=== PATIENT | female | born 1965 | race American Indian/Alaskan Native ===

== ENCOUNTER 2016-09-02 16:14 | Emergency (ER) | payer SELFPAY ==
[2016-09-02 16:46] VITALS: BP 178/108
--- NOTE | 2016-09-02 22:24 | Emergency Department Report ---
ED Back Pain/Injury HPI - General Chief Complaint: Pain General Stated Complaint: BACK PAIN/SOB/LEG PAIN/WRIST PAIN Time Seen by Provider: 09/02/16 21:50 Source: patient Limitations: No Limitations - History of Present Illness Initial Comments: 51 y/o female complain of back pain x 1 month with painful urination .pt state think she has uti .pt denies any vaginal discharge . MD Complaint: back pain Onset/Timin -: month(s) Similar Symptoms Previously: No Radiation: none Severity: moderate Severity scale (0 -10): 3 Quality: aching Consistency: intermittent Improves With: none Worsens With: none Context: other (urination ) Associated Symptoms: denies other symptoms - Related Data Previous Rx's Medication Instructions Recorded Last Taken Type Acetaminophen/Codeine [Tylenol #3] 1 tab PO Q6H PRN #20 tab 02/02/15 Unknown Rx Cyclobenzaprine [Flexeril 10mg] 10 mg PO QHS #15 tablet 02/02/15 Unknown Rx Ibuprofen [Motrin 600 MG tab] 600 mg PO Q8H PRN #50 tablet 12/27/15 Unknown Rx Sulfamethoxazole/Trimethoprim 1 each PO BID #20 tablet 12/27/15 Unknown Rx [Bactrim DS TAB] metFORMIN [Glucophage] 500 mg PO BID #90 tablet 12/27/15 Unknown Rx oxyCODONE /ACETAMINOPHEN [Percocet 1 tab PO Q6H PRN #30 tablet 12/27/15 Unknown Rx 5/325 mg] Ciprofloxacin [Ciprofloxacin ORAL 500 mg PO Q12H #14 ml 09/02/16 Unknown Rx LIQ] Phenazopyridine [Pyridium] 100 mg PO TID #6 tab 09/02/16 Unknown Rx Allergies Allergy/AdvReac Type Severity Reaction Status Date / Time No Known Allergies Allergy Verified 12/29/14 22:38 ED Review of Systems ROS: Stated complaint: BACK PAIN/SOB/LEG PAIN/WRIST PAIN Other details as noted in HPI Constitutional: denies: chills, fever Eyes: denies: eye pain, eye discharge, vision change ENT: denies: ear pain, throat pain Respiratory: denies: cough, shortness of breath, wheezing Cardiovascular: denies: chest pain, palpitations Endocrine: no symptoms reported Gastrointestinal: denies: abdominal pain, nausea, diarrhea Genitourinary: dysuria. denies: urgency, discharge Musculoskeletal: denies: back pain, joint swelling, arthralgia Skin: denies: rash, lesions Neurological: denies: headache, weakness, paresthesias Psychiatric: denies: anxiety, depression Hematological/Lymphatic: denies: easy bleeding, easy bruising ED Past Medical Hx - Past Medical History Previous Medical History?: Yes Hx Hypertension: Yes Hx Diabetes: Yes Hx Asthma: Yes - Surgical History Past Surgical History?: Yes Additional Surgical History: L wrist surgery 11/25, hysterectomy - Social History Smoking Status: Never Smoker Substance Use Type: None - Medications Home Medications: Home Medications Medication Instructions Recorded Confirmed Last Taken Type Acetaminophen/Codeine [Tylenol #3] 1 tab PO Q6H PRN #20 tab 02/02/15 12/26/15 Unknown Rx Cyclobenzaprine [Flexeril 10mg] 10 mg PO QHS #15 tablet 02/02/15 12/26/15 Unknown Rx Ibuprofen [Motrin 600 MG tab] 600 mg PO Q8H PRN #50 tablet 12/27/15 Unknown Rx Sulfamethoxazole/Trimethoprim 1 each PO BID #20 tablet 12/27/15 Unknown Rx [Bactrim DS TAB] metFORMIN [Glucophage] 500 mg PO BID #90 tablet 12/27/15 Unknown Rx oxyCODONE /ACETAMINOPHEN [Percocet 1 tab PO Q6H PRN #30 tablet 12/27/15 Unknown Rx 5/325 mg] Ciprofloxacin [Ciprofloxacin ORAL 500 mg PO Q12H #14 ml 09/02/16 Unknown Rx LIQ] Phenazopyridine [Pyridium] 100 mg PO TID #6 tab 09/02/16 Unknown Rx ED Physical Exam - General Limitations: No Limitations General appearance: alert, in no apparent distress - Head Head exam: Present: atraumatic, normocephalic - Eye Eye exam: Present: normal appearance - ENT ENT exam: Present: mucous membranes moist - Neck Neck exam: Present: normal inspection - Respiratory Respiratory exam: Present: normal lung sounds bilaterally. Absent: respiratory distress - Cardiovascular Cardiovascular Exam: Present: regular rate, normal rhythm. Absent: systolic murmur, diastolic murmur, rubs, gallop - GI/Abdominal GI/Abdominal exam: Present: soft, normal bowel sounds - Extremities Exam Extremities exam: Present: normal inspection - Back Exam Back exam: Present: normal inspection - Neurological Exam Neurological exam: Present: alert, oriented X3 - Psychiatric Psychiatric exam: Present: normal affect, normal mood - Skin Skin exam: Present: warm, dry, intact, normal color. Absent: rash ED Course Vital Signs 09/02/16 09/02/16 16:43 21:35 Temperature 98.3 F 97.8 F Pulse Rate 97 H 86 Respiratory 20 18 Rate Blood Pressure 178/108 Blood Pressure 178/108 [Right] O2 Sat by Pulse 98 96 Oximetry ED Medical Decision Making - Lab Data Laboratory Results - last 24 hr 09/02/16 Unknown Urine Color Yellow Urine Turbidity Clear Urine pH 6.0 Ur Specific Griffin 1.023 Urine Protein 100 mg/dl Urine Glucose (UA) Neg Urine Ketones Neg Urine Blood Neg Urine Nitrite Neg Urine Bilirubin Neg Urine Urobilinogen 2.0 Ur Leukocyte Esterase Mod Urine WBC (Auto) 6.0 Urine RBC (Auto) 3.0 U Epithel Cells (Auto) 15.0 H Urine Bacteria (Auto) 1+ Urine Mucus Few - Medical Decision Making urinary tract infection ,pt had been treat for uti in last 3 month with bactrim ds will use ciproflaxacin pt current hypertension at 178/108 pt state she was evaluate at [facility] this week and start on new hypertension medication .pt state she has not taken pm dosage .pt is asymptomatic. He has a follow-up appointment at [facility] in 3 days. She states what take medication when she arrived at home [facility] Critical care attestation.: If time is entered above; I have spent that time in minutes in the direct care of this critically ill patient, excluding procedure time. ED Disposition Clinical Impression: Urinary tract infection Qualifiers: Urinary tract infection type: site unspecified Hematuria presence: without hematuria Qualified Code(s): N39.0 - Urinary tract infection, site not specified Disposition: DISCHARGED TO HOME OR SELFCARE Is pt being admited?: No Does the pt Need Aspirin: No Condition: Stable Instructions: Urinary Tract Infection in Women (ED) Prescriptions: Ciprofloxacin [Ciprofloxacin ORAL LIQ] 500 mg PO Q12H #14 ml Phenazopyridine [Pyridium] 100 mg PO TID #6 tab Referrals: PRIMARY CARE, [Primary Care Provider] - 3-5 Days [facility] [Outside] - 3-5 Days Forms: Work/School Release Form(ED) Time of Disposition: 23:19
[2016-09-02 22:53] LABS: Bacteria,Urine 1+ /HPF (Negative); Bilirubin,Urine NEG (Negative); Blood,Urine NEG (Negative); Ketones,Urine NEG (Negative); Leukocyte Esterase,Urine MOD (Negative); Mucus,Urine FEW /HPF; Nitrite,Urine NEG (Negative)
== END 2016-09-02 23:28 | disposition home or self-care (01) ==
LOC: ED 16:14
DX: N39.0 Urinary tract infection, site not specified (principal); I10 Essential (primary) hypertension; E11.9 Type 2 diabetes mellitus without complications; J45.909 Unspecified asthma, uncomplicated
CPT/HCPCS: 81001; 99283

== ENCOUNTER 2017-01-16 11:21 | Emergency (ER) | payer OTHER ==
[2017-01-16 12:49] LABS: Basophils % (Auto) 0.7 % (0.0-1.8); Eosinophils % (Auto) 2.4 % (0.0-4.3); Hematocrit 38.6 % (30.3-42.9); Hemoglobin 12.8 gm/dl (10.1-14.3); Mean Corpuscular HGB Conc 33 % (30-34); Mean Corpuscular Hemoglobin 30 pg (28-32); Mean Corpuscular Volume 91 fl (79-97); Platelet Count 118 K/mm3 (140-440); Red Blood Count 4.24 M/mm3 (3.65-5.03); Red Cell Distribution Width 13.5 % (13.2-15.2); White Blood Count 4.9 K/mm3 (4.5-11.0)
[2017-01-16 13:02] LABS: Anion Gap 17 mmol/L; Blood Urea Nitrogen 14 mg/dL (7-17); Calcium 9.3 mg/dL (8.4-10.2); Carbon Dioxide 26 mmol/L (22-30); Chloride 95.7 mmol/L (98-107); Glucose 397 mg/dL (65-100); Sodium 135 mmol/L (137-145)
--- NOTE | 2017-01-16 14:06 | XRay Report ---
CHEST 2 VIEWS INDICATION: Shortness of breath. COMPARISON: 08/22/2015 FINDINGS: PA and lateral chest radiographs demonstrate stable cardiomediastinal silhouette and right more than left lung scarring. No significant pleural effusions or CHF. Stable bones. CONCLUSION: No acute chest process with stable fibrotic changes, as described. Thank you for the opportunity to participate in this patient's care.
[2017-01-16] MEDS ORDERED: NACL 0.9% 1000 ML 1,000 ML ONE (16:12)
[2017-01-16 16:31] VITALS: BP 144/82
[2017-01-16] MEDS ORDERED: NACL 0.9% 1000 ML 1,000 ML IV ONE (16:34)
[2017-01-16 16:49] LABS: Bilirubin,Urine NEG (Negative); Blood,Urine NEG (Negative); Ketones,Urine NEG (Negative); Leukocyte Esterase,Urine LG (Negative); Mucus,Urine FEW /HPF; Nitrite,Urine NEG (Negative); Urobilinogen,Urine < 2.0 mg/dL (<2.0)
--- NOTE | 2017-01-16 17:41 | Emergency Department Report ---
ED Shortness of Breath HPI - General Chief Complaint: Dyspnea/Respdistress Stated Complaint: SOB Time Seen by Provider: 01/16/17 12:07 Source: patient Mode of arrival: Wheelchair Limitations: No Limitations - History of Present Illness Initial Comments: Pt is a 51 yr old female who presents to the ED c/o generalized weakness, body aches, and dyspnea. She reports this has been going on for the past few months and has not been able to follow up with primary care due to lack of insurance and lack of money. Pt denies any fevers, chills, VARGAS, cough, congestion, sore throat, CP, abd pain, NVD, extremity swelling/pain, travel, or sick contacts - Related Data Previous Rx's Medication Instructions Recorded Last Taken Type Acetaminophen/Codeine [Tylenol #3] 1 tab PO Q6H PRN #20 tab 02/02/15 Unknown Rx Cyclobenzaprine [Flexeril 10mg] 10 mg PO QHS #15 tablet 02/02/15 Unknown Rx Ibuprofen [Motrin 600 MG tab] 600 mg PO Q8H PRN #50 tablet 12/27/15 Unknown Rx Sulfamethoxazole/Trimethoprim 1 each PO BID #20 tablet 12/27/15 Unknown Rx [Bactrim DS TAB] metFORMIN [Glucophage] 500 mg PO BID #90 tablet 12/27/15 Unknown Rx oxyCODONE /ACETAMINOPHEN [Percocet 1 tab PO Q6H PRN #30 tablet 12/27/15 Unknown Rx 5/325 mg] Ciprofloxacin [Ciprofloxacin ORAL 500 mg PO Q12H #14 ml 09/02/16 Unknown Rx LIQ] Phenazopyridine [Pyridium] 100 mg PO TID #6 tab 09/02/16 Unknown Rx Allergies Allergy/AdvReac Type Severity Reaction Status Date / Time No Known Allergies Allergy Verified 12/29/14 22:38 ED Review of Systems ROS: Stated complaint: SOB Other details as noted in HPI Comment: All other systems reviewed and negative ED Past Medical Hx - Past Medical History Previous Medical History?: Yes Hx Hypertension: Yes Hx Diabetes: Yes Hx Asthma: Yes - Surgical History Past Surgical History?: Yes Additional Surgical History: L wrist surgery 11/25, hysterectomy - Social History Smoking Status: Never Smoker Substance Use Type: Alcohol, Prescribed - Medications Home Medications: Home Medications Medication Instructions Recorded Confirmed Last Taken Type Acetaminophen/Codeine [Tylenol #3] 1 tab PO Q6H PRN #20 tab 02/02/15 12/26/15 Unknown Rx Cyclobenzaprine [Flexeril 10mg] 10 mg PO QHS #15 tablet 02/02/15 12/26/15 Unknown Rx Ibuprofen [Motrin 600 MG tab] 600 mg PO Q8H PRN #50 tablet 12/27/15 Unknown Rx Sulfamethoxazole/Trimethoprim 1 each PO BID #20 tablet 12/27/15 Unknown Rx [Bactrim DS TAB] metFORMIN [Glucophage] 500 mg PO BID #90 tablet 12/27/15 Unknown Rx oxyCODONE /ACETAMINOPHEN [Percocet 1 tab PO Q6H PRN #30 tablet 12/27/15 Unknown Rx 5/325 mg] Ciprofloxacin [Ciprofloxacin ORAL 500 mg PO Q12H #14 ml 09/02/16 Unknown Rx LIQ] Phenazopyridine [Pyridium] 100 mg PO TID #6 tab 09/02/16 Unknown Rx ED Physical Exam - General Limitations: No Limitations General appearance: alert, in no apparent distress, other (Morbidly obese) - Head Head exam: Present: atraumatic, normocephalic - Eye Eye exam: Present: normal appearance, PERRL, EOMI. Absent: scleral icterus, conjunctival injection Pupils: Present: normal accommodation - ENT ENT exam: Present: normal exam, mucous membranes moist - Neck Neck exam: Present: normal inspection, full ROM. Absent: tenderness, meningismus - Respiratory Respiratory exam: Present: normal lung sounds bilaterally, decreased breath sounds (at the bases). Absent: respiratory distress, wheezes, rales, rhonchi, stridor, chest wall tenderness - Cardiovascular Cardiovascular Exam: Present: regular rate, normal rhythm. Absent: systolic murmur, diastolic murmur, rubs, gallop - GI/Abdominal GI/Abdominal exam: Present: soft, normal bowel sounds. Absent: distended, tenderness, guarding, rebound, rigid - Extremities Exam Extremities exam: Present: normal inspection - Back Exam Back exam: Present: normal inspection - Neurological Exam Neurological exam: Present: alert, oriented X3 - Psychiatric Psychiatric exam: Present: normal affect, normal mood - Skin Skin exam: Present: warm, dry, intact, normal color. Absent: rash ED Course Vital Signs 01/16/17 01/16/17 11:31 16:15 Temperature 97.9 F 97.7 F Pulse Rate 97 H 84 Respiratory 20 16 Rate Blood Pressure 156/131 Blood Pressure 144/82 [Left] O2 Sat by Pulse 100 100 Oximetry ED Medical Decision Making - Lab Data Result diagrams: 01/16/17 12:22 01/16/17 12:22 - EKG Data -: EKG Interpreted by Me - EKG Data 01/16/17 17:37 Normal sinus rhythm at 74 bpm, QTC 437 ms, normal axis, no LVH, no ST changes, no STEMI - Radiology Data Radiology results: report reviewed, image reviewed CXR: Fibrotic changes, right greater than the left - Medical Decision Making PERC score: 0 Given these are chronic issues for the patient and she has fibrotic changes in the lungs, patient instructed to follow up with primary care I also discussed patient's elevated glucose numbers, patient suffers from Type II DM, and takes metformin 500mg BID. She has been compliant and does report she used to be on 1000mg BID. The "pains" she has been c/o are likely neuropathic pains in her hands and feet. Pt likely has uncontrolled diabetes. She has not had her A1C checked in a long time. It was recommended to the patient to follow up with [place] or a PMD of her choice to get her DM on track. Diet and lifestyle changes was also discussed with the patient. Critical care attestation.: If time is entered above; I have spent that time in minutes in the direct care of this critically ill patient, excluding procedure time. ED Disposition Clinical Impression: Weakness, Body aches, Dyspnea, Hyperglycemia Disposition: DC-01 TO HOME OR SELFCARE Is pt being admited?: No Condition: Stable Instructions: Weakness (ED), Arthralgia (ED), Dyspnea (ED), Diabetic Hyperglycemia (ED) Referrals: PRIMARY CARE, [Primary Care Provider] - 3-5 Days
--- NOTE | 2017-01-16 19:08 | Emergency Department Report ---
Entered by YASIR ABARCA, acting as scribe for SUKHDEV OTERO PA. Chief Complaint: Dyspnea/Respdistress Stated Complaint: SOB Time Seen by Provider: 01/16/17 12:03 - HPI History of Present Illness: 51 y/o female with PMHx of diabetes, HTN, and asthma, presents to the ED c/o SOB beginning several days ago. Associated symptoms of occasional nausea and dizziness described as lightheadedness, but she denies vomiting and diarrhea. Secondary c/o generalized pain beginning several months ago. Patient states she is compliant with metformin, amlodipine, glipizide, and gabapentin, and has an asthma pump at home. No other complaints. - ROS Review of Systems: RESP: positive for SOB NEURO: positive for dizziness CONSTITUTIONAL : positive for body aches All other systems reviewed and negative. - Exam Vital Signs: Vital Signs 01/16/17 11:31 Temperature 97.9 F Pulse Rate 97 H Respiratory 20 Rate Blood Pressure 156/131 O2 Sat by Pulse 100 Oximetry Physical Exam: Constitutional: Non toxic appearing, NAD. Cardiovascular: Normal rate and rhythm with normal S1/S2 sounds. Respiratory: No respiratory distress. Lung sounds clear to auscultation bilaterally. No wheezing. Abdomen: Abdomen is non-distended, soft with no tenderness to palpation in all quadrants. MSE screening note: Focused history and physical exam performed. Due to findings the following was ordered: ED Medical Decision Making - Medical Decision Making Alert and oriented x3. EKG, chest X-ray, and labs ordered. No acute distress, Patient is stable. ED Disposition for MSE Condition: Stable Referrals: PRIMARY CARE,MD [Primary Care Provider] - 3-5 Days This documentation as recorded by the scribe,YASIR ABARCA,accurately reflects the service I personally performed and the decisions made by ,SUKHDEV OTERO PA.
== END 2017-01-16 19:06 | disposition home or self-care (01) ==
LOC: ED 11:21
DX: E11.65 Type 2 diabetes mellitus with hyperglycemia (principal); R53.1 Weakness; M79.1 Myalgia; R06.00 Dyspnea, unspecified; I10 Essential (primary) hypertension; J45.909 Unspecified asthma, uncomplicated
CPT/HCPCS: 36415; 71020; 80048; 81001; 82962; 84484; 84703; 85025; 93005; 93010; 96360; 99284; J7030

== ENCOUNTER 2017-04-01 03:58 | Emergency (ER) | payer SELFPAY ==
[2017-04-01] MEDS ORDERED: ZOFRAN ODT PO ONE (06:14)
[2017-04-01] MEDS ORDERED: NORCO 10/325 PO ONE (06:14)
--- NOTE | 2017-04-01 07:53 | XRay Report ---
FINAL REPORT EXAM: XR FOOT 2V RT HISTORY: fall/rt foot swelling TECHNIQUE: Two views of the right foot. PRIORS: None. FINDINGS: There is no evidence of acute fracture involving the foot. Lateral view demonstrates a distal fibular fracture.. There is no evidence of joint dislocation. IMPRESSION: No acute fracture seen involving the foot. Lateral view suggest fracture involving distal fibula. See separate report for right ankle.
--- NOTE | 2017-04-01 07:54 | XRay Report ---
FINAL REPORT EXAM: XR ANKLE 2V RT HISTORY: fall/rt ankle swelling TECHNIQUE: Right ankle two views PRIORS: None. FINDINGS: There is an oblique fracture through the distal fibula. This probably extends to the level of the joint, compatible with a Mariee B fracture. There is a small avulsion fragment adjacent to the medial malleolus. Slight displacement posterolaterally of the talus, medial malleolar fragment and distal fibula noted. There is soft tissue swelling especially laterally. IMPRESSION: Oblique fracture of distal fibula. Avulsion fracture of medial malleolus. There is mild posterolateral displacement.
--- NOTE | 2017-04-01 08:10 | Emergency Department Report ---
HPI - General Chief Complaint: Extremity Injury, Lower Time Seen by Provider: 04/01/17 07:48 - HPI HPI: Pt is a 51 yo with PMH of DM and HTN controlled qwith medication who presents staus post fall from kitchen steps at midnight today. Pt states she twisted her ankle and heard a pop as she was going down the steps, she states she did not hit her head or had any LOC. She reports right ankle pain and swelling since fall. she describes pain as throbbing and aching in nature localized to ankle. she denies loss of sensation ED Past Medical Hx - Past Medical History Previous Medical History?: Yes Hx Hypertension: Yes Hx Diabetes: Yes (po meds) Hx Asthma: Yes Additional medical history: diabetic neuropathy - Surgical History Past Surgical History?: Yes Additional Surgical History: L wrist surgery 11/25, hysterectomy - Social History Smoking Status: Never Smoker Substance Use Type: None - Medications Home Medications: Home Medications Medication Instructions Recorded Confirmed Last Taken Type Sulfamethoxazole/Trimethoprim 1 each PO BID #20 tablet 12/27/15 Unknown Rx [Bactrim DS TAB] metFORMIN [Glucophage] 500 mg PO BID #90 tablet 12/27/15 Unknown Rx oxyCODONE /ACETAMINOPHEN [Percocet 1 tab PO Q6H PRN #30 tablet 12/27/15 Unknown Rx 5/325 mg] Ciprofloxacin [Ciprofloxacin ORAL 500 mg PO Q12H #14 ml 09/02/16 Unknown Rx LIQ] Phenazopyridine [Pyridium] 100 mg PO TID #6 tab 09/02/16 Unknown Rx Acetaminophen/Codeine [Tylenol 1 tab PO Q6H PRN #20 tab 04/01/17 Unknown Rx /Codeine # 3 tab] Cyclobenzaprine [Flexeril 10 MG 10 mg PO QHS #24 tablet 04/01/17 Unknown Rx TAB] Ibuprofen [Motrin 600 MG tab] 600 mg PO Q8H PRN #50 tablet 04/01/17 Unknown Rx ED Review of Systems ROS: Stated complaint: RT ANKLE PAIN Other details as noted in HPI Constitutional: denies: chills, fever Eyes: denies: eye pain, eye discharge, vision change ENT: denies: ear pain, throat pain Respiratory: denies: cough, shortness of breath, wheezing Cardiovascular: denies: chest pain, palpitations Endocrine: no symptoms reported Gastrointestinal: denies: abdominal pain, nausea, vomiting, diarrhea Genitourinary: denies: urgency, dysuria, discharge Musculoskeletal: denies: back pain, joint swelling, arthralgia Skin: denies: rash, lesions Neurological: denies: headache, weakness, numbness, paresthesias, confusion Psychiatric: denies: anxiety, depression Hematological/Lymphatic: denies: easy bleeding, easy bruising Physical Exam - Physical Exam Vital Signs: Vital Signs 04/01/17 04/01/17 04:58 06:28 Temperature 98.2 F Pulse Rate 82 Respiratory 18 15 Rate Blood Pressure 150/87 O2 Sat by Pulse 98 Oximetry Physical Exam: GENERAL: Alert and oriented x3, no apparent distress, Normal Gait, atraumatic. HEAD: Head is normocephalic and a-traumatic. NECK: Supple. Non edematous, No lymphadenopathy or thyromegaly. LUNGS: Symetrical with respiration, No wheezing, no rales or crackles, CTAB. HEART: S1, S2 present, regular rate and rhythm without murmur, no rubs, no gallops. EXTREMITIES/MUSCULOSKELETAL: No cyanosis, clubbing, rash, lesions or edema. Full ROM bilaterally. UE/LE Pulses 2+ bilaterally. right ankle swelling lateral aspect, no active bleed, tender to palpation, no deformity seen, NEUROLOGIC: No focal Deficit, Cranial nerves II through XII are grossly intact. No loss of sensation, PSYCHIATRIC: Mood is congruent with affect, denies suicidal or homicidal ideations. SKIN: Warm and dry, No lesions, No ulceration or induration present. ED Course Vital Signs 04/01/17 04/01/17 04:58 06:28 Temperature 98.2 F Pulse Rate 82 Respiratory 18 15 Rate Blood Pressure 150/87 O2 Sat by Pulse 98 Oximetry ED Medical Decision Making - Radiology Data Radiology results: report reviewed, image reviewed FINAL REPORT EXAM: XR ANKLE 2V RT HISTORY: fall/rt ankle swelling TECHNIQUE: Right ankle two views PRIORS: None. FINDINGS: There is an oblique fracture through the distal fibula. This probably extends to the level of the joint, compatible with a Mariee B fracture. There is a small avulsion fragment adjacent to the medial malleolus. Slight displacement posterolaterally of the talus, medial malleolar fragment and distal fibula noted. There is soft tissue swelling especially laterally. IMPRESSION: Oblique fracture of distal fibula. Avulsion fracture of medial malleolus. There is mild posterolateral displacement. Transcribed By: ANTONY Dictated By: LORENZO JIMÉNEZ MD Electronically Authenticated By: LORENZO JIMÉNEZ MD Signed Date/Time: 04/01/17 0748 - Medical Decision Making 51 yo f presents with fracture of lower leg ED course Xrays taken. See results above. Pt recieved Pain control. OCL posterior leg Splint applied to leg and crutches given at d/c. Discussed respiratory: The patient. Discussed the patient to keep leg elevated and stay off of the foot. Discussed to call orthopedic office tomorrow to make an appointment to be seen as soon as possible Post splint exam: neurovascular intact. pt is aaox3 vss, no acute distress discussed follow up with Orthopedic tomorrow as reffered. Critical care attestation.: If time is entered above; I have spent that time in minutes in the direct care of this critically ill patient, excluding procedure time. ED Disposition Clinical Impression: Ankle fracture, lateral malleolus, closed Qualifiers: Encounter type: initial encounter Fracture alignment: displaced Laterality: right Qualified Code(s): S82.61XA - Displaced fracture of lateral malleolus of right fibula, initial encounter for closed fracture Closed fibular fracture Qualifiers: Encounter type: initial encounter Fibula location: shaft Fracture morphology: oblique Fracture alignment: nondisplaced Laterality: right Qualified Code(s): S82.434A - Nondisplaced oblique fracture of shaft of right fibula, initial encounter for closed fracture Disposition: DC- TO HOME OR SELFCARE Is pt being admited?: No Does the pt Need Aspirin: No Condition: Stable Instructions: Ankle Fracture (ED), Leg Fracture (ED), RICE Therapy (ED) Prescriptions: Cyclobenzaprine [Flexeril 10 MG TAB] 10 mg PO QHS #24 tablet Acetaminophen/Codeine [Tylenol /Codeine # 3 tab] 1 tab PO Q6H PRN #20 tab PRN Reason: Pain Ibuprofen [Motrin 600 MG tab] 600 mg PO Q8H PRN #50 tablet PRN Reason: Pain Referrals: PRADIP REYES MD [Primary Care Provider] - 3-5 Days WILD CORRALES MD [Staff Physician] - 3-5 Days Forms: Work/School Release Form(ED) Time of Disposition: 08:27
[2017-04-01 08:26] VITALS: BP 106/48
== END 2017-04-01 09:34 | disposition home or self-care (01) ==
LOC: ED 03:58
DX: S82.61XA Displaced fracture of lateral malleolus of right fibula, initial encounter for closed fracture (principal); I10 Essential (primary) hypertension; E11.40 Type 2 diabetes mellitus with diabetic neuropathy, unspecified; W10.9XXA Fall (on) (from) unspecified stairs and steps, initial encounter; Y93.89 Activity, other specified; Y92.000 Kitchen of unspecified non-institutional (private) residence as the place of occurrence of the external cause; Y99.8 Other external cause status
CPT/HCPCS: 99284; Q0162

== ENCOUNTER 2017-07-26 10:21 | Emergency (ER) | payer SELFPAY ==
[2017-07-26 10:30] VITALS: BP 157/99
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
== END 2017-07-26 12:21 | disposition left against medical advice (07) ==
LOC: ED 10:21
DX: M54.2 Cervicalgia (principal); M54.5 Low back pain; G89.29 Other chronic pain; V49.3XXA Car occupant (driver) (passenger) injured in unspecified nontraffic accident, initial encounter; Y93.89 Activity, other specified; Y99.8 Other external cause status; Y92.410 Unspecified street and highway as the place of occurrence of the external cause
CPT/HCPCS: 99282

== ENCOUNTER 2020-12-20 17:06 | Inpatient (IN) | payer OTHER, SELFPAY ==
[2020-12-20] MEDS ORDERED: cefTRIAXone/NS 1 GM/50 ML 1 GM/50 ML BAG IV ONE (19:31)
[2020-12-20] MEDS ORDERED: AZITHROMYCIN/NS 500 MG/250 ML 500 MG/250 ML BAG IV ONE (19:31)
[2020-12-20] MEDS ORDERED: dexAMETHasone 20 MG/5 ML VIAL IV ONE (19:32)
[2020-12-20] MEDS ORDERED: IPRATROPIUM 0.02% NEBU 2.5 ML IH ONE (19:32)
[2020-12-20] MEDS ORDERED: ALBUTEROL 2.5 MG/3 ML NEBU IH ONE (19:32)
[2020-12-20 19:51] LABS: Basophils % (Auto) 0.4 % (0.0-1.8); Eosinophils % (Auto) 0.1 % (0.0-4.3); Hematocrit 39.5 % (30.3-42.9); Hemoglobin 13.1 gm/dl (10.1-14.3); Lymphocytes # (Auto) 1.2 K/mm3 (1.2-5.4); Lymphocytes % (Auto) 41.2 % (13.4-35.0); Mean Corpuscular HGB Conc 33 % (30-34); Mean Corpuscular Volume 97 fl (79-97); Monocytes # (Auto) 0.4 K/mm3 (0.0-0.8); Monocytes % (Auto) 13.2 % (0.0-7.3); Red Blood Count 4.08 M/mm3 (3.65-5.03); Red Cell Distribution Width 14.4 % (13.2-15.2)
[2020-12-20 20:08] LABS: Alanine Aminotransferase 96 units/L (7-56); Albumin 3.7 g/dL (3.9-5); BUN/Creatinine Ratio 16; Blood Urea Nitrogen 23 mg/dL (7-17); Calcium 8.3 mg/dL (8.4-10.2); Hemolysis Index 21; Platelet Count 116 K/mm3 (140-440)
--- NOTE | 2020-12-20 20:12 | XRay Report ---
CHEST 1 VIEW 12/20/2020 7:30 PM INDICATION / CLINICAL INFORMATION: SOB, hypoxia. COMPARISON: 01/16/17. FINDINGS: SUPPORT DEVICES: None. HEART / MEDIASTINUM: The heart size and pulmonary vasculature are normal. LUNGS / PLEURA: There is mild patchy parenchymal disease in the right mid to lower lung and in the le ft lower lung, more prominent than on the prior exam. No pleural effusion. No pneumothorax. ADDITIONAL FINDINGS: No significant additional findings. IMPRESSION: Mild patchy parenchymal opacities bilaterally are nonspecific. The findings may be relate d to pulmonary edema or pneumonia. Signer Name: Lizandro Mckeon MD Signed: 12/20/2020 8:07 PM Workstation Name: [id number]
--- NOTE | 2020-12-20 20:25 | Emergency Department Report ---
ED Shortness of Breath HPI - General Chief Complaint: Weakness Stated Complaint: WEAKNESS Time Seen by Provider: 12/20/20 19:22 Source: EMS Mode of arrival: Ambulatory Limitations: No Limitations - History of Present Illness Initial Comments: Chief complaint: Fever, shortness of breath, cough, fatigue HPI: This is a 55-year-old female history of asthma, diabetes mellitus, BMI 49 who presents with shortness of breath fever cough chills for 1 week. No known sick contacts. She does not work. She lives with son who does work. Son also smokes in the home. Patient has had shortness of breath, cough, body aches, fever or chills for 1 week. She denies loss of sense of taste or smell. However she has had poor appetite. She did not receive a Covid vaccine. No known previous Covid infection. She denies chest pain, abdominal pain, diarrhea. Oxygen saturation 58% on room air in triage. Temperature 100.6 F, MD Complaint: shortness of breath, cough -: Gradual, week(s) (1 week) Severity: severe Consistency: constant Improves With: rest Worsens With: exertion Known History Of: asthma Context: recent illness Associated Symptoms: fever, cough Treatments Prior to Arrival: none - Related Data Previous Rx's Medication Instructions Recorded Last Taken Type Sulfamethoxazole/Trimethoprim 1 each PO BID #20 tablet 12/27/15 Unknown Rx [Bactrim DS TAB] metFORMIN [Glucophage] 500 mg PO BID #90 tablet 12/27/15 Unknown Rx oxyCODONE /ACETAMINOPHEN [Percocet 1 tab PO Q6H PRN #30 tablet 12/27/15 Unknown Rx 5/325 mg] Ciprofloxacin [Ciprofloxacin ORAL 500 mg PO Q12H #14 ml 09/02/16 Unknown Rx LIQ] Phenazopyridine [Pyridium] 100 mg PO TID #6 tab 09/02/16 Unknown Rx Acetaminophen/Codeine [Tylenol 1 tab PO Q6H PRN #20 tab 04/01/17 Unknown Rx /Codeine # 3 tab] Cyclobenzaprine [Flexeril 10 MG 10 mg PO QHS #24 tablet 04/01/17 Unknown Rx TAB] Ibuprofen [Motrin 600 MG tab] 600 mg PO Q8H PRN #50 tablet 04/01/17 Unknown Rx Allergies Allergy/AdvReac Type Severity Reaction Status Date / Time No Known Allergies Allergy Verified 12/29/14 22:38 ED Review of Systems ROS: Stated complaint: WEAKNESS Other details as noted in HPI Comment: All other systems reviewed and negative Constitutional: chills, fever, malaise ENT: denies: throat pain, congestion Respiratory: cough, shortness of breath. denies: wheezing Cardiovascular: denies: chest pain Gastrointestinal: denies: abdominal pain, nausea, vomiting Neurological: headache ED Past Medical Hx - Past Medical History Previous Medical History?: Yes Hx Hypertension: Yes Hx Diabetes: Yes (po meds) Hx Asthma: Yes Additional medical history: diabetic neuropathy - Surgical History Additional Surgical History: L wrist surgery 11/25, hysterectomy - Social History Smoking Status: Never Smoker - Medications Home Medications: Home Medications Medication Instructions Recorded Confirmed Last Taken Type Sulfamethoxazole/Trimethoprim 1 each PO BID #20 tablet 12/27/15 Unknown Rx [Bactrim DS TAB] metFORMIN [Glucophage] 500 mg PO BID #90 tablet 12/27/15 Unknown Rx oxyCODONE /ACETAMINOPHEN [Percocet 1 tab PO Q6H PRN #30 tablet 12/27/15 Unknown Rx 5/325 mg] Ciprofloxacin [Ciprofloxacin ORAL 500 mg PO Q12H #14 ml 09/02/16 Unknown Rx LIQ] Phenazopyridine [Pyridium] 100 mg PO TID #6 tab 09/02/16 Unknown Rx Acetaminophen/Codeine [Tylenol 1 tab PO Q6H PRN #20 tab 04/01/17 Unknown Rx /Codeine # 3 tab] Cyclobenzaprine [Flexeril 10 MG 10 mg PO QHS #24 tablet 04/01/17 Unknown Rx TAB] Ibuprofen [Motrin 600 MG tab] 600 mg PO Q8H PRN #50 tablet 04/01/17 Unknown Rx ED Physical Exam - General Limitations: No Limitations General appearance: alert, other (Speaking full word sentences, mild work of breathing.) - Head Head exam: Present: atraumatic, normocephalic - Eye Eye exam: Present: normal appearance - ENT ENT exam: Present: mucous membranes moist - Neck Neck exam: Present: normal inspection, full ROM - Respiratory Respiratory exam: Present: decreased breath sounds. Absent: wheezes, rales, rhonchi, accessory muscle use, prolonged expiratory - Cardiovascular Cardiovascular Exam: Present: normal rhythm, tachycardia, normal heart sounds. Absent: systolic murmur, diastolic murmur, rubs, gallop - GI/Abdominal GI/Abdominal exam: Present: soft, normal bowel sounds. Absent: distended, tenderness, guarding - Extremities Exam Extremities exam: Present: normal inspection - Neurological Exam Neurological exam: Present: alert, oriented X3 - Psychiatric Psychiatric exam: Present: normal affect, normal mood - Skin Skin exam: Present: warm, dry, intact, normal color. Absent: rash ED Course Vital Signs 12/20/20 12/20/20 19:16 19:50 Temperature 100.6 F H Pulse Rate 107 H Pulse Rate [ 108 H Bilateral] Respiratory 20 Rate Respiratory 20 Rate [Bilateral ] Blood Pressure 105/53 [Right] ED Medical Decision Making - Lab Data Result diagrams: 12/20/20 19:27 12/20/20 19:43 Laboratory Results - last 24 hr 12/20/20 12/20/20 12/20/20 19:27 19:27 19:27 WBC 2.9 L RBC 4.08 Hgb 13.1 Hct 39.5 MCV 97 MCH 32 MCHC 33 RDW 14.4 Plt Count 116 L Lymph % (Auto) 41.2 H Mason % (Auto) 13.2 H Eos % (Auto) 0.1 Baso % (Auto) 0.4 Lymph # (Auto) 1.2 Mason # (Auto) 0.4 Eos # (Auto) 0.0 Baso # (Auto) 0.0 Seg Neutrophils % 45.1 Seg Neutrophils # 1.3 L D-Dimer Sodium 135 L Potassium 4.7 Chloride 96.1 L Carbon Dioxide 26 Anion Gap 18 BUN 23 H Creatinine 1.4 H Estimated GFR 47 BUN/Creatinine Ratio 16 Glucose 295 H Lactic Acid 1.70 Calcium 8.3 L Ferritin Total Bilirubin 0.90 AST 125 H ALT 96 H Alkaline Phosphatase 323 H Lactate Dehydrogenase Troponin T < 0.010 C-Reactive Protein Total Protein 8.7 H Albumin 3.7 L Albumin/Globulin Ratio 0.7 12/20/20 12/20/20 12/20/20 19:27 19:43 19:43 WBC RBC Hgb Hct MCV MCH MCHC RDW Plt Count Lymph % (Auto) Mason % (Auto) Eos % (Auto) Baso % (Auto) Lymph # (Auto) Mason # (Auto) Eos # (Auto) Baso # (Auto) Seg Neutrophils % Seg Neutrophils # D-Dimer 260.58 H Sodium Potassium Chloride Carbon Dioxide Anion Gap BUN Creatinine Estimated GFR BUN/Creatinine Ratio Glucose 297 H Lactic Acid Calcium Ferritin 1420.0 H Total Bilirubin AST ALT Alkaline Phosphatase Lactate Dehydrogenase 491 H Troponin T C-Reactive Protein 5.50 H Total Protein Albumin Albumin/Globulin Ratio - Radiology Data Radiology results: report reviewed Patient Name: BROOKE HAYNES Gender: Female Date of : 1965 Referring Provider: SUSU ROSALES Organization: [facility] Accession Number: [id number] Requested Date: December 20, 2020 19:23 Report Status: Final Requested Procedure: 1 Procedure Description: XR chest 1V ap Modality: XR Findings Reporting MD: Lizandro Mckeon Dictation Time: December 20, 2020 19:07 Equestrian Trainer: Not available Check Inspector Date: CHEST 1 VIEW 12/20/2020 7:30 PM INDICATION / CLINICAL INFORMATION: SOB, hypoxia. COMPARISON: 01/16/17. FINDINGS: SUPPORT DEVICES: None. HEART / MEDIASTINUM: The heart size and pulmonary vasculature are normal. LUNGS / PLEURA: There is mild patchy parenchymal disease in the right mid to lower lung and in the left lower lung, more prominent than on the prior exam. No pleural effusion. No pneumothorax. ADDITIONAL FINDINGS: No significant additional findings. IMPRESSION: Mild patchy parenchymal opacities bilaterally are nonspecific. The findings may be related to pulmonary edema or pneumonia. Signer Name: Lizandro Mckeon MD Signed: 12/20/2020 7:07 PM Workstation Name: [facility] - Medical Decision Making 1. Acute respiratory failure hypoxia due to suspected COVID-19 pneumonia with SIRS Patient treated IV dexamethasone, albuterol Atrovent bronchodilator therapy. IV antibiotics. Covid markers elevated. Patient maintaining oxygen saturation with 5 L nasal cannula. 2. hyperglycemia hx of DM no evidence of acidosis/ketosis 3. SIRS due to COVID infection Critical Care Time: Yes Critical care attestation.: If time is entered above; I have spent that time in minutes in the direct care of this critically ill patient, excluding procedure time. 40 minutes of critical care time excluding procedures were used in the care of the patient. I came immediately to the bedside upon patient's arrival to treatment room. I discussed treatment plan with the nursing team members. I rev iewed electronic record. I kept the family members informed. Patient required multiple interventions and reassessments. ED Disposition Clinical Impression: Acute respiratory failure with hypoxia, Pneumonia due to COVID-19 virus, Hyperglycemia due to type 2 diabetes mellitus, SIRS (systemic inflammatory response syndrome) Disposition: [id number] OP ADMIT IP TO THIS HOSP Is pt being admited?: Yes Does the pt Need Aspirin: No Condition: Fair Instructions: Bacterial Pneumonia (ED), Diabetes Mellitus Type 2 in Adults (ED)
[2020-12-20 20:29] LABS: C-Reactive Protein 5.5 mg/dL (0.00-1.30)
[2020-12-20] MEDS ORDERED: MORPHINE 2 MG/1 ML INJ ONE (23:03)
[2020-12-20] MEDS ORDERED: DEXTROSE 50% IN WATER (25GM) 50 ML SYRINGE IV PRN (23:15)
[2020-12-20] MEDS ORDERED: MAGNESIUM HYDROXIDE (MOM) ORAL LIQD UDC PO PRN (23:15)
[2020-12-20] MEDS ORDERED: ONDANSETRON 4 MG/2 ML INJ IV PRN (23:15)
--- NOTE | 2020-12-20 23:27 | History and Physical Report ---
History of Present Illness Date of examination: 12/20/20 Date of admission: 12/20/20 22:29 Chief complaint: Shortness of Breath History of present illness: 55-year-old female with known history of asthma, diabetes mellitus, obesity with a BMI of 49 presenting in the emergency room today complaining of shortness of breath, cough, fever and chills which has been ongoing for about 1 week. Patient has also had generalized body aches and pain over the past 1 week. She denies any recent travel and no sick contacts. Denies any contact with anyone with COVID-19. Patient lives at home with son and has not received any COVID-19 vaccine. She denies any nausea vomiting, no chest pain, no diarrhea, no loss of taste or smell. Upon arrival in the emergency room triage O2 saturation was about 58% on room air. Patient was placed on 4 L of oxygen with significant improvement in oxygen saturation. She had a fever of about 100.6 F. Work-up in the emergency room today chest x-ray reveals mild patchy parenchyma opacities bilaterally. Findings are related to pulmonary edema or pneumonia. Labs reveals elevated liver enzymes, leukopenia of 2.9. Patient has been admitted with pneumonia possibly secondary to COVID-19. Past History Past Medical History: diabetes, hypertension, other (Asthma,Diabetic Neuropathy,) Past Surgical History: hysterectomy, Other (Left Wrist surgery 11/2014) Social history: no significant social history Family history: no significant family history Medications and Allergies Allergies Allergy/AdvReac Type Severity Reaction Status Date / Time No Known Allergies Allergy Verified 12/29/14 22:38 Home Medications Medication Instructions Recorded Confirmed Last Taken Type Cyclobenzaprine [Flexeril 10 MG 10 mg PO QHS PRN 12/21/20 12/21/20 Unknown History TAB] Gabapentin [Neurontin] 800 mg PO TID 12/21/20 12/21/20 12/20/20 History metFORMIN [Glucophage] 1,000 mg PO BID 12/21/20 12/21/20 12/20/20 History traMADoL [Ultram 50 MG tab] 50 mg PO BID PRN MDD 100 12/21/20 12/21/20 Unknown History Review of Systems Constitutional: fever, chills Ears, nose, mouth and throat: no nasal congestion, no sore throat Cardiovascular: no chest pain, no palpitations Respiratory: cough, shortness of breath Gastrointestinal: no abdominal pain, no nausea, no vomiting, no diarrhea Genitourinary Female: no pelvic pain, no flank pain, no dysuria, no hematuria Musculoskeletal: no neck pain, no low back pain Integumentary: no rash, no pruritis Neurological: no headaches, no confusion Psychiatric: no anxiety, no depression Endocrine: no polyphagia, no polydipsia, no polyuria, no nocturia Exam - Constitutional Vitals: Temp Pulse Resp BP Pulse Ox 100.6 F H 100 H 17 165/78 96 12/20/20 19:16 12/20/20 22:45 12/20/20 22:45 12/20/20 22:45 12/20/20 22:59 General appearance: Present: no acute distress, well-nourished, obese - EENT Eyes: Present: PERRL, EOM intact. Absent: scleral icterus ENT: hearing intact, clear oral mucosa, dentition normal - Neck Neck: Present: supple, normal ROM - Respiratory Respiratory effort: normal Respiratory: bilateral: diminished - Cardiovascular Rhythm: regular Heart Sounds: Present: S1 & S2. Absent: gallop, systolic murmur, diastolic murmur, rub, click - Extremities Extremities: no ischemia, pulses intact, pulses symmetrical, No edema, normal temperature, normal color, Full ROM Peripheral Pulses: within normal limits - Abdominal General gastrointestinal: Present: soft, non-tender, non-distended, normal bowel sounds. Absent: mass - Integumentary Integumentary: Present: clear, warm, dry. Absent: rash - Musculoskeletal Musculoskeletal: strength equal bilaterally - Psychiatric Psychiatric: appropriate mood/affect, intact judgment & insight, memory intact, cooperative - Neurologic Neurologic: CNII-XII intact, no focal deficits, moves all extremities HEART Score - HEART Score Troponin: Troponin T < 0.010 ng/mL (0.00-0.029) 12/20/20 19:27 Results - Labs CBC & Chem 7: 12/20/20 19:27 12/20/20 19:43 Labs: Abnormal lab results 12/20/20 12/20/20 12/20/20 Range/Units 19:27 19:27 19:27 WBC 2.9 L (4.5-11.0) K/mm3 Plt Count 116 L (140-440) K/mm3 Lymph % (Auto) 41.2 H (13.4-35.0) % Warrick % (Auto) 13.2 H (0.0-7.3) % Seg Neutrophils # 1.3 L (1.8-7.7) K/mm3 D-Dimer 260.58 H (0-234) ng/mlDDU Sodium 135 L (137-145) mmol/L Chloride 96.1 L (98-107) mmol/L BUN 23 H (7-17) mg/dL Creatinine 1.4 H (0.6-1.2) mg/dL Glucose 295 H (65-100) mg/dL Calcium 8.3 L (8.4-10.2) mg/dL Ferritin (10.0-200.0) ng/mL AST 125 H (5-40) units/L ALT 96 H (7-56) units/L Alkaline Phosphatase 323 H (35-129) units/L Lactate Dehydrogenase (91-180) units/L C-Reactive Protein (0.00-1.30) mg/dL Total Protein 8.7 H (6.3-8.2) g/dL Albumin 3.7 L (3.9-5) g/dL 12/20/20 12/20/20 Range/Units 19:43 19:43 WBC (4.5-11.0) K/mm3 Plt Count (140-440) K/mm3 Lymph % (Auto) (13.4-35.0) % Warrick % (Auto) (0.0-7.3) % Seg Neutrophils # (1.8-7.7) K/mm3 D-Dimer (0-234) ng/mlDDU Sodium (137-145) mmol/L Chloride (98-107) mmol/L BUN (7-17) mg/dL Creatinine (0.6-1.2) mg/dL Glucose 297 H (65-100) mg/dL Calcium (8.4-10.2) mg/dL Ferritin 1420.0 H (10.0-200.0) ng/mL AST (5-40) units/L ALT (7-56) units/L Alkaline Phosphatase (35-129) units/L Lactate Dehydrogenase 491 H (91-180) units/L C-Reactive Protein 5.50 H (0.00-1.30) mg/dL Total Protein (6.3-8.2) g/dL Albumin (3.9-5) g/dL Assessment and Plan - Patient Problems (1) Pneumonia due to COVID-19 virus Current Visit: Yes Status: Acute Plan to address problem: Patient started on empiric IV antibiotics. We will place on isolation precautions. We will test for COVID-19. Consult placed to infectious disease for further evaluation and recommendation. (2) Acute respiratory failure with hypoxia Current Visit: Yes Status: Acute Plan to address problem: Patient was hypoxic with O2 saturation of 59% upon arrival in the emergency room possibly secondary to the underlying pneumonia. We will place on oxygen by nasal cannula and keep O2 saturation greater or equal to 94%. (3) Diabetes mellitus Current Visit: Yes Status: Acute Plan to address problem: We will monitor Accu-Cheks. Patient will be placed on sliding scale insulin. (4) Morbid obesity Current Visit: No Status: Acute Plan to address problem: Lifestyle modification encouraged. Dietary consult also requested. (5) Elevated liver enzymes Current Visit: Yes Status: Acute Plan to address problem: Possibly related to the Covid 19. We will monitor liver enzymes. Consult placed to gastroenterology for evaluation and recommendation. (6) DVT prophylaxis Current Visit: Yes Status: Acute Plan to address problem: Patient placed on subcutaneous Lovenox (7) Full code status Current Visit: Yes Status: Acute Plan to address problem: Patient is a full code.
[2020-12-20] MEDS: ACETAMINOPHEN 325 MG TAB PO PRN (23:41)
[2020-12-21] MEDS: MORPHINE 2 MG/1 ML INJ IV PRN (01:06)
[2020-12-21 06:34] LABS: Hematocrit 32.7 % (30.3-42.9); Hemoglobin 10.8 gm/dl (10.1-14.3); Mean Corpuscular HGB Conc 33 % (30-34); Mean Corpuscular Volume 96 fl (79-97); Platelet Count 104 K/mm3 (140-440); Red Cell Distribution Width 14.3 % (13.2-15.2)
[2020-12-21 06:42] LABS: INR 1.01 (0.87-1.13)
[2020-12-21 06:49] LABS: Calcium 7.7 mg/dL (8.4-10.2)
[2020-12-21] MEDS: INSULIN LISPRO 100 UNIT/ML SUB-Q SCH ×4 (07:30→22:26)
[2020-12-21 08:45] LABS: Total Cells Counted 50
[2020-12-21 08:47] LABS: Platelet Estimate Consistent w Auto; RBC Morphology Normal
--- NOTE | 2020-12-21 09:03 | Consultation ---
History of Present Illness History of present illness: This is a patient with history of obesity, asthma HTN and DM who comes in with shortness and cough.Also with myalgia for 1 week. She has not recd covid vaccination and lives at home w son who smokes. She reports that she has a small productive cough today. No wheezing but is still sob No recent antibx or steroid use She reports compliance w meds Past History Past Medical History: diabetes, hypertension, other (Asthma,Diabetic Neuropathy,) Past Surgical History: hysterectomy, Other (Left Wrist surgery 11/2014) Social history: no significant social history Family history: no significant family history Medications and Allergies Allergies Allergy/AdvReac Type Severity Reaction Status Date / Time No Known Allergies Allergy Verified 12/29/14 22:38 Home Medications Medication Instructions Recorded Confirmed Last Taken Type Cyclobenzaprine [Flexeril 10 MG 10 mg PO QHS PRN 12/21/20 12/21/20 Unknown History TAB] Gabapentin [Neurontin] 800 mg PO TID 12/21/20 12/21/20 12/20/20 History metFORMIN [Glucophage] 1,000 mg PO BID 12/21/20 12/21/20 12/20/20 History traMADoL [Ultram 50 MG tab] 50 mg PO BID PRN MDD 100 12/21/20 12/21/20 Unknown History Active Meds: Active Medications Acetaminophen (Acetaminophen 325 Mg Tab) 650 mg PO Q4H PRN PRN Reason: Pain MILD(1-3)/Fever >100.5/VARGAS Last Admin: 12/20/20 23:41 Dose: 650 mg Documented by: Dexamethasone (Dexamethasone 4 Mg/Ml Vial) 6 mg IV Q24HR TAMEKA Dextrose (Dextrose 50% In Water (25gm) 50 Ml Syringe) 50 ml IV Q30MIN PRN; Protocol PRN Reason: Hypoglycemia Enoxaparin Sodium (Enoxaparin 40 Mg/0.4 Ml Inj) 40 mg SUB-Q QDAY@2200 TAMEKA; Protocol Glipizide (Glipizide 10 Mg Tab) 10 mg PO BIDDIAB TAMEKA Ceftriaxone Sodium (Rocephin/Ns 2 Gm/100 Ml) 2 gm in 100 mls @ 200 mls/hr IV Q24H TAMEKA; Protocol Azithromycin (Zithromax/Ns) 500 mg in 250 mls @ 250 mls/hr IV Q24H TAEMKA; Protocol Insulin Human Lispro (Insulin Lispro 100 Unit/Ml) 0 unit SUB-Q ACHS [facility]; Protocol Last Admin: 12/21/20 07:30 Dose: 8 unit Documented by: Magnesium Hydroxide (Magnesium Hydroxide (Mom) Oral Liqd Udc) 30 ml PO Q4H PRN PRN Reason: Constipation Metformin HCl (Metformin 500 Mg Tab) 1,000 mg PO BIDDIAB TAMEKA Morphine Sulfate (Morphine 2 Mg/1 Ml Inj) 2 mg IV Q4H PRN PRN Reason: Pain, Moderate (4-6) Last Admin: 12/21/20 01:06 Dose: 2 mg Documented by: Ondansetron HCl (Ondansetron 4 Mg/2 Ml Inj) 4 mg IV Q8H PRN PRN Reason: Nausea And Vomiting Sodium Chloride (Sodium Chloride 0.9% 10 Ml Flush Syringe) 10 ml IV BID TAMEKA Sodium Chloride (Sodium Chloride 0.9% 10 Ml Flush Syringe) 10 ml IV PRN PRN PRN Reason: LINE FLUSH Physical Examination Vital signs: Vital Signs Temp Pulse Resp BP 100.6 F H 107 H 20 105/53 12/20/20 19:16 12/20/20 19:16 12/20/20 19:16 12/20/20 19:16 General appearance: no acute distress, alert (obese) Eyes: non-icteric ENT: oropharynx moist Neck: supple Effort: normal Ascultation: Bilateral: clear, diminished breath sounds Cardiovascular: regular rate and rhythm Gastrointestinal: normoactive bowel sounds, soft, non-tender Integumentary: normal Extremities: no cyanosis Musculoskeletal: no deformities normal mental status, non-focal exam mood appropriate, affect normal Results - Laboratory Findings CBC and BMP: 12/21/20 05:50 12/21/20 05:50 PT/INR, D-dimer PT 13.1 Sec. (12.2-14.9) 12/21/20 05:50 INR 1.01 (0.87-1.13) 12/21/20 05:50 D-Dimer 260.58 ng/mlDDU (0-234) H 12/20/20 19:27 Abnormal lab findings: Abnormal Labs 12/20/20 12/20/20 12/20/20 19:27 19:27 19:27 WBC 2.9 L RBC Plt Count 116 L Lymph % (Auto) 41.2 H Jones % (Auto) 13.2 H Seg Neuts % (Manual) Seg Neutrophils # 1.3 L Seg Neutrophils # Man Lymphocytes # (Manual) D-Dimer 260.58 H Sodium 135 L Potassium Chloride 96.1 L BUN 23 H Creatinine 1.4 H Glucose 295 H POC Glucose Hemoglobin A1c Calcium 8.3 L Ferritin AST 125 H ALT 96 H Alkaline Phosphatase 323 H Lactate Dehydrogenase C-Reactive Protein Total Protein 8.7 H Albumin 3.7 L 12/20/20 12/20/20 12/21/20 19:43 19:43 05:50 WBC RBC Plt Count Lymph % (Auto) Jones % (Auto) Seg Neuts % (Manual) Seg Neutrophils # Seg Neutrophils # Man Lymphocytes # (Manual) D-Dimer Sodium Potassium Chloride BUN Creatinine Glucose 297 H POC Glucose Hemoglobin A1c 10.3 H Calcium Ferritin 1420.0 H AST ALT Alkaline Phosphatase Lactate Dehydrogenase 491 H C-Reactive Protein 5.50 H Total Protein Albumin 12/21/20 12/21/20 12/21/20 05:50 05:50 08:04 WBC 1.6 L* RBC 3.40 L Plt Count 104 L Lymph % (Auto) Jones % (Auto) Seg Neuts % (Manual) 82.0 H Seg Neutrophils # Seg Neutrophils # Man 1.3 L Lymphocytes # (Manual) 0.3 L D-Dimer Sodium 132 L Potassium 5.7 H D Chloride 95.7 L BUN 33 H Creatinine 1.7 H Glucose 500 H POC Glucose 483 H Hemoglobin A1c Calcium 7.7 L Ferritin AST ALT Alkaline Phosphatase Lactate Dehydrogenase C-Reactive Protein Total Protein Albumin - Diagnostic Findings Chest x-ray: report reviewed, image reviewed Assessment and Plan - Patient Problems (1) Asthma Current Visit: Yes Status: Acute (2) Diabetes Current Visit: Yes Status: Acute (3) HTN (hypertension) Current Visit: Yes Status: Acute (4) Diabetic neuropathy Current Visit: Yes Status: Acute (5) HOMA (acute kidney injury) Current Visit: Yes Status: Acute (6) Acute respiratory failure with hypoxia Current Visit: Yes Status: Acute (7) Elevated liver enzymes Current Visit: Yes Status: Acute (8) Full code status Current Visit: Yes Status: Acute (9) Pneumonia due to COVID-19 virus Current Visit: Yes Status: Acute (10) SIRS (systemic inflammatory response syndrome) Current Visit: Yes Status: Acute (11) Morbid obesity Current Visit: No Status: Acute
--- NOTE | 2020-12-21 09:07 | Progress Note ---
Assessment and Plan Assessment and plan: Suspected COVID-19 infection. Acute hypoxic respiratory failure. Diabetes mellitus type 2. Morbid obesity. Elevated LFTs. DVT prophylaxis. 12/21/2020. Follow-up COVID-19 testing. Continue to trend inflammatory markers. Continue dexamethasone. ID and pulmonary consultation pending. Patient curr ently with 6 L/min O2 FiO2 44%. History Interval history: No new issues overnight. Hospitalist Physical - Constitutional Vitals: Temp Pulse Resp BP Pulse Ox 98.0 F 85 18 135/87 92 12/21/20 04:49 12/21/20 04:49 12/21/20 04:49 12/21/20 04:49 12/21/20 08:29 General appearance: Present: no acute distress, well-nourished, obese - EENT Eyes: Present: PERRL, EOM intact ENT: hearing intact, clear oral mucosa, dentition normal - Neck Neck: Present: supple, normal ROM - Respiratory Respiratory effort: normal Respiratory: bilateral: CTA - Cardiovascular Rhythm: regular Heart Sounds: Present: S1 & S2. Absent: gallop, rub - Extremities Extremities: no ischemia, No edema, Full ROM - Abdominal General gastrointestinal: soft, non-tender, non-distended, normal bowel sounds - Integumentary Integumentary: Present: clear, warm, dry - Neurologic Neurologic: CNII-XII intact, moves all extremities HEART Score - HEART Score Troponin: Troponin T < 0.010 ng/mL (0.00-0.029) 12/20/20 19:27 Results - Labs CBC & Chem 7: 12/21/20 05:50 12/21/20 05:50 Labs: Laboratory Last Values WBC 1.6 K/mm3 (4.5-11.0) L* 12/21/20 05:50 RBC 3.40 M/mm3 (3.65-5.03) L 12/21/20 05:50 Hgb 10.8 gm/dl (10.1-14.3) 12/21/20 05:50 Hct 32.7 % (30.3-42.9) D 12/21/20 05:50 MCV 96 fl (79-97) 12/21/20 05:50 MCH 32 pg (28-32) 12/21/20 05:50 MCHC 33 % (30-34) 12/21/20 05:50 RDW 14.3 % (13.2-15.2) 12/21/20 05:50 Plt Count 104 K/mm3 (140-440) L 12/21/20 05:50 Lymph % (Auto) 41.2 % (13.4-35.0) H 12/20/20 19:27 [place] % (Auto) 13.2 % (0.0-7.3) H 12/20/20 19:27 Eos % (Auto) 0.1 % (0.0-4.3) 12/20/20 19: Baso % (Auto) 0.4 % (0.0-1.8) 12/20/20 19:27 Lymph # (Auto) 1.2 K/mm3 (1.2-5.4) 12/20/20 19:27 [place] # (Auto) 0.4 K/mm3 (0.0-0.8) 12/20/20 19: Eos # (Auto) 0.0 K/mm3 (0.0-0.4) 12/20/20 19: Baso # (Auto) 0.0 K/mm3 (0.0-0.1) 12/20/20 19:27 Add Manual Diff Complete 12/21/20 05:50 Total Counted 50 12/21/20 05:50 Seg Neutrophils % 45.1 % (40.0-70.0) 12/20/20 19:27 Seg Neuts % (Manual) 82.0 % (40.0-70.0) H 12/21/20 05:50 Band Neutrophils % 2.0 % 12/21/20 05:50 Lymphocytes % (Manual) 16.0 % (13.4-35.0) 12/21/20 05:50 Nucleated RBC % Not Reportable 12/21/20 05:50 Seg Neutrophils # 1.3 K/mm3 (1.8-7.7) L 12/20/20 19:27 Seg Neutrophils # Man 1.3 K/mm3 (1.8-7.7) L 12/21/20 05:50 Band Neutrophils # 0.0 K/mm3 12/21/20 05:50 Lymphocytes # (Manual) 0.3 K/mm3 (1.2-5.4) L 12/21/20 05:50 Abs React Lymphs (Man) 0.0 K/mm3 12/21/20 05:50 Monocytes # (Manual) 0.0 K/mm3 (0.0-0.8) 12/21/20 05:50 Eosinophils # (Manual) 0.0 K/mm3 (0.0-0.4) 12/21/20 05:50 Basophils # (Manual) 0.0 K/mm3 (0.0-0.1) 12/21/20 05:50 Metamyelocytes # 0.0 K/mm3 12/21/20 05:50 Myelocytes # 0.0 K/mm3 12/21/20 05:50 Promyelocytes # 0.0 K/mm3 12/21/20 05:50 Blast Cells # 0.0 K/mm3 12/21/20 05:50 WBC Morphology Not Reportable 12/21/20 05:50 Hypersegmented Neuts Not Reportable 12/21/20 05:50 Hyposegmented Neuts Not Reportable 12/21/20 05:50 Hypogranular Neuts Not Reportable 12/21/20 05:50 Smudge Cells Not Reportable 12/21/20 05:50 Toxic Granulation Not Reportable 12/21/20 05:50 Toxic Vacuolation Not Reportable 12/21/20 05:50 Dohle Bodies Not Reportable 12/21/20 05:50 Pelger-Huet Anomaly Not Reportable 12/21/20 05:50 Jair Rods Not Reportable 12/21/20 05:50 Platelet Estimate Consistent w auto 12/21/20 05:50 Clumped Platelets Not Reportable 12/21/20 05:50 Plt Clumps, EDTA Not Reportable 12/21/20 05:50 Large Platelets Not Reportable 12/21/20 05:50 Giant Platelets Not Reportable 12/21/20 05:50 Platelet Satelliting Not Reportable 12/21/20 05:50 Plt Morphology Comment Not Reportable 12/21/20 05:50 RBC Morphology Normal 12/21/20 05:50 Dimorphic RBCs Not Reportable 12/21/20 05:50 Polychromasia Not Reportable 12/21/20 05:50 Hypochromasia Not Reportable 12/21/20 05:50 Poikilocytosis Not Reportable 12/21/20 05:50 Anisocytosis Not Reportable 12/21/20 05:50 Microcytosis Not Reportable 12/21/20 05:50 Macrocytosis Not Reportable 12/21/20 05:50 Spherocytes Not Reportable 12/21/20 05:50 Pappenheimer Bodies Not Reportable 12/21/20 05:50 Sickle Cells Not Reportable 12/21/20 05:50 Target Cells Not Reportable 12/21/20 05:50 Tear Drop Cells Not Reportable 12/21/20 05:50 Ovalocytes Not Reportable 12/21/20 05:50 Helmet Cells Not Reportable 12/21/20 05:50 [place] Bodies Not Reportable 12/21/20 05:50 Superior Rings Not Reportable 12/21/20 05:50 Peconic Cells Not Reportable 12/21/20 05:50 Bite Cells Not Reportable 12/21/20 05:50 Crenated Cell Not Reportable 12/21/20 05:50 Elliptocytes Not Reportable 12/21/20 05:50 Acanthocytes (Spur) Not Reportable 12/21/20 05:50 Rouleaux Not Reportable 12/21/20 05:50 Hemoglobin C Crystals Not Reportable 12/21/20 05:50 Schistocytes Not Reportable 12/21/20 05:50 Malaria parasites Not Reportable 12/21/20 05:50 Giorgi Bodies Not Reportable 12/21/20 05:50 Hem Pathologist Commnt No 12/21/20 05:50 PT 13.1 Sec. (12.2-14.9) 12/21/20 05:50 INR 1.01 (0.87-1.13) 12/21/20 05:50 D-Dimer 260.58 ng/mlDDU (0-234) H 12/20/20 19:27 Sodium 132 mmol/L (137-145) L 12/21/20 05:50 Potassium 5.7 mmol/L (3.6-5.0) H D 12/21/20 05:50 Chloride 95.7 mmol/L (98-107) L 12/21/20 05:50 Carbon Dioxide 27 mmol/L (22-30) 12/21/20 05:50 Anion Gap 15 mmol/L 12/21/20 05:50 BUN 33 mg/dL (7-17) H 12/21/20 05:50 Creatinine 1.7 mg/dL (0.6-1.2) H 12/21/20 05:50 Estimated GFR 38 ml/min 12/21/20 05:50 BUN/Creatinine Ratio 19 % 12/21/20 05:50 Glucose 500 mg/dL (65-100) H 12/21/20 05:50 POC Glucose 483 mg/dL (70-105) H 12/21/20 08:04 Hemoglobin A1c 10.3 % (4-6) H 12/21/20 05:50 Lactic Acid 1.40 mmol/L (0.7-2.0) 12/21/20 05:50 Calcium 7.7 mg/dL (8.4-10.2) L 12/21/20 05:50 Ferritin 1420.0 ng/mL (10.0-200.0) H 12/20/20 19:43 Total Bilirubin 0.90 mg/dL (0.1-1.2) 12/20/20 19:27 AST 125 units/L (5-40) H 12/20/20 19:27 ALT 96 units/L (7-56) H 12/20/20 19:27 Alkaline Phosphatase 323 units/L (35-129) H 12/20/20 19:27 Lactate Dehydrogenase 491 units/L (91-180) H 12/20/20 19:43 Troponin T < 0.010 ng/mL (0.00-0.029) 12/20/20 19:27 C-Reactive Protein 5.50 mg/dL (0.00-1.30) H 12/20/20 19:43 Total Protein 8.7 g/dL (6.3-8.2) H 12/20/20 19:27 Albumin 3.7 g/dL (3.9-5) L 12/20/20 19:27 Albumin/Globulin Ratio 0.7 % 12/20/20 19:27 Microbiology: Microbiology 12/20/20 19:27 Peripheral/Venous Blood Culture - Preliminary Culture in Progress 12/20/20 19:43 Peripheral/Venous Blood Culture - Preliminary Culture in Progress Curtis/IV: Voiding Method Toilet Active Medications - Current Medications Current Medications: Generic Name Dose Route Start Last Admin Trade Name Freq PRN Reason Stop Dose Admin Acetaminophen 650 mg 12/20/20 23:15 12/20/20 23:41 Acetaminophen 325 Mg Tab PO 650 mg Q4H PRN Administration Pain MILD(1-3)/Fever >100.5/VARGAS Dexamethasone 6 mg 12/21/20 10:00 Dexamethasone 4 Mg/Ml Vial IV Q24HR [facility] Dextrose 50 ml 12/20/20 23:15 Dextrose 50% In Water (25gm) 50 Ml Syringe IV Q30MIN PRN Hypoglycemia Protocol Enoxaparin Sodium 40 mg 12/21/20 22:00 Enoxaparin 40 Mg/0.4 Ml Inj SUB-Q QDAY@2200 [facility] Protocol Glipizide 10 mg 12/21/20 10:00 Glipizide 10 Mg Tab PO BIDDIAB [facility] Ceftriaxone Sodium 2 gm in 100 mls @ 200 mls/hr 12/21/20 21:00 Rocephin/Ns 2 Gm/100 Ml IV Q24H [facility] Protocol Azithromycin 500 mg in 250 mls @ 250 mls/hr 12/21/20 22:00 Zithromax/Ns IV Q24H [facility] Protocol Insulin Human Lispro 0 unit 12/21/20 07:30 12/21/20 07:30 Insulin Lispro 100 Unit/Ml SUB-Q 8 unit ACHS [facility] Administration Protocol Magnesium Hydroxide 30 ml 12/20/20 23:15 Magnesium Hydroxide (Mom) Oral Liqd Udc PO Q4H PRN Constipation Metformin HCl 1,000 mg 12/21/20 10:00 Metformin 500 Mg Tab PO BIDDIAB [facility] Morphine Sulfate 2 mg 12/20/20 23:15 12/21/20 01:06 Morphine 2 Mg/1 Ml Inj IV 2 mg Q4H PRN Administration Pain, Moderate (4-6) Ondansetron HCl 4 mg 12/20/20 23:15 Ondansetron 4 Mg/2 Ml Inj IV Q8H PRN Nausea And Vomiting Sodium Chloride 10 ml 12/21/20 10:00 Sodium Chloride 0.9% 10 Ml Flush Syringe IV BID [facility] Sodium Chloride 10 ml 12/20/20 23:15 Sodium Chloride 0.9% 10 Ml Flush Syringe IV PRN PRN LINE FLUSH
[2020-12-21] MEDS ORDERED: metFORMIN 500 MG TAB PO SCH (10:00)
[2020-12-21] MEDS: glipiZIDE 10 MG TAB PO SCH ×2 (10:17→16:42)
[2020-12-21] MEDS: dexAMETHasone 4 MG/ML VIAL IV SCH (10:17)
[2020-12-21] MEDS: ACETAMINOPHEN 325 MG TAB PO PRN (10:33)
[2020-12-21 11:00] LABS: Bilirubin,Urine NEG (Negative); Blood,Urine NEG (Negative); Color,Urine Amber (Yellow); Mucus,Urine FEW /HPF
[2020-12-21 11:03] LABS: Protein,Urine >500 mg/dL (Negative)
[2020-12-21] MEDS ORDERED: INSULIN REGULAR, HUMAN 100 UNITS/1 ML IV SCH (11:30)
[2020-12-21] MEDS ORDERED: SODIUM POLYSTYRENE 15 GM/60 ML ORAL LIQD PO SCH (11:30)
[2020-12-21] MEDS ORDERED: FLU VACC QUAD 2020-2021 (6 months +)/PF 60 0.5 ML SYRINGE IM ONE (12:00)
[2020-12-21] MEDS ORDERED: ALBUTEROL 2.5 MG/3 ML NEBU IH PRN (12:00)
[2020-12-21] MEDS: SODIUM CHLORIDE 0.9% 1000 ML 1,000 ML IV SCH (12:00)
--- NOTE | 2020-12-21 12:24 | Consultation ---
History of Present Illness - Reason for Consult Consult date: 12/21/20 acute renal failure, hyperkalemia - History of Present Illness The patient is a 55 YO female with known history of Morbid Obesity, Asthma, Diabetes mellitus type 2 and ?HTN who presented to [facility] ED 12/20 with complain of worsening shortness of breath, cough, fever and chills which has been ongoing for about 1 week. Patient also reports associated generalized body aches and pain. She denies any recent travel, sick contact ot contact with anyone with COVID-19. Tasneem has not received any COVID-19 vaccine. She denies any nausea, vomiting, diarrhea, abd pain, dsyuria, hematuria, chest pain, diarrhea, loss of taste / smell, leg swelling, dizziness ot syncope. Upon arrival to the emergency room her O2 saturation was about 58% on room air. Patient was placed on 4 L of oxygen with significant improvement in oxygen saturation. She had a fever of about 100.6 F. CXR revealed mild patchy parenchyma opacities bilate rally, pulmonary edema vs pneumonia. Labs significant for wbc 1.6, Creat 1.7, BUN 33, K 5.7 and Glu 500. Nephrology was consulted for further evaluation. Past History Past Medical History: diabetes, hypertension, other (Asthma,Diabetic Neuropathy,) Past Surgical History: hysterectomy, Other (Left Wrist surgery 11/2014) Social history: no significant social history Family history: no significant family history Medications and Allergies Allergies Allergy/AdvReac Type Severity Reaction Status Date / Time No Known Allergies Allergy Verified 12/29/14 22:38 Home Medications Medication Instructions Recorded Confirmed Last Taken Type Cyclobenzaprine [Flexeril 10 MG 10 mg PO QHS PRN 12/21/20 12/21/20 Unknown History TAB] Gabapentin [Neurontin] 800 mg PO TID 12/21/20 12/21/20 12/20/20 History metFORMIN [Glucophage] 1,000 mg PO BID 12/21/20 12/21/20 12/20/20 History traMADoL [Ultram 50 MG tab] 50 mg PO BID PRN MDD 100 12/21/20 12/21/20 Unknown History Active Meds: Active Medications Acetaminophen (Acetaminophen 325 Mg Tab) 650 mg PO Q4H PRN PRN Reason: Pain MILD(1-3)/Fever >100.5/VARGAS Last Admin: 12/21/20 10:33 Dose: 650 mg Documented by: Albuterol (Albuterol 2.5 Mg/3 Ml Nebu) 2.5 mg IH Q4HRT PRN PRN Reason: Shortness Of Breath Dexamethasone (Dexamethasone 4 Mg/Ml Vial) 6 mg IV Q24HR [facility] Last Admin: 12/21/20 10:17 Dose: 6 mg Documented by: Dextrose (Dextrose 50% In Water (25gm) 50 Ml Syringe) 50 ml IV Q30MIN PRN; Protocol PRN Reason: Hypoglycemia Enoxaparin Sodium (Enoxaparin 40 Mg/0.4 Ml Inj) 40 mg SUB-Q QDAY@2200 [facility]; Prot ocol Glipizide (Glipizide 10 Mg Tab) 10 mg PO BIDDIAB [facility] Last Admin: 12/21/20 10:17 Dose: 10 mg Documented by: Ceftriaxone Sodium (Rocephin/Ns 2 Gm/100 Ml) 2 gm in 100 mls @ 200 mls/hr IV Q24H [facility]; Protocol Azithromycin (Zithromax/Ns) 500 mg in 250 mls @ 250 mls/hr IV Q24H [facility]; Protocol Sodium Chloride (Nacl 0.9% 1000 Ml) 1,000 mls @ 75 mls/hr IV DIRECT [facility] Insulin Human Lispro (Insulin Lispro 100 Unit/Ml) 0 unit SUB-Q ACHS [facility]; Protocol Last Admin: 12/21/20 07:30 Dose: 8 unit Documented by: Insulin Human Regular (Insulin Regular, Human 100 Units/1 Ml) 10 units IV ONCE [facility] Stop: 12/21/20 13:30 Magnesium Hydroxide (Magnesium Hydroxide (Mom) Oral Liqd Udc) 30 ml PO Q4H PRN PRN Reason: Constipation Morphine Sulfate (Morphine 2 Mg/1 Ml Inj) 2 mg IV Q4H PRN PRN Reason: Pain, Moderate (4-6) Last Admin: 12/21/20 01:06 Dose: 2 mg Documented by: Ondansetron HCl (Ondansetron 4 Mg/2 Ml Inj) 4 mg IV Q8H PRN PRN Reason: Nausea And Vomiting Sodium Chloride (Sodium Chloride 0.9% 10 Ml Flush Syringe) 10 ml IV BID [facility] Last Admin: 12/21/20 10:33 Dose: 10 ml Documented by: Sodium Chloride (Sodium Chloride 0.9% 10 Ml Flush Syringe) 10 ml IV PRN PRN PRN Reason: LINE FLUSH Sodium Polystyrene Sulfonate (Sodium Polystyrene 15 Gm/60 Ml Oral Liqd) 30 gm PO ONCE [facility] Stop: 12/21/20 16:30 Review of Systems Constitutional: fever, chills, no weight loss, no weight gain, no anorexia, no fatigue, no weakness, no poor appetite Breasts: deferred Cardiovascular: shortness of breath, dyspnea on exertion, no chest pain, no palpitations, no edema, no syncope, no lightheadedness Respiratory: cough, cough with sputum, shortness of breath, dyspnea on exertion, no hemoptysis, no home oxygen Gastrointestinal: no abdominal pain, no nausea, no vomiting, no diarrhea, no melena Genitourinary Female: no dysuria, no hematuria Musculoskeletal: no muscle cramps Integumentary: no jaundice Neurological: no convulsions, no aphasia, no change in speech, no change in mentation, no confusion Exam - Vital Signs Vital signs: Vital Signs Temp Pulse Resp BP 100.6 F H 107 H 20 105/53 12/20/20 19:16 12/20/20 19:16 12/20/20 19:16 12/20/20 19:16 Results - Lab Results 12/21/20 05:50 12/21/20 18:24 Most recent lab results Calcium 7.7 mg/dL (8.4-10.2) L 12/21/20 05:50 Assessment and Plan 1. Acute kidney injury: HOMA in the setting of vasomotor insult vs Covid infection. Urine studies and Renal US ordered. Monitor renal function. On IV fluids. Avoid nephrotoxic agents. Meds dosage based on GFR. 2. FEN: Hyperkalemia, meds ordered, monitor. Monitor volume status and lytes. 3. Covid infection: Isolation, follow inflammatory markers. Followed by ID. 4. Acute on chronic hypoxemic respiratory failure, POA: 2/2 COVID infection. CXR showed mild patchy parenchymal opacities bilaterally. Patient is on NC oxygen. 5. DM type 2: SSI. Monitor bl sugar. 6. HTN: Monitor BP. Adjust meds as needed. 7. Leukopenia: Monitor. 8. Elevated Transaminases: Trend. Subjective: Patient was seen and examined at the bedside. Doing ok. Objective: General appearance: well-developed, appears stated age, morbidly obese, not in distress, NC O2 HEENT: ATNC, JENNIFER Neck: trachea midline Respiratory: diminished breath sounds at bases Heart: regular, S1S2, no murmur Gastrointestinal: soft, normoactive bowel sounds, not tender Integumentary: no obvious rash Ext: no edema Neurologic: AO, able to move extremities
--- NOTE | 2020-12-21 12:54 | Gastroenterology Consultation ---
History of Present Illness - Reason for Consult Consult date: 12/21/20 elevated liver enzymes Requesting physician: SAMI SANCHEZ - History of Present Illness This is a 55 yo female with pmh of asthma, DM and obesity admitted for shortness of breathing, cough, fever, myalgia x 1 week. Being evaluated for possible COVID-19. CXR showed pneumonia. Labs showed elevated liver enzymes and leukopenia. Patient states she was told she had elevated liver enzymes for a while but did not get a full work up done due to lack of insurance. No alcohol use. Denies nausea/vomiting, diarrhea. States bodyache with pain all over. Medication list reviewed. Past History Past Medical History: diabetes, hypertension, other (Asthma,Diabetic Neuropathy,) Past Surgical History: hysterectomy, Other (Left Wrist surgery 11/2014) Social history: no significant social history Family history: no significant family history Medications and Allergies Allergies Allergy/AdvReac Type Severity Reaction Status Date / Time No Known Allergies Allergy Verified 12/29/14 22:38 Home Medications Medication Instructions Recorded Confirmed Last Taken Type Cyclobenzaprine [Flexeril 10 MG 10 mg PO QHS PRN 12/21/20 12/21/20 Unknown History TAB] Gabapentin [Neurontin] 800 mg PO TID 12/21/20 12/21/20 12/20/20 History metFORMIN [Glucophage] 1,000 mg PO BID 12/21/20 12/21/20 12/20/20 History traMADoL [Ultram 50 MG tab] 50 mg PO BID PRN MDD 100 12/21/20 12/21/20 Unknown History Active Meds: Active Medications Acetaminophen (Acetaminophen 325 Mg Tab) 650 mg PO Q4H PRN PRN Reason: Pain MILD(1-3)/Fever >100.5/VARGAS Last Admin: 12/21/20 10:33 Dose: 650 mg Documented by: Albuterol (Albuterol 2.5 Mg/3 Ml Nebu) 2.5 mg IH Q4HRT PRN PRN Reason: Shortness Of Breath Dexamethasone (Dexamethasone 4 Mg/Ml Vial) 6 mg IV Q24HR [facility] Last Admin: 12/21/20 10:17 Dose: 6 mg Documented by: Dextrose (Dextrose 50% In Water (25gm) 50 Ml Syringe) 50 ml IV Q30MIN PRN; Protocol PRN Reason: Hypoglycemia Enoxaparin Sodium (Enoxaparin 40 Mg/0.4 Ml Inj) 40 mg SUB-Q QDAY@2200 [facility]; Protocol Glipizide (Glipizide 10 Mg Tab) 10 mg PO BIDDIAB [facility] Last Admin: 12/21/20 10:17 Dose: 10 mg Documented by: Ceftriaxone Sodium (Rocephin/Ns 2 Gm/100 Ml) 2 gm in 100 mls @ 200 mls/hr IV Q24H [facility]; Protocol Azithromycin (Zithromax/Ns) 500 mg in 250 mls @ 250 mls/hr IV Q24H [facility]; Protocol Sodium Chloride (Nacl 0.9% 1000 Ml) 1,000 mls @ 75 mls/hr IV DIRECT [facility] Insulin Human Lispro (Insulin Lispro 100 Unit/Ml) 0 unit SUB-Q ACHS [facility]; Protocol Last Admin: 12/21/20 07:30 Dose: 8 unit Documented by: Insulin Human Regular (Insulin Regular, Human 100 Units/1 Ml) 10 units IV ONCE [facility] Stop: 12/21/20 13:30 Magnesium Hydroxide (Magnesium Hydroxide (Mom) Oral Liqd Ud) 30 ml PO Q4H PRN PRN Reason: Constipation Morphine Sulfate (Morphine 2 Mg/1 Ml Inj) 2 mg IV Q4H PRN PRN Reason: Pain, Moderate (4-6) Last Admin: 12/21/20 01:06 Dose: 2 mg Documented by: Ondansetron HCl (Ondansetron 4 Mg/2 Ml Inj) 4 mg IV Q8H PRN PRN Reason: Nausea And Vomiting Sodium Chloride (Sodium Chloride 0.9% 10 Ml Flush Syringe) 10 ml IV BID [facility] Last Admin: 12/21/20 10:33 Dose: 10 ml Documented by: Sodium Chloride (Sodium Chloride 0.9% 10 Ml Flush Syringe) 10 ml IV PRN PRN PRN Reason: LINE FLUSH Sodium Polystyrene Sulfonate (Sodium Polystyrene 15 Gm/60 Ml Oral Liqd) 30 gm PO ONCE [facility] Stop: 12/21/20 16:30 Review of Systems - Review of Systems All systems: negative Constitutional: fever, chills, fatigue, weakness, no weight loss, no weight gain Ears, Nose, Throat: no deferred, no decreased hearing Cardiovascular: no chest pain Respiratory: cough, shortness of breath Gastrointestinal: no abdominal pain, no nausea, no vomiting, no diarrhea, no constipation Musculoskeletal: no gait dysfunction Neurological: weakness Psychiatric: no anxiety, no memory loss Hematologic/Lymphatic: no easy bruising Allergic/Immunologic: wheezing Exam - Constitutional Vital Signs: Temp Pulse Resp BP Pulse Ox 98.0 F 85 18 135/87 93 12/21/20 04:49 12/21/20 04:49 12/21/20 04:49 12/21/20 04:49 12/21/20 10:37 General appearance: no acute distress - EENT Eyes: EOM intact ENT: hearing intact - Respiratory Respiratory effort: normal - Cardiovascular Rhythm: regular Heart Sounds: Present: S1 & S2 - Gastrointestinal General gastrointestinal: Present: soft, non-tender, non-distended - Neurologic Neurological: alert and oriented x3 - Psychiatric Psychiatric: appropriate mood/affect - Labs CBC & Chem 7: 12/21/20 05:50 12/21/20 05:50 Lab Results: Laboratory Results - last 24 hr 12/20/20 12/20/20 12/20/20 19:27 19:27 19:27 WBC 2.9 L RBC 4.08 Hgb 13.1 Hct 39.5 MCV 97 MCH 32 MCHC 33 RDW 14.4 Plt Count 116 L Lymph % (Auto) 41.2 H [place] % (Auto) 13.2 H Eos % (Auto) 0.1 Baso % (Auto) 0.4 Lymph # (Auto) 1.2 [place]ole # (Auto) 0.4 Eos # (Auto) 0.0 Baso # (Auto) 0.0 Add Manual Diff Total Counted Seg Neutrophils % 45.1 Seg Neuts % (Manual) Band Neutrophils % Lymphocytes % (Manual) Nucleated RBC % Seg Neutrophils # 1.3 L Seg Neutrophils # Man Band Neutrophils # Lymphocytes # (Manual) Abs React Lymphs (Man) Monocytes # (Manual) Eosinophils # (Manual) Basophils # (Manual) Metamyelocytes # Myelocytes # Promyelocytes # Blast Cells # WBC Morphology Hypersegmented Neuts Hyposegmented Neuts Hypogranular Neuts Smudge Cells Toxic Granulation Toxic Vacuolation Dohle Bodies Pelger-Huet Anomaly Jair Rods Platelet Estimate Clumped Platelets Plt Clumps, EDTA Large Platelets Giant Platelets Platelet Satelliting Plt Morphology Comment RBC Morphology Dimorphic RBCs Polychromasia Hypochromasia Poikilocytosis Anisocytosis Microcytosis Macrocytosis Spherocytes Pappenheimer Bodies Sickle Cells Target Cells Tear Drop Cells Ovalocytes Helmet Cells [place] Bodies Eads Rings Ale Cells Bite Cells Crenated Cell Elliptocytes Acanthocytes (Spur) Rouleaux Hemoglobin C Crystals Schistocytes Malaria parasites Giorgi Bodies Hem Pathologist Commnt PT INR D-Dimer Sodium 135 L Potassium 4.7 Chloride 96.1 L Carbon Dioxide 26 Anion Gap 18 BUN 23 H Creatinine 1.4 H Estimated GFR 47 BUN/Creatinine Ratio 16 Glucose 295 H POC Glucose Hemoglobin A1c Lactic Acid 1.70 Calcium 8.3 L Ferritin Total Bilirubin 0.90 AST 125 H ALT 96 H Alkaline Phosphatase 323 H Lactate Dehydrogenase Troponin T < 0.010 C-Reactive Protein Total Protein 8.7 H Albumin 3.7 L Albumin/Globulin Ratio 0.7 Procalcitonin Urine Color Urine Turbidity Urine pH Ur Specific [place] Urine Protein Urine Glucose (UA) Urine Ketones Urine Blood Urine Nitrite Urine Bilirubin Urine Urobilinogen Ur Leukocyte Esterase Urine WBC (Auto) Urine RBC (Auto) U Epithel Cells (Auto) Urine Mucus 12/20/20 12/20/20 12/20/20 19:27 19:43 19:43 WBC RBC Hgb Hct MCV MCH MCHC RDW Plt Count Lymph % (Auto) [place] % (Auto) Eos % (Auto) Baso % (Auto) Lymph # (Auto) [place] # (Auto) Eos # (Auto) Baso # (Auto) Add Manual Diff Total Counted Seg Neutrophils % Seg Neuts % (Manual) Band Neutrophils % Lymphocytes % (Manual) Nucleated RBC % Seg Neutrophils # Seg Neutrophils # Man Band Neutrophils # Lymphocytes # (Manual) Abs React Lymphs (Man) Monocytes # (Manual) Eosinophils # (Manual) Basophils # (Manual) Metamyelocytes # Myelocytes # Promyelocytes # Blast Cells # WBC Morphology Hypersegmented Neuts Hyposegmented Neuts Hypogranular Neuts Smudge Cells Toxic Granulation Toxic Vacuolation Dohle Bodies Pelger-Huet Anomaly Jair Rods Platelet Estimate Clumped Platelets Plt Clumps, EDTA Large Platelets Giant Platelets Platelet Satelliting Plt Morphology Comment RBC Morphology Dimorphic RBCs Polychromasia Hypochromasia Poikilocytosis Anisocytosis Microcytosis Macrocytosis Spherocytes Pappenheimer Bodies Sickle Cells Target Cells Tear Drop Cells Ovalocytes Helmet Cells [place] Bodies Eads Rings Ale Cells Bite Cells Crenated Cell Elliptocytes Acanthocytes (Spur) Rouleaux Hemoglobin C Crystals Schistocytes Malaria parasites Giorgi Bodies Hem Pathologist Commnt PT INR D-Dimer 260.58 H Sodium Potassium Chloride Carbon Dioxide Anion Gap BUN Creatinine Estimated GFR BUN/Creatinine Ratio Glucose 297 H POC Glucose Hemoglobin A1c Lactic Acid Calcium Ferritin 1420.0 H Total Bilirubin AST ALT Alkaline Phosphatase Lactate Dehydrogenase 491 H Troponin T C-Reactive Protein 5.50 H Total Protein Albumin Albumin/Globulin Ratio Procalcitonin Urine Color Urine Turbidity Urine pH Ur Specific [place] Urine Protein Urine Glucose (UA) Urine Ketones Urine Blood Urine Nitrite Urine Bilirubin Urine Urobilinogen Ur Leukocyte Esterase Urine WBC (Auto) Urine RBC (Auto) U Epithel Cells (Auto) Urine Mucus 12/20/20 12/21/20 12/21/20 19:43 05:50 05:50 WBC RBC Hgb Hct MCV MCH MCHC RDW Plt Count Lymph % (Auto) [place] % (Auto) Eos % (Auto) Baso % (Auto) Lymph # (Auto) [place] # (Auto) Eos # (Auto) Baso # (Auto) Add Manual Diff Total Counted Seg Neutrophils % Seg Neuts % (Manual) Band Neutrophils % Lymphocytes % (Manual) Nucleated RBC % Seg Neutrophils # Seg Neutrophils # Man Band Neutrophils # Lymphocytes # (Manual) Abs React Lymphs (Man) Monocytes # (Manual) Eosinophils # (Manual) Basophils # (Manual) Metamyelocytes # Myelocytes # Promyelocytes # Blast Cells # WBC Morphology Hypersegmented Neuts Hyposegmented Neuts Hypogranular Neuts Smudge Cells Toxic Granulation Toxic Vacuolation Dohle Bodies Pelger-Huet Anomaly Jair Rods Platelet Estimate Clumped Platelets Plt Clumps, EDTA Large Platelets Giant Platelets Platelet Satelliting Plt Morphology Comment RBC Morphology Dimorphic RBCs Polychromasia Hypochromasia Poikilocytosis Anisocytosis Microcytosis Macrocytosis Spherocytes Pappenheimer Bodies Sickle Cells Target Cells Tear Drop Cells Ovalocytes Helmet Cells [place] Bodies Eads Rings [place] Cells Bite Cells Crenated Cell Elliptocytes Acanthocytes (Spur) Rouleaux Hemoglobin C Crystals Schistocytes Malaria parasites Giorgi Bodies Hem Pathologist Commnt PT INR D-Dimer Sodium Potassium Chloride Carbon Dioxide Anion Gap BUN Creatinine Estimated GFR BUN/Creatinine Ratio Glucose POC Glucose Hemoglobin A1c 10.3 H Lactic Acid 1.40 Calcium Ferritin Total Bilirubin AST ALT Alkaline Phosphatase Lactate Dehydrogenase Troponin T C-Reactive Protein Total Protein Albumin Albumin/Globulin Ratio Procalcitonin 0.32 Urine Color Urine Turbidity Urine pH Ur Specific [place] Urine Protein Urine Glucose (UA) Urine Ketones Urine Blood Urine Nitrite Urine Bilirubin Urine Urobilinogen Ur Leukocyte Esterase Urine WBC (Auto) Urine RBC (Auto) U Epithel Cells (Auto) Urine Mucus 12/21/20 12/21/20 12/21/20 05:50 05:50 05:50 WBC 1.6 L* RBC 3.40 L Hgb 10.8 Hct 32.7 D MCV 96 MCH 32 MCHC 33 RDW 14.3 Plt Count 104 L Lymph % (Auto) [place] % (Auto) Eos % (Auto) Baso % (Auto) Lymph # (Auto) [place] # (Auto) Eos # (Auto) Baso # (Auto) Add Manual Diff Complete Total Counted 50 Seg Neutrophils % Seg Neuts % (Manual) 82.0 H Band Neutrophils % 2.0 Lymphocytes % (Manual) 16.0 Nucleated RBC % Not Reportable Seg Neutrophils # Seg Neutrophils # Man 1.3 L Band Neutrophils # 0.0 Lymphocytes # (Manual) 0.3 L Abs React Lymphs (Man) 0.0 Monocytes # (Manual) 0.0 Eosinophils # (Manual) 0.0 Basophils # (Manual) 0.0 Metamyelocytes # 0.0 Myelocytes # 0.0 Promyelocytes # 0.0 Blast Cells # 0.0 WBC Morphology Not Reportable Hypersegmented Neuts Not Reportable Hyposegmented Neuts Not Reportable Hypogranular Neuts Not Reportable Smudge Cells Not Reportable Toxic Granulation Not Reportable Toxic Vacuolation Not Reportable Dohle Bodies Not Reportable Pelger-Huet Anomaly Not Reportable Jair Rods Not Reportable Platelet Estimate Consistent w auto Clumped Platelets Not Reportable Plt Clumps, EDTA Not Reportable Large Platelets Not Reportable Giant Platelets Not Reportable Platelet Satelliting Not Reportable Plt Morphology Comment Not Reportable RBC Morphology Normal Dimorphic RBCs Not Reportable Polychromasia Not Reportable Hypochromasia Not Reportable Poikilocytosis Not Reportable Anisocytosis Not Reportable Microcytosis Not Reportable Macrocytosis Not Reportable Spherocytes Not Reportable Pappenheimer Bodies Not Reportable Sickle Cells Not Reportable Target Cells Not Reportable Tear Drop Cells Not Reportable Ovalocytes Not Reportable Helmet Cells Not Reportable [place] Bodies Not Reportable Eads Rings Not Reportable [place] Cells Not Reportable Bite Cells Not Reportable Crenated Cell Not Reportable Elliptocytes Not Reportable Acanthocytes (Spur) Not Reportable Rouleaux Not Reportable Hemoglobin C Crystals Not Reportable Schistocytes Not Reportable Malaria parasites Not Reportable Giorgi Bodies Not Reportable Hem Pathologist Commnt No PT 13.1 INR 1.01 D-Dimer Sodium 132 L Potassium 5.7 H D Chloride 95.7 L Carbon Dioxide 27 Anion Gap 15 BUN 33 H Creatinine 1.7 H Estimated GFR 38 BUN/Creatinine Ratio 19 Glucose 500 H POC Glucose Hemoglobin A1c Lactic Acid Calcium 7.7 L Ferritin Total Bilirubin AST ALT Alkaline Phosphatase Lactate Dehydrogenase Troponin T C-Reactive Protein Total Protein Albumin Albumin/Globulin Ratio Procalcitonin Urine Color Urine Turbidity Urine pH Ur Specific [place] Urine Protein Urine Glucose (UA) Urine Ketones Urine Blood Urine Nitrite Urine Bilirubin Urine Urobilinogen Ur Leukocyte Esterase Urine WBC (Auto) Urine RBC (Auto) U Epithel Cells (Auto) Urine Mucus 12/21/20 12/21/20 12/21/20 08:04 10:28 12:05 WBC RBC Hgb Hct MCV MCH MCHC RDW Plt Count Lymph % (Auto) [place] % (Auto) Eos % (Auto) Baso % (Auto) Lymph # (Auto) [place] # (Auto) Eos # (Auto) Baso # (Auto) Add Manual Diff Total Counted Seg Neutrophils % Seg Neuts % (Manual) Band Neutrophils % Lymphocytes % (Manual) Nucleated RBC % Seg Neutrophils # Seg Neutrophils # Man Band Neutrophils # Lymphocytes # (Manual) Abs React Lymphs (Man) Monocytes # (Manual) Eosinophils # (Manual) Basophils # (Manual) Metamyelocytes # Myelocytes # Promyelocytes # Blast Cells # WBC Morphology Hypersegmented Neuts Hyposegmented Neuts Hypogranular Neuts Smudge Cells Toxic Granulation Toxic Vacuolation Dohle Bodies Pelger-Huet Anomaly Jair Rods Platelet Estimate Clumped Platelets Plt Clumps, EDTA Large Platelets Giant Platelets Platelet Satelliting Plt Morphology Comment RBC Morphology Dimorphic RBCs Polychromasia Hypochromasia Poikilocytosis Anisocytosis Microcytosis Macrocytosis Spherocytes Pappenheimer Bodies Sickle Cells Target Cells Tear Drop Cells Ovalocytes Helmet Cells [place] Bodies Eads Rings Ale Cells Bite Cells Crenated Cell Elliptocytes Acanthocytes (Spur) Rouleaux Hemoglobin C Crystals Schistocytes Malaria parasites Giorgi Bodies Hem Pathologist Commnt PT INR D-Dimer Sodium Potassium Chloride Carbon Dioxide Anion Gap BUN Creatinine Estimated GFR BUN/Creatinine Ratio Glucose POC Glucose 483 H 482 H Hemoglobin A1c Lactic Acid Calcium Ferritin Total Bilirubin AST ALT Alkaline Phosphatase Lactate Dehydrogenase Troponin T C-Reactive Protein Total Protein Albumin Albumin/Globulin Ratio Procalcitonin Urine Color Debra Urine Turbidity Hazy Urine pH 5.0 Ur Specific [place] 1.018 Urine Protein >500 Urine Glucose (UA) >=500 Urine Ketones Neg Urine Blood Neg Urine Nitrite Neg Urine Bilirubin Neg Urine Urobilinogen 2.0 Ur Leukocyte Esterase Neg Urine WBC (Auto) 2.0 Urine RBC (Auto) 2.0 U Epithel Cells (Auto) 2.0 Urine Mucus Few Assessment and Plan - Patient Problems (1) Elevated liver enzymes Current Visit: Yes Status: Acute Plan to address problem: # Elevated liver enzymes - AST 125, ALT 96, Alk phos 323 - no known baseline values. - INR at 1 - suspect 2/2 viral illness, sepsis, possible COVID-19 and possible underlying fatty liver given risk factors with DM and obesity Rec - recommend checking acute viral hepatitis panel - trend CMP - recommend RUQ US - supportive care and treatment for pneumonia and sepsis per primary team
--- NOTE | 2020-12-21 16:21 | Consultation ---
History of Present Illness - Reason for Consult Consult date: 12/21/20 - History of Present Illness 55-year-old female with history, diabetes mellitus, morbid obesity, admitted on 12/20/2020 secondary to a week history of cough, generalized malaise, fever, chills, progressive shortness of breath. Patient with COVID-19. Patient leg at home with her son. Patient did not receive COVID-19 vaccine. On arrival, temperature 100.6, HR 107, RR 20, O2 sat 97%, BP 105/53. O2 sat dropped to 58% on room air. Patient placed on 4 L nasal cannula. Patient currently on high flow nasal cannula 75%, 15 L. Initial WBC 2.9. Platelets 116. D-dimer 260. Ferritin 1420. LDH 491. CRP 5.5. Procalcitonin 0.03. Creatinine 1.4. AST 125. ALT 96. Chest x-ray with bilateral patchy parenchymal opacities. Review of Systems: positive in bold print General: fever, chills, malaise Cutaneous: rash, pruritus Head: headaches or injury Eyes: changes in vision, eye pain, double vision Ears: ear pain, ear discharge, ringing or hearing loss Nose: nose bleeding, stuffiness Mouth & throat: bleeding gums, horseness, no dental problems, or swollen glands Neck: no pain, node enlargement/lumps, tyroid enlargement or tenderness Respiratory: SOB, cough, GOETZ, wheezing, sputum, hemoptysis, pleuritic chest pain Cardiovascular: chest pain, leg edema, cyanosis, GOETZ, orthopnea Musculoskeletal: edema, deformities, pain Gastrointestinal: nausea, vomiting, hematemesis, diarrhea, constipation, melena, bright red blood in stools, fecal incontinence, jaundice Genitourinary/Reproductive: frequent urination, dysuria, hematuria, incontinence Neurogical: seizures, headaches, weakness, paresthesias, loss of speech or vision; memory loss, vertigo, tremors, numbness Psychiatric: stable mood; excessive anxiety, sadness or moodiness Past History Past Medical History: diabetes, hypertension, other (Asthma,Diabetic Neuropathy,) Past Surgical History: hysterectomy, Other (Left Wrist surgery 11/2014) Social history: no significant social history Family history: no significant family history Medications and Allergies Allergies Allergy/AdvReac Type Severity Reaction Status Date / Time No Known Allergies Allergy Verified 12/29/14 22:38 Home Medications Medication Instructions Recorded Confirmed Last Taken Type Cyclobenzaprine [Flexeril 10 MG 10 mg PO QHS PRN 12/21/20 12/21/20 Unknown History TAB] Gabapentin [Neurontin] 800 mg PO TID 12/21/20 12/21/20 12/20/20 History metFORMIN [Glucophage] 1,000 mg PO BID 12/21/20 12/21/20 12/20/20 History traMADoL [Ultram 50 MG tab] 50 mg PO BID PRN MDD 100 12/21/20 12/21/20 Unknown History Active Meds: Active Medications Acetaminophen (Acetaminophen 325 Mg Tab) 650 mg PO Q4H PRN PRN Reason: Pain MILD(1-3)/Fever >100.5/VARGAS Last Admin: 12/21/20 10:33 Dose: 650 mg Documented by: Albuterol (Albuterol 2.5 Mg/3 Ml Nebu) 2.5 mg IH Q4HRT PRN PRN Reason: Shortness Of Breath Dexamethasone (Dexamethasone 4 Mg/Ml Vial) 6 mg IV Q24HR TAMEKA Last Admin: 12/21/20 10:17 Dose: 6 mg Documented by: Dextrose (Dextrose 50% In Water (25gm) 50 Ml Syringe) 50 ml IV Q30MIN PRN; Protocol PRN Reason: Hypoglycemia Enoxaparin Sodium (Enoxaparin 40 Mg/0.4 Ml Inj) 40 mg SUB-Q QDAY@2200 TAMEKA; Protocol Gabapentin (Gabapentin 400 Mg Cap) 800 mg PO BID TAMEKA Glipizide (Glipizide 10 Mg Tab) 10 mg PO BIDDIAB [facility] Last Admin: 12/21/20 10:17 Dose: 10 mg Documented by: Guaifenesin (Guaifenesin 100 Mg/5 Ml Oral Liqd) 200 mg PO Q4H PRN PRN Reason: Cough Ceftriaxone Sodium (Rocephin/Ns 2 Gm/100 Ml) 2 gm in 100 mls @ 200 mls/hr IV Q24H TAMEKA; Protocol Azithromycin (Zithromax/Ns) 500 mg in 250 mls @ 250 mls/hr IV Q24H TAMEKA; Protocol Sodium Chloride (Nacl 0.9% 1000 Ml) 1,000 mls @ 75 mls/hr IV DIRECT TAMEKA Insulin Human Lispro (Insulin Lispro 100 Unit/Ml) 0 unit SUB-Q ACHS TAMEKA; Protocol Last Admin: 12/21/20 11:30 Dose: 8 unit Documented by: Magnesium Hydroxide (Magnesium Hydroxide (Mom) Oral Liqd Udc) 30 ml PO Q4H PRN PRN Reason: Constipation Morphine Sulfate (Morphine 2 Mg/1 Ml Inj) 2 mg IV Q4H PRN PRN Reason: Pain, Moderate (4-6) Last Admin: 12/21/20 01:06 Dose: 2 mg Documented by: Ondansetron HCl (Ondansetron 4 Mg/2 Ml Inj) 4 mg IV Q8H PRN PRN Reason: Nausea And Vomiting Oxycodone/Acetaminophen (Oxycodone /Acetaminophen 5-325mg Tab) 1 tab PO Q6H PRN PRN Reason: Pain, Moderate (4-6) Sodium Chloride (Sodium Chloride 0.9% 10 Ml Flush Syringe) 10 ml IV BID TAMEKA Last Admin: 12/21/20 10:33 Dose: 10 ml Documented by: Sodium Chloride (Sodium Chloride 0.9% 10 Ml Flush Syringe) 10 ml IV PRN PRN PRN Reason: LINE FLUSH Sodium Polystyrene Sulfonate (Sodium Polystyrene 15 Gm/60 Ml Oral Liqd) 30 gm PO ONCE TAMEKA Stop: 12/21/20 16:30 Last Admin: 12/21/20 12:51 Dose: 30 gm Documented by: Physical Examination - Physical Exam Narrative exam: General appearance: Alert in NAD anxious Eyes: anicteric sclerae, moist conjunctivae; no lid-lag; PERRLA HENT: Normocephalic, Atraumatic; normal external ears, nares open, oropharynx clear. Neck: supple, tracheal midline, no JVD Lungs: Bilateral crackles CV: RRR no murmur Abdomen: Soft, non-tender Extremities: no edema, no cyanosis Skin: No rash. Psych: Anxious Neuro: alert and oriented x 3. Moving all extermities - Constitutional Vitals: Vital Signs Temp Pulse Resp BP Pulse Ox 98.1 F 81 18 139/82 93 12/21/20 12:07 12/21/20 12:07 12/21/20 12:07 12/21/20 12:07 12/21/20 12:07 Temperature -Last 24 Hours Temperature 98.1 F Temperature 98.0 F Temperature 99.7 F Temperature 100.6 F Results - Labs CBC & Chem 7: 12/21/20 05:50 12/21/20 05:50 Labs: Abnormal lab results 12/20/20 12/20/20 12/20/20 Range/Units 19:27 19:27 19:27 WBC 2.9 L (4.5-11.0) K/mm3 RBC (3.65-5.03) M/mm3 Plt Count 116 L (140-440) K/mm3 Lymph % (Auto) 41.2 H (13.4-35.0) % Early % (Auto) 13.2 H (0.0-7.3) % Seg Neuts % (Manual) (40.0-70.0) % Seg Neutrophils # 1.3 L (1.8-7.7) K/mm3 Seg Neutrophils # Man (1.8-7.7) K/mm3 Lymphocytes # (Manual) (1.2-5.4) K/mm3 D-Dimer 260.58 H (0-234) ng/mlDDU Sodium 135 L (137-145) mmol/L Potassium (3.6-5.0) mmol/L Chloride 96.1 L (98-107) mmol/L BUN 23 H (7-17) mg/dL Creatinine 1.4 H (0.6-1.2) mg/dL Glucose 295 H (65-100) mg/dL POC Glucose (70-105) mg/dL Hemoglobin A1c (4-6) % Calcium 8.3 L (8.4-10.2) mg/dL Ferritin (10.0-200.0) ng/mL AST 125 H (5-40) units/L ALT 96 H (7-56) units/L Alkaline Phosphatase 323 H (35-129) units/L Lactate Dehydrogenase (91-180) units/L C-Reactive Protein (0.00-1.30) mg/dL Total Protein 8.7 H (6.3-8.2) g/dL Albumin 3.7 L (3.9-5) g/dL Coronavirus (PCR) (Negative) 12/20/20 12/20/20 12/21/20 Range/Units 19:43 19:43 05:50 WBC (4.5-11.0) K/mm3 RBC (3.65-5.03) M/mm3 Plt Count (140-440) K/mm3 Lymph % (Auto) (13.4-35.0) % Early % (Auto) (0.0-7.3) % Seg Neuts % (Manual) (40.0-70.0) % Seg Neutrophils # (1.8-7.7) K/mm3 Seg Neutrophils # Man (1.8-7.7) K/mm3 Lymphocytes # (Manual) (1.2-5.4) K/mm3 D-Dimer (0-234) ng/mlDDU Sodium (137-145) mmol/L Potassium (3.6-5.0) mmol/L Chloride (98-107) mmol/L BUN (7-17) mg/dL Creatinine (0.6-1.2) mg/dL Glucose 297 H (65-100) mg/dL POC Glucose (70-105) mg/dL Hemoglobin A1c 10.3 H (4-6) % Calcium (8.4-10.2) mg/dL Ferritin 1420.0 H (10.0-200.0) ng/mL AST (5-40) units/L ALT (7-56) units/L Alkaline Phosphatase (35-129) units/L Lactate Dehydrogenase 491 H (91-180) units/L C-Reactive Protein 5.50 H (0.00-1.30) mg/dL Total Protein (6.3-8.2) g/dL Albumin (3.9-5) g/dL Coronavirus (PCR) (Negative) 12/21/20 12/21/20 12/21/20 Range/Units 05:50 05:50 08:04 WBC 1.6 L* (4.5-11.0) K/mm3 RBC 3.40 L (3.65-5.03) M/mm3 Plt Count 104 L (140-440) K/mm3 Lymph % (Auto) (13.4-35.0) % Early % (Auto) (0.0-7.3) % Seg Neuts % (Manual) 82.0 H (40.0-70.0) % Seg Neutrophils # (1.8-7.7) K/mm3 Seg Neutrophils # Man 1.3 L (1.8-7.7) K/mm3 Lymphocytes # (Manual) 0.3 L (1.2-5.4) K/mm3 D-Dimer (0-234) ng/mlDDU Sodium 132 L (137-145) mmol/L Potassium 5.7 H D (3.6-5.0) mmol/L Chloride 95.7 L (98-107) mmol/L BUN 33 H (7-17) mg/dL Creatinine 1.7 H (0.6-1.2) mg/dL Glucose 500 H (65-100) mg/dL POC Glucose 483 H (70-105) mg/dL Hemoglobin A1c (4-6) % Calcium 7.7 L (8.4-10.2) mg/dL Ferritin (10.0-200.0) ng/mL AST (5-40) units/L ALT (7-56) units/L Alkaline Phosphatase (35-129) units/L Lactate Dehydrogenase (91-180) units/L C-Reactive Protein (0.00-1.30) mg/dL Total Protein (6.3-8.2) g/dL Albumin (3.9-5) g/dL Coronavirus (PCR) (Negative) 12/21/20 12/21/20 Range/Units 10:28 12:05 WBC (4.5-11.0) K/mm3 RBC (3.65-5.03) M/mm3 Plt Count (140-440) K/mm3 Lymph % (Auto) (13.4-35.0) % Early % (Auto) (0.0-7.3) % Seg Neuts % (Manual) (40.0-70.0) % Seg Neutrophils # (1.8-7.7) K/mm3 Seg Neutrophils # Man (1.8-7.7) K/mm3 Lymphocytes # (Manual) (1.2-5.4) K/mm3 D-Dimer (0-234) ng/mlDDU Sodium (137-145) mmol/L Potassium (3.6-5.0) mmol/L Chloride (98-107) mmol/L BUN (7-17) mg/dL Creatinine (0.6-1.2) mg/dL Glucose (65-100) mg/dL POC Glucose 482 H (70-105) mg/dL Hemoglobin A1c (4-6) % Calcium (8.4-10.2) mg/dL Ferritin (10.0-200.0) ng/mL AST (5-40) units/L ALT (7-56) units/L Alkaline Phosphatase (35-129) units/L Lactate Dehydrogenase (91-180) units/L C-Reactive Protein (0.00-1.30) mg/dL Total Protein (6.3-8.2) g/dL Albumin (3.9-5) g/dL Coronavirus (PCR) Positive A (Negative) Assessment and Plan Cultures: Blood culture pending SARS-CoV-2 PCR positive Assessment: 55-year-old female with history, diabetes mellitus, morbid obesity, admitted on 12/20/2020 secondary to a week history of cough, generalized malaise, fever, chills, progressive shortness of breath: #Acute sepsis: Present on admission with fever, hypoxia, tachycardia, hypot ension: Likely secondary to severe COVID-19 pneumonia. #Severe COVID-19 pneumonia: Inflammatory markers elevated. D-dimer 260. Ferritin 1420. LDH 491. CRP 5.5. Chest x-ray with bilateral patchy i nfiltrates. Procalcitonin is slightly up in the setting of HOMA. #Acute hypoxemic respiratory failure: Currently on high flow nasal cannula 75%, 15 L #Elevated creatinine: Likely secondary to COVID-19. #Elevated LFTs: Likely secondary to COVID-19. #Neutropenia/thrombocytopenia: Likely secondary to COVID-19. Recommendations: -Pulmonary consult -Start Dexamethasone 6 mg IV/PO daily for 10 days -Start Remdesivir for 5 days -Monitor inflammatory markers - ferritin, Ddimer, CRP, LDH -Monitor liver function test on Remdesivir -Continue anticoagulation per System Protocol -Prone positioning as possible -Continue ceftriaxone and azithromycin Close monitoring patient with recent decompensation requiring intubation Will follow Asai Alvarez MD Infectious Diseases Bilingual Hr Generalist [facility] M [phone] O [phone] ]
[2020-12-21] MEDS: guaiFENesin 100 MG/5 ML ORAL LIQD PO PRN (16:42)
[2020-12-21] MEDS: oxyCODONE /ACETAMINOPHEN 5-325MG TAB PO PRN (16:42)
[2020-12-21] MEDS ORDERED: glipiZIDE 10 MG TAB PO SCH (17:00)
[2020-12-21] MEDS ORDERED: REMDESIVIR 100 MG VIAL IV ONE (17:00)
[2020-12-21] MEDS ORDERED: REMDESIVIR 200 MG in SODIUM CHLORIDE 0.9% 250ML 250 ML IV ONE (17:00)
[2020-12-21] MEDS: SODIUM CHLORIDE 0.9% 50 ML IVPB IV SCH (18:46)
[2020-12-21 19:12] LABS: Calcium 7.5 mg/dL (8.4-10.2)
[2020-12-21] MEDS ORDERED: GABAPENTIN 400 MG CAP PO SCH (20:00)
[2020-12-21] MEDS: AZITHROMYCIN/NS 500 MG/250 ML 500 MG/250 ML BAG IV SCH (22:22)
[2020-12-21] MEDS: ENOXAPARIN 40 MG/0.4 ML INJ SUB-Q SCH (22:25)
[2020-12-21] MEDS: GABAPENTIN 400 MG CAP PO SCH (22:26)
[2020-12-21] MEDS: cefTRIAXone/NS 2 GM/100 ML 2 GM/100 ML BAG IV SCH (22:36)
[2020-12-22] MEDS: ACETAMINOPHEN 325 MG TAB PO PRN (02:26)
[2020-12-22 03:23] LABS: Creatinine,Urine 117.9 mg/dL (0.1-20.0)
[2020-12-22 03:29] LABS: Bacteria,Urine 1+ /HPF (Negative); Bilirubin,Urine NEG (Negative); Blood,Urine SM (Negative); Color,Urine Yellow (Yellow); Mucus,Urine FEW /HPF
[2020-12-22] MEDS ORDERED: LORazepam 2 MG/ML VIAL IV ONE (03:30)
[2020-12-22] MEDS: SODIUM CHLORIDE 0.9% 1000 ML 1,000 ML IV SCH (04:38)
[2020-12-22 06:21] LABS: Albumin 3.1 g/dL (3.9-5); Calcium 7.5 mg/dL (8.4-10.2)
[2020-12-22] MEDS: INSULIN LISPRO 100 UNIT/ML SUB-Q SCH ×4 (08:53→21:26)
[2020-12-22] MEDS: GABAPENTIN 400 MG CAP PO SCH ×2 (09:42→21:02)
[2020-12-22] MEDS: dexAMETHasone 4 MG/ML VIAL IV SCH (09:43)
[2020-12-22] MEDS: glipiZIDE 10 MG TAB PO SCH ×2 (09:43→16:54)
--- NOTE | 2020-12-22 10:55 | Progress Note ---
Assessment and Plan - Patient Problems (1) Asthma Current Visit: Yes Status: Acute (2) Diabetes Current Visit: Yes Status: Acute (3) HTN (hypertension) Current Visit: Yes Status: Acute (4) Diabetic neuropathy Current Visit: Yes Status: Acute (5) HOMA (acute kidney injury) Current Visit: Yes Status: Acute (6) Acute respiratory failure with hypoxia Current Visit: Yes Status: Acute (7) Elevated liver enzymes Current Visit: Yes Status: Acute (8) Full code status Current Visit: Yes Status: Acute (9) Pneumonia due to COVID-19 virus Current Visit: Yes Status: Acute (10) SIRS (systemic inflammatory response syndrome) Current Visit: Yes Status: Acute (11) Morbid obesity Current Visit: No Status: Acute (12) Headache Current Visit: Yes Status: Acute Subjective Interval history: sob, c/o VARGAS Objective Vital Signs - 12hr 12/22/20 12/22/20 12/22/20 02:38 06:38 08:31 Temperature 97.8 F Pulse Rate 79 Respiratory 24 Rate Blood Pressure 120/55 O2 Sat by Pulse 90 99 91 Oximetry Constitutional: no acute distress, alert (obese), other (obese on Hiflo 100%) Eyes: non-icteric ENT: oropharynx moist Neck: supple Effort: normal Ascultation: Bilateral: clear, diminished breath sounds Cardiovascular: regular rate and rhythm Gastrointestinal: normoactive bowel sounds, soft, non-tender Integumentary: normal Extremities: no cyanosis Neurologic: normal mental status, non-focal exam Psychiatric: mood appropriate, affect normal CBC and BMP: 12/21/20 05:50 12/22/20 05:29 ABG, PT/INR, D-dimer: PT/INR, D-dimer PT 13.1 Sec. (12.2-14.9) 12/21/20 05:50 INR 1.01 (0.87-1.13) 12/21/20 05:50 D-Dimer 260.58 ng/mlDDU (0-234) H 12/20/20 19:27 Abnormal lab findings: Abnormal Labs 12/20/20 12/20/20 12/20/20 19:27 19:27 19:27 WBC 2.9 L RBC Plt Count 116 L Lymph % (Auto) 41.2 H Rhea % (Auto) 13.2 H Seg Neuts % (Manual) Seg Neutrophils # 1.3 L Seg Neutrophils # Man Lymphocytes # (Manual) D-Dimer 260.58 H Sodium 135 L Potassium Chloride 96.1 L BUN 23 H Creatinine 1.4 H Glucose 295 H POC Glucose Hemoglobin A1c Calcium 8.3 L Ferritin AST 125 H ALT 96 H Alkaline Phosphatase 323 H Lactate Dehydrogenase C-Reactive Protein Total Protein 8.7 H Albumin 3.7 L Urine Creatinine Coronavirus (PCR) 12/20/20 12/20/20 12/21/20 19:43 19:43 05:50 WBC RBC Plt Count Lymph % (Auto) Rhea % (Auto) Seg Neuts % (Manual) Seg Neutrophils # Seg Neutrophils # Man Lymphocytes # (Manual) D-Dimer Sodium Potassium Chloride BUN Creatinine Glucose 297 H POC Glucose Hemoglobin A1c 10.3 H Calcium Ferritin 1420.0 H AST ALT Alkaline Phosphatase Lactate Dehydrogenase 491 H C-Reactive Protein 5.50 H Total Protein Albumin Urine Creatinine Coronavirus (PCR) 12/21/20 12/21/20 12/21/20 05:50 05:50 08:04 WBC 1.6 L* RBC 3.40 L Plt Count 104 L Lymph % (Auto) Rhea % (Auto) Seg Neuts % (Manual) 82.0 H Seg Neutrophils # Seg Neutrophils # Man 1.3 L Lymphocytes # (Manual) 0.3 L D-Dimer Sodium 132 L Potassium 5.7 H D Chloride 95.7 L BUN 33 H Creatinine 1.7 H Glucose 500 H POC Glucose 483 H Hemoglobin A1c Calcium 7.7 L Ferritin AST ALT Alkaline Phosphatase Lactate Dehydrogenase C-Reactive Protein Total Protein Albumin Urine Creatinine Coronavirus (PCR) 12/21/20 12/21/20 12/21/20 10:28 12:05 16:54 WBC RBC Plt Count Lymph % (Auto) Rhea % (Auto) Seg Neuts % (Manual) Seg Neutrophils # Seg Neutrophils # Man Lymphocytes # (Manual) D-Dimer Sodium Potassium Chloride BUN Creatinine Glucose POC Glucose 482 H 374 H Hemoglobin A1c Calcium Ferritin AST ALT Alkaline Phosphatase Lactate Dehydrogenase C-Reactive Protein Total Protein Albumin Urine Creatinine Coronavirus (PCR) Positive A 12/21/20 12/21/20 12/22/20 18:24 22:12 03:00 WBC RBC Plt Count Lymph % (Auto) Rhea % (Auto) Seg Neuts % (Manual) Seg Neutrophils # Seg Neutrophils # Man Lymphocytes # (Manual) D-Dimer Sodium 131 L Potassium Chloride 95.2 L BUN 37 H Creatinine 1.4 H Glucose 417 H POC Glucose 358 H Hemoglobin A1c Calcium 7.5 L Ferritin AST 82 H ALT 69 H Alkaline Phosphatase 262 H Lactate Dehydrogenase C-Reactive Protein Total Protein Albumin 3.0 L Urine Creatinine 117.9 H Coronavirus (PCR) 12/22/20 12/22/20 05:29 08:19 WBC RBC Plt Count Lymph % (Auto) Rhea % (Auto) Seg Neuts % (Manual) Seg Neutrophils # Seg Neutrophils # Man Lymphocytes # (Manual) D-Dimer Sodium Potassium Chloride BUN 34 H Creatinine 1.3 H Glucose 169 H POC Glucose 136 H Hemoglobin A1c Calcium 7.5 L Ferritin AST 74 H ALT 60 H Alkaline Phosphatase 249 H Lactate Dehydrogenase C-Reactive Protein Total Protein Albumin 3.1 L Urine Creatinine Coronavirus (PCR)
--- NOTE | 2020-12-22 11:20 | Progress Note ---
Assessment and Plan Assessment and plan: COVID-19 infection. Acute hypoxic respiratory failure. Diabetes mellitus type 2. Morbid obesity. Elevated LFTs. DVT prophylaxis. 12/21/2020. Follow-up COVID-19 testing. Continue to trend inflammatory markers. Continue dexamethasone. ID and pulmonary consultation pending. Patient currently with 6 L/min O2 FiO2 44%. 12/22/2020. COVID-19 testing found to be positive. Continue to trend inflamma tory markers. Continue dexamethasone. Patient requiring more oxygen with high flow nasal cannula 30 L/min and FiO2 100%. ID and pulmonary following. History Interval history: No new issues overnight. Hospitalist Physical - Constitutional Vitals: Temp Pulse Resp BP Pulse Ox 97.8 F 79 24 120/55 91 12/22/20 06:38 12/22/20 06:38 12/22/20 06:38 12/22/20 06:38 12/22/20 08:31 General appearance: Present: no acute distress, well-nourished, obese - EENT Eyes: Present: PERRL, EOM intact ENT: hearing intact, clear oral mucosa, dentition normal - Neck Neck: Present: supple, normal ROM - Respiratory Respiratory effort: normal Respiratory: bilateral: CTA - Cardiovascular Rhythm: regular Heart Sounds: Present: S1 & S2. Absent: gallop, rub - Extremities Extremities: no ischemia, No edema, Full ROM - Abdominal General gastrointestinal: soft, non-tender, non-distended, normal bowel sounds - Integumentary Integumentary: Present: clear, warm, dry - Neurologic Neurologic: CNII-XII intact, moves all extremities HEART Score - HEART Score Troponin: Troponin T < 0.010 ng/mL (0.00-0.029) 12/20/20 19:27 Results - Labs CBC & Chem 7: 12/21/20 05:50 12/22/20 05:29 Labs: Laboratory Last Values WBC 1.6 K/mm3 (4.5-11.0) L* 12/21/20 05:50 RBC 3.40 M/mm3 (3.65-5.03) L 12/21/20 05:50 Hgb 10.8 gm/dl (10.1-14.3) 12/21/20 05:50 Hct 32.7 % (30.3-42.9) D 12/21/20 05:50 MCV 96 fl (79-97) 12/21/20 05:50 MCH 32 pg (28-32) 12/21/20 05:50 MCHC 33 % (30-34) 12/21/20 05:50 RDW 14.3 % (13.2-15.2) 12/21/20 05:50 Plt Count 104 K/mm3 (140-440) L 12/21/20 05:50 Lymph % (Auto) 41.2 % (13.4-35.0) H 12/20/20 19:27 [place] % (Auto) 13.2 % (0.0-7.3) H 12/20/20 19:27 Eos % (Auto) 0.1 % (0.0-4.3) 12/20/20 19: Baso % (Auto) 0.4 % (0.0-1.8) 12/20/20 19:27 Lymph # (Auto) 1.2 K/mm3 (1.2-5.4) 12/20/20 19:27 [place] # (Auto) 0.4 K/mm3 (0.0-0.8) 12/20/20 19:27 Eos # (Auto) 0.0 K/mm3 (0.0-0.4) 12/20/20 19:27 Baso # (Auto) 0.0 K/mm3 (0.0-0.1) 12/20/20 19:27 Add Manual Diff Complete 12/21/20 05:50 Total Counted 50 12/21/20 05:50 Seg Neutrophils % 45.1 % (40.0-70.0) 12/20/20 19:27 Seg Neuts % (Manual) 82.0 % (40.0-70.0) H 12/21/20 05:50 Band Neutrophils % 2.0 % 12/21/20 05:50 Lymphocytes % (Manual) 16.0 % (13.4-35.0) 12/21/20 05:50 Nucleated RBC % Not Reportable 12/21/20 05:50 Seg Neutrophils # 1.3 K/mm3 (1.8-7.7) L 12/20/20 19:27 Seg Neutrophils # Man 1.3 K/mm3 (1.8-7.7) L 12/21/20 05:50 Band Neutrophils # 0.0 K/mm3 12/21/20 05:50 Lymphocytes # (Manual) 0.3 K/mm3 (1.2-5.4) L 12/21/20 05:50 Abs React Lymphs (Man) 0.0 K/mm3 12/21/20 05:50 Monocytes # (Manual) 0.0 K/mm3 (0.0-0.8) 12/21/20 05:50 Eosinophils # (Manual) 0.0 K/mm3 (0.0-0.4) 12/21/20 05:50 Basophils # (Manual) 0.0 K/mm3 (0.0-0.1) 12/21/20 05:50 Metamyelocytes # 0.0 K/mm3 12/21/20 05:50 Myelocytes # 0.0 K/mm3 12/21/20 05:50 Promyelocytes # 0.0 K/mm3 12/21/20 05:50 Blast Cells # 0.0 K/mm3 12/21/20 05:50 WBC Morphology Not Reportable 12/21/20 05:50 Hypersegmented Neuts Not Reportable 12/21/20 05:50 Hyposegmented Neuts Not Reportable 12/21/20 05:50 Hypogranular Neuts Not Reportable 12/21/20 05:50 Smudge Cells Not Reportable 12/21/20 05:50 Toxic Granulation Not Reportable 12/21/20 05:50 Toxic Vacuolation Not Reportable 12/21/20 05:50 Dohle Bodies Not Reportable 12/21/20 05:50 Pelger-Huet Anomaly Not Reportable 12/21/20 05:50 Jair Rods Not Reportable 12/21/20 05:50 Platelet Estimate Consistent w auto 12/21/20 05:50 Clumped Platelets Not Reportable 12/21/20 05:50 Plt Clumps, EDTA Not Reportable 12/21/20 05:50 Large Platelets Not Reportable 12/21/20 05:50 Giant Platelets Not Reportable 12/21/20 05:50 Platelet Satelliting Not Reportable 12/21/20 05:50 Plt Morphology Comment Not Reportable 12/21/20 05:50 RBC Morphology Normal 12/21/20 05:50 Dimorphic RBCs Not Reportable 12/21/20 05:50 Polychromasia Not Reportable 05/11/21 05:50 Hypochromasia Not Reportable 12/21/20 05:50 Poikilocytosis Not Reportable 12/21/20 05:50 Anisocytosis Not Reportable 12/21/20 05:50 Microcytosis Not Reportable 12/21/20 05:50 Macrocytosis Not Reportable 12/21/20 05:50 Spherocytes Not Reportable 12/21/20 05:50 Pappenheimer Bodies Not Reportable 12/21/20 05:50 Sickle Cells Not Reportable 12/21/20 05:50 Target Cells Not Reportable 12/21/20 05:50 Tear Drop Cells Not Reportable 12/21/20 05:50 Ovalocytes Not Reportable 12/21/20 05:50 Helmet Cells Not Reportable 12/21/20 05:50 [place] Bodies Not Reportable 12/21/20 05:50 Silex Rings Not Reportable 12/21/20 05:50 Ale Cells Not Reportable 12/21/20 05:50 Bite Cells Not Reportable 12/21/20 05:50 Crenated Cell Not Reportable 12/21/20 05:50 Elliptocytes Not Reportable 12/21/20 05:50 Acanthocytes (Spur) Not Reportable 12/21/20 05:50 Rouleaux Not Reportable 12/21/20 05:50 Hemoglobin C Crystals Not Reportable 12/21/20 05:50 Schistocytes Not Reportable 12/21/20 05:50 Malaria parasites Not Reportable 12/21/20 05:50 Giorgi Bodies Not Reportable 12/21/20 05:50 Hem Pathologist Commnt No 12/21/20 05:50 PT 13.1 Sec. (12.2-14.9) 12/21/20 05:50 INR 1.01 (0.87-1.13) 12/21/20 05:50 D-Dimer 260.58 ng/mlDDU (0-234) H 12/20/20 19:27 Sodium 137 mmol/L (137-145) 12/22/20 05:29 Potassium 4.0 mmol/L (3.6-5.0) 12/22/20 05:29 Chloride 100.9 mmol/L (98-107) 12/22/20 05:29 Carbon Dioxide 26 mmol/L (22-30) 12/22/20 05:29 Anion Gap 14 mmol/L 12/22/20 05:29 BUN 34 mg/dL (7-17) H 12/22/20 05:29 Creatinine 1.3 mg/dL (0.6-1.2) H 12/22/20 05:29 Estimated GFR 51 ml/min 12/22/20 05:29 BUN/Creatinine Ratio 26 % 12/22/20 05:29 Glucose 169 mg/dL (65-100) H 12/22/20 05:29 POC Glucose 136 mg/dL (70-105) H 12/22/20 08:19 Hemoglobin A1c 10.3 % (4-6) H 12/21/20 05:50 Lactic Acid 1.40 mmol/L (0.7-2.0) 12/21/20 05:50 Calcium 7.5 mg/dL (8.4-10.2) L 12/22/20 05:29 Ferritin 1420.0 ng/mL (10.0-200.0) H 12/20/20 19:43 Total Bilirubin 0.40 mg/dL (0.1-1.2) 12/22/20 05:29 AST 74 units/L (5-40) H 12/22/20 05:29 ALT 60 units/L (7-56) H 12/22/20 05:29 Alkaline Phosphatase 249 units/L (35-129) H 12/22/20 05:29 Lactate Dehydrogenase 491 units/L (91-180) H 12/20/20 19:43 Troponin T < 0.010 ng/mL (0.00-0.029) 12/20/20 19:27 C-Reactive Protein 5.50 mg/dL (0.00-1.30) H 12/20/20 19:43 Total Protein 7.5 g/dL (6.3-8.2) 12/22/20 05:29 Albumin 3.1 g/dL (3.9-5) L 12/22/20 05:29 Albumin/Globulin Ratio 0.7 % 12/22/20 05:29 Procalcitonin 0.32 ng/mL (<0.15) 12/20/20 19:43 Urine Color Yellow (Yellow) 12/22/20 03:00 Urine Turbidity Clear (Clear) 12/22/20 03:00 Urine pH 5.0 (5.0-7.0) 12/22/20 03:00 Ur Specific [place] 1.019 (1.003-1.030) 12/22/20 03:00 Urine Protein 100 mg/dl mg/dL (Negative) 12/22/20 03:00 Urine Glucose (UA) 50 mg/dL (Negative) 12/22/20 03:00 Urine Ketones Neg mg/dL (Negative) 12/22/20 03:00 Urine Blood Sm (Negative) 12/22/20 03:00 Urine Nitrite Neg (Negative) 12/22/20 03:00 Urine Bilirubin Neg (Negative) 12/22/20 03:00 Urine Urobilinogen 2.0 mg/dL (<2.0) 12/22/20 03:00 Ur Leukocyte Esterase Neg (Negative) 12/22/20 03:00 Urine WBC (Auto) 1.0 /HPF (0.0-6.0) 12/22/20 03:00 Urine RBC (Auto) 1.0 /HPF (0.0-6.0) 12/22/20 03:00 U Epithel Cells (Auto) 3.0 /HPF (0-13.0) 12/22/20 03:00 Urine Bacteria (Auto) 1+ /HPF (Negative) 12/22/20 03:00 Urine Mucus Few /HPF 12/22/20 03:00 Urine Eosinophils None seen (None Seen) 12/22/20 03:00 Urine Creatinine 117.9 mg/dL (0.1-20.0) H 12/22/20 03:00 Urine Sodium 67 mmol/L 12/22/20 03:00 Coronavirus (PCR) Positive (Negative) A 12/21/20 10:28 Microbiology: Microbiology 12/20/20 19:27 Peripheral/Venous Blood Culture - Preliminary NO GROWTH AFTER 24 HOURS 12/20/20 19:43 Peripheral/Venous Blood Culture - Preliminary NO GROWTH AFTER 24 HOURS Curtis/IV: Voiding Method Bedside Commode Active Medications - Current Medications Current Medications: Generic Name Dose Route Start Last Admin Trade Name Freq PRN Reason Stop Dose Admin Acetaminophen 650 mg 12/20/20 23:15 12/22/20 02:26 Acetaminophen 325 Mg Tab PO 650 mg Q4H PRN Administration Pain MILD(1-3)/Fever >100.5/VARGAS Albuterol 2.5 mg 12/21/20 12:00 Albuterol 2.5 Mg/3 Ml Nebu IH Q4HRT PRN Shortness Of Breath Dexamethasone 6 mg 12/21/20 10:00 12/22/20 09:43 Dexamethasone 4 Mg/Ml Vial IV 6 mg Q24HR TAMEKA Administration Dextrose 50 ml 12/20/20 23:15 Dextrose 50% In Water (25gm) 50 Ml Syringe IV Q30MIN PRN Hypoglycemia Protocol Enoxaparin Sodium 40 mg 12/21/20 22:00 12/21/20 22:25 Enoxaparin 40 Mg/0.4 Ml Inj SUB-Q 40 mg QDAY@2200 TAMEKA Administration Protocol Gabapentin 800 mg 12/21/20 22:00 12/22/20 09:42 Gabapentin 400 Mg Cap PO 800 mg BID TAMEKA Administration Glipizide 10 mg 12/21/20 10:00 12/22/20 09:43 Glipizide 10 Mg Tab PO 10 mg BIDDIAB TAMEKA Administration Guaifenesin 200 mg 12/21/20 16:00 12/21/20 16:42 Guaifenesin 100 Mg/5 Ml Oral Liqd PO 200 mg Q4H PRN Administration Cough Ceftriaxone Sodium 2 gm in 100 mls @ 200 mls/hr 12/21/20 21:00 12/21/20 22:36 Rocephin/Ns 2 Gm/100 Ml IV 200 mls/hr Q24H TAMEKA Administration Protocol Azithromycin 500 mg in 250 mls @ 250 mls/hr 12/21/20 22:00 12/21/20 22:22 Zithromax/Ns IV 250 mls/hr Q24H TAMEKA Administration Protocol Sodium Chloride 1,000 mls @ 75 mls/hr 12/21/20 12:00 12/22/20 04:38 Nacl 0.9% 1000 Ml IV 75 mls/hr DIRECT TAMEKA Administration REMDESIVIR 100 mg/ Sodium 250 mls @ 500 mls/hr 12/22/20 21:00 Chloride IV 12/25/20 21:29 Q24HR@2100 TAMEKA Insulin Human Lispro 0 unit 12/21/20 07:30 12/22/20 08:53 Insulin Lispro 100 Unit/Ml SUB-Q Not Given ACHS TAMEKA Protocol Magnesium Hydroxide 30 ml 12/20/20 23:15 Magnesium Hydroxide (Mom) Oral Liqd Udc PO Q4H PRN Constipation Morphine Sulfate 2 mg 12/20/20 23:15 12/21/20 01:06 Morphine 2 Mg/1 Ml Inj IV 2 mg Q4H PRN Administration Pain, Moderate (4-6) Ondansetron HCl 4 mg 12/20/20 23:15 Ondansetron 4 Mg/2 Ml Inj IV Q8H PRN Nausea And Vomiting Oxycodone/Acetaminophen 1 tab 12/21/20 16:00 12/21/20 16:42 Oxycodone /Acetaminophen 5-325mg Tab PO 1 tab Q6H PRN Administration Pain, Moderate (4-6) Sodium Chloride 10 ml 12/21/20 10:00 12/22/20 09:43 Sodium Chloride 0.9% 10 Ml Flush Syringe IV 10 ml BID TAMEKA Administration Sodium Chloride 10 ml 12/20/20 23:15 12/21/20 18:48 Sodium Chloride 0.9% 10 Ml Flush Syringe IV 10 ml PRN PRN Administration LINE FLUSH Sodium Chloride 50 ml 12/21/20 17:30 12/21/20 18:46 Sodium Chloride 0.9% 50 Ml Ivpb IV 12/25/20 21:01 50 ml Q24HR@2100 TAMEKA Administration Nutrition/Malnutrition Assess - Dietary Evaluation Nutrition/Malnutrition Findings: Nutrition Notes Start: 12/21/20 09:35 Freq: Status: Active Protocol: Document 12/21/20 09:35 AT (Rec: 12/21/20 09:37 AT [id number]) Co-Sign 12/21/20 09:35 LP Nutrition Notes 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 Pt has a Wayne Score of 21 with no integumentary symptoms. Couldn 't reach pt by phone x2. RN confirmed pt had no wounds. Per RN, pt has poor appetite and consumed between 20-30% of breakfast this morning. Percent of energy/protein needs met: 25%/26% Burn Absent Trauma Absent GI Symptoms None Minimum of two criteria No physical signs of malnutrition #1 Nutrition Diagnosis Inadequate oral intake Etiology chronic illness As Evidenced by Signs and Symptoms pt consuming 20-30% of breakfast Is patient on ventilator? No Is Patient Ambulatory and/or Out of Bed Yes REE-([facility]-ambulatory/OOB) [ 2673.372 NUTR.MSJOOB] Kcal/Kg value to use for calculation 14 Approximate Energy Requirements Using 2000 kcal/Kg Calculation Used for Recommendations Kcal/kg Additional Notes PRO needs: 82-102g (0.8-1g/kg AdBW 102 kg) Fluid needs: 1 mL/kcal or per MD Nutrition Intervention Change Diet Order: Continue current diet as ordered Add Supplement/Snack (indicate name/kcal Ensure High Protein BID /protein ) Provides kCal: 320 Provides Protein (gm) 32 Goal #1 Meet at least 75% of energy and protein needs via diet and ONS Anticipated Discharge Needs: Cardiac/Consistent CHO Follow-Up By: 12/23/20 Additional Comments F/U for intakes, ONS tolerance , diet education needs
--- NOTE | 2020-12-22 11:42 | Progress Note ---
Assessment and Plan 1. Acute kidney injury: HOMA in the setting of vasomotor insult vs Covid infection. Urine studies and Renal US ordered. Monitor renal function. Creatinine level is improving. Avoid nephrotoxic agents. Meds dosage based on GFR. 2. FEN: Hyperkalemia, improved, monitor. Monitor volume status and lytes. 3. Covid infection: Isolation, follow inflammatory markers. Followed by ID. 4. Acute on chronic hypoxemic respiratory failure, POA: 2/2 COVID infection. CXR showed mild patchy parenchymal opacities bilaterally. Supplemental oxygen as needed. 5. DM type 2: SSI. Monitor bl sugar. 6. HTN: Monitor BP. Adjust meds as needed. 7. Leukopenia: Monitor. 8. Elevated Transaminases: Trend. Subjective: Patient was seen and examined at the bedside. Doing ok. Objective: General appearance: well-developed, appears stated age, morbidly obese, not in distress HEENT: ATNC, JENNIFER Neck: trachea midline Respiratory: diminished breath sounds Heart: regular, S1S2, no murmur Gastrointestinal: soft, normoactive bowel sounds, not tender Integumentary: no obvious rash Ext: no edema Neurologic: AO, able to move extremities Subjective Date of service: 12/22/20 Objective - Vital Signs Vital signs: Vital Signs - 12hr 12/22/20 12/22/20 12/22/20 02:38 06:38 08:31 Temperature 97.8 F Pulse Rate 79 Respiratory 24 Rate Blood Pressure 120/55 O2 Sat by Pulse 90 99 91 Oximetry - Lab 12/21/20 05:50 12/22/20 05:29 Most recent lab results Calcium 7.5 mg/dL (8.4-10.2) L 12/22/20 05:29 Urine Creatinine 117.9 mg/dL (0.1-20.0) H 12/22/20 03:00 Urine Sodium 67 mmol/L 12/22/20 03:00 Medications & Allergies - Medications Allergies/Adverse Reactions: Allergies No Known Allergies Allergy (Verified 12/29/14 22:38) Home Medications: Home Medications Medication Instructions Recorded Confirmed Last Taken Type Cyclobenzaprine [Flexeril 10 MG 10 mg PO QHS PRN 12/21/20 12/21/20 Unknown H istory TAB] Gabapentin [Neurontin] 800 mg PO TID 12/21/20 12/21/20 12/20/20 History metFORMIN [Glucophage] 1,000 mg PO BID 12/21/20 12/21/20 12/20/20 History traMADoL [Ultram 50 MG tab] 50 mg PO BID PRN MDD 100 12/21/20 12/21/20 Unknown History Active Medications: Generic Name Dose Route Start Last Admin Trade Name Freq PRN Reason Stop Dose Admin Acetaminophen 650 mg 12/20/20 23:15 12/22/20 02:26 Acetaminophen 325 Mg Tab PO 650 mg Q4H PRN Administration Pain MILD(1-3)/Fever >100.5/VARGAS Albuterol 2.5 mg 12/21/20 12:00 Albuterol 2.5 Mg/3 Ml Nebu IH Q4HRT PRN Shortness Of Breath Dexamethasone 6 mg 12/21/20 10:00 12/22/20 09:43 Dexamethasone 4 Mg/Ml Vial IV 6 mg Q24HR TAMEKA Administration Dextrose 50 ml 12/20/20 23:15 Dextrose 50% In Water (25gm) 50 Ml Syringe IV Q30MIN PRN Hypoglycemia Protocol Enoxaparin Sodium 40 mg 12/21/20 22:00 12/21/20 22:25 Enoxaparin 40 Mg/0.4 Ml Inj SUB-Q 40 mg QDAY@2200 TAMEKA Administration Protocol Gabapentin 800 mg 12/21/20 22:00 12/22/20 09:42 Gabapentin 400 Mg Cap PO 800 mg BID TAMEKA Administration Glipizide 10 mg 12/21/20 10:00 12/22/20 09:43 Glipizide 10 Mg Tab PO 10 mg BIDDIAB TAMEKA Administration Guaifenesin 200 mg 12/21/20 16:00 12/21/20 16:42 Guaifenesin 100 Mg/5 Ml Oral Liqd PO 200 mg Q4H PRN Administration Cough Ceftriaxone Sodium 2 gm in 100 mls @ 200 mls/hr 12/21/20 21:00 12/21/20 22:36 Rocephin/Ns 2 Gm/100 Ml IV 200 mls/hr Q24H TAMEKA Administration Protocol Azithromycin 500 mg in 250 mls @ 250 mls/hr 12/21/20 22:00 12/21/20 22:22 Zithromax/Ns IV 250 mls/hr Q24H TAMEKA Administration Protocol Sodium Chloride 1,000 mls @ 75 mls/hr 12/21/20 12:00 12/22/20 04:38 Nacl 0.9% 1000 Ml IV 75 mls/hr DIRECT TAMEKA Administration REMDESIVIR 100 mg/ Sodium 250 mls @ 500 mls/hr 12/22/20 21:00 Chloride IV 12/25/20 21:29 Q24HR@2100 TAMEKA Insulin Human Lispro 0 unit 12/21/20 07:30 12/22/20 08:53 Insulin Lispro 100 Unit/Ml SUB-Q Not Given ACHS TAMEKA Protocol Magnesium Hydroxide 30 ml 12/20/20 23:15 Magnesium Hydroxide (Mom) Oral Liqd Udc PO Q4H PRN Constipation Morphine Sulfate 2 mg 12/20/20 23:15 12/21/20 01:06 Morphine 2 Mg/1 Ml Inj IV 2 mg Q4H PRN Administration Pain, Moderate (4-6) Ondansetron HCl 4 mg 12/20/20 23:15 Ondansetron 4 Mg/2 Ml Inj IV Q8H PRN Nausea And Vomiting Oxycodone/Acetaminophen 1 tab 12/21/20 16:00 12/21/20 16:42 Oxycodone /Acetaminophen 5-325mg Tab PO 1 tab Q6H PRN Administration Pain, Moderate (4-6) Sodium Chloride 10 ml 12/21/20 10:00 12/22/20 09:43 Sodium Chloride 0.9% 10 Ml Flush Syringe IV 10 ml BID TAMEKA Administration Sodium Chloride 10 ml 12/20/20 23:15 12/21/20 18:48 Sodium Chloride 0.9% 10 Ml Flush Syringe IV 10 ml PRN PRN Administration LINE FLUSH Sodium Chloride 50 ml 12/21/20 17:30 12/21/20 18:46 Sodium Chloride 0.9% 50 Ml Ivpb IV 12/25/20 21:01 50 ml Q24HR@2100 TAMEKA Administration
[2020-12-22] MEDS: AYR SALINE NASAL GEL 14.1 GM NS SCH ×2 (13:06→21:01)
[2020-12-22] MEDS: MORPHINE 2 MG/1 ML INJ IV PRN (13:19)
--- NOTE | 2020-12-22 14:09 | Progress Note ---
Assessment and Plan Cultures: Blood culture no growth today SARS-CoV-2 PCR positive Assessment: 55-year-old female with history, diabetes mellitus, morbid obesity, admitted on 12/20/2020 secondary to a week history of cough, generalized malaise, fever, chills, progressive shortness of breath: #Acute sepsis: Likely secondary to severe COVID-19 pneumonia. #Severe COVID-19 pneumonia: Inflammatory markers elevated. D-dimer 260. Ferritin 1420. LDH 491. CRP 5.5. Chest x-ray with bilateral patchy infiltrates. Procalcitonin is slightly up in the setting of HOMA. #Acute hypoxemic respiratory failure: Currently on high flow nasal cannula 75%, 15 L #Elevated creatinine: Likely secondary to COVID-19. Slightly better. #Elevated LFTs: Likely secondary to COVID-19. Slightly better. #Neutropenia/thrombocytopenia: Likely secondary to COVID-19. Recommendations: -Pulmonary on board -Continue dexamethasone 6 mg IV/PO daily for 10 days -Continue remdesivir D2 of 5 -Monitor inflammatory markers - ferritin, Ddimer, CRP, LDH, ordered today -Monitor liver function test on Remdesivir -Continue anticoagulation per System Protocol -Prone positioning as possible -Continue ceftriaxone and azithromycin D Close monitoring patient consider transferring to IM, if CRP continues to worsen> 7.5 and patient is transferred to IM, patient will be a candidate for Tocilizumab IV x 1 Will follow Asia Alvarez MD Infectious Diseases Time Lock Expert [facility] M [phone] O [phone] ] Subjective Date of service: 12/22/20 Principal diagnosis: COVID-19 Interval history: Patient remains complaining of shortness of breath, dyspnea on exertion, currently on high flow nasal cannula 100%. Objective - Exam Narrative Exam: General appearance: Alert, anxious, on high flow nasal cannula Eyes: anicteric sclerae, moist conjunctivae; no lid-lag; PERRLA HENT: Normocephalic, Atraumatic; normal external ears, nares open, oropharynx clear. Neck: supple, tracheal midline, no JVD Lungs: Diminished breath sound bilaterally CV: RRR no murmur Abdomen: Soft, non-tender Extremities: no edema, no cyanosis Skin: No rash. Psych: Anxious Neuro: alert and oriented x 3. Moving all extermities - Constitutional Vitals: Vital Signs Temp Pulse Resp BP Pulse Ox 99.1 F 93 H 22 152/83 92 12/22/20 12:56 12/22/20 12:56 12/22/20 12:56 12/22/20 12:56 12/22/20 12:56 Temperature -Last 24 Hours Temperature 99.1 F Temperature 97.8 F Temperature 97.6 F Temperature 97.9 F - Labs CBC & Chem 7: 12/21/20 05:50 12/22/20 05:29 Labs: Abnormal lab results 12/21/20 12/21/20 12/21/20 Range/Units 10:28 16:54 18:24 Sodium 131 L (137-145) mmol/L Chloride 95.2 L (98-107) mmol/L BUN 37 H (7-17) mg/dL Creatinine 1.4 H (0.6-1.2) mg/dL Glucose 417 H (65-100) mg/dL POC Glucose 374 H (70-105) mg/dL Calcium 7.5 L (8.4-10.2) mg/dL AST 82 H (5-40) units/L ALT 69 H (7-56) units/L Alkaline Phosphatase 262 H (35-129) units/L Albumin 3.0 L (3.9-5) g/dL Urine Creatinine (0.1-20.0) mg/dL Coronavirus (PCR) Positive A (Negative) 12/21/20 12/22/20 12/22/20 Range/Units 22:12 03:00 05:29 Sodium (137-145) mmol/L Chloride (98-107) mmol/L BUN 34 H (7-17) mg/dL Creatinine 1.3 H (0.6-1.2) mg/dL Glucose 169 H (65-100) mg/dL POC Glucose 358 H (70-105) mg/dL Calcium 7.5 L (8.4-10.2) mg/dL AST 74 H (5-40) units/L ALT 60 H (7-56) units/L Alkaline Phosphatase 249 H (35-129) units/L Albumin 3.1 L (3.9-5) g/dL Urine Creatinine 117.9 H (0.1-20.0) mg/dL Coronavirus (PCR) (Negative) 12/22/20 Range/Units 08:19 Sodium (137-145) mmol/L Chloride (98-107) mmol/L BUN (7-17) mg/dL Creatinine (0.6-1.2) mg/dL Glucose (65-100) mg/dL POC Glucose 136 H (70-105) mg/dL Calcium (8.4-10.2) mg/dL AST (5-40) units/L ALT (7-56) units/L Alkaline Phosphatase (35-129) units/L Albumin (3.9-5) g/dL Urine Creatinine (0.1-20.0) mg/dL Coronavirus (PCR) (Negative)
[2020-12-22 14:59] LABS: C-Reactive Protein 2.7 mg/dL (0.00-1.30)
[2020-12-22 15:09] LABS: Hepatitis B Surface Antigen Non-Reactive (Negative); Hepatitis C Virus Antibody Non-Reactive (NonReactive)
--- NOTE | 2020-12-22 17:09 | Gastroenterology Progress Note ---
Assessment and Plan - Patient Problems (1) Elevated liver enzymes Current Visit: Yes Status: Acute Plan to address problem: # Elevated liver enzymes - AST 125, ALT 96, Alk phos 323 on admission - Liver enzymes trending down. - no known baseline values. - INR at 1 - likely due to COVID-19 - RUQ US pending. - acute viral hepatitis panel negative. Rec -trend CMP - supportive care and treatment for pneumonia and sepsis per primary team - will sign off. please call with any questions. Subjective Date of service: 12/22/20 Principal diagnosis: COVID-19 Interval history: Patient reports feeling weak. No abdominal pain. Objective - Constitutional Vitals: Temp Pulse Resp BP Pulse Ox 99.1 F 93 H 22 152/83 92 12/22/20 12:56 12/22/20 12:56 12/22/20 12:56 12/22/20 12:56 12/22/20 12:56 General appearance: no acute distress - EENT ENT: hearing intact - Respiratory Respiratory effort: labored - Cardiovascular Rhythm: regular Heart Sounds: Present: S1 & S2 - Gastrointestinal General gastrointestinal: Present: soft, non-tender, non-distended - Neurologic Neurological: alert and oriented x3 - Labs CBC & Chem 7: 12/21/20 05:50 12/22/20 05:29 Labs: Laboratory Results - last 24 hr 12/21/20 12/21/20 12/21/20 16:54 18:24 18:24 D-Dimer Sodium 131 L Potassium 4.8 5.0 Chloride 95.2 L Carbon Dioxide 23 Anion Gap 18 BUN 37 H Creatinine 1.4 H Estimated GFR 47 BUN/Creatinine Ratio 26 Glucose 417 H POC Glucose 374 H Calcium 7.5 L Ferritin Total Bilirubin 0.60 AST 82 H ALT 69 H Alkaline Phosphatase 262 H Lactate Dehydrogenase C-Reactive Protein Total Protein 8.2 Albumin 3.0 L Albumin/Globulin Ratio 0.6 Urine Color Urine Turbidity Urine pH Ur Specific [place] Urine Protein Urine Glucose (UA) Urine Ketones Urine Blood Urine Nitrite Urine Bilirubin Urine Urobilinogen Ur Leukocyte Esterase Urine WBC (Auto) Urine RBC (Auto) U Epithel Cells (Auto) Urine Bacteria (Auto) Urine Mucus Urine Eosinophils Urine Creatinine Urine Sodium Hepatitis A IgM Ab Hep Bs Antigen Hep B Core IgM Ab Hepatitis C Antibody 12/21/20 12/22/20 12/22/20 22:12 03:00 03:00 D-Dimer Sodium Potassium Chloride Carbon Dioxide Anion Gap BUN Creatinine Estimated GFR BUN/Creatinine Ratio Glucose POC Glucose 358 H Calcium Ferritin Total Bilirubin AST ALT Alkaline Phosphatase Lactate Dehydrogenase C-Reactive Protein Total Protein Albumin Albumin/Globulin Ratio Urine Color Yellow Urine Turbidity Clear Urine pH 5.0 Ur Specific [place] 1.019 Urine Protein 100 mg/dl Urine Glucose (UA) 50 Urine Ketones Neg Urine Blood Sm Urine Nitrite Neg Urine Bilirubin Neg Urine Urobilinogen 2.0 Ur Leukocyte Esterase Neg Urine WBC (Auto) 1.0 Urine RBC (Auto) 1.0 U Epithel Cells (Auto) 3.0 Urine Bacteria (Auto) 1+ Urine Mucus Few Urine Eosinophils Urine Creatinine 117.9 H Urine Sodium 67 Hepatitis A IgM Ab Hep Bs Antigen Hep B Core IgM Ab Hepatitis C Antibody 12/22/20 12/22/20 12/22/20 03:00 05:29 06:00 D-Dimer Sodium 137 Potassium 4.0 Chloride 100.9 Carbon Dioxide 26 Anion Gap 14 BUN 34 H Creatinine 1.3 H Estimated GFR 51 BUN/Creatinine Ratio 26 Glucose 169 H POC Glucose Calcium 7.5 L Ferritin Total Bilirubin 0.40 AST 74 H ALT 60 H Alkaline Phosphatase 249 H Lactate Dehydrogenase C-Reactive Protein Total Protein 7.5 Albumin 3.1 L Albumin/Globulin Ratio 0.7 Urine Color Urine Turbidity Urine pH Ur Specific [place] Urine Protein Urine Glucose (UA) Urine Ketones Urine Blood Urine Nitrite Urine Bilirubin Urine Urobilinogen Ur Leukocyte Esterase Urine WBC (Auto) Urine RBC (Auto) U Epithel Cells (Auto) Urine Bacteria (Auto) Urine Mucus Urine Eosinophils None seen Urine Creatinine Urine Sodium Hepatitis A IgM Ab Non-reactive Hep Bs Antigen Non-reactive Hep B Core IgM Ab Non-reactive Hepatitis C Antibody Non-reactive 12/22/20 12/22/20 12/22/20 08:19 14:18 14:18 D-Dimer 159.26 Sodium Potassium Chloride Carbon Dioxide Anion Gap BUN Creatinine Estimated GFR BUN/Creatinine Ratio Glucose POC Glucose 136 H Calcium Ferritin 1295.0 H Total Bilirubin AST ALT Alkaline Phosphatase Lactate Dehydrogenase C-Reactive Protein Total Protein Albumin Albumin/Globulin Ratio Urine Color Urine Turbidity Urine pH Ur Specific [place] Urine Protein Urine Glucose (UA) Urine Ketones Urine Blood Urine Nitrite Urine Bilirubin Urine Urobilinogen Ur Leukocyte Esterase Urine WBC (Auto) Urine RBC (Auto) U Epithel Cells (Auto) Urine Bacteria (Auto) Urine Mucus Urine Eosinophils Urine Creatinine Urine Sodium Hepatitis A IgM Ab Hep Bs Antigen Hep B Core IgM Ab Hepatitis C Antibody 12/22/20 14:18 D-Dimer Sodium Potassium Chloride Carbon Dioxide Anion Gap BUN Creatinine Estimated GFR BUN/Creatinine Ratio Glucose POC Glucose Calcium Ferritin Total Bilirubin AST ALT Alkaline Phosphatase Lactate Dehydrogenase 620 H C-Reactive Protein 2.70 H Total Protein Albumin Albumin/Globulin Ratio Urine Color Urine Turbidity Urine pH Ur Specific [place] Urine Protein Urine Glucose (UA) Urine Ketones Urine Blood Urine Nitrite Urine Bilirubin Urine Urobilinogen Ur Leukocyte Esterase Urine WBC (Auto) Urine RBC (Auto) U Epithel Cells (Auto) Urine Bacteria (Auto) Urine Mucus Urine Eosinophils Urine Creatinine Urine Sodium Hepatitis A IgM Ab Hep Bs Antigen Hep B Core IgM Ab Hepatitis C Antibody
[2020-12-22] MEDS: oxyCODONE /ACETAMINOPHEN 5-325MG TAB PO PRN (20:41)
[2020-12-22] MEDS: guaiFENesin 100 MG/5 ML ORAL LIQD PO PRN (20:41)
[2020-12-22] MEDS: ENOXAPARIN 40 MG/0.4 ML INJ SUB-Q SCH (21:00)
[2020-12-22] MEDS: cefTRIAXone/NS 2 GM/100 ML 2 GM/100 ML BAG IV SCH (21:01)
[2020-12-22] MEDS: AZITHROMYCIN/NS 500 MG/250 ML 500 MG/250 ML BAG IV SCH (21:02)
[2020-12-22] MEDS: REMDESIVIR 100 MG in SODIUM CHLORIDE 0.9% 250ML 250 ML IV SCH (21:26)
[2020-12-22] MEDS: SODIUM CHLORIDE 0.9% 50 ML IVPB IV SCH (21:27)
[2020-12-23] MEDS: SODIUM CHLORIDE 0.9% 1000 ML 1,000 ML IV SCH (02:48)
[2020-12-23] MEDS: INSULIN LISPRO 100 UNIT/ML SUB-Q SCH ×4 (07:30→21:48)
[2020-12-23] MEDS: glipiZIDE 10 MG TAB PO SCH ×2 (08:00→17:09)
--- NOTE | 2020-12-23 08:17 | Progress Note ---
Assessment and Plan Assessment and plan: COVID-19 infection. Acute hypoxic respiratory failure. Diabetes mellitus type 2. Morbid obesity. Elevated LFTs. DVT prophylaxis. 12/21/2020. Follow-up COVID-19 testing. Continue to trend inflammatory markers. Continue dexamethasone. ID and pulmonary consultation pending. Patient currently with 6 L/min O2 FiO2 44%. 12/22/2020. COVID-19 testing found to be positive. Continue to trend inflamma tory markers. Continue dexamethasone. Patient requiring more oxygen with high flow nasal cannula 30 L/min and FiO2 100%. ID and pulmonary following. 12/23/2020. Patient with increasing oxygen requirements with high flow nasal cannula 40 L/min with FiO2 100%. Continue dexamethasone per ID recommendations. We will transfer to [facility] for closer monitoring. History Interval history: No new issues overnight. Hospitalist Physical - Constitutional Vitals: Temp Pulse Resp BP Pulse Ox 98.7 F 94 H 26 H 141/86 91 12/23/20 04:49 12/23/20 04:49 12/23/20 04:49 12/23/20 04:49 12/23/20 07:52 General appearance: Present: no acute distress, well-nourished, obese - EENT Eyes: Present: PERRL, EOM intact ENT: hearing intact, clear oral mucosa, dentition normal - Neck Neck: Present: supple, normal ROM - Respiratory Respiratory effort: normal Respiratory: bilateral: CTA - Cardiovascular Rhythm: regular Heart Sounds: Present: S1 & S2. Absent: gallop, rub - Extremities Extremities: no ischemia, No edema, Full ROM - Abdominal General gastrointestinal: soft, non-tender, non-distended, normal bowel sounds - Integumentary Integumentary: Present: clear, warm, dry - Neurologic Neurologic: CNII-XII intact, moves all extremities HEART Score - HEART Score Troponin: Troponin T < 0.010 ng/mL (0.00-0.029) 12/20/20 19:27 Results - Labs CBC & Chem 7: 12/21/20 05:50 12/22/20 05:29 Labs: Laboratory Last Values WBC 1.6 K/mm3 (4.5-11.0) L* 12/21/20 05:50 RBC 3.40 M/mm3 (3.65-5.03) L 12/21/20 05:50 Hgb 10.8 gm/dl (10.1-14.3) 12/21/20 05:50 Hct 32.7 % (30.3-42.9) D 12/21/20 05:50 MCV 96 fl (79-97) 12/21/20 05:50 MCH 32 pg (28-32) 12/21/20 05:50 MCHC 33 % (30-34) 12/21/20 05:50 RDW 14.3 % (13.2-15.2) 12/21/20 05:50 Plt Count 104 K/mm3 (140-440) L 12/21/20 05:50 Lymph % (Auto) 41.2 % (13.4-35.0) H 12/20/20 19:27 Gillespie % (Auto) 13.2 % (0.0-7.3) H 12/20/20 19:27 Eos % (Auto) 0.1 % (0.0-4.3) 12/20/20 19:27 Baso % (Auto) 0.4 % (0.0-1.8) 12/20/20 19:27 Lymph # (Auto) 1.2 K/mm3 (1.2-5.4) 12/20/20 19:27 Gillespie # (Auto) 0.4 K/mm3 (0.0-0.8) 12/20/20 19:27 Eos # (Auto) 0.0 K/mm3 (0.0-0.4) 12/20/20 19:27 Baso # (Auto) 0.0 K/mm3 (0.0-0.1) 12/20/20 19:27 Add Manual Diff Complete 12/21/20 05:50 Total Counted 50 12/21/20 05:50 Seg Neutrophils % 45.1 % (40.0-70.0) 12/20/20 19:27 Seg Neuts % (Manual) 82.0 % (40.0-70.0) H 12/21/20 05:50 Band Neutrophils % 2.0 % 12/21/20 05:50 Lymphocytes % (Manual) 16.0 % (13.4-35.0) 12/21/20 05:50 Nucleated RBC % Not Reportable 12/21/20 05:50 Seg Neutrophils # 1.3 K/mm3 (1.8-7.7) L 12/20/20 19:27 Seg Neutrophils # Man 1.3 K/mm3 (1.8-7.7) L 12/21/20 05:50 Band Neutrophils # 0.0 K/mm3 12/21/20 05:50 Lymphocytes # (Manual) 0.3 K/mm3 (1.2-5.4) L 12/21/20 05:50 Abs React Lymphs (Man) 0.0 K/mm3 12/21/20 05:50 Monocytes # (Manual) 0.0 K/mm3 (0.0-0.8) 12/21/20 05:50 Eosinophils # (Manual) 0.0 K/mm3 (0.0-0.4) 12/21/20 05:50 Basophils # (Manual) 0.0 K/mm3 (0.0-0.1) 12/21/20 05:50 Metamyelocytes # 0.0 K/mm3 12/21/20 05:50 Myelocytes # 0.0 K/mm3 12/21/20 05:50 Promyelocytes # 0.0 K/mm3 12/21/20 05:50 Blast Cells # 0.0 K/mm3 12/21/20 05:50 WBC Morphology Not Reportable 12/21/20 05:50 Hypersegmented Neuts Not Reportable 12/21/20 05:50 Hyposegmented Neuts Not Reportable 12/21/20 05:50 Hypogranular Neuts Not Reportable 12/21/20 05:50 Smudge Cells Not Reportable 12/21/20 05:50 Toxic Granulation Not Reportable 12/21/20 05:50 Toxic Vacuolation Not Reportable 12/21/20 05:50 Dohle Bodies Not Reportable 12/21/20 05:50 Pelger-Huet Anomaly Not Reportable 12/21/20 05:50 Jair Rods Not Reportable 12/21/20 05:50 Platelet Estimate Consistent w auto 12/21/20 05:50 Clumped Platelets Not Reportable 12/21/20 05:50 Plt Clumps, EDTA Not Reportable 12/21/20 05:50 Large Platelets Not Reportable 12/21/20 05:50 Giant Platelets Not Reportable 12/21/20 05:50 Platelet Satelliting Not Reportable 12/21/20 05:50 Plt Morphology Comment Not Reportable 12/21/20 05:50 RBC Morphology Normal 12/21/20 05:50 Dimorphic RBCs Not Reportable 12/21/20 05:50 Polychromasia Not Reportable 12/21/20 05:50 Hypochromasia Not Reportable 12/21/20 05:50 Poikilocytosis Not Reportable 12/21/20 05:50 Anisocytosis Not Reportable 12/21/20 05:50 Microcytosis Not Reportable 12/21/20 05:50 Macrocytosis Not Reportable 12/21/20 05:50 Spherocytes Not Reportable 12/21/20 05:50 Pappenheimer Bodies Not Reportable 12/21/20 05:50 Sickle Cells Not Reportable 12/21/20 05:50 Target Cells Not Reportable 12/21/20 05:50 Tear Drop Cells Not Reportable 12/21/20 05:50 Ovalocytes Not Reportable 12/21/20 05:50 Helmet Cells Not Reportable 12/21/20 05:50 [place] Bodies Not Reportable 12/21/20 05:50 [place] Rings Not Reportable 12/21/20 05:50 [place] Cells Not Reportable 12/21/20 05:50 Bite Cells Not Reportable 12/21/20 05:50 Crenated Cell Not Reportable 12/21/20 05:50 Elliptocytes Not Reportable 12/21/20 05:50 Acanthocytes (Spur) Not Reportable 12/21/20 05:50 Rouleaux Not Reportable 12/21/20 05:50 Hemoglobin C Crystals Not Reportable 12/21/20 05:50 Schistocytes Not Reportable 12/21/20 05:50 Malaria parasites Not Reportable 12/21/20 05:50 Giorgi Bodies Not Reportable 12/21/20 05:50 Hem Pathologist Commnt No 12/21/20 05:50 PT 13.1 Sec. (12.2-14.9) 12/21/20 05:50 INR 1.01 (0.87-1.13) 12/21/20 05:50 D-Dimer 159.26 ng/mlDDU (0-234) 12/22/20 14:18 Sodium 137 mmol/L (137-145) 12/22/20 05:29 Potassium 4.0 mmol/L (3.6-5.0) 12/22/20 05:29 Chloride 100.9 mmol/L (98-107) 12/22/20 05:29 Carbon Dioxide 26 mmol/L (22-30) 12/22/20 05:29 Anion Gap 14 mmol/L 12/22/20 05:29 BUN 34 mg/dL (7-17) H 12/22/20 05:29 Creatinine 1.3 mg/dL (0.6-1.2) H 12/22/20 05:29 Estimated GFR 51 ml/min 12/22/20 05:29 BUN/Creatinine Ratio 26 % 12/22/20 05:29 Glucose 169 mg/dL (65-100) H 12/22/20 05:29 POC Glucose 493 mg/dL (70-105) H 12/22/20 21:07 Hemoglobin A1c 10.3 % (4-6) H 12/21/20 05:50 Lactic Acid 1.40 mmol/L (0.7-2.0) 12/21/20 05:50 Calcium 7.5 mg/dL (8.4-10.2) L 12/22/20 05:29 Ferritin 1295.0 ng/mL (10.0-200.0) H 12/22/20 14:18 Total Bilirubin 0.40 mg/dL (0.1-1.2) 12/22/20 05:29 AST 74 units/L (5-40) H 12/22/20 05:29 ALT 60 units/L (7-56) H 12/22/20 05:29 Alkaline Phosphatase 249 units/L (35-129) H 12/22/20 05:29 Lactate Dehydrogenase 620 units/L (91-180) H 12/22/20 14:18 Troponin T < 0.010 ng/mL (0.00-0.029) 12/20/20 19:27 C-Reactive Protein 2.70 mg/dL (0.00-1.30) H 12/22/20 14:18 Total Protein 7.5 g/dL (6.3-8.2) 12/22/20 05:29 Albumin 3.1 g/dL (3.9-5) L 12/22/20 05:29 Albumin/Globulin Ratio 0.7 % 12/22/20 05:29 Procalcitonin 0.32 ng/mL (<0.15) 12/20/20 19:43 Urine Color Yellow (Yellow) 12/22/20 03:00 Urine Turbidity Clear (Clear) 12/22/20 03:00 Urine pH 5.0 (5.0-7.0) 12/22/20 03:00 Ur Specific [place] 1.019 (1.003-1.030) 12/22/20 03:00 Urine Protein 100 mg/dl mg/dL (Negative) 12/22/20 03:00 Urine Glucose (UA) 50 mg/dL (Negative) 12/22/20 03:00 Urine Ketones Neg mg/dL (Negative) 12/22/20 03:00 Urine Blood Sm (Negative) 12/22/20 03:00 Urine Nitrite Neg (Negative) 12/22/20 03:00 Urine Bilirubin Neg (Negative) 12/22/20 03:00 Urine Urobilinogen 2.0 mg/dL (<2.0) 12/22/20 03:00 Ur Leukocyte Esterase Neg (Negative) 12/22/20 03:00 Urine WBC (Auto) 1.0 /HPF (0.0-6.0) 12/22/20 03:00 Urine RBC (Auto) 1.0 /HPF (0.0-6.0) 12/22/20 03:00 U Epithel Cells (Auto) 3.0 /HPF (0-13.0) 12/22/20 03:00 Urine Bacteria (Auto) 1+ /HPF (Negative) 12/22/20 03:00 Urine Mucus Few /HPF 12/22/20 03:00 Urine Eosinophils None seen (None Seen) 12/22/20 03:00 Urine Creatinine 117.9 mg/dL (0.1-20.0) H 12/22/20 03:00 Urine Sodium 67 mmol/L 12/22/20 03:00 Coronavirus (PCR) Positive (Negative) A 12/21/20 10:28 Hepatitis A IgM Ab Non-reactive (NonReactive) 12/22/20 06:00 Hep Bs Antigen Non-reactive (Negative) 12/22/20 06:00 Hep B Core IgM Ab Non-reactive (NonReactive) 12/22/20 06:00 Hepatitis C Antibody Non-reactive (NonReactive) 12/22/20 06:00 Microbiology: Microbiology 12/20/20 19:27 Peripheral/Venous Blood Culture - Preliminary NO GROWTH AFTER 48 HOURS 12/20/20 19:43 Peripheral/Venous Blood Culture - Preliminary NO GROWTH AFTER 48 HOURS Curtis/IV: Voiding Method Bedside Commode Active Medications - Current Medications Current Medications: Generic Name Dose Route Start Last Admin Trade Name Freq PRN Reason Stop Dose Admin Acetaminophen 650 mg 12/20/20 23:15 12/22/20 02:26 Acetaminophen 325 Mg Tab PO 650 mg Q4H PRN Administration Pain MILD(1-3)/Fever >100.5/VARGAS Albuterol 2.5 mg 12/21/20 12:00 Albuterol 2.5 Mg/3 Ml Nebu IH Q4HRT PRN Shortness Of Breath Dexamethasone 6 mg 12/21/20 10:00 12/22/20 09:43 Dexamethasone 4 Mg/Ml Vial IV 12/30/20 10:01 6 mg Q24HR TAMEKA Administration Dextrose 50 ml 12/20/20 23:15 Dextrose 50% In Water (25gm) 50 Ml Syringe IV Q30MIN PRN Hypoglycemia Protocol Enoxaparin Sodium 40 mg 12/21/20 22:00 12/22/20 21:00 Enoxaparin 40 Mg/0.4 Ml Inj SUB-Q 40 mg QDAY@2200 TAMEKA Administration Protocol Gabapentin 800 mg 12/21/20 22:00 12/22/20 21:02 Gabapentin 400 Mg Cap PO 800 mg BID TAMEKA Administration Glipizide 10 mg 12/21/20 10:00 12/22/20 16:54 Glipizide 10 Mg Tab PO 10 mg BIDDIAB TAMEKA Administration Guaifenesin 200 mg 12/21/20 16:00 12/22/20 20:41 Guaifenesin 100 Mg/5 Ml Oral Liqd PO 200 mg Q4H PRN Administration Cough Ceftriaxone Sodium 2 gm in 100 mls @ 200 mls/hr 12/21/20 21:00 12/22/20 21:01 Rocephin/Ns 2 Gm/100 Ml IV 200 mls/hr Q24H TAMEKA Administration Protocol Azithromycin 500 mg in 250 mls @ 250 mls/hr 12/21/20 22:00 12/22/20 21:02 Zithromax/Ns IV 250 mls/hr Q24H TAMEKA Administration Protocol Sodium Chloride 1,000 mls @ 75 mls/hr 12/21/20 12:00 12/23/20 02:48 Nacl 0.9% 1000 Ml IV 75 mls/hr DIRECT TAMEKA Administration REMDESIVIR 100 mg/ Sodium 250 mls @ 500 mls/hr 12/22/20 21:00 12/22/20 21:26 Chloride IV 12/25/20 21:29 500 mls/hr Q24HR@2100 TAMEKA Administration Insulin Human Lispro 0 unit 12/21/20 07:30 12/22/20 21:26 Insulin Lispro 100 Unit/Ml SUB-Q 8 unit ACHS TAMEKA Administration Protocol Magnesium Hydroxide 30 ml 12/20/20 23:15 Magnesium Hydroxide (Mom) Oral Liqd Udc PO Q4H PRN Constipation Morphine Sulfate 2 mg 12/20/20 23:15 12/22/20 13:19 Morphine 2 Mg/1 Ml Inj IV 2 mg Q4H PRN Administration Pain, Moderate (4-6) Ondansetron HCl 4 mg 12/20/20 23:15 Ondansetron 4 Mg/2 Ml Inj IV Q8H PRN Nausea And Vomiting Oxycodone/Acetaminophen 1 tab 12/21/20 16:00 12/22/20 20:41 Oxycodone /Acetaminophen 5-325mg Tab PO 1 tab Q6H PRN Administration Pain, Moderate (4-6) Sodium Chloride 10 ml 12/21/20 10:00 12/22/20 21:02 Sodium Chloride 0.9% 10 Ml Flush Syringe IV 10 ml BID TAMEKA Administration Sodium Chloride 10 ml 12/20/20 23:15 12/21/20 18:48 Sodium Chloride 0.9% 10 Ml Flush Syringe IV 10 ml PRN PRN Administration LINE FLUSH Sodium Chloride 50 ml 12/21/20 17:30 12/22/20 21:27 Sodium Chloride 0.9% 50 Ml Ivpb IV 12/25/20 21:01 50 ml Q24HR@2100 TAMEKA Administration Sodium Chloride 1 applic 12/22/20 12:00 12/22/20 21:01 Garrett Saline Nasal Gel 14.1 Gm NS 1 applic BID TAMEKA Administration Nutrition/Malnutrition Assess - Dietary Evaluation Nutrition/Malnutrition Findings: Nutrition Notes Start: 12/21/20 09:35 Freq: Status: Active Protocol: Document 12/21/20 09:35 AT (Rec: 12/21/20 09:37 AT [id number]) Co-Sign 12/21/20 09:35 LP Nutrition Notes Need for Assessment generated from: a p supervisor Initial or Follow up Brief Note Current Diagnosis Diabetes,Hypertension, Respiratory Failure Other Pertinent Diagnosis pneu, COVID PUI, SOB, Diabetic Neuropathy Current Diet Cardiac/Consistent CHO Labs/Tests Na 132 K 5.7 BUN 33 Cr 1.7 BG 500 A1c 10.3% Ca 7.7 Pertinent Medications Decadron Glucotrol Glucophage Humalog Height 5 ft 7 in Weight 142.882 kg [place] Body Weight (kg) 61.36 BMI 49.3 Subjective/Other Information Consult for skin risk, but found no wounds. Pt has a Wayne Score of 21 with no integumentary symptoms. Couldn 't reach pt by phone x2. RN confirmed pt had no wounds. Per RN, pt has poor appetite and consumed between 20-30% of breakfast this morning. Percent of energy/protein needs met: 25%/26% Burn Absent Trauma Absent GI Symptoms None Minimum of two criteria No physical signs of malnutrition #1 Nutrition Diagnosis Inadequate oral intake Etiology chronic illness As Evidenced by Signs and Symptoms pt consuming 20-30% of breakfast Is patient on ventilator? No Is Patient Ambulatory and/or Out of Bed Yes REE-([facility]-ambulatory/OOB) [ 2673.372 [id number]] Kcal/Kg value to use for calculation 14 Approximate Energy Requirements Using 2000 kcal/Kg Calculation Used for Recommendations Kcal/kg Additional Notes PRO needs: 82-102g (0.8-1g/kg AdBW 102 kg) Fluid needs: 1 mL/kcal or per MD Nutrition Intervention Change Diet Order: Continue current diet as ordered Add Supplement/Snack (indicate name/kcal Ensure High Protein BID /protein ) Provides kCal: 320 Provides Protein (gm) 32 Goal #1 Meet at least 75% of energy and protein needs via diet and ONS Anticipated Discharge Needs: Cardiac/Consistent CHO Follow-Up By: 12/23/20 Additional Comments F/U for intakes, ONS tolerance , diet education needs
--- NOTE | 2020-12-23 09:17 | Progress Note ---
Assessment and Plan 1. Acute kidney injury: HOMA in the setting of vasomotor insult vs Covid infection. Renal US ordered. Monitor renal function. Creatinine level is better. Avoid nephrotoxic agents. Meds dosage based on GFR. 2. FEN: Hyperkalemia, improved, monitor. Monitor volume status and lytes. 3. Covid infection: Isolation, follow inflammatory markers. Followed by ID. 4. Acute on chronic hypoxemic respiratory failure, POA: 2/2 COVID infection. CXR showed mild patchy parenchymal opacities bilaterally. On HFNC O2. 5. DM type 2: SSI. Monitor bl sugar. 6. HTN: Monitor BP. Adjust meds as needed. 7. Leukopenia: Monitor. 8. Elevated Transaminases: Trend. Subjective: Patient was seen and examined at the bedside. Doing ok. Objective: General appearance: well-developed, appears stated age, morbidly obese, not in distress HEENT: ATNC, JENNIFER Neck: trachea midline Respiratory: diminished breath sounds Heart: regular, S1S2, no murmur Gastrointestinal: soft, normoactive bowel sounds, not tender Integumentary: no obvious rash Ext: no edema Neurologic: AO, able to move extremities Subjective Date of service: 12/23/20 Principal diagnosis: COVID-19 Objective - Vital Signs Vital signs: Vital Signs - 12hr 12/22/20 12/23/20 12/23/20 22:00 02:00 04:49 Temperature 98.2 F 98.7 F Pulse Rate 87 94 H Respiratory 22 26 H Rate Blood Pressure 154/84 141/86 O2 Sat by Pulse 95 91 89 Oximetry 12/23/20 07:52 Temperature Pulse Rate Respiratory Rate Blood Pressure O2 Sat by Pulse 91 Oximetry - Lab 12/23/20 14:09 12/23/20 14:09 Most recent lab results Calcium 7.5 mg/dL (8.4-10.2) L 12/22/20 05:29 Urine Creatinine 117.9 mg/dL (0.1-20.0) H 12/22/20 03:00 Urine Sodium 67 mmol/L 12/22/20 03:00 Medications & Allergies - Medications Allergies/Adverse Reactions: Allergies No Known Allergies Allergy (Verified 12/29/14 22:38) Home Medications: Home Medications Medication Instructions Recorded Confirmed Last Taken Type Cyclobenzaprine [Flexeril 10 MG 10 mg PO QHS PRN 12/21/20 12/21/20 Unknown History TAB] Gabapentin [Neurontin] 800 mg PO TID 12/21/20 12/21/20 12/20/20 History metFORMIN [Glucophage] 1,000 mg PO BID 12/21/20 12/21/20 12/20/20 History traMADoL [Ultram 50 MG tab] 50 mg PO BID PRN MDD 100 12/21/20 12/21/20 Unknown History Active Medications: Generic Name Dose Route Start Last Admin Trade Name Freq PRN Reason Stop Dose Admin Acetaminophen 650 mg 12/20/20 23:15 12/22/20 02:26 Acetaminophen 325 Mg Tab PO 650 mg Q4H PRN Administration Pain MILD(1-3)/Fever >100.5/VARGAS Albuterol 2.5 mg 12/21/20 12:00 Albuterol 2.5 Mg/3 Ml Nebu IH Q4HRT PRN Shortness Of Breath Dexamethasone 6 mg 12/21/20 10:00 12/22/20 09:43 Dexamethasone 4 Mg/Ml Vial IV 12/30/20 10:01 6 mg Q24HR TAMEKA Administration Dextrose 50 ml 12/20/20 23:15 Dextrose 50% In Water (25gm) 50 Ml Syringe IV Q30MIN PRN Hypoglycemia Protocol Enoxaparin Sodium 40 mg 12/21/20 22:00 12/22/20 21:00 Enoxaparin 40 Mg/0.4 Ml Inj SUB-Q 40 mg QDAY@2200 TAMEKA Administration Protocol Gabapentin 800 mg 12/21/20 22:00 12/22/20 21:02 Gabapentin 400 Mg Cap PO 800 mg BID TAMEKA Administration Glipizide 10 mg 12/21/20 10:00 12/22/20 16:54 Glipizide 10 Mg Tab PO 10 mg BIDDIAB TAMEKA Administration Guaifenesin 200 mg 12/21/20 16:00 12/22/20 20:41 Guaifenesin 100 Mg/5 Ml Oral Liqd PO 200 mg Q4H PRN Administration Cough Ceftriaxone Sodium 2 gm in 100 mls @ 200 mls/hr 12/21/20 21:00 12/22/20 21:01 Rocephin/Ns 2 Gm/100 Ml IV 200 mls/hr Q24H TAMEKA Administration Protocol Azithromycin 500 mg in 250 mls @ 250 mls/hr 12/21/20 22:00 12/22/20 21:02 Zithromax/Ns IV 250 mls/hr Q24H TAMEKA Administration Protocol Sodium Chloride 1,000 mls @ 75 mls/hr 12/21/20 12:00 12/23/20 02:48 Nacl 0.9% 1000 Ml IV 75 mls/hr DIRECT TAMEKA Administration REMDESIVIR 100 mg/ Sodium 250 mls @ 500 mls/hr 12/22/20 21:00 12/22/20 21:26 Chloride IV 12/25/20 21:29 500 mls/hr Q24HR@2100 TAMEKA Administration Insulin Human Lispro 0 unit 12/21/20 07:30 12/22/20 21:26 Insulin Lispro 100 Unit/Ml SUB-Q 8 unit ACHS TAMEKA Administration Protocol Magnesium Hydroxide 30 ml 12/20/20 23:15 Magnesium Hydroxide (Mom) Oral Liqd Udc PO Q4H PRN Constipation Morphine Sulfate 2 mg 12/20/20 23:15 12/22/20 13:19 Morphine 2 Mg/1 Ml Inj IV 2 mg Q4H PRN Administration Pain, Moderate (4-6) Ondansetron HCl 4 mg 12/20/20 23:15 Ondansetron 4 Mg/2 Ml Inj IV Q8H PRN Nausea And Vomiting Oxycodone/Acetaminophen 1 tab 12/21/20 16:00 12/22/20 20:41 Oxycodone /Acetaminophen 5-325mg Tab PO 1 tab Q6H PRN Administration Pain, Moderate (4-6) Sodium Chloride 10 ml 12/21/20 10:00 12/22/20 21:02 Sodium Chloride 0.9% 10 Ml Flush Syringe IV 10 ml BID [place] Administration Sodium Chloride 10 ml 12/20/20 23:15 12/21/20 18:48 Sodium Chloride 0.9% 10 Ml Flush Syringe IV 10 ml PRN PRN Administration LINE FLUSH Sodium Chloride 50 ml 12/21/20 17:30 12/22/20 21:27 Sodium Chloride 0.9% 50 Ml Ivpb IV 12/25/20 21:01 50 ml [id number] TAME[place] Administration Sodium Chloride 1 applic 12/22/20 12:00 12/22/20 21:01 [place] Saline Nasal Gel 14.1 Gm NS 1 applic BID [place]AME[place] Administration
[2020-12-23] MEDS: dexAMETHasone 4 MG/ML VIAL IV SCH (09:44)
[2020-12-23] MEDS: GABAPENTIN 400 MG CAP PO SCH ×2 (10:00→21:00)
[2020-12-23] MEDS: AYR SALINE NASAL GEL 14.1 GM NS SCH (10:00)
[2020-12-23] MEDS: MORPHINE 2 MG/1 ML INJ IV PRN ×2 (10:23→20:58)
--- NOTE | 2020-12-23 13:54 | Progress Note ---
Assessment and Plan Cultures: Blood culture no growth today SARS-CoV-2 PCR positive Assessment: 55-year-old female with history, diabetes mellitus, morbid obesity, admitted on 12/20/2020 secondary to a week history of cough, generalized malaise, fever, chills, progressive shortness of breath: #Acute sepsis: Likely secondary to severe COVID-19 pneumonia. #Severe COVID-19 pneumonia: Inflammatory markers elevated. D-dimer 260. Ferritin 1420. LDH 491. CRP 5.5. Chest x-ray with bilateral patchy infiltrates. Procalcitonin is slightly up in the setting of HOMA. #Acute hypoxemic respiratory failure: Worsening 100% FiO2 high flow nasal cannula. #Elevated creatinine: Likely secondary to COVID-19. Improving. #Elevated LFTs: Likely secondary to COVID-19. Improving. #Neutropenia/thrombocytopenia: Likely secondary to COVID-19. Recommendations: -Pulmonary on board -Continue dexamethasone 6 mg IV/PO daily for 10 days -Continue remdesivir D3 of 5 -Monitor inflammatory markers - ferritin, Ddimer, CRP, LDH, ordered today -Monitor liver function test on Remdesivir -Continue anticoagulation per System Protocol -Prone positioning as possible -Continue ceftriaxone and azithromycin D Close monitoring patient consider transferring to [facility] Will follow Asia Alvarez MD Infectious Diseases Commissions Specialist [facility] ([facility] M [phone] O [phone] ] Subjective Date of service: 12/23/20 Principal diagnosis: COVID-19 Interval history: Remains debilitated, feels tired, complaining of shortness of breath and dyspnea on exertion, on high flow nasal cannula 100%. Objective - Exam Narrative Exam: Physical exam deferred to minimize COVID-19 transmission during pandemic. - Constitutional Vitals: Vital Signs Temp Pulse Resp BP Pulse Ox 98.7 F 94 H 26 H 141/86 91 12/23/20 04:49 12/23/20 04:49 12/23/20 04:49 12/23/20 04:49 12/23/20 07:52 Temperature -Last 24 Hours Temperature 98.7 F Temperature 98.2 F Temperature 98.5 F - Labs CBC & Chem 7: 12/21/20 05:50 12/22/20 05:29 Labs: Abnormal lab results 12/22/20 12/22/20 12/22/20 Range/Units 11:18 14:18 14:18 POC Glucose 132 H (70-105) mg/dL Ferritin 1295.0 H (10.0-200.0) ng/mL Lactate Dehydrogenase 620 H (91-180) units/L C-Reactive Protein 2.70 H (0.00-1.30) mg/dL 12/22/20 12/22/20 12/23/20 Range/Units 16:36 21:07 08:09 POC Glucose 440 H 493 H 156 H (70-105) mg/dL Ferritin (10.0-200.0) ng/mL Lactate Dehydrogenase (91-180) units/L C-Reactive Protein (0.00-1.30) mg/dL 12/23/20 Range/Units 11:30 POC Glucose 185 H (70-105) mg/dL Ferritin (10.0-200.0) ng/mL Lactate Dehydrogenase (91-180) units/L C-Reactive Protein (0.00-1.30) mg/dL
[2020-12-23 14:47] LABS: Hematocrit 32.6 % (30.3-42.9); Mean Corpuscular HGB Conc 34 % (30-34); Mean Corpuscular Volume 95 fl (79-97); Platelet Count 114 K/mm3 (140-440); Red Blood Count 3.45 M/mm3 (3.65-5.03); Red Cell Distribution Width 13.7 % (13.2-15.2)
--- NOTE | 2020-12-23 14:54 | Ultrasound Report ---
LIMITED RUQ ABDOMINAL ULTRASOUND INDICATION / CLINICAL INFORMATION: elevated liver enzymes. COMPARISON: No relevant prior imaging study available. FINDINGS: PANCREAS: Visualized portions of the pancreas are within normal limits. ABDOMINAL AORTA: No significant abnormality. IVC: No significant abnormality. LIVER: The liver measures 20.5 cm in length. The liver demonstrates increased echogenicity, compatib le with fatty infiltration. No focal hepatic lesion. PORTAL VEIN: Normal hepatopedal blood flow in the main portal vein. GALLBLADDER: Wall echo shadow sign, likely reflecting multiple stones in a contracted gallbladder. Fu rther evaluation is limited due to shadowing and incomplete distention. BILE DUCTS: No significant abnormality. Common bile duct measures 4-5 mm. RIGHT KIDNEY: No significant abnormality visualized. FREE FLUID: None. ADDITIONAL FINDINGS: None. IMPRESSION: 1. Fatty infiltration of the liver with hepatomegaly. 2. Multiple stones in a contracted gallbladder. Gallbladder is not further evaluated due to incomplet e distention and shadowing. If there is concern for cholecystitis, consider further evaluation with H NEL scan. Signer Name: Evgeny Sun MD Signed: 12/23/2020 2:50 PM Workstation Name: [id number]
[2020-12-23 15:05] LABS: Alanine Aminotransferase 51 units/L (7-56); BUN/Creatinine Ratio 21; Blood Urea Nitrogen 19 mg/dL (7-17); Calcium 7.4 mg/dL (8.4-10.2); Hemolysis Index 0
[2020-12-23 17:34] LABS: Total Cells Counted 100
[2020-12-23 17:36] LABS: Band Neutrophils # (Manual) 0.1 K/mm3
[2020-12-23 17:37] LABS: Platelet Estimate Consistent w Auto; RBC Morphology Normal
--- NOTE | 2020-12-23 18:07 | Progress Note ---
Assessment and Plan Imp: 1. Covid-19 2. Viral pneumonia 3. Acute respiratory failure, hypoxia 4. Morbid obesity 5. HOMA 6. Leukopenia/Thrombocytopenia, presumably due to Covid-19 7. ILD on 07/2020 CT chest Rec: 1. Patient with underlying chronic ILD of ? etiology seen on CT chest 07/2020 from [facility]; given that she is teetering on bring of intubation will change her to Solumedrol 60mg IV [id number] 2. Cont. Remsdesivir 3. Cont. Lovenox; D-dimer not suggestive of VTE 4. BIPAP prn, alternating with HFNC; d/w RN and RT that she needs to prone when on HFNC 5. ABX per ID 6. Monitor CBC, LFTs, inflammatory markers, etc. 7. Complex decision-making with prognosis guarded Plan of care reviewed w/ patient, she understands/agrees Subjective Date of service: 12/23/20 Principal diagnosis: COVID-19 Interval history: Developed increased hypoxia with exertion despite HFNC, placed on BIPAP with improvement and transferred to IMCU. Patient awake, alert, with stable SOB and no other current complaints. Active Medications Acetaminophen (Acetaminophen 325 Mg Tab) 650 mg PO Q4H PRN PRN Reason: Pain MILD(1-3)/Fever >100.5/VARGAS Last Admin: 12/22/20 02:26 Dose: 650 mg Documented by: Albuterol (Albuterol 2.5 Mg/3 Ml Nebu) 2.5 mg IH Q4HRT PRN PRN Reason: Shortness Of Breath Dexamethasone (Dexamethasone 4 Mg/Ml Vial) 6 mg IV Q24HR [facility] Stop: 12/30/20 10:01 Last Admin: 12/23/20 09:44 Dose: 6 mg Documented by: Dextrose (Dextrose 50% In Water (25gm) 50 Ml Syringe) 50 ml IV Q30MIN PRN; Protocol PRN Reason: Hypoglycemia Enoxaparin Sodium (Enoxaparin 40 Mg/0.4 Ml Inj) 40 mg SUB-Q QDAY@2200 [facility]; Protocol Last Admin: 12/23/20 21:00 Dose: 40 mg Documented by: Gabapentin (Gabapentin 400 Mg Cap) 800 mg PO BID [facility] Last Admin: 12/23/20 21:00 Dose: 800 mg Documented by: Glipizide (Glipizide 10 Mg Tab) 10 mg PO BIDDIAB [facility] Last Admin: 12/23/20 17:09 Dose: 10 mg Documented by: Guaifenesin (Guaifenesin 100 Mg/5 Ml Oral Liqd) 200 mg PO Q4H PRN PRN Reason: Cough Last Admin: 12/22/20 20:41 Dose: 200 mg Documented by: Ceftriaxone Sodium (Rocephin/Ns 2 Gm/100 Ml) 2 gm in 100 mls @ 200 mls/hr IV Q24H [facility]; Protocol Last Admin: 12/23/20 20:59 Dose: 200 mls/hr Documented by: Azithromycin (Zithromax/Ns) 500 mg in 250 mls @ 250 mls/hr IV Q24H [facility]; Protocol Last Admin: 12/22/20 21:02 Dose: 250 mls/hr Documented by: REMDESIVIR 100 mg/ Sodium (Chloride) 250 mls @ 500 mls/hr IV Q24HR@2100 [facility] Stop: 12/25/20 21:29 Last Admin: 12/23/20 20:59 Dose: 500 mls/hr Documented by: Insulin Human Lispro (Insulin Lispro 100 Unit/Ml) 0 unit SUB-Q ACHS [facility]; Protocol Last Admin: 12/23/20 16:30 Dose: 4 unit Documented by: Lorazepam (Lorazepam 2 Mg/Ml Vial) 0.5 mg IV Q6H PRN PRN Reason: Anxiety Magnesium Hydroxide (Magnesium Hydroxide (Mom) Oral Liqd Udc) 30 ml PO Q4H PRN PRN Reason: Constipation Morphine Sulfate (Morphine 2 Mg/1 Ml Inj) 2 mg IV Q4H PRN PRN Reason: Pain, Moderate (4-6) Last Admin: 12/23/20 20:58 Dose: 2 mg Documented by: Ondansetron HCl (Ondansetron 4 Mg/2 Ml Inj) 4 mg IV Q8H PRN PRN Reason: Nausea And Vomiting Oxycodone/Acetaminophen (Oxycodone /Acetaminophen 5-325mg Tab) 1 tab PO Q6H PRN PRN Reason: Pain, Moderate (4-6) Last Admin: 12/22/20 20:41 Dose: 1 tab Documented by: Sodium Chloride (Sodium Chloride 0.9% 10 Ml Flush Syringe) 10 ml IV BID [facility] Last Admin: 12/23/20 21:00 Dose: 10 ml Documented by: Sodium Chloride (Sodium Chloride 0.9% 10 Ml Flush Syringe) 10 ml IV PRN PRN PRN Reason: LINE FLUSH Last Admin: 12/21/20 18:48 Dose: 10 ml Documented by: Sodium Chloride (Sodium Chloride 0.9% 50 Ml Ivpb) 50 ml IV Q24HR@2100 [facility] Stop: 12/25/20 21:01 Last Admin: 12/23/20 20:59 Dose: 50 ml Documented by: Sodium Chloride ([place] Saline Nasal Gel 14.1 Gm) 1 applic NS BID [facility] Last Admin: 12/23/20 10:00 Dose: 1 applic Documented by: Objective Vital Signs - 12hr 12/23/20 12/23/20 12/23/20 07:52 13:42 15:08 Pulse Rate 88 Respiratory 43 H 32 H Rate O2 Sat by Pulse 91 93 93 Oximetry Vital Signs - 24 hr 12/22/20 12/23/20 12/23/20 22:00 02:00 04:49 Temperature 98.2 F 98.7 F Pulse Rate 87 94 H Respiratory 22 26 H Rate Blood Pressure 154/84 141/86 O2 Sat by Pulse 95 91 89 Oximetry 12/23/20 12/23/20 12/23/20 07:52 13:42 15:08 Temperature Pulse Rate 88 Respiratory 43 H 32 H Rate Blood Pressure O2 Sat by Pulse 91 93 93 Oximetry 12/23/20 20:00 Temperature 97.6 F Pulse Rate Respiratory Rate Blood Pressure O2 Sat by Pulse Oximetry Constitutional: no acute distress, alert (obese), other (on BIPAP) Eyes: non-icteric ENT: oropharynx moist Neck: supple Effort: normal Ascultation: Bilateral: diminished breath sounds (anteriorly) Cardiovascular: regular rate and rhythm (no mrg) Gastrointestinal: normoactive bowel sounds, soft, non-tender, non-distended Integumentary: normal Extremities: no cyanosis, no edema, pink and warm Neurologic: normal mental status, non-focal exam Psychiatric: mood appropriate, affect normal CBC and BMP: 12/23/20 14:09 12/23/20 14:09 ABG, PT/INR, D-dimer: PT/INR, D-dimer PT 13.1 Sec. (12.2-14.9) 12/21/20 05:50 INR 1.01 (0.87-1.13) 12/21/20 05:50 D-Dimer 159.26 ng/mlDDU (0-234) 12/22/20 14:18 Abnormal lab findings: Abnormal Labs 12/20/20 12/20/20 12/20/20 19:27 19:27 19:27 WBC 2.9 L RBC Plt Count 116 L Lymph % (Auto) 41.2 H [place] % (Auto) 13.2 H Seg Neuts % (Manual) Lymphocytes % (Manual) Nucleated RBC % Seg Neutrophils # 1.3 L Seg Neutrophils # Man Lymphocytes # (Manual) D-Dimer 260.58 H Sodium 135 L Potassium Chloride 96.1 L BUN 23 H Creatinine 1.4 H Glucose 295 H POC Glucose Hemoglobin A1c Calcium 8.3 L Ferritin AST 125 H ALT 96 H Alkaline Phosphatase 323 H Lactate Dehydrogenase C-Reactive Protein Total Protein 8.7 H Albumin 3.7 L Urine Creatinine Coronavirus (PCR) 12/20/20 12/20/20 12/21/20 19:43 19:43 05:50 WBC RBC Plt Count Lymph % (Auto) [place] % (Auto) Seg Neuts % (Manual) Lymphocytes % (Manual) Nucleated RBC % Seg Neutrophils # Seg Neutrophils # Man Lymphocytes # (Manual) D-Dimer Sodium Potassium Chloride BUN Creatinine Glucose 297 H POC Glucose Hemoglobin A1c 10.3 H Calcium Ferritin 1420.0 H AST ALT Alkaline Phosphatase Lactate Dehydrogenase 491 H C-Reactive Protein 5.50 H Total Protein Albumin Urine Creatinine Coronavirus (PCR) 12/21/20 12/21/20 12/21/20 05:50 05:50 08:04 WBC 1.6 L* RBC 3.40 L Plt Count 104 L Lymph % (Auto) [place] % (Auto) Seg Neuts % (Manual) 82.0 H Lymphocytes % (Manual) Nucleated RBC % Seg Neutrophils # Seg Neutrophils # Man 1.3 L Lymphocytes # (Manual) 0.3 L D-Dimer Sodium 132 L Potassium 5.7 H D Chloride 95.7 L BUN 33 H Creatinine 1.7 H Glucose 500 H POC Glucose 483 H Hemoglobin A1c Calcium 7.7 L Ferritin AST ALT Alkaline Phosphatase Lactate Dehydrogenase C-Reactive Protein Total Protein Albumin Urine Creatinine Coronavirus (PCR) 12/21/20 12/21/20 12/21/20 10:28 12:05 16:54 WBC RBC Plt Count Lymph % (Auto) [place] % (Auto) Seg Neuts % (Manual) Lymphocytes % (Manual) Nucleated RBC % Seg Neutrophils # Seg Neutrophils # Man Lymphocytes # (Manual) D-Dimer Sodium Potassium Chloride BUN Creatinine Glucose POC Glucose 482 H 374 H Hemoglobin A1c Calcium Ferritin AST ALT Alkaline Phosphatase Lactate Dehydrogenase C-Reactive Protein Total Protein Albumin Urine Creatinine Coronavirus (PCR) Positive A 12/21/20 12/21/20 12/22/20 18:24 22:12 03:00 WBC RBC Plt Count Lymph % (Auto) [place] % (Auto) Seg Neuts % (Manual) Lymphocytes % (Manual) Nucleated RBC % Seg Neutrophils # Seg Neutrophils # Man Lymphocytes # (Manual) D-Dimer Sodium 131 L Potassium Chloride 95.2 L BUN 37 H Creatinine 1.4 H Glucose 417 H POC Glucose 358 H Hemoglobin A1c Calcium 7.5 L Ferritin AST 82 H ALT 69 H Alkaline Phosphatase 262 H Lactate Dehydrogenase C-Reactive Protein Total Protein Albumin 3.0 L Urine Creatinine 117.9 H Coronavirus (PCR) 12/22/20 12/22/20 12/22/20 05:29 08:19 11:18 WBC RBC Plt Count Lymph % (Auto) [place] % (Auto) Seg Neuts % (Manual) Lymphocytes % (Manual) Nucleated RBC % Seg Neutrophils # Seg Neutrophils # Man Lymphocytes # (Manual) D-Dimer Sodium Potassium Chloride BUN 34 H Creatinine 1.3 H Glucose 169 H POC Glucose 136 H 132 H Hemoglobin A1c Calcium 7.5 L Ferritin AST 74 H ALT 60 H Alkaline Phosphatase 249 H Lactate Dehydrogenase C-Reactive Protein Total Protein Albumin 3.1 L Urine Creatinine Coronavirus (PCR) 12/22/20 12/22/20 12/22/20 14:18 14:18 16:36 WBC RBC Plt Count Lymph % (Auto) [place] % (Auto) Seg Neuts % (Manual) Lymphocytes % (Manual) Nucleated RBC % Seg Neutrophils # Seg Neutrophils # Man Lymphocytes # (Manual) D-Dimer Sodium Potassium Chloride BUN Creatinine Glucose POC Glucose 440 H Hemoglobin A1c Calcium Ferritin 1295.0 H AST ALT Alkaline Phosphatase Lactate Dehydrogenase 620 H C-Reactive Protein 2.70 H Total Protein Albumin Urine Creatinine Coronavirus (PCR) 12/22/20 12/23/20 12/23/20 21:07 08:09 11:30 WBC RBC Plt Count Lymph % (Auto) [place] % (Auto) Seg Neuts % (Manual) Lymphocytes % (Manual) Nucleated RBC % Seg Neutrophils # Seg Neutrophils # Man Lymphocytes # (Manual) D-Dimer Sodium Potassium Chloride BUN Creatinine Glucose POC Glucose 493 H 156 H 185 H Hemoglobin A1c Calcium Ferritin AST ALT Alkaline Phosphatase Lactate Dehydrogenase C-Reactive Protein Total Protein Albumin Urine Creatinine Coronavirus (PCR) 12/23/20 12/23/20 14:09 14:09 WBC 1.8 L* RBC 3.45 L Plt Count 114 L Lymph % (Auto) [place] % (Auto) Seg Neuts % (Manual) 87.0 H Lymphocytes % (Manual) 3.0 L Nucleated RBC % 1.0 H Seg Neutrophils # Seg Neutrophils # Man 1.6 L Lymphocytes # (Manual) 0.1 L D-Dimer Sodium Potassium Chloride BUN 19 H Creatinine Glucose 292 H POC Glucose Hemoglobin A1c Calcium 7.4 L Ferritin AST 71 H ALT Alkaline Phosphatase 264 H Lactate Dehydrogenase C-Reactive Protein Total Protein Albumin 3.0 L Urine Creatinine Coronavirus (PCR) Chest x-ray: report reviewed, image reviewed
[2020-12-23] MEDS: REMDESIVIR 100 MG in SODIUM CHLORIDE 0.9% 250ML 250 ML IV SCH (20:59)
[2020-12-23] MEDS: cefTRIAXone/NS 2 GM/100 ML 2 GM/100 ML BAG IV SCH (20:59)
[2020-12-23] MEDS: SODIUM CHLORIDE 0.9% 50 ML IVPB IV SCH (20:59)
[2020-12-23] MEDS: ENOXAPARIN 40 MG/0.4 ML INJ SUB-Q SCH (21:00)
[2020-12-23] MEDS: methylPREDNISolone Sod Succinate 125 MG/2 ML INJ IV SCH (21:48)
--- NOTE | 2020-12-24 07:22 | Ultrasound Report ---
ULTRASOUND RENAL INDICATION / CLINICAL INFORMATION: Acute renal failure.. COMPARISON: None available. FINDINGS: RIGHT KIDNEY: Size: 12.1 cm - Echogenicity: Normal. - Cortical Thickness: Normal. - Hydronephrosis: None. - Cyst or mass: No significant abnormality. - Stones: None seen. LEFT KIDNEY: Size: 12.1 cm - Echogenicity: Normal. - Cortical Thickness: Normal. - Hydronephrosis: None. - Cyst or mass: No significant abnormality. - Stones: None seen. URINARY BLADDER: No significant abnormality. FREE FLUID: None. ADDITIONAL FINDINGS: None. IMPRESSION: No significant sonographic abnormality of the kidneys. Signer Name: Evgeny Sun MD Signed: 12/24/2020 7:17 AM Workstation Name: [id number]
[2020-12-24] MEDS: GABAPENTIN 400 MG CAP PO SCH ×2 (09:40→22:58)
[2020-12-24] MEDS: glipiZIDE 10 MG TAB PO SCH ×2 (09:40→16:13)
[2020-12-24] MEDS: ACETAMINOPHEN 325 MG TAB PO PRN (09:40)
[2020-12-24] MEDS: INSULIN LISPRO 100 UNIT/ML SUB-Q SCH ×4 (09:41→23:06)
[2020-12-24] MEDS: methylPREDNISolone Sod Succinate 125 MG/2 ML INJ IV SCH ×3 (09:54→22:56)
--- NOTE | 2020-12-24 10:39 | Progress Note ---
Assessment and Plan Assessment and plan: Severe COVID-19 pneumonia Acute hypoxic respiratory failure. Diabetes mellitus type 2. Morbid obesity. Elevated LFTs. DVT prophylaxis. 12/21/2020. Follow-up COVID-19 testing. Continue to trend inflammatory markers. Continue dexamethasone. ID and pulmonary consultation pending. Patient currently with 6 L/min O2 FiO2 44%. 12/22/2020. COVID-19 testing found to be positive. Continue to trend in flammatory markers. Continue dexamethasone. Patient requiring more oxygen with high flow nasal cannula 30 L/min and FiO2 100%. ID and pulmonary following. 12/23/2020. Patient with increasing oxygen requirements with high flow nasal cannula 40 L/min with FiO2 100%. Continue dexamethasone per ID recommendations. We will transfer to [facility] for closer monitoring. 12/24/2020. Patient was transferred to [facility] for closer monitoring yesterday. Patient currently requiring BiPAP with IPAP 16 and EPAP of 8 with FiO2 100%. Continue dexamethasone and remdesivir. Continue to trend inflammatory markers. Continue anticoagulation. Prone position as possible. Continue ceftriaxone and azithromycin per ID recommendations. History Interval history: No new issues overnight. Hospitalist Physical - Constitutional Vitals: Temp Pulse Resp BP Pulse Ox 98.6 F 78 37 H 158/85 92 12/24/20 08:00 12/24/20 09:39 12/24/20 09:39 12/24/20 08:31 12/24/20 09:39 General appearance: Present: no acute distress, well-nourished, obese - EENT Eyes: Present: PERRL, EOM intact ENT: hearing intact, clear oral mucosa, dentition normal - Neck Neck: Present: supple, normal ROM - Respiratory Respiratory effort: normal Respiratory: bilateral: CTA - Cardiovascular Rhythm: regular Heart Sounds: Present: S1 & S2. Absent: gallop, rub - Extremities Extremities: no ischemia, No edema, Full ROM - Abdominal General gastrointestinal: soft, non-tender, non-distended, normal bowel sounds - Integumentary Integumentary: Present: clear, warm, dry - Neurologic Neurologic: CNII-XII intact, moves all extremities HEART Score - HEART Score Troponin: Troponin T < 0.010 ng/mL (0.00-0.029) 12/20/20 19:27 Results - Labs CBC & Chem 7: 12/23/20 14:09 12/23/20 14:09 Labs: Laboratory Last Values WBC 1.8 K/mm3 (4.5-11.0) L* 12/23/20 14:09 RBC 3.45 M/mm3 (3.65-5.03) L 12/23/20 14:09 Hgb 11.0 gm/dl (10.1-14.3) 12/23/20 14:09 Hct 32.6 % (30.3-42.9) 12/23/20 14:09 MCV 95 fl (79-97) 12/23/20 14:09 MCH 32 pg (28-32) 12/23/20 14:09 MCHC 34 % (30-34) 12/23/20 14:09 RDW 13.7 % (13.2-15.2) 12/23/20 14:09 Plt Count 114 K/mm3 (140-440) L 12/23/20 14:09 Lymph % (Auto) 41.2 % (13.4-35.0) H 12/20/20 19:27 [place] % (Auto) 13.2 % (0.0-7.3) H 12/20/20 19:27 Eos % (Auto) 0.1 % (0.0-4.3) 12/20/20 19: Baso % (Auto) 0.4 % (0.0-1.8) 12/20/20 19:27 Lymph # (Auto) 1.2 K/mm3 (1.2-5.4) 12/20/20 19: [place] # (Auto) 0.4 K/mm3 (0.0-0.8) 12/20/20 19: Eos # (Auto) 0.0 K/mm3 (0.0-0.4) 12/20/20 19: Baso # (Auto) 0.0 K/mm3 (0.0-0.1) 12/20/20 19: Add Manual Diff Complete 12/23/20 14:09 Total Counted 100 12/23/20 14:09 Seg Neutrophils % 45.1 % (40.0-70.0) 12/20/20 19:27 Seg Neuts % (Manual) 87.0 % (40.0-70.0) H 12/23/20 14:09 Band Neutrophils % 4.0 % 12/23/20 14:09 Lymphocytes % (Manual) 3.0 % (13.4-35.0) L 12/23/20 14:09 Reactive Lymphs % (Man) 1.0 % 12/23/20 14:09 Monocytes % (Manual) 5.0 % (0.0-7.3) 12/23/20 14:09 Nucleated RBC % 1.0 % (0.0-0.9) H 12/23/20 14:09 Seg Neutrophils # 1.3 K/mm3 (1.8-7.7) L 12/20/20 19:27 Seg Neutrophils # Man 1.6 K/mm3 (1.8-7.7) L 12/23/20 14:09 Band Neutrophils # 0.1 K/mm3 12/23/20 14:09 Lymphocytes # (Manual) 0.1 K/mm3 (1.2-5.4) L 12/23/20 14:09 Abs React Lymphs (Man) 0.0 K/mm3 12/23/20 14:09 Monocytes # (Manual) 0.1 K/mm3 (0.0-0.8) 12/23/20 14:09 Eosinophils # (Manual) 0.0 K/mm3 (0.0-0.4) 12/23/20 14:09 Basophils # (Manual) 0.0 K/mm3 (0.0-0.1) 12/23/20 14:09 Metamyelocytes # 0.0 K/mm3 12/23/20 14:09 Myelocytes # 0.0 K/mm3 12/23/20 14:09 Promyelocytes # 0.0 K/mm3 12/23/20 14:09 Blast Cells # 0.0 K/mm3 12/23/20 14:09 WBC Morphology Not Reportable 12/23/20 14:09 Hypersegmented Neuts Not Reportable 12/23/20 14:09 Hyposegmented Neuts Not Reportable 12/23/20 14:09 Hypogranular Neuts Not Reportable 12/23/20 14:09 Smudge Cells Not Reportable 12/23/20 14:09 Toxic Granulation Not Reportable 12/23/20 14:09 Toxic Vacuolation Not Reportable 12/23/20 14:09 Dohle Bodies Not Reportable 12/23/20 14:09 Pelger-Huet Anomaly Not Reportable 12/23/20 14:09 Jair Rods Not Reportable 12/23/20 14:09 Platelet Estimate Consistent w auto 12/23/20 14:09 Clumped Platelets Not Reportable 12/23/20 14:09 Plt Clumps, EDTA Not Reportable 12/23/20 14:09 Large Platelets Not Reportable 12/23/20 14:09 Giant Platelets Not Reportable 12/23/20 14:09 Platelet Satelliting Not Reportable 12/23/20 14:09 Plt Morphology Comment Not Reportable 12/23/20 14:09 RBC Morphology Normal 12/23/20 14:09 Dimorphic RBCs Not Reportable 12/23/20 14:09 Polychromasia Not Reportable 12/23/20 14:09 Hypochromasia Not Reportable 12/23/20 14:09 Poikilocytosis Not Reportable 12/23/20 14:09 Anisocytosis Not Reportable 12/23/20 14:09 Microcytosis Not Reportable 12/23/20 14:09 Macrocytosis Not Reportable 12/23/20 14:09 Spherocytes Not Reportable 12/23/20 14:09 Pappenheimer Bodies Not Reportable 12/23/20 14:09 Sickle Cells Not Reportable 12/23/20 14:09 Target Cells Not Reportable 12/23/20 14:09 Tear Drop Cells Not Reportable 12/23/20 14:09 Ovalocytes Not Reportable 12/23/20 14:09 Helmet Cells Not Reportable 12/23/20 14:09 Foote-Ketchum Bodies Not Reportable 12/23/20 14:09 [place] Rings Not Reportable 12/23/20 14:09 Schaller Cells Not Reportable 12/23/20 14:09 Bite Cells Not Reportable 12/23/20 14:09 Crenated Cell Not Reportable 12/23/20 14:09 Elliptocytes Not Reportable 12/23/20 14:09 Acanthocytes (Spur) Not Reportable 12/23/20 14:09 Rouleaux Not Reportable 12/23/20 14:09 Hemoglobin C Crystals Not Reportable 12/23/20 14:09 Schistocytes Not Reportable 12/23/20 14:09 Malaria parasites Not Reportable 12/23/20 14:09 Giorgi Bodies Not Reportable 12/23/20 14:09 Hem Pathologist Commnt No 12/23/20 14:09 PT 13.1 Sec. (12.2-14.9) 12/21/20 05:50 INR 1.01 (0.87-1.13) 12/21/20 05:50 D-Dimer 159.26 ng/mlDDU (0-234) 12/22/20 14:18 Sodium 137 mmol/L (137-145) 12/23/20 14:09 Potassium 4.3 mmol/L (3.6-5.0) 12/23/20 14:09 Chloride 101.6 mmol/L (98-107) 12/23/20 14:09 Carbon Dioxide 26 mmol/L (22-30) 12/23/20 14:09 Anion Gap 14 mmol/L 12/23/20 14:09 BUN 19 mg/dL (7-17) H 12/23/20 14:09 Creatinine 0.9 mg/dL (0.6-1.2) 12/23/20 14:09 Estimated GFR > 60 ml/min 12/23/20 14:09 BUN/Creatinine Ratio 21 % 12/23/20 14:09 Glucose 292 mg/dL (65-100) H 12/23/20 14:09 POC Glucose 288 mg/dL (70-105) H 12/23/20 21:11 Hemoglobin A1c 10.3 % (4-6) H 12/21/20 05:50 Lactic Acid 1.40 mmol/L (0.7-2.0) 12/21/20 05:50 Calcium 7.4 mg/dL (8.4-10.2) L 12/23/20 14:09 Ferritin 1295.0 ng/mL (10.0-200.0) H 12/22/20 14:18 Total Bilirubin 0.40 mg/dL (0.1-1.2) 12/23/20 14:09 AST 71 units/L (5-40) H 12/23/20 14:09 ALT 51 units/L (7-56) 12/23/20 14:09 Alkaline Phosphatase 264 units/L (35-129) H 12/23/20 14:09 Lactate Dehydrogenase 620 units/L (91-180) H 12/22/20 14:18 Troponin T < 0.010 ng/mL (0.00-0.029) 12/20/20 19:27 C-Reactive Protein 2.70 mg/dL (0.00-1.30) H 12/22/20 14:18 Total Protein 7.3 g/dL (6.3-8.2) 12/23/20 14:09 Albumin 3.0 g/dL (3.9-5) L 12/23/20 14:09 Albumin/Globulin Ratio 0.7 % 12/23/20 14:09 Procalcitonin 0.32 ng/mL (<0.15) 12/20/20 19:43 Urine Color Yellow (Yellow) 12/22/20 03:00 Urine Turbidity Clear (Clear) 12/22/20 03:00 Urine pH 5.0 (5.0-7.0) 12/22/20 03:00 Ur Specific [place] 1.019 (1.003-1.030) 12/22/20 03:00 Urine Protein 100 mg/dl mg/dL (Negative) 12/22/20 03:00 Urine Glucose (UA) 50 mg/dL (Negative) 12/22/20 03:00 Urine Ketones Neg mg/dL (Negative) 12/22/20 03:00 Urine Blood Sm (Negative) 12/22/20 03:00 Urine Nitrite Neg (Negative) 12/22/20 03:00 Urine Bilirubin Neg (Negative) 12/22/20 03:00 Urine Urobilinogen 2.0 mg/dL (<2.0) 12/22/20 03:00 Ur Leukocyte Esterase Neg (Negative) 12/22/20 03:00 Urine WBC (Auto) 1.0 /HPF (0.0-6.0) 12/22/20 03:00 Urine RBC (Auto) 1.0 /HPF (0.0-6.0) 12/22/20 03:00 U Epithel Cells (Auto) 3.0 /HPF (0-13.0) 12/22/20 03:00 Urine Bacteria (Auto) 1+ /HPF (Negative) 12/22/20 03:00 Urine Mucus Few /HPF 12/22/20 03:00 Urine Eosinophils None seen (None Seen) 12/22/20 03:00 Urine Creatinine 117.9 mg/dL (0.1-20.0) H 12/22/20 03:00 Urine Sodium 67 mmol/L 12/22/20 03:00 Coronavirus (PCR) Positive (Negative) A 12/21/20 10:28 Hepatitis A IgM Ab Non-reactive (NonReactive) 12/22/20 06:00 Hep Bs Antigen Non-reactive (Negative) 12/22/20 06:00 Hep B Core IgM Ab Non-reactive (NonReactive) 12/22/20 06:00 Hepatitis C Antibody Non-reactive (NonReactive) 12/22/20 06:00 Microbiology: Microbiology 12/20/20 19:27 Peripheral/Venous Blood Culture - Preliminary NO GROWTH AFTER 72 HOURS 12/20/20 19:43 Peripheral/Venous Blood Culture - Preliminary NO GROWTH AFTER 72 HOURS Curtis/IV: Voiding Method Indwelling Catheter Active Medications - Current Medications Current Medications: Generic Name Dose Route Start Last Admin Trade Name Freq PRN Reason Stop Dose Admin Acetaminophen 650 mg 12/20/20 23:15 12/24/20 09:40 Acetaminophen 325 Mg Tab PO 650 mg Q4H PRN Administration Pain MILD(1-3)/Fever >100.5/VARGAS Albuterol 2.5 mg 12/21/20 12:00 Albuterol 2.5 Mg/3 Ml Nebu IH Q4HRT PRN Shortness Of Breath Dextrose 50 ml 12/20/20 23:15 Dextrose 50% In Water (25gm) 50 Ml Syringe IV Q30MIN PRN Hypoglycemia Protocol Enoxaparin Sodium 40 mg 12/21/20 22:00 12/23/20 21:00 Enoxaparin 40 Mg/0.4 Ml Inj SUB-Q 40 mg QDAY@2200 TAMEKA Administration Protocol Gabapentin 800 mg 12/21/20 22:00 12/24/20 09:40 Gabapentin 400 Mg Cap PO 800 mg BID TAMEKA Administration Glipizide 10 mg 12/21/20 10:00 12/24/20 09:40 Glipizide 10 Mg Tab PO 10 mg BIDDIAB TAMEKA Administration Guaifenesin 200 mg 12/21/20 16:00 12/22/20 20:41 Guaifenesin 100 Mg/5 Ml Oral Liqd PO 200 mg Q4H PRN Administration Cough Ceftriaxone Sodium 2 gm in 100 mls @ 200 mls/hr 12/21/20 21:00 12/23/20 20:59 Rocephin/Ns 2 Gm/100 Ml IV 200 mls/hr Q24H TAMEKA Administration Protocol Azithromycin 500 mg in 250 mls @ 250 mls/hr 12/21/20 22:00 12/22/20 21:02 Zithromax/Ns IV 250 mls/hr Q24H TAMEKA Administration Protocol REMDESIVIR 100 mg/ Sodium 250 mls @ 500 mls/hr 12/22/20 21:00 12/23/20 20:59 Chloride IV 12/25/20 21:29 500 mls/hr Q24HR@2100 TAMEKA Administration Insulin Human Lispro 0 unit 12/21/20 07:30 12/24/20 09:41 Insulin Lispro 100 Unit/Ml SUB-Q 4 unit ACHS TAMEKA Administration Protocol Lorazepam 0.5 mg 12/23/20 20:12 Lorazepam 2 Mg/Ml Vial IV Q6H PRN Anxiety Magnesium Hydroxide 30 ml 12/20/20 23:15 Magnesium Hydroxide (Mom) Oral Liqd Udc PO Q4H PRN Constipation Methylprednisolone Sodium Succinate 60 mg 12/23/20 22:00 12/24/20 09:54 Methylprednisolone Sod Succinate 125 Mg/2 Ml Inj IV 60 mg Q8HR TAMEKA Administration Morphine Sulfate 2 mg 12/20/20 23:15 12/23/20 20:58 Morphine 2 Mg/1 Ml Inj IV 2 mg Q4H PRN Administration Pain, Moderate (4-6) Ondansetron HCl 4 mg 12/20/20 23:15 Ondansetron 4 Mg/2 Ml Inj IV Q8H PRN Nausea And Vomiting Oxycodone/Acetaminophen 1 tab 12/21/20 16:00 12/22/20 20:41 Oxycodone /Acetaminophen 5-325mg Tab PO 1 tab Q6H PRN Administration Pain, Moderate (4-6) Sodium Chloride 10 ml 12/21/20 10:00 12/24/20 09:41 Sodium Chloride 0.9% 10 Ml Flush Syringe IV 10 ml BID TAMEKA Administration Sodium Chloride 10 ml 12/20/20 23:15 12/21/20 18:48 Sodium Chloride 0.9% 10 Ml Flush Syringe IV 10 ml PRN PRN Administration LINE FLUSH Sodium Chloride 50 ml 12/21/20 17:30 12/23/20 20:59 Sodium Chloride 0.9% 50 Ml Ivpb IV 05/15/21 21:01 50 ml Q24HR@2100 TAMEKA Administration Sodium Chloride 1 applic 12/22/20 12:00 12/23/20 10:00 [place] Saline Nasal Gel 14.1 Gm NS 1 applic BID TAMEKA Administration Nutrition/Malnutrition Assess - Dietary Evaluation Nutrition/Malnutrition Findings: Nutrition Notes Start: 12/21/20 09:35 Freq: Status: Active Protocol: Document 12/23/20 08:33 AT (Rec: 12/23/20 08:41 AT [email or web address]) Co-Sign 12/23/20 08:33 MK Nutrition Notes Initial or Follow up Reassessment Current Diagnosis Diabetes,Hypertension, Respiratory Failure Other Pertinent Diagnosis pneu, COVID-19(+), SOB, Diabetic Neuropathy Current Diet NPO Labs/Tests POC BG 493 4 BUN 34 Cr 1.3 Ca 7.5 Pertinent Medications NS at 75 mL/hr Height 5 ft 7 in Weight 142.882 kg [place] Body Weight (kg) 61.36 BMI 49.3 Weight Status Morbidly Obese Subjective/Other Information Follow up for intakes, ONS tolerance, and diet education needs. Pt is NPO at this time and consumed between 25-50% of meals yesterday. Could not reach pt by phone x2. Will continue to follow. Percent of energy/protein needs met: 0%/0% Burn Absent Trauma Absent Current % PO Negligible Minimum of two criteria No physical signs of malnutrition #1 Nutrition Diagnosis Inadequate oral intake Diagnosis Progress(for reassessment Continues documentation) Is patient on ventilator? No Is Patient Ambulatory and/or Out of Bed Yes REE-([facility]-ambulatory/OOB) [ 2673.372 [id number]] Kcal/Kg value to use for calculation 14 Approximate Energy Requirements Using 2000 kcal/Kg Calculation Used for Recommendations Kcal/kg Additional Notes PRO needs: 82-102g (0.8-1g/kg AdBW 102 kg) Fluid needs: 1 mL/kcal or per MD Nutrition Intervention Change Diet Order: Continue current Add Supplement/Snack (indicate name/kcal Ensure High Protein BID /protein ) Provides kCal: 320 Provides Protein (gm) 32 Goal #1 Meet at least 75% of energy and protein needs via diet and ONS Anticipated Discharge Needs: Cardiac/Consistent CHO Follow-Up By: 12/27/20 Additional Comments F/U for stable intakes, ONS tolerance
--- NOTE | 2020-12-24 11:54 | Progress Note ---
Assessment and Plan Cultures: Blood culture no growth today SARS-CoV-2 PCR positive Assessment: 55-year-old female with history, diabetes mellitus, morbid obesity, admitted on 12/20/2020 secondary to a week history of cough, generalized malaise, fever, chills, progressive shortness of breath: #Acute sepsis: Likely secondary to severe COVID-19 pneumonia. #Severe COVID-19 pneumonia: Patient with underlying interstitial lung disease per CT report secondary hospital. Inflammatory markers elevated. D-dimer 260. Ferritin 1420. LDH 491. CRP 5.5. Chest x-ray with bilateral patchy infiltrates. Procalcitonin is slightly up in the setting of HOMA. #Acute hypoxemic respiratory failure: Worsening 100% FiO2 high flow nasal can nula and NR mask. #Elevated creatinine: Likely secondary to COVID-19. Improving. #Elevated LFTs: Likely secondary to COVID-19. Improving. #Neutropenia/thrombocytopenia: Likely secondary to COVID-19. Worsening both thrombocytopenia and neutropenia Recommendations: -Hematology consult worsening neutropenia and thrombocytopenia ? Covid induced autoimmune thrombocytopenia -Check fibrinogen -Pulmonary on board -Continue IV steroids per pulmonary -Continue remdesivir D4 of 5 -Monitor inflammatory markers - ferritin, Ddimer, CRP, LDH -Monitor liver function test on Remdesivir -Continue anticoagulation per System Protocol -Prone positioning as possible -Continue ceftriaxone and azithromycin D4 of 5 Close monitoring patient risk for deterioration including intubation Will follow Asia Alvarez MD Infectious Diseases [employer] [facility] ([facility] M [phone] O [phone] ] Subjective Date of service: 12/24/20 Principal diagnosis: COVID-19 Interval history: Patient feels anxious, on nonrebreather and high flow nasal cannula, complaining of pressure in her head from the straps, currently on 100% FiO2 Objective - Exam Narrative Exam: General appearance: Alert, anxious, on nonrebreather and high flow nasal cannula Eyes: anicteric sclerae, moist conjunctivae; no lid-lag; PERRLA HENT: Normocephalic, Atraumatic; normal external ears, nares open, oropharynx limited Neck: supple, tracheal midline, no JVD Lungs: Bilateral scattered crackles CV: Tachycardic Abdomen: Soft, non-tender Extremities: no edema, no cyanosis Skin: No rash. Psych: no agitated Neuro: alert and oriented x 3. Moving all extermities - Constitutional Vitals: Vital Signs Temp Pulse Resp BP Pulse Ox 98.6 F 70 23 143/98 98 12/24/20 08:00 12/24/20 11:00 12/24/20 11:00 12/24/20 11:00 12/24/20 11:00 Temperature -Last 24 Hours Temperature 98.6 F Temperature 97.7 F Temperature 98.9 F Temperature 97.6 F - Labs CBC & Chem 7: 12/23/20 14:09 12/23/20 14:09 Labs: Abnormal lab results 12/23/20 12/23/20 12/23/20 Range/Units 14:09 14:09 16:26 WBC 1.8 L* (4.5-11.0) K/mm3 RBC 3.45 L (3.65-5.03) M/mm3 Plt Count 114 L (140-440) K/mm3 Seg Neuts % (Manual) 87.0 H (40.0-70.0) % Lymphocytes % (Manual) 3.0 L (13.4-35.0) % Nucleated RBC % 1.0 H (0.0-0.9) % Seg Neutrophils # Man 1.6 L (1.8-7.7) K/mm3 Lymphocytes # (Manual) 0.1 L (1.2-5.4) K/mm3 BUN 19 H (7-17) mg/dL Glucose 292 H (65-100) mg/dL POC Glucose 351 H (70-105) mg/dL Calcium 7.4 L (8.4-10.2) mg/dL AST 71 H (5-40) units/L Alkaline Phosphatase 264 H (35-129) units/L Albumin 3.0 L (3.9-5) g/dL 12/23/20 Range/Units 21:11 WBC (4.5-11.0) K/mm3 RBC (3.65-5.03) M/mm3 Plt Count (140-440) K/mm3 Seg Neuts % (Manual) (40.0-70.0) % Lymphocytes % (Manual) (13.4-35.0) % Nucleated RBC % (0.0-0.9) % Seg Neutrophils # Man (1.8-7.7) K/mm3 Lymphocytes # (Manual) (1.2-5.4) K/mm3 BUN (7-17) mg/dL Glucose (65-100) mg/dL POC Glucose 288 H (70-105) mg/dL Calcium (8.4-10.2) mg/dL AST (5-40) units/L Alkaline Phosphatase (35-129) units/L Albumin (3.9-5) g/dL
--- NOTE | 2020-12-24 13:12 | Progress Note ---
Assessment and Plan 1. Acute kidney injury: HOMA in the setting of vasomotor insult vs Covid infection. Renal US ordered. Monitor renal function. Creatinine level is better. Avoid nephrotoxic agents. Meds dosage based on GFR. 2. FEN: Hyperkalemia, improved, monitor. Monitor volume status and lytes. 3. Covid infection: Isolation, follow inflammatory markers. Followed by ID. 4. Acute on chronic hypoxemic respiratory failure, POA: 2/2 COVID infection. CXR showed mild patchy parenchymal opacities bilaterally. On BIPAP. 5. DM type 2: SSI. Monitor bl sugar. 6. HTN: Monitor BP. Adjust meds as needed. 7. Leukopenia: Monitor. 8. Elevated Transaminases: Trend. Subjective: Patient was seen and examined at the bedside. Patient was transferred to [facility]. Objective: General appearance: well-developed, appears stated age, morbidly obese, on BIPAP HEENT: ATNC, JENNIFER Neck: trachea midline Respiratory: diminished breath sounds Heart: regular, S1S2, no murmur Gastrointestinal: soft, normoactive bowel sounds, not tender Integumentary: no obvious rash Ext: no edema Neurologic: able to move extremities Subjective Date of service: 12/24/20 Principal diagnosis: COVID-19 Objective - Vital Signs Vital signs: Vital Signs - 12hr 12/24/20 12/24/20 12/24/20 01:30 02:00 02:31 Temperature Pulse Rate 74 73 87 Pulse Rate [ From Monitor] Respiratory 25 H 23 20 Rate Blood Pressure 129/74 134/77 137/83 O2 Sat by Pulse 91 95 95 Oximetry 12/24/20 12/24/20 12/24/20 03:00 03:30 03:53 Temperature 97.7 F Pulse Rate 88 70 Pulse Rate [ From Monitor] Respiratory 22 25 H Rate Blood Pressure 121/80 130/74 O2 Sat by Pulse 96 95 Oximetry 12/24/20 12/24/20 12/24/20 04:00 04:27 04:31 Temperature Pulse Rate 74 69 75 Pulse Rate [ From Monitor] Respiratory 22 33 H 26 H Rate Blood Pressure 125/74 121/80 123/78 O2 Sat by Pulse 91 95 93 Oximetry 12/24/20 12/24/20 12/24/20 05:00 05:30 06:00 Temperature Pulse Rate 68 75 72 Pulse Rate [ From Monitor] Respiratory 21 25 H 31 H Rate Blood Pressure 142/74 141/75 150/85 O2 Sat by Pulse 94 89 93 Oximetry 12/24/20 12/24/20 12/24/20 06:30 07:01 07:31 Temperature Pulse Rate 78 83 72 Pulse Rate [ From Monitor] Respiratory 29 H 15 23 Rate Blood Pressure 137/81 155/89 138/76 O2 Sat by Pulse 92 89 95 Oximetry 12/24/20 12/24/20 12/24/20 08:00 08:31 08:59 Temperature 98.6 F Pulse Rate 76 82 Pulse Rate [ 80 From Monitor] Respiratory 26 H 34 H Rate Blood Pressure 133/82 158/85 O2 Sat by Pulse 96 91 90 Oximetry 12/24/20 12/24/20 12/24/20 09:01 09:31 09:39 Temperature Pulse Rate 75 89 78 Pulse Rate [ From Monitor] Respiratory 32 H 20 37 H Rate Blood Pressure 161/83 161/83 O2 Sat by Pulse 87 84 92 Oximetry 12/24/20 12/24/20 12/24/20 10:00 10:31 11:00 Temperature Pulse Rate 82 72 70 Pulse Rate [ From Monitor] Respiratory 19 26 H 23 Rate Blood Pressure 185/109 143/97 143/98 O2 Sat by Pulse 96 98 98 Oximetry 12/24/20 12/24/20 12:00 12:06 Temperature 99 F Pulse Rate 73 Pulse Rate [ From Monitor] Respiratory 22 Rate Blood Pressure 172/82 O2 Sat by Pulse 97 Oximetry - Lab 12/24/20 12:29 12/24/20 12:29 Most recent lab results Calcium 7.4 mg/dL (8.4-10.2) L 12/23/20 14:09 Urine Creatinine 117.9 mg/dL (0.1-20.0) H 12/22/20 03:00 Urine Sodium 67 mmol/L 12/22/20 03:00 Medications & Allergies - Medications Allergies/Adverse Reactions: Allergies No Known Allergies Allergy (Verified 12/29/14 22:38) Home Medications: Home Medications Medication Instructions Recorded Confirmed Last Taken Type Cyclobenzaprine [Flexeril 10 MG 10 mg PO QHS PRN 12/21/20 12/21/20 Unknown History TAB] Gabapentin [Neurontin] 800 mg PO TID 12/21/20 12/21/20 12/20/20 History metFORMIN [Glucophage] 1,000 mg PO BID 12/21/20 12/21/20 12/20/20 History traMADoL [Ultram 50 MG tab] 50 mg PO BID PRN MDD 100 12/21/20 12/21/20 Unknown History Active Medications: Generic Name Dose Route Start Last Admin Trade Name Freq PRN Reason Stop Dose Admin Acetaminophen 650 mg 12/20/20 23:15 12/24/20 09:40 Acetaminophen 325 Mg Tab PO 650 mg Q4H PRN Administration Pain MILD(1-3)/Fever >100.5/VARGAS Albuterol 2.5 mg 12/21/20 12:00 Albuterol 2.5 Mg/3 Ml Nebu IH Q4HRT PRN Shortness Of Breath Dextrose 50 ml 12/20/20 23:15 Dextrose 50% In Water (25gm) 50 Ml Syringe IV Q30MIN PRN Hypoglycemia Protocol Enoxaparin Sodium 40 mg 12/21/20 22:00 12/23/20 21:00 Enoxaparin 40 Mg/0.4 Ml Inj SUB-Q 40 mg QDAY@2200 TAMEKA Administration Protocol Gabapentin 800 mg 12/21/20 22:00 12/24/20 09:40 Gabapentin 400 Mg Cap PO 800 mg BID TAMEKA Administration Glipizide 10 mg 12/21/20 10:00 12/24/20 09:40 Glipizide 10 Mg Tab PO 10 mg BIDDIAB TAMEKA Administration Guaifenesin 200 mg 12/21/20 16:00 12/22/20 20:41 Guaifenesin 100 Mg/5 Ml Oral Liqd PO 200 mg Q4H PRN Administration Cough Ceftriaxone Sodium 2 gm in 100 mls @ 200 mls/hr 12/21/20 21:00 12/23/20 20:59 Rocephin/Ns 2 Gm/100 Ml IV 200 mls/hr Q24H TAMEKA Administration Protocol Azithromycin 500 mg in 250 mls @ 250 mls/hr 12/21/20 22:00 12/22/20 21:02 Zithromax/Ns IV 250 mls/hr Q24H TAMEKA Administration Protocol REMDESIVIR 100 mg/ Sodium 250 mls @ 500 mls/hr 12/22/20 21:00 12/23/20 20:59 Chloride IV 12/25/20 21:29 500 mls/hr Q24HR@2100 TAMEKA Administration Insulin Human Lispro 0 unit 12/21/20 07:30 12/24/20 12:58 Insulin Lispro 100 Unit/Ml SUB-Q 4 unit ACHS TAMEKA Administration Protocol Lorazepam 0.5 mg 12/23/20 20:12 Lorazepam 2 Mg/Ml Vial IV Q6H PRN Anxiety Magnesium Hydroxide 30 ml 12/20/20 23:15 Magnesium Hydroxide (Mom) Oral Liqd Udc PO Q4H PRN Constipation Methylprednisolone Sodium Succinate 60 mg 12/23/20 22:00 12/24/20 09:54 Methylprednisolone Sod Succinate 125 Mg/2 Ml Inj IV 60 mg Q8HR [facility] Administration Morphine Sulfate 2 mg 12/20/20 23:15 12/23/20 20:58 Morphine 2 Mg/1 Ml Inj IV 2 mg Q4H PRN Administration Pain, Moderate (4-6) Ondansetron HCl 4 mg 12/20/20 23:15 Ondansetron 4 Mg/2 Ml Inj IV Q8H PRN Nausea And Vomiting Oxycodone/Acetaminophen 1 tab 12/21/20 16:00 12/22/20 20:41 Oxycodone /Acetaminophen 5-325mg Tab PO 1 tab Q6H PRN Administration Pain, Moderate (4-6) Sodium Chloride 10 ml 12/21/20 10:00 12/24/20 09:41 Sodium Chloride 0.9% 10 Ml Flush Syringe IV 10 ml BID [facility] Administration Sodium Chloride 10 ml 12/20/20 23:15 12/21/20 18:48 Sodium Chloride 0.9% 10 Ml Flush Syringe IV 10 ml PRN PRN Administration LINE FLUSH Sodium Chloride 50 ml 12/21/20 17:30 12/23/20 20:59 Sodium Chloride 0.9% 50 Ml Ivpb IV 12/25/20 21:01 50 ml Q24HR@2100 [facility] Administration Sodium Chloride 1 applic 12/22/20 12:00 12/23/20 10:00 [place] Saline Nasal Gel 14.1 Gm NS 1 applic BID [facility] Administration
[2020-12-24 13:48] LABS: Basophils % (Auto) 0.5 % (0.0-1.8); Hematocrit 32.7 % (30.3-42.9); Hemoglobin 11.3 gm/dl (10.1-14.3); Lymphocytes # (Auto) 0.4 K/mm3 (1.2-5.4); Lymphocytes % (Auto) 17.2 % (13.4-35.0); Mean Corpuscular HGB Conc 35 % (30-34); Mean Corpuscular Volume 94 fl (79-97); Monocytes # (Auto) 0.2 K/mm3 (0.0-0.8); Monocytes % (Auto) 7.6 % (0.0-7.3); Platelet Count 132 K/mm3 (140-440); Red Blood Count 3.49 M/mm3 (3.65-5.03); Red Cell Distribution Width 14.2 % (13.2-15.2)
[2020-12-24 14:02] LABS: Alanine Aminotransferase 41 units/L (7-56); Albumin 2.8 g/dL (3.9-5); BUN/Creatinine Ratio 21; Blood Urea Nitrogen 17 mg/dL (7-17); Calcium 7.8 mg/dL (8.4-10.2); Hemolysis Index 12
[2020-12-24] MEDS: AYR SALINE NASAL GEL 14.1 GM NS SCH ×2 (15:23→23:01)
--- NOTE | 2020-12-24 15:25 | Progress Note ---
Assessment and Plan Imp: 1. Covid-19 2. Viral pneumonia 3. Acute respiratory failure, hypoxia 4. Morbid obesity 5. HOMA 6. Leukopenia/Thrombocytopenia, presumably due to Covid-19 7. ILD on 07/2020 CT chest Rec: 1. Patient with underlying chronic ILD of ? etiology seen on CT chest 07/2020 from [facility]; changed her to Solumedrol 60mg IV [id number] 2. Cont. Remsdesivir to complete 5 days 3. Cont. Lovenox; D-dimer not suggestive of VTE 4. BIPAP prn, alternating with HFNC; d/w RN and RT that she needs to prone when on HFNC 5. ABX per ID 6. Monitor CBC, LFTs, inflammatory markers, etc. 7. Complex decision-making with prognosis guarded Plan of care reviewed w/ patient, she understands/agrees Subjective Date of service: 12/24/20 Principal diagnosis: COVID-19 Interval history: Currently on BIPAP. States SOB is better today. No new complaints. Active Medications Acetaminophen (Acetaminophen 325 Mg Tab) 650 mg PO Q4H PRN PRN Reason: Pain MILD(1-3)/Fever >100.5/VARGAS Last Admin: 12/24/20 09:40 Dose: 650 mg Documented by: Albuterol (Albuterol 2.5 Mg/3 Ml Nebu) 2.5 mg IH Q4HRT PRN PRN Reason: Shortness Of Breath Dextrose (Dextrose 50% In Water (25gm) 50 Ml Syringe) 50 ml IV Q30MIN PRN; Protocol PRN Reason: Hypoglycemia Enoxaparin Sodium (Enoxaparin 40 Mg/0.4 Ml Inj) 40 mg SUB-Q QDAY@2200 [facility]; Protocol Last Admin: 12/23/20 21:00 Dose: 40 mg Documented by: Gabapentin (Gabapentin 400 Mg Cap) 800 mg PO BID [facility] Last Admin: 12/24/20 09:40 Dose: 800 mg Documented by: Glipizide (Glipizide 10 Mg Tab) 10 mg PO BIDDIAB [facility] Last Admin: 12/24/20 09:40 Dose: 10 mg Documented by: Guaifenesin (Guaifenesin 100 Mg/5 Ml Oral Liqd) 200 mg PO Q4H PRN PRN Reason: Cough Last Admin: 12/22/20 20:41 Dose: 200 mg Documented by: Ceftriaxone Sodium (Rocephin/Ns 2 Gm/100 Ml) 2 gm in 100 mls @ 200 mls/hr IV Q24H [facility]; Protocol Last Admin: 12/23/20 20:59 Dose: 200 mls/hr Documented by: Azithromycin (Zithromax/Ns) 500 mg in 250 mls @ 250 mls/hr IV Q24H [facility]; Protocol Last Admin: 12/22/20 21:02 Dose: 250 mls/hr Documented by: REMDESIVIR 100 mg/ Sodium (Chloride) 250 mls @ 500 mls/hr IV Q24HR@2100 [facility] Stop: 12/25/20 21:29 Last Admin: 12/23/20 20:59 Dose: 500 mls/hr Documented by: Insulin Human Lispro (Insulin Lispro 100 Unit/Ml) 0 unit SUB-Q ACHS [facility]; Protocol Last Admin: 12/24/20 12:58 Dose: 4 unit Documented by: Lorazepam (Lorazepam 2 Mg/Ml Vial) 0.5 mg IV Q6H PRN PRN Reason: Anxiety Magnesium Hydroxide (Magnesium Hydroxide (Mom) Oral Liqd Udc) 30 ml PO Q4H PRN PRN Reason: Constipation Methylprednisolone Sodium Succinate (Methylprednisolone Sod Succinate 125 Mg/2 Ml Inj) 60 mg IV Q8HR [facility] Last Admin: 12/24/20 15:22 Dose: 60 mg Documented by: Morphine Sulfate (Morphine 2 Mg/1 Ml Inj) 2 mg IV Q4H PRN PRN Reason: Pain, Moderate (4-6) Last Admin: 12/23/20 20:58 Dose: 2 mg Documented by: Ondansetron HCl (Ondansetron 4 Mg/2 Ml Inj) 4 mg IV Q8H PRN PRN Reason: Nausea And Vomiting Oxycodone/Acetaminophen (Oxycodone /Acetaminophen 5-325mg Tab) 1 tab PO Q6H PRN PRN Reason: Pain, Moderate (4-6) Last Admin: 12/22/20 20:41 Dose: 1 tab Documented by: Sodium Chloride (Sodium Chloride 0.9% 10 Ml Flush Syringe) 10 ml IV BID [facility] Last Admin: 12/24/20 09:41 Dose: 10 ml Documented by: Sodium Chloride (Sodium Chloride 0.9% 10 Ml Flush Syringe) 10 ml IV PRN PRN PRN Reason: LINE FLUSH Last Admin: 12/21/20 18:48 Dose: 10 ml Documented by: Sodium Chloride (Sodium Chloride 0.9% 50 Ml Ivpb) 50 ml IV Q24HR@2100 [facility] Stop: 12/25/20 21:01 Last Admin: 12/23/20 20:59 Dose: 50 ml Documented by: Sodium Chloride (Abbot Saline Nasal Gel 14.1 Gm) 1 applic NS BID [facility] Last Admin: 12/24/20 15:23 Dose: 1 applic Documented by: Objective Vital Signs - 12hr 12/24/20 12/24/20 12/24/20 03:30 03:53 04:00 Temperature 97.7 F Pulse Rate 70 74 Pulse Rate [ From Monitor] Respiratory 25 H 22 Rate Blood Pressure 130/74 125/74 O2 Sat by Pulse 95 91 Oximetry 12/24/20 12/24/20 12/24/20 04:27 04:31 05:00 Temperature Pulse Rate 69 75 68 Pulse Rate [ From Monitor] Respiratory 33 H 26 H 21 Rate Blood Pressure 121/80 123/78 142/74 O2 Sat by Pulse 95 93 94 Oximetry 12/24/20 12/24/20 12/24/20 05:30 06:00 06:30 Temperature Pulse Rate 75 72 78 Pulse Rate [ From Monitor] Respiratory 25 H 31 H 29 H Rate Blood Pressure 141/75 150/85 137/81 O2 Sat by Pulse 89 93 92 Oximetry 12/24/20 12/24/20 12/24/20 07:01 07:31 08:00 Temperature 98.6 F Pulse Rate 83 72 76 Pulse Rate [ 80 From Monitor] Respiratory 15 23 26 H Rate Blood Pressure 155/89 138/76 133/82 O2 Sat by Pulse 89 95 96 Oximetry 12/24/20 12/24/20 12/24/20 08:31 08:59 09:01 Temperature Pulse Rate 82 75 Pulse Rate [ From Monitor] Respiratory 34 H 32 H Rate Blood Pressure 158/85 161/83 O2 Sat by Pulse 91 90 87 Oximetry 12/24/20 12/24/20 12/24/20 09:31 09:39 10:00 Temperature Pulse Rate 89 78 82 Pulse Rate [ From Monitor] Respiratory 20 37 H 19 Rate Blood Pressure 161/83 185/109 O2 Sat by Pulse 84 92 96 Oximetry 12/24/20 12/24/20 12/24/20 10:31 11:00 11:30 Temperature Pulse Rate 72 70 71 Pulse Rate [ From Monitor] Respiratory 26 H 23 23 Rate Blood Pressure 143/97 143/98 166/91 O2 Sat by Pulse 98 98 98 Oximetry 12/24/20 12/24/20 12/24/20 12:00 12:01 12:06 Temperature 99 F Pulse Rate 74 73 Pulse Rate [ 78 From Monitor] Respiratory 26 H 27 H 22 Rate Blood Pressure 172/82 172/82 O2 Sat by Pulse 96 97 97 Oximetry 12/24/20 12/24/20 12/24/20 12:31 13:01 13:31 Temperature Pulse Rate 69 77 74 Pulse Rate [ From Monitor] Respiratory 21 25 H 32 H Rate Blood Pressure 139/58 190/91 164/71 O2 Sat by Pulse 98 98 98 Oximetry 12/24/20 14:00 Temperature Pulse Rate 72 Pulse Rate [ From Monitor] Respiratory 35 H Rate Blood Pressure 165/87 O2 Sat by Pulse 96 Oximetry Constitutional: no acute distress, alert (obese), other (on BIPAP) Eyes: non-icteric ENT: oropharynx moist Neck: supple Effort: normal Ascultation: Bilateral: diminished breath sounds (anteriorly) Cardiovascular: regular rate and rhythm (no mrg) Gastrointestinal: normoactive bowel sounds, soft, non-tender, non-distended Integumentary: normal Extremities: no cyanosis, no edema, pink and warm Neurologic: normal mental status, non-focal exam Psychiatric: mood appropriate, affect normal CBC and BMP: 12/24/20 12:29 12/24/20 12:29 ABG, PT/INR, D-dimer: PT/INR, D-dimer PT 13.1 Sec. (12.2-14.9) 12/21/20 05:50 INR 1.01 (0.87-1.13) 12/21/20 05:50 D-Dimer 159.26 ng/mlDDU (0-234) 12/22/20 14:18 Abnormal lab findings: Abnormal Labs 12/20/20 12/20/20 12/20/20 19:27 19:27 19:27 WBC 2.9 L RBC MCHC Plt Count 116 L Lymph % (Auto) 41.2 H [place] % (Auto) 13.2 H Lymph # (Auto) Seg Neutrophils % Seg Neuts % (Manual) Lymphocytes % (Manual) Nucleated RBC % Seg Neutrophils # 1.3 L Seg Neutrophils # Man Lymphocytes # (Manual) D-Dimer 260.58 H Sodium 135 L Potassium Chloride 96.1 L BUN 23 H Creatinine 1.4 H Glucose 295 H POC Glucose Hemoglobin A1c Calcium 8.3 L Ferritin AST 125 H ALT 96 H Alkaline Phosphatase 323 H Lactate Dehydrogenase C-Reactive Protein Total Protein 8.7 H Albumin 3.7 L Urine Creatinine Coronavirus (PCR) 12/20/20 12/20/20 12/21/20 19:43 19:43 05:50 WBC RBC MCHC Plt Count Lymph % (Auto) [place] % (Auto) Lymph # (Auto) Seg Neutrophils % Seg Neuts % (Manual) Lymphocytes % (Manual) Nucleated RBC % Seg Neutrophils # Seg Neutrophils # Man Lymphocytes # (Manual) D-Dimer Sodium Potassium Chloride BUN Creatinine Glucose 297 H POC Glucose Hemoglobin A1c 10.3 H Calcium Ferritin 1420.0 H AST ALT Alkaline Phosphatase Lactate Dehydrogenase 491 H C-Reactive Protein 5.50 H Total Protein Albumin Urine Creatinine Coronavirus (PCR) 12/21/20 12/21/20 12/21/20 05:50 05:50 08:04 WBC 1.6 L* RBC 3.40 L MCHC Plt Count 104 L Lymph % (Auto) [place] % (Auto) Lymph # (Auto) Seg Neutrophils % Seg Neuts % (Manual) 82.0 H Lymphocytes % (Manual) Nucleated RBC % Seg Neutrophils # Seg Neutrophils # Man 1.3 L Lymphocytes # (Manual) 0.3 L D-Dimer Sodium 132 L Potassium 5.7 H D Chloride 95.7 L BUN 33 H Creatinine 1.7 H Glucose 500 H POC Glucose 483 H Hemoglobin A1c Calcium 7.7 L Ferritin AST ALT Alkaline Phosphatase Lactate Dehydrogenase C-Reactive Protein Total Protein Albumin Urine Creatinine Coronavirus (PCR) 12/21/20 12/21/20 12/21/20 10:28 12:05 16:54 WBC RBC MCHC Plt Count Lymph % (Auto) [place] % (Auto) Lymph # (Auto) Seg Neutrophils % Seg Neuts % (Manual) Lymphocytes % (Manual) Nucleated RBC % Seg Neutrophils # Seg Neutrophils # Man Lymphocytes # (Manual) D-Dimer Sodium Potassium Chloride BUN Creatinine Glucose POC Glucose 482 H 374 H Hemoglobin A1c Calcium Ferritin AST ALT Alkaline Phosphatase Lactate Dehydrogenase C-Reactive Protein Total Protein Albumin Urine Creatinine Coronavirus (PCR) Positive A 12/21/20 12/21/20 12/22/20 18:24 22:12 03:00 WBC RBC MCHC Plt Count Lymph % (Auto) [place] % (Auto) Lymph # (Auto) Seg Neutrophils % Seg Neuts % (Manual) Lymphocytes % (Manual) Nucleated RBC % Seg Neutrophils # Seg Neutrophils # Man Lymphocytes # (Manual) D-Dimer Sodium 131 L Potassium Chloride 95.2 L BUN 37 H Creatinine 1.4 H Glucose 417 H POC Glucose 358 H Hemoglobin A1c Calcium 7.5 L Ferritin AST 82 H ALT 69 H Alkaline Phosphatase 262 H Lactate Dehydrogenase C-Reactive Protein Total Protein Albumin 3.0 L Urine Creatinine 117.9 H Coronavirus (PCR) 12/22/20 12/22/20 12/22/20 05:29 08:19 11:18 WBC RBC MCHC Plt Count Lymph % (Auto) [place] % (Auto) Lymph # (Auto) Seg Neutrophils % Seg Neuts % (Manual) Lymphocytes % (Manual) Nucleated RBC % Seg Neutrophils # Seg Neutrophils # Man Lymphocytes # (Manual) D-Dimer Sodium Potassium Chloride BUN 34 H Creatinine 1.3 H Glucose 169 H POC Glucose 136 H 132 H Hemoglobin A1c Calcium 7.5 L Ferritin AST 74 H ALT 60 H Alkaline Phosphatase 249 H Lactate Dehydrogenase C-Reactive Protein Total Protein Albumin 3.1 L Urine Creatinine Coronavirus (PCR) 12/22/20 12/22/20 12/22/20 14:18 14:18 16:36 WBC RBC MCHC Plt Count Lymph % (Auto) [place] % (Auto) Lymph # (Auto) Seg Neutrophils % Seg Neuts % (Manual) Lymphocytes % (Manual) Nucleated RBC % Seg Neutrophils # Seg Neutrophils # Man Lymphocytes # (Manual) D-Dimer Sodium Potassium Chloride BUN Creatinine Glucose POC Glucose 440 H Hemoglobin A1c Calcium Ferritin 1295.0 H AST ALT Alkaline Phosphatase Lactate Dehydrogenase 620 H C-Reactive Protein 2.70 H Total Protein Albumin Urine Creatinine Coronavirus (PCR) 12/22/20 12/23/20 12/23/20 21:07 08:09 11:30 WBC RBC MCHC Plt Count Lymph % (Auto) [place] % (Auto) Lymph # (Auto) Seg Neutrophils % Seg Neuts % (Manual) Lymphocytes % (Manual) Nucleated RBC % Seg Neutrophils # Seg Neutrophils # Man Lymphocytes # (Manual) D-Dimer Sodium Potassium Chloride BUN Creatinine Glucose POC Glucose 493 H 156 H 185 H Hemoglobin A1c Calcium Ferritin AST ALT Alkaline Phosphatase Lactate Dehydrogenase C-Reactive Protein Total Protein Albumin Urine Creatinine Coronavirus (PCR) 12/23/20 12/23/20 12/23/20 14:09 14:09 16:26 WBC 1.8 L* RBC 3.45 L MCHC Plt Count 114 L Lymph % (Auto) [place] % (Auto) Lymph # (Auto) Seg Neutrophils % Seg Neuts % (Manual) 87.0 H Lymphocytes % (Manual) 3.0 L Nucleated RBC % 1.0 H Seg Neutrophils # Seg Neutrophils # Man 1.6 L Lymphocytes # (Manual) 0.1 L D-Dimer Sodium Potassium Chloride BUN 19 H Creatinine Glucose 292 H POC Glucose 351 H Hemoglobin A1c Calcium 7.4 L Ferritin AST 71 H ALT Alkaline Phosphatase 264 H Lactate Dehydrogenase C-Reactive Protein Total Protein Albumin 3.0 L Urine Creatinine Coronavirus (PCR) 12/23/20 12/24/20 12/24/20 21:11 08:21 11:58 WBC RBC MCHC Plt Count Lymph % (Auto) [place] % (Auto) Lymph # (Auto) Seg Neutrophils % Seg Neuts % (Manual) Lymphocytes % (Manual) Nucleated RBC % Seg Neutrophils # Seg Neutrophils # Man Lymphocytes # (Manual) D-Dimer Sodium Potassium Chloride BUN Creatinine Glucose POC Glucose 288 H 286 H 277 H Hemoglobin A1c Calcium Ferritin AST ALT Alkaline Phosphatase Lactate Dehydrogenase C-Reactive Protein Total Protein Albumin Urine Creatinine Coronavirus (PCR) 12/24/20 12/24/20 12:29 12:29 WBC 2.5 L RBC 3.49 L MCHC 35 H Plt Count 132 L Lymph % (Auto) [place] % (Auto) 7.6 H Lymph # (Auto) 0.4 L Seg Neutrophils % 74.7 H Seg Neuts % (Manual) Lymphocytes % (Manual) Nucleated RBC % Seg Neutrophils # Seg Neutrophils # Man Lymphocytes # (Manual) D-Dimer Sodium Potassium Chloride BUN Creatinine Glucose 256 H POC Glucose Hemoglobin A1c Calcium 7.8 L Ferritin AST 50 H ALT Alkaline Phosphatase 262 H Lactate Dehydrogenase C-Reactive Protein Total Protein Albumin 2.8 L Urine Creatinine Coronavirus (PCR) Chest x-ray: report reviewed, image reviewed CT scan - chest: report reviewed, image reviewed
[2020-12-24] MEDS: LORazepam 2 MG/ML VIAL IV PRN (16:12)
[2020-12-24] MEDS: REMDESIVIR 100 MG in SODIUM CHLORIDE 0.9% 250ML 250 ML IV SCH (22:40)
[2020-12-24] MEDS: cefTRIAXone/NS 2 GM/100 ML 2 GM/100 ML BAG IV SCH (22:41)
[2020-12-24] MEDS: SODIUM CHLORIDE 0.9% 50 ML IVPB IV SCH (22:41)
[2020-12-24] MEDS: AZITHROMYCIN/NS 500 MG/250 ML 500 MG/250 ML BAG IV SCH ×3 (22:53→23:22)
[2020-12-24] MEDS: ENOXAPARIN 40 MG/0.4 ML INJ SUB-Q SCH (22:58)
[2020-12-24] MEDS: MORPHINE 2 MG/1 ML INJ IV PRN (23:40)
[2020-12-25] MEDS: methylPREDNISolone Sod Succinate 125 MG/2 ML INJ IV SCH ×3 (05:20→22:01)
[2020-12-25] MEDS: INSULIN LISPRO 100 UNIT/ML SUB-Q SCH ×4 (08:27→22:01)
[2020-12-25] MEDS: glipiZIDE 10 MG TAB PO SCH ×2 (08:27→16:20)
[2020-12-25] MEDS: GABAPENTIN 400 MG CAP PO SCH ×2 (09:02→22:00)
[2020-12-25] MEDS: AYR SALINE NASAL GEL 14.1 GM NS SCH ×3 (09:03→22:02)
--- NOTE | 2020-12-25 09:03 | Progress Note ---
Assessment and Plan Assessment and plan: Severe COVID-19 pneumonia Acute hypoxic respiratory failure. Diabetes mellitus type 2. Morbid obesity. Elevated LFTs. DVT prophylaxis. 12/21/2020. Follow-up COVID-19 testing. Continue to trend inflammatory markers. Continue dexamethasone. ID and pulmonary consultation pending. Patient currently with 6 L/min O2 FiO2 44%. 12/22/2020. COVID-19 testing found to be positive. Continue to trend in flammatory markers. Continue dexamethasone. Patient requiring more oxygen with high flow nasal cannula 30 L/min and FiO2 100%. ID and pulmonary following. 12/23/2020. Patient with increasing oxygen requirements with high flow nasal cannula 40 L/min with FiO2 100%. Continue dexamethasone per ID recommendations. We will transfer to [facility] for closer monitoring. 12/24/2020. Patient was transferred to [facility] for closer monitoring yesterday. Patient currently requiring BiPAP with IPAP 16 and EPAP of 8 with FiO2 100%. Continue dexamethasone and remdesivir. Continue to trend inflammatory markers. Continue anticoagulation. Prone position as possible. Continue ceftriaxone and azithromycin per ID recommendations. 12/25/2020. Patient currently requiring BiPAP with IPAP 16 and EPAP of 8 with FiO2 100%. Continue IV steroids of Solu-Medrol 60 mg every 8 hour and remdesivir. Continue to trend inflammatory markers. Continue anticoagulation with Lovenox. Prone position as possible. Continue ceftriaxone and azithromycin per ID recommendations. Prognosis is guarded. History Interval history: Patient remains hypoxic in the IMCU. Patient is somewhat lethargic Hospitalist Physical - Constitutional Vitals: Temp Pulse Resp BP Pulse Ox 97.7 F 78 22 157/84 98 12/25/20 04:00 12/25/20 08:00 12/25/20 08:00 12/25/20 07:30 12/25/20 08:00 General appearance: Present: no acute distress, well-nourished, obese - EENT Eyes: Present: PERRL, EOM intact ENT: hearing intact, clear oral mucosa, dentition normal - Neck Neck: Present: supple, normal ROM - Respiratory Respiratory effort: normal Respiratory: bilateral: CTA - Cardiovascular Rhythm: regular Heart Sounds: Present: S1 & S2. Absent: gallop, rub - Extremities Extremities: no ischemia, No edema, Full ROM - Abdominal General gastrointestinal: soft, non-tender, non-distended, normal bowel sounds - Integumentary Integumentary: Present: clear, warm, dry - Neurologic Neurologic: CNII-XII intact, moves all extremities HEART Score - HEART Score Troponin: Troponin T < 0.010 ng/mL (0.00-0.029) 12/20/20 19:27 Results - Labs CBC & Chem 7: 12/24/20 12:29 12/24/20 12:29 Labs: Laboratory Last Values WBC 2.5 K/mm3 (4.5-11.0) L 12/24/20 12:29 RBC 3.49 M/mm3 (3.65-5.03) L 12/24/20 12: Hgb 11.3 gm/dl (10.1-14.3) 12/24/20 12: Hct 32.7 % (30.3-42.9) 12/24/20 12: MCV 94 fl (79-97) 12/24/20 12: MCH 32 pg (28-32) 12/24/20 12: MCHC 35 % (30-34) H 12/24/20 12:29 RDW 14.2 % (13.2-15.2) 12/24/20 12:29 Plt Count 132 K/mm3 (140-440) L 12/24/20 12: Lymph % (Auto) 17.2 % (13.4-35.0) 12/24/20 12: Mora % (Auto) 7.6 % (0.0-7.3) H 12/24/20 12: Eos % (Auto) 0.0 % (0.0-4.3) 12/24/20 12:29 Baso % (Auto) 0.5 % (0.0-1.8) 12/24/20 12: Lymph # (Auto) 0.4 K/mm3 (1.2-5.4) L 12/24/20 12: Mora # (Auto) 0.2 K/mm3 (0.0-0.8) 12/24/20 12: Eos # (Auto) 0.0 K/mm3 (0.0-0.4) 12/24/20 12:29 Baso # (Auto) 0.0 K/mm3 (0.0-0.1) 12/24/20 12:29 Add Manual Diff Complete 12/23/20 14:09 Total Counted 100 12/23/20 14:09 Seg Neutrophils % 74.7 % (40.0-70.0) H 12/24/20 12:29 Seg Neuts % (Manual) 87.0 % (40.0-70.0) H 12/23/20 14:09 Band Neutrophils % 4.0 % 12/23/20 14:09 Lymphocytes % (Manual) 3.0 % (13.4-35.0) L 12/23/20 14:09 Reactive Lymphs % (Man) 1.0 % 12/23/20 14:09 Monocytes % (Manual) 5.0 % (0.0-7.3) 12/23/20 14:09 Nucleated RBC % 1.0 % (0.0-0.9) H 12/23/20 14:09 Seg Neutrophils # 1.8 K/mm3 (1.8-7.7) 12/24/20 12:29 Seg Neutrophils # Man 1.6 K/mm3 (1.8-7.7) L 12/23/20 14:09 Band Neutrophils # 0.1 K/mm3 12/23/20 14:09 Lymphocytes # (Manual) 0.1 K/mm3 (1.2-5.4) L 12/23/20 14:09 Abs React Lymphs (Man) 0.0 K/mm3 12/23/20 14:09 Monocytes # (Manual) 0.1 K/mm3 (0.0-0.8) 12/23/20 14:09 Eosinophils # (Manual) 0.0 K/mm3 (0.0-0.4) 12/23/20 14:09 Basophils # (Manual) 0.0 K/mm3 (0.0-0.1) 12/23/20 14:09 Metamyelocytes # 0.0 K/mm3 12/23/20 14:09 Myelocytes # 0.0 K/mm3 12/23/20 14:09 Promyelocytes # 0.0 K/mm3 12/23/20 14:09 Blast Cells # 0.0 K/mm3 12/23/20 14:09 WBC Morphology Not Reportable 12/23/20 14:09 Hypersegmented Neuts Not Reportable 12/23/20 14:09 Hyposegmented Neuts Not Reportable 12/23/20 14:09 Hypogranular Neuts Not Reportable 12/23/20 14:09 Smudge Cells Not Reportable 12/23/20 14:09 Toxic Granulation Not Reportable 12/23/20 14:09 Toxic Vacuolation Not Reportable 12/23/20 14:09 Dohle Bodies Not Reportable 12/23/20 14:09 Pelger-Huet Anomaly Not Reportable 12/23/20 14:09 Jair Rods Not Reportable 12/23/20 14:09 Platelet Estimate Consistent w auto 12/23/20 14:09 Clumped Platelets Not Reportable 12/23/20 14:09 Plt Clumps, EDTA Not Reportable 12/23/20 14:09 Large Platelets Not Reportable 12/23/20 14:09 Giant Platelets Not Reportable 12/23/20 14:09 Platelet Satelliting Not Reportable 12/23/20 14:09 Plt Morphology Comment Not Reportable 12/23/20 14:09 RBC Morphology Normal 12/23/20 14:09 Dimorphic RBCs Not Reportable 12/23/20 14:09 Polychromasia Not Reportable 12/23/20 14:09 Hypochromasia Not Reportable 12/23/20 14:09 Poikilocytosis Not Reportable 12/23/20 14:09 Anisocytosis Not Reportable 12/23/20 14:09 Microcytosis Not Reportable 12/23/20 14:09 Macrocytosis Not Reportable 12/23/20 14:09 Spherocytes Not Reportable 12/23/20 14:09 Pappenheimer Bodies Not Reportable 12/23/20 14:09 Sickle Cells Not Reportable 12/23/20 14:09 Target Cells Not Reportable 12/23/20 14:09 Tear Drop Cells Not Reportable 12/23/20 14:09 Ovalocytes Not Reportable 12/23/20 14:09 Helmet Cells Not Reportable 12/23/20 14:09 Foote-Edmund Bodies Not Reportable 12/23/20 14:09 [place] Rings Not Reportable 12/23/20 14:09 Ale Cells Not Reportable 12/23/20 14:09 Bite Cells Not Reportable 12/23/20 14:09 Crenated Cell Not Reportable 12/23/20 14:09 Elliptocytes Not Reportable 12/23/20 14:09 Acanthocytes (Spur) Not Reportable 12/23/20 14:09 Rouleaux Not Reportable 12/23/20 14:09 Hemoglobin C Crystals Not Reportable 12/23/20 14:09 Schistocytes Not Reportable 12/23/20 14:09 Malaria parasites Not Reportable 12/23/20 14:09 Giorgi Bodies Not Reportable 12/23/20 14:09 Hem Pathologist Commnt No 12/23/20 14:09 PT 13.1 Sec. (12.2-14.9) 12/21/20 05:50 INR 1.01 (0.87-1.13) 12/21/20 05:50 D-Dimer 159.26 ng/mlDDU (0-234) 12/22/20 14:18 Sodium 139 mmol/L (137-145) 12/24/20 12:29 Potassium 4.6 mmol/L (3.6-5.0) 12/24/20 12:29 Chloride 102.8 mmol/L (98-107) 12/24/20 12:29 Carbon Dioxide 29 mmol/L (22-30) 12/24/20 12:29 Anion Gap 12 mmol/L 12/24/20 12:29 BUN 17 mg/dL (7-17) 12/24/20 12:29 Creatinine 0.8 mg/dL (0.6-1.2) 12/24/20 12:29 Estimated GFR > 60 ml/min 12/24/20 12:29 BUN/Creatinine Ratio 21 % 12/24/20 12:29 Glucose 256 mg/dL (65-100) H 12/24/20 12:29 POC Glucose 366 mg/dL (70-105) H 12/24/20 22:01 Hemoglobin A1c 10.3 % (4-6) H 12/21/20 05:50 Lactic Acid 1.40 mmol/L (0.7-2.0) 12/21/20 05:50 Calcium 7.8 mg/dL (8.4-10.2) L 12/24/20 12:29 Ferritin 1295.0 ng/mL (10.0-200.0) H 12/22/20 14:18 Total Bilirubin 0.40 mg/dL (0.1-1.2) 12/24/20 12:29 AST 50 units/L (5-40) H 12/24/20 12:29 ALT 41 units/L (7-56) 12/24/20 12:29 Alkaline Phosphatase 262 units/L (35-129) H 12/24/20 12:29 Lactate Dehydrogenase 620 units/L (91-180) H 12/22/20 14:18 Troponin T < 0.010 ng/mL (0.00-0.029) 12/20/20 19:27 C-Reactive Protein 2.70 mg/dL (0.00-1.30) H 12/22/20 14:18 Total Protein 7.4 g/dL (6.3-8.2) 12/24/20 12: Albumin 2.8 g/dL (3.9-5) L 12/24/20 12: Albumin/Globulin Ratio 0.6 % 12/24/20 12:29 Procalcitonin 0.32 ng/mL (<0.15) 12/20/20 19:43 Urine Color Yellow (Yellow) 12/22/20 03:00 Urine Turbidity Clear (Clear) 12/22/20 03:00 Urine pH 5.0 (5.0-7.0) 12/22/20 03:00 Ur Specific [place] 1.019 (1.003-1.030) 12/22/20 03:00 Urine Protein 100 mg/dl mg/dL (Negative) 12/22/20 03:00 Urine Glucose (UA) 50 mg/dL (Negative) 12/22/20 03:00 Urine Ketones Neg mg/dL (Negative) 12/22/20 03:00 Urine Blood Sm (Negative) 12/22/20 03:00 Urine Nitrite Neg (Negative) 12/22/20 03:00 Urine Bilirubin Neg (Negative) 12/22/20 03:00 Urine Urobilinogen 2.0 mg/dL (<2.0) 12/22/20 03:00 Ur Leukocyte Esterase Neg (Negative) 12/22/20 03:00 Urine WBC (Auto) 1.0 /HPF (0.0-6.0) 12/22/20 03:00 Urine RBC (Auto) 1.0 /HPF (0.0-6.0) 12/22/20 03:00 U Epithel Cells (Auto) 3.0 /HPF (0-13.0) 12/22/20 03:00 Urine Bacteria (Auto) 1+ /HPF (Negative) 12/22/20 03:00 Urine Mucus Few /HPF 12/22/20 03:00 Urine Eosinophils None seen (None Seen) 12/22/20 03:00 Urine Creatinine 117.9 mg/dL (0.1-20.0) H 12/22/20 03:00 Urine Sodium 67 mmol/L 12/22/20 03:00 Coronavirus (PCR) Positive (Negative) A 12/21/20 10:28 Hepatitis A IgM Ab Non-reactive (NonReactive) 12/22/20 06:00 Hep Bs Antigen Non-reactive (Negative) 12/22/20 06:00 Hep B Core IgM Ab Non-reactive (NonReactive) 12/22/20 06:00 Hepatitis C Antibody Non-reactive (NonReactive) 12/22/20 06:00 Microbiology: Microbiology 12/20/20 19:27 Peripheral/Venous Blood Culture - Preliminary NO GROWTH AFTER 4 DAYS 12/20/20 19:43 Peripheral/Venous Blood Culture - Preliminary NO GROWTH AFTER 4 DAYS Curtis/IV: Voiding Method Indwelling Catheter Active Medications - Current Medications Current Medications: Generic Name Dose Route Start Last Admin Trade Name Freq PRN Reason Stop Dose Admin Acetaminophen 650 mg 12/20/20 23:15 12/24/20 09:40 Acetaminophen 325 Mg Tab PO 650 mg Q4H PRN Administration Pain MILD(1-3)/Fever >100.5/VARGAS Albuterol 2.5 mg 12/21/20 12:00 Albuterol 2.5 Mg/3 Ml Nebu IH Q4HRT PRN Shortness Of Breath Dextrose 50 ml 12/20/20 23:15 Dextrose 50% In Water (25gm) 50 Ml Syringe IV Q30MIN PRN Hypoglycemia Protocol Enoxaparin Sodium 40 mg 12/21/20 22:00 12/24/20 22:58 Enoxaparin 40 Mg/0.4 Ml Inj SUB-Q 40 mg QDAY@2200 TAMEKA Administration Protocol Gabapentin 800 mg 12/21/20 22:00 12/24/20 22:58 Gabapentin 400 Mg Cap PO 800 mg BID TAMEKA Administration Glipizide 10 mg 12/21/20 10:00 12/25/20 08:27 Glipizide 10 Mg Tab PO 10 mg BIDDIAB TAMEKA Administration Guaifenesin 200 mg 12/21/20 16:00 12/22/20 20:41 Guaifenesin 100 Mg/5 Ml Oral Liqd PO 200 mg Q4H PRN Administration Cough Ceftriaxone Sodium 2 gm in 100 mls @ 200 mls/hr 12/21/20 21:00 12/24/20 22:41 Rocephin/Ns 2 Gm/100 Ml IV 200 mls/hr Q24H TAMEKA Administration Protocol Azithromycin 500 mg in 250 mls @ 250 mls/hr 12/21/20 22:00 12/24/20 23:22 Zithromax/Ns IV 250 mls/hr Q24H TAMEKA Administration Protocol REMDESIVIR 100 mg/ Sodium 250 mls @ 500 mls/hr 12/22/20 21:00 12/24/20 22:40 Chloride IV 12/25/20 21:29 500 mls/hr Q24HR@2100 TAMEKA Administration Insulin Human Lispro 0 unit 12/21/20 07:30 12/25/20 08:27 Insulin Lispro 100 Unit/Ml SUB-Q 4 unit ACHS TAMEKA Administration Protocol Lorazepam 0.5 mg 12/23/20 20:12 12/24/20 16:12 Lorazepam 2 Mg/Ml Vial IV 0.5 mg Q6H PRN Administration Anxiety Magnesium Hydroxide 30 ml 12/20/20 23:15 Magnesium Hydroxide (Mom) Oral Liqd Udc PO Q4H PRN Constipation Methylprednisolone Sodium Succinate 60 mg 12/23/20 22:00 12/25/20 05:20 Methylprednisolone Sod Succinate 125 Mg/2 Ml Inj IV 60 mg Q8HR ATMEKA Administration Morphine Sulfate 2 mg 12/20/20 23:15 12/24/20 23:40 Morphine 2 Mg/1 Ml Inj IV 2 mg Q4H PRN Administration Pain, Moderate (4-6) Ondansetron HCl 4 mg 12/20/20 23:15 Ondansetron 4 Mg/2 Ml Inj IV Q8H PRN Nausea And Vomiting Oxycodone/Acetaminophen 1 tab 12/21/20 16:00 12/22/20 20:41 Oxycodone /Acetaminophen 5-325mg Tab PO 1 tab Q6H PRN Administration Pain, Moderate (4-6) Sodium Chloride 10 ml 12/21/20 10:00 12/24/20 22:44 Sodium Chloride 0.9% 10 Ml Flush Syringe IV 10 ml BID TAMEKA Administration Sodium Chloride 10 ml 12/20/20 23:15 12/21/20 18:48 Sodium Chloride 0.9% 10 Ml Flush Syringe IV 10 ml PRN PRN Administration LINE FLUSH Sodium Chloride 50 ml 12/21/20 17:30 12/24/20 22:41 Sodium Chloride 0.9% 50 Ml Ivpb IV 12/25/20 21:01 50 ml Q24HR@2100 TAMEKA Administration Sodium Chloride 1 applic 12/22/20 12:00 12/24/20 23:01 [place] Saline Nasal Gel 14.1 Gm NS 1 applic BID TAMEKA Administration Nutrition/Malnutrition Assess - Dietary Evaluation Nutrition/Malnutrition Findings: Nutrition Notes Start: 12/21/20 09:35 Freq: Status: Active Protocol: Document 12/23/20 08:33 AT (Rec: 12/23/20 08:41 AT [id number]) Co-Sign 12/23/20 08:33 MK Nutrition Notes Initial or Follow up Reassessment Current Diagnosis Diabetes,Hypertension, Respiratory Failure Other Pertinent Diagnosis pneu, COVID-19(+), SOB, Diabetic Neuropathy Current Diet NPO Labs/Tests POC BG 493 4/ BUN 34 Cr 1.3 Ca 7.5 Pertinent Medications NS at 75 mL/hr Height 5 ft 7 in Weight 142.882 kg [place] Body Weight (kg) 61.36 BMI 49.3 Weight Status Morbidly Obese Subjective/Other Information Follow up for intakes, ONS tolerance, and diet education needs. Pt is NPO at this time and consumed between 25-50% of meals yesterday. Could not reach pt by phone x2. Will continue to follow. Percent of energy/protein needs met: 0%/0% Burn Absent Trauma Absent Current % PO Negligible Minimum of two criteria No physical signs of malnutrition #1 Nutrition Diagnosis Inadequate oral intake Diagnosis Progress(for reassessment Continues documentation) Is patient on ventilator? No Is Patient Ambulatory and/or Out of Bed Yes REE-([place]. or-ambulatory/OOB) [ 2673.372 [id number]] Kcal/Kg value to use for calculation 14 Approximate Energy Requirements Using 2000 kcal/Kg Calculation Used for Recommendations Kcal/kg Additional Notes PRO needs: 82-102g (0.8-1g/kg AdBW 102 kg) Fluid needs: 1 mL/kcal or per MD Nutrition Intervention Change Diet Order: Continue current Add Supplement/Snack (indicate name/kcal Ensure High Protein BID /protein ) Provides kCal: 320 Provides Protein (gm) 32 Goal #1 Meet at least 75% of energy and protein needs via diet and ONS Anticipated Discharge Needs: Cardiac/Consistent CHO Follow-Up By: 12/27/20 Additional Comments F/U for stable intakes, ONS tolerance
--- NOTE | 2020-12-25 11:22 | Progress Note ---
Assessment and Plan - Patient Problems (1) Asthma Current Visit: Yes Status: Acute (2) Diabetes Current Visit: Yes Status: Acute (3) HTN (hypertension) Current Visit: Yes Status: Acute (4) Diabetic neuropathy Current Visit: Yes Status: Acute (5) HOMA (acute kidney injury) Current Visit: Yes Status: Acute (6) Acute respiratory failure with hypoxia Current Visit: Yes Status: Acute (7) Elevated liver enzymes Current Visit: Yes Status: Acute (8) Full code status Current Visit: Yes Status: Acute (9) Pneumonia due to COVID-19 virus Current Visit: Yes Status: Acute (10) SIRS (systemic inflammatory response syndrome) Current Visit: Yes Status: Acute (11) Morbid obesity Current Visit: No Status: Acute (12) Headache Current Visit: Yes Status: Acute (13) ILD (interstitial lung disease) Current Visit: Yes Status: Acute Subjective Principal diagnosis: COVID-19 Interval history: in prone position. Feels less sob on bipap 100% sat 96% Objective Vital Signs - 12hr 12/24/20 12/24/20 12/24/20 23:00 23:30 23:40 Temperature Pulse Rate 82 86 Pulse Rate [ From Monitor] Respiratory 33 H 35 H 35 H Rate Blood Pressure 178/82 173/89 O2 Sat by Pulse 89 86 Oximetry 12/25/20 12/25/20 12/25/20 00:00 00:16 00:30 Temperature 98.8 F Pulse Rate 82 85 76 Pulse Rate [ 84 From Monitor] Respiratory 21 41 H 30 H Rate Blood Pressure 162/90 162/90 166/83 O2 Sat by Pulse 83 L 91 94 Oximetry 12/25/20 12/25/20 12/25/20 01:01 01:31 02:00 Temperature Pulse Rate 87 69 70 Pulse Rate [ From Monitor] Respiratory 23 25 H 23 Rate Blood Pressure 172/109 142/77 132/75 O2 Sat by Pulse 88 95 96 Oximetry 12/25/20 12/25/20 12/25/20 02:30 03:00 03:30 Temperature Pulse Rate 70 65 69 Pulse Rate [ From Monitor] Respiratory 24 22 20 Rate Blood Pressure 142/79 131/70 138/75 O2 Sat by Pulse Oximetry 12/25/20 12/25/20 12/25/20 04:00 04:01 04:10 Temperature 97.7 F Pulse Rate 78 69 Pulse Rate [ 75 From Monitor] Respiratory 29 H 31 H 33 H Rate Blood Pressure 170/94 O2 Sat by Pulse 97 98 97 Oximetry 12/25/20 12/25/20 12/25/20 04:31 05:00 05:31 Temperature Pulse Rate 70 67 75 Pulse Rate [ From Monitor] Respiratory 25 H 23 33 H Rate Blood Pressure 152/85 158/85 157/76 O2 Sat by Pulse 94 96 98 Oximetry 12/25/20 12/25/20 12/25/20 06:01 06:30 07:00 Temperature Pulse Rate 69 69 100 H Pulse Rate [ From Monitor] Respiratory 26 H 25 H 28 H Rate Blood Pressure 153/66 149/82 156/80 O2 Sat by Pulse 97 98 94 Oximetry 12/25/20 12/25/20 12/25/20 07:30 08:00 08:30 Temperature 97.9 F Pulse Rate 73 78 Pulse Rate [ 78 From Monitor] Respiratory 31 H 22 37 H Rate Blood Pressure 157/84 177/99 O2 Sat by Pulse 98 98 96 Oximetry 12/25/20 09:00 Temperature 97.9 F Pulse Rate Pulse Rate [ From Monitor] Respiratory Rate Blood Pressure O2 Sat by Pulse Oximetry Constitutional: no acute distress, alert (obese), other (on BIPAP) Eyes: non-icteric ENT: oropharynx moist Neck: supple Effort: normal Ascultation: Bilateral: clear, diminished breath sounds (anteriorly) Cardiovascular: regular rate and rhythm (no mrg) Gastrointestinal: normoactive bowel sounds, soft, non-tender, non-distended Integumentary: normal Extremities: no cyanosis, no edema, pink and warm Neurologic: normal mental status, non-focal exam Psychiatric: mood appropriate, affect normal CBC and BMP: 12/24/20 12:29 12/24/20 12:29 ABG, PT/INR, D-dimer: PT/INR, D-dimer PT 13.1 Sec. (12.2-14.9) 12/21/20 05:50 INR 1.01 (0.87-1.13) 12/21/20 05:50 D-Dimer 159.26 ng/mlDDU (0-234) 12/22/20 14:18 Abnormal lab findings: Abnormal Labs 12/20/20 12/20/20 12/20/20 19:27 19:27 19:27 WBC 2.9 L RBC MCHC Plt Count 116 L Lymph % (Auto) 41.2 H [place] % (Auto) 13.2 H Lymph # (Auto) Seg Neutrophils % Seg Neuts % (Manual) Lymphocytes % (Manual) Nucleated RBC % Seg Neutrophils # 1.3 L Seg Neutrophils # Man Lymphocytes # (Manual) D-Dimer 260.58 H Sodium 135 L Potassium Chloride 96.1 L BUN 23 H Creatinine 1.4 H Glucose 295 H POC Glucose Hemoglobin A1c Calcium 8.3 L Ferritin AST 125 H ALT 96 H Alkaline Phosphatase 323 H Lactate Dehydrogenase C-Reactive Protein Total Protein 8.7 H Albumin 3.7 L Urine Creatinine Coronavirus (PCR) 12/20/20 12/20/20 12/21/20 19:43 19:43 05:50 WBC RBC MCHC Plt Count Lymph % (Auto) [place] % (Auto) Lymph # (Auto) Seg Neutrophils % Seg Neuts % (Manual) Lymphocytes % (Manual) Nucleated RBC % Seg Neutrophils # Seg Neutrophils # Man Lymphocytes # (Manual) D-Dimer Sodium Potassium Chloride BUN Creatinine Glucose 297 H POC Glucose Hemoglobin A1c 10.3 H Calcium Ferritin 1420.0 H AST ALT Alkaline Phosphatase Lactate Dehydrogenase 491 H C-Reactive Protein 5.50 H Total Protein Albumin Urine Creatinine Coronavirus (PCR) 12/21/20 12/21/20 12/21/20 05:50 05:50 08:04 WBC 1.6 L* RBC 3.40 L MCHC Plt Count 104 L Lymph % (Auto) [place] % (Auto) Lymph # (Auto) Seg Neutrophils % Seg Neuts % (Manual) 82.0 H Lymphocytes % (Manual) Nucleated RBC % Seg Neutrophils # Seg Neutrophils # Man 1.3 L Lymphocytes # (Manual) 0.3 L D-Dimer Sodium 132 L Potassium 5.7 H D Chloride 95.7 L BUN 33 H Creatinine 1.7 H Glucose 500 H POC Glucose 483 H Hemoglobin A1c Calcium 7.7 L Ferritin AST ALT Alkaline Phosphatase Lactate Dehydrogenase C-Reactive Protein Total Protein Albumin Urine Creatinine Coronavirus (PCR) 12/21/20 12/21/20 12/21/20 10:28 12:05 16:54 WBC RBC MCHC Plt Count Lymph % (Auto) [place] % (Auto) Lymph # (Auto) Seg Neutrophils % Seg Neuts % (Manual) Lymphocytes % (Manual) Nucleated RBC % Seg Neutrophils # Seg Neutrophils # Man Lymphocytes # (Manual) D-Dimer Sodium Potassium Chloride BUN Creatinine Glucose POC Glucose 482 H 374 H Hemoglobin A1c Calcium Ferritin AST ALT Alkaline Phosphatase Lactate Dehydrogenase C-Reactive Protein Total Protein Albumin Urine Creatinine Coronavirus (PCR) Positive A 12/21/20 12/21/20 12/22/20 18:24 22:12 03:00 WBC RBC MCHC Plt Count Lymph % (Auto) [place] % (Auto) Lymph # (Auto) Seg Neutrophils % Seg Neuts % (Manual) Lymphocytes % (Manual) Nucleated RBC % Seg Neutrophils # Seg Neutrophils # Man Lymphocytes # (Manual) D-Dimer Sodium 131 L Potassium Chloride 95.2 L BUN 37 H Creatinine 1.4 H Glucose 417 H POC Glucose 358 H Hemoglobin A1c Calcium 7.5 L Ferritin AST 82 H ALT 69 H Alkaline Phosphatase 262 H Lactate Dehydrogenase C-Reactive Protein Total Protein Albumin 3.0 L Urine Creatinine 117.9 H Coronavirus (PCR) 12/22/20 12/22/20 12/22/20 05:29 08:19 11:18 WBC RBC MCHC Plt Count Lymph % (Auto) [place] % (Auto) Lymph # (Auto) Seg Neutrophils % Seg Neuts % (Manual) Lymphocytes % (Manual) Nucleated RBC % Seg Neutrophils # Seg Neutrophils # Man Lymphocytes # (Manual) D-Dimer Sodium Potassium Chloride BUN 34 H Creatinine 1.3 H Glucose 169 H POC Glucose 136 H 132 H Hemoglobin A1c Calcium 7.5 L Ferritin AST 74 H ALT 60 H Alkaline Phosphatase 249 H Lactate Dehydrogenase C-Reactive Protein Total Protein Albumin 3.1 L Urine Creatinine Coronavirus (PCR) 12/22/20 12/22/20 12/22/20 14:18 14:18 16:36 WBC RBC MCHC Plt Count Lymph % (Auto) [place] % (Auto) Lymph # (Auto) Seg Neutrophils % Seg Neuts % (Manual) Lymphocytes % (Manual) Nucleated RBC % Seg Neutrophils # Seg Neutrophils # Man Lymphocytes # (Manual) D-Dimer Sodium Potassium Chloride BUN Creatinine Glucose POC Glucose 440 H Hemoglobin A1c Calcium Ferritin 1295.0 H AST ALT Alkaline Phosphatase Lactate Dehydrogenase 620 H C-Reactive Protein 2.70 H Total Protein Albumin Urine Creatinine Coronavirus (PCR) 12/22/20 12/23/20 12/23/20 21:07 08:09 11:30 WBC RBC MCHC Plt Count Lymph % (Auto) [place] % (Auto) Lymph # (Auto) Seg Neutrophils % Seg Neuts % (Manual) Lymphocytes % (Manual) Nucleated RBC % Seg Neutrophils # Seg Neutrophils # Man Lymphocytes # (Manual) D-Dimer Sodium Potassium Chloride BUN Creatinine Glucose POC Glucose 493 H 156 H 185 H Hemoglobin A1c Calcium Ferritin AST ALT Alkaline Phosphatase Lactate Dehydrogenase C-Reactive Protein Total Protein Albumin Urine Creatinine Coronavirus (PCR) 12/23/20 12/23/20 12/23/20 14:09 14:09 16:26 WBC 1.8 L* RBC 3.45 L MCHC Plt Count 114 L Lymph % (Auto) [place] % (Auto) Lymph # (Auto) Seg Neutrophils % Seg Neuts % (Manual) 87.0 H Lymphocytes % (Manual) 3.0 L Nucleated RBC % 1.0 H Seg Neutrophils # Seg Neutrophils # Man 1.6 L Lymphocytes # (Manual) 0.1 L D-Dimer Sodium Potassium Chloride BUN 19 H Creatinine Glucose 292 H POC Glucose 351 H Hemoglobin A1c Calcium 7.4 L Ferritin AST 71 H ALT Alkaline Phosphatase 264 H Lactate Dehydrogenase C-Reactive Protein Total Protein Albumin 3.0 L Urine Creatinine Coronavirus (PCR) 12/23/20 12/24/20 12/24/20 21:11 08:21 11:58 WBC RBC MCHC Plt Count Lymph % (Auto) [place] % (Auto) Lymph # (Auto) Seg Neutrophils % Seg Neuts % (Manual) Lymphocytes % (Manual) Nucleated RBC % Seg Neutrophils # Seg Neutrophils # Man Lymphocytes # (Manual) D-Dimer Sodium Potassium Chloride BUN Creatinine Glucose POC Glucose 288 H 286 H 277 H Hemoglobin A1c Calcium Ferritin AST ALT Alkaline Phosphatase Lactate Dehydrogenase C-Reactive Protein Total Protein Albumin Urine Creatinine Coronavirus (PCR) 12/24/20 12/24/20 12/24/20 12:29 12:29 16:05 WBC 2.5 L RBC 3.49 L MCHC 35 H Plt Count 132 L Lymph % (Auto) [place] % (Auto) 7.6 H Lymph # (Auto) 0.4 L Seg Neutrophils % 74.7 H Seg Neuts % (Manual) Lymphocytes % (Manual) Nucleated RBC % Seg Neutrophils # Seg Neutrophils # Man Lymphocytes # (Manual) D-Dimer Sodium Potassium Chloride BUN Creatinine Glucose 256 H POC Glucose 282 H Hemoglobin A1c Calcium 7.8 L Ferritin AST 50 H ALT Alkaline Phosphatase 262 H Lactate Dehydrogenase C-Reactive Protein Total Protein Albumin 2.8 L Urine Creatinine Coronavirus (PCR) 12/24/20 12/25/20 22:01 07:58 WBC RBC MCHC Plt Count Lymph % (Auto) [place] % (Auto) Lymph # (Auto) Seg Neutrophils % Seg Neuts % (Manual) Lymphocytes % (Manual) Nucleated RBC % Seg Neutrophils # Seg Neutrophils # Man Lymphocytes # (Manual) D-Dimer Sodium Potassium Chloride BUN Creatinine Glucose POC Glucose 366 H 278 H Hemoglobin A1c Calcium Ferritin AST ALT Alkaline Phosphatase Lactate Dehydrogenase C-Reactive Protein Total Protein Albumin Urine Creatinine Coronavirus (PCR)
--- NOTE | 2020-12-25 14:34 | Progress Note ---
Assessment and Plan 1. Acute kidney injury: HOMA in the setting of vasomotor insult vs Covid infection. Renal US negative. Monitor renal function. Creatinine level is better. Avoid nephrotoxic agents. Meds dosage based on GFR. 2. FEN: Hyperkalemia, improved, monitor. Monitor volume status and lytes. 3. Covid infection: Isolation, follow inflammatory markers. Followed by ID. 4. Acute on chronic hypoxemic respiratory failure, POA: 2/2 COVID infection. CXR showed mild patchy parenchymal opacities bilaterally. On BIPAP. 5. DM type 2: SSI. Monitor bl sugar. 6. HTN: Monitor BP. Adjust meds as needed. 7. Leukopenia: Monitor. 8. Elevated Transaminases: Trend. Subjective: Patient was seen and examined at the bedside. Patient is in IMCU. Objective: General appearance: well-developed, appears stated age, morbidly obese, on BIPAP HEENT: ATNC Neck: trachea midline Respiratory: coarse breath sounds Heart: regular, S1S2, no murmur Gastrointestinal: soft, normoactive bowel sounds, not tender Integumentary: no obvious rash Ext: no edema Neurologic: able to move extremities : Curtis catheter Subjective Date of service: 12/25/20 Principal diagnosis: COVID-19 Objective - Vital Signs Vital signs: Vital Signs - 12hr 12/25/20 12/25/20 12/25/20 03:00 03:30 04:00 Temperature 97.7 F Pulse Rate 65 69 Pulse Rate [ 75 From Monitor] Respiratory 22 20 29 H Rate Blood Pressure 131/70 138/75 O2 Sat by Pulse 97 Oximetry 12/25/20 12/25/20 12/25/20 04:01 04:10 04:31 Temperature Pulse Rate 78 69 70 Pulse Rate [ From Monitor] Respiratory 31 H 33 H 25 H Rate Blood Pressure 170/94 152/85 O2 Sat by Pulse 98 97 94 Oximetry 12/25/20 12/25/20 12/25/20 05:00 05:31 06:01 Temperature Pulse Rate 67 75 69 Pulse Rate [ From Monitor] Respiratory 23 33 H 26 H Rate Blood Pressure 158/85 157/76 153/66 O2 Sat by Pulse 96 98 97 Oximetry 12/25/20 12/25/20 12/25/20 06:30 07:00 07:30 Temperature Pulse Rate 69 100 H 73 Pulse Rate [ From Monitor] Respiratory 25 H 28 H 31 H Rate Blood Pressure 149/82 156/80 157/84 O2 Sat by Pulse 98 94 98 Oximetry 12/25/20 12/25/20 12/25/20 08:00 08:30 09:00 Temperature 97.9 F 97.9 F Pulse Rate 71 78 Pulse Rate [ 78 From Monitor] Respiratory 30 H 40 H Rate Blood Pressure 162/82 177/99 O2 Sat by Pulse 96 95 Oximetry 12/25/20 12/25/20 12/25/20 09:01 09:31 10:00 Temperature Pulse Rate 77 73 64 Pulse Rate [ From Monitor] Respiratory 35 H 33 H 22 Rate Blood Pressure 170/89 161/81 151/73 O2 Sat by Pulse 97 97 99 Oximetry 12/25/20 12/25/20 12/25/20 10:30 11:01 12:20 Temperature Pulse Rate 86 72 79 Pulse Rate [ From Monitor] Respiratory 36 H 16 30 H Rate Blood Pressure 158/86 152/80 166/79 O2 Sat by Pulse 99 100 98 Oximetry - Lab 12/24/20 12:29 12/24/20 12:29 Most recent lab results Calcium 7.8 mg/dL (8.4-10.2) L 12/24/20 12:29 Urine Creatinine 117.9 mg/dL (0.1-20.0) H 12/22/20 03:00 Urine Sodium 67 mmol/L 12/22/20 03:00 Medications & Allergies - Medications Allergies/Adverse Reactions: Allergies No Known Allergies Allergy (Verified 12/29/14 22:38) Home Medications: Home Medications Medication Instructions Recorded Confirmed Last Taken Type Cyclobenzaprine [Flexeril 10 MG 10 mg PO QHS PRN 12/21/20 12/21/20 Unknown History TAB] Gabapentin [Neurontin] 800 mg PO TID 12/21/20 12/21/20 12/20/20 History metFORMIN [Glucophage] 1,000 mg PO BID 12/21/20 12/21/20 12/20/20 History traMADoL [Ultram 50 MG tab] 50 mg PO BID PRN MDD 100 12/21/20 12/21/20 Unknown History Active Medications: Generic Name Dose Route Start Last Admin Trade Name Freq PRN Reason Stop Dose Admin Acetaminophen 650 mg 12/20/20 23:15 12/24/20 09:40 Acetaminophen 325 Mg Tab PO 650 mg Q4H PRN Administration Pain MILD(1-3)/Fever >100.5/VARGAS Albuterol 2.5 mg 12/21/20 12:00 Albuterol 2.5 Mg/3 Ml Nebu IH Q4HRT PRN Shortness Of Breath Dextrose 50 ml 12/20/20 23:15 Dextrose 50% In Water (25gm) 50 Ml Syringe IV Q30MIN PRN Hypoglycemia Protocol Enoxaparin Sodium 40 mg 12/21/20 22:00 12/24/20 22:58 Enoxaparin 40 Mg/0.4 Ml Inj SUB-Q 40 mg QDAY@2200 TAMEKA Administration Protocol Gabapentin 800 mg 12/21/20 22:00 12/25/20 09:02 Gabapentin 400 Mg Cap PO 800 mg BID TAMEKA Administration Glipizide 10 mg 12/21/20 10:00 12/25/20 08:27 Glipizide 10 Mg Tab PO 10 mg BIDDIAB TAMEKA Administration Guaifenesin 200 mg 12/21/20 16:00 12/22/20 20:41 Guaifenesin 100 Mg/5 Ml Oral Liqd PO 200 mg Q4H PRN Administration Cough Ceftriaxone Sodium 2 gm in 100 mls @ 200 mls/hr 12/21/20 21:00 12/24/20 22:41 Rocephin/Ns 2 Gm/100 Ml IV 12/25/20 23:59 200 mls/hr Q24H TAMEKA Administration Protocol Azithromycin 500 mg in 250 mls @ 250 mls/hr 12/21/20 22:00 12/24/20 23:22 Zithromax/Ns IV 12/25/20 23:59 250 mls/hr Q24H TAMEKA Administration Protocol REMDESIVIR 100 mg/ Sodium 250 mls @ 500 mls/hr 12/22/20 21:00 12/24/20 22:40 Chloride IV 12/25/20 21:29 500 mls/hr Q24HR@2100 TAMEKA Administration Insulin Human Lispro 0 unit 12/21/20 07:30 12/25/20 13:25 Insulin Lispro 100 Unit/Ml SUB-Q 6 unit ACHS TAMEKA Administration Protocol Lorazepam 0.5 mg 12/23/20 20:12 12/24/20 16:12 Lorazepam 2 Mg/Ml Vial IV 0.5 mg Q6H PRN Administration Anxiety Magnesium Hydroxide 30 ml 12/20/20 23:15 Magnesium Hydroxide (Mom) Oral Liqd Udc PO Q4H PRN Constipation Methylprednisolone Sodium Succinate 60 mg 12/23/20 22:00 12/25/20 13:24 Methylprednisolone Sod Succinate 125 Mg/2 Ml Inj IV 60 mg Q8HR TAMEKA Administration Morphine Sulfate 2 mg 12/20/20 23:15 12/24/20 23:40 Morphine 2 Mg/1 Ml Inj IV 2 mg Q4H PRN Administration Pain, Moderate (4-6) Ondansetron HCl 4 mg 12/20/20 23:15 Ondansetron 4 Mg/2 Ml Inj IV Q8H PRN Nausea And Vomiting Oxycodone/Acetaminophen 1 tab 12/21/20 16:00 12/22/20 20:41 Oxycodone /Acetaminophen 5-325mg Tab PO 1 tab Q6H PRN Administration Pain, Moderate (4-6) Sodium Chloride 10 ml 12/21/20 10:00 12/25/20 09:02 Sodium Chloride 0.9% 10 Ml Flush Syringe IV 10 ml BID TAMEKA Administration Sodium Chloride 10 ml 12/20/20 23:15 12/21/20 18:48 Sodium Chloride 0.9% 10 Ml Flush Syringe IV 10 ml PRN PRN Administration LINE FLUSH Sodium Chloride 50 ml 12/21/20 17:30 12/24/20 22:41 Sodium Chloride 0.9% 50 Ml Ivpb IV 12/25/20 21:01 50 ml Q24HR@2100 TAMEKA Administration Sodium Chloride 1 applic 12/22/20 12:00 12/25/20 09:03 Valera Saline Nasal Gel 14.1 Gm NS 1 applic BID TAMEKA Administration
[2020-12-25] MEDS ORDERED: FUROSEMIDE 40 MG/4 ML INJ IV ONE (15:00)
[2020-12-25] MEDS: REMDESIVIR 100 MG in SODIUM CHLORIDE 0.9% 250ML 250 ML IV SCH (20:30)
[2020-12-25] MEDS: cefTRIAXone/NS 2 GM/100 ML 2 GM/100 ML BAG IV SCH (20:30)
[2020-12-25] MEDS: SODIUM CHLORIDE 0.9% 50 ML IVPB IV SCH (22:00)
[2020-12-25] MEDS: ENOXAPARIN 40 MG/0.4 ML INJ SUB-Q SCH (22:00)
[2020-12-25] MEDS: AZITHROMYCIN/NS 500 MG/250 ML 500 MG/250 ML BAG IV SCH (22:02)
[2020-12-25] MEDS: MORPHINE 2 MG/1 ML INJ IV PRN (22:10)
[2020-12-26 05:08] LABS: BUN/Creatinine Ratio 24; Blood Urea Nitrogen 22 mg/dL (7-17); Calcium 7.9 mg/dL (8.4-10.2); Hemolysis Index 16
[2020-12-26] MEDS: methylPREDNISolone Sod Succinate 125 MG/2 ML INJ IV SCH ×3 (05:50→22:00)
--- NOTE | 2020-12-26 08:26 | Progress Note ---
Assessment and Plan Assessment and plan: Severe COVID-19 pneumonia Acute hypoxic respiratory failure. Diabetes mellitus type 2. Morbid obesity. Elevated LFTs. DVT prophylaxis. 12/21/2020. Follow-up COVID-19 testing. Continue to trend inflammatory markers. Continue dexamethasone. ID and pulmonary consultation pending. Patient currently with 6 L/min O2 FiO2 44%. 12/22/2020. COVID-19 testing found to be positive. Continue to trend in flammatory markers. Continue dexamethasone. Patient requiring more oxygen with high flow nasal cannula 30 L/min and FiO2 100%. ID and pulmonary following. 12/23/2020. Patient with increasing oxygen requirements with high flow nasal cannula 40 L/min with FiO2 100%. Continue dexamethasone per ID recommendations. We will transfer to [facility] for closer monitoring. 12/24/2020. Patient was transferred to [facility] for closer monitoring yesterday. Patient currently requiring BiPAP with IPAP 16 and EPAP of 8 with FiO2 100%. Continue dexamethasone and remdesivir. Continue to trend inflammatory markers. Continue anticoagulation. Prone position as possible. Continue ceftriaxone and azithromycin per ID recommendations. 12/25/2020. Patient currently requiring BiPAP with IPAP 16 and EPAP of 8 with FiO2 100%. Continue IV steroids of Solu-Medrol 60 mg every 8 hour and remdesivir. Continue to trend inflammatory markers. Continue anticoagulation with Lovenox. Prone position as possible. Continue ceftriaxone and azithromycin per ID recommendations. Prognosis is guarded. 12/26/2020 BG not controlled with glipizide. Start Lantus at bedtime for BG control. Elevated BG likely secondary to IV steroid. Patient currently requiring BiPAP with IPAP 18 and EPAP of 10 with FiO2 100%. Continue IV steroids of Solu-Medrol 60 mg every 8 hour and remdesivir. Continue to trend inflammatory markers. Continue anticoagulation with Lovenox. Prone position as possible. Continue ceftriaxone and azithromycin per ID recommendations. Prognosis is guarded. History Interval history: Patient remains hypoxic in the IMCU. Patient is somewhat lethargic Hospitalist Physical - Constitutional Vitals: Temp Pulse Resp BP Pulse Ox 97.9 F 69 28 H 151/82 98 12/26/20 08:00 12/26/20 07:30 12/26/20 07:30 12/26/20 07:30 12/26/20 07:30 General appearance: Present: no acute distress, well-nourished, obese - EENT Eyes: Present: PERRL, EOM intact ENT: hearing intact, clear oral mucosa, dentition normal - Neck Neck: Present: supple, normal ROM - Respiratory Respiratory effort: normal Respiratory: bilateral: CTA - Cardiovascular Rhythm: regular Heart Sounds: Present: S1 & S2. Absent: gallop, rub - Extremities Extremities: no ischemia, No edema, Full ROM - Abdominal General gastrointestinal: soft, non-tender, non-distended, normal bowel sounds - Integumentary Integumentary: Present: clear, warm, dry - Neurologic Neurologic: CNII-XII intact, moves all extremities HEART Score - HEART Score Troponin: Troponin T < 0.010 ng/mL (0.00-0.029) 12/20/20 19:27 Results - Labs CBC & Chem 7: 12/24/20 12:29 12/26/20 04:29 Labs: Laboratory Last Values WBC 2.5 K/mm3 (4.5-11.0) L 12/24/20 12:29 RBC 3.49 M/mm3 (3.65-5.03) L 12/24/20 12:29 Hgb 11.3 gm/dl (10.1-14.3) 12/24/20 12:29 Hct 32.7 % (30.3-42.9) 12/24/20 12:29 MCV 94 fl (79-97) 12/24/20 12:29 MCH 32 pg (28-32) 12/24/20 12:29 MCHC 35 % (30-34) H 12/24/20 12:29 RDW 14.2 % (13.2-15.2) 12/24/20 12:29 Plt Count 132 K/mm3 (140-440) L 12/24/20 12:29 Lymph % (Auto) 17.2 % (13.4-35.0) 12/24/20 12: [place] % (Auto) 7.6 % (0.0-7.3) H 12/24/20 12:29 Eos % (Auto) 0.0 % (0.0-4.3) 12/24/20 12: Baso % (Auto) 0.5 % (0.0-1.8) 12/24/20 12:29 Lymph # (Auto) 0.4 K/mm3 (1.2-5.4) L 12/24/20 12:29 [place] # (Auto) 0.2 K/mm3 (0.0-0.8) 12/24/20 12:29 Eos # (Auto) 0.0 K/mm3 (0.0-0.4) 12/24/20 12: Baso # (Auto) 0.0 K/mm3 (0.0-0.1) 12/24/20 12:29 Add Manual Diff Complete 12/23/20 14:09 Total Counted 100 12/23/20 14:09 Seg Neutrophils % 74.7 % (40.0-70.0) H 12/24/20 12:29 Seg Neuts % (Manual) 87.0 % (40.0-70.0) H 12/23/20 14:09 Band Neutrophils % 4.0 % 12/23/20 14:09 Lymphocytes % (Manual) 3.0 % (13.4-35.0) L 12/23/20 14:09 Reactive Lymphs % (Man) 1.0 % 12/23/20 14:09 Monocytes % (Manual) 5.0 % (0.0-7.3) 12/23/20 14:09 Nucleated RBC % 1.0 % (0.0-0.9) H 12/23/20 14:09 Seg Neutrophils # 1.8 K/mm3 (1.8-7.7) 12/24/20 12:29 Seg Neutrophils # Man 1.6 K/mm3 (1.8-7.7) L 12/23/20 14:09 Band Neutrophils # 0.1 K/mm3 12/23/20 14:09 Lymphocytes # (Manual) 0.1 K/mm3 (1.2-5.4) L 12/23/20 14:09 Abs React Lymphs (Man) 0.0 K/mm3 12/23/20 14:09 Monocytes # (Manual) 0.1 K/mm3 (0.0-0.8) 12/23/20 14:09 Eosinophils # (Manual) 0.0 K/mm3 (0.0-0.4) 12/23/20 14:09 Basophils # (Manual) 0.0 K/mm3 (0.0-0.1) 12/23/20 14:09 Metamyelocytes # 0.0 K/mm3 12/23/20 14:09 Myelocytes # 0.0 K/mm3 12/23/20 14:09 Promyelocytes # 0.0 K/mm3 12/23/20 14:09 Blast Cells # 0.0 K/mm3 12/23/20 14:09 WBC Morphology Not Reportable 12/23/20 14:09 Hypersegmented Neuts Not Reportable 12/23/20 14:09 Hyposegmented Neuts Not Reportable 12/23/20 14:09 Hypogranular Neuts Not Reportable 12/23/20 14:09 Smudge Cells Not Reportable 12/23/20 14:09 Toxic Granulation Not Reportable 12/23/20 14:09 Toxic Vacuolation Not Reportable 12/23/20 14:09 Dohle Bodies Not Reportable 12/23/20 14:09 Pelger-Huet Anomaly Not Reportable 12/23/20 14:09 Jair Rods Not Reportable 12/23/20 14:09 Platelet Estimate Consistent w auto 12/23/20 14:09 Clumped Platelets Not Reportable 12/23/20 14:09 Plt Clumps, EDTA Not Reportable 12/23/20 14:09 Large Platelets Not Reportable 12/23/20 14:09 Giant Platelets Not Reportable 12/23/20 14:09 Platelet Satelliting Not Reportable 12/23/20 14:09 Plt Morphology Comment Not Reportable 12/23/20 14:09 RBC Morphology Normal 12/23/20 14:09 Dimorphic RBCs Not Reportable 12/23/20 14:09 Polychromasia Not Reportable 12/23/20 14:09 Hypochromasia Not Reportable 12/23/20 14:09 Poikilocytosis Not Reportable 12/23/20 14:09 Anisocytosis Not Reportable 12/23/20 14:09 Microcytosis Not Reportable 12/23/20 14:09 Macrocytosis Not Reportable 12/23/20 14:09 Spherocytes Not Reportable 12/23/20 14:09 Pappenheimer Bodies Not Reportable 12/23/20 14:09 Sickle Cells Not Reportable 12/23/20 14:09 Target Cells Not Reportable 12/23/20 14:09 Tear Drop Cells Not Reportable 12/23/20 14:09 Ovalocytes Not Reportable 12/23/20 14:09 Helmet Cells Not Reportable 12/23/20 14:09 [place] Bodies Not Reportable 12/23/20 14:09 [place] Rings Not Reportable 12/23/20 14:09 [place] Cells Not Reportable 12/23/20 14:09 Bite Cells Not Reportable 12/23/20 14:09 Crenated Cell Not Reportable 12/23/20 14:09 Elliptocytes Not Reportable 12/23/20 14:09 Acanthocytes (Spur) Not Reportable 12/23/20 14:09 Rouleaux Not Reportable 12/23/20 14:09 Hemoglobin C Crystals Not Reportable 12/23/20 14:09 Schistocytes Not Reportable 12/23/20 14:09 Malaria parasites Not Reportable 12/23/20 14:09 Giorgi Bodies Not Reportable 12/23/20 14:09 Hem Pathologist Commnt No 12/23/20 14:09 PT 13.1 Sec. (12.2-14.9) 12/21/20 05:50 INR 1.01 (0.87-1.13) 12/21/20 05:50 D-Dimer 159.26 ng/mlDDU (0-234) 12/22/20 14:18 Sodium 139 mmol/L (137-145) 12/26/20 04:29 Potassium 4.4 mmol/L (3.6-5.0) 12/26/20 04:29 Chloride 101.0 mmol/L (98-107) 12/26/20 04:29 Carbon Dioxide 30 mmol/L (22-30) 12/26/20 04:29 Anion Gap 12 mmol/L 12/26/20 04:29 BUN 22 mg/dL (7-17) H 12/26/20 04:29 Creatinine 0.9 mg/dL (0.6-1.2) 12/26/20 04:29 Estimated GFR > 60 ml/min 12/26/20 04:29 BUN/Creatinine Ratio 24 % 12/26/20 04:29 Glucose 327 mg/dL (65-100) H 12/26/20 04:29 POC Glucose 353 mg/dL (70-105) H 12/26/20 07:42 Hemoglobin A1c 10.3 % (4-6) H 12/21/20 05:50 Lactic Acid 1.40 mmol/L (0.7-2.0) 12/21/20 05:50 Calcium 7.9 mg/dL (8.4-10.2) L 12/26/20 04:29 Magnesium 1.90 mg/dL (1.7-2.3) 12/26/20 04:29 Ferritin 1295.0 ng/mL (10.0-200.0) H 12/22/20 14:18 Total Bilirubin 0.40 mg/dL (0.1-1.2) 12/24/20 12:29 AST 50 units/L (5-40) H 12/24/20 12:29 ALT 41 units/L (7-56) 12/24/20 12:29 Alkaline Phosphatase 262 units/L (35-129) H 12/24/20 12:29 Lactate Dehydrogenase 620 units/L (91-180) H 12/22/20 14:18 Troponin T < 0.010 ng/mL (0.00-0.029) 12/20/20 19:27 C-Reactive Protein 2.70 mg/dL (0.00-1.30) H 12/22/20 14:18 Total Protein 7.4 g/dL (6.3-8.2) 12/24/20 12:29 Albumin 2.8 g/dL (3.9-5) L 12/24/20 12:29 Albumin/Globulin Ratio 0.6 % 12/24/20 12:29 Procalcitonin 0.32 ng/mL (<0.15) 12/20/20 19:43 Urine Color Yellow (Yellow) 12/22/20 03:00 Urine Turbidity Clear (Clear) 12/22/20 03:00 Urine pH 5.0 (5.0-7.0) 12/22/20 03:00 Ur Specific [place] 1.019 (1.003-1.030) 12/22/20 03:00 Urine Protein 100 mg/dl mg/dL (Negative) 12/22/20 03:00 Urine Glucose (UA) 50 mg/dL (Negative) 12/22/20 03:00 Urine Ketones Neg mg/dL (Negative) 12/22/20 03:00 Urine Blood Sm (Negative) 12/22/20 03:00 Urine Nitrite Neg (Negative) 12/22/20 03:00 Urine Bilirubin Neg (Negative) 12/22/20 03:00 Urine Urobilinogen 2.0 mg/dL (<2.0) 12/22/20 03:00 Ur Leukocyte Esterase Neg (Negative) 12/22/20 03:00 Urine WBC (Auto) 1.0 /HPF (0.0-6.0) 12/22/20 03:00 Urine RBC (Auto) 1.0 /HPF (0.0-6.0) 12/22/20 03:00 U Epithel Cells (Auto) 3.0 /HPF (0-13.0) 12/22/20 03:00 Urine Bacteria (Auto) 1+ /HPF (Negative) 12/22/20 03:00 Urine Mucus Few /HPF 12/22/20 03:00 Urine Eosinophils None seen (None Seen) 12/22/20 03:00 Urine Creatinine 117.9 mg/dL (0.1-20.0) H 12/22/20 03:00 Urine Sodium 67 mmol/L 12/22/20 03:00 Coronavirus (PCR) Positive (Negative) A 12/21/20 10:28 Hepatitis A IgM Ab Non-reactive (NonReactive) 12/22/20 06:00 Hep Bs Antigen Non-reactive (Negative) 12/22/20 06:00 Hep B Core IgM Ab Non-reactive (NonReactive) 12/22/20 06:00 Hepatitis C Antibody Non-reactive (NonReactive) 12/22/20 06:00 Microbiology: Microbiology 12/20/20 19:27 Peripheral/Venous Blood Culture - Final NO GROWTH AFTER 5 DAYS 12/20/20 19:43 Peripheral/Venous Blood Culture - Final NO GROWTH AFTER 5 DAYS Curtis/IV: Voiding Method Indwelling Catheter Active Medications - Current Medications Current Medications: Generic Name Dose Route Start Last Admin Trade Name Freq PRN Reason Stop Dose Admin Acetaminophen 650 mg 12/20/20 23:15 12/24/20 09:40 Acetaminophen 325 Mg Tab PO 650 mg Q4H PRN Administration Pain MILD(1-3)/Fever >100.5/VARGAS Albuterol 2.5 mg 12/21/20 12:00 Albuterol 2.5 Mg/3 Ml Nebu IH Q4HRT PRN Shortness Of Breath Dextrose 50 ml 12/20/20 23:15 Dextrose 50% In Water (25gm) 50 Ml Syringe IV Q30MIN PRN Hypoglycemia Protocol Enoxaparin Sodium 40 mg 12/21/20 22:00 12/25/20 22:00 Enoxaparin 40 Mg/0.4 Ml Inj SUB-Q 40 mg QDAY@2200 TAMEKA Administration Protocol Gabapentin 800 mg 12/21/20 22:00 12/25/20 22:00 Gabapentin 400 Mg Cap PO 800 mg BID TAMEKA Administration Glipizide 10 mg 12/21/20 10:00 12/25/20 16:20 Glipizide 10 Mg Tab PO 10 mg BIDDIAB TAMEKA Administration Guaifenesin 200 mg 12/21/20 16:00 12/22/20 20:41 Guaifenesin 100 Mg/5 Ml Oral Liqd PO 200 mg Q4H PRN Administration Cough Insulin Human Lispro 0 unit 12/21/20 07:30 12/25/20 22:01 Insulin Lispro 100 Unit/Ml SUB-Q 6 unit ACHS TAMEKA Administration Protocol Lorazepam 0.5 mg 12/23/20 20:12 12/24/20 16:12 Lorazepam 2 Mg/Ml Vial IV 0.5 mg Q6H PRN Administration Anxiety Magnesium Hydroxide 30 ml 12/20/20 23:15 Magnesium Hydroxide (Mom) Oral Liqd Udc PO Q4H PRN Constipation Methylprednisolone Sodium Succinate 60 mg 12/23/20 22:00 12/26/20 05:50 Methylprednisolone Sod Succinate 125 Mg/2 Ml Inj IV 60 mg Q8HR TAMEKA Administration Morphine Sulfate 2 mg 12/20/20 23:15 12/25/20 22:10 Morphine 2 Mg/1 Ml Inj IV 2 mg Q4H PRN Administration Pain, Moderate (4-6) Ondansetron HCl 4 mg 12/20/20 23:15 Ondansetron 4 Mg/2 Ml Inj IV Q8H PRN Nausea And Vomiting Oxycodone/Acetaminophen 1 tab 12/21/20 16:00 12/22/20 20:41 Oxycodone /Acetaminophen 5-325mg Tab PO 1 tab Q6H PRN Administration Pain, Moderate (4-6) Sodium Chloride 10 ml 12/21/20 10:00 12/25/20 22:01 Sodium Chloride 0.9% 10 Ml Flush Syringe IV 10 ml BID TAMEKA Administration Sodium Chloride 10 ml 12/20/20 23:15 12/21/20 18:48 Sodium Chloride 0.9% 10 Ml Flush Syringe IV 10 ml PRN PRN Administration LINE FLUSH Sodium Chloride 1 applic 12/22/20 12:00 12/25/20 22:02 [place] Saline Nasal Gel 14.1 Gm NS 1 applic BID TAMEKA Administration Nutrition/Malnutrition Assess - Dietary Evaluation Nutrition/Malnutrition Findings: Nutrition Notes Start: 12/21/20 09:35 Freq: Status: Active Protocol: Document 12/23/20 08:33 AT (Rec: 12/23/20 08:41 AT [id number]) Co-Sign 12/23/20 08:33 MK Nutrition Notes Initial or Follow up Reassessment Current Diagnosis Diabetes,Hypertension, Respiratory Failure Other Pertinent Diagnosis pneu, COVID-19(+), SOB, Diabetic Neuropathy Current Diet NPO Labs/Tests POC BG 493 4/ BUN 34 Cr 1.3 Ca 7.5 Pertinent Medications NS at 75 mL/hr Height 5 ft 7 in Weight 142.882 kg [place] Body Weight (kg) 61.36 BMI 49.3 Weight Status Morbidly Obese Subjective/Other Information Follow up for intakes, ONS tolerance, and diet education needs. Pt is NPO at this time and consumed between 25-50% of meals yesterday. Could not reach pt by phone x2. Will continue to follow. Percent of energy/protein needs met: 0%/0% Burn Absent Trauma Absent Current % PO Negligible Minimum of two criteria No physical signs of malnutrition #1 Nutrition Diagnosis Inadequate oral intake Diagnosis Progress(for reassessment Continues documentation) Is patient on ventilator? No Is Patient Ambulatory and/or Out of Bed Yes REE-([place] [place]-ambulatory/OOB) [ 2673.372 [id number]] Kcal/Kg value to use for calculation 14 Approximate Energy Requirements Using 2000 kcal/Kg Calculation Used for Recommendations Kcal/kg Additional Notes PRO needs: 82-102g (0.8-1g/kg AdBW 102 kg) Fluid needs: 1 mL/kcal or per MD Nutrition Intervention Change Diet Order: Continue current Add Supplement/Snack (indicate name/kcal Ensure High Protein BID /protein ) Provides kCal: 320 Provides Protein (gm) 32 Goal #1 Meet at least 75% of energy and protein needs via diet and ONS Anticipated Discharge Needs: Cardiac/Consistent CHO Follow-Up By: 12/27/20 Additional Comments F/U for stable intakes, ONS tolerance
--- NOTE | 2020-12-26 08:53 | Progress Note ---
Assessment and Plan 1. Acute kidney injury: HOMA in the setting of vasomotor insult vs Covid infection. Renal US negative. Monitor renal function. Creatinine level is better. Avoid nephrotoxic agents. Meds dosage based on GFR. 2. FEN: Hyperkalemia, improved, monitor. Monitor volume status and lytes. 3. Covid infection: Isolation, follow inflammatory markers. Followed by ID. 4. Acute on chronic hypoxemic respiratory failure, POA: 2/2 COVID infection. CXR showed mild patchy parenchymal opacities bilaterally. On BIPAP. 5. DM type 2: SSI. Monitor bl sugar. 6. HTN: Monitor BP. Adjust meds as needed. 7. Leukopenia: Monitor. 8. Elevated Transaminases: Trend. Subjective: Patient was seen and examined at the bedside. Patient is in IMCU. Objective: General appearance: well-developed, appears stated age, morbidly obese, on BIPAP HEENT: ATNC Neck: trachea midline Respiratory: coarse breath sounds Heart: regular, S1S2, no murmur Gastrointestinal: soft, normoactive bowel sounds, not tender Integumentary: no obvious rash Ext: no edema Neurologic: able to move extremities : Curtis catheter Subjective Date of service: 12/26/20 Principal diagnosis: COVID-19 Objective - Vital Signs Vital signs: Vital Signs - 12hr 12/25/20 12/25/20 12/25/20 21:01 21:31 22:00 Temperature Pulse Rate 64 69 69 Pulse Rate [ From Monitor] Respiratory 29 H 32 H Rate Blood Pressure 164/83 172/92 O2 Sat by Pulse 97 96 Oximetry 12/25/20 12/25/20 12/25/20 22:01 22:31 22:37 Temperature Pulse Rate 73 72 76 Pulse Rate [ From Monitor] Respiratory 38 H 33 H 34 H Rate Blood Pressure 177/86 177/87 177/87 O2 Sat by Pulse 94 97 96 Oximetry 12/25/20 12/25/20 12/26/20 23:00 23:30 00:00 Temperature 98.8 F Pulse Rate 70 67 62 Pulse Rate [ 72 From Monitor] Respiratory 28 H 27 H 20 Rate Blood Pressure 177/87 158/87 O2 Sat by Pulse 95 93 98 Oximetry 12/26/20 12/26/20 12/26/20 00:01 00:08 00:31 Temperature Pulse Rate 67 79 74 Pulse Rate [ From Monitor] Respiratory 31 H 40 H 27 H Rate Blood Pressure 157/83 157/83 148/86 O2 Sat by Pulse 94 90 97 Oximetry 12/26/20 12/26/20 12/26/20 01:01 01:30 02:00 Temperature Pulse Rate 60 68 67 Pulse Rate [ From Monitor] Respiratory 15 20 29 H Rate Blood Pressure 154/79 154/79 162/94 O2 Sat by Pulse 98 97 98 Oximetry 12/26/20 12/26/20 12/26/20 02:31 03:00 03:30 Temperature Pulse Rate 68 71 70 Pulse Rate [ From Monitor] Respiratory 22 28 H 26 H Rate Blood Pressure 147/79 149/92 155/92 O2 Sat by Pulse 97 95 98 Oximetry 12/26/20 12/26/20 12/26/20 03:31 04:00 04:01 Temperature 98.0 F Pulse Rate 73 61 Pulse Rate [ 72 From Monitor] Respiratory 29 H 20 20 Rate Blood Pressure 149/92 159/77 O2 Sat by Pulse 96 98 97 Oximetry 12/26/20 12/26/20 12/26/20 04:07 04:31 05:00 Temperature 98.0 F Pulse Rate 63 64 Pulse Rate [ From Monitor] Respiratory 23 29 H Rate Blood Pressure 134/80 156/85 O2 Sat by Pulse 95 97 Oximetry 12/26/20 12/26/20 12/26/20 05:31 06:01 06:30 Temperature Pulse Rate 60 74 67 Pulse Rate [ From Monitor] Respiratory 25 H 27 H 26 H Rate Blood Pressure 158/80 144/87 153/90 O2 Sat by Pulse 98 98 96 Oximetry 12/26/20 12/26/20 12/26/20 07:01 07:30 08:00 Temperature 97.9 F Pulse Rate 59 L 69 Pulse Rate [ From Monitor] Respiratory 22 28 H Rate Blood Pressure 146/83 151/82 O2 Sat by Pulse 97 98 Oximetry - Lab 12/27/20 04:25 12/27/20 04:25 Most recent lab results Calcium 7.9 mg/dL (8.4-10.2) L 12/26/20 04:29 Magnesium 1.90 mg/dL (1.7-2.3) 12/26/20 04:29 Urine Creatinine 117.9 mg/dL (0.1-20.0) H 12/22/20 03:00 Urine Sodium 67 mmol/L 12/22/20 03:00 Medications & Allergies - Medications Allergies/Adverse Reactions: Allergies No Known Allergies Allergy (Verified 12/29/14 22:38) Home Medications: Home Medications Medication Instructions Recorded Confirmed Last Taken Type Cyclobenzaprine [Flexeril 10 MG 10 mg PO QHS PRN 12/21/20 12/21/20 Unknown History TAB] Gabapentin [Neurontin] 800 mg PO TID 12/21/20 12/21/20 12/20/20 History metFORMIN [Glucophage] 1,000 mg PO BID 12/21/20 12/21/20 12/20/20 History traMADoL [Ultram 50 MG tab] 50 mg PO BID PRN MDD 100 12/21/20 12/21/20 Unknown History Levothyroxine 137 mcg PO QDAY 12/26/20 12/26/20 12/20/20 08:00 History Active Medications: Generic Name Dose Route Start Last Admin Trade Name Freq PRN Reason Stop Dose Admin Acetaminophen 650 mg 12/20/20 23:15 12/24/20 09:40 Acetaminophen 325 Mg Tab PO 650 mg Q4H PRN Administration Pain MILD(1-3)/Fever >100.5/VARGAS Albuterol 2.5 mg 12/21/20 12:00 Albuterol 2.5 Mg/3 Ml Nebu IH Q4HRT PRN Shortness Of Breath Dextrose 50 ml 12/20/20 23:15 Dextrose 50% In Water (25gm) 50 Ml Syringe IV Q30MIN PRN Hypoglycemia Protocol Enoxaparin Sodium 40 mg 12/21/20 22:00 12/25/20 22:00 Enoxaparin 40 Mg/0.4 Ml Inj SUB-Q 40 mg QDAY@2200 TAMEKA Administration Protocol Gabapentin 800 mg 12/21/20 22:00 12/25/20 22:00 Gabapentin 400 Mg Cap PO 800 mg BID TAMEKA Administration Glipizide 10 mg 12/21/20 10:00 12/25/20 16:20 Glipizide 10 Mg Tab PO 10 mg BIDDIAB TAMEKA Administration Guaifenesin 200 mg 12/21/20 16:00 12/22/20 20:41 Guaifenesin 100 Mg/5 Ml Oral Liqd PO 200 mg Q4H PRN Administration Cough Insulin Glargine 8 units 12/26/20 22:00 Insulin Glargine 100 Units/Ml SUB-Q QHS TAMEKA Insulin Human Lispro 0 unit 12/21/20 07:30 12/25/20 22:01 Insulin Lispro 100 Unit/Ml SUB-Q 6 unit ACHS TAMEKA Administration Protocol Lorazepam 0.5 mg 12/23/20 20:12 12/24/20 16:12 Lorazepam 2 Mg/Ml Vial IV 0.5 mg Q6H PRN Administration Anxiety Magnesium Hydroxide 30 ml 12/20/20 23:15 Magnesium Hydroxide (Mom) Oral Liqd Udc PO Q4H PRN Constipation Methylprednisolone Sodium Succinate 60 mg 12/23/20 22:00 12/26/20 05:50 Methylprednisolone Sod Succinate 125 Mg/2 Ml Inj IV 60 mg Q8HR TAMEKA Administration Morphine Sulfate 2 mg 12/20/20 23:15 12/25/20 22:10 Morphine 2 Mg/1 Ml Inj IV 2 mg Q4H PRN Administration Pain, Moderate (4-6) Ondansetron HCl 4 mg 12/20/20 23:15 Ondansetron 4 Mg/2 Ml Inj IV Q8H PRN Nausea And Vomiting Oxycodone/Acetaminophen 1 tab 12/21/20 16:00 12/22/20 20:41 Oxycodone /Acetaminophen 5-325mg Tab PO 1 tab Q6H PRN Administration Pain, Moderate (4-6) Sodium Chloride 10 ml 12/21/20 10:00 12/25/20 22:01 Sodium Chloride 0.9% 10 Ml Flush Syringe IV 10 ml BID TAMEKA Administration Sodium Chloride 10 ml 12/20/20 23:15 12/21/20 18:48 Sodium Chloride 0.9% 10 Ml Flush Syringe IV 10 ml PRN PRN Administration LINE FLUSH Sodium Chloride 1 applic 12/22/20 12:00 12/25/20 22:02 [place] Saline Nasal Gel 14.1 Gm NS 1 applic BID TAMEKA Administration
[2020-12-26] MEDS: AYR SALINE NASAL GEL 14.1 GM NS SCH ×2 (09:16→22:00)
[2020-12-26] MEDS: GABAPENTIN 400 MG CAP PO SCH ×2 (09:16→21:59)
[2020-12-26] MEDS: glipiZIDE 10 MG TAB PO SCH ×2 (09:16→17:39)
[2020-12-26] MEDS: INSULIN LISPRO 100 UNIT/ML SUB-Q SCH ×4 (09:16→21:59)
[2020-12-26] MEDS ORDERED: TOCILIZUMAB 800 MG in SODIUM CHLORIDE 0.9% 100 ML IV ONE (11:00)
[2020-12-26 12:05] LABS: C-Reactive Protein 3.7 mg/dL (0.00-1.30)
--- NOTE | 2020-12-26 12:28 | Progress Note ---
Assessment and Plan - Patient Problems (1) Asthma Current Visit: Yes Status: Acute (2) Diabetes Current Visit: Yes Status: Acute (3) HTN (hypertension) Current Visit: Yes Status: Acute (4) Diabetic neuropathy Current Visit: Yes Status: Acute (5) HOMA (acute kidney injury) Current Visit: Yes Status: Acute (6) Acute respiratory failure with hypoxia Current Visit: Yes Status: Acute (7) Elevated liver enzymes Current Visit: Yes Status: Acute (8) Full code status Current Visit: Yes Status: Acute (9) Pneumonia due to COVID-19 virus Current Visit: Yes Status: Acute (10) SIRS (systemic inflammatory response syndrome) Current Visit: Yes Status: Acute (11) Morbid obesity Current Visit: No Status: Acute (12) Headache Current Visit: Yes Status: Acute (13) ILD (interstitial lung disease) Current Visit: Yes Status: Acute Subjective Principal diagnosis: COVID-19 Interval history: pt awake. reports that she feel better in prone position Objective Vital Signs - 12hr 12/26/20 12/26/20 12/26/20 00:31 01:01 01:30 Temperature Pulse Rate 74 60 68 Pulse Rate [ From Monitor] Respiratory 27 H 15 20 Rate Blood Pressure 148/86 154/79 154/79 O2 Sat by Pulse 97 98 97 Oximetry 12/26/20 12/26/20 12/26/20 02:00 02:31 03:00 Temperature Pulse Rate 67 68 71 Pulse Rate [ From Monitor] Respiratory 29 H 22 28 H Rate Blood Pressure 162/94 147/79 149/92 O2 Sat by Pulse 98 97 95 Oximetry 12/26/20 12/26/20 12/26/20 03:30 03:31 04:00 Temperature 98.0 F Pulse Rate 70 73 Pulse Rate [ 72 From Monitor] Respiratory 26 H 29 H 20 Rate Blood Pressure 155/92 149/92 O2 Sat by Pulse 98 96 98 Oximetry 12/26/20 12/26/20 12/26/20 04:01 04:07 04:31 Temperature 98.0 F Pulse Rate 61 63 Pulse Rate [ From Monitor] Respiratory 20 23 Rate Blood Pressure 159/77 134/80 O2 Sat by Pulse 97 95 Oximetry 12/26/20 12/26/20 12/26/20 05:00 05:31 06:01 Temperature Pulse Rate 64 60 74 Pulse Rate [ From Monitor] Respiratory 29 H 25 H 27 H Rate Blood Pressure 156/85 158/80 144/87 O2 Sat by Pulse 97 98 98 Oximetry 12/26/20 12/26/20 12/26/20 06:30 07:01 07:30 Temperature Pulse Rate 67 59 L 69 Pulse Rate [ From Monitor] Respiratory 26 H 22 28 H Rate Blood Pressure 153/90 146/83 151/82 O2 Sat by Pulse 96 97 98 Oximetry 12/26/20 12/26/20 12/26/20 08:00 08:31 09:00 Temperature 97.9 F Pulse Rate 65 61 72 Pulse Rate [ 80 From Monitor] Respiratory 22 19 33 H Rate Blood Pressure 157/83 163/77 166/92 O2 Sat by Pulse 96 98 95 Oximetry 12/26/20 12/26/20 12/26/20 09:30 09:31 10:01 Temperature Pulse Rate 74 74 80 Pulse Rate [ From Monitor] Respiratory 35 H 36 H 34 H Rate Blood Pressure 184/105 184/105 181/99 O2 Sat by Pulse 93 96 95 Oximetry 12/26/20 11:15 Temperature Pulse Rate 78 Pulse Rate [ From Monitor] Respiratory 343 H Rate Blood Pressure 170/110 O2 Sat by Pulse 97 Oximetry Constitutional: no acute distress, alert (obese), other (on BIPAP) Eyes: non-icteric ENT: oropharynx moist Neck: supple Effort: normal Ascultation: Bilateral: clear, diminished breath sounds (anteriorly) Cardiovascular: regular rate and rhythm (no mrg) Gastrointestinal: normoactive bowel sounds, soft, non-tender, non-distended Integumentary: normal Extremities: no cyanosis, no edema, pink and warm Neurologic: normal mental status, non-focal exam Psychiatric: mood appropriate, affect normal CBC and BMP: 12/24/20 12:29 12/26/20 04:29 ABG, PT/INR, D-dimer: PT/INR, D-dimer PT 13.1 Sec. (12.2-14.9) 12/21/20 05:50 INR 1.01 (0.87-1.13) 12/21/20 05:50 D-Dimer 1954.54 ng/mlDDU (0-234) H 12/26/20 11:08 Abnormal lab findings: Abnormal Labs 12/20/20 12/20/20 12/20/20 19:27 19:27 19:27 WBC 2.9 L RBC MCHC Plt Count 116 L Lymph % (Auto) 41.2 H Waller % (Auto) 13.2 H Lymph # (Auto) Seg Neutrophils % Seg Neuts % (Manual) Lymphocytes % (Manual) Nucleated RBC % Seg Neutrophils # 1.3 L Seg Neutrophils # Man Lymphocytes # (Manual) D-Dimer 260.58 H Sodium 135 L Potassium Chloride 96.1 L BUN 23 H Creatinine 1.4 H Glucose 295 H POC Glucose Hemoglobin A1c Calcium 8.3 L Ferritin AST 125 H ALT 96 H Alkaline Phosphatase 323 H Lactate Dehydrogenase C-Reactive Protein Total Protein 8.7 H Albumin 3.7 L Urine Creatinine Coronavirus (PCR) 12/20/20 12/20/20 12/21/20 19:43 19:43 05:50 WBC RBC MCHC Plt Count Lymph % (Auto) Waller % (Auto) Lymph # (Auto) Seg Neutrophils % Seg Neuts % (Manual) Lymphocytes % (Manual) Nucleated RBC % Seg Neutrophils # Seg Neutrophils # Man Lymphocytes # (Manual) D-Dimer Sodium Potassium Chloride BUN Creatinine Glucose 297 H POC Glucose Hemoglobin A1c 10.3 H Calcium Ferritin 1420.0 H AST ALT Alkaline Phosphatase Lactate Dehydrogenase 491 H C-Reactive Protein 5.50 H Total Protein Albumin Urine Creatinine Coronavirus (PCR) 12/21/20 12/21/20 12/21/20 05:50 05:50 08:04 WBC 1.6 L* RBC 3.40 L MCHC Plt Count 104 L Lymph % (Auto) Waller % (Auto) Lymph # (Auto) Seg Neutrophils % Seg Neuts % (Manual) 82.0 H Lymphocytes % (Manual) Nucleated RBC % Seg Neutrophils # Seg Neutrophils # Man 1.3 L Lymphocytes # (Manual) 0.3 L D-Dimer Sodium 132 L Potassium 5.7 H D Chloride 95.7 L BUN 33 H Creatinine 1.7 H Glucose 500 H POC Glucose 483 H Hemoglobin A1c Calcium 7.7 L Ferritin AST ALT Alkaline Phosphatase Lactate Dehydrogenase C-Reactive Protein Total Protein Albumin Urine Creatinine Coronavirus (PCR) 12/21/20 12/21/20 12/21/20 10:28 12:05 16:54 WBC RBC MCHC Plt Count Lymph % (Auto) Waller % (Auto) Lymph # (Auto) Seg Neutrophils % Seg Neuts % (Manual) Lymphocytes % (Manual) Nucleated RBC % Seg Neutrophils # Seg Neutrophils # Man Lymphocytes # (Manual) D-Dimer Sodium Potassium Chloride BUN Creatinine Glucose POC Glucose 482 H 374 H Hemoglobin A1c Calcium Ferritin AST ALT Alkaline Phosphatase Lactate Dehydrogenase C-Reactive Protein Total Protein Albumin Urine Creatinine Coronavirus (PCR) Positive A 12/21/20 12/21/20 12/22/20 18:24 22:12 03:00 WBC RBC MCHC Plt Count Lymph % (Auto) Waller % (Auto) Lymph # (Auto) Seg Neutrophils % Seg Neuts % (Manual) Lymphocytes % (Manual) Nucleated RBC % Seg Neutrophils # Seg Neutrophils # Man Lymphocytes # (Manual) D-Dimer Sodium 131 L Potassium Chloride 95.2 L BUN 37 H Creatinine 1.4 H Glucose 417 H POC Glucose 358 H Hemoglobin A1c Calcium 7.5 L Ferritin AST 82 H ALT 69 H Alkaline Phosphatase 262 H Lactate Dehydrogenase C-Reactive Protein Total Protein Albumin 3.0 L Urine Creatinine 117.9 H Coronavirus (PCR) 12/22/20 12/22/20 12/22/20 05:29 08:19 11:18 WBC RBC MCHC Plt Count Lymph % (Auto) Waller % (Auto) Lymph # (Auto) Seg Neutrophils % Seg Neuts % (Manual) Lymphocytes % (Manual) Nucleated RBC % Seg Neutrophils # Seg Neutrophils # Man Lymphocytes # (Manual) D-Dimer Sodium Potassium Chloride BUN 34 H Creatinine 1.3 H Glucose 169 H POC Glucose 136 H 132 H Hemoglobin A1c Calcium 7.5 L Ferritin AST 74 H ALT 60 H Alkaline Phosphatase 249 H Lactate Dehydrogenase C-Reactive Protein Total Protein Albumin 3.1 L Urine Creatinine Coronavirus (PCR) 12/22/20 12/22/20 12/22/20 14:18 14:18 16:36 WBC RBC MCHC Plt Count Lymph % (Auto) Waller % (Auto) Lymph # (Auto) Seg Neutrophils % Seg Neuts % (Manual) Lymphocytes % (Manual) Nucleated RBC % Seg Neutrophils # Seg Neutrophils # Man Lymphocytes # (Manual) D-Dimer Sodium Potassium Chloride BUN Creatinine Glucose POC Glucose 440 H Hemoglobin A1c Calcium Ferritin 1295.0 H AST ALT Alkaline Phosphatase Lactate Dehydrogenase 620 H C-Reactive Protein 2.70 H Total Protein Albumin Urine Creatinine Coronavirus (PCR) 12/22/20 12/23/20 12/23/20 21:07 08:09 11:30 WBC RBC MCHC Plt Count Lymph % (Auto) Waller % (Auto) Lymph # (Auto) Seg Neutrophils % Seg Neuts % (Manual) Lymphocytes % (Manual) Nucleated RBC % Seg Neutrophils # Seg Neutrophils # Man Lymphocytes # (Manual) D-Dimer Sodium Potassium Chloride BUN Creatinine Glucose POC Glucose 493 H 156 H 185 H Hemoglobin A1c Calcium Ferritin AST ALT Alkaline Phosphatase Lactate Dehydrogenase C-Reactive Protein Total Protein Albumin Urine Creatinine Coronavirus (PCR) 12/23/20 12/23/20 12/23/20 14:09 14:09 16:26 WBC 1.8 L* RBC 3.45 L MCHC Plt Count 114 L Lymph % (Auto) Waller % (Auto) Lymph # (Auto) Seg Neutrophils % Seg Neuts % (Manual) 87.0 H Lymphocytes % (Manual) 3.0 L Nucleated RBC % 1.0 H Seg Neutrophils # Seg Neutrophils # Man 1.6 L Lymphocytes # (Manual) 0.1 L D-Dimer Sodium Potassium Chloride BUN 19 H Creatinine Glucose 292 H POC Glucose 351 H Hemoglobin A1c Calcium 7.4 L Ferritin AST 71 H ALT Alkaline Phosphatase 264 H Lactate Dehydrogenase C-Reactive Protein Total Protein Albumin 3.0 L Urine Creatinine Coronavirus (PCR) 12/23/20 12/24/20 12/24/20 21:11 08:21 11:58 WBC RBC MCHC Plt Count Lymph % (Auto) Waller % (Auto) Lymph # (Auto) Seg Neutrophils % Seg Neuts % (Manual) Lymphocytes % (Manual) Nucleated RBC % Seg Neutrophils # Seg Neutrophils # Man Lymphocytes # (Manual) D-Dimer Sodium Potassium Chloride BUN Creatinine Glucose POC Glucose 288 H 286 H 277 H Hemoglobin A1c Calcium Ferritin AST ALT Alkaline Phosphatase Lactate Dehydrogenase C-Reactive Protein Total Protein Albumin Urine Creatinine Coronavirus (PCR) 12/24/20 12/24/20 12/24/20 12:29 12:29 16:05 WBC 2.5 L RBC 3.49 L MCHC 35 H Plt Count 132 L Lymph % (Auto) Waller % (Auto) 7.6 H Lymph # (Auto) 0.4 L Seg Neutrophils % 74.7 H Seg Neuts % (Manual) Lymphocytes % (Manual) Nucleated RBC % Seg Neutrophils # Seg Neutrophils # Man Lymphocytes # (Manual) D-Dimer Sodium Potassium Chloride BUN Creatinine Glucose 256 H POC Glucose 282 H Hemoglobin A1c Calcium 7.8 L Ferritin AST 50 H ALT Alkaline Phosphatase 262 H Lactate Dehydrogenase C-Reactive Protein Total Protein Albumin 2.8 L Urine Creatinine Coronavirus (PCR) 12/24/20 12/25/20 12/25/20 22:01 07:58 11:38 WBC RBC MCHC Plt Count Lymph % (Auto) Waller % (Auto) Lymph # (Auto) Seg Neutrophils % Seg Neuts % (Manual) Lymphocytes % (Manual) Nucleated RBC % Seg Neutrophils # Seg Neutrophils # Man Lymphocytes # (Manual) D-Dimer Sodium Potassium Chloride BUN Creatinine Glucose POC Glucose 366 H 278 H 325 H Hemoglobin A1c Calcium Ferritin AST ALT Alkaline Phosphatase Lactate Dehydrogenase C-Reactive Protein Total Protein Albumin Urine Creatinine Coronavirus (PCR) 12/25/20 12/25/20 12/26/20 15:47 21:31 04:29 WBC RBC MCHC Plt Count Lymph % (Auto) [place]er % (Auto) Lymph # (Auto) Seg Neutrophils % Seg Neuts % (Manual) Lymphocytes % (Manual) Nucleated RBC % Seg Neutrophils # Seg Neutrophils # Man Lymphocytes # (Manual) D-Dimer Sodium Potassium Chloride BUN 22 H Creatinine Glucose 327 H POC Glucose 316 H 339 H Hemoglobin A1c Calcium 7.9 L Ferritin AST ALT Alkaline Phosphatase Lactate Dehydrogenase C-Reactive Protein Total Protein Albumin Urine Creatinine Coronavirus (PCR) 12/26/20 12/26/20 12/26/20 07:42 11:08 11:08 WBC RBC MCHC Plt Count Lymph % (Auto) [place] % (Auto) Lymph # (Auto) Seg Neutrophils % Seg Neuts % (Manual) Lymphocytes % (Manual) Nucleated RBC % Seg Neutrophils # Seg Neutrophils # Man Lymphocytes # (Manual) D-Dimer 1954.54 H Sodium Potassium Chloride BUN Creatinine Glucose POC Glucose 353 H Hemoglobin A1c Calcium Ferritin 932.1 H AST ALT Alkaline Phosphatase Lactate Dehydrogenase C-Reactive Protein Total Protein Albumin Urine Creatinine Coronavirus (PCR) 12/26/20 11:08 WBC RBC MCHC Plt Count Lymph % (Auto) [place] % (Auto) Lymph # (Auto) Seg Neutrophils % Seg Neuts % (Manual) Lymphocytes % (Manual) Nucleated RBC % Seg Neutrophils # Seg Neutrophils # Man Lymphocytes # (Manual) D-Dimer Sodium Potassium Chloride BUN Creatinine Glucose POC Glucose Hemoglobin A1c Calcium Ferritin AST ALT Alkaline Phosphatase Lactate Dehydrogenase 698 H C-Reactive Protein 3.70 H Total Protein Albumin Urine Creatinine Coronavirus (PCR)
--- NOTE | 2020-12-26 12:50 | Progress Note ---
Assessment and Plan Cultures: Blood culture no growth today SARS-CoV-2 PCR positive Assessment: 55-year-old female with history, diabetes mellitus, morbid obesity, admitted on 12/20/2020 secondary to a week history of cough, generalized malaise, fever, chills, progressive shortness of breath: #Acute sepsis: Likely secondary to severe COVID-19 pneumonia. #Severe COVID-19 pneumonia: Patient with underlying interstitial lung disease per CT report secondary hospital. Inflammatory markers elevated. D-dimer 260. Ferritin 1420. LDH 491. CRP 5.5. Chest x-ray with bilateral patchy infiltrates. Procalcitonin is slightly up in the setting of HOMA. #Acute hypoxemic respiratory failure: Worsening 100% FiO2 high flow nasal can nula and NR mask. #Elevated creatinine: Likely secondary to COVID-19. Improving. #Elevated LFTs: Likely secondary to COVID-19. Improving. #Neutropenia/thrombocytopenia: Likely secondary to COVID-19. Worsening both thrombocytopenia and neutropenia Recommendations: -Start tociluzimab 800 mg IV x 1 discussed with pharmacy -Completed Remdesivir -Completed ceftriaxone and azithromycin -Continue IV steroids per pulmonary -Monitor inflammatory markers - ferritin, Ddimer, CRP, LDH ordered stat today -Hematology consult worsening neutropenia and thrombocytopenia ? Covid induced autoimmune thrombocytopenia -Pulmonary on board -Continue anticoagulation per System Protocol -Prone positioning as possible Close monitoring patient risk for deterioration including intubation Will follow Asia Alvarez MD Infectious Diseases Rn Angiography [facility] [phone] O [phone] ] Subjective Date of service: 12/26/20 Principal diagnosis: COVID-19 Interval history: Remains anxious, now on BiPAP, no fever Objective - Exam Narrative Exam: General appearance: Alert, anxious, on BiPAP Eyes: anicteric sclerae, moist conjunctivae; no lid-lag; PERRLA HENT: Normocephalic, Atraumatic; normal external ears, nares open, oropharynx limited due to BiPAP Neck: supple, tracheal midline, no JVD Lungs: Bilateral scattered crackles CV: Tachycardic Abdomen: Soft, non-tender obese Extremities: no edema, no cyanosis Skin: No rash. Psych: Anxious Neuro: alert and oriented x 3. Moving all extermities - Constitutional Vitals: Vital Signs Temp Pulse Resp BP Pulse Ox 97.9 F 80 34 H 181/99 95 12/26/20 08:00 12/26/20 10:01 12/26/20 10:01 12/26/20 10:01 12/26/20 10:01 Temperature -Last 24 Hours Temperature 97.9 F Temperature 98.0 F Temperature 98.0 F Temperature 98.8 F Temperature 97.8 F Temperature 98.2 F Temperature 98.1 F - Labs CBC & Chem 7: 12/24/20 12:29 12/26/20 04:29 Labs: Abnormal lab results 12/25/20 12/25/20 12/25/20 Range/Units 11:38 15:47 21:31 BUN (7-17) mg/dL Glucose (65-100) mg/dL POC Glucose 325 H 316 H 339 H (70-105) mg/dL Calcium (8.4-10.2) mg/dL 12/26/20 12/26/20 Range/Units 04:29 07:42 BUN 22 H (7-17) mg/dL Glucose 327 H (65-100) mg/dL POC Glucose 353 H (70-105) mg/dL Calcium 7.9 L (8.4-10.2) mg/dL
[2020-12-26] MEDS: amLODIPine 10 MG TAB PO SCH (13:27)
[2020-12-26] MEDS: FUROSEMIDE 40 MG/4 ML INJ IV SCH (13:27)
[2020-12-26] MEDS: LORazepam 2 MG/ML VIAL IV PRN (19:41)
[2020-12-26] MEDS: ENOXAPARIN 40 MG/0.4 ML INJ SUB-Q SCH (21:59)
[2020-12-26] MEDS ORDERED: INSULIN GLARGINE 100 UNITS/ML SUB-Q SCH (22:00)
[2020-12-27] MEDS: methylPREDNISolone Sod Succinate 125 MG/2 ML INJ IV SCH ×3 (05:25→22:08)
[2020-12-27 05:37] LABS: Basophils % (Auto) 0.2 % (0.0-1.8); Hematocrit 38.8 % (30.3-42.9); Hemoglobin 13.1 gm/dl (10.1-14.3); Lymphocytes # (Auto) 0.5 K/mm3 (1.2-5.4); Lymphocytes % (Auto) 6.4 % (13.4-35.0); Mean Corpuscular HGB Conc 34 % (30-34); Mean Corpuscular Volume 96 fl (79-97); Monocytes # (Auto) 0.6 K/mm3 (0.0-0.8); Monocytes % (Auto) 7.5 % (0.0-7.3); Platelet Count 230 K/mm3 (140-440); Red Blood Count 4.05 M/mm3 (3.65-5.03); Red Cell Distribution Width 13.7 % (13.2-15.2)
[2020-12-27 05:55] LABS: Alanine Aminotransferase 28 units/L (7-56); Albumin 2.7 g/dL (3.9-5); BUN/Creatinine Ratio 30; Blood Urea Nitrogen 30 mg/dL (7-17); Calcium 8.1 mg/dL (8.4-10.2); Hemolysis Index 60
--- NOTE | 2020-12-27 08:39 | Progress Note ---
Assessment and Plan Assessment and plan: Severe COVID-19 pneumonia Acute hypoxic respiratory failure. Diabetes mellitus type 2. Morbid obesity. Elevated LFTs. DVT prophylaxis. 12/21/2020. Follow-up COVID-19 testing. Continue to trend inflammatory markers. Continue dexamethasone. ID and pulmonary consultation pending. Patient currently with 6 L/min O2 FiO2 44%. 12/22/2020. COVID-19 testing found to be positive. Continue to trend in flammatory markers. Continue dexamethasone. Patient requiring more oxygen with high flow nasal cannula 30 L/min and FiO2 100%. ID and pulmonary following. 12/23/2020. Patient with increasing oxygen requirements with high flow nasal cannula 40 L/min with FiO2 100%. Continue dexamethasone per ID recommendations. We will transfer to [facility] for closer monitoring. 12/24/2020. Patient was transferred to [facility] for closer monitoring yesterday. Patient currently requiring BiPAP with IPAP 16 and EPAP of 8 with FiO2 100%. Continue dexamethasone and remdesivir. Continue to trend inflammatory markers. Continue anticoagulation. Prone position as possible. Continue ceftriaxone and azithromycin per ID recommendations. 12/25/2020. Patient currently requiring BiPAP with IPAP 16 and EPAP of 8 with FiO2 100%. Continue IV steroids of Solu-Medrol 60 mg every 8 hour and remdesivir. Continue to trend inflammatory markers. Continue anticoagulation with Lovenox. Prone position as possible. Continue ceftriaxone and azithromycin per ID recommendations. Prognosis is guarded. 12/26/2020 BG not controlled with glipizide. Start Lantus at bedtime for BG control. Elevated BG likely secondary to IV steroid. Patient currently requiring BiPAP with IPAP 18 and EPAP of 10 with FiO2 100%. Continue IV steroids of Solu-Medrol 60 mg every 8 hour and remdesivir. Continue to trend inflammatory markers. Continue anticoagulation with Lovenox. Prone position as possible. Continue ceftriaxone and azithromycin per ID recommendations. Prognosis is guarded. 12/27/2020. Blood glucose is improved but not optimal. Therefore, increase Lantus to 14 units at bedtime. Elevated BG likely secondary to IV steroid. Patient currently requiring BiPAP with IPAP 18 and EPAP of 10 with FiO2 100%. Continue IV steroids of Solu-Medrol 60 mg every 8 hour and remdesivir. Continue to trend inflammatory markers. Continue anticoagulation with Lovenox. Prone position as possible. Continue ceftriaxone and azithromycin per ID recommendations. Prognosis is guarded. History Interval history: Patient remains hypoxic in the IMCU. Patient is somewhat lethargic Hospitalist Physical - Constitutional Vitals: Temp Pulse Resp BP Pulse Ox 97.8 F 71 23 147/76 98 12/27/20 04:00 12/27/20 07:00 12/27/20 07:00 12/27/20 07:00 12/27/20 07:00 General appearance: Present: mild distress, well-nourished, obese - EENT Eyes: Present: PERRL, EOM intact ENT: hearing intact, clear oral mucosa, dentition normal - Neck Neck: Present: supple, normal ROM - Respiratory Respiratory effort: normal Respiratory: bilateral: CTA - Cardiovascular Rhythm: regular Heart Sounds: Present: S1 & S2. Absent: gallop, rub - Extremities Extremities: no ischemia, No edema, Full ROM - Abdominal General gastrointestinal: soft, non-tender, non-distended, normal bowel sounds - Integumentary Integumentary: Present: clear, warm, dry - Neurologic Neurologic: CNII-XII intact, moves all extremities HEART Score - HEART Score Troponin: Troponin T < 0.010 ng/mL (0.00-0.029) 12/20/20 19:27 Results - Labs CBC & Chem 7: 12/27/20 04:25 12/27/20 04:25 Labs: Laboratory Last Values WBC 7.5 K/mm3 (4.5-11.0) 12/27/20 04:25 RBC 4.05 M/mm3 (3.65-5.03) 12/27/20 04:25 Hgb 13.1 gm/dl (10.1-14.3) 12/27/20 04:25 Hct 38.8 % (30.3-42.9) D 12/27/20 04:25 MCV 96 fl (79-97) 12/27/20 04:25 MCH 32 pg (28-32) 12/27/20 04:25 MCHC 34 % (30-34) 12/27/20 04:25 RDW 13.7 % (13.2-15.2) 12/27/20 04:25 Plt Count 230 K/mm3 (140-440) 12/27/20 04:25 Lymph % (Auto) 6.4 % (13.4-35.0) L 12/27/20 04:25 [place] % (Auto) 7.5 % (0.0-7.3) H 12/27/20 04:25 Eos % (Auto) 0.0 % (0.0-4.3) 12/27/20 04:25 Baso % (Auto) 0.2 % (0.0-1.8) 12/27/20 04:25 Lymph # (Auto) 0.5 K/mm3 (1.2-5.4) L 12/27/20 04:25 [place] # (Auto) 0.6 K/mm3 (0.0-0.8) 12/27/20 04:25 Eos # (Auto) 0.0 K/mm3 (0.0-0.4) 12/27/20 04:25 Baso # (Auto) 0.0 K/mm3 (0.0-0.1) 12/27/20 04:25 Add Manual Diff Complete 12/23/20 14:09 Total Counted 100 12/23/20 14:09 Seg Neutrophils % 85.9 % (40.0-70.0) H 12/27/20 04:25 Seg Neuts % (Manual) 87.0 % (40.0-70.0) H 12/23/20 14:09 Band Neutrophils % 4.0 % 12/23/20 14:09 Lymphocytes % (Manual) 3.0 % (13.4-35.0) L 12/23/20 14:09 Reactive Lymphs % (Man) 1.0 % 12/23/20 14:09 Monocytes % (Manual) 5.0 % (0.0-7.3) 12/23/20 14:09 Nucleated RBC % 1.0 % (0.0-0.9) H 12/23/20 14:09 Seg Neutrophils # 6.4 K/mm3 (1.8-7.7) 12/27/20 04:25 Seg Neutrophils # Man 1.6 K/mm3 (1.8-7.7) L 12/23/20 14:09 Band Neutrophils # 0.1 K/mm3 12/23/20 14:09 Lymphocytes # (Manual) 0.1 K/mm3 (1.2-5.4) L 12/23/20 14:09 Abs React Lymphs (Man) 0.0 K/mm3 12/23/20 14:09 Monocytes # (Manual) 0.1 K/mm3 (0.0-0.8) 12/23/20 14:09 Eosinophils # (Manual) 0.0 K/mm3 (0.0-0.4) 12/23/20 14:09 Basophils # (Manual) 0.0 K/mm3 (0.0-0.1) 12/23/20 14:09 Metamyelocytes # 0.0 K/mm3 12/23/20 14:09 Myelocytes # 0.0 K/mm3 12/23/20 14:09 Promyelocytes # 0.0 K/mm3 12/23/20 14:09 Blast Cells # 0.0 K/mm3 12/23/20 14:09 WBC Morphology Not Reportable 12/23/20 14:09 Hypersegmented Neuts Not Reportable 12/23/20 14:09 Hyposegmented Neuts Not Reportable 12/23/20 14:09 Hypogranular Neuts Not Reportable 12/23/20 14:09 Smudge Cells Not Reportable 12/23/20 14:09 Toxic Granulation Not Reportable 12/23/20 14:09 Toxic Vacuolation Not Reportable 12/23/20 14:09 Dohle Bodies Not Reportable 12/23/20 14:09 Pelger-Huet Anomaly Not Reportable 12/23/20 14:09 Jair Rods Not Reportable 12/23/20 14:09 Platelet Estimate Consistent w auto 12/23/20 14:09 Clumped Platelets Not Reportable 12/23/20 14:09 Plt Clumps, EDTA Not Reportable 12/23/20 14:09 Large Platelets Not Reportable 12/23/20 14:09 Giant Platelets Not Reportable 12/23/20 14:09 Platelet Satelliting Not Reportable 12/23/20 14:09 Plt Morphology Comment Not Reportable 12/23/20 14:09 RBC Morphology Normal 12/23/20 14:09 Dimorphic RBCs Not Reportable 12/23/20 14:09 Polychromasia Not Reportable 12/23/20 14:09 Hypochromasia Not Reportable 12/23/20 14:09 Poikilocytosis Not Reportable 12/23/20 14:09 Anisocytosis Not Reportable 12/23/20 14:09 Microcytosis Not Reportable 12/23/20 14:09 Macrocytosis Not Reportable 12/23/20 14:09 Spherocytes Not Reportable 12/23/20 14:09 Pappenheimer Bodies Not Reportable 12/23/20 14:09 Sickle Cells Not Reportable 12/23/20 14:09 Target Cells Not Reportable 12/23/20 14:09 Tear Drop Cells Not Reportable 12/23/20 14:09 Ovalocytes Not Reportable 12/23/20 14:09 Helmet Cells Not Reportable 12/23/20 14:09 [place] Bodies Not Reportable 12/23/20 14:09 [place]man Rings Not Reportable 12/23/20 14:09 [place] Cells Not Reportable 12/23/20 14:09 Bite Cells Not Reportable 12/23/20 14:09 Crenated Cell Not Reportable 12/23/20 14:09 Elliptocytes Not Reportable 12/23/20 14:09 Acanthocytes (Spur) Not Reportable 12/23/20 14:09 Rouleaux Not Reportable 12/23/20 14:09 Hemoglobin C Crystals Not Reportable 12/23/20 14:09 Schistocytes Not Reportable 12/23/20 14:09 Malaria parasites Not Reportable 12/23/20 14:09 Giorgi Bodies Not Reportable 12/23/20 14:09 Hem Pathologist Commnt No 12/23/20 14:09 PT 13.1 Sec. (12.2-14.9) 12/21/20 05:50 INR 1.01 (0.87-1.13) 12/21/20 05:50 D-Dimer 1954.54 ng/mlDDU (0-234) H 12/26/20 11:08 Sodium 142 mmol/L (137-145) 12/27/20 04:25 Potassium 5.4 mmol/L (3.6-5.0) H D 12/27/20 04:25 Chloride 102.3 mmol/L (98-107) 12/27/20 04:25 Carbon Dioxide 29 mmol/L (22-30) 12/27/20 04:25 Anion Gap 16 mmol/L 12/27/20 04:25 BUN 30 mg/dL (7-17) H 12/27/20 04:25 Creatinine 1.0 mg/dL (0.6-1.2) 12/27/20 04:25 Estimated GFR > 60 ml/min 12/27/20 04:25 BUN/Creatinine Ratio 30 % 12/27/20 04:25 Glucose 273 mg/dL (65-100) H 12/27/20 04:25 POC Glucose 376 mg/dL (70-105) H 12/26/20 21:29 Hemoglobin A1c 10.3 % (4-6) H 12/21/20 05:50 Lactic Acid 1.40 mmol/L (0.7-2.0) 12/21/20 05:50 Calcium 8.1 mg/dL (8.4-10.2) L 12/27/20 04:25 Magnesium 1.90 mg/dL (1.7-2.3) 12/26/20 04:29 Ferritin 932.1 ng/mL (10.0-200.0) H 12/26/20 11:08 Total Bilirubin 0.30 mg/dL (0.1-1.2) 12/27/20 04:25 AST 31 units/L (5-40) 12/27/20 04:25 ALT 28 units/L (7-56) 12/27/20 04:25 Alkaline Phosphatase 242 units/L (35-129) H 12/27/20 04:25 Lactate Dehydrogenase 698 units/L (91-180) H 12/26/20 11:08 Troponin T < 0.010 ng/mL (0.00-0.029) 12/20/20 19:27 C-Reactive Protein 3.70 mg/dL (0.00-1.30) H 12/26/20 11:08 Total Protein 7.3 g/dL (6.3-8.2) 12/27/20 04:25 Albumin 2.7 g/dL (3.9-5) L 12/27/20 04:25 Albumin/Globulin Ratio 0.6 % 12/27/20 04:25 Procalcitonin 0.07 ng/mL (<0.15) 12/26/20 11:08 Urine Color Yellow (Yellow) 12/22/20 03:00 Urine Turbidity Clear (Clear) 12/22/20 03:00 Urine pH 5.0 (5.0-7.0) 12/22/20 03:00 Ur Specific [place] 1.019 (1.003-1.030) 12/22/20 03:00 Urine Protein 100 mg/dl mg/dL (Negative) 12/22/20 03:00 Urine Glucose (UA) 50 mg/dL (Negative) 12/22/20 03:00 Urine Ketones Neg mg/dL (Negative) 12/22/20 03:00 Urine Blood Sm (Negative) 12/22/20 03:00 Urine Nitrite Neg (Negative) 12/22/20 03:00 Urine Bilirubin Neg (Negative) 12/22/20 03:00 Urine Urobilinogen 2.0 mg/dL (<2.0) 12/22/20 03:00 Ur Leukocyte Esterase Neg (Negative) 12/22/20 03:00 Urine WBC (Auto) 1.0 /HPF (0.0-6.0) 12/22/20 03:00 Urine RBC (Auto) 1.0 /HPF (0.0-6.0) 12/22/20 03:00 U Epithel Cells (Auto) 3.0 /HPF (0-13.0) 12/22/20 03:00 Urine Bacteria (Auto) 1+ /HPF (Negative) 12/22/20 03:00 Urine Mucus Few /HPF 12/22/20 03:00 Urine Eosinophils None seen (None Seen) 12/22/20 03:00 Urine Creatinine 117.9 mg/dL (0.1-20.0) H 12/22/20 03:00 Urine Sodium 67 mmol/L 12/22/20 03:00 Coronavirus (PCR) Positive (Negative) A 12/21/20 10:28 Hepatitis A IgM Ab Non-reactive (NonReactive) 12/22/20 06:00 Hep Bs Antigen Non-reactive (Negative) 12/22/20 06:00 Hep B Core IgM Ab Non-reactive (NonReactive) 12/22/20 06:00 Hepatitis C Antibody Non-reactive (NonReactive) 12/22/20 06:00 Curtis/IV: Voiding Method Indwelling Catheter Active Medications - Current Medications Current Medications: Generic Name Dose Route Start Last Admin Trade Name Freq PRN Reason Stop Dose Admin Acetaminophen 650 mg 12/20/20 23:15 12/24/20 09:40 Acetaminophen 325 Mg Tab PO 650 mg Q4H PRN Administration Pain MILD(1-3)/Fever >100.5/VARGAS Albuterol 2.5 mg 12/21/20 12:00 Albuterol 2.5 Mg/3 Ml Nebu IH Q4HRT PRN Shortness Of Breath Amlodipine Besylate 10 mg 12/26/20 14:00 12/26/20 13:27 Amlodipine 10 Mg Tab PO 10 mg QDAY ATMEKA Administration Dextrose 50 ml 12/20/20 23:15 Dextrose 50% In Water (25gm) 50 Ml Syringe IV Q30MIN PRN Hypoglycemia Protocol Enoxaparin Sodium 40 mg 12/21/20 22:00 12/26/20 21:59 Enoxaparin 40 Mg/0.4 Ml Inj SUB-Q 40 mg QDAY@2200 TAMEKA Administration Protocol Furosemide 40 mg 12/26/20 14:00 12/26/20 13:27 Furosemide 40 Mg/4 Ml Inj IV 40 mg QDAY TAMEKA Administration Gabapentin 800 mg 12/21/20 22:00 12/26/20 21:59 Gabapentin 400 Mg Cap PO 800 mg BID TAMEKA Administration Glipizide 10 mg 12/21/20 10:00 12/26/20 17:39 Glipizide 10 Mg Tab PO 10 mg BIDDIAB TAMEKA Administration Guaifenesin 200 mg 12/21/20 16:00 12/22/20 20:41 Guaifenesin 100 Mg/5 Ml Oral Liqd PO 200 mg Q4H PRN Administration Cough Insulin Glargine 8 units 12/26/20 22:00 12/26/20 22:00 Insulin Glargine 100 Units/Ml SUB-Q 8 units QHS TAMEKA Administration Insulin Human Lispro 0 unit 12/21/20 07:30 12/26/20 21:59 Insulin Lispro 100 Unit/Ml SUB-Q 8 unit ACHS TAMEKA Administration Protocol Lorazepam 0.5 mg 12/23/20 20:12 12/26/20 19:41 Lorazepam 2 Mg/Ml Vial IV 0.5 mg Q6H PRN Administration Anxiety Magnesium Hydroxide 30 ml 12/20/20 23:15 Magnesium Hydroxide (Mom) Oral Liqd Udc PO Q4H PRN Constipation Methylprednisolone Sodium Succinate 60 mg 12/23/20 22:00 12/27/20 05:25 Methylprednisolone Sod Succinate 125 Mg/2 Ml Inj IV 60 mg Q8HR TAMEKA Administration Morphine Sulfate 2 mg 12/20/20 23:15 12/25/20 22:10 Morphine 2 Mg/1 Ml Inj IV 2 mg Q4H PRN Administration Pain, Moderate (4-6) Ondansetron HCl 4 mg 12/20/20 23:15 Ondansetron 4 Mg/2 Ml Inj IV Q8H PRN Nausea And Vomiting Oxycodone/Acetaminophen 1 tab 12/21/20 16:00 12/22/20 20:41 Oxycodone /Acetaminophen 5-325mg Tab PO 1 tab Q6H PRN Administration Pain, Moderate (4-6) Sodium Chloride 10 ml 12/21/20 10:00 12/26/20 22:00 Sodium Chloride 0.9% 10 Ml Flush Syringe IV 10 ml BID TAMEKA Administration Sodium Chloride 10 ml 12/20/20 23:15 12/21/20 18:48 Sodium Chloride 0.9% 10 Ml Flush Syringe IV 10 ml PRN PRN Administration LINE FLUSH Sodium Chloride 1 applic 12/22/20 12:00 12/26/20 22:00 [place] Saline Nasal Gel 14.1 Gm NS Not Given BID TAMEKA Nutrition/Malnutrition Assess - Dietary Evaluation Nutrition/Malnutrition Findings: Nutrition Notes Start: 12/21/20 09:35 Freq: Status: Active Protocol: Document 12/23/20 08:33 AT (Rec: 12/23/20 08:41 AT [email or web address]) Co-Sign 12/23/20 08:33 MK Nutrition Notes Initial or Follow up Reassessment Current Diagnosis Diabetes,Hypertension, Respiratory Failure Other Pertinent Diagnosis pneu, COVID-19(+), SOB, Diabetic Neuropathy Current Diet NPO Labs/Tests POC BG 493 4/ BUN 34 Cr 1.3 Ca 7.5 Pertinent Medications NS at 75 mL/hr Height 5 ft 7 in Weight 142.882 kg [place] Body Weight (kg) 61.36 BMI 49.3 Weight Status Morbidly Obese Subjective/Other Information Follow up for intakes, ONS tolerance, and diet education needs. Pt is NPO at this time and consumed between 25-50% of meals yesterday. Could not reach pt by phone x2. Will continue to follow. Percent of energy/protein needs met: 0%/0% Burn Absent Trauma Absent Current % PO Negligible Minimum of two criteria No physical signs of malnutrition #1 Nutrition Diagnosis Inadequate oral intake Diagnosis Progress(for reassessment Continues documentation) Is patient on ventilator? No Is Patient Ambulatory and/or Out of Bed Yes REE-([place]-St. Jeor-ambulatory/OOB) [ 2673.372 [id number]] Kcal/Kg value to use for calculation 14 Approximate Energy Requirements Using 2000 kcal/Kg Calculation Used for Recommendations Kcal/kg Additional Notes PRO needs: 82-102g (0.8-1g/kg AdBW 102 kg) Fluid needs: 1 mL/kcal or per MD Nutrition Intervention Change Diet Order: Continue current Add Supplement/Snack (indicate name/kcal Ensure High Protein BID /protein ) Provides kCal: 320 Provides Protein (gm) 32 Goal #1 Meet at least 75% of energy and protein needs via diet and ONS Anticipated Discharge Needs: Cardiac/Consistent CHO Follow-Up By: 12/27/20 Additional Comments F/U for stable intakes, ONS tolerance
[2020-12-27] MEDS: GABAPENTIN 400 MG CAP PO SCH ×2 (09:21→22:07)
[2020-12-27] MEDS: amLODIPine 10 MG TAB PO SCH (09:22)
[2020-12-27] MEDS: glipiZIDE 10 MG TAB PO SCH ×2 (09:22→17:49)
[2020-12-27] MEDS: FUROSEMIDE 40 MG/4 ML INJ IV SCH (09:22)
[2020-12-27] MEDS: AYR SALINE NASAL GEL 14.1 GM NS SCH ×2 (09:22→22:06)
[2020-12-27] MEDS: INSULIN LISPRO 100 UNIT/ML SUB-Q SCH ×4 (09:23→22:20)
--- NOTE | 2020-12-27 10:01 | Progress Note ---
Assessment and Plan 1. Acute kidney injury: HOMA in the setting of vasomotor insult vs Covid infection. Renal US negative. Monitor renal function. Creatinine level is better. Avoid nephrotoxic agents. Meds dosage based on GFR. 2. FEN: Hyperkalemia, meds ordered, monitor. Monitor volume status and lytes. 3. Covid infection: Isolation, follow inflammatory markers. Followed by ID. 4. Acute on chronic hypoxemic respiratory failure, POA: 2/2 COVID infection. CXR showed mild patchy parenchymal opacities bilaterally. On HFNC O2. 5. DM type 2: SSI. Monitor bl sugar. 6. HTN: Monitor BP. Adjust meds as needed. 7. Leukopenia: Monitor. 8. Elevated Transaminases: Trend. Subjective: Patient was seen and examined at the bedside. Patient is in IMCU. Objective: General appearance: well-developed, appears stated age, morbidly obese, on HFNC O2 HEENT: ATNC Neck: trachea midline Respiratory: coarse breath sounds Heart: regular, S1S2, no murmur Gastrointestinal: soft, normoactive bowel sounds, not tender Integumentary: no obvious rash Ext: no edema Neurologic: able to move extremities : Curtis catheter Subjective Date of service: 12/27/20 Principal diagnosis: COVID-19 Objective - Vital Signs Vital signs: Vital Signs - 12hr 12/26/20 12/26/20 12/27/20 22:01 23:01 00:00 Temperature 98.8 F Pulse Rate 79 67 70 Respiratory 28 H 19 34 H Rate Blood Pressure 154/105 133/67 137/74 O2 Sat by Pulse 94 98 97 Oximetry 12/27/20 12/27/20 12/27/20 01:00 02:00 03:00 Temperature Pulse Rate 65 64 75 Respiratory 19 20 29 H Rate Blood Pressure 123/71 132/75 147/83 O2 Sat by Pulse 97 97 96 Oximetry 12/27/20 12/27/20 12/27/20 03:23 04:00 05:00 Temperature 97.8 F Pulse Rate 78 77 71 Respiratory 34 H 25 H 27 H Rate Blood Pressure 147/83 158/86 142/77 O2 Sat by Pulse 96 96 96 Oximetry 12/27/20 12/27/20 12/27/20 06:00 07:00 08:00 Temperature 97.4 F L Pulse Rate 74 71 Respiratory 33 H 23 Rate Blood Pressure 172/71 147/76 O2 Sat by Pulse 98 98 Oximetry 12/27/20 09:22 Temperature Pulse Rate 84 Respiratory Rate Blood Pressure 144/79 O2 Sat by Pulse Oximetry - Lab 12/27/20 04:25 12/27/20 04:25 Most recent lab results Calcium 8.1 mg/dL (8.4-10.2) L 12/27/20 04:25 Magnesium 1.90 mg/dL (1.7-2.3) 12/26/20 04:29 Urine Creatinine 117.9 mg/dL (0.1-20.0) H 12/22/20 03:00 Urine Sodium 67 mmol/L 12/22/20 03:00 Medications & Allergies - Medications Allergies/Adverse Reactions: Allergies No Known Allergies Allergy (Verified 12/29/14 22:38) Home Medications: Home Medications Medication Instructions Recorded Confirmed Last Taken Type Cyclobenzaprine [Flexeril 10 MG 10 mg PO QHS PRN 12/21/20 12/21/20 Unknown History TAB] Gabapentin [Neurontin] 800 mg PO TID 12/21/20 12/21/20 12/20/20 History metFORMIN [Glucophage] 1,000 mg PO BID 12/21/20 12/21/20 12/20/20 History traMADoL [Ultram 50 MG tab] 50 mg PO BID PRN MDD 100 12/21/20 12/21/20 Unknown History Levothyroxine 137 mcg PO QDAY 12/26/20 12/26/20 12/20/20 08:00 History Active Medications: Generic Name Dose Route Start Last Admin Trade Name [place] PRN Reason Stop Dose Admin Acetaminophen 650 mg 12/20/20 23:15 12/24/20 09:40 Acetaminophen 325 Mg Tab PO 650 mg Q4H PRN Administration Pain MILD(1-3)/Fever >100.5/VARGAS Albuterol 2.5 mg 12/21/20 12:00 Albuterol 2.5 Mg/3 Ml Nebu IH Q4HRT PRN Shortness Of Breath Amlodipine Besylate 10 mg 12/26/20 14:00 12/27/20 09:22 Amlodipine 10 Mg Tab PO 10 mg QDAY TAMEKA Administration Dextrose 50 ml 12/20/20 23:15 Dextrose 50% In Water (25gm) 50 Ml Syringe IV Q30MIN PRN Hypoglycemia Protocol Enoxaparin Sodium 40 mg 12/21/20 22:00 12/26/20 21:59 Enoxaparin 40 Mg/0.4 Ml Inj SUB-Q 40 mg QDAY@2200 TAMEKA Administration Protocol Furosemide 40 mg 12/26/20 14:00 12/27/20 09:22 Furosemide 40 Mg/4 Ml Inj IV 40 mg QDAY TAMEKA Administration Gabapentin 800 mg 12/21/20 22:00 12/27/20 09:21 Gabapentin 400 Mg Cap PO 800 mg BID TAMEKA Administration Glipizide 10 mg 12/21/20 10:00 12/27/20 09:22 Glipizide 10 Mg Tab PO 10 mg BIDDIAB TAMEKA Administration Guaifenesin 200 mg 12/21/20 16:00 12/22/20 20:41 Guaifenesin 100 Mg/5 Ml Oral Liqd PO 200 mg Q4H PRN Administration Cough Insulin Glargine 14 units 12/27/20 22:00 Insulin Glargine 100 Units/Ml SUB-Q QHS TAMEKA Insulin Human Lispro 0 unit 12/21/20 07:30 12/27/20 09:23 Insulin Lispro 100 Unit/Ml SUB-Q 4 unit ACHS TAMEKA Administration Protocol Lorazepam 0.5 mg 12/23/20 20:12 12/26/20 19:41 Lorazepam 2 Mg/Ml Vial IV 0.5 mg Q6H PRN Administration Anxiety Magnesium Hydroxide 30 ml 12/20/20 23:15 Magnesium Hydroxide (Mom) Oral Liqd Udc PO Q4H PRN Constipation Methylprednisolone Sodium Succinate 60 mg 12/23/20 22:00 12/27/20 05:25 Methylprednisolone Sod Succinate 125 Mg/2 Ml Inj IV 60 mg Q8HR TAMEKA Administration Morphine Sulfate 2 mg 12/20/20 23:15 12/25/20 22:10 Morphine 2 Mg/1 Ml Inj IV 2 mg Q4H PRN Administration Pain, Moderate (4-6) Ondansetron HCl 4 mg 12/20/20 23:15 Ondansetron 4 Mg/2 Ml Inj IV Q8H PRN Nausea And Vomiting Oxycodone/Acetaminophen 1 tab 12/21/20 16:00 12/22/20 20:41 Oxycodone /Acetaminophen 5-325mg Tab PO 1 tab Q6H PRN Administration Pain, Moderate (4-6) Sodium Chloride 10 ml 12/21/20 10:00 12/27/20 09:22 Sodium Chloride 0.9% 10 Ml Flush Syringe IV 10 ml BID TAMEKA Administration Sodium Chloride 10 ml 12/20/20 23:15 12/21/20 18:48 Sodium Chloride 0.9% 10 Ml Flush Syringe IV 10 ml PRN PRN Administration LINE FLUSH Sodium Chloride 1 applic 12/22/20 12:00 12/27/20 09:22 [place] Saline Nasal Gel 14.1 Gm NS 1 applic BID TAMEKA Administration
[2020-12-27] MEDS ORDERED: SODIUM POLYSTYRENE 15 GM/60 ML ORAL LIQD PO ONE (10:30)
[2020-12-27] MEDS ORDERED: INSULIN REGULAR, HUMAN 100 UNITS/1 ML IV ONE (10:30)
[2020-12-27] MEDS ORDERED: SODIUM POLYSTYRENE 15 GM/60 ML ORAL LIQD PO SCH (11:30)
--- NOTE | 2020-12-27 11:43 | Progress Note ---
Assessment and Plan 55 y/o female with acute respiratory failure secondary to cOVID 19 with prior history of ILD on a CT in [facility] 1. Agree with change in steroids to solumedrol 60q8, will continue for now 2. Agree with daily lasix but goal should be daily net negative state. 3. Prone as tolerated during the day and sleep prone at night 4. Guarded prognosis Subjective Date of service: 12/27/20 Principal diagnosis: COVID-19 Interval history: Remains on HFNC at 35 and 100, sats in the low 90's. Already on lasix daily. Objective Vital Signs - 12hr 12/27/20 12/27/20 12/27/20 00:00 01:00 02:00 Temperature 98.8 F Pulse Rate 70 65 64 Pulse Rate [ From Monitor] Respiratory 34 H 19 20 Rate Blood Pressure 137/74 123/71 132/75 O2 Sat by Pulse 97 97 97 Oximetry 12/27/20 12/27/20 12/27/20 03:00 03:23 04:00 Temperature 97.8 F Pulse Rate 75 78 77 Pulse Rate [ From Monitor] Respiratory 29 H 34 H 25 H Rate Blood Pressure 147/83 147/83 158/86 O2 Sat by Pulse 96 96 96 Oximetry 12/27/20 12/27/20 12/27/20 05:00 06:00 07:00 Temperature Pulse Rate 71 74 71 Pulse Rate [ From Monitor] Respiratory 27 H 33 H 23 Rate Blood Pressure 142/77 172/71 147/76 O2 Sat by Pulse 96 98 98 Oximetry 12/27/20 12/27/20 12/27/20 08:00 09:00 09:22 Temperature 97.4 F L Pulse Rate 65 79 84 Pulse Rate [ 82 From Monitor] Respiratory 22 32 H Rate Blood Pressure 144/73 144/79 144/79 O2 Sat by Pulse 99 98 Oximetry 12/27/20 12/27/20 10:00 10:42 Temperature Pulse Rate 87 Pulse Rate [ From Monitor] Respiratory 34 H Rate Blood Pressure 148/75 O2 Sat by Pulse 96 93 Oximetry Constitutional: no acute distress, alert (obese), other (on BIPAP) Eyes: non-icteric ENT: oropharynx moist Neck: supple Effort: normal Ascultation: Bilateral: clear, diminished breath sounds (anteriorly) Cardiovascular: regular rate and rhythm (no mrg) Gastrointestinal: normoactive bowel sounds, soft, non-tender, non-distended Integumentary: normal Extremities: no cyanosis, no edema, pink and warm Neurologic: normal mental status, non-focal exam Psychiatric: mood appropriate, affect normal CBC and BMP: 12/27/20 04:25 12/27/20 04:25 ABG, PT/INR, D-dimer: PT/INR, D-dimer PT 13.1 Sec. (12.2-14.9) 12/21/20 05:50 INR 1.01 (0.87-1.13) 12/21/20 05:50 D-Dimer 1954.54 ng/mlDDU (0-234) H 12/26/20 11:08 Abnormal lab findings: Abnormal Labs 12/20/20 12/20/20 12/20/20 19:27 19:27 19:27 WBC 2.9 L RBC MCHC Plt Count 116 L Lymph % (Auto) 41.2 H [place] % (Auto) 13.2 H Lymph # (Auto) Seg Neutrophils % Seg Neuts % (Manual) Lymphocytes % (Manual) Nucleated RBC % Seg Neutrophils # 1.3 L Seg Neutrophils # Man Lymphocytes # (Manual) D-Dimer 260.58 H Sodium 135 L Potassium Chloride 96.1 L BUN 23 H Creatinine 1.4 H Glucose 295 H POC Glucose Hemoglobin A1c Calcium 8.3 L Ferritin AST 125 H ALT 96 H Alkaline Phosphatase 323 H Lactate Dehydrogenase C-Reactive Protein Total Protein 8.7 H Albumin 3.7 L Urine Creatinine Coronavirus (PCR) 12/20/20 12/20/20 12/21/20 19:43 19:43 05:50 WBC RBC MCHC Plt Count Lymph % (Auto) [place] % (Auto) Lymph # (Auto) Seg Neutrophils % Seg Neuts % (Manual) Lymphocytes % (Manual) Nucleated RBC % Seg Neutrophils # Seg Neutrophils # Man Lymphocytes # (Manual) D-Dimer Sodium Potassium Chloride BUN Creatinine Glucose 297 H POC Glucose Hemoglobin A1c 10.3 H Calcium Ferritin 1420.0 H AST ALT Alkaline Phosphatase Lactate Dehydrogenase 491 H C-Reactive Protein 5.50 H Total Protein Albumin Urine Creatinine Coronavirus (PCR) 12/21/20 12/21/20 12/21/20 05:50 05:50 08:04 WBC 1.6 L* RBC 3.40 L MCHC Plt Count 104 L Lymph % (Auto) [place] % (Auto) Lymph # (Auto) Seg Neutrophils % Seg Neuts % (Manual) 82.0 H Lymphocytes % (Manual) Nucleated RBC % Seg Neutrophils # Seg Neutrophils # Man 1.3 L Lymphocytes # (Manual) 0.3 L D-Dimer Sodium 132 L Potassium 5.7 H D Chloride 95.7 L BUN 33 H Creatinine 1.7 H Glucose 500 H POC Glucose 483 H Hemoglobin A1c Calcium 7.7 L Ferritin AST ALT Alkaline Phosphatase Lactate Dehydrogenase C-Reactive Protein Total Protein Albumin Urine Creatinine Coronavirus (PCR) 12/21/20 12/21/20 12/21/20 10:28 12:05 16:54 WBC RBC MCHC Plt Count Lymph % (Auto) [place] % (Auto) Lymph # (Auto) Seg Neutrophils % Seg Neuts % (Manual) Lymphocytes % (Manual) Nucleated RBC % Seg Neutrophils # Seg Neutrophils # Man Lymphocytes # (Manual) D-Dimer Sodium Potassium Chloride BUN Creatinine Glucose POC Glucose 482 H 374 H Hemoglobin A1c Calcium Ferritin AST ALT Alkaline Phosphatase Lactate Dehydrogenase C-Reactive Protein Total Protein Albumin Urine Creatinine Coronavirus (PCR) Positive A 12/21/20 12/21/20 12/22/20 18:24 22:12 03:00 WBC RBC MCHC Plt Count Lymph % (Auto) [place] % (Auto) Lymph # (Auto) Seg Neutrophils % Seg Neuts % (Manual) Lymphocytes % (Manual) Nucleated RBC % Seg Neutrophils # Seg Neutrophils # Man Lymphocytes # (Manual) D-Dimer Sodium 131 L Potassium Chloride 95.2 L BUN 37 H Creatinine 1.4 H Glucose 417 H POC Glucose 358 H Hemoglobin A1c Calcium 7.5 L Ferritin AST 82 H ALT 69 H Alkaline Phosphatase 262 H Lactate Dehydrogenase C-Reactive Protein Total Protein Albumin 3.0 L Urine Creatinine 117.9 H Coronavirus (PCR) 12/22/20 12/22/20 12/22/20 05:29 08:19 11:18 WBC RBC MCHC Plt Count Lymph % (Auto) [place] % (Auto) Lymph # (Auto) Seg Neutrophils % Seg Neuts % (Manual) Lymphocytes % (Manual) Nucleated RBC % Seg Neutrophils # Seg Neutrophils # Man Lymphocytes # (Manual) D-Dimer Sodium Potassium Chloride BUN 34 H Creatinine 1.3 H Glucose 169 H POC Glucose 136 H 132 H Hemoglobin A1c Calcium 7.5 L Ferritin AST 74 H ALT 60 H Alkaline Phosphatase 249 H Lactate Dehydrogenase C-Reactive Protein Total Protein Albumin 3.1 L Urine Creatinine Coronavirus (PCR) 12/22/20 12/22/20 12/22/20 14:18 14:18 16:36 WBC RBC MCHC Plt Count Lymph % (Auto) [place] % (Auto) Lymph # (Auto) Seg Neutrophils % Seg Neuts % (Manual) Lymphocytes % (Manual) Nucleated RBC % Seg Neutrophils # Seg Neutrophils # Man Lymphocytes # (Manual) D-Dimer Sodium Potassium Chloride BUN Creatinine Glucose POC Glucose 440 H Hemoglobin A1c Calcium Ferritin 1295.0 H AST ALT Alkaline Phosphatase Lactate Dehydrogenase 620 H C-Reactive Protein 2.70 H Total Protein Albumin Urine Creatinine Coronavirus (PCR) 12/22/20 12/23/20 12/23/20 21:07 08:09 11:30 WBC RBC MCHC Plt Count Lymph % (Auto) [place] % (Auto) Lymph # (Auto) Seg Neutrophils % Seg Neuts % (Manual) Lymphocytes % (Manual) Nucleated RBC % Seg Neutrophils # Seg Neutrophils # Man Lymphocytes # (Manual) D-Dimer Sodium Potassium Chloride BUN Creatinine Glucose POC Glucose 493 H 156 H 185 H Hemoglobin A1c Calcium Ferritin AST ALT Alkaline Phosphatase Lactate Dehydrogenase C-Reactive Protein Total Protein Albumin Urine Creatinine Coronavirus (PCR) 12/23/20 12/23/20 12/23/20 14:09 14:09 16:26 WBC 1.8 L* RBC 3.45 L MCHC Plt Count 114 L Lymph % (Auto) [place] % (Auto) Lymph # (Auto) Seg Neutrophils % Seg Neuts % (Manual) 87.0 H Lymphocytes % (Manual) 3.0 L Nucleated RBC % 1.0 H Seg Neutrophils # Seg Neutrophils # Man 1.6 L Lymphocytes # (Manual) 0.1 L D-Dimer Sodium Potassium Chloride BUN 19 H Creatinine Glucose 292 H POC Glucose 351 H Hemoglobin A1c Calcium 7.4 L Ferritin AST 71 H ALT Alkaline Phosphatase 264 H Lactate Dehydrogenase C-Reactive Protein Total Protein Albumin 3.0 L Urine Creatinine Coronavirus (PCR) 12/23/20 12/24/20 12/24/20 21:11 08:21 11:58 WBC RBC MCHC Plt Count Lymph % (Auto) [place] % (Auto) Lymph # (Auto) Seg Neutrophils % Seg Neuts % (Manual) Lymphocytes % (Manual) Nucleated RBC % Seg Neutrophils # Seg Neutrophils # Man Lymphocytes # (Manual) D-Dimer Sodium Potassium Chloride BUN Creatinine Glucose POC Glucose 288 H 286 H 277 H Hemoglobin A1c Calcium Ferritin AST ALT Alkaline Phosphatase Lactate Dehydrogenase C-Reactive Protein Total Protein Albumin Urine Creatinine Coronavirus (PCR) 12/24/20 12/24/20 12/24/20 12:29 12:29 16:05 WBC 2.5 L RBC 3.49 L MCHC 35 H Plt Count 132 L Lymph % (Auto) [place] % (Auto) 7.6 H Lymph # (Auto) 0.4 L Seg Neutrophils % 74.7 H Seg Neuts % (Manual) Lymphocytes % (Manual) Nucleated RBC % Seg Neutrophils # Seg Neutrophils # Man Lymphocytes # (Manual) D-Dimer Sodium Potassium Chloride BUN Creatinine Glucose 256 H POC Glucose 282 H Hemoglobin A1c Calcium 7.8 L Ferritin AST 50 H ALT Alkaline Phosphatase 262 H Lactate Dehydrogenase C-Reactive Protein Total Protein Albumin 2.8 L Urine Creatinine Coronavirus (PCR) 12/24/20 12/25/20 12/25/20 22:01 07:58 11:38 WBC RBC MCHC Plt Count Lymph % (Auto) [place] % (Auto) Lymph # (Auto) Seg Neutrophils % Seg Neuts % (Manual) Lymphocytes % (Manual) Nucleated RBC % Seg Neutrophils # Seg Neutrophils # Man Lymphocytes # (Manual) D-Dimer Sodium Potassium Chloride BUN Creatinine Glucose POC Glucose 366 H 278 H 325 H Hemoglobin A1c Calcium Ferritin AST ALT Alkaline Phosphatase Lactate Dehydrogenase C-Reactive Protein Total Protein Albumin Urine Creatinine Coronavirus (PCR) 12/25/20 12/25/20 12/26/20 15:47 21:31 04:29 WBC RBC MCHC Plt Count Lymph % (Auto) [place] % (Auto) Lymph # (Auto) Seg Neutrophils % Seg Neuts % (Manual) Lymphocytes % (Manual) Nucleated RBC % Seg Neutrophils # Seg Neutrophils # Man Lymphocytes # (Manual) D-Dimer Sodium Potassium Chloride BUN 22 H Creatinine Glucose 327 H POC Glucose 316 H 339 H Hemoglobin A1c Calcium 7.9 L Ferritin AST ALT Alkaline Phosphatase Lactate Dehydrogenase C-Reactive Protein Total Protein Albumin Urine Creatinine Coronavirus (PCR) 12/26/20 12/26/20 12/26/20 07:42 11:08 11:08 WBC RBC MCHC Plt Count Lymph % (Auto) [place] % (Auto) Lymph # (Auto) Seg Neutrophils % Seg Neuts % (Manual) Lymphocytes % (Manual) Nucleated RBC % Seg Neutrophils # Seg Neutrophils # Man Lymphocytes # (Manual) D-Dimer 4.54 H Sodium Potassium Chloride BUN Creatinine Glucose POC Glucose 353 H Hemoglobin A1c Calcium Ferritin 932.1 H AST ALT Alkaline Phosphatase Lactate Dehydrogenase C-Reactive Protein Total Protein Albumin Urine Creatinine Coronavirus (PCR) 12/26/20 12/26/20 12/26/20 11:08 11:57 16:40 WBC RBC MCHC Plt Count Lymph % (Auto) [place] % (Auto) Lymph # (Auto) Seg Neutrophils % Seg Neuts % (Manual) Lymphocytes % (Manual) Nucleated RBC % Seg Neutrophils # Seg Neutrophils # Man Lymphocytes # (Manual) D-Dimer Sodium Potassium Chloride BUN Creatinine Glucose POC Glucose 318 H 352 H Hemoglobin A1c Calcium Ferritin AST ALT Alkaline Phosphatase Lactate Dehydrogenase 698 H C-Reactive Protein 3.70 H Total Protein Albumin Urine Creatinine Coronavirus (PCR) 12/26/20 12/27/20 12/27/20 21:29 04:25 04:25 WBC RBC MCHC Plt Count Lymph % (Auto) 6.4 L [place] % (Auto) 7.5 H Lymph # (Auto) 0.5 L Seg Neutrophils % 85.9 H Seg Neuts % (Manual) Lymphocytes % (Manual) Nucleated RBC % Seg Neutrophils # Seg Neutrophils # Man Lymphocytes # (Manual) D-Dimer Sodium Potassium 5.4 H D Chloride BUN 30 H Creatinine Glucose 273 H POC Glucose 376 H Hemoglobin A1c Calcium 8.1 L Ferritin AST ALT Alkaline Phosphatase 242 H Lactate Dehydrogenase C-Reactive Protein Total Protein Albumin 2.7 L Urine Creatinine Coronavirus (PCR) 12/27/20 08:05 WBC RBC MCHC Plt Count Lymph % (Auto) [place] % (Auto) Lymph # (Auto) Seg Neutrophils % Seg Neuts % (Manual) Lymphocytes % (Manual) Nucleated RBC % Seg Neutrophils # Seg Neutrophils # Man Lymphocytes # (Manual) D-Dimer Sodium Potassium Chloride BUN Creatinine Glucose POC Glucose 287 H Hemoglobin A1c Calcium Ferritin AST ALT Alkaline Phosphatase Lactate Dehydrogenase C-Reactive Protein Total Protein Albumin Urine Creatinine Coronavirus (PCR)
[2020-12-27] MEDS: LORazepam 2 MG/ML VIAL IV PRN (15:31)
--- NOTE | 2020-12-27 17:22 | Progress Note ---
Assessment and Plan Cultures: Blood culture no growth today SARS-CoV-2 PCR positive Assessment: 55-year-old female with history, diabetes mellitus, morbid obesity, admitted on 12/20/2020 secondary to a week history of cough, generalized malaise, fever, chills, progressive shortness of breath: #Acute sepsis: Likely secondary to severe COVID-19 pneumonia. #Severe COVID-19 pneumonia: Patient with underlying interstitial lung disease per CT report secondary hospital. Inflammatory markers elevated. D-dimer 260. Ferritin 1420. LDH 491. CRP 5.5. Chest x-ray with bilateral patchy infiltrates. Procalcitonin is slightly up in the setting of HOMA. #Acute hypoxemic respiratory failure: Worsening 100% FiO2 high flow nasal cannula and NR mask. #Elevated creatinine: Likely secondary to COVID-19. Improving. #Elevated LFTs: Likely secondary to COVID-19. Improving. #Neutropenia/thrombocytopenia: Likely secondary to COVID-19. Worsening both thrombocytopenia and neutropenia Recommendations: -s/p tocilizumab -Completed Remdesivir -Completed ceftriaxone and azithromycin -Continue IV steroids per pulmonary -Monitor inflammatory markers - ferritin, Ddimer, CRP, LDH ordered stat today -Hematology consult worsening neutropenia and thrombocytopenia ? Covid induced autoimmune thrombocytopenia -Pulmonary on board -Continue anticoagulation per System Protocol -Prone positioning as possible Close monitoring patient risk for deterioration including intubation Will follow Ambreen Mathew MD [facility] O: [phone] F: [phone] Subjective Date of service: 12/27/20 Principal diagnosis: COVID-19 Interval history: Afebrile, normal white count. No growth so far on cultures. Objective - Exam Narrative Exam: General appearance: Alert, on HFNC Eyes: anicteric sclerae, moist conjunctivae; no lid-lag; PERRLA HENT: Normocephalic, Atraumatic; normal external ears, nares open, oropharynx limited Neck: supple, tracheal midline, no JVD Lungs: Bilateral scattered crackles CV: Tachycardic Abdomen: Soft, non-tender obese Extremities: no edema, no cyanosis Skin: No rash. Psych: Anxious Neuro: alert and oriented x 3. Moving all extermities - Constitutional Vitals: Vital Signs Temp Pulse Resp BP Pulse Ox 97.8 F 101 H 22 151/91 90 12/27/20 12:00 12/27/20 16:00 12/27/20 16:00 12/27/20 16:00 12/27/20 16:00 Temperature -Last 24 Hours Temperature 97.8 F Temperature 97.4 F Temperature 97.8 F Temperature 98.8 F Temperature 98.9 F - Labs CBC & Chem 7: 12/27/20 04:25 12/27/20 04:25 Labs: Abnormal lab results 12/26/20 12/27/20 12/27/20 Range/Units 21:29 04:25 04:25 Lymph % (Auto) 6.4 L (13.4-35.0) % [place] % (Auto) 7.5 H (0.0-7.3) % Lymph # (Auto) 0.5 L (1.2-5.4) K/mm3 Seg Neutrophils % 85.9 H (40.0-70.0) % Potassium 5.4 H D (3.6-5.0) mmol/L BUN 30 H (7-17) mg/dL Glucose 273 H (65-100) mg/dL POC Glucose 376 H (70-105) mg/dL Calcium 8.1 L (8.4-10.2) mg/dL Alkaline Phosphatase 242 H (35-129) units/L Albumin 2.7 L (3.9-5) g/dL 12/27/20 12/27/20 Range/Units 08:05 11:39 Lymph % (Auto) (13.4-35.0) % [place] % (Auto) (0.0-7.3) % Lymph # (Auto) (1.2-5.4) K/mm3 Seg Neutrophils % (40.0-70.0) % Potassium (3.6-5.0) mmol/L BUN (7-17) mg/dL Glucose (65-100) mg/dL POC Glucose 287 H 359 H (70-105) mg/dL Calcium (8.4-10.2) mg/dL Alkaline Phosphatase (35-129) units/L Albumin (3.9-5) g/dL
[2020-12-27] MEDS ORDERED: INSULIN GLARGINE 100 UNITS/ML SUB-Q SCH (22:00)
[2020-12-27] MEDS: ENOXAPARIN 40 MG/0.4 ML INJ SUB-Q SCH (22:07)
[2020-12-27] MEDS: oxyCODONE /ACETAMINOPHEN 5-325MG TAB PO PRN (22:49)
[2020-12-27] MEDS ORDERED: INSULIN LISPRO 100 UNIT/ML SUB-Q ONE (22:56)
[2020-12-28] MEDS: methylPREDNISolone Sod Succinate 125 MG/2 ML INJ IV SCH ×3 (05:25→23:07)
[2020-12-28 06:02] LABS: BUN/Creatinine Ratio 35; Blood Urea Nitrogen 35 mg/dL (7-17); Calcium 8.6 mg/dL (8.4-10.2); Hemolysis Index 38
--- NOTE | 2020-12-28 08:49 | Progress Note ---
Assessment and Plan Assessment and plan: --Sepsis due to COVID-19 pneumonia Procalcitonin low, no need for antibiotics --Severe, COVID-19 infection; Completed remdesivir Received Tocilizumab Continue IV steroids Monitor inflammatory markers Prone positioning as tolerated Home oxygen evaluation prior to discharge Follow ID and pulmonary recommendations Guarded prognosis --Acute hypoxic respiratory failure; Requiring BiPAP, full mask Wean as tolerated, Prone positioning Pulmonary and ID following --Diabetes mellitus type 2; uncontrolled,A1c 10.3 partly due to high-dose steroids Change the dose of insulin 70/30 20 units twice a day increase as needed Diabetic education, diabetic diet education --Morbid obesity; BMI 46.2 Patient needs weight reduction when medically stable Patient needs outpatient pulmonary evaluation for sleep study to evaluate for JERMAINE Continue BiPAP --Elevated LFTs probably Covid related; Present on admission, resolved today --DVT prophylaxis; Lovenox Closely monitor the patient and adjust the management as needed Cut Off Machine Helper recommendations noted and appreciated Current care time 35 minutes 12/21/2020. Follow-up COVID-19 testing. Continue to trend inflammatory markers. Continue dexamethasone. ID and pulmonary consultation pending. Patient currently with 6 L/min O2 FiO2 44%. 12/22/2020. COVID-19 testing found to be positive. Continue to trend inflammatory markers. Continue dexamethasone. Patient requiring more oxygen with high flow nasal cannula 30 L/min and FiO2 100%. ID and pulmonary following. 12/23/2020. Patient with increasing oxygen requirements with high flow nasal cannula 40 L/min with FiO2 100%. Continue dexamethasone per ID recommendations. We will transfer to IM for closer monitoring. 12/24/2020. Patient was transferred to IMCU for closer monitoring yesterday. Erik antoine currently requiring BiPAP with IPAP 16 and EPAP of 8 with FiO2 100%. Continue dexamethasone and remdesivir. Continue to trend inflammatory markers. Continue anticoagulation. Prone position as possible. Continue ceftriaxone and azithromycin per ID recommendations. 12/25/2020. Patient currently requiring BiPAP with IPAP 16 and EPAP of 8 with FiO2 100%. Continue IV steroids of Solu-Medrol 60 mg every 8 hour and remdesivir. Continue to trend inflammatory markers. Continue anticoagulation with Lovenox. Prone position as possible. Continue ceftriaxone and azithromycin per ID recommendations. Prognosis is guarded. 12/26/2020 BG not controlled with glipizide. Start Lantus at bedtime for BG control. Elevated BG likely secondary to IV steroid. Patient currently requiring BiPAP with IPAP 18 and EPAP of 10 with FiO2 100%. Continue IV steroids of Solu-Medrol 60 mg every 8 hour and remdesivir. Continue to trend inflammatory markers. Continue anticoagulation with Lovenox. Prone position as possible. Continue ceftriaxone and azithromycin per ID recommendations. Prognosis is guarded. 12/27/2020. Blood glucose is improved but not optimal. Therefore, increase Lantus to 14 units at bedtime. Elevated BG likely secondary to IV steroid. Patient currently requiring BiPAP with IPAP 18 and EPAP of 10 with FiO2 100%. Continue IV steroids of Solu-Medrol 60 mg every 8 hour and remdesivir. Continue to trend inflammatory markers. Continue anticoagulation with Lovenox. Prone position as possible. Continue ceftriaxone and azithromycin per ID recommendations. Prognosis is guarded. 12/28/2020; patient's blood sugars are uncontrolled, secondary to noncompliance, partly due to high-dose steroids Darshana hypoxic on continuous BiPAP Will DC Lantus[patient does not have resources] had 70/30 Novolin 20 units twice a day adjust as needed Patient's A1c 10.3, diabetic education nutrition education History Interval history: I have seen and examined the patient in IMCU this morning Strict isolation precautions and PPE protocols followed per COVID-19 guidelines throughout my evaluation at the bedside Patient will BiPAP with facemask saturating 96 to 97% In mild distress Vital signs reviewed Hospitalist Physical - Constitutional Vitals: Temp Pulse Resp BP Pulse Ox 98.6 F 83 24 141/77 97 12/28/20 04:00 12/28/20 07:01 12/28/20 07:01 12/28/20 07:01 12/28/20 07:01 General appearance: Present: mild distress, well-nourished, obese, other (On BiPAP) - EENT Eyes: Present: PERRL, EOM intact - Neck Neck: Present: supple, normal ROM - Respiratory Respiratory effort: normal Respiratory: bilateral: diminished, rhonchi, negative: rales, wheezing - Cardiovascular Rhythm: regular Heart Sounds: Present: S1 & S2 - Extremities Extremities: no ischemia, pulses intact - Abdominal General gastrointestinal: soft, non-tender, non-distended, normal bowel sounds - Integumentary Integumentary: Present: clear, warm - Psychiatric Psychiatric: appropriate mood/affect, cooperative - Neurologic Neurologic: CNII-XII intact, moves all extremities HEART Score - HEART Score Troponin: Troponin T < 0.010 ng/mL (0.00-0.029) 12/20/20 19:27 Results - Labs CBC & Chem 7: 12/27/20 04:25 12/28/20 04:41 Labs: Laboratory Last Values WBC 7.5 K/mm3 (4.5-11.0) 12/27/20 04:25 RBC 4.05 M/mm3 (3.65-5.03) 12/27/20 04:25 Hgb 13.1 gm/dl (10.1-14.3) 12/27/20 04:25 Hct 38.8 % (30.3-42.9) D 12/27/20 04:25 MCV 96 fl (79-97) 12/27/20 04:25 MCH 32 pg (28-32) 12/27/20 04:25 MCHC 34 % (30-34) 12/27/20 04:25 RDW 13.7 % (13.2-15.2) 12/27/20 04:25 Plt Count 230 K/mm3 (140-440) 12/27/20 04:25 Lymph % (Auto) 6.4 % (13.4-35.0) L 12/27/20 04:25 [place] % (Auto) 7.5 % (0.0-7.3) H 12/27/20 04:25 Eos % (Auto) 0.0 % (0.0-4.3) 12/27/20 04:25 Baso % (Auto) 0.2 % (0.0-1.8) 12/27/20 04:25 Lymph # (Auto) 0.5 K/mm3 (1.2-5.4) L 12/27/20 04:25 [place] # (Auto) 0.6 K/mm3 (0.0-0.8) 12/27/20 04:25 Eos # (Auto) 0.0 K/mm3 (0.0-0.4) 12/27/20 04:25 Baso # (Auto) 0.0 K/mm3 (0.0-0.1) 12/27/20 04:25 Add Manual Diff Complete 12/23/20 14:09 Total Counted 100 12/23/20 14:09 Seg Neutrophils % 85.9 % (40.0-70.0) H 12/27/20 04:25 Seg Neuts % (Manual) 87.0 % (40.0-70.0) H 12/23/20 14:09 Band Neutrophils % 4.0 % 12/23/20 14:09 Lymphocytes % (Manual) 3.0 % (13.4-35.0) L 12/23/20 14:09 Reactive Lymphs % (Man) 1.0 % 12/23/20 14:09 Monocytes % (Manual) 5.0 % (0.0-7.3) 12/23/20 14:09 Nucleated RBC % 1.0 % (0.0-0.9) H 12/23/20 14:09 Seg Neutrophils # 6.4 K/mm3 (1.8-7.7) 12/27/20 04:25 Seg Neutrophils # Man 1.6 K/mm3 (1.8-7.7) L 12/23/20 14:09 Band Neutrophils # 0.1 K/mm3 12/23/20 14:09 Lymphocytes # (Manual) 0.1 K/mm3 (1.2-5.4) L 12/23/20 14:09 Abs React Lymphs (Man) 0.0 K/mm3 12/23/20 14:09 Monocytes # (Manual) 0.1 K/mm3 (0.0-0.8) 12/23/20 14:09 Eosinophils # (Manual) 0.0 K/mm3 (0.0-0.4) 12/23/20 14:09 Basophils # (Manual) 0.0 K/mm3 (0.0-0.1) 12/23/20 14:09 Metamyelocytes # 0.0 K/mm3 12/23/20 14:09 Myelocytes # 0.0 K/mm3 12/23/20 14:09 Promyelocytes # 0.0 K/mm3 12/23/20 14:09 Blast Cells # 0.0 K/mm3 12/23/20 14:09 WBC Morphology Not Reportable 12/23/20 14:09 Hypersegmented Neuts Not Reportable 12/23/20 14:09 Hyposegmented Neuts Not Reportable 12/23/20 14:09 Hypogranular Neuts Not Reportable 12/23/20 14:09 Smudge Cells Not Reportable 12/23/20 14:09 Toxic Granulation Not Reportable 12/23/20 14:09 Toxic Vacuolation Not Reportable 12/23/20 14:09 Dohle Bodies Not Reportable 12/23/20 14:09 Pelger-Huet Anomaly Not Reportable 12/23/20 14:09 Jair Rods Not Reportable 12/23/20 14:09 Platelet Estimate Consistent w auto 12/23/20 14:09 Clumped Platelets Not Reportable 12/23/20 14:09 Plt Clumps, EDTA Not Reportable 12/23/20 14:09 Large Platelets Not Reportable 12/23/20 14:09 Giant Platelets Not Reportable 12/23/20 14:09 Platelet Satelliting Not Reportable 12/23/20 14:09 Plt Morphology Comment Not Reportable 12/23/20 14:09 RBC Morphology Normal 12/23/20 14:09 Dimorphic RBCs Not Reportable 12/23/20 14:09 Polychromasia Not Reportable 12/23/20 14:09 Hypochromasia Not Reportable 12/23/20 14:09 Poikilocytosis Not Reportable 12/23/20 14:09 Anisocytosis Not Reportable 12/23/20 14:09 Microcytosis Not Reportable 12/23/20 14:09 Macrocytosis Not Reportable 12/23/20 14:09 Spherocytes Not Reportable 12/23/20 14:09 Pappenheimer Bodies Not Reportable 12/23/20 14:09 Sickle Cells Not Reportable 12/23/20 14:09 Target Cells Not Reportable 12/23/20 14:09 Tear Drop Cells Not Reportable 12/23/20 14:09 Ovalocytes Not Reportable 12/23/20 14:09 Helmet Cells Not Reportable 12/23/20 14:09 [place] Bodies Not Reportable 12/23/20 14:09 [place] Rings Not Reportable 12/23/20 14:09 [place] Cells Not Reportable 12/23/20 14:09 Bite Cells Not Reportable 12/23/20 14:09 Crenated Cell Not Reportable 12/23/20 14:09 Elliptocytes Not Reportable 12/23/20 14:09 Acanthocytes (Spur) Not Reportable 12/23/20 14:09 Rouleaux Not Reportable 12/23/20 14:09 Hemoglobin C Crystals Not Reportable 12/23/20 14:09 Schistocytes Not Reportable 12/23/20 14:09 Malaria parasites Not Reportable 12/23/20 14:09 Giorgi Bodies Not Reportable 12/23/20 14:09 Hem Pathologist Commnt No 12/23/20 14:09 PT 13.1 Sec. (12.2-14.9) 12/21/20 05:50 INR 1.01 (0.87-1.13) 12/21/20 05:50 D-Dimer 1954.54 ng/mlDDU (0-234) H 12/26/20 11:08 Sodium 141 mmol/L (137-145) 12/28/20 04:41 Potassium 4.2 mmol/L (3.6-5.0) D 12/28/20 04:41 Chloride 99.5 mmol/L (98-107) 12/28/20 04:41 Carbon Dioxide 31 mmol/L (22-30) H 12/28/20 04:41 Anion Gap 15 mmol/L 12/28/20 04:41 BUN 35 mg/dL (7-17) H 12/28/20 04:41 Creatinine 1.0 mg/dL (0.6-1.2) 12/28/20 04:41 Estimated GFR > 60 ml/min 12/28/20 04:41 BUN/Creatinine Ratio 35 % 12/28/20 04:41 Glucose 328 mg/dL (65-100) H 12/28/20 04:41 POC Glucose 321 mg/dL (70-105) H 12/28/20 07:58 Hemoglobin A1c 10.3 % (4-6) H 12/21/20 05:50 Lactic Acid 1.40 mmol/L (0.7-2.0) 12/21/20 05:50 Calcium 8.6 mg/dL (8.4-10.2) 12/28/20 04:41 Magnesium 1.90 mg/dL (1.7-2.3) 12/26/20 04:29 Ferritin 932.1 ng/mL (10.0-200.0) H 12/26/20 11:08 Total Bilirubin 0.30 mg/dL (0.1-1.2) 12/27/20 04:25 AST 31 units/L (5-40) 12/27/20 04:25 ALT 28 units/L (7-56) 12/27/20 04:25 Alkaline Phosphatase 242 units/L (35-129) H 12/27/20 04:25 Lactate Dehydrogenase 698 units/L (91-180) H 12/26/20 11:08 Troponin T < 0.010 ng/mL (0.00-0.029) 12/20/20 19:27 C-Reactive Protein 3.70 mg/dL (0.00-1.30) H 12/26/20 11:08 Total Protein 7.3 g/dL (6.3-8.2) 12/27/20 04:25 Albumin 2.7 g/dL (3.9-5) L 12/27/20 04:25 Albumin/Globulin Ratio 0.6 % 12/27/20 04:25 Procalcitonin 0.07 ng/mL (<0.15) 12/26/20 11:08 Urine Color Yellow (Yellow) 12/22/20 03:00 Urine Turbidity Clear (Clear) 12/22/20 03:00 Urine pH 5.0 (5.0-7.0) 12/22/20 03:00 Ur Specific [place] 1.019 (1.003-1.030) 12/22/20 03:00 Urine Protein 100 mg/dl mg/dL (Negative) 12/22/20 03:00 Urine Glucose (UA) 50 mg/dL (Negative) 12/22/20 03:00 Urine Ketones Neg mg/dL (Negative) 12/22/20 03:00 Urine Blood Sm (Negative) 12/22/20 03:00 Urine Nitrite Neg (Negative) 12/22/20 03:00 Urine Bilirubin Neg (Negative) 12/22/20 03:00 Urine Urobilinogen 2.0 mg/dL (<2.0) 12/22/20 03:00 Ur Leukocyte Esterase Neg (Negative) 12/22/20 03:00 Urine WBC (Auto) 1.0 /HPF (0.0-6.0) 12/22/20 03:00 Urine RBC (Auto) 1.0 /HPF (0.0-6.0) 12/22/20 03:00 U Epithel Cells (Auto) 3.0 /HPF (0-13.0) 12/22/20 03:00 Urine Bacteria (Auto) 1+ /HPF (Negative) 12/22/20 03:00 Urine Mucus Few /HPF 12/22/20 03:00 Urine Eosinophils None seen (None Seen) 12/22/20 03:00 Urine Creatinine 117.9 mg/dL (0.1-20.0) H 12/22/20 03:00 Urine Sodium 67 mmol/L 12/22/20 03:00 Coronavirus (PCR) Positive (Negative) A 12/21/20 10:28 Hepatitis A IgM Ab Non-reactive (NonReactive) 12/22/20 06:00 Hep Bs Antigen Non-reactive (Negative) 12/22/20 06:00 Hep B Core IgM Ab Non-reactive (NonReactive) 12/22/20 06:00 Hepatitis C Antibody Non-reactive (NonReactive) 12/22/20 06:00 Curtis/IV: Voiding Method Indwelling Catheter Active Medications - Current Medications Current Medications: Generic Name Dose Route Start Last Admin Trade Name Freq PRN Reason Stop Dose Admin Acetaminophen 650 mg 12/20/20 23:15 12/24/20 09:40 Acetaminophen 325 Mg Tab PO 650 mg Q4H PRN Administration Pain MILD(1-3)/Fever >100.5/VARGAS Albuterol 2.5 mg 12/21/20 12:00 Albuterol 2.5 Mg/3 Ml Nebu IH Q4HRT PRN Shortness Of Breath Amlodipine Besylate 10 mg 12/26/20 14:00 12/27/20 09:22 Amlodipine 10 Mg Tab PO 10 mg QDAY TAMEKA Administration Dextrose 50 ml 12/20/20 23:15 Dextrose 50% In Water (25gm) 50 Ml Syringe IV Q30MIN PRN Hypoglycemia Protocol Enoxaparin Sodium 40 mg 12/21/20 22:00 12/27/20 22:07 Enoxaparin 40 Mg/0.4 Ml Inj SUB-Q 40 mg QDAY@2200 TAMEKA Administration Protocol Furosemide 40 mg 12/26/20 14:00 12/27/20 09:22 Furosemide 40 Mg/4 Ml Inj IV 40 mg QDAY TAMEKA Administration Gabapentin 800 mg 12/21/20 22:00 12/27/20 22:07 Gabapentin 400 Mg Cap PO 800 mg BID TAMEKA Administration Glipizide 10 mg 12/21/20 10:00 12/27/20 17:49 Glipizide 10 Mg Tab PO Not Given BIDDIAB TAMEKA Guaifenesin 200 mg 12/21/20 16:00 12/22/20 20:41 Guaifenesin 100 Mg/5 Ml Oral Liqd PO 200 mg Q4H PRN Administration Cough Insulin Human Isoph/Insulin Regular 25 unit 12/28/20 17:00 Insulin Nph/Regular 70/30 Inj SUB-Q BIDDIAB TAMEKA Insulin Human Lispro 0 unit 12/21/20 07:30 12/27/20 22:20 Insulin Lispro 100 Unit/Ml SUB-Q 8 unit ACHS TAMEKA Administration Protocol Lorazepam 0.5 mg 12/23/20 20:12 12/27/20 15:31 Lorazepam 2 Mg/Ml Vial IV 0.5 mg Q6H PRN Administration Anxiety Magnesium Hydroxide 30 ml 12/20/20 23:15 Magnesium Hydroxide (Mom) Oral Liqd Udc PO Q4H PRN Constipation Methylprednisolone Sodium Succinate 60 mg 12/23/20 22:00 12/28/20 05:25 Methylprednisolone Sod Succinate 125 Mg/2 Ml Inj IV 60 mg Q8HR TAMEKA Administration Morphine Sulfate 2 mg 12/20/20 23:15 12/25/20 22:10 Morphine 2 Mg/1 Ml Inj IV 2 mg Q4H PRN Administration Pain, Moderate (4-6) Ondansetron HCl 4 mg 12/20/20 23:15 Ondansetron 4 Mg/2 Ml Inj IV Q8H PRN Nausea And Vomiting Oxycodone/Acetaminophen 1 tab 12/21/20 16:00 12/27/20 22:49 Oxycodone /Acetaminophen 5-325mg Tab PO 1 tab Q6H PRN Administration Pain, Moderate (4-6) Sodium Chloride 10 ml 12/21/20 10:00 12/27/20 22:09 Sodium Chloride 0.9% 10 Ml Flush Syringe IV 10 ml BID TAMEKA Administration Sodium Chloride 10 ml 12/20/20 23:15 12/21/20 18:48 Sodium Chloride 0.9% 10 Ml Flush Syringe IV 10 ml PRN PRN Administration LINE FLUSH Sodium Chloride 1 applic 12/22/20 12:00 12/27/20 22:06 [place] Saline Nasal Gel 14.1 Gm NS 1 applic BID TAMEKA Administration Nutrition/Malnutrition Assess - Dietary Evaluation Nutrition/Malnutrition Findings: Nutrition Notes Start: 12/21/20 09:35 Freq: Status: Active Protocol: Document 12/27/20 14:05 CW (Rec: 12/27/20 14:14 CW [id number]) Nutrition Notes Initial or Follow up Reassessment Current Diagnosis Diabetes,Hypertension, Respiratory Failure Other Pertinent Diagnosis pneu, COVID 19(+), SOB, Diabetic Neuropathy Current Diet Cardiac Consistent Carbohydrate Labs/Tests K 5.4 BUN 30 BG 273 Pertinent Medications Humalog Lasix Glipizide Solumedrol Kionex Humulin Height 5 ft 7 in Weight 138.9 kg [place] Body Weight (kg) 61.36 BMI 47.9 Weight Status Morbidly Obese Subjective/Other Information F/U for stable intakes and ONS tolerance. Per RN pt's intake is low, 25%, d/t continous BiPAP. No ONS ordered likely r /t diet order changes. Will order Nepro d/t elevated K. Percent of energy/protein needs met: 25%/26% Burn Absent Trauma Absent GI Symptoms None Current % PO Poor (25-49%) Minimum of two criteria No physical signs of malnutrition #1 Nutrition Diagnosis Inadequate oral intake As Evidenced by Signs and Symptoms consumption of solid foods is diificult d/t need for continuous BiPAP Diagnosis Progress(for reassessment Continues documentation) Is patient on ventilator? No Is Patient Ambulatory and/or Out of Bed Yes REE-([facility]-ambulatory/OOB) [ 2621.619 [id number]] Kcal/Kg value to use for calculation 14 Approximate Energy Requirements Using 1945 kcal/Kg Calculation Used for Recommendations Kcal/kg Additional Notes PRO needs: 82-102g (0.8-1g/kg AdBW 102 kg) Fluid needs: 1 mL/kcal or per MD Nutrition Intervention Change Diet Order: Continue current diet as ordered Add Supplement/Snack (indicate name/kcal Nepro BID /protein ) Provides kCal: 850 Provides Protein (gm) 38 Goal #1 Meet at least 75% of energy and protein needs via diet and ONS Anticipated Discharge Needs: Cardiac/Consistent CHO Follow-Up By: 12/29/20 Additional Comments F/U for intakes and ONS tolerance
[2020-12-28] MEDS: INSULIN LISPRO 100 UNIT/ML SUB-Q SCH ×4 (08:52→23:29)
[2020-12-28] MEDS: glipiZIDE 10 MG TAB PO SCH ×2 (08:53→17:46)
--- NOTE | 2020-12-28 08:54 | Progress Note ---
Assessment and Plan 1. Acute kidney injury: HOMA in the setting of vasomotor insult vs Covid infection. Renal US negative. Monitor renal function. Creatinine level is better. Avoid nephrotoxic agents. Meds dosage based on GFR. 2. FEN: Hyperkalemia, improved, monitor. Monitor volume status and lytes. 3. Covid infection: Isolation, follow inflammatory markers. Followed by ID. 4. Acute on chronic hypoxemic respiratory failure, POA: 2/2 COVID infection. CXR showed mild patchy parenchymal opacities bilaterally. On BIPAP / HFNC O2. 5. DM type 2: SSI. Monitor bl sugar. 6. HTN: Monitor BP. Adjust meds as needed. 7. Leukopenia: Monitor. 8. Elevated Transaminases: Trend. Will see patient intermittently if needed. Subjective: Patient was seen and examined at the bedside. Patient is in IMCU. Objective: General appearance: well-developed, appears stated age, morbidly obese, on BIPAP HEENT: ATNC Neck: trachea midline Respiratory: coarse breath sounds Heart: regular, S1S2, no murmur Gastrointestinal: soft, normoactive bowel sounds, not tender Integumentary: no obvious rash Ext: no edema Neurologic: able to move extremities : Curtis catheter Subjective Date of service: 12/28/20 Principal diagnosis: COVID-19 Objective - Vital Signs Vital signs: Vital Signs - 12hr 12/27/20 12/27/20 12/27/20 21:00 22:00 22:49 Temperature Pulse Rate 113 H 104 H Pulse Rate [ From Monitor] Respiratory 38 H 35 H 25 H Rate Blood Pressure 154/92 148/98 O2 Sat by Pulse 92 96 Oximetry 12/27/20 12/27/20 12/28/20 23:00 23:15 00:00 Temperature 97.6 F Pulse Rate 90 87 80 Pulse Rate [ 81 From Monitor] Respiratory 32 H 28 H 20 Rate Blood Pressure 122/63 122/63 116/62 O2 Sat by Pulse 95 96 98 Oximetry 12/28/20 12/28/20 12/28/20 01:00 02:01 03:00 Temperature Pulse Rate 77 84 78 Pulse Rate [ From Monitor] Respiratory 18 19 20 Rate Blood Pressure 112/61 110/59 146/80 O2 Sat by Pulse 98 94 97 Oximetry 12/28/20 12/28/20 12/28/20 03:36 04:00 04:01 Temperature 98.6 F Pulse Rate 83 87 90 Pulse Rate [ 87 From Monitor] Respiratory 20 26 H 19 Rate Blood Pressure 150/81 O2 Sat by Pulse 97 99 99 Oximetry 12/28/20 12/28/20 12/28/20 05:01 06:01 07:01 Temperature Pulse Rate 71 78 83 Pulse Rate [ From Monitor] Respiratory 19 20 24 Rate Blood Pressure 132/66 149/47 141/77 O2 Sat by Pulse 97 97 97 Oximetry - Lab 12/27/20 04:25 12/28/20 04:41 Most recent lab results Calcium 8.6 mg/dL (8.4-10.2) 12/28/20 04:41 Magnesium 1.90 mg/dL (1.7-2.3) 12/26/20 04:29 Urine Creatinine 117.9 mg/dL (0.1-20.0) H 12/22/20 03:00 Urine Sodium 67 mmol/L 12/22/20 03:00 Medications & Allergies - Medications Allergies/Adverse Reactions: Allergies No Known Allergies Allergy (Verified 12/29/14 22:38) Home Medications: Home Medications Medication Instructions Recorded Confirmed Last Taken Type Cyclobenzaprine [Flexeril 10 MG 10 mg PO QHS PRN 12/21/20 12/21/20 Unknown Hist ory TAB] Gabapentin [Neurontin] 800 mg PO TID 12/21/20 12/21/20 12/20/20 History metFORMIN [Glucophage] 1,000 mg PO BID 12/21/20 12/21/20 12/20/20 History traMADoL [Ultram 50 MG tab] 50 mg PO BID PRN MDD 100 12/21/20 12/21/20 Unknown History Levothyroxine 137 mcg PO QDAY 12/26/20 12/26/20 12/20/20 08:00 History Active Medications: Generic Name Dose Route Start Last Admin Trade Name Freq PRN Reason Stop Dose Admin Acetaminophen 650 mg 12/20/20 23:15 12/24/20 09:40 Acetaminophen 325 Mg Tab PO 650 mg Q4H PRN Administration Pain MILD(1-3)/Fever >100.5/VARGAS Albuterol 2.5 mg 12/21/20 12:00 Albuterol 2.5 Mg/3 Ml Nebu IH Q4HRT PRN Shortness Of Breath Amlodipine Besylate 10 mg 12/26/20 14:00 12/27/20 09:22 Amlodipine 10 Mg Tab PO 10 mg QDAY TAMEKA Administration Dextrose 50 ml 12/20/20 23:15 Dextrose 50% In Water (25gm) 50 Ml Syringe IV Q30MIN PRN Hypoglycemia Protocol Enoxaparin Sodium 40 mg 12/21/20 22:00 12/27/20 22:07 Enoxaparin 40 Mg/0.4 Ml Inj SUB-Q 40 mg QDAY@2200 TAMEKA Administration Protocol Furosemide 40 mg 12/26/20 14:00 12/27/20 09:22 Furosemide 40 Mg/4 Ml Inj IV 40 mg QDAY TAMEKA Administration Gabapentin 800 mg 12/21/20 22:00 12/27/20 22:07 Gabapentin 400 Mg Cap PO 800 mg BID TAMEKA Administration Glipizide 10 mg 12/21/20 10:00 12/27/20 17:49 Glipizide 10 Mg Tab PO Not Given BIDDIAB [facility] Guaifenesin 200 mg 12/21/20 16:00 12/22/20 20:41 Guaifenesin 100 Mg/5 Ml Oral Liqd PO 200 mg Q4H PRN Administration Cough Insulin Human Isoph/Insulin Regular 25 unit 12/28/20 09:00 Insulin Nph/Regular 70/30 Inj SUB-Q BIDDIAB TAMEKA Insulin Human Lispro 0 unit 12/21/20 07:30 12/27/20 22:20 Insulin Lispro 100 Unit/Ml SUB-Q 8 unit ACHS TAMEKA Administration Protocol Lorazepam 0.5 mg 12/23/20 20:12 12/27/20 15:31 Lorazepam 2 Mg/Ml Vial IV 0.5 mg Q6H PRN Administration Anxiety Magnesium Hydroxide 30 ml 12/20/20 23:15 Magnesium Hydroxide (Mom) Oral Liqd Udc PO Q4H PRN Constipation Methylprednisolone Sodium Succinate 60 mg 12/23/20 22:00 12/28/20 05:25 Methylprednisolone Sod Succinate 125 Mg/2 Ml Inj IV 60 mg Q8HR TAMEKA Administration Morphine Sulfate 2 mg 12/20/20 23:15 12/25/20 22:10 Morphine 2 Mg/1 Ml Inj IV 2 mg Q4H PRN Administration Pain, Moderate (4-6) Ondansetron HCl 4 mg 12/20/20 23:15 Ondansetron 4 Mg/2 Ml Inj IV Q8H PRN Nausea And Vomiting Oxycodone/Acetaminophen 1 tab 12/21/20 16:00 12/27/20 22:49 Oxycodone /Acetaminophen 5-325mg Tab PO 1 tab Q6H PRN Administration Pain, Moderate (4-6) Sodium Chloride 10 ml 12/21/20 10:00 12/27/20 22:09 Sodium Chloride 0.9% 10 Ml Flush Syringe IV 10 ml BID TAMEKA Administration Sodium Chloride 10 ml 12/20/20 23:15 12/21/20 18:48 Sodium Chloride 0.9% 10 Ml Flush Syringe IV 10 ml PRN PRN Administration LINE FLUSH Sodium Chloride 1 applic 12/22/20 12:00 12/27/20 22:06 [place] Saline Nasal Gel 14.1 Gm NS 1 applic BID TAMEKA Administration
--- NOTE | 2020-12-28 09:04 | Progress Note ---
Assessment and Plan 55 y/o female with acute respiratory failure secondary to cOVID 19 with prior history of ILD on a CT in [facility] 12/28/20: Continue steroids and lasix, may need to ask renal about BID dosing for a few days to see if this will help. Prone as tolerated during the day and sleep prone at night. 1. Agree with change in steroids to solumedrol 60q8, will continue for now 2. Agree with daily lasix but goal should be daily net negative state. 3. Prone as tolerated during the day and sleep prone at night 4. Guarded prognosis Subjective Date of service: 12/28/20 Principal diagnosis: COVID-19 Interval history: No acute events. Oxygen not documented yet today. Wore bipap therapy last night. Objective Vital Signs - 12hr 12/27/20 12/27/20 12/27/20 22:00 22:49 23:00 Temperature Pulse Rate 104 H 90 Pulse Rate [ From Monitor] Respiratory 35 H 25 H 32 H Rate Blood Pressure 148/98 122/63 O2 Sat by Pulse 96 95 Oximetry 12/27/20 12/28/20 12/28/20 23:15 00:00 01:00 Temperature 97.6 F Pulse Rate 87 80 77 Pulse Rate [ 81 From Monitor] Respiratory 28 H 20 18 Rate Blood Pressure 122/63 116/62 112/61 O2 Sat by Pulse 96 98 98 Oximetry 12/28/20 12/28/20 12/28/20 02:01 03:00 03:36 Temperature Pulse Rate 84 78 83 Pulse Rate [ From Monitor] Respiratory 19 20 20 Rate Blood Pressure 110/59 146/80 O2 Sat by Pulse 94 97 97 Oximetry 12/28/20 12/28/20 12/28/20 04:00 04:01 05:01 Temperature 98.6 F Pulse Rate 87 90 71 Pulse Rate [ 87 From Monitor] Respiratory 26 H 19 19 Rate Blood Pressure 150/81 132/66 O2 Sat by Pulse 99 99 97 Oximetry 12/28/20 12/28/20 06:01 07:01 Temperature Pulse Rate 78 83 Pulse Rate [ From Monitor] Respiratory 20 24 Rate Blood Pressure 149/47 141/77 O2 Sat by Pulse 97 97 Oximetry Constitutional: no acute distress, alert (obese), other (on BIPAP) Eyes: non-icteric ENT: oropharynx moist Neck: supple Effort: normal Ascultation: Bilateral: clear, diminished breath sounds (anteriorly) Cardiovascular: regular rate and rhythm (no mrg) Gastrointestinal: normoactive bowel sounds, soft, non-tender, non-distended Integumentary: normal Extremities: no cyanosis, no edema, pink and warm Neurologic: normal mental status, non-focal exam Psychiatric: mood appropriate, affect normal CBC and BMP: 12/27/20 04:25 12/28/20 04:41 ABG, PT/INR, D-dimer: PT/INR, D-dimer PT 13.1 Sec. (12.2-14.9) 12/21/20 05:50 INR 1.01 (0.87-1.13) 12/21/20 05:50 D-Dimer 1954.54 ng/mlDDU (0-234) H 12/26/20 11:08 Abnormal lab findings: Abnormal Labs 12/20/20 12/20/20 12/20/20 19:27 19:27 19:27 WBC 2.9 L RBC MCHC Plt Count 116 L Lymph % (Auto) 41.2 H [place] % (Auto) 13.2 H Lymph # (Auto) Seg Neutrophils % Seg Neuts % (Manual) Lymphocytes % (Manual) Nucleated RBC % Seg Neutrophils # 1.3 L Seg Neutrophils # Man Lymphocytes # (Manual) D-Dimer 260.58 H Sodium 135 L Potassium Chloride 96.1 L Carbon Dioxide BUN 23 H Creatinine 1.4 H Glucose 295 H POC Glucose Hemoglobin A1c Calcium 8.3 L Ferritin AST 125 H ALT 96 H Alkaline Phosphatase 323 H Lactate Dehydrogenase C-Reactive Protein Total Protein 8.7 H Albumin 3.7 L Urine Creatinine Coronavirus (PCR) 12/20/20 12/20/20 12/21/20 19:43 19:43 05:50 WBC RBC MCHC Plt Count Lymph % (Auto) [place] % (Auto) Lymph # (Auto) Seg Neutrophils % Seg Neuts % (Manual) Lymphocytes % (Manual) Nucleated RBC % Seg Neutrophils # Seg Neutrophils # Man Lymphocytes # (Manual) D-Dimer Sodium Potassium Chloride Carbon Dioxide BUN Creatinine Glucose 297 H POC Glucose Hemoglobin A1c 10.3 H Calcium Ferritin 1420.0 H AST ALT Alkaline Phosphatase Lactate Dehydrogenase 491 H C-Reactive Protein 5.50 H Total Protein Albumin Urine Creatinine Coronavirus (PCR) 12/21/20 12/21/20 12/21/20 05:50 05:50 08:04 WBC 1.6 L* RBC 3.40 L MCHC Plt Count 104 L Lymph % (Auto) [place] % (Auto) Lymph # (Auto) Seg Neutrophils % Seg Neuts % (Manual) 82.0 H Lymphocytes % (Manual) Nucleated RBC % Seg Neutrophils # Seg Neutrophils # Man 1.3 L Lymphocytes # (Manual) 0.3 L D-Dimer Sodium 132 L Potassium 5.7 H D Chloride 95.7 L Carbon Dioxide BUN 33 H Creatinine 1.7 H Glucose 500 H POC Glucose 483 H Hemoglobin A1c Calcium 7.7 L Ferritin AST ALT Alkaline Phosphatase Lactate Dehydrogenase C-Reactive Protein Total Protein Albumin Urine Creatinine Coronavirus (PCR) 12/21/20 12/21/20 12/21/20 10:28 12:05 16:54 WBC RBC MCHC Plt Count Lymph % (Auto) [place] % (Auto) Lymph # (Auto) Seg Neutrophils % Seg Neuts % (Manual) Lymphocytes % (Manual) Nucleated RBC % Seg Neutrophils # Seg Neutrophils # Man Lymphocytes # (Manual) D-Dimer Sodium Potassium Chloride Carbon Dioxide BUN Creatinine Glucose POC Glucose 482 H 374 H Hemoglobin A1c Calcium Ferritin AST ALT Alkaline Phosphatase Lactate Dehydrogenase C-Reactive Protein Total Protein Albumin Urine Creatinine Coronavirus (PCR) Positive A 12/21/20 12/21/20 12/22/20 18:24 22:12 03:00 WBC RBC MCHC Plt Count Lymph % (Auto) [place] % (Auto) Lymph # (Auto) Seg Neutrophils % Seg Neuts % (Manual) Lymphocytes % (Manual) Nucleated RBC % Seg Neutrophils # Seg Neutrophils # Man Lymphocytes # (Manual) D-Dimer Sodium 131 L Potassium Chloride 95.2 L Carbon Dioxide BUN 37 H Creatinine 1.4 H Glucose 417 H POC Glucose 358 H Hemoglobin A1c Calcium 7.5 L Ferritin AST 82 H ALT 69 H Alkaline Phosphatase 262 H Lactate Dehydrogenase C-Reactive Protein Total Protein Albumin 3.0 L Urine Creatinine 117.9 H Coronavirus (PCR) 12/22/20 12/22/20 12/22/20 05:29 08:19 11:18 WBC RBC MCHC Plt Count Lymph % (Auto) [place] % (Auto) Lymph # (Auto) Seg Neutrophils % Seg Neuts % (Manual) Lymphocytes % (Manual) Nucleated RBC % Seg Neutrophils # Seg Neutrophils # Man Lymphocytes # (Manual) D-Dimer Sodium Potassium Chloride Carbon Dioxide BUN 34 H Creatinine 1.3 H Glucose 169 H POC Glucose 136 H 132 H Hemoglobin A1c Calcium 7.5 L Ferritin AST 74 H ALT 60 H Alkaline Phosphatase 249 H Lactate Dehydrogenase C-Reactive Protein Total Protein Albumin 3.1 L Urine Creatinine Coronavirus (PCR) 12/22/20 12/22/20 12/22/20 14:18 14:18 16:36 WBC RBC MCHC Plt Count Lymph % (Auto) [place] % (Auto) Lymph # (Auto) Seg Neutrophils % Seg Neuts % (Manual) Lymphocytes % (Manual) Nucleated RBC % Seg Neutrophils # Seg Neutrophils # Man Lymphocytes # (Manual) D-Dimer Sodium Potassium Chloride Carbon Dioxide BUN Creatinine Glucose POC Glucose 440 H Hemoglobin A1c Calcium Ferritin 1295.0 H AST ALT Alkaline Phosphatase Lactate Dehydrogenase 620 H C-Reactive Protein 2.70 H Total Protein Albumin Urine Creatinine Coronavirus (PCR) 12/22/20 12/23/20 12/23/20 21:07 08:09 11:30 WBC RBC MCHC Plt Count Lymph % (Auto) [place] % (Auto) Lymph # (Auto) Seg Neutrophils % Seg Neuts % (Manual) Lymphocytes % (Manual) Nucleated RBC % Seg Neutrophils # Seg Neutrophils # Man Lymphocytes # (Manual) D-Dimer Sodium Potassium Chloride Carbon Dioxide BUN Creatinine Glucose POC Glucose 493 H 156 H 185 H Hemoglobin A1c Calcium Ferritin AST ALT Alkaline Phosphatase Lactate Dehydrogenase C-Reactive Protein Total Protein Albumin Urine Creatinine Coronavirus (PCR) 12/23/20 12/23/20 12/23/20 14:09 14:09 16:26 WBC 1.8 L* RBC 3.45 L MCHC Plt Count 114 L Lymph % (Auto) [place] % (Auto) Lymph # (Auto) Seg Neutrophils % Seg Neuts % (Manual) 87.0 H Lymphocytes % (Manual) 3.0 L Nucleated RBC % 1.0 H Seg Neutrophils # Seg Neutrophils # Man 1.6 L Lymphocytes # (Manual) 0.1 L D-Dimer Sodium Potassium Chloride Carbon Dioxide BUN 19 H Creatinine Glucose 292 H POC Glucose 351 H Hemoglobin A1c Calcium 7.4 L Ferritin AST 71 H ALT Alkaline Phosphatase 264 H Lactate Dehydrogenase C-Reactive Protein Total Protein Albumin 3.0 L Urine Creatinine Coronavirus (PCR) 12/23/20 12/24/20 12/24/20 21:11 08:21 11:58 WBC RBC MCHC Plt Count Lymph % (Auto) [place] % (Auto) Lymph # (Auto) Seg Neutrophils % Seg Neuts % (Manual) Lymphocytes % (Manual) Nucleated RBC % Seg Neutrophils # Seg Neutrophils # Man Lymphocytes # (Manual) D-Dimer Sodium Potassium Chloride Carbon Dioxide BUN Creatinine Glucose POC Glucose 288 H 286 H 277 H Hemoglobin A1c Calcium Ferritin AST ALT Alkaline Phosphatase Lactate Dehydrogenase C-Reactive Protein Total Protein Albumin Urine Creatinine Coronavirus (PCR) 12/24/20 12/24/20 12/24/20 12:29 12:29 16:05 WBC 2.5 L RBC 3.49 L MCHC 35 H Plt Count 132 L Lymph % (Auto) [place] % (Auto) 7.6 H Lymph # (Auto) 0.4 L Seg Neutrophils % 74.7 H Seg Neuts % (Manual) Lymphocytes % (Manual) Nucleated RBC % Seg Neutrophils # Seg Neutrophils # Man Lymphocytes # (Manual) D-Dimer Sodium Potassium Chloride Carbon Dioxide BUN Creatinine Glucose 256 H POC Glucose 282 H Hemoglobin A1c Calcium 7.8 L Ferritin AST 50 H ALT Alkaline Phosphatase 262 H Lactate Dehydrogenase C-Reactive Protein Total Protein Albumin 2.8 L Urine Creatinine Coronavirus (PCR) 12/24/20 12/25/20 12/25/20 22:01 07:58 11:38 WBC RBC MCHC Plt Count Lymph % (Auto) [place] % (Auto) Lymph # (Auto) Seg Neutrophils % Seg Neuts % (Manual) Lymphocytes % (Manual) Nucleated RBC % Seg Neutrophils # Seg Neutrophils # Man Lymphocytes # (Manual) D-Dimer Sodium Potassium Chloride Carbon Dioxide BUN Creatinine Glucose POC Glucose 366 H 278 H 325 H Hemoglobin A1c Calcium Ferritin AST ALT Alkaline Phosphatase Lactate Dehydrogenase C-Reactive Protein Total Protein Albumin Urine Creatinine Coronavirus (PCR) 12/25/20 12/25/20 12/26/20 15:47 21:31 04:29 WBC RBC MCHC Plt Count Lymph % (Auto) [place] % (Auto) Lymph # (Auto) Seg Neutrophils % Seg Neuts % (Manual) Lymphocytes % (Manual) Nucleated RBC % Seg Neutrophils # Seg Neutrophils # Man Lymphocytes # (Manual) D-Dimer Sodium Potassium Chloride Carbon Dioxide BUN 22 H Creatinine Glucose 327 H POC Glucose 316 H 339 H Hemoglobin A1c Calcium 7.9 L Ferritin AST ALT Alkaline Phosphatase Lactate Dehydrogenase C-Reactive Protein Total Protein Albumin Urine Creatinine Coronavirus (PCR) 12/26/20 12/26/20 12/26/20 07:42 11:08 11:08 WBC RBC MCHC Plt Count Lymph % (Auto) [place] % (Auto) Lymph # (Auto) Seg Neutrophils % Seg Neuts % (Manual) Lymphocytes % (Manual) Nucleated RBC % Seg Neutrophils # Seg Neutrophils # Man Lymphocytes # (Manual) D-Dimer 1954.54 H Sodium Potassium Chloride Carbon Dioxide BUN Creatinine Glucose POC Glucose 353 H Hemoglobin A1c Calcium Ferritin 932.1 H AST ALT Alkaline Phosphatase Lactate Dehydrogenase C-Reactive Protein Total Protein Albumin Urine Creatinine Coronavirus (PCR) 12/26/20 12/26/20 12/26/20 11:08 11:57 16:40 WBC RBC MCHC Plt Count Lymph % (Auto) [place] % (Auto) Lymph # (Auto) Seg Neutrophils % Seg Neuts % (Manual) Lymphocytes % (Manual) Nucleated RBC % Seg Neutrophils # Seg Neutrophils # Man Lymphocytes # (Manual) D-Dimer Sodium Potassium Chloride Carbon Dioxide BUN Creatinine Glucose POC Glucose 318 H 352 H Hemoglobin A1c Calcium Ferritin AST ALT Alkaline Phosphatase Lactate Dehydrogenase 698 H C-Reactive Protein 3.70 H Total Protein Albumin Urine Creatinine Coronavirus (PCR) 12/26/20 12/27/20 12/27/20 21:29 04:25 04:25 WBC RBC MCHC Plt Count Lymph % (Auto) 6.4 L [place] % (Auto) 7.5 H Lymph # (Auto) 0.5 L Seg Neutrophils % 85.9 H Seg Neuts % (Manual) Lymphocytes % (Manual) Nucleated RBC % Seg Neutrophils # Seg Neutrophils # Man Lymphocytes # (Manual) D-Dimer Sodium Potassium 5.4 H D Chloride Carbon Dioxide BUN 30 H Creatinine Glucose 273 H POC Glucose 376 H Hemoglobin A1c Calcium 8.1 L Ferritin AST ALT Alkaline Phosphatase 242 H Lactate Dehydrogenase C-Reactive Protein Total Protein Albumin 2.7 L Urine Creatinine Coronavirus (PCR) 12/27/20 12/27/20 12/27/20 08:05 11:39 17:28 WBC RBC MCHC Plt Count Lymph % (Auto) [place] % (Auto) Lymph # (Auto) Seg Neutrophils % Seg Neuts % (Manual) Lymphocytes % (Manual) Nucleated RBC % Seg Neutrophils # Seg Neutrophils # Man Lymphocytes # (Manual) D-Dimer Sodium Potassium Chloride Carbon Dioxide BUN Creatinine Glucose POC Glucose 287 H 359 H 490 H Hemoglobin A1c Calcium Ferritin AST ALT Alkaline Phosphatase Lactate Dehydrogenase C-Reactive Protein Total Protein Albumin Urine Creatinine Coronavirus (PCR) 12/27/20 12/27/20 12/28/20 21:43 21:53 04:41 WBC RBC MCHC Plt Count Lymph % (Auto) [place] % (Auto) Lymph # (Auto) Seg Neutrophils % Seg Neuts % (Manual) Lymphocytes % (Manual) Nucleated RBC % Seg Neutrophils # Seg Neutrophils # Man Lymphocytes # (Manual) D-Dimer Sodium Potassium Chloride Carbon Dioxide 31 H BUN 35 H Creatinine Glucose 328 H POC Glucose 503 H 438 H Hemoglobin A1c Calcium Ferritin AST ALT Alkaline Phosphatase Lactate Dehydrogenase C-Reactive Protein Total Protein Albumin Urine Creatinine Coronavirus (PCR) 12/28/20 07:58 WBC RBC MCHC Plt Count Lymph % (Auto) [place] % (Auto) Lymph # (Auto) Seg Neutrophils % Seg Neuts % (Manual) Lymphocytes % (Manual) Nucleated RBC % Seg Neutrophils # Seg Neutrophils # Man Lymphocytes # (Manual) D-Dimer Sodium Potassium Chloride Carbon Dioxide BUN Creatinine Glucose POC Glucose 321 H Hemoglobin A1c Calcium Ferritin AST ALT Alkaline Phosphatase Lactate Dehydrogenase C-Reactive Protein Total Protein Albumin Urine Creatinine Coronavirus (PCR)
[2020-12-28] MEDS: amLODIPine 10 MG TAB PO SCH (09:33)
[2020-12-28] MEDS: GABAPENTIN 400 MG CAP PO SCH ×2 (09:34→23:06)
[2020-12-28] MEDS: FUROSEMIDE 40 MG/4 ML INJ IV SCH (09:34)
[2020-12-28] MEDS: INSULIN NPH/REGULAR 70/30 INJ SUB-Q SCH ×2 (09:36→18:58)
[2020-12-28] MEDS: AYR SALINE NASAL GEL 14.1 GM NS SCH ×2 (09:54→23:10)
--- NOTE | 2020-12-28 16:01 | Progress Note ---
Assessment and Plan Cultures: Blood culture no growth today SARS-CoV-2 PCR positive Assessment: 55-year-old female with history, diabetes mellitus, morbid obesity, admitted on 12/20/2020 secondary to a week history of cough, generalized malaise, fever, chills, progressive shortness of breath: #Acute sepsis: Likely secondary to severe COVID-19 pneumonia. #Severe COVID-19 pneumonia: Patient with underlying interstitial lung disease per CT report secondary hospital. Inflammatory markers elevated. D-dimer 260. Ferritin 1420. LDH 491. CRP 5.5. Chest x-ray with bilateral patchy infiltrates. Procalcitonin is slightly up in the setting of HOMA. #Acute hypoxemic respiratory failure: Worsening 100% FiO2 high flow nasal cannula and NR mask. #Elevated creatinine: Likely secondary to COVID-19. Improving. #Elevated LFTs: Likely secondary to COVID-19. Improving. #Neutropenia/thrombocytopenia: Likely secondary to COVID-19. Worsening both thrombocytopenia and neutropenia Recommendations: -s/p tocilizumab -Completed Remdesivir -Completed ceftriaxone and azithromycin -Continue IV steroids per pulmonary -Monitor inflammatory markers - ferritin, Ddimer, CRP, LDH ordered stat today -Hematology consult worsening neutropenia and thrombocytopenia ? Covid induced autoimmune thrombocytopenia -Pulmonary on board -Continue anticoagulation per System Protocol -Prone positioning as possible Close monitoring patient risk for deterioration including intubation Will follow Ambreen Mathew MD [facility] O: [phone] F: [phone] Subjective Date of service: 12/28/20 Principal diagnosis: COVID-19 Interval history: Afebrile, white count improved. Cultures remain negative. On BiPAP Objective - Exam Narrative Exam: General appearance: Alert, on HFNC Eyes: anicteric sclerae, moist conjunctivae; no lid-lag; PERRLA HENT: Normocephalic, Atraumatic; normal external ears, nares open, oropharynx limited Neck: supple, tracheal midline, no JVD Lungs: Bilateral scattered crackles CV: Tachycardic Abdomen: Soft, non-tender obese Extremities: no edema, no cyanosis Skin: No rash. Psych: Anxious Neuro: alert and oriented x 3. Moving all extermities - Constitutional Vitals: Vital Signs Temp Pulse Resp BP Pulse Ox 98.2 F 101 H 26 H 172/43 98 12/28/20 12:00 12/28/20 15:01 12/28/20 15:01 12/28/20 15:01 12/28/20 15:01 Temperature -Last 24 Hours Temperature 98.2 F Temperature 98.6 F Temperature 97.6 F Temperature 97.8 F - Labs CBC & Chem 7: 12/27/20 04:25 12/28/20 04:41 Labs: Abnormal lab results 12/27/20 12/27/20 12/27/20 Range/Units 17:28 21:43 21:53 Carbon Dioxide (22-30) mmol/L BUN (7-17) mg/dL Glucose (65-100) mg/dL POC Glucose 490 H 503 H 438 H (70-105) mg/dL 12/28/20 12/28/20 12/28/20 Range/Units 04:41 07:58 11:40 Carbon Dioxide 31 H (22-30) mmol/L BUN 35 H (7-17) mg/dL Glucose 328 H (65-100) mg/dL POC Glucose 321 H 455 H (70-105) mg/dL
[2020-12-28 16:39] LABS: C-Reactive Protein 1.1 mg/dL (0.00-1.30)
[2020-12-28] MEDS: guaiFENesin 100 MG/5 ML ORAL LIQD PO PRN (23:06)
[2020-12-28] MEDS: ENOXAPARIN 40 MG/0.4 ML INJ SUB-Q SCH (23:07)
--- NOTE | 2020-12-29 01:59 | Cat Scan Report ---
CTA CHEST WITH IV CONTRAST INDICATION: Elevated D-dimer / COVID-19 / resp failure. TECHNIQUE: Axial CT images were obtained through the chest after injection of 100 cc Omnipaque 350 IV contrast. 3 plane MIP reconstructions were produced. All CT scans at this location are performed using CT dose reduction for ALARA by means of automated exposure control. COMPARISON: One view of the chest from 12/20/2020. FINDINGS: PULMONARY ARTERIES: No pulmonary emboli. AORTA AND ARTERIES: No acute abnormality. The aorta is normal in caliber. No significant atherosclero sis. HEART: No significant abnormality. MEDIASTINUM: No mass or lymphadenopathy. The trachea and main bronchi are patent and normal in calibe r. LUNGS: Extensive bilateral airspace opacities are present without a suspicious nodule or mass. Modera te emphysema is seen predominantly along the upper lobes. No pneumothorax or pleural effusion. ADDITIONAL FINDINGS: None. UPPER ABDOMEN: No acute abnormality. There is cholelithiasis without evidence of acute cholecystitis. BONES: No acute abnormality. Mild degenerative changes of the spine are noted. IMPRESSION: 1. No CT evidence for pulmonary embolism. 2. Bilateral airspace disease, consistent with pneumonia or ARDS. Signer Name: Jerome Ceballos MD Signed: 12/29/2020 1:55 AM Workstation Name: [id number]
[2020-12-29] MEDS: methylPREDNISolone Sod Succinate 125 MG/2 ML INJ IV SCH ×3 (05:26→23:14)
[2020-12-29 05:52] LABS: BUN/Creatinine Ratio 38; Blood Urea Nitrogen 34 mg/dL (7-17); Calcium 8.8 mg/dL (8.4-10.2); Hemolysis Index 49
--- NOTE | 2020-12-29 08:29 | Progress Note ---
Assessment and Plan Assessment and plan: --Elevated D-dimers; due to COVID-19 Worsening D-dimers in 4000s CTA chest negative for PE lower extremity venous Doppler negative for DVT --Sepsis due to COVID-19 pneumonia Procalcitonin low, no need for antibiotics --Severe, COVID-19 infection; Completed remdesivir Received Tocilizumab Continue IV steroids Monitor inflammatory markers Prone positioning as tolerated Home oxygen evaluation prior to discharge Follow ID and pulmonary recommendations Guarded prognosis --Acute hypoxic respiratory failure; Requiring BiPAP, full mask Wean as tolerated, Prone positioning Pulmonary and ID following --Diabetes mellitus type 2; uncontrolled,A1c 10.3 Moderate control, Accu-Chek sliding scale coverage ADA diet and long-acting insulin Diabetic education, diabetic diet education when patient is more stable --Morbid obesity; BMI 46.2 Patient needs weight reduction when medically stable Patient needs outpatient pulmonary evaluation for sleep study to evaluate for JERMAINE Continue BiPAP --Elevated LFTs probably Covid related; Present on admission, resolved today --DVT prophylaxis; Lovenox Closely monitor the patient and adjust the management as needed Building Services Technician recommendations noted and appreciated Current care time 33 minutes 12/21/2020. Follow-up COVID-19 testing. Continue to trend inflammatory markers. Continue dexamethasone. ID and pulmonary consultation pending. Patient currently with 6 L/min O2 FiO2 44%. 12/22/2020. COVID-19 testing found to be positive. Continue to trend infla mmatory markers. Continue dexamethasone. Patient requiring more oxygen with high flow nasal cannula 30 L/min and FiO2 100%. ID and pulmonary following. 12/23/2020. Patient with increasing oxygen requirements with high flow nasal cannula 40 L/min with FiO2 100%. Continue dexamethasone per ID recommendations. We will transfer to IMCU for closer monitoring. 12/24/2020. Patient was transferred to IMCU for closer monitoring yesterday. Patient currently requiring BiPAP with IPAP 16 and EPAP of 8 with FiO2 100%. Continue dexamethasone and remdesivir. Continue to trend inflammatory markers. Continue anticoagulation. Prone position as possible. Continue ceftriaxone and azithromycin per ID recommendations. 12/25/2020. Patient currently requiring BiPAP with IPAP 16 and EPAP of 8 with Fi O2 100%. Continue IV steroids of Solu-Medrol 60 mg every 8 hour and remdesivir. Continue to trend inflammatory markers. Continue anticoagulation with Lovenox. Prone position as possible. Continue ceftriaxone and azithromycin per ID recommendations. Prognosis is guarded. 12/26/2020 BG not controlled with glipizide. Start Lantus at bedtime for BG control. Elevated BG likely secondary to IV steroid. Patient currently requiring BiPAP with IPAP 18 and EPAP of 10 with FiO2 100%. Continue IV steroids of Solu-Medrol 60 mg every 8 hour and remdesivir. Continue to trend inflammatory markers. Continue anticoagulation with Lovenox. Prone position as possible. Continue ceftriaxone and azithromycin per ID recommendations. Prognosis is guarded. 12/27/2020. Blood glucose is improved but not optimal. Therefore, increase Lantus to 14 units at bedtime. Elevated BG likely secondary to IV steroid. Patient currently requiring BiPAP with IPAP 18 and EPAP of 10 with FiO2 100%. Continue IV steroids of Solu-Medrol 60 mg every 8 hour and remdesivir. Continue to trend inflammatory markers. Continue anticoagulation with Lovenox. Prone position as possible. Continue ceftriaxone and azithromycin per ID recommendations. Prognosis is guarded. 12/28/2020; patient's blood sugars are uncontrolled, secondary to noncompliance, partly due to high-dose steroids Darshana hypoxic on continuous BiPAP Will DC Lantus[patient does not have resources] had 70/30 Novolin 20 units twice a day adjust as needed Patient's A1c 10.3, diabetic education nutrition education 12/29/2020; patient continues to be hypoxemic requiring continuous BiPAP Worsening D-dimers, CTA negative for PE, venous Doppler negative DVT History Interval history: Seen and examined the patient at the bedside and IMCU Strict isolation precautions and PT protocols observed per COVID-19 guidelines Throughout my evaluation of the patient at the bedside in her room Patient is on continuous BiPAP mild distress Restraint for safety and to prevent agitation Vital signs noted Hospitalist Physical - Constitutional Vitals: Temp Pulse Resp BP Pulse Ox 98.3 F 78 28 H 126/75 90 12/29/20 07:27 12/29/20 06:00 12/29/20 06:00 12/29/20 06:00 12/29/20 06:00 General appearance: Present: mild distress, well-nourished, obese, other (On BiPAP) - EENT Eyes: Present: PERRL, EOM intact - Neck Neck: Present: supple, normal ROM - Respiratory Respiratory effort: normal Respiratory: bilateral: diminished, negative: rales, rhonchi, wheezing - Cardiovascular Rhythm: regular Heart Sounds: Present: S1 & S2 - Extremities Extremities: no ischemia, No edema - Abdominal General gastrointestinal: soft, non-tender, non-distended, normal bowel sounds - Integumentary Integumentary: Present: clear, warm - Psychiatric Psychiatric: appropriate mood/affect, cooperative - Neurologic Neurologic: CNII-XII intact, moves all extremities HEART Score - HEART Score Troponin: Troponin T < 0.010 ng/mL (0.00-0.029) 12/20/20 19:27 Results - Labs CBC & Chem 7: 12/27/20 04:25 12/29/20 05:12 Labs: Laboratory Last Values WBC 7.5 K/mm3 (4.5-11.0) 12/27/20 04:25 RBC 4.05 M/mm3 (3.65-5.03) 12/27/20 04:25 Hgb 13.1 gm/dl (10.1-14.3) 12/27/20 04:25 Hct 38.8 % (30.3-42.9) D 12/27/20 04:25 MCV 96 fl (79-97) 12/27/20 04:25 MCH 32 pg (28-32) 12/27/20 04:25 MCHC 34 % (30-34) 12/27/20 04:25 RDW 13.7 % (13.2-15.2) 12/27/20 04:25 Plt Count 230 K/mm3 (140-440) 12/27/20 04:25 Lymph % (Auto) 6.4 % (13.4-35.0) L 12/27/20 04:25 [place] % (Auto) 7.5 % (0.0-7.3) H 12/27/20 04:25 Eos % (Auto) 0.0 % (0.0-4.3) 12/27/20 04:25 Baso % (Auto) 0.2 % (0.0-1.8) 12/27/20 04:25 Lymph # (Auto) 0.5 K/mm3 (1.2-5.4) L 12/27/20 04:25 [place] # (Auto) 0.6 K/mm3 (0.0-0.8) 12/27/20 04:25 Eos # (Auto) 0.0 K/mm3 (0.0-0.4) 12/27/20 04:25 Baso # (Auto) 0.0 K/mm3 (0.0-0.1) 12/27/20 04:25 Add Manual Diff Complete 12/23/20 14:09 Total Counted 100 12/23/20 14:09 Seg Neutrophils % 85.9 % (40.0-70.0) H 12/27/20 04:25 Seg Neuts % (Manual) 87.0 % (40.0-70.0) H 12/23/20 14:09 Band Neutrophils % 4.0 % 12/23/20 14:09 Lymphocytes % (Manual) 3.0 % (13.4-35.0) L 12/23/20 14:09 Reactive Lymphs % (Man) 1.0 % 12/23/20 14:09 Monocytes % (Manual) 5.0 % (0.0-7.3) 12/23/20 14:09 Nucleated RBC % 1.0 % (0.0-0.9) H 12/23/20 14:09 Seg Neutrophils # 6.4 K/mm3 (1.8-7.7) 12/27/20 04:25 Seg Neutrophils # Man 1.6 K/mm3 (1.8-7.7) L 12/23/20 14:09 Band Neutrophils # 0.1 K/mm3 12/23/20 14:09 Lymphocytes # (Manual) 0.1 K/mm3 (1.2-5.4) L 12/23/20 14:09 Abs React Lymphs (Man) 0.0 K/mm3 12/23/20 14:09 Monocytes # (Manual) 0.1 K/mm3 (0.0-0.8) 12/23/20 14:09 Eosinophils # (Manual) 0.0 K/mm3 (0.0-0.4) 12/23/20 14:09 Basophils # (Manual) 0.0 K/mm3 (0.0-0.1) 12/23/20 14:09 Metamyelocytes # 0.0 K/mm3 12/23/20 14:09 Myelocytes # 0.0 K/mm3 12/23/20 14:09 Promyelocytes # 0.0 K/mm3 12/23/20 14:09 Blast Cells # 0.0 K/mm3 12/23/20 14:09 WBC Morphology Not Reportable 12/23/20 14:09 Hypersegmented Neuts Not Reportable 12/23/20 14:09 Hyposegmented Neuts Not Reportable 12/23/20 14:09 Hypogranular Neuts Not Reportable 12/23/20 14:09 Smudge Cells Not Reportable 12/23/20 14:09 Toxic Granulation Not Reportable 12/23/20 14:09 Toxic Vacuolation Not Reportable 12/23/20 14:09 Dohle Bodies Not Reportable 12/23/20 14:09 Pelger-Huet Anomaly Not Reportable 12/23/20 14:09 Jair Rods Not Reportable 12/23/20 14:09 Platelet Estimate Consistent w auto 12/23/20 14:09 Clumped Platelets Not Reportable 12/23/20 14:09 Plt Clumps, EDTA Not Reportable 12/23/20 14:09 Large Platelets Not Reportable 12/23/20 14:09 Giant Platelets Not Reportable 12/23/20 14:09 Platelet Satelliting Not Reportable 12/23/20 14:09 Plt Morphology Comment Not Reportable 12/23/20 14:09 RBC Morphology Normal 12/23/20 14:09 Dimorphic RBCs Not Reportable 12/23/20 14:09 Polychromasia Not Reportable 12/23/20 14:09 Hypochromasia Not Reportable 12/23/20 14:09 Poikilocytosis Not Reportable 12/23/20 14:09 Anisocytosis Not Reportable 12/23/20 14:09 Microcytosis Not Reportable 12/23/20 14:09 Macrocytosis Not Reportable 12/23/20 14:09 Spherocytes Not Reportable 12/23/20 14:09 Pappenheimer Bodies Not Reportable 12/23/20 14:09 Sickle Cells Not Reportable 12/23/20 14:09 Target Cells Not Reportable 12/23/20 14:09 Tear Drop Cells Not Reportable 12/23/20 14:09 Ovalocytes Not Reportable 12/23/20 14:09 Helmet Cells Not Reportable 12/23/20 14:09 Foote-Juliette Bodies Not Reportable 12/23/20 14:09 Argenta Rings Not Reportable 12/23/20 14:09 Leslie Cells Not Reportable 12/23/20 14:09 Bite Cells Not Reportable 12/23/20 14:09 Crenated Cell Not Reportable 12/23/20 14:09 Elliptocytes Not Reportable 12/23/20 14:09 Acanthocytes (Spur) Not Reportable 12/23/20 14:09 Rouleaux Not Reportable 12/23/20 14:09 Hemoglobin C Crystals Not Reportable 12/23/20 14:09 Schistocytes Not Reportable 12/23/20 14:09 Malaria parasites Not Reportable 12/23/20 14:09 Giorgi Bodies Not Reportable 12/23/20 14:09 Hem Pathologist Commnt No 12/23/20 14:09 PT 13.1 Sec. (12.2-14.9) 12/21/20 05:50 INR 1.01 (0.87-1.13) 12/21/20 05:50 D-Dimer 4626.15 ng/mlDDU (0-234) H 12/28/20 15:43 Sodium 146 mmol/L (137-145) H 12/29/20 05:12 Potassium 4.8 mmol/L (3.6-5.0) 12/29/20 05:12 Chloride 104.8 mmol/L (98-107) 12/29/20 05:12 Carbon Dioxide 32 mmol/L (22-30) H 12/29/20 05:12 Anion Gap 14 mmol/L 12/29/20 05:12 BUN 34 mg/dL (7-17) H 12/29/20 05:12 Creatinine 0.9 mg/dL (0.6-1.2) 12/29/20 05:12 Estimated GFR > 60 ml/min 12/29/20 05:12 BUN/Creatinine Ratio 38 % 12/29/20 05:12 Glucose 126 mg/dL (65-100) H 12/29/20 05:12 POC Glucose 240 mg/dL (70-105) H 12/28/20 21:42 Hemoglobin A1c 10.3 % (4-6) H 12/21/20 05:50 Lactic Acid 1.40 mmol/L (0.7-2.0) 12/21/20 05:50 Calcium 8.8 mg/dL (8.4-10.2) 12/29/20 05:12 Magnesium 1.90 mg/dL (1.7-2.3) 12/26/20 04:29 Ferritin 1030.0 ng/mL (10.0-200.0) H 12/28/20 15:43 Total Bilirubin 0.30 mg/dL (0.1-1.2) 12/27/20 04:25 AST 31 units/L (5-40) 12/27/20 04:25 ALT 28 units/L (7-56) 12/27/20 04:25 Alkaline Phosphatase 242 units/L (35-129) H 12/27/20 04:25 Lactate Dehydrogenase 838 units/L (91-180) H 12/28/20 15:43 Troponin T < 0.010 ng/mL (0.00-0.029) 12/20/20 19:27 C-Reactive Protein 1.10 mg/dL (0.00-1.30) 12/28/20 15:43 Total Protein 7.3 g/dL (6.3-8.2) 12/27/20 04:25 Albumin 2.7 g/dL (3.9-5) L 12/27/20 04:25 Albumin/Globulin Ratio 0.6 % 12/27/20 04:25 Procalcitonin 0.07 ng/mL (<0.15) 12/26/20 11:08 Urine Color Yellow (Yellow) 12/22/20 03:00 Urine Turbidity Clear (Clear) 12/22/20 03:00 Urine pH 5.0 (5.0-7.0) 12/22/20 03:00 Ur Specific [place] 1.019 (1.003-1.030) 12/22/20 03:00 Urine Protein 100 mg/dl mg/dL (Negative) 12/22/20 03:00 Urine Glucose (UA) 50 mg/dL (Negative) 12/22/20 03:00 Urine Ketones Neg mg/dL (Negative) 12/22/20 03:00 Urine Blood Sm (Negative) 12/22/20 03:00 Urine Nitrite Neg (Negative) 12/22/20 03:00 Urine Bilirubin Neg (Negative) 12/22/20 03:00 Urine Urobilinogen 2.0 mg/dL (<2.0) 12/22/20 03:00 Ur Leukocyte Esterase Neg (Negative) 12/22/20 03:00 Urine WBC (Auto) 1.0 /HPF (0.0-6.0) 12/22/20 03:00 Urine RBC (Auto) 1.0 /HPF (0.0-6.0) 12/22/20 03:00 U Epithel Cells (Auto) 3.0 /HPF (0-13.0) 12/22/20 03:00 Urine Bacteria (Auto) 1+ /HPF (Negative) 12/22/20 03:00 Urine Mucus Few /HPF 12/22/20 03:00 Urine Eosinophils None seen (None Seen) 12/22/20 03:00 Urine Creatinine 117.9 mg/dL (0.1-20.0) H 12/22/20 03:00 Urine Sodium 67 mmol/L 12/22/20 03:00 Coronavirus (PCR) Positive (Negative) A 12/21/20 10:28 Hepatitis A IgM Ab Non-reactive (NonReactive) 12/22/20 06:00 Hep Bs Antigen Non-reactive (Negative) 12/22/20 06:00 Hep B Core IgM Ab Non-reactive (NonReactive) 12/22/20 06:00 Hepatitis C Antibody Non-reactive (NonReactive) 12/22/20 06:00 Curtis/IV: Voiding Method Indwelling Catheter Active Medications - Current Medications Current Medications: Generic Name Dose Route Start Last Admin Trade Name Freq PRN Reason Stop Dose Admin Acetaminophen 650 mg 12/20/20 23:15 12/24/20 09:40 Acetaminophen 325 Mg Tab PO 650 mg Q4H PRN Administration Pain MILD(1-3)/Fever >100.5/VARGAS Albuterol 2.5 mg 12/21/20 12:00 Albuterol 2.5 Mg/3 Ml Nebu IH Q4HRT PRN Shortness Of Breath Amlodipine Besylate 10 mg 12/26/20 14:00 12/28/20 09:33 Amlodipine 10 Mg Tab PO 10 mg QDAY TAMEKA Administration Dextrose 50 ml 12/20/20 23:15 Dextrose 50% In Water (25gm) 50 Ml Syringe IV Q30MIN PRN Hypoglycemia Protocol Enoxaparin Sodium 40 mg 12/21/20 22:00 12/28/20 23:07 Enoxaparin 40 Mg/0.4 Ml Inj SUB-Q 40 mg QDAY@2200 TAMEKA Administration Protocol Furosemide 40 mg 12/26/20 14:00 12/28/20 09:34 Furosemide 40 Mg/4 Ml Inj IV 40 mg QDAY TAMEKA Administration Gabapentin 800 mg 12/21/20 22:00 12/28/20 23:06 Gabapentin 400 Mg Cap PO 800 mg BID TAMEKA Administration Glipizide 10 mg 12/21/20 10:00 12/28/20 17:46 Glipizide 10 Mg Tab PO 10 mg BIDDIAB TAMEKA Administration Guaifenesin 200 mg 12/21/20 16:00 12/28/20 23:06 Guaifenesin 100 Mg/5 Ml Oral Liqd PO 200 mg Q4H PRN Administration Cough Dexmedetomidine HCl 400 mcg/ 104 mls @ 6.952 mls/hr 12/28/20 15:00 12/29/20 05:24 Sodium Chloride IV 0.2 mcg/kg/hr TITRATE TAMEKA 6.952 mls/hr Administration Protocol 0.2 MCG/KG/HR Insulin Human Isoph/Insulin Regular 25 unit 12/28/20 09:00 12/28/20 18:58 Insulin Nph/Regular 70/30 Inj SUB-Q 25 unit BIDDIAB TAMEKA Administration Insulin Human Lispro 0 unit 12/21/20 07:30 12/28/20 23:29 Insulin Lispro 100 Unit/Ml SUB-Q 4 unit ACHS TAMEKA Administration Protocol Lorazepam 0.5 mg 12/23/20 20:12 12/27/20 15:31 Lorazepam 2 Mg/Ml Vial IV 0.5 mg Q6H PRN Administration Anxiety Magnesium Hydroxide 30 ml 12/20/20 23:15 Magnesium Hydroxide (Mom) Oral Liqd Udc PO Q4H PRN Constipation Methylprednisolone Sodium Succinate 60 mg 12/23/20 22:00 12/29/20 05:26 Methylprednisolone Sod Succinate 125 Mg/2 Ml Inj IV 60 mg Q8HR TAMEKA Administration Morphine Sulfate 2 mg 12/20/20 23:15 12/25/20 22:10 Morphine 2 Mg/1 Ml Inj IV 2 mg Q4H PRN Administration Pain, Moderate (4-6) Ondansetron HCl 4 mg 12/20/20 23:15 Ondansetron 4 Mg/2 Ml Inj IV Q8H PRN Nausea And Vomiting Oxycodone/Acetaminophen 1 tab 12/21/20 16:00 12/27/20 22:49 Oxycodone /Acetaminophen 5-325mg Tab PO 1 tab Q6H PRN Administration Pain, Moderate (4-6) Sodium Chloride 10 ml 12/21/20 10:00 12/28/20 23:08 Sodium Chloride 0.9% 10 Ml Flush Syringe IV 10 ml BID TAMEKA Administration Sodium Chloride 10 ml 12/20/20 23:15 12/21/20 18:48 Sodium Chloride 0.9% 10 Ml Flush Syringe IV 10 ml PRN PRN Administration LINE FLUSH Sodium Chloride 1 applic 12/22/20 12:00 12/28/20 23:10 [place] Saline Nasal Gel 14.1 Gm NS 1 applic BID TAMEKA Administration Nutrition/Malnutrition Assess - Dietary Evaluation Nutrition/Malnutrition Findings: Nutrition Notes Start: 12/21/20 09:35 Freq: Status: Active Protocol: Document 12/27/20 14:05 CW (Rec: 12/27/20 14:14 CW [id number]) Nutrition Notes Initial or Follow up Reassessment Current Diagnosis Diabetes,Hypertension, Respiratory Failure Other Pertinent Diagnosis pneu, COVID 19(+), SOB, Diabetic Neuropathy Current Diet Cardiac Consistent Carbohydrate Labs/Tests K 5.4 BUN 30 BG 273 Pertinent Medications Humalog Lasix Glipizide Solumedrol Kionex Humulin Height 5 ft 7 in Weight 138.9 kg [place] Body Weight (kg) 61.36 BMI 47.9 Weight Status Morbidly Obese Subjective/Other Information F/U for stable intakes and ONS tolerance. Per RN pt's intake is low, 25%, d/t continous BiPAP. No ONS ordered likely r /t diet order changes. Will order Nepro d/t elevated K. Percent of energy/protein needs met: 25%/26% Burn Absent Trauma Absent GI Symptoms None Current % PO Poor (25-49%) Minimum of two criteria No physical signs of malnutrition #1 Nutrition Diagnosis Inadequate oral intake As Evidenced by Signs and Symptoms consumption of solid foods is diificult d/t need for continuous BiPAP Diagnosis Progress(for reassessment Continues documentation) Is patient on ventilator? No Is Patient Ambulatory and/or Out of Bed Yes REE-([place]-ambulatory/OOB) [ 1757.328 [id number]] Kcal/Kg value to use for calculation 14 Approximate Energy Requirements Using 1945 kcal/Kg Calculation Used for Recommendations Kcal/kg Additional Notes PRO needs: 82-102g (0.8-1g/kg AdBW 102 kg) Fluid needs: 1 mL/kcal or per MD Nutrition Intervention Change Diet Order: Continue current diet as ordered Add Supplement/Snack (indicate name/kcal Nepro BID /protein ) Provides kCal: 850 Provides Protein (gm) 38 Goal #1 Meet at least 75% of energy and protein needs via diet and ONS Anticipated Discharge Needs: Cardiac/Consistent CHO Follow-Up By: 12/29/20 Additional Comments F/U for intakes and ONS tolerance
[2020-12-29] MEDS: INSULIN LISPRO 100 UNIT/ML SUB-Q SCH ×5 (09:28→22:57)
[2020-12-29] MEDS: amLODIPine 10 MG TAB PO SCH (11:00)
[2020-12-29] MEDS: GABAPENTIN 400 MG CAP PO SCH ×2 (11:01→22:36)
[2020-12-29] MEDS: INSULIN NPH/REGULAR 70/30 INJ SUB-Q SCH ×2 (11:03→17:04)
[2020-12-29] MEDS: glipiZIDE 10 MG TAB PO SCH ×2 (11:03→17:04)
[2020-12-29] MEDS: AYR SALINE NASAL GEL 14.1 GM NS SCH ×2 (11:04→22:40)
[2020-12-29] MEDS: FUROSEMIDE 40 MG/4 ML INJ IV SCH (11:04)
--- NOTE | 2020-12-29 13:09 | Progress Note ---
Assessment and Plan 55 y/o female with acute respiratory failure secondary to cOVID 19 with prior history of ILD on a CT in [facility] 12/29/20: Will increase lasix to q6 hour dosing to see if this helps. Prognosis is very very guarded. 12/28/20: Continue steroids and lasix, may need to ask renal about BID dosing for a few days to see if this will help. Prone as tolerated during the day and sleep prone at night. 1. Agree with change in steroids to solumedrol 60q8, will continue for now 2. Agree with daily lasix but goal should be daily net negative state. 3. Prone as tolerated during the day and sleep prone at night 4. Guarded prognosis Subjective Date of service: 12/29/20 Principal diagnosis: COVID-19 Interval history: Now continuously on bipap. Objective Vital Signs - 12hr 12/29/20 12/29/20 12/29/20 01:24 01:36 02:00 Temperature Pulse Rate 74 98 H 75 Pulse Rate [ From Monitor] Respiratory 30 H 22 Rate Blood Pressure 139/82 119/59 O2 Sat by Pulse 99 91 Oximetry 12/29/20 12/29/20 12/29/20 03:00 03:37 04:00 Temperature 97.5 F L Pulse Rate 73 Pulse Rate [ 77 From Monitor] Respiratory 20 22 Rate Blood Pressure 113/68 O2 Sat by Pulse 93 94 Oximetry 12/29/20 12/29/20 12/29/20 04:01 04:29 05:00 Temperature Pulse Rate 77 72 76 Pulse Rate [ From Monitor] Respiratory 22 22 Rate Blood Pressure 128/79 133/73 O2 Sat by Pulse 94 95 Oximetry 12/29/20 12/29/20 12/29/20 06:00 07:00 07:27 Temperature 98.3 F Pulse Rate 78 69 Pulse Rate [ From Monitor] Respiratory 28 H 22 Rate Blood Pressure 126/75 103/59 O2 Sat by Pulse 90 93 Oximetry 12/29/20 12/29/20 12/29/20 08:00 09:01 09:07 Temperature 98.3 F Pulse Rate 68 69 68 Pulse Rate [ 77 From Monitor] Respiratory 21 21 30 H Rate Blood Pressure 118/74 110/71 110/71 O2 Sat by Pulse 95 92 92 Oximetry 12/29/20 12/29/20 12/29/20 10:00 11:01 12:00 Temperature Pulse Rate 67 72 67 Pulse Rate [ 77 From Monitor] Respiratory 22 25 H 16 Rate Blood Pressure 112/66 131/77 121/65 O2 Sat by Pulse 91 96 90 Oximetry Constitutional: no acute distress, alert (obese), other (on BIPAP) Eyes: non-icteric ENT: oropharynx moist Neck: supple Effort: normal Ascultation: Bilateral: clear, diminished breath sounds (anteriorly) Cardiovascular: regular rate and rhythm (no mrg) Gastrointestinal: normoactive bowel sounds, soft, non-tender, non-distended Integumentary: normal Extremities: no cyanosis, no edema, pink and warm Neurologic: normal mental status, non-focal exam Psychiatric: mood appropriate, affect normal CBC and BMP: 12/27/20 04:25 12/29/20 05:12 ABG, PT/INR, D-dimer: PT/INR, D-dimer PT 13.1 Sec. (12.2-14.9) 12/21/20 05:50 INR 1.01 (0.87-1.13) 12/21/20 05:50 D-Dimer 4626.15 ng/mlDDU (0-234) H 12/28/20 15:43 Abnormal lab findings: Abnormal Labs 12/20/20 12/20/20 12/20/20 19:27 19:27 19:27 WBC 2.9 L RBC MCHC Plt Count 116 L Lymph % (Auto) 41.2 H [place] % (Auto) 13.2 H Lymph # (Auto) Seg Neutrophils % Seg Neuts % (Manual) Lymphocytes % (Manual) Nucleated RBC % Seg Neutrophils # 1.3 L Seg Neutrophils # Man Lymphocytes # (Manual) D-Dimer 260.58 H Sodium 135 L Potassium Chloride 96.1 L Carbon Dioxide BUN 23 H Creatinine 1.4 H Glucose 295 H POC Glucose Hemoglobin A1c Calcium 8.3 L Ferritin AST 125 H ALT 96 H Alkaline Phosphatase 323 H Lactate Dehydrogenase C-Reactive Protein Total Protein 8.7 H Albumin 3.7 L Urine Creatinine Coronavirus (PCR) 12/20/20 12/20/20 12/21/20 19:43 19:43 05:50 WBC RBC MCHC Plt Count Lymph % (Auto) [place] % (Auto) Lymph # (Auto) Seg Neutrophils % Seg Neuts % (Manual) Lymphocytes % (Manual) Nucleated RBC % Seg Neutrophils # Seg Neutrophils # Man Lymphocytes # (Manual) D-Dimer Sodium Potassium Chloride Carbon Dioxide BUN Creatinine Glucose 297 H POC Glucose Hemoglobin A1c 10.3 H Calcium Ferritin 1420.0 H AST ALT Alkaline Phosphatase Lactate Dehydrogenase 491 H C-Reactive Protein 5.50 H Total Protein Albumin Urine Creatinine Coronavirus (PCR) 12/21/20 12/21/20 12/21/20 05:50 05:50 08:04 WBC 1.6 L* RBC 3.40 L MCHC Plt Count 104 L Lymph % (Auto) [place] % (Auto) Lymph # (Auto) Seg Neutrophils % Seg Neuts % (Manual) 82.0 H Lymphocytes % (Manual) Nucleated RBC % Seg Neutrophils # Seg Neutrophils # Man 1.3 L Lymphocytes # (Manual) 0.3 L D-Dimer Sodium 132 L Potassium 5.7 H D Chloride 95.7 L Carbon Dioxide BUN 33 H Creatinine 1.7 H Glucose 500 H POC Glucose 483 H Hemoglobin A1c Calcium 7.7 L Ferritin AST ALT Alkaline Phosphatase Lactate Dehydrogenase C-Reactive Protein Total Protein Albumin Urine Creatinine Coronavirus (PCR) 12/21/20 12/21/20 12/21/20 10:28 12:05 16:54 WBC RBC MCHC Plt Count Lymph % (Auto) [place] % (Auto) Lymph # (Auto) Seg Neutrophils % Seg Neuts % (Manual) Lymphocytes % (Manual) Nucleated RBC % Seg Neutrophils # Seg Neutrophils # Man Lymphocytes # (Manual) D-Dimer Sodium Potassium Chloride Carbon Dioxide BUN Creatinine Glucose POC Glucose 482 H 374 H Hemoglobin A1c Calcium Ferritin AST ALT Alkaline Phosphatase Lactate Dehydrogenase C-Reactive Protein Total Protein Albumin Urine Creatinine Coronavirus (PCR) Positive A 12/21/20 12/21/20 12/22/20 18:24 22:12 03:00 WBC RBC MCHC Plt Count Lymph % (Auto) [place] % (Auto) Lymph # (Auto) Seg Neutrophils % Seg Neuts % (Manual) Lymphocytes % (Manual) Nucleated RBC % Seg Neutrophils # Seg Neutrophils # Man Lymphocytes # (Manual) D-Dimer Sodium 131 L Potassium Chloride 95.2 L Carbon Dioxide BUN 37 H Creatinine 1.4 H Glucose 417 H POC Glucose 358 H Hemoglobin A1c Calcium 7.5 L Ferritin AST 82 H ALT 69 H Alkaline Phosphatase 262 H Lactate Dehydrogenase C-Reactive Protein Total Protein Albumin 3.0 L Urine Creatinine 117.9 H Coronavirus (PCR) 12/22/20 12/22/2021 05:29 08:19 11:18 WBC RBC MCHC Plt Count Lymph % (Auto) [place] % (Auto) Lymph # (Auto) Seg Neutrophils % Seg Neuts % (Manual) Lymphocytes % (Manual) Nucleated RBC % Seg Neutrophils # Seg Neutrophils # Man Lymphocytes # (Manual) D-Dimer Sodium Potassium Chloride Carbon Dioxide BUN 34 H Creatinine 1.3 H Glucose 169 H POC Glucose 136 H 132 H Hemoglobin A1c Calcium 7.5 L Ferritin AST 74 H ALT 60 H Alkaline Phosphatase 249 H Lactate Dehydrogenase C-Reactive Protein Total Protein Albumin 3.1 L Urine Creatinine Coronavirus (PCR) 12/22/20 12/22/20 12/22/20 14:18 14:18 16:36 WBC RBC MCHC Plt Count Lymph % (Auto) [place] % (Auto) Lymph # (Auto) Seg Neutrophils % Seg Neuts % (Manual) Lymphocytes % (Manual) Nucleated RBC % Seg Neutrophils # Seg Neutrophils # Man Lymphocytes # (Manual) D-Dimer Sodium Potassium Chloride Carbon Dioxide BUN Creatinine Glucose POC Glucose 440 H Hemoglobin A1c Calcium Ferritin 1295.0 H AST ALT Alkaline Phosphatase Lactate Dehydrogenase 620 H C-Reactive Protein 2.70 H Total Protein Albumin Urine Creatinine Coronavirus (PCR) 12/22/20 12/23/20 12/23/20 21:07 08:09 11:30 WBC RBC MCHC Plt Count Lymph % (Auto) [place] % (Auto) Lymph # (Auto) Seg Neutrophils % Seg Neuts % (Manual) Lymphocytes % (Manual) Nucleated RBC % Seg Neutrophils # Seg Neutrophils # Man Lymphocytes # (Manual) D-Dimer Sodium Potassium Chloride Carbon Dioxide BUN Creatinine Glucose POC Glucose 493 H 156 H 185 H Hemoglobin A1c Calcium Ferritin AST ALT Alkaline Phosphatase Lactate Dehydrogenase C-Reactive Protein Total Protein Albumin Urine Creatinine Coronavirus (PCR) 12/23/20 12/23/20 12/23/20 14:09 14:09 16:26 WBC 1.8 L* RBC 3.45 L MCHC Plt Count 114 L Lymph % (Auto) [place] % (Auto) Lymph # (Auto) Seg Neutrophils % Seg Neuts % (Manual) 87.0 H Lymphocytes % (Manual) 3.0 L Nucleated RBC % 1.0 H Seg Neutrophils # Seg Neutrophils # Man 1.6 L Lymphocytes # (Manual) 0.1 L D-Dimer Sodium Potassium Chloride Carbon Dioxide BUN 19 H Creatinine Glucose 292 H POC Glucose 351 H Hemoglobin A1c Calcium 7.4 L Ferritin AST 71 H ALT Alkaline Phosphatase 264 H Lactate Dehydrogenase C-Reactive Protein Total Protein Albumin 3.0 L Urine Creatinine Coronavirus (PCR) 12/23/20 12/24/20 12/24/20 21:11 08:21 11:58 WBC RBC MCHC Plt Count Lymph % (Auto) [place] % (Auto) Lymph # (Auto) Seg Neutrophils % Seg Neuts % (Manual) Lymphocytes % (Manual) Nucleated RBC % Seg Neutrophils # Seg Neutrophils # Man Lymphocytes # (Manual) D-Dimer Sodium Potassium Chloride Carbon Dioxide BUN Creatinine Glucose POC Glucose 288 H 286 H 277 H Hemoglobin A1c Calcium Ferritin AST ALT Alkaline Phosphatase Lactate Dehydrogenase C-Reactive Protein Total Protein Albumin Urine Creatinine Coronavirus (PCR) 12/24/20 12/24/20 12/24/20 12:29 12:29 16:05 WBC 2.5 L RBC 3.49 L MCHC 35 H Plt Count 132 L Lymph % (Auto) [place] % (Auto) 7.6 H Lymph # (Auto) 0.4 L Seg Neutrophils % 74.7 H Seg Neuts % (Manual) Lymphocytes % (Manual) Nucleated RBC % Seg Neutrophils # Seg Neutrophils # Man Lymphocytes # (Manual) D-Dimer Sodium Potassium Chloride Carbon Dioxide BUN Creatinine Glucose 256 H POC Glucose 282 H Hemoglobin A1c Calcium 7.8 L Ferritin AST 50 H ALT Alkaline Phosphatase 262 H Lactate Dehydrogenase C-Reactive Protein Total Protein Albumin 2.8 L Urine Creatinine Coronavirus (PCR) 12/24/20 12/25/20 12/25/20 22:01 07:58 11:38 WBC RBC MCHC Plt Count Lymph % (Auto) [place] % (Auto) Lymph # (Auto) Seg Neutrophils % Seg Neuts % (Manual) Lymphocytes % (Manual) Nucleated RBC % Seg Neutrophils # Seg Neutrophils # Man Lymphocytes # (Manual) D-Dimer Sodium Potassium Chloride Carbon Dioxide BUN Creatinine Glucose POC Glucose 366 H 278 H 325 H Hemoglobin A1c Calcium Ferritin AST ALT Alkaline Phosphatase Lactate Dehydrogenase C-Reactive Protein Total Protein Albumin Urine Creatinine Coronavirus (PCR) 12/25/20 12/25/20 12/26/20 15:47 21:31 04:29 WBC RBC MCHC Plt Count Lymph % (Auto) [place] % (Auto) Lymph # (Auto) Seg Neutrophils % Seg Neuts % (Manual) Lymphocytes % (Manual) Nucleated RBC % Seg Neutrophils # Seg Neutrophils # Man Lymphocytes # (Manual) D-Dimer Sodium Potassium Chloride Carbon Dioxide BUN 22 H Creatinine Glucose 327 H POC Glucose 316 H 339 H Hemoglobin A1c Calcium 7.9 L Ferritin AST ALT Alkaline Phosphatase Lactate Dehydrogenase C-Reactive Protein Total Protein Albumin Urine Creatinine Coronavirus (PCR) 12/26/20 12/26/20 12/26/20 07:42 11:08 11:08 WBC RBC MCHC Plt Count Lymph % (Auto) [place] % (Auto) Lymph # (Auto) Seg Neutrophils % Seg Neuts % (Manual) Lymphocytes % (Manual) Nucleated RBC % Seg Neutrophils # Seg Neutrophils # Man Lymphocytes # (Manual) D-Dimer 1954.54 H Sodium Potassium Chloride Carbon Dioxide BUN Creatinine Glucose POC Glucose 353 H Hemoglobin A1c Calcium Ferritin 932.1 H AST ALT Alkaline Phosphatase Lactate Dehydrogenase C-Reactive Protein Total Protein Albumin Urine Creatinine Coronavirus (PCR) 12/26/20 12/26/20 12/26/20 11:08 11:57 16:40 WBC RBC MCHC Plt Count Lymph % (Auto) [place] % (Auto) Lymph # (Auto) Seg Neutrophils % Seg Neuts % (Manual) Lymphocytes % (Manual) Nucleated RBC % Seg Neutrophils # Seg Neutrophils # Man Lymphocytes # (Manual) D-Dimer Sodium Potassium Chloride Carbon Dioxide BUN Creatinine Glucose POC Glucose 318 H 352 H Hemoglobin A1c Calcium Ferritin AST ALT Alkaline Phosphatase Lactate Dehydrogenase 698 H C-Reactive Protein 3.70 H Total Protein Albumin Urine Creatinine Coronavirus (PCR) 12/26/20 12/27/20 12/27/20 21:29 04:25 04:25 WBC RBC MCHC Plt Count Lymph % (Auto) 6.4 L [place] % (Auto) 7.5 H Lymph # (Auto) 0.5 L Seg Neutrophils % 85.9 H Seg Neuts % (Manual) Lymphocytes % (Manual) Nucleated RBC % Seg Neutrophils # Seg Neutrophils # Man Lymphocytes # (Manual) D-Dimer Sodium Potassium 5.4 H D Chloride Carbon Dioxide BUN 30 H Creatinine Glucose 273 H POC Glucose 376 H Hemoglobin A1c Calcium 8.1 L Ferritin AST ALT Alkaline Phosphatase 242 H Lactate Dehydrogenase C-Reactive Protein Total Protein Albumin 2.7 L Urine Creatinine Coronavirus (PCR) 12/27/20 12/27/20 12/27/20 08:05 11:39 17:28 WBC RBC MCHC Plt Count Lymph % (Auto) [place] % (Auto) Lymph # (Auto) Seg Neutrophils % Seg Neuts % (Manual) Lymphocytes % (Manual) Nucleated RBC % Seg Neutrophils # Seg Neutrophils # Man Lymphocytes # (Manual) D-Dimer Sodium Potassium Chloride Carbon Dioxide BUN Creatinine Glucose POC Glucose 287 H 359 H 490 H Hemoglobin A1c Calcium Ferritin AST ALT Alkaline Phosphatase Lactate Dehydrogenase C-Reactive Protein Total Protein Albumin Urine Creatinine Coronavirus (PCR) 12/27/20 12/27/20 12/28/20 21:43 21:53 04:41 WBC RBC MCHC Plt Count Lymph % (Auto) [place] % (Auto) Lymph # (Auto) Seg Neutrophils % Seg Neuts % (Manual) Lymphocytes % (Manual) Nucleated RBC % Seg Neutrophils # Seg Neutrophils # Man Lymphocytes # (Manual) D-Dimer Sodium Potassium Chloride Carbon Dioxide 31 H BUN 35 H Creatinine Glucose 328 H POC Glucose 503 H 438 H Hemoglobin A1c Calcium Ferritin AST ALT Alkaline Phosphatase Lactate Dehydrogenase C-Reactive Protein Total Protein Albumin Urine Creatinine Coronavirus (PCR) 12/28/20 12/28/20 12/28/20 07:58 11:40 15:43 WBC RBC MCHC Plt Count Lymph % (Auto) [place] % (Auto) Lymph # (Auto) Seg Neutrophils % Seg Neuts % (Manual) Lymphocytes % (Manual) Nucleated RBC % Seg Neutrophils # Seg Neutrophils # Man Lymphocytes # (Manual) D-Dimer 4626.15 H Sodium Potassium Chloride Carbon Dioxide BUN Creatinine Glucose POC Glucose 321 H 455 H Hemoglobin A1c Calcium Ferritin AST ALT Alkaline Phosphatase Lactate Dehydrogenase C-Reactive Protein Total Protein Albumin Urine Creatinine Coronavirus (PCR) 12/28/20 12/28/20 12/28/20 15:43 15:43 17:10 WBC RBC MCHC Plt Count Lymph % (Auto) [place] % (Auto) Lymph # (Auto) Seg Neutrophils % Seg Neuts % (Manual) Lymphocytes % (Manual) Nucleated RBC % Seg Neutrophils # Seg Neutrophils # Man Lymphocytes # (Manual) D-Dimer Sodium Potassium Chloride Carbon Dioxide BUN Creatinine Glucose POC Glucose 291 H Hemoglobin A1c Calcium Ferritin 1030.0 H AST ALT Alkaline Phosphatase Lactate Dehydrogenase 838 H C-Reactive Protein Total Protein Albumin Urine Creatinine Coronavirus (PCR) 12/28/20 12/29/20 21:42 05:12 WBC RBC MCHC Plt Count Lymph % (Auto) [place] % (Auto) Lymph # (Auto) Seg Neutrophils % Seg Neuts % (Manual) Lymphocytes % (Manual) Nucleated RBC % Seg Neutrophils # Seg Neutrophils # Man Lymphocytes # (Manual) D-Dimer Sodium 146 H Potassium Chloride Carbon Dioxide 32 H BUN 34 H Creatinine Glucose 126 H POC Glucose 240 H Hemoglobin A1c Calcium Ferritin AST ALT Alkaline Phosphatase Lactate Dehydrogenase C-Reactive Protein Total Protein Albumin Urine Creatinine Coronavirus (PCR)
--- NOTE | 2020-12-29 13:27 | Vascular Lab Report ---
DUPLEX DOPPLER LOWER EXTREMITY VEINS, BILATERAL INDICATION / CLINICAL INFORMATION: Hi D-dimer/Covid /resp failure/evaluate DVT. TECHNIQUE: Duplex doppler imaging was performed through the veins of both lower extremities using venous pj waldo and other maneuvers. COMPARISON: None available. FINDINGS: RIGHT COMMON FEMORAL VEIN: Negative. RIGHT FEMORAL VEIN: Negative. RIGHT POPLITEAL VEIN: Negative. RIGHT CALF VEINS: Negative. LEFT COMMON FEMORAL VEIN: Negative. LEFT FEMORAL VEIN: Negative. LEFT POPLITEAL VEIN: Negative. LEFT CALF VEINS: Negative. ADDITIONAL FINDINGS: None. IMPRESSION: 1. No sonographic evidence for DVT in either lower extremity. Signer Name: Houston Garg MD Signed: 12/29/2020 1:23 PM Workstation Name: [id number]
--- NOTE | 2020-12-29 16:02 | Progress Note ---
Assessment and Plan Cultures: Blood culture no growth today SARS-CoV-2 PCR positive Assessment: 55-year-old female with history, diabetes mellitus, morbid obesity, admitted on 12/20/2020 secondary to a week history of cough, generalized malaise, fever, chills, progressive shortness of breath: #Acute sepsis: Likely secondary to severe COVID-19 pneumonia. #Severe COVID-19 pneumonia: Patient with underlying interstitial lung disease per CT report secondary hospital. Inflammatory markers elevated. D-dimer 260. Ferritin 1420. LDH 491. CRP 5.5. Chest x-ray with bilateral patchy infiltrates. Procalcitonin is slightly up in the setting of HOMA. #Acute hypoxemic respiratory failure: Worsening 100% FiO2 high flow nasal cannula and NR mask. #Elevated creatinine: Likely secondary to COVID-19. Improving. #Elevated LFTs: Likely secondary to COVID-19. Improving. #Neutropenia/thrombocytopenia: Likely secondary to COVID-19. Improving Recommendations: -s/p tocilizumab -Completed Remdesivir -Completed ceftriaxone and azithromycin -Continue IV steroids per pulmonary -Monitor inflammatory markers - ferritin, Ddimer, CRP, LDH ordered stat today -Pulmonary on board -Continue anticoagulation per System Protocol -Prone positioning as possible Will follow Ambreen Mathew MD [facility] O: [phone] F: [phone] Subjective Date of service: 12/29/20 Principal diagnosis: COVID-19 Interval history: Afebrile, normal white count. Currently on BiPAP Imaging personally reviewed: Dopplers no evidence of DVT. Objective - Exam Narrative Exam: General appearance: Alert, on HFNC Eyes: anicteric sclerae, moist conjunctivae; no lid-lag; PERRLA HENT: Normocephalic, Atraumatic; normal external ears, nares open, oropharynx limited Neck: supple, tracheal midline, no JVD Lungs: Bilateral scattered crackles CV: Tachycardic Abdomen: Soft, non-tender obese Extremities: no edema, no cyanosis Skin: No rash. Psych: Anxious Neuro: alert and oriented x 3. Moving all extermities - Constitutional Vitals: Vital Signs Temp Pulse Resp BP Pulse Ox 97.8 F 68 20 131/41 93 12/29/20 12:00 12/29/20 14:01 12/29/20 14:01 12/29/20 14:01 12/29/20 14:01 Temperature -Last 24 Hours Temperature 97.8 F Temperature 98.3 F Temperature 98.3 F Temperature 97.5 F Temperature 97.0 F Temperature 97.4 F - Labs CBC & Chem 7: 12/27/20 04:25 12/29/20 05:12 Labs: Abnormal lab results 12/28/20 12/28/20 12/28/20 Range/Units 15:43 15:43 15:43 D-Dimer 4626.15 H (0-234) ng/mlDDU Sodium (137-145) mmol/L Carbon Dioxide (22-30) mmol/L BUN (7-17) mg/dL Glucose (65-100) mg/dL POC Glucose (70-105) mg/dL Ferritin 1030.0 H (10.0-200.0) ng/mL Lactate Dehydrogenase 838 H (91-180) units/L 12/28/20 12/28/20 12/29/20 Range/Units 17:10 21:42 05:12 D-Dimer (0-234) ng/mlDDU Sodium 146 H (137-145) mmol/L Carbon Dioxide 32 H (22-30) mmol/L BUN 34 H (7-17) mg/dL Glucose 126 H (65-100) mg/dL POC Glucose 291 H 240 H (70-105) mg/dL Ferritin (10.0-200.0) ng/mL Lactate Dehydrogenase (91-180) units/L
[2020-12-29] MEDS: ENOXAPARIN 40 MG/0.4 ML INJ SUB-Q SCH (22:37)
[2020-12-29] MEDS: guaiFENesin 100 MG/5 ML ORAL LIQD PO PRN (22:37)
[2020-12-30] MEDS: methylPREDNISolone Sod Succinate 125 MG/2 ML INJ IV SCH ×3 (06:55→17:41)
[2020-12-30] MEDS: INSULIN NPH/REGULAR 70/30 INJ SUB-Q SCH ×2 (08:40→17:41)
[2020-12-30] MEDS: glipiZIDE 10 MG TAB PO SCH ×2 (08:40→17:41)
[2020-12-30] MEDS: INSULIN LISPRO 100 UNIT/ML SUB-Q SCH ×3 (08:40→17:20)
[2020-12-30] MEDS: amLODIPine 10 MG TAB PO SCH (09:04)
[2020-12-30] MEDS: FUROSEMIDE 40 MG/4 ML INJ IV SCH (09:05)
[2020-12-30] MEDS: AYR SALINE NASAL GEL 14.1 GM NS SCH ×2 (09:05→21:53)
[2020-12-30] MEDS: GABAPENTIN 400 MG CAP PO SCH ×2 (09:05→21:53)
--- NOTE | 2020-12-30 13:53 | Progress Note ---
Assessment and Plan 55 y/o female with acute respiratory failure secondary to cOVID 19 with prior history of ILD on a CT in [facility] 12/30/20: Continue steroids at 60q6. Continue daily lasix. may need to consider BID dosing to help with more volume removal if renal function will permit. Overall prognosis is very very guarded to poor, especially if the patient ends up on the mechanical ventilator. 12/29/20: Will increase steroids to q6 hour dosing to see if this helps. Prognosis is very very guarded. 12/28/20: Continue steroids and lasix, may need to ask renal about BID dosing for a few days to see if this will help. Prone as tolerated during the day and sleep prone at night. 1. Agree with change in steroids to solumedrol 60q8, will continue for now 2. Agree with daily lasix but goal should be daily net negative state. 3. Prone as tolerated during the day and sleep prone at night 4. Guarded prognosis Subjective Date of service: 12/30/20 Principal diagnosis: COVID-19 Interval history: Remains on HFNC with sats in the low 90's. Was negative almost 1 liter yesterday. Objective Vital Signs - 12hr 12/29/20 12/29/20 12/30/20 23:00 23:29 00:00 Temperature 97.4 F L Pulse Rate 72 67 Pulse Rate [ From Monitor] Respiratory 27 H Rate Blood Pressure 127/80 O2 Sat by Pulse 98 Oximetry 12/30/20 12/30/20 12/30/20 00:01 01:00 02:00 Temperature Pulse Rate 68 73 72 Pulse Rate [ From Monitor] Respiratory 20 23 23 Rate Blood Pressure 127/80 140/97 131/95 O2 Sat by Pulse 97 95 99 Oximetry 12/30/20 12/30/20 12/30/20 02:13 03:00 04:00 Temperature 97.5 F L Pulse Rate 76 74 63 Pulse Rate [ 63 From Monitor] Respiratory 24 24 18 Rate Blood Pressure 127/93 119/90 118/84 O2 Sat by Pulse 96 97 98 Oximetry 12/30/20 12/30/20 12/30/20 04:05 05:00 06:00 Temperature Pulse Rate 64 64 65 Pulse Rate [ From Monitor] Respiratory 18 19 Rate Blood Pressure 113/85 135/78 O2 Sat by Pulse 95 96 Oximetry 12/30/20 12/30/20 12/30/20 07:00 08:00 08:01 Temperature 97.9 F Pulse Rate 70 72 62 Pulse Rate [ From Monitor] Respiratory 19 20 Rate Blood Pressure 129/91 118/82 O2 Sat by Pulse 98 98 97 Oximetry 12/30/20 12/30/20 12/30/20 08:52 08:55 09:01 Temperature Pulse Rate 65 75 Pulse Rate [ From Monitor] Respiratory 28 H 29 H Rate Blood Pressure 114/82 145/100 O2 Sat by Pulse 96 96 91 Oximetry 12/30/20 12/30/20 09:04 10:00 Temperature Pulse Rate 75 82 Pulse Rate [ From Monitor] Respiratory 37 H Rate Blood Pressure 145/100 135/104 O2 Sat by Pulse 98 Oximetry Constitutional: no acute distress, alert (obese), other (on BIPAP) Eyes: non-icteric ENT: oropharynx moist Neck: supple Effort: normal Ascultation: Bilateral: clear, diminished breath sounds (anteriorly) Cardiovascular: regular rate and rhythm (no mrg) Gastrointestinal: normoactive bowel sounds, soft, non-tender, non-distended Integumentary: normal Extremities: no cyanosis, no edema, pink and warm Neurologic: normal mental status, non-focal exam Psychiatric: mood appropriate, affect normal CBC and BMP: 12/27/20 04:25 12/29/20 05:12 ABG, PT/INR, D-dimer: PT/INR, D-dimer PT 13.1 Sec. (12.2-14.9) 12/21/20 05:50 INR 1.01 (0.87-1.13) 12/21/20 05:50 D-Dimer 4626.15 ng/mlDDU (0-234) H 12/28/20 15:43 Abnormal lab findings: Abnormal Labs 12/20/20 12/20/20 12/20/20 19:27 19:27 19:27 WBC 2.9 L RBC MCHC Plt Count 116 L Lymph % (Auto) 41.2 H [place] % (Auto) 13.2 H Lymph # (Auto) Seg Neutrophils % Seg Neuts % (Manual) Lymphocytes % (Manual) Nucleated RBC % Seg Neutrophils # 1.3 L Seg Neutrophils # Man Lymphocytes # (Manual) D-Dimer 260.58 H Sodium 135 L Potassium Chloride 96.1 L Carbon Dioxide BUN 23 H Creatinine 1.4 H Glucose 295 H POC Glucose Hemoglobin A1c Calcium 8.3 L Ferritin AST 125 H ALT 96 H Alkaline Phosphatase 323 H Lactate Dehydrogenase C-Reactive Protein Total Protein 8.7 H Albumin 3.7 L Urine Creatinine Coronavirus (PCR) 12/20/20 12/20/20 12/21/20 19:43 19:43 05:50 WBC RBC MCHC Plt Count Lymph % (Auto) [place] % (Auto) Lymph # (Auto) Seg Neutrophils % Seg Neuts % (Manual) Lymphocytes % (Manual) Nucleated RBC % Seg Neutrophils # Seg Neutrophils # Man Lymphocytes # (Manual) D-Dimer Sodium Potassium Chloride Carbon Dioxide BUN Creatinine Glucose 297 H POC Glucose Hemoglobin A1c 10.3 H Calcium Ferritin 1420.0 H AST ALT Alkaline Phosphatase Lactate Dehydrogenase 491 H C-Reactive Protein 5.50 H Total Protein Albumin Urine Creatinine Coronavirus (PCR) 12/21/20 12/21/20 12/21/20 05:50 05:50 08:04 WBC 1.6 L* RBC 3.40 L MCHC Plt Count 104 L Lymph % (Auto) [place] % (Auto) Lymph # (Auto) Seg Neutrophils % Seg Neuts % (Manual) 82.0 H Lymphocytes % (Manual) Nucleated RBC % Seg Neutrophils # Seg Neutrophils # Man 1.3 L Lymphocytes # (Manual) 0.3 L D-Dimer Sodium 132 L Potassium 5.7 H D Chloride 95.7 L Carbon Dioxide BUN 33 H Creatinine 1.7 H Glucose 500 H POC Glucose 483 H Hemoglobin A1c Calcium 7.7 L Ferritin AST ALT Alkaline Phosphatase Lactate Dehydrogenase C-Reactive Protein Total Protein Albumin Urine Creatinine Coronavirus (PCR) 12/21/20 12/21/20 12/21/20 10:28 12:05 16:54 WBC RBC MCHC Plt Count Lymph % (Auto) [place] % (Auto) Lymph # (Auto) Seg Neutrophils % Seg Neuts % (Manual) Lymphocytes % (Manual) Nucleated RBC % Seg Neutrophils # Seg Neutrophils # Man Lymphocytes # (Manual) D-Dimer Sodium Potassium Chloride Carbon Dioxide BUN Creatinine Glucose POC Glucose 482 H 374 H Hemoglobin A1c Calcium Ferritin AST ALT Alkaline Phosphatase Lactate Dehydrogenase C-Reactive Protein Total Protein Albumin Urine Creatinine Coronavirus (PCR) Positive A 12/21/20 12/21/20 12/22/20 18:24 22:12 03:00 WBC RBC MCHC Plt Count Lymph % (Auto) [place] % (Auto) Lymph # (Auto) Seg Neutrophils % Seg Neuts % (Manual) Lymphocytes % (Manual) Nucleated RBC % Seg Neutrophils # Seg Neutrophils # Man Lymphocytes # (Manual) D-Dimer Sodium 131 L Potassium Chloride 95.2 L Carbon Dioxide BUN 37 H Creatinine 1.4 H Glucose 417 H POC Glucose 358 H Hemoglobin A1c Calcium 7.5 L Ferritin AST 82 H ALT 69 H Alkaline Phosphatase 262 H Lactate Dehydrogenase C-Reactive Protein Total Protein Albumin 3.0 L Urine Creatinine 117.9 H Coronavirus (PCR) 12/22/20 12/22/20 12/22/20 05:29 08:19 11:18 WBC RBC MCHC Plt Count Lymph % (Auto) [place] % (Auto) Lymph # (Auto) Seg Neutrophils % Seg Neuts % (Manual) Lymphocytes % (Manual) Nucleated RBC % Seg Neutrophils # Seg Neutrophils # Man Lymphocytes # (Manual) D-Dimer Sodium Potassium Chloride Carbon Dioxide BUN 34 H Creatinine 1.3 H Glucose 169 H POC Glucose 136 H 132 H Hemoglobin A1c Calcium 7.5 L Ferritin AST 74 H ALT 60 H Alkaline Phosphatase 249 H Lactate Dehydrogenase C-Reactive Protein Total Protein Albumin 3.1 L Urine Creatinine Coronavirus (PCR) 12/22/20 12/22/20 12/22/20 14:18 14:18 16:36 WBC RBC MCHC Plt Count Lymph % (Auto) [place] % (Auto) Lymph # (Auto) Seg Neutrophils % Seg Neuts % (Manual) Lymphocytes % (Manual) Nucleated RBC % Seg Neutrophils # Seg Neutrophils # Man Lymphocytes # (Manual) D-Dimer Sodium Potassium Chloride Carbon Dioxide BUN Creatinine Glucose POC Glucose 440 H Hemoglobin A1c Calcium Ferritin 1295.0 H AST ALT Alkaline Phosphatase Lactate Dehydrogenase 620 H C-Reactive Protein 2.70 H Total Protein Albumin Urine Creatinine Coronavirus (PCR) 12/22/20 12/23/20 12/23/20 21:07 08:09 11:30 WBC RBC MCHC Plt Count Lymph % (Auto) [place] % (Auto) Lymph # (Auto) Seg Neutrophils % Seg Neuts % (Manual) Lymphocytes % (Manual) Nucleated RBC % Seg Neutrophils # Seg Neutrophils # Man Lymphocytes # (Manual) D-Dimer Sodium Potassium Chloride Carbon Dioxide BUN Creatinine Glucose POC Glucose 493 H 156 H 185 H Hemoglobin A1c Calcium Ferritin AST ALT Alkaline Phosphatase Lactate Dehydrogenase C-Reactive Protein Total Protein Albumin Urine Creatinine Coronavirus (PCR) 12/23/20 12/23/20 12/23/20 14:09 14:09 16:26 WBC 1.8 L* RBC 3.45 L MCHC Plt Count 114 L Lymph % (Auto) [place] % (Auto) Lymph # (Auto) Seg Neutrophils % Seg Neuts % (Manual) 87.0 H Lymphocytes % (Manual) 3.0 L Nucleated RBC % 1.0 H Seg Neutrophils # Seg Neutrophils # Man 1.6 L Lymphocytes # (Manual) 0.1 L D-Dimer Sodium Potassium Chloride Carbon Dioxide BUN 19 H Creatinine Glucose 292 H POC Glucose 351 H Hemoglobin A1c Calcium 7.4 L Ferritin AST 71 H ALT Alkaline Phosphatase 264 H Lactate Dehydrogenase C-Reactive Protein Total Protein Albumin 3.0 L Urine Creatinine Coronavirus (PCR) 12/23/20 12/24/20 12/24/20 21:11 08:21 11:58 WBC RBC MCHC Plt Count Lymph % (Auto) [place] % (Auto) Lymph # (Auto) Seg Neutrophils % Seg Neuts % (Manual) Lymphocytes % (Manual) Nucleated RBC % Seg Neutrophils # Seg Neutrophils # Man Lymphocytes # (Manual) D-Dimer Sodium Potassium Chloride Carbon Dioxide BUN Creatinine Glucose POC Glucose 288 H 286 H 277 H Hemoglobin A1c Calcium Ferritin AST ALT Alkaline Phosphatase Lactate Dehydrogenase C-Reactive Protein Total Protein Albumin Urine Creatinine Coronavirus (PCR) 12/24/20 12/24/20 12/24/20 12:29 12:29 16:05 WBC 2.5 L RBC 3.49 L MCHC 35 H Plt Count 132 L Lymph % (Auto) [place] % (Auto) 7.6 H Lymph # (Auto) 0.4 L Seg Neutrophils % 74.7 H Seg Neuts % (Manual) Lymphocytes % (Manual) Nucleated RBC % Seg Neutrophils # Seg Neutrophils # Man Lymphocytes # (Manual) D-Dimer Sodium Potassium Chloride Carbon Dioxide BUN Creatinine Glucose 256 H POC Glucose 282 H Hemoglobin A1c Calcium 7.8 L Ferritin AST 50 H ALT Alkaline Phosphatase 262 H Lactate Dehydrogenase C-Reactive Protein Total Protein Albumin 2.8 L Urine Creatinine Coronavirus (PCR) 12/24/20 12/25/20 12/25/20 22:01 07:58 11:38 WBC RBC MCHC Plt Count Lymph % (Auto) [place] % (Auto) Lymph # (Auto) Seg Neutrophils % Seg Neuts % (Manual) Lymphocytes % (Manual) Nucleated RBC % Seg Neutrophils # Seg Neutrophils # Man Lymphocytes # (Manual) D-Dimer Sodium Potassium Chloride Carbon Dioxide BUN Creatinine Glucose POC Glucose 366 H 278 H 325 H Hemoglobin A1c Calcium Ferritin AST ALT Alkaline Phosphatase Lactate Dehydrogenase C-Reactive Protein Total Protein Albumin Urine Creatinine Coronavirus (PCR) 12/25/20 12/25/20 12/26/20 15:47 21:31 04:29 WBC RBC MCHC Plt Count Lymph % (Auto) [place] % (Auto) Lymph # (Auto) Seg Neutrophils % Seg Neuts % (Manual) Lymphocytes % (Manual) Nucleated RBC % Seg Neutrophils # Seg Neutrophils # Man Lymphocytes # (Manual) D-Dimer Sodium Potassium Chloride Carbon Dioxide BUN 22 H Creatinine Glucose 327 H POC Glucose 316 H 339 H Hemoglobin A1c Calcium 7.9 L Ferritin AST ALT Alkaline Phosphatase Lactate Dehydrogenase C-Reactive Protein Total Protein Albumin Urine Creatinine Coronavirus (PCR) 12/26/20 12/26/20 12/26/20 07:42 11:08 11:08 WBC RBC MCHC Plt Count Lymph % (Auto) [place] % (Auto) Lymph # (Auto) Seg Neutrophils % Seg Neuts % (Manual) Lymphocytes % (Manual) Nucleated RBC % Seg Neutrophils # Seg Neutrophils # Man Lymphocytes # (Manual) D-Dimer 1954.54 H Sodium Potassium Chloride Carbon Dioxide BUN Creatinine Glucose POC Glucose 353 H Hemoglobin A1c Calcium Ferritin 932.1 H AST ALT Alkaline Phosphatase Lactate Dehydrogenase C-Reactive Protein Total Protein Albumin Urine Creatinine Coronavirus (PCR) 12/26/20 12/26/20 12/26/20 11:08 11:57 16:40 WBC RBC MCHC Plt Count Lymph % (Auto) [place] % (Auto) Lymph # (Auto) Seg Neutrophils % Seg Neuts % (Manual) Lymphocytes % (Manual) Nucleated RBC % Seg Neutrophils # Seg Neutrophils # Man Lymphocytes # (Manual) D-Dimer Sodium Potassium Chloride Carbon Dioxide BUN Creatinine Glucose POC Glucose 318 H 352 H Hemoglobin A1c Calcium Ferritin AST ALT Alkaline Phosphatase Lactate Dehydrogenase 698 H C-Reactive Protein 3.70 H Total Protein Albumin Urine Creatinine Coronavirus (PCR) 12/26/20 12/27/20 12/27/20 21:29 04:25 04:25 WBC RBC MCHC Plt Count Lymph % (Auto) 6.4 L [place] % (Auto) 7.5 H Lymph # (Auto) 0.5 L Seg Neutrophils % 85.9 H Seg Neuts % (Manual) Lymphocytes % (Manual) Nucleated RBC % Seg Neutrophils # Seg Neutrophils # Man Lymphocytes # (Manual) D-Dimer Sodium Potassium 5.4 H D Chloride Carbon Dioxide BUN 30 H Creatinine Glucose 273 H POC Glucose 376 H Hemoglobin A1c Calcium 8.1 L Ferritin AST ALT Alkaline Phosphatase 242 H Lactate Dehydrogenase C-Reactive Protein Total Protein Albumin 2.7 L Urine Creatinine Coronavirus (PCR) 12/27/20 12/27/20 12/27/20 08:05 11:39 17:28 WBC RBC MCHC Plt Count Lymph % (Auto) [place] % (Auto) Lymph # (Auto) Seg Neutrophils % Seg Neuts % (Manual) Lymphocytes % (Manual) Nucleated RBC % Seg Neutrophils # Seg Neutrophils # Man Lymphocytes # (Manual) D-Dimer Sodium Potassium Chloride Carbon Dioxide BUN Creatinine Glucose POC Glucose 287 H 359 H 490 H Hemoglobin A1c Calcium Ferritin AST ALT Alkaline Phosphatase Lactate Dehydrogenase C-Reactive Protein Total Protein Albumin Urine Creatinine Coronavirus (PCR) 12/27/20 12/27/20 12/28/20 21:43 21:53 04:41 WBC RBC MCHC Plt Count Lymph % (Auto) [place] % (Auto) Lymph # (Auto) Seg Neutrophils % Seg Neuts % (Manual) Lymphocytes % (Manual) Nucleated RBC % Seg Neutrophils # Seg Neutrophils # Man Lymphocytes # (Manual) D-Dimer Sodium Potassium Chloride Carbon Dioxide 31 H BUN 35 H Creatinine Glucose 328 H POC Glucose 503 H 438 H Hemoglobin A1c Calcium Ferritin AST ALT Alkaline Phosphatase Lactate Dehydrogenase C-Reactive Protein Total Protein Albumin Urine Creatinine Coronavirus (PCR) 12/28/20 12/28/20 12/28/20 07:58 11:40 15:43 WBC RBC MCHC Plt Count Lymph % (Auto) [place] % (Auto) Lymph # (Auto) Seg Neutrophils % Seg Neuts % (Manual) Lymphocytes % (Manual) Nucleated RBC % Seg Neutrophils # Seg Neutrophils # Man Lymphocytes # (Manual) D-Dimer 4626.15 H Sodium Potassium Chloride Carbon Dioxide BUN Creatinine Glucose POC Glucose 321 H 455 H Hemoglobin A1c Calcium Ferritin AST ALT Alkaline Phosphatase Lactate Dehydrogenase C-Reactive Protein Total Protein Albumin Urine Creatinine Coronavirus (PCR) 12/28/20 12/28/20 12/28/20 15:43 15:43 17:10 WBC RBC MCHC Plt Count Lymph % (Auto) [place] % (Auto) Lymph # (Auto) Seg Neutrophils % Seg Neuts % (Manual) Lymphocytes % (Manual) Nucleated RBC % Seg Neutrophils # Seg Neutrophils # Man Lymphocytes # (Manual) D-Dimer Sodium Potassium Chloride Carbon Dioxide BUN Creatinine Glucose POC Glucose 291 H Hemoglobin A1c Calcium Ferritin 1030.0 H AST ALT Alkaline Phosphatase Lactate Dehydrogenase 838 H C-Reactive Protein Total Protein Albumin Urine Creatinine Coronavirus (PCR) 12/28/20 12/29/20 12/29/20 21:42 05:12 08:25 WBC RBC MCHC Plt Count Lymph % (Auto) [place] % (Auto) Lymph # (Auto) Seg Neutrophils % Seg Neuts % (Manual) Lymphocytes % (Manual) Nucleated RBC % Seg Neutrophils # Seg Neutrophils # Man Lymphocytes # (Manual) D-Dimer Sodium 146 H Potassium Chloride Carbon Dioxide 32 H BUN 34 H Creatinine Glucose 126 H POC Glucose 240 H 176 H Hemoglobin A1c Calcium Ferritin AST ALT Alkaline Phosphatase Lactate Dehydrogenase C-Reactive Protein Total Protein Albumin Urine Creatinine Coronavirus (PCR) 12/29/20 12/29/20 12/29/20 11:24 16:49 21:39 WBC RBC MCHC Plt Count Lymph % (Auto) [place] % (Auto) Lymph # (Auto) Seg Neutrophils % Seg Neuts % (Manual) Lymphocytes % (Manual) Nucleated RBC % Seg Neutrophils # Seg Neutrophils # Man Lymphocytes # (Manual) D-Dimer Sodium Potassium Chloride Carbon Dioxide BUN Creatinine Glucose POC Glucose 209 H 226 H 169 H Hemoglobin A1c Calcium Ferritin AST ALT Alkaline Phosphatase Lactate Dehydrogenase C-Reactive Protein Total Protein Albumin Urine Creatinine Coronavirus (PCR) 12/30/20 07:34 WBC RBC MCHC Plt Count Lymph % (Auto) [place] % (Auto) Lymph # (Auto) Seg Neutrophils % Seg Neuts % (Manual) Lymphocytes % (Manual) Nucleated RBC % Seg Neutrophils # Seg Neutrophils # Man Lymphocytes # (Manual) D-Dimer Sodium Potassium Chloride Carbon Dioxide BUN Creatinine Glucose POC Glucose 206 H Hemoglobin A1c Calcium Ferritin AST ALT Alkaline Phosphatase Lactate Dehydrogenase C-Reactive Protein Total Protein Albumin Urine Creatinine Coronavirus (PCR)
--- NOTE | 2020-12-30 14:55 | Progress Note ---
Assessment and Plan Assessment and plan: --COVID-19 test positive on 12/21/2020 --Acute hypoxic respiratory failure; Due to severe COVID-19 infection as well as Obesity hypoventilation syndrome Requiring BiPAP, full mask, Wean as tolerated, Prone positioning, pulmonary and ID following --Elevated D-dimers; due to COVID-19 CTA chest negative for PE lower extremity venous Doppler negative for DVT --Sepsis due to COVID-19 pneumonia Procalcitonin low, no need for antibiotics --Severe, COVID-19 infection;Guarded prognosis Completed remdesivir Received Tocilizumab Continue IV steroids Monitor inflammatory markers Prone positioning as tolerated Home oxygen evaluation prior to discharge Follow ID and pulmonary recommendations --Diabetes mellitus type 2; uncontrolled,A1c 10.3 Moderate control, Accu-Chek sliding scale coverage ADA diet and long-acting insulin Diabetic education, diabetic diet education when patient is more stable --Morbid obesity; BMI 46.2 Patient needs weight reduction when medically stable Patient needs outpatient pulmonary evaluation for sleep study to evaluate for JERMAINE Continue BiPAP --OHS/JERMAINE; due to morbid obesity Patient needs outpatient sleep study to rule out JERMAINE CPAP/BiPAP at night and as needed --Elevated LFTs probably Covid related; Present on admission, resolved today --DVT prophylaxis; Lovenox Closely monitor the patient and adjust the management as needed Life Sciences Director recommendations noted and appreciated Plan of care reviewed with the patient and her nurse Patient is critically ill with guarded prognosis Patient and family aware Current care time 33 minutes Brief history and daily patient care; 12/21/2020. Follow-up COVID-19 testing. Continue to trend inflammatory markers. Continue dexamethasone. ID and pulmonary consultation pending. Patient currently with 6 L/min O2 FiO2 44%. 12/22/2020. COVID-19 testing found to be positive. Continue to trend inflammatory markers. Continue dexamethasone. Patient requiring more oxygen with high flow nasal cannula 30 L/min and FiO2 100%. ID and pulmonary following. 12/23/2020. Patient with increasing oxygen requirements with high flow nasal cannula 40 L/min with FiO2 100%. Continue dexamethasone per ID recommendations. We will transfer to [facility] for closer monitoring. 12/24/2020. Patient was transferred to [facility] for closer monitoring yesterday. Patient currently requiring BiPAP with IPAP 16 and EPAP of 8 with FiO2 100%. Continue dexamethasone and remdesivir. Continue to trend inflammatory markers. Continue anticoagulation. Prone position as possible. Continue ceftriaxone and azithromycin per ID recommendations. 12/25/2020. Patient currently requiring BiPAP with IPAP 16 and EPAP of 8 with FiO2 100%. Continue IV steroids of Solu-Medrol 60 mg every 8 hour and remdesivir. Continue to trend inflammatory markers. Continue anticoagulation with Lovenox. Prone position as possible. Continue ceftriaxone and a zithromycin per ID recommendations. Prognosis is guarded. 12/26/2020 BG not controlled with glipizide. Start Lantus at bedtime for BG control. Elevated BG likely secondary to IV steroid. Patient currently requiring BiPAP with IPAP 18 and EPAP of 10 with FiO2 100%. Continue IV steroids of Solu-Medrol 60 mg every 8 hour and remdesivir. Continue to trend inflammatory markers. Continue anticoagulation with Lovenox. Prone position as possible. Continue ceftriaxone and azithromycin per ID recommendations. Prognosis is guarded. 12/27/2020. Blood glucose is improved but not optimal. Therefore, increase Lantus to 14 units at bedtime. Elevated BG likely secondary to IV steroid. Patient currently requiring BiPAP with IPAP 18 and EPAP of 10 with FiO2 100%. Continue IV steroids of Solu-Medrol 60 mg every 8 hour and remdesivir. Continue to trend inflammatory markers. Continue anticoagulation with Lovenox. Prone position as possible. Continue ceftriaxone and azithromycin per ID r ecommendations. Prognosis is guarded. 12/28/2020; patient's blood sugars are uncontrolled, secondary to noncompliance, partly due to high-dose steroids Patient remains hypoxic on continuous BiPAP Switch to 70/30 Novolin 20 units twice a day adjust as needed Patient's A1c 10.3, diabetic education nutrition education 12/29/2020; patient continues to be hypoxemic requiring continuous BiPAP Worsening D-dimers, CTA negative for PE, venous Doppler negative DVT 12/30/2020; patient continues to require continuous BiPAP Wean as tolerated, patient is critically ill with poor prognosis Life Sciences Director recommendations noted and appreciated History Interval history: I have seen and examined the patient at the bedside this morning in [facility]. Isolation precautions and PPE protocols strictly followed per COVID-19 guidelines Morbidly obese -[place] female patient with Covid positive infection And acute hypoxic respiratory failure requiring almost continuous BiPAP Patient is in mild distress Vital signs noted Hospitalist Physical - Constitutional Vitals: Temp Pulse Resp BP Pulse Ox 97.9 F 75 30 H 119/86 95 12/30/20 12:00 12/30/20 13:00 12/30/20 13:00 12/30/20 13:00 12/30/20 13:00 General appearance: Present: mild distress, well-nourished, obese (Morbidly obese), other (On BiPAP) - EENT Eyes: Present: PERRL, EOM intact - Neck Neck: Present: supple, normal ROM - Respiratory Respiratory effort: normal Respiratory: bilateral: diminished, rhonchi, negative: rales, wheezing - Cardiovascular Rhythm: regular Heart Sounds: Present: S1 & S2 - Extremities Extremities: no ischemia, No edema, abnormal (Obese) - Abdominal General gastrointestinal: soft, non-tender, non-distended, normal bowel sounds - Integumentary Integumentary: Present: clear, warm - Psychiatric Psychiatric: appropriate mood/affect - Neurologic Neurologic: moves all extremities HEART Score - HEART Score Troponin: Troponin T < 0.010 ng/mL (0.00-0.029) 12/20/20 19:27 Results - Labs CBC & Chem 7: 12/27/20 04:25 12/29/20 05:12 Labs: Laboratory Last Values WBC 7.5 K/mm3 (4.5-11.0) 12/27/20 04:25 RBC 4.05 M/mm3 (3.65-5.03) 12/27/20 04:25 Hgb 13.1 gm/dl (10.1-14.3) 12/27/20 04:25 Hct 38.8 % (30.3-42.9) D 12/27/20 04:25 MCV 96 fl (79-97) 12/27/20 04:25 MCH 32 pg (28-32) 12/27/20 04:25 MCHC 34 % (30-34) 12/27/20 04:25 RDW 13.7 % (13.2-15.2) 12/27/20 04:25 Plt Count 230 K/mm3 (140-440) 12/27/20 04:25 Lymph % (Auto) 6.4 % (13.4-35.0) L 12/27/20 04:25 [place] % (Auto) 7.5 % (0.0-7.3) H 12/27/20 04:25 Eos % (Auto) 0.0 % (0.0-4.3) 12/27/20 04:25 Baso % (Auto) 0.2 % (0.0-1.8) 12/27/20 04:25 Lymph # (Auto) 0.5 K/mm3 (1.2-5.4) L 12/27/20 04:25 [place] # (Auto) 0.6 K/mm3 (0.0-0.8) 12/27/20 04:25 Eos # (Auto) 0.0 K/mm3 (0.0-0.4) 12/27/20 04:25 Baso # (Auto) 0.0 K/mm3 (0.0-0.1) 12/27/20 04:25 Add Manual Diff Complete 12/23/20 14:09 Total Counted 100 12/23/20 14:09 Seg Neutrophils % 85.9 % (40.0-70.0) H 12/27/20 04:25 Seg Neuts % (Manual) 87.0 % (40.0-70.0) H 12/23/20 14:09 Band Neutrophils % 4.0 % 12/23/20 14:09 Lymphocytes % (Manual) 3.0 % (13.4-35.0) L 12/23/20 14:09 Reactive Lymphs % (Man) 1.0 % 12/23/20 14:09 Monocytes % (Manual) 5.0 % (0.0-7.3) 12/23/20 14:09 Nucleated RBC % 1.0 % (0.0-0.9) H 12/23/20 14:09 Seg Neutrophils # 6.4 K/mm3 (1.8-7.7) 12/27/20 04:25 Seg Neutrophils # Man 1.6 K/mm3 (1.8-7.7) L 12/23/20 14:09 Band Neutrophils # 0.1 K/mm3 12/23/20 14:09 Lymphocytes # (Manual) 0.1 K/mm3 (1.2-5.4) L 12/23/20 14:09 Abs React Lymphs (Man) 0.0 K/mm3 12/23/20 14:09 Monocytes # (Manual) 0.1 K/mm3 (0.0-0.8) 12/23/20 14:09 Eosinophils # (Manual) 0.0 K/mm3 (0.0-0.4) 12/23/20 14:09 Basophils # (Manual) 0.0 K/mm3 (0.0-0.1) 12/23/20 14:09 Metamyelocytes # 0.0 K/mm3 12/23/20 14:09 Myelocytes # 0.0 K/mm3 12/23/20 14:09 Promyelocytes # 0.0 K/mm3 12/23/20 14:09 Blast Cells # 0.0 K/mm3 12/23/20 14:09 WBC Morphology Not Reportable 12/23/20 14:09 Hypersegmented Neuts Not Reportable 12/23/20 14:09 Hyposegmented Neuts Not Reportable 12/23/20 14:09 Hypogranular Neuts Not Reportable 12/23/20 14:09 Smudge Cells Not Reportable 12/23/20 14:09 Toxic Granulation Not Reportable 12/23/20 14:09 Toxic Vacuolation Not Reportable 12/23/20 14:09 Dohle Bodies Not Reportable 12/23/20 14:09 Pelger-Huet Anomaly Not Reportable 12/23/20 14:09 Jair Rods Not Reportable 12/23/20 14:09 Platelet Estimate Consistent w auto 12/23/20 14:09 Clumped Platelets Not Reportable 12/23/20 14:09 Plt Clumps, EDTA Not Reportable 12/23/20 14:09 Large Platelets Not Reportable 12/23/20 14:09 Giant Platelets Not Reportable 12/23/20 14:09 Platelet Satelliting Not Reportable 12/23/20 14:09 Plt Morphology Comment Not Reportable 12/23/20 14:09 RBC Morphology Normal 12/23/20 14:09 Dimorphic RBCs Not Reportable 12/23/20 14:09 Polychromasia Not Reportable 12/23/20 14:09 Hypochromasia Not Reportable 12/23/20 14:09 Poikilocytosis Not Reportable 12/23/20 14:09 Anisocytosis Not Reportable 12/23/20 14:09 Microcytosis Not Reportable 12/23/20 14:09 Macrocytosis Not Reportable 12/23/20 14:09 Spherocytes Not Reportable 12/23/20 14:09 Pappenheimer Bodies Not Reportable 12/23/20 14:09 Sickle Cells Not Reportable 12/23/20 14:09 Target Cells Not Reportable 12/23/20 14:09 Tear Drop Cells Not Reportable 12/23/20 14:09 Ovalocytes Not Reportable 12/23/20 14:09 Helmet Cells Not Reportable 12/23/20 14:09 [place] Bodies Not Reportable 12/23/20 14:09 Davy Rings Not Reportable 12/23/20 14:09 Ale Cells Not Reportable 12/23/20 14:09 Bite Cells Not Reportable 12/23/20 14:09 Crenated Cell Not Reportable 12/23/20 14:09 Elliptocytes Not Reportable 12/23/20 14:09 Acanthocytes (Spur) Not Reportable 12/23/20 14:09 Rouleaux Not Reportable 12/23/20 14:09 Hemoglobin C Crystals Not Reportable 12/23/20 14:09 Schistocytes Not Reportable 12/23/20 14:09 Malaria parasites Not Reportable 12/23/20 14:09 Giorgi Bodies Not Reportable 12/23/20 14:09 Hem Pathologist Commnt No 12/23/20 14:09 PT 13.1 Sec. (12.2-14.9) 12/21/20 05:50 INR 1.01 (0.87-1.13) 12/21/20 05:50 D-Dimer 4626.15 ng/mlDDU (0-234) H 12/28/20 15:43 Sodium 146 mmol/L (137-145) H 12/29/20 05:12 Potassium 4.8 mmol/L (3.6-5.0) 12/29/20 05:12 Chloride 104.8 mmol/L (98-107) 12/29/20 05:12 Carbon Dioxide 32 mmol/L (22-30) H 12/29/20 05:12 Anion Gap 14 mmol/L 12/29/20 05:12 BUN 34 mg/dL (7-17) H 12/29/20 05:12 Creatinine 0.9 mg/dL (0.6-1.2) 12/29/20 05:12 Estimated GFR > 60 ml/min 12/29/20 05:12 BUN/Creatinine Ratio 38 % 12/29/20 05:12 Glucose 126 mg/dL (65-100) H 12/29/20 05:12 POC Glucose 261 mg/dL (70-105) H 12/30/20 12:17 Hemoglobin A1c 10.3 % (4-6) H 12/21/20 05:50 Lactic Acid 1.40 mmol/L (0.7-2.0) 12/21/20 05:50 Calcium 8.8 mg/dL (8.4-10.2) 12/29/20 05:12 Magnesium 1.90 mg/dL (1.7-2.3) 12/26/20 04:29 Ferritin 1030.0 ng/mL (10.0-200.0) H 12/28/20 15:43 Total Bilirubin 0.30 mg/dL (0.1-1.2) 12/27/20 04:25 AST 31 units/L (5-40) 12/27/20 04:25 ALT 28 units/L (7-56) 12/27/20 04:25 Alkaline Phosphatase 242 units/L (35-129) H 12/27/20 04:25 Lactate Dehydrogenase 838 units/L (91-180) H 12/28/20 15:43 Troponin T < 0.010 ng/mL (0.00-0.029) 12/20/20 19:27 C-Reactive Protein 1.10 mg/dL (0.00-1.30) 12/28/20 15:43 Total Protein 7.3 g/dL (6.3-8.2) 12/27/20 04:25 Albumin 2.7 g/dL (3.9-5) L 12/27/20 04:25 Albumin/Globulin Ratio 0.6 % 12/27/20 04:25 Procalcitonin 0.07 ng/mL (<0.15) 12/26/20 11:08 Urine Color Yellow (Yellow) 12/22/20 03:00 Urine Turbidity Clear (Clear) 12/22/20 03:00 Urine pH 5.0 (5.0-7.0) 12/22/20 03:00 Ur Specific [place] 1.019 (1.003-1.030) 12/22/20 03:00 Urine Protein 100 mg/dl mg/dL (Negative) 12/22/20 03:00 Urine Glucose (UA) 50 mg/dL (Negative) 12/22/20 03:00 Urine Ketones Neg mg/dL (Negative) 12/22/20 03:00 Urine Blood Sm (Negative) 12/22/20 03:00 Urine Nitrite Neg (Negative) 12/22/20 03:00 Urine Bilirubin Neg (Negative) 12/22/20 03:00 Urine Urobilinogen 2.0 mg/dL (<2.0) 12/22/20 03:00 Ur Leukocyte Esterase Neg (Negative) 12/22/20 03:00 Urine WBC (Auto) 1.0 /HPF (0.0-6.0) 12/22/20 03:00 Urine RBC (Auto) 1.0 /HPF (0.0-6.0) 12/22/20 03:00 U Epithel Cells (Auto) 3.0 /HPF (0-13.0) 12/22/20 03:00 Urine Bacteria (Auto) 1+ /HPF (Negative) 12/22/20 03:00 Urine Mucus Few /HPF 12/22/20 03:00 Urine Eosinophils None seen (None Seen) 12/22/20 03:00 Urine Creatinine 117.9 mg/dL (0.1-20.0) H 12/22/20 03:00 Urine Sodium 67 mmol/L 12/22/20 03:00 Coronavirus (PCR) Positive (Negative) A 12/21/20 10:28 Hepatitis A IgM Ab Non-reactive (NonReactive) 12/22/20 06:00 Hep Bs Antigen Non-reactive (Negative) 12/22/20 06:00 Hep B Core IgM Ab Non-reactive (NonReactive) 12/22/20 06:00 Hepatitis C Antibody Non-reactive (NonReactive) 12/22/20 06:00 Curtis/IV: Voiding Method Indwelling Catheter Active Medications - Current Medications Current Medications: Generic Name Dose Route Start Last Admin Trade Name Freq PRN Reason Stop Dose Admin Acetaminophen 650 mg 12/20/20 23:15 12/24/20 09:40 Acetaminophen 325 Mg Tab PO 650 mg Q4H PRN Administration Pain MILD(1-3)/Fever >100.5/VARGAS Albuterol 2.5 mg 12/21/20 12:00 Albuterol 2.5 Mg/3 Ml Nebu IH Q4HRT PRN Shortness Of Breath Amlodipine Besylate 10 mg 12/26/20 14:00 12/30/20 09:04 Amlodipine 10 Mg Tab PO 10 mg QDAY TAMEKA Administration Dextrose 50 ml 12/20/20 23:15 Dextrose 50% In Water (25gm) 50 Ml Syringe IV Q30MIN PRN Hypoglycemia Protocol Enoxaparin Sodium 40 mg 12/21/20 22:00 12/29/20 22:37 Enoxaparin 40 Mg/0.4 Ml Inj SUB-Q 40 mg QDAY@2200 TAMEKA Administration Protocol Furosemide 40 mg 12/26/20 14:00 12/30/20 09:05 Furosemide 40 Mg/4 Ml Inj IV 40 mg QDAY TAMEKA Administration Gabapentin 800 mg 12/21/20 22:00 12/30/20 09:05 Gabapentin 400 Mg Cap PO 800 mg BID TAMEKA Administration Glipizide 10 mg 12/21/20 10:00 12/30/20 08:40 Glipizide 10 Mg Tab PO 10 mg BIDDIAB TAMEKA Administration Guaifenesin 200 mg 12/21/20 16:00 12/29/20 22:37 Guaifenesin 100 Mg/5 Ml Oral Liqd PO 200 mg Q4H PRN Administration Cough Dexmedetomidine HCl 400 mcg/ 104 mls @ 6.952 mls/hr 12/28/20 15:00 12/29/20 22:40 Sodium Chloride IV 0.2 mcg/kg/hr TITRATE TAMEKA 6.952 mls/hr Administration Protocol 0.2 MCG/KG/HR Insulin Human Isoph/Insulin Regular 25 unit 12/28/20 09:00 12/30/20 08:40 Insulin Nph/Regular 70/30 Inj SUB-Q 25 unit BIDDIAB TAMEKA Administration Insulin Human Lispro 0 unit 12/21/20 07:30 12/30/20 13:31 Insulin Lispro 100 Unit/Ml SUB-Q 6 unit ACHS TAMEKA Administration Protocol Lorazepam 0.5 mg 12/23/20 20:12 12/27/20 15:31 Lorazepam 2 Mg/Ml Vial IV 0.5 mg Q6H PRN Administration Anxiety Magnesium Hydroxide 30 ml 12/20/20 23:15 Magnesium Hydroxide (Mom) Oral Liqd Udc PO Q4H PRN Constipation Methylprednisolone Sodium Succinate 60 mg 12/29/20 18:00 12/30/20 13:32 Methylprednisolone Sod Succinate 125 Mg/2 Ml Inj IV 60 mg Q6HR TAMEKA Administration Morphine Sulfate 2 mg 12/20/20 23:15 12/25/20 22:10 Morphine 2 Mg/1 Ml Inj IV 2 mg Q4H PRN Administration Pain, Moderate (4-6) Ondansetron HCl 4 mg 12/20/20 23:15 Ondansetron 4 Mg/2 Ml Inj IV Q8H PRN Nausea And Vomiting Oxycodone/Acetaminophen 1 tab 12/21/20 16:00 12/27/20 22:49 Oxycodone /Acetaminophen 5-325mg Tab PO 1 tab Q6H PRN Administration Pain, Moderate (4-6) Sodium Chloride 10 ml 12/21/20 10:00 12/30/20 09:05 Sodium Chloride 0.9% 10 Ml Flush Syringe IV 10 ml BID TAMEKA Administration Sodium Chloride 10 ml 12/20/20 23:15 12/21/20 18:48 Sodium Chloride 0.9% 10 Ml Flush Syringe IV 10 ml PRN PRN Administration LINE FLUSH Sodium Chloride 1 applic 12/22/20 12:00 12/30/20 09:05 [place] Saline Nasal Gel 14.1 Gm NS Not Given BID TAMEKA Nutrition/Malnutrition Assess - Dietary Evaluation Nutrition/Malnutrition Findings: Nutrition Notes Start: 12/21/20 09:35 Freq: Status: Active Protocol: Document 12/29/20 12:42 MISHA (Rec: 12/29/20 12:47 MISHA [id number]) Co-Sign 12/29/20 12:42 NOE Nutrition Notes Initial or Follow up Reassessment Current Diagnosis Diabetes,Hypertension, Respiratory Failure Other Pertinent Diagnosis pneu, COVID 19(+), SOB, Diabetic Neuropathy Current Diet Cardiac Consistent Carbohydrate Labs/Tests Na 146 BUN 34 BG 126 Pertinent Medications Insulin Lasix Glipizide Solumedrol Height 5 ft 7 in Weight 132.4 kg [place] Body Weight (kg) 61.36 BMI 45.7 Weight change and time frame Wt change noted Weight Status Morbidly Obese Subjective/Other Information F/U for intakes and ONS. Per RN, pt intakes improving but still limited d/t BiPAP. Pt consuming 50% meals and 100% ONS. Percent of energy/protein needs met: 100%/100% (PO and ONS) Burn Absent Trauma Absent GI Symptoms None Current % PO Fair (50-74%) Minimum of two criteria No physical signs of malnutrition #1 Nutrition Diagnosis Inadequate oral intake As Evidenced by Signs and Symptoms pt meeting 100% energy and protein needs Diagnosis Progress(for reassessment Improved documentation) Is patient on ventilator? No Is Patient Ambulatory and/or Out of Bed Yes REE-([place]-St. Jeor-ambulatory/OOB) [ 2537.119 [id number]] Kcal/Kg value to use for calculation 15 Approximate Energy Requirements Using 1986 kcal/Kg Calculation Used for Recommendations Kcal/kg Additional Notes PRO needs: 82-102g (0.8-1g/kg AdBW 102 kg) Fluid needs: 1 mL/kcal or per MD Nutrition Intervention Change Diet Order: Continue current diet as ordered Add Supplement/Snack (indicate name/kcal Nepro BID /protein ) Provides kCal: 850 Provides Protein (gm) 38 Goal #1 Meet at least 75% of energy and protein needs via diet and ONS Anticipated Discharge Needs: Cardiac/Consistent CHO Follow-Up By: 12/31/20 Additional Comments F/U for PO/ONS intakes
--- NOTE | 2020-12-30 15:13 | Progress Note ---
Assessment and Plan Cultures: Blood culture no growth today SARS-CoV-2 PCR positive Assessment: 55-year-old female with history, diabetes mellitus, morbid obesity, admitted on 12/20/2020 secondary to a week history of cough, generalized malaise, fever, chills, progressive shortness of breath: #Acute sepsis: Likely secondary to severe COVID-19 pneumonia. #Severe COVID-19 pneumonia: Patient with underlying interstitial lung disease per CT report secondary hospital. Inflammatory markers elevated. D-dimer 260. Ferritin 1420. LDH 491. CRP 5.5. Chest x-ray with bilateral patchy infiltrates. Procalcitonin is slightly up in the setting of HOMA. #Acute hypoxemic respiratory failure: Worsening 100% FiO2 high flow nasal cannula and NR mask. #Elevated creatinine: Likely secondary to COVID-19. Improving. #Elevated LFTs: Likely secondary to COVID-19. Improving. #Neutropenia/thrombocytopenia: Likely secondary to COVID-19. Improving Recommendations: -s/p tocilizumab -Completed Remdesivir -Completed ceftriaxone and azithromycin -Continue IV steroids per pulmonary -Monitor inflammatory markers - ferritin, Ddimer, CRP, LDH -Pulmonary on board -Continue anticoagulation per System Protocol -Prone positioning as possible Will follow Ambreen Mathew MD [facility] O: [phone] F: [phone] Subjective Date of service: 12/30/20 Principal diagnosis: COVID-19 Interval history: Afebrile, no acute change. Remains on BiPAP. Objective - Exam Narrative Exam: General appearance: Alert, on HFNC Eyes: anicteric sclerae, moist conjunctivae; no lid-lag; PERRLA HENT: Normocephalic, Atraumatic; normal external ears, nares open, oropharynx limited Neck: supple, tracheal midline, no JVD Lungs: Bilateral scattered crackles CV: Tachycardic Abdomen: Soft, non-tender obese Extremities: no edema, no cyanosis Skin: No rash. Psych: Anxious Neuro: alert and oriented x 3. Moving all extermities - Constitutional Vitals: Vital Signs Temp Pulse Resp BP Pulse Ox 97.9 F 75 30 H 119/86 95 12/30/20 12:00 12/30/20 13:00 12/30/20 13:00 12/30/20 13:00 12/30/20 13:00 Temperature -Last 24 Hours Temperature 97.9 F Temperature 97.9 F Temperature 97.5 F Temperature 97.4 F Temperature 97.3 F Temperature 97.4 F - Labs CBC & Chem 7: 12/27/20 04:25 12/29/20 05:12 Labs: Abnormal lab results 12/29/20 12/29/20 12/29/20 Range/Units 08:25 11:24 16:49 POC Glucose 176 H 209 H 226 H (70-105) mg/dL 12/29/20 12/30/20 12/30/20 Range/Units 21:39 07:34 12:17 POC Glucose 169 H 206 H 261 H (70-105) mg/dL
[2020-12-30] MEDS: ENOXAPARIN 40 MG/0.4 ML INJ SUB-Q SCH (21:53)
[2020-12-30] MEDS: LORazepam 2 MG/ML VIAL IV PRN (21:55)
[2020-12-31] MEDS: INSULIN LISPRO 100 UNIT/ML SUB-Q SCH ×4 (00:16→17:16)
[2020-12-31] MEDS: methylPREDNISolone Sod Succinate 125 MG/2 ML INJ IV SCH ×4 (00:16→17:17)
[2020-12-31] MEDS: INSULIN NPH/REGULAR 70/30 INJ SUB-Q SCH ×2 (09:05→17:17)
[2020-12-31] MEDS: glipiZIDE 10 MG TAB PO SCH ×2 (09:05→17:16)
[2020-12-31] MEDS: GABAPENTIN 400 MG CAP PO SCH ×2 (09:06→22:45)
[2020-12-31] MEDS: FUROSEMIDE 40 MG/4 ML INJ IV SCH (09:06)
[2020-12-31] MEDS: AYR SALINE NASAL GEL 14.1 GM NS SCH ×2 (09:06→22:44)
[2020-12-31] MEDS: amLODIPine 10 MG TAB PO SCH (09:06)
--- NOTE | 2020-12-31 09:48 | Progress Note ---
Assessment and Plan 55 y/o female with acute respiratory failure secondary to cOVID 19 with prior history of ILD on a CT in [facility] 12/31/20: will continue steroids today as same dose and frequency. No changes to lasix therapy. Need to keep patient as calm as possible to allow bipap to work to avoid intubation at all costs. Prognosis still remains guarded. 12/30/20: Continue steroids at 60q6. Continue daily lasix. may need to consider BID dosing to help with more volume removal if renal function will permit. Overall prognosis is very very guarded to poor, especially if the patient ends up on the mechanical ventilator. 12/29/20: Will increase steroids to q6 hour dosing to see if this helps. Prognosis is very very guarded. 12/28/20: Continue steroids and lasix, may need to ask renal about BID dosing for a few days to see if this will help. Prone as tolerated during the day and sleep prone at night. 1. Agree with change in steroids to solumedrol 60q8, will continue for now 2. Agree with daily lasix but goal should be daily net negative state. 3. Prone as tolerated during the day and sleep prone at night 4. Guarded prognosis Subjective Date of service: 12/31/20 Principal diagnosis: COVID-19 Interval history: patient now on continuous bipap. Sats are in the high 90's but she is on 100% and 16/10. ABG yesterday shows known hypoxemia. Objective Vital Signs - 12hr 12/30/20 12/30/20 12/30/20 21:48 22:00 23:00 Temperature Pulse Rate 86 99 H 77 Pulse Rate [ From Monitor] Respiratory 32 H 31 H 20 Rate Blood Pressure 135/101 156/96 137/91 O2 Sat by Pulse 98 86 97 Oximetry 12/31/20 12/31/20 12/31/20 00:00 01:00 01:08 Temperature 97.9 F Pulse Rate 73 77 75 Pulse Rate [ 75 From Monitor] Respiratory 18 28 H 24 Rate Blood Pressure 131/81 155/110 155/100 O2 Sat by Pulse 100 98 99 Oximetry 12/31/20 12/31/20 12/31/20 02:00 03:00 03:47 Temperature Pulse Rate 72 73 Pulse Rate [ From Monitor] Respiratory 21 26 H Rate Blood Pressure 148/93 163/107 O2 Sat by Pulse 97 96 99 Oximetry 12/31/20 12/31/20 12/31/20 04:00 05:00 06:00 Temperature 97.6 F Pulse Rate 77 82 76 Pulse Rate [ 76 From Monitor] Respiratory 21 25 H 28 H Rate Blood Pressure 171/105 153/102 140/96 O2 Sat by Pulse 98 92 98 Oximetry 12/31/20 12/31/20 12/31/20 07:00 07:28 07:51 Temperature 97.6 F Pulse Rate 68 78 Pulse Rate [ From Monitor] Respiratory 17 36 H Rate Blood Pressure 135/90 147/91 O2 Sat by Pulse 98 94 Oximetry Constitutional: no acute distress, alert (obese), other (on BIPAP) Eyes: non-icteric ENT: oropharynx moist Neck: supple Effort: normal Ascultation: Bilateral: clear, diminished breath sounds (anteriorly) Cardiovascular: regular rate and rhythm (no mrg) Gastrointestinal: normoactive bowel sounds, soft, non-tender, non-distended Integumentary: normal Extremities: no cyanosis, no edema, pink and warm Neurologic: normal mental status, non-focal exam Psychiatric: mood appropriate, affect normal CBC and BMP: 12/27/20 04:25 12/29/20 05:12 ABG, PT/INR, D-dimer: ABG ABG pH 7.454 (7.320-7.450) H 12/30/20 18:03 POC ABG pCO2 49.7 mmHg (32.0-48.0) H 12/30/20 18:03 POC ABG pO2 59.0 mmHg (83-108) L 12/30/20 18:03 POC ABG HCO3 34.1 12/30/20 18:03 ABG O2 Saturation 89.9 (0-100) 12/30/20 18:03 PT/INR, D-dimer PT 13.1 Sec. (12.2-14.9) 12/21/20 05:50 INR 1.01 (0.87-1.13) 12/21/20 05:50 D-Dimer 4626.15 ng/mlDDU (0-234) H 12/28/20 15:43 Abnormal lab findings: Abnormal Labs 12/20/20 12/20/20 12/20/20 19:27 19:27 19:27 WBC 2.9 L RBC MCHC Plt Count 116 L Lymph % (Auto) 41.2 H [place] % (Auto) 13.2 H Lymph # (Auto) Seg Neutrophils % Seg Neuts % (Manual) Lymphocytes % (Manual) Nucleated RBC % Seg Neutrophils # 1.3 L Seg Neutrophils # Man Lymphocytes # (Manual) D-Dimer 260.58 H ABG pH POC ABG pCO2 POC ABG pO2 ABG Oxyhemoglobin ABG Sodium ABG Glucose Sodium 135 L Potassium Chloride 96.1 L Carbon Dioxide BUN 23 H Creatinine 1.4 H Glucose 295 H POC Glucose Hemoglobin A1c Calcium 8.3 L Ferritin AST 125 H ALT 96 H Alkaline Phosphatase 323 H Lactate Dehydrogenase C-Reactive Protein Total Protein 8.7 H Albumin 3.7 L Arterial Blood Glucose Arterial Blood Ionized Calcium Urine Creatinine Coronavirus (PCR) 12/20/20 12/20/20 12/21/20 19:43 19:43 05:50 WBC RBC MCHC Plt Count Lymph % (Auto) [place] % (Auto) Lymph # (Auto) Seg Neutrophils % Seg Neuts % (Manual) Lymphocytes % (Manual) Nucleated RBC % Seg Neutrophils # Seg Neutrophils # Man Lymphocytes # (Manual) D-Dimer ABG pH POC ABG pCO2 POC ABG pO2 ABG Oxyhemoglobin ABG Sodium ABG Glucose Sodium Potassium Chloride Carbon Dioxide BUN Creatinine Glucose 297 H POC Glucose Hemoglobin A1c 10.3 H Calcium Ferritin 1420.0 H AST ALT Alkaline Phosphatase Lactate Dehydrogenase 491 H C-Reactive Protein 5.50 H Total Protein Albumin Arterial Blood Glucose Arterial Blood Ionized Calcium Urine Creatinine Coronavirus (PCR) 12/21/20 12/21/20 12/21/20 05:50 05:50 08:04 WBC 1.6 L* RBC 3.40 L MCHC Plt Count 104 L Lymph % (Auto) [place] % (Auto) Lymph # (Auto) Seg Neutrophils % Seg Neuts % (Manual) 82.0 H Lymphocytes % (Manual) Nucleated RBC % Seg Neutrophils # Seg Neutrophils # Man 1.3 L Lymphocytes # (Manual) 0.3 L D-Dimer ABG pH POC ABG pCO2 POC ABG pO2 ABG Oxyhemoglobin ABG Sodium ABG Glucose Sodium 132 L Potassium 5.7 H D Chloride 95.7 L Carbon Dioxide BUN 33 H Creatinine 1.7 H Glucose 500 H POC Glucose 483 H Hemoglobin A1c Calcium 7.7 L Ferritin AST ALT Alkaline Phosphatase Lactate Dehydrogenase C-Reactive Protein Total Protein Albumin Arterial Blood Glucose Arterial Blood Ionized Calcium Urine Creatinine Coronavirus (PCR) 12/21/20 12/21/20 12/21/20 10:28 12:05 16:54 WBC RBC MCHC Plt Count Lymph % (Auto) [place] % (Auto) Lymph # (Auto) Seg Neutrophils % Seg Neuts % (Manual) Lymphocytes % (Manual) Nucleated RBC % Seg Neutrophils # Seg Neutrophils # Man Lymphocytes # (Manual) D-Dimer ABG pH POC ABG pCO2 POC ABG pO2 ABG Oxyhemoglobin ABG Sodium ABG Glucose Sodium Potassium Chloride Carbon Dioxide BUN Creatinine Glucose POC Glucose 482 H 374 H Hemoglobin A1c Calcium Ferritin AST ALT Alkaline Phosphatase Lactate Dehydrogenase C-Reactive Protein Total Protein Albumin Arterial Blood Glucose Arterial Blood Ionized Calcium Urine Creatinine Coronavirus (PCR) Positive A 12/21/20 12/21/20 12/22/20 18:24 22:12 03:00 WBC RBC MCHC Plt Count Lymph % (Auto) [place] % (Auto) Lymph # (Auto) Seg Neutrophils % Seg Neuts % (Manual) Lymphocytes % (Manual) Nucleated RBC % Seg Neutrophils # Seg Neutrophils # Man Lymphocytes # (Manual) D-Dimer ABG pH POC ABG pCO2 POC ABG pO2 ABG Oxyhemoglobin ABG Sodium ABG Glucose Sodium 131 L Potassium Chloride 95.2 L Carbon Dioxide BUN 37 H Creatinine 1.4 H Glucose 417 H POC Glucose 358 H Hemoglobin A1c Calcium 7.5 L Ferritin AST 82 H ALT 69 H Alkaline Phosphatase 262 H Lactate Dehydrogenase C-Reactive Protein Total Protein Albumin 3.0 L Arterial Blood Glucose Arterial Blood Ionized Calcium Urine Creatinine 117.9 H Coronavirus (PCR) 12/22/20 12/22/20 12/22/20 05:29 08:19 11:18 WBC RBC MCHC Plt Count Lymph % (Auto) [place] % (Auto) Lymph # (Auto) Seg Neutrophils % Seg Neuts % (Manual) Lymphocytes % (Manual) Nucleated RBC % Seg Neutrophils # Seg Neutrophils # Man Lymphocytes # (Manual) D-Dimer ABG pH POC ABG pCO2 POC ABG pO2 ABG Oxyhemoglobin ABG Sodium ABG Glucose Sodium Potassium Chloride Carbon Dioxide BUN 34 H Creatinine 1.3 H Glucose 169 H POC Glucose 136 H 132 H Hemoglobin A1c Calcium 7.5 L Ferritin AST 74 H ALT 60 H Alkaline Phosphatase 249 H Lactate Dehydrogenase C-Reactive Protein Total Protein Albumin 3.1 L Arterial Blood Glucose Arterial Blood Ionized Calcium Urine Creatinine Coronavirus (PCR) 12/22/20 12/22/20 12/22/20 14:18 14:18 16:36 WBC RBC MCHC Plt Count Lymph % (Auto) [place] % (Auto) Lymph # (Auto) Seg Neutrophils % Seg Neuts % (Manual) Lymphocytes % (Manual) Nucleated RBC % Seg Neutrophils # Seg Neutrophils # Man Lymphocytes # (Manual) D-Dimer ABG pH POC ABG pCO2 POC ABG pO2 ABG Oxyhemoglobin ABG Sodium ABG Glucose Sodium Potassium Chloride Carbon Dioxide BUN Creatinine Glucose POC Glucose 440 H Hemoglobin A1c Calcium Ferritin 1295.0 H AST ALT Alkaline Phosphatase Lactate Dehydrogenase 620 H C-Reactive Protein 2.70 H Total Protein Albumin Arterial Blood Glucose Arterial Blood Ionized Calcium Urine Creatinine Coronavirus (PCR) 12/22/20 12/23/20 12/23/20 21:07 08:09 11:30 WBC RBC MCHC Plt Count Lymph % (Auto) [place] % (Auto) Lymph # (Auto) Seg Neutrophils % Seg Neuts % (Manual) Lymphocytes % (Manual) Nucleated RBC % Seg Neutrophils # Seg Neutrophils # Man Lymphocytes # (Manual) D-Dimer ABG pH POC ABG pCO2 POC ABG pO2 ABG Oxyhemoglobin ABG Sodium ABG Glucose Sodium Potassium Chloride Carbon Dioxide BUN Creatinine Glucose POC Glucose 493 H 156 H 185 H Hemoglobin A1c Calcium Ferritin AST ALT Alkaline Phosphatase Lactate Dehydrogenase C-Reactive Protein Total Protein Albumin Arterial Blood Glucose Arterial Blood Ionized Calcium Urine Creatinine Coronavirus (PCR) 12/23/20 12/23/20 12/23/20 14:09 14:09 16:26 WBC 1.8 L* RBC 3.45 L MCHC Plt Count 114 L Lymph % (Auto) [place] % (Auto) Lymph # (Auto) Seg Neutrophils % Seg Neuts % (Manual) 87.0 H Lymphocytes % (Manual) 3.0 L Nucleated RBC % 1.0 H Seg Neutrophils # Seg Neutrophils # Man 1.6 L Lymphocytes # (Manual) 0.1 L D-Dimer ABG pH POC ABG pCO2 POC ABG pO2 ABG Oxyhemoglobin ABG Sodium ABG Glucose Sodium Potassium Chloride Carbon Dioxide BUN 19 H Creatinine Glucose 292 H POC Glucose 351 H Hemoglobin A1c Calcium 7.4 L Ferritin AST 71 H ALT Alkaline Phosphatase 264 H Lactate Dehydrogenase C-Reactive Protein Total Protein Albumin 3.0 L Arterial Blood Glucose Arterial Blood Ionized Calcium Urine Creatinine Coronavirus (PCR) 0512/24/20 12/24/20 21:11 08:21 11:58 WBC RBC MCHC Plt Count Lymph % (Auto) [place] % (Auto) Lymph # (Auto) Seg Neutrophils % Seg Neuts % (Manual) Lymphocytes % (Manual) Nucleated RBC % Seg Neutrophils # Seg Neutrophils # Man Lymphocytes # (Manual) D-Dimer ABG pH POC ABG pCO2 POC ABG pO2 ABG Oxyhemoglobin ABG Sodium ABG Glucose Sodium Potassium Chloride Carbon Dioxide BUN Creatinine Glucose POC Glucose 288 H 286 H 277 H Hemoglobin A1c Calcium Ferritin AST ALT Alkaline Phosphatase Lactate Dehydrogenase C-Reactive Protein Total Protein Albumin Arterial Blood Glucose Arterial Blood Ionized Calcium Urine Creatinine Coronavirus (PCR) 12/24/20 12/24/20 12/24/20 12:29 12:29 16:05 WBC 2.5 L RBC 3.49 L MCHC 35 H Plt Count 132 L Lymph % (Auto) [place] % (Auto) 7.6 H Lymph # (Auto) 0.4 L Seg Neutrophils % 74.7 H Seg Neuts % (Manual) Lymphocytes % (Manual) Nucleated RBC % Seg Neutrophils # Seg Neutrophils # Man Lymphocytes # (Manual) D-Dimer ABG pH POC ABG pCO2 POC ABG pO2 ABG Oxyhemoglobin ABG Sodium ABG Glucose Sodium Potassium Chloride Carbon Dioxide BUN Creatinine Glucose 256 H POC Glucose 282 H Hemoglobin A1c Calcium 7.8 L Ferritin AST 50 H ALT Alkaline Phosphatase 262 H Lactate Dehydrogenase C-Reactive Protein Total Protein Albumin 2.8 L Arterial Blood Glucose Arterial Blood Ionized Calcium Urine Creatinine Coronavirus (PCR) 12/24/20 12/25/20 12/25/20 22:01 07:58 11:38 WBC RBC MCHC Plt Count Lymph % (Auto) [place] % (Auto) Lymph # (Auto) Seg Neutrophils % Seg Neuts % (Manual) Lymphocytes % (Manual) Nucleated RBC % Seg Neutrophils # Seg Neutrophils # Man Lymphocytes # (Manual) D-Dimer ABG pH POC ABG pCO2 POC ABG pO2 ABG Oxyhemoglobin ABG Sodium ABG Glucose Sodium Potassium Chloride Carbon Dioxide BUN Creatinine Glucose POC Glucose 366 H 278 H 325 H Hemoglobin A1c Calcium Ferritin AST ALT Alkaline Phosphatase Lactate Dehydrogenase C-Reactive Protein Total Protein Albumin Arterial Blood Glucose Arterial Blood Ionized Calcium Urine Creatinine Coronavirus (PCR) 12/25/20 12/25/20 12/26/20 15:47 21:31 04:29 WBC RBC MCHC Plt Count Lymph % (Auto) [place] % (Auto) Lymph # (Auto) Seg Neutrophils % Seg Neuts % (Manual) Lymphocytes % (Manual) Nucleated RBC % Seg Neutrophils # Seg Neutrophils # Man Lymphocytes # (Manual) D-Dimer ABG pH POC ABG pCO2 POC ABG pO2 ABG Oxyhemoglobin ABG Sodium ABG Glucose Sodium Potassium Chloride Carbon Dioxide BUN 22 H Creatinine Glucose 327 H POC Glucose 316 H 339 H Hemoglobin A1c Calcium 7.9 L Ferritin AST ALT Alkaline Phosphatase Lactate Dehydrogenase C-Reactive Protein Total Protein Albumin Arterial Blood Glucose Arterial Blood Ionized Calcium Urine Creatinine Coronavirus (PCR) 12/26/20 12/26/20 12/26/20 07:42 11:08 11:08 WBC RBC MCHC Plt Count Lymph % (Auto) [place] % (Auto) Lymph # (Auto) Seg Neutrophils % Seg Neuts % (Manual) Lymphocytes % (Manual) Nucleated RBC % Seg Neutrophils # Seg Neutrophils # Man Lymphocytes # (Manual) D-Dimer 1954.54 H ABG pH POC ABG pCO2 POC ABG pO2 ABG Oxyhemoglobin ABG Sodium ABG Glucose Sodium Potassium Chloride Carbon Dioxide BUN Creatinine Glucose POC Glucose 353 H Hemoglobin A1c Calcium Ferritin 932.1 H AST ALT Alkaline Phosphatase Lactate Dehydrogenase C-Reactive Protein Total Protein Albumin Arterial Blood Glucose Arterial Blood Ionized Calcium Urine Creatinine Coronavirus (PCR) 12/26/20 12/26/20 12/26/20 11:08 11:57 16:40 WBC RBC MCHC Plt Count Lymph % (Auto) [place] % (Auto) Lymph # (Auto) Seg Neutrophils % Seg Neuts % (Manual) Lymphocytes % (Manual) Nucleated RBC % Seg Neutrophils # Seg Neutrophils # Man Lymphocytes # (Manual) D-Dimer ABG pH POC ABG pCO2 POC ABG pO2 ABG Oxyhemoglobin ABG Sodium ABG Glucose Sodium Potassium Chloride Carbon Dioxide BUN Creatinine Glucose POC Glucose 318 H 352 H Hemoglobin A1c Calcium Ferritin AST ALT Alkaline Phosphatase Lactate Dehydrogenase 698 H C-Reactive Protein 3.70 H Total Protein Albumin Arterial Blood Glucose Arterial Blood Ionized Calcium Urine Creatinine Coronavirus (PCR) 12/26/20 12/27/20 12/27/20 21:29 04:25 04:25 WBC RBC MCHC Plt Count Lymph % (Auto) 6.4 L [place] % (Auto) 7.5 H Lymph # (Auto) 0.5 L Seg Neutrophils % 85.9 H Seg Neuts % (Manual) Lymphocytes % (Manual) Nucleated RBC % Seg Neutrophils # Seg Neutrophils # Man Lymphocytes # (Manual) D-Dimer ABG pH POC ABG pCO2 POC ABG pO2 ABG Oxyhemoglobin ABG Sodium ABG Glucose Sodium Potassium 5.4 H D Chloride Carbon Dioxide BUN 30 H Creatinine Glucose 273 H POC Glucose 376 H Hemoglobin A1c Calcium 8.1 L Ferritin AST ALT Alkaline Phosphatase 242 H Lactate Dehydrogenase C-Reactive Protein Total Protein Albumin 2.7 L Arterial Blood Glucose Arterial Blood Ionized Calcium Urine Creatinine Coronavirus (PCR) 12/27/20 12/27/20 12/27/20 08:05 11:39 17:28 WBC RBC MCHC Plt Count Lymph % (Auto) [place] % (Auto) Lymph # (Auto) Seg Neutrophils % Seg Neuts % (Manual) Lymphocytes % (Manual) Nucleated RBC % Seg Neutrophils # Seg Neutrophils # Man Lymphocytes # (Manual) D-Dimer ABG pH POC ABG pCO2 POC ABG pO2 ABG Oxyhemoglobin ABG Sodium ABG Glucose Sodium Potassium Chloride Carbon Dioxide BUN Creatinine Glucose POC Glucose 287 H 359 H 490 H Hemoglobin A1c Calcium Ferritin AST ALT Alkaline Phosphatase Lactate Dehydrogenase C-Reactive Protein Total Protein Albumin Arterial Blood Glucose Arterial Blood Ionized Calcium Urine Creatinine Coronavirus (PCR) 12/27/20 12/27/20 12/28/20 21:43 21:53 04:41 WBC RBC MCHC Plt Count Lymph % (Auto) [place] % (Auto) Lymph # (Auto) Seg Neutrophils % Seg Neuts % (Manual) Lymphocytes % (Manual) Nucleated RBC % Seg Neutrophils # Seg Neutrophils # Man Lymphocytes # (Manual) D-Dimer ABG pH POC ABG pCO2 POC ABG pO2 ABG Oxyhemoglobin ABG Sodium ABG Glucose Sodium Potassium Chloride Carbon Dioxide 31 H BUN 35 H Creatinine Glucose 328 H POC Glucose 503 H 438 H Hemoglobin A1c Calcium Ferritin AST ALT Alkaline Phosphatase Lactate Dehydrogenase C-Reactive Protein Total Protein Albumin Arterial Blood Glucose Arterial Blood Ionized Calcium Urine Creatinine Coronavirus (PCR) 12/28/20 12/28/20 12/28/20 07:58 11:40 15:43 WBC RBC MCHC Plt Count Lymph % (Auto) [place] % (Auto) Lymph # (Auto) Seg Neutrophils % Seg Neuts % (Manual) Lymphocytes % (Manual) Nucleated RBC % Seg Neutrophils # Seg Neutrophils # Man Lymphocytes # (Manual) D-Dimer 4626.15 H ABG pH POC ABG pCO2 POC ABG pO2 ABG Oxyhemoglobin ABG Sodium ABG Glucose Sodium Potassium Chloride Carbon Dioxide BUN Creatinine Glucose POC Glucose 321 H 455 H Hemoglobin A1c Calcium Ferritin AST ALT Alkaline Phosphatase Lactate Dehydrogenase C-Reactive Protein Total Protein Albumin Arterial Blood Glucose Arterial Blood Ionized Calcium Urine Creatinine Coronavirus (PCR) 12/28/20 12/28/20 12/28/20 15:43 15:43 17:10 WBC RBC MCHC Plt Count Lymph % (Auto) [place] % (Auto) Lymph # (Auto) Seg Neutrophils % Seg Neuts % (Manual) Lymphocytes % (Manual) Nucleated RBC % Seg Neutrophils # Seg Neutrophils # Man Lymphocytes # (Manual) D-Dimer ABG pH POC ABG pCO2 POC ABG pO2 ABG Oxyhemoglobin ABG Sodium ABG Glucose Sodium Potassium Chloride Carbon Dioxide BUN Creatinine Glucose POC Glucose 291 H Hemoglobin A1c Calcium Ferritin 1030.0 H AST ALT Alkaline Phosphatase Lactate Dehydrogenase 838 H C-Reactive Protein Total Protein Albumin Arterial Blood Glucose Arterial Blood Ionized Calcium Urine Creatinine Coronavirus (PCR) 12/28/20 12/29/20 12/29/20 21:42 05:12 08:25 WBC RBC MCHC Plt Count Lymph % (Auto) [place] % (Auto) Lymph # (Auto) Seg Neutrophils % Seg Neuts % (Manual) Lymphocytes % (Manual) Nucleated RBC % Seg Neutrophils # Seg Neutrophils # Man Lymphocytes # (Manual) D-Dimer ABG pH POC ABG pCO2 POC ABG pO2 ABG Oxyhemoglobin ABG Sodium ABG Glucose Sodium 146 H Potassium Chloride Carbon Dioxide 32 H BUN 34 H Creatinine Glucose 126 H POC Glucose 240 H 176 H Hemoglobin A1c Calcium Ferritin AST ALT Alkaline Phosphatase Lactate Dehydrogenase C-Reactive Protein Total Protein Albumin Arterial Blood Glucose Arterial Blood Ionized Calcium Urine Creatinine Coronavirus (PCR) 12/29/20 12/29/20 12/29/20 11:24 16:49 21:39 WBC RBC MCHC Plt Count Lymph % (Auto) [place] % (Auto) Lymph # (Auto) Seg Neutrophils % Seg Neuts % (Manual) Lymphocytes % (Manual) Nucleated RBC % Seg Neutrophils # Seg Neutrophils # Man Lymphocytes # (Manual) D-Dimer ABG pH POC ABG pCO2 POC ABG pO2 ABG Oxyhemoglobin ABG Sodium ABG Glucose Sodium Potassium Chloride Carbon Dioxide BUN Creatinine Glucose POC Glucose 209 H 226 H 169 H Hemoglobin A1c Calcium Ferritin AST ALT Alkaline Phosphatase Lactate Dehydrogenase C-Reactive Protein Total Protein Albumin Arterial Blood Glucose Arterial Blood Ionized Calcium Urine Creatinine Coronavirus (PCR) 12/30/20 12/30/20 12/30/20 07:34 12:17 16:29 WBC RBC MCHC Plt Count Lymph % (Auto) [place] % (Auto) Lymph # (Auto) Seg Neutrophils % Seg Neuts % (Manual) Lymphocytes % (Manual) Nucleated RBC % Seg Neutrophils # Seg Neutrophils # Man Lymphocytes # (Manual) D-Dimer ABG pH POC ABG pCO2 POC ABG pO2 ABG Oxyhemoglobin ABG Sodium ABG Glucose Sodium Potassium Chloride Carbon Dioxide BUN Creatinine Glucose POC Glucose 206 H 261 H 229 H Hemoglobin A1c Calcium Ferritin AST ALT Alkaline Phosphatase Lactate Dehydrogenase C-Reactive Protein Total Protein Albumin Arterial Blood Glucose Arterial Blood Ionized Calcium Urine Creatinine Coronavirus (PCR) 12/30/20 12/30/20 12/31/20 18:03 23:13 08:43 WBC RBC MCHC Plt Count Lymph % (Auto) [place] % (Auto) Lymph # (Auto) Seg Neutrophils % Seg Neuts % (Manual) Lymphocytes % (Manual) Nucleated RBC % Seg Neutrophils # Seg Neutrophils # Man Lymphocytes # (Manual) D-Dimer ABG pH 7.454 H POC ABG pCO2 49.7 H POC ABG pO2 59.0 L ABG Oxyhemoglobin 88.6 L ABG Sodium 146.4 H ABG Glucose 252 H Sodium Potassium Chloride Carbon Dioxide BUN Creatinine Glucose POC Glucose 188 H 191 H Hemoglobin A1c Calcium Ferritin AST ALT Alkaline Phosphatase Lactate Dehydrogenase C-Reactive Protein Total Protein Albumin Arterial Blood Glucose 252 H Arterial Blood Ionized Calcium 4.5 L Urine Creatinine Coronavirus (PCR)
--- NOTE | 2020-12-31 12:03 | Progress Note ---
Assessment and Plan Assessment and plan: --COVID-19 test positive on 12/21/2020 --Acute hypoxic respiratory failure; Due to severe COVID-19 infection as well as Obesity hypoventilation syndrome Requiring BiPAP, full mask, Wean as tolerated, Prone positioning, pulmonary and ID following --Elevated D-dimers; due to COVID-19 CTA chest negative for PE lower extremity venous Doppler negative for DVT --Sepsis due to COVID-19 pneumonia Procalcitonin low, no need for antibiotics --Severe, COVID-19 infection;Guarded prognosis Completed remdesivir Received Tocilizumab Continue IV steroids Monitor inflammatory markers Prone positioning as tolerated Home oxygen evaluation prior to discharge Follow ID and pulmonary recommendations --Diabetes mellitus type 2; uncontrolled,A1c 10.3 Moderate control, Accu-Chek sliding scale coverage ADA diet and long-acting insulin Diabetic education, diabetic diet education when patient is more stable --Morbid obesity; BMI 46.2 Patient needs weight reduction when medically stable Patient needs outpatient pulmonary evaluation for sleep study to evaluate for JERMAINE Continue BiPAP --OHS/JERMAINE; due to morbid obesity Patient needs outpatient sleep study to rule out JERMAINE CPAP/BiPAP at night and as needed --Elevated LFTs probably Covid related; Present on admission, resolved today --DVT prophylaxis; Lovenox Closely monitor the patient and adjust the management as needed Note Teller recommendations noted and appreciated Plan of care reviewed with the patient and her nurse Patient is critically ill with guarded prognosis Patient and family aware Brief history and daily patient care; Morbidly obese 55 y/o -[place] female patient past medical history of ILD on CT scan[per [facility] records] was admitted with worsening shortness of breath noted to have severe COVID-19 pneumonia. With acute hypoxic respiratory failure, BiPAP dependent. ID pulmonary following 12/21/2020. Follow-up COVID-19 testing. Continue to trend inflammatory markers. Continue dexamethasone. ID and pulmonary consultation pending. Patient currently with 6 L/min O2 FiO2 44%. 12/22/2020. COVID-19 testing found to be positive. Continue to trend inflammatory markers. Continue dexamethasone. Patient requiring more oxygen with high flow nasal cannula 30 L/min and FiO2 100%. ID and pulmonary following. 12/23/2020. Patient with increasing oxygen requirements with high flow nasal cannula 40 L/min with FiO2 100%. Continue dexamethasone per ID recommendations. We will transfer to IMCU for closer monitoring. 12/24/2020. Patient was transferred to [facility] for closer monitoring yesterday. Patient currently requiring BiPAP with IPAP 16 and EPAP of 8 with FiO2 100%. Continue dexamethasone and remdesivir. Continue to trend inflammatory markers. Continue anticoagulation. Prone position as possible. Continue ceftriaxone and azithromycin per ID recommendations. 12/25/2020. Patient currently requiring BiPAP with IPAP 16 and EPAP of 8 with FiO2 100%. Continue IV steroids of Solu-Medrol 60 mg every 8 hour and remdesivir. Continue to trend inflammatory markers. Continue anticoagulation with Lovenox. Prone position as possible. Continue ceftriaxone and azithromycin per ID recommendations. Prognosis is guarded. 12/26/2020 BG not controlled with glipizide. Start Lantus at bedtime for BG control. Elevated BG likely secondary to IV steroid. Patient currently requiring BiPAP with IPAP 18 and EPAP of 10 with FiO2 100%. Continue IV steroids of Solu-Medrol 60 mg every 8 hour and remdesivir. Continue to trend inflammatory markers. Continue anticoagulation with Lovenox. Prone position as possible. Continue ceftriaxone and azithromycin per ID recommendations. Prognosis is guarded. 12/27/2020. Blood glucose is improved but not optimal. Therefore, increase Lantus to 14 units at bedtime. Elevated BG likely secondary to IV steroid. Patient currently requiring BiPAP with IPAP 18 and EPAP of 10 with FiO2 100%. Continue IV steroids of Solu-Medrol 60 mg every 8 hour and remdesivir. Continue to trend inflammatory markers. Continue anticoagulation with Lovenox. Prone position as possible. Continue ceftriaxone and azithromycin per ID recommendations. Prognosis is guarded. 12/28/2020; patient's blood sugars are uncontrolled, secondary to noncompliance, partly due to high-dose steroids Patient remains hypoxic on continuous BiPAP Switch to 70/30 Novolin 20 units twice a day adjust as needed Patient's A1c 10.3, diabetic education nutrition education 12/29/2020; patient continues to be hypoxemic requiring continuous BiPAP Worsening D-dimers, CTA negative for PE, venous Doppler negative DVT 12/30/2020; patient continues to require continuous BiPAP Wean as tolerated, patient is critically ill with poor prognosis Note Teller recommendations noted and appreciated 12/31/2020; patient is on BiPAP Wean as tolerated, continue nebulizers IV steroids And other supportive care Pulmonary and ID recommendations noted and appreciated History Interval history: I have seen and examined the patient in IMCU this morning Patient's chart and medications reviewed Patient continues to be hypoxemic on continuous BiPAP In mild distress, anxious to go home Vital signs noted Hospitalist Physical - Constitutional Vitals: Temp Pulse Resp BP Pulse Ox 97.6 F 73 28 H 156/92 98 12/31/20 07:28 12/31/20 11:08 12/31/20 11:08 12/31/20 11:08 12/31/20 11:08 General appearance: Present: mild distress, well-nourished, obese (Morbidly obe se), other (On BiPAP) - EENT Eyes: Present: PERRL, EOM intact - Neck Neck: Present: supple, normal ROM - Respiratory Respiratory effort: labored Respiratory: bilateral: diminished, rhonchi, negative: rales, wheezing - Cardiovascular Rhythm: regular Heart Sounds: Present: S1 & S2 - Extremities Extremities: no ischemia, No edema, abnormal (Obese) - Abdominal General gastrointestinal: soft, non-tender, non-distended, normal bowel sounds - Integumentary Integumentary: Present: clear, warm - Psychiatric Psychiatric: appropriate mood/affect, cooperative - Neurologic Neurologic: moves all extremities HEART Score - HEART Score Troponin: Troponin T < 0.010 ng/mL (0.00-0.029) 12/20/20 19:27 Results - Labs CBC & Chem 7: 12/27/20 04:25 12/29/20 05:12 Labs: Laboratory Last Values WBC 7.5 K/mm3 (4.5-11.0) 12/27/20 04:25 RBC 4.05 M/mm3 (3.65-5.03) 12/27/20 04:25 Hgb 13.1 gm/dl (10.1-14.3) 12/27/20 04:25 Hct 38.8 % (30.3-42.9) D 12/27/20 04:25 MCV 96 fl (79-97) 12/27/20 04:25 MCH 32 pg (28-32) 12/27/20 04:25 MCHC 34 % (30-34) 12/27/20 04:25 RDW 13.7 % (13.2-15.2) 12/27/20 04:25 Plt Count 230 K/mm3 (140-440) 12/27/20 04:25 Lymph % (Auto) 6.4 % (13.4-35.0) L 12/27/20 04:25 [place] % (Auto) 7.5 % (0.0-7.3) H 12/27/20 04:25 Eos % (Auto) 0.0 % (0.0-4.3) 12/27/20 04:25 Baso % (Auto) 0.2 % (0.0-1.8) 12/27/20 04:25 Lymph # (Auto) 0.5 K/mm3 (1.2-5.4) L 12/27/20 04:25 [place] # (Auto) 0.6 K/mm3 (0.0-0.8) 12/27/20 04:25 Eos # (Auto) 0.0 K/mm3 (0.0-0.4) 12/27/20 04:25 Baso # (Auto) 0.0 K/mm3 (0.0-0.1) 12/27/20 04:25 Add Manual Diff Complete 12/23/20 14:09 Total Counted 100 12/23/20 14:09 Seg Neutrophils % 85.9 % (40.0-70.0) H 12/27/20 04:25 Seg Neuts % (Manual) 87.0 % (40.0-70.0) H 12/23/20 14:09 Band Neutrophils % 4.0 % 12/23/20 14:09 Lymphocytes % (Manual) 3.0 % (13.4-35.0) L 12/23/20 14:09 Reactive Lymphs % (Man) 1.0 % 12/23/20 14:09 Monocytes % (Manual) 5.0 % (0.0-7.3) 12/23/20 14:09 Nucleated RBC % 1.0 % (0.0-0.9) H 12/23/20 14:09 Seg Neutrophils # 6.4 K/mm3 (1.8-7.7) 12/27/20 04:25 Seg Neutrophils # Man 1.6 K/mm3 (1.8-7.7) L 12/23/20 14:09 Band Neutrophils # 0.1 K/mm3 12/23/20 14:09 Lymphocytes # (Manual) 0.1 K/mm3 (1.2-5.4) L 12/23/20 14:09 Abs React Lymphs (Man) 0.0 K/mm3 12/23/20 14:09 Monocytes # (Manual) 0.1 K/mm3 (0.0-0.8) 12/23/20 14:09 Eosinophils # (Manual) 0.0 K/mm3 (0.0-0.4) 12/23/20 14:09 Basophils # (Manual) 0.0 K/mm3 (0.0-0.1) 12/23/20 14:09 Metamyelocytes # 0.0 K/mm3 12/23/20 14:09 Myelocytes # 0.0 K/mm3 12/23/20 14:09 Promyelocytes # 0.0 K/mm3 12/23/20 14:09 Blast Cells # 0.0 K/mm3 12/23/20 14:09 WBC Morphology Not Reportable 12/23/20 14:09 Hypersegmented Neuts Not Reportable 12/23/20 14:09 Hyposegmented Neuts Not Reportable 12/23/20 14:09 Hypogranular Neuts Not Reportable 12/23/20 14:09 Smudge Cells Not Reportable 12/23/20 14:09 Toxic Granulation Not Reportable 12/23/20 14:09 Toxic Vacuolation Not Reportable 12/23/20 14:09 Dohle Bodies Not Reportable 12/23/20 14:09 Pelger-Huet Anomaly Not Reportable 12/23/20 14:09 Jair Rods Not Reportable 12/23/20 14:09 Platelet Estimate Consistent w auto 12/23/20 14:09 Clumped Platelets Not Reportable 12/23/20 14:09 Plt Clumps, EDTA Not Reportable 12/23/20 14:09 Large Platelets Not Reportable 12/23/20 14:09 Giant Platelets Not Reportable 12/23/20 14:09 Platelet Satelliting Not Reportable 12/23/20 14:09 Plt Morphology Comment Not Reportable 12/23/20 14:09 RBC Morphology Normal 12/23/20 14:09 Dimorphic RBCs Not Reportable 12/23/20 14:09 Polychromasia Not Reportable 12/23/20 14:09 Hypochromasia Not Reportable 12/23/20 14:09 Poikilocytosis Not Reportable 12/23/20 14:09 Anisocytosis Not Reportable 12/23/20 14:09 Microcytosis Not Reportable 12/23/20 14:09 Macrocytosis Not Reportable 12/23/20 14:09 Spherocytes Not Reportable 12/23/20 14:09 Pappenheimer Bodies Not Reportable 12/23/20 14:09 Sickle Cells Not Reportable 12/23/20 14:09 Target Cells Not Reportable 12/23/20 14:09 Tear Drop Cells Not Reportable 12/23/20 14:09 Ovalocytes Not Reportable 12/23/20 14:09 Helmet Cells Not Reportable 12/23/20 14:09 [place] Bodies Not Reportable 12/23/20 14:09 Gill Rings Not Reportable 12/23/20 14:09 Ale Cells Not Reportable 12/23/20 14:09 Bite Cells Not Reportable 12/23/20 14:09 Crenated Cell Not Reportable 12/23/20 14:09 Elliptocytes Not Reportable 12/23/20 14:09 Acanthocytes (Spur) Not Reportable 12/23/20 14:09 Rouleaux Not Reportable 12/23/20 14:09 Hemoglobin C Crystals Not Reportable 12/23/20 14:09 Schistocytes Not Reportable 12/23/20 14:09 Malaria parasites Not Reportable 12/23/20 14:09 Giorgi Bodies Not Reportable 12/23/20 14:09 Hem Pathologist Commnt No 12/23/20 14:09 PT 13.1 Sec. (12.2-14.9) 12/21/20 05:50 INR 1.01 (0.87-1.13) 12/21/20 05:50 D-Dimer 4626.15 ng/mlDDU (0-234) H 12/28/20 15:43 ABG pH 7.454 (7.320-7.450) H 12/30/20 18:03 POC ABG pCO2 49.7 mmHg (32.0-48.0) H 12/30/20 18:03 POC ABG pO2 59.0 mmHg (83-108) L 12/30/20 18:03 POC ABG HCO3 34.1 12/30/20 18:03 ABG O2 Saturation 89.9 (0-100) 12/30/20 18:03 POC ABG Base Excess 8.7 12/30/20 18:03 ABG Hemoglobin 13.9 (12.0-17.5) 12/30/20 18:03 ABG Oxyhemoglobin 88.6 (94-98) L 12/30/20 18:03 ABG Methemoglobin 0.3 (0.0-1.5) 12/30/20 18:03 ABG Sodium 146.4 mmol/L (136.0-145.0) H 12/30/20 18:03 ABG Potassium 3.7 mmol/L (3.40-4.50) 12/30/20 18:03 ABG Chloride 105.0 mmol/L (98-107) 12/30/20 18:03 ABG Glucose 252 mg/dL (65-95) H 12/30/20 18:03 Carboxyhemoglobin 1.1 (0.5-1.5) 12/30/20 18:03 FiO2 % 85 12/30/20 18:03 Sodium 146 mmol/L (137-145) H 12/29/20 05:12 Potassium 4.8 mmol/L (3.6-5.0) 12/29/20 05:12 Chloride 104.8 mmol/L (98-107) 12/29/20 05:12 Carbon Dioxide 32 mmol/L (22-30) H 12/29/20 05:12 Anion Gap 14 mmol/L 12/29/20 05:12 BUN 34 mg/dL (7-17) H 12/29/20 05:12 Creatinine 0.9 mg/dL (0.6-1.2) 12/29/20 05:12 Estimated GFR > 60 ml/min 12/29/20 05:12 BUN/Creatinine Ratio 38 % 12/29/20 05:12 Glucose 126 mg/dL (65-100) H 12/29/20 05:12 POC Glucose 185 mg/dL (70-105) H 12/31/20 11:57 Hemoglobin A1c 10.3 % (4-6) H 12/21/20 05:50 Lactic Acid 1.40 mmol/L (0.7-2.0) 12/21/20 05:50 Calcium 8.8 mg/dL (8.4-10.2) 12/29/20 05:12 Magnesium 1.90 mg/dL (1.7-2.3) 12/26/20 04:29 Ferritin 1030.0 ng/mL (10.0-200.0) H 12/28/20 15:43 Total Bilirubin 0.30 mg/dL (0.1-1.2) 12/27/20 04:25 AST 31 units/L (5-40) 12/27/20 04:25 ALT 28 units/L (7-56) 12/27/20 04:25 Alkaline Phosphatase 242 units/L (35-129) H 12/27/20 04:25 Lactate Dehydrogenase 838 units/L (91-180) H 12/28/20 15:43 Troponin T < 0.010 ng/mL (0.00-0.029) 12/20/20 19:27 C-Reactive Protein 1.10 mg/dL (0.00-1.30) 12/28/20 15:43 Total Protein 7.3 g/dL (6.3-8.2) 12/27/20 04:25 Albumin 2.7 g/dL (3.9-5) L 12/27/20 04:25 Albumin/Globulin Ratio 0.6 % 12/27/20 04:25 Procalcitonin 0.07 ng/mL (<0.15) 12/26/20 11:08 Arterial Blood Glucose 252 mg/dL (65-95) H 12/30/20 18:03 Arterial Blood Ionized Calcium 4.5 mg/dL (4.6-5.3) L 12/30/20 18:03 Urine Color Yellow (Yellow) 12/22/20 03:00 Urine Turbidity Clear (Clear) 12/22/20 03:00 Urine pH 5.0 (5.0-7.0) 12/22/20 03:00 Ur Specific [place] 1.019 (1.003-1.030) 12/22/20 03:00 Urine Protein 100 mg/dl mg/dL (Negative) 12/22/20 03:00 Urine Glucose (UA) 50 mg/dL (Negative) 12/22/20 03:00 Urine Ketones Neg mg/dL (Negative) 12/22/20 03:00 Urine Blood Sm (Negative) 12/22/20 03:00 Urine Nitrite Neg (Negative) 12/22/20 03:00 Urine Bilirubin Neg (Negative) 12/22/20 03:00 Urine Urobilinogen 2.0 mg/dL (<2.0) 12/22/20 03:00 Ur Leukocyte Esterase Neg (Negative) 12/22/20 03:00 Urine WBC (Auto) 1.0 /HPF (0.0-6.0) 12/22/20 03:00 Urine RBC (Auto) 1.0 /HPF (0.0-6.0) 12/22/20 03:00 U Epithel Cells (Auto) 3.0 /HPF (0-13.0) 12/22/20 03:00 Urine Bacteria (Auto) 1+ /HPF (Negative) 12/22/20 03:00 Urine Mucus Few /HPF 12/22/20 03:00 Urine Eosinophils None seen (None Seen) 12/22/20 03:00 Urine Creatinine 117.9 mg/dL (0.1-20.0) H 12/22/20 03:00 Urine Sodium 67 mmol/L 12/22/20 03:00 Coronavirus (PCR) Positive (Negative) A 12/21/20 10:28 Hepatitis A IgM Ab Non-reactive (NonReactive) 12/22/20 06:00 Hep Bs Antigen Non-reactive (Negative) 12/22/20 06:00 Hep B Core IgM Ab Non-reactive (NonReactive) 12/22/20 06:00 Hepatitis C Antibody Non-reactive (NonReactive) 12/22/20 06:00 Curtis/IV: Voiding Method Indwelling Catheter Active Medications - Current Medications Current Medications: Generic Name Dose Route Start Last Admin Trade Name Freq PRN Reason Stop Dose Admin Acetaminophen 650 mg 12/20/20 23:15 12/24/20 09:40 Acetaminophen 325 Mg Tab PO 650 mg Q4H PRN Administration Pain MILD(1-3)/Fever >100.5/VARGAS Albuterol 2.5 mg 12/21/20 12:00 Albuterol 2.5 Mg/3 Ml Nebu IH Q4HRT PRN Shortness Of Breath Amlodipine Besylate 10 mg 12/26/20 14:00 12/31/20 09:06 Amlodipine 10 Mg Tab PO 10 mg QDAY TAMEKA Administration Dextrose 50 ml 12/20/20 23:15 Dextrose 50% In Water (25gm) 50 Ml Syringe IV Q30MIN PRN Hypoglycemia Protocol Enoxaparin Sodium 40 mg 12/21/20 22:00 12/30/20 21:53 Enoxaparin 40 Mg/0.4 Ml Inj SUB-Q 40 mg QDAY@2200 TAMEKA Administration Protocol Furosemide 40 mg 12/26/20 14:00 12/31/20 09:06 Furosemide 40 Mg/4 Ml Inj IV 40 mg QDAY TAMEKA Administration Gabapentin 800 mg 12/21/20 22:00 12/31/20 09:06 Gabapentin 400 Mg Cap PO 800 mg BID TAMEKA Administration Glipizide 10 mg 12/21/20 10:00 12/31/20 09:05 Glipizide 10 Mg Tab PO 10 mg BIDDIAB TAMEKA Administration Guaifenesin 200 mg 12/21/20 16:00 12/29/20 22:37 Guaifenesin 100 Mg/5 Ml Oral Liqd PO 200 mg Q4H PRN Administration Cough Dexmedetomidine HCl 400 mcg/ 104 mls @ 6.952 mls/hr 12/28/20 15:00 12/31/20 06:04 Sodium Chloride IV 0.2 mcg/kg/hr TITRATE TAMEKA 6.952 mls/hr Administration Protocol 0.2 MCG/KG/HR Insulin Human Isoph/Insulin Regular 25 unit 12/28/20 09:00 12/31/20 09:05 Insulin Nph/Regular 70/30 Inj SUB-Q 25 unit BIDDIAB TAMEKA Administration Insulin Human Lispro 0 unit 12/21/20 07:30 12/31/20 09:06 Insulin Lispro 100 Unit/Ml SUB-Q 3 unit ACHS TAMEKA Administration Protocol Lorazepam 0.5 mg 12/23/20 20:12 12/30/20 21:55 Lorazepam 2 Mg/Ml Vial IV 0.5 mg Q6H PRN Administration Anxiety Magnesium Hydroxide 30 ml 12/20/20 23:15 Magnesium Hydroxide (Mom) Oral Liqd Udc PO Q4H PRN Constipation Methylprednisolone Sodium Succinate 60 mg 12/29/20 18:00 12/31/20 06:02 Methylprednisolone Sod Succinate 125 Mg/2 Ml Inj IV 60 mg Q6HR TAMEKA Administration Morphine Sulfate 2 mg 12/20/20 23:15 12/25/20 22:10 Morphine 2 Mg/1 Ml Inj IV 2 mg Q4H PRN Administration Pain, Moderate (4-6) Ondansetron HCl 4 mg 12/20/20 23:15 Ondansetron 4 Mg/2 Ml Inj IV Q8H PRN Nausea And Vomiting Oxycodone/Acetaminophen 1 tab 12/21/20 16:00 12/27/20 22:49 Oxycodone /Acetaminophen 5-325mg Tab PO 1 tab Q6H PRN Administration Pain, Moderate (4-6) Sodium Chloride 10 ml 12/21/20 10:00 12/31/20 09:07 Sodium Chloride 0.9% 10 Ml Flush Syringe IV 10 ml BID TAMEKA Administration Sodium Chloride 10 ml 12/20/20 23:15 12/21/20 18:48 Sodium Chloride 0.9% 10 Ml Flush Syringe IV 10 ml PRN PRN Administration LINE FLUSH Sodium Chloride 1 applic 12/22/20 12:00 12/31/20 09:06 [place] Saline Nasal Gel 14.1 Gm NS 1 applic BID TAMEKA Administration Nutrition/Malnutrition Assess - Dietary Evaluation Nutrition/Malnutrition Findings: Nutrition Notes Start: 12/21/20 09:35 Freq: Status: Active Protocol: Document 12/31/20 11:20 MISHA (Rec: 12/31/20 11:25 MISHA [id number]) Co-Sign 12/31/20 11:20 CW Nutrition Notes Initial or Follow up Reassessment Current Diagnosis Diabetes,Hypertension, Respiratory Failure Other Pertinent Diagnosis pneu, COVID 19(+), SOB, Diabetic Neuropathy Current Diet Cardiac/Consistent CHO Labs/Tests No new labs Pertinent Medications Insulin Lasix Glipizide Solumedrol Height 5 ft 7 in Weight 131 kg [place] Body Weight (kg) 61.36 BMI 45.2 Weight change and time frame Wt change noted, pt on lasix Weight Status Morbidly Obese Subjective/Other Information F/U for intakes and ONS. Per RN, pt consumed 25% breakfast and 100% ONS. Pt consuming 50% meals on average and 100% ONS . Per chart, pt to be weaned off Bipap as tolerated. Percent of energy/protein needs met: 100%/100% (PO and ONS) Burn Absent Trauma Absent GI Symptoms None Current % PO Fair (50-74%) Minimum of two criteria No physical signs of malnutrition #1 Nutrition Diagnosis Inadequate oral intake Diagnosis Progress(for reassessment Continues documentation) Is patient on ventilator? No Is Patient Ambulatory and/or Out of Bed Yes REE-([place]-St. Jeor-ambulatory/OOB) [ 2518.919 [id number]] Kcal/Kg value to use for calculation 15 Approximate Energy Requirements Using 1965 kcal/Kg Calculation Used for Recommendations Kcal/kg Additional Notes PRO needs: 82-102g (0.8-1g/kg AdBW 102 kg) Fluid needs: 1 mL/kcal or per MD Nutrition Intervention Change Diet Order: Continue current diet as ordered Add Supplement/Snack (indicate name/kcal Nepro BID /protein ) Provides kCal: 850 Provides Protein (gm) 38 Goal #1 Meet at least 75% of energy and protein needs via diet and ONS Anticipated Discharge Needs: Cardiac/Consistent CHO Follow-Up By: 01/05/21 Additional Comments F/U for stable intakes, Bipap wean
--- NOTE | 2020-12-31 13:36 | Progress Note ---
Assessment and Plan Cultures: Blood culture no growth today SARS-CoV-2 PCR positive Assessment: 55-year-old female with history, diabetes mellitus, morbid obesity, admitted on 12/20/2020 secondary to a week history of cough, generalized malaise, fever, chills, progressive shortness of breath: #Acute sepsis: Likely secondary to severe COVID-19 pneumonia. #Severe COVID-19 pneumonia: Patient with underlying interstitial lung disease per CT report secondary hospital. Inflammatory markers elevated. D-dimer 260. Ferritin 1420. LDH 491. CRP 5.5. Chest x-ray with bilateral patchy infiltrates. Procalcitonin is slightly up in the setting of HOMA. #Acute hypoxemic respiratory failure: Worsening 100% FiO2 high flow nasal cannula and NR mask. #Elevated creatinine: Likely secondary to COVID-19. Improving. #Elevated LFTs: Likely secondary to COVID-19. Improving. #Neutropenia/thrombocytopenia: Likely secondary to COVID-19. Resolved Recommendations: -s/p tocilizumab -Completed Remdesivir -Completed ceftriaxone and azithromycin -Continue IV steroids per pulmonary -Monitor inflammatory markers - ferritin, Ddimer, CRP, LDH -Pulmonary on board -Continue anticoagulation per System Protocol -Prone positioning as possible ID will sign off. Please call with any questions Ambreen Mathew MD [facility] ([facility] O: [phone] F: [phone] Subjective Date of service: 12/31/20 Principal diagnosis: COVID-19 Interval history: Afebrile, normal white count. No change. Objective - Exam Narrative Exam: General appearance: Alert, on HFNC Eyes: anicteric sclerae, moist conjunctivae; no lid-lag; PERRLA HENT: Normocephalic, Atraumatic; normal external ears, nares open, oropharynx limited Neck: supple, tracheal midline, no JVD Lungs: Bilateral scattered crackles CV: Tachycardic Abdomen: Soft, non-tender obese Extremities: no edema, no cyanosis Skin: No rash. Psych: Anxious Neuro: alert and oriented x 3. Moving all extermities - Constitutional Vitals: Vital Signs Temp Pulse Resp BP Pulse Ox 97.5 F L 77 21 119/84 99 12/31/20 12:00 12/31/20 13:00 12/31/20 13:00 12/31/20 13:00 12/31/20 13:00 Temperature -Last 24 Hours Temperature 97.5 F Temperature 97.6 F Temperature 97.6 F Temperature 97.9 F Temperature 97.4 F Temperature 97.9 F - Labs CBC & Chem 7: 12/27/20 04:25 12/29/20 05:12 Labs: Abnormal lab results 12/30/20 12/30/20 12/30/20 Range/Units 16:29 18:03 23:13 ABG pH 7.454 H (7.320-7.450) POC ABG pCO2 49.7 H (32.0-48.0) mmHg POC ABG pO2 59.0 L (83-108) mmHg ABG Oxyhemoglobin 88.6 L (94-98) ABG Sodium 146.4 H (136.0-145.0) mmol/L ABG Glucose 252 H (65-95) mg/dL POC Glucose 229 H 188 H (70-105) mg/dL Arterial Blood Glucose 252 H (65-95) mg/dL Arterial Blood Ionized Calcium 4.5 L (4.6-5.3) mg/dL 12/31/20 12/31/20 Range/Units 08:43 11:57 ABG pH (7.320-7.450) POC ABG pCO2 (32.0-48.0) mmHg POC ABG pO2 (83-108) mmHg ABG Oxyhemoglobin (94-98) ABG Sodium (136.0-145.0) mmol/L ABG Glucose (65-95) mg/dL POC Glucose 191 H 185 H (70-105) mg/dL Arterial Blood Glucose (65-95) mg/dL Arterial Blood Ionized Calcium (4.6-5.3) mg/dL
[2020-12-31] MEDS: ENOXAPARIN 40 MG/0.4 ML INJ SUB-Q SCH (22:44)
[2020-12-31] MEDS: LORazepam 2 MG/ML VIAL IV PRN (22:47)
[2021-01-01] MEDS: methylPREDNISolone Sod Succinate 125 MG/2 ML INJ IV SCH ×5 (00:21→23:12)
[2021-01-01] MEDS: INSULIN LISPRO 100 UNIT/ML SUB-Q SCH ×5 (00:23→22:58)
[2021-01-01] MEDS: INSULIN NPH/REGULAR 70/30 INJ SUB-Q SCH ×2 (08:00→17:00)
[2021-01-01] MEDS: glipiZIDE 10 MG TAB PO SCH ×2 (08:00→17:00)
--- NOTE | 2021-01-01 08:23 | Progress Note ---
Assessment and Plan Assessment and plan: Pt did not tolerate HFNC 100% FIO2 and 40 L/M, SAT < 90%, placed back on BIPAP settings 20/12 100% as charted with SAT=94%. No distress noted. --COVID-19 test positive on 12/21/2020 --Acute hypoxic respiratory failure; Due to severe COVID-19 infection as well as Obesity hypoventilation syndrome Requiring BiPAP, full mask, Wean as tolerated, Prone positioning, pulmonary and ID following --Elevated D-dimers; due to COVID-19 CTA chest negative for PE lower extremity venous Doppler negative for DVT --Sepsis due to COVID-19 pneumonia Procalcitonin low, no need for antibiotics --Severe, COVID-19 infection;Guarded prognosis Completed remdesivir Received Tocilizumab Continue IV steroids Monitor inflammatory markers Prone positioning as tolerated Home oxygen evaluation prior to discharge Follow ID and pulmonary recommendations --Diabetes mellitus type 2; uncontrolled,A1c 10.3 Moderate control, Accu-Chek sliding scale coverage ADA diet and long-acting insulin Diabetic education, diabetic diet education when patient is more stable --Morbid obesity; BMI 46.2 Patient needs weight reduction when medically stable Patient needs outpatient pulmonary evaluation for sleep study to evaluate for JERMAINE Continue BiPAP --OHS/JERMAINE; due to morbid obesity Patient needs outpatient sleep study to rule out JERMAINE CPAP/BiPAP at night and as needed --Elevated LFTs probably Covid related; Present on admission, resolved today --DVT prophylaxis; Lovenox Closely monitor the patient and adjust the management as needed Junior Java Developer recommendations noted and appreciated Plan of care reviewed with the patient and her nurse Patient is critically ill with guarded prognosis Patient and family aware The high probability of a clinically significant, sudden or life threatening deterioration of the [multi] system(s) required my full and direct attention, intervention and personal management. The aggregate critical care time was [35] minutes. This time is in addition to time spent performing reported procedures but includes the following: [x] Data Review and interpretation [x] Patient assessment and monitoring of vital signs [x] Documentation [x] Medication orders and management Brief history and daily patient care; Morbidly obese 55 y/o -Luxembourger female patient past medical history of ILD on CT scan[per [place] records] was admitted with worsening shortness of breath noted to have severe COVID-19 pneumonia. With acute hypoxic respiratory failure, BiPAP dependent. ID pulmonary following 12/21/2020. Follow-up COVID-19 testing. Continue to trend inflammatory markers. Continue dexamethasone. ID and pulmonary consultation pending. Patient currently with 6 L/min O2 FiO2 44%. 12/22/2020. COVID-19 testing found to be positive. Continue to trend inflammatory markers. Continue dexamethasone. Patient requiring more oxygen with high flow nasal cannula 30 L/min and FiO2 100%. ID and pulmonary following. 12/23/2020. Patient with increasing oxygen requirements with high flow nasal cannula 40 L/min with FiO2 100%. Continue dexamethasone per ID recommendations. We will transfer to IM for closer monitoring. 12/24/2020. Patient was transferred to IM for closer monitoring yesterday. Patient currently requiring BiPAP with IPAP 16 and EPAP of 8 with FiO2 100%. Co ntinue dexamethasone and remdesivir. Continue to trend inflammatory markers. Continue anticoagulation. Prone position as possible. Continue ceftriaxone and azithromycin per ID recommendations. 12/25/2020. Patient currently requiring BiPAP with IPAP 16 and EPAP of 8 with FiO2 100%. Continue IV steroids of Solu-Medrol 60 mg every 8 hour and remdesivir. Continue to trend inflammatory markers. Continue anticoagulation with Lovenox. Prone position as possible. Continue ceftriaxone and azith romycin per ID recommendations. Prognosis is guarded. 12/26/2020 BG not controlled with glipizide. Start Lantus at bedtime for BG control. Elevated BG likely secondary to IV steroid. Patient currently requiring BiPAP with IPAP 18 and EPAP of 10 with FiO2 100%. Continue IV steroids of Solu-Medrol 60 mg every 8 hour and remdesivir. Continue to trend inflammatory markers. Continue anticoagulation with Lovenox. Prone position as possible. Continue ceftriaxone and azithromycin per ID recommendations. Prognosis is guarded. 12/27/2020. Blood glucose is improved but not optimal. Therefore, increase Lantus to 14 units at bedtime. Elevated BG likely secondary to IV steroid. Patient currently requiring BiPAP with IPAP 18 and EPAP of 10 with FiO2 100%. Continue IV steroids of Solu-Medrol 60 mg every 8 hour and remdesivir. Continue to trend inflammatory markers. Continue anticoagulation with Lovenox. Prone position as possible. Continue ceftriaxone and azithromycin per ID recom mendations. Prognosis is guarded. 12/28/2020; patient's blood sugars are uncontrolled, secondary to noncompliance, partly due to high-dose steroids Patient remains hypoxic on continuous BiPAP Switch to 70/30 Novolin 20 units twice a day adjust as needed Patient's A1c 10.3, diabetic education nutrition education 12/29/2020; patient continues to be hypoxemic requiring continuous BiPAP Worsening D-dimers, CTA negative for PE, venous Doppler negative DVT 12/30/2020; patient continues to require continuous BiPAP Wean as tolerated, patient is critically ill with poor prognosis Junior Java Developer recommendations noted and appreciated 12/31/2020; patient is on BiPAP Wean as tolerated, continue nebulizers IV steroids And other supportive care Pulmonary and ID recommendations noted and appreciated 01/01/2021; patient on continuous BiPAP 100% FiO2 Did not tolerate high flow nasal cannula 40 L History Interval history: I have seen and examined the patient at the bedside Patient's chart and medications reviewed Strict isolation precautions, PPE protocols observed per COVID-19 guidelines Throughout my evaluation of the patient Patient is on continuous BiPAP Unable to tolerate high flow nasal cannula oxygen In mild distress Noted Hospitalist Physical - Constitutional Vitals: Temp Pulse Resp BP Pulse Ox 98.6 F 74 22 126/95 97 01/01/21 04:00 01/01/21 07:53 01/01/21 07:53 01/01/21 07:53 01/01/21 07:53 General appearance: Present: mild distress, well-nourished, obese (Morbidly obese), other (On continuous BiPAP) - EENT Eyes: Present: PERRL, EOM intact - Neck Neck: Present: supple, normal ROM - Respiratory Respiratory effort: normal Respiratory: bilateral: diminished, rhonchi, negative: rales, wheezing - Cardiovascular Rhythm: regular Heart Sounds: Present: S1 & S2 - Extremities Extremities: no ischemia, No edema, abnormal (Obese) - Abdominal General gastrointestinal: soft, non-tender, non-distended, normal bowel sounds - Integumentary Integumentary: Present: clear, warm - Psychiatric Psychiatric: appropriate mood/affect, cooperative - Neurologic Neurologic: CNII-XII intact, moves all extremities HEART Score - HEART Score Troponin: Troponin T < 0.010 ng/mL (0.00-0.029) 12/20/20 19:27 Results - Labs CBC & Chem 7: 12/27/20 04:25 12/29/20 05:12 Labs: Laboratory Last Values WBC 7.5 K/mm3 (4.5-11.0) 12/27/20 04:25 RBC 4.05 M/mm3 (3.65-5.03) 12/27/20 04:25 Hgb 13.1 gm/dl (10.1-14.3) 12/27/20 04:25 Hct 38.8 % (30.3-42.9) D 12/27/20 04:25 MCV 96 fl (79-97) 12/27/20 04:25 MCH 32 pg (28-32) 12/27/20 04:25 MCHC 34 % (30-34) 12/27/20 04:25 RDW 13.7 % (13.2-15.2) 12/27/20 04:25 Plt Count 230 K/mm3 (140-440) 12/27/20 04:25 Lymph % (Auto) 6.4 % (13.4-35.0) L 12/27/20 04:25 Kay % (Auto) 7.5 % (0.0-7.3) H 12/27/20 04:25 Eos % (Auto) 0.0 % (0.0-4.3) 12/27/20 04:25 Baso % (Auto) 0.2 % (0.0-1.8) 12/27/20 04:25 Lymph # (Auto) 0.5 K/mm3 (1.2-5.4) L 12/27/20 04:25 Kay # (Auto) 0.6 K/mm3 (0.0-0.8) 12/27/20 04:25 Eos # (Auto) 0.0 K/mm3 (0.0-0.4) 12/27/20 04:25 Baso # (Auto) 0.0 K/mm3 (0.0-0.1) 12/27/20 04:25 Add Manual Diff Complete 12/23/20 14:09 Total Counted 100 12/23/20 14:09 Seg Neutrophils % 85.9 % (40.0-70.0) H 12/27/20 04:25 Seg Neuts % (Manual) 87.0 % (40.0-70.0) H 12/23/20 14:09 Band Neutrophils % 4.0 % 12/23/20 14:09 Lymphocytes % (Manual) 3.0 % (13.4-35.0) L 12/23/20 14:09 Reactive Lymphs % (Man) 1.0 % 12/23/20 14:09 Monocytes % (Manual) 5.0 % (0.0-7.3) 12/23/20 14:09 Nucleated RBC % 1.0 % (0.0-0.9) H 12/23/20 14:09 Seg Neutrophils # 6.4 K/mm3 (1.8-7.7) 12/27/20 04:25 Seg Neutrophils # Man 1.6 K/mm3 (1.8-7.7) L 12/23/20 14:09 Band Neutrophils # 0.1 K/mm3 12/23/20 14:09 Lymphocytes # (Manual) 0.1 K/mm3 (1.2-5.4) L 12/23/20 14:09 Abs React Lymphs (Man) 0.0 K/mm3 12/23/20 14:09 Monocytes # (Manual) 0.1 K/mm3 (0.0-0.8) 12/23/20 14:09 Eosinophils # (Manual) 0.0 K/mm3 (0.0-0.4) 12/23/20 14:09 Basophils # (Manual) 0.0 K/mm3 (0.0-0.1) 12/23/20 14:09 Metamyelocytes # 0.0 K/mm3 12/23/20 14:09 Myelocytes # 0.0 K/mm3 12/23/20 14:09 Promyelocytes # 0.0 K/mm3 12/23/20 14:09 Blast Cells # 0.0 K/mm3 12/23/20 14:09 WBC Morphology Not Reportable 12/23/20 14:09 Hypersegmented Neuts Not Reportable 12/23/20 14:09 Hyposegmented Neuts Not Reportable 12/23/20 14:09 Hypogranular Neuts Not Reportable 12/23/20 14:09 Smudge Cells Not Reportable 12/23/20 14:09 Toxic Granulation Not Reportable 12/23/20 14:09 Toxic Vacuolation Not Reportable 12/23/20 14:09 Dohle Bodies Not Reportable 12/23/20 14:09 Pelger-Huet Anomaly Not Reportable 12/23/20 14:09 Jair Rods Not Reportable 12/23/20 14:09 Platelet Estimate Consistent w auto 12/23/20 14:09 Clumped Platelets Not Reportable 12/23/20 14:09 Plt Clumps, EDTA Not Reportable 12/23/20 14:09 Large Platelets Not Reportable 12/23/20 14:09 Giant Platelets Not Reportable 12/23/20 14:09 Platelet Satelliting Not Reportable 12/23/20 14:09 Plt Morphology Comment Not Reportable 12/23/20 14:09 RBC Morphology Normal 12/23/20 14:09 Dimorphic RBCs Not Reportable 12/23/20 14:09 Polychromasia Not Reportable 12/23/20 14:09 Hypochromasia Not Reportable 12/23/20 14:09 Poikilocytosis Not Reportable 12/23/20 14:09 Anisocytosis Not Reportable 12/23/20 14:09 Microcytosis Not Reportable 12/23/20 14:09 Macrocytosis Not Reportable 12/23/20 14:09 Spherocytes Not Reportable 12/23/20 14:09 Pappenheimer Bodies Not Reportable 12/23/20 14:09 Sickle Cells Not Reportable 12/23/20 14:09 Target Cells Not Reportable 12/23/20 14:09 Tear Drop Cells Not Reportable 12/23/20 14:09 Ovalocytes Not Reportable 12/23/20 14:09 Helmet Cells Not Reportable 12/23/20 14:09 [place] Bodies Not Reportable 12/23/20 14:09 [place] Rings Not Reportable 12/23/20 14:09 Ale Cells Not Reportable 12/23/20 14:09 Bite Cells Not Reportable 12/23/20 14:09 Crenated Cell Not Reportable 12/23/20 14:09 Elliptocytes Not Reportable 12/23/20 14:09 Acanthocytes (Spur) Not Reportable 12/23/20 14:09 Rouleaux Not Reportable 12/23/20 14:09 Hemoglobin C Crystals Not Reportable 12/23/20 14:09 Schistocytes Not Reportable 12/23/20 14:09 Malaria parasites Not Reportable 12/23/20 14:09 Giorgi Bodies Not Reportable 12/23/20 14:09 Hem Pathologist Commnt No 12/23/20 14:09 PT 13.1 Sec. (12.2-14.9) 12/21/20 05:50 INR 1.01 (0.87-1.13) 12/21/20 05:50 D-Dimer 4626.15 ng/mlDDU (0-234) H 12/28/20 15:43 ABG pH 7.454 (7.320-7.450) H 12/30/20 18:03 POC ABG pCO2 49.7 mmHg (32.0-48.0) H 12/30/20 18:03 POC ABG pO2 59.0 mmHg (83-108) L 12/30/20 18:03 POC ABG HCO3 34.1 12/30/20 18:03 ABG O2 Saturation 89.9 (0-100) 12/30/20 18:03 POC ABG Base Excess 8.7 12/30/20 18:03 ABG Hemoglobin 13.9 (12.0-17.5) 12/30/20 18:03 ABG Oxyhemoglobin 88.6 (94-98) L 12/30/20 18:03 ABG Methemoglobin 0.3 (0.0-1.5) 12/30/20 18:03 ABG Sodium 146.4 mmol/L (136.0-145.0) H 12/30/20 18:03 ABG Potassium 3.7 mmol/L (3.40-4.50) 12/30/20 18:03 ABG Chloride 105.0 mmol/L (98-107) 12/30/20 18:03 ABG Glucose 252 mg/dL (65-95) H 12/30/20 18:03 Carboxyhemoglobin 1.1 (0.5-1.5) 12/30/20 18:03 FiO2 % 85 12/30/20 18:03 Sodium 146 mmol/L (137-145) H 12/29/20 05:12 Potassium 4.8 mmol/L (3.6-5.0) 12/29/20 05:12 Chloride 104.8 mmol/L (98-107) 12/29/20 05:12 Carbon Dioxide 32 mmol/L (22-30) H 12/29/20 05:12 Anion Gap 14 mmol/L 12/29/20 05:12 BUN 34 mg/dL (7-17) H 12/29/20 05:12 Creatinine 0.9 mg/dL (0.6-1.2) 12/29/20 05:12 Estimated GFR > 60 ml/min 12/29/20 05:12 BUN/Creatinine Ratio 38 % 12/29/20 05:12 Glucose 126 mg/dL (65-100) H 12/29/20 05:12 POC Glucose 136 mg/dL (70-105) H 12/31/20 21:37 Hemoglobin A1c 10.3 % (4-6) H 12/21/20 05:50 Lactic Acid 1.40 mmol/L (0.7-2.0) 12/21/20 05:50 Calcium 8.8 mg/dL (8.4-10.2) 12/29/20 05:12 Magnesium 1.90 mg/dL (1.7-2.3) 12/26/20 04:29 Ferritin 1030.0 ng/mL (10.0-200.0) H 12/28/20 15:43 Total Bilirubin 0.30 mg/dL (0.1-1.2) 12/27/20 04:25 AST 31 units/L (5-40) 12/27/20 04:25 ALT 28 units/L (7-56) 12/27/20 04:25 Alkaline Phosphatase 242 units/L (35-129) H 12/27/20 04:25 Lactate Dehydrogenase 838 units/L (91-180) H 12/28/20 15:43 Troponin T < 0.010 ng/mL (0.00-0.029) 12/20/20 19:27 C-Reactive Protein 1.10 mg/dL (0.00-1.30) 12/28/20 15:43 Total Protein 7.3 g/dL (6.3-8.2) 12/27/20 04:25 Albumin 2.7 g/dL (3.9-5) L 12/27/20 04:25 Albumin/Globulin Ratio 0.6 % 12/27/20 04:25 Procalcitonin 0.07 ng/mL (<0.15) 12/26/20 11:08 Arterial Blood Glucose 252 mg/dL (65-95) H 12/30/20 18:03 Arterial Blood Ionized Calcium 4.5 mg/dL (4.6-5.3) L 12/30/20 18:03 Urine Color Yellow (Yellow) 12/22/20 03:00 Urine Turbidity Clear (Clear) 12/22/20 03:00 Urine pH 5.0 (5.0-7.0) 12/22/20 03:00 Ur Specific [place] 1.019 (1.003-1.030) 12/22/20 03:00 Urine Protein 100 mg/dl mg/dL (Negative) 12/22/20 03:00 Urine Glucose (UA) 50 mg/dL (Negative) 12/22/20 03:00 Urine Ketones Neg mg/dL (Negative) 12/22/20 03:00 Urine Blood Sm (Negative) 12/22/20 03:00 Urine Nitrite Neg (Negative) 12/22/20 03:00 Urine Bilirubin Neg (Negative) 12/22/20 03:00 Urine Urobilinogen 2.0 mg/dL (<2.0) 12/22/20 03:00 Ur Leukocyte Esterase Neg (Negative) 12/22/20 03:00 Urine WBC (Auto) 1.0 /HPF (0.0-6.0) 12/22/20 03:00 Urine RBC (Auto) 1.0 /HPF (0.0-6.0) 12/22/20 03:00 U Epithel Cells (Auto) 3.0 /HPF (0-13.0) 12/22/20 03:00 Urine Bacteria (Auto) 1+ /HPF (Negative) 12/22/20 03:00 Urine Mucus Few /HPF 12/22/20 03:00 Urine Eosinophils None seen (None Seen) 12/22/20 03:00 Urine Creatinine 117.9 mg/dL (0.1-20.0) H 12/22/20 03:00 Urine Sodium 67 mmol/L 12/22/20 03:00 Coronavirus (PCR) Positive (Negative) A 12/21/20 10:28 Hepatitis A IgM Ab Non-reactive (NonReactive) 12/22/20 06:00 Hep Bs Antigen Non-reactive (Negative) 12/22/20 06:00 Hep B Core IgM Ab Non-reactive (NonReactive) 12/22/20 06:00 Hepatitis C Antibody Non-reactive (NonReactive) 12/22/20 06:00 Curtis/IV: Voiding Method Indwelling Catheter Active Medications - Current Medications Current Medications: Generic Name Dose Route Start Last Admin Trade Name Freq PRN Reason Stop Dose Admin Acetaminophen 650 mg 12/20/20 23:15 12/24/20 09:40 Acetaminophen 325 Mg Tab PO 650 mg Q4H PRN Administration Pain MILD(1-3)/Fever >100.5/VARGAS Albuterol 2.5 mg 12/21/20 12:00 Albuterol 2.5 Mg/3 Ml Nebu IH Q4HRT PRN Shortness Of Breath Amlodipine Besylate 10 mg 12/26/20 14:00 12/31/20 09:06 Amlodipine 10 Mg Tab PO 10 mg QDAY TAMEKA Administration Dextrose 50 ml 12/20/20 23:15 Dextrose 50% In Water (25gm) 50 Ml Syringe IV Q30MIN PRN Hypoglycemia Protocol Enoxaparin Sodium 40 mg 12/21/20 22:00 12/31/20 22:44 Enoxaparin 40 Mg/0.4 Ml Inj SUB-Q 40 mg QDAY@2200 TAMEKA Administration Protocol Furosemide 40 mg 12/26/20 14:00 12/31/20 09:06 Furosemide 40 Mg/4 Ml Inj IV 40 mg QDAY TAMEKA Administration Gabapentin 800 mg 12/21/20 22:00 12/31/20 22:45 Gabapentin 400 Mg Cap PO 800 mg BID TAMEKA Administration Glipizide 10 mg 12/21/20 10:00 12/31/20 17:16 Glipizide 10 Mg Tab PO 10 mg BIDDIAB TAMEKA Administration Guaifenesin 200 mg 12/21/20 16:00 12/29/20 22:37 Guaifenesin 100 Mg/5 Ml Oral Liqd PO 200 mg Q4H PRN Administration Cough Dexmedetomidine HCl 400 mcg/ 104 mls @ 6.952 mls/hr 12/28/20 15:00 12/31/20 22:41 Sodium Chloride IV 0.2 mcg/kg/hr TITRATE TAMEKA 6.952 mls/hr Administration Protocol 0.2 MCG/KG/HR Insulin Human Isoph/Insulin Regular 25 unit 12/28/20 09:00 12/31/20 17:17 Insulin Nph/Regular 70/30 Inj SUB-Q 25 unit BIDDIAB TAMEKA Administration Insulin Human Lispro 0 unit 12/21/20 07:30 01/01/21 00:23 Insulin Lispro 100 Unit/Ml SUB-Q Not Given ACHS [facility] Protocol Lorazepam 0.5 mg 12/23/20 20:12 12/31/20 22:47 Lorazepam 2 Mg/Ml Vial IV 0.5 mg Q6H PRN Administration Anxiety Magnesium Hydroxide 30 ml 12/20/20 23:15 Magnesium Hydroxide (Mom) Oral Liqd Udc PO Q4H PRN Constipation Methylprednisolone Sodium Succinate 60 mg 12/29/20 18:00 01/01/21 05:17 Methylprednisolone Sod Succinate 125 Mg/2 Ml Inj IV 60 mg Q6HR TAMEKA Administration Morphine Sulfate 2 mg 12/20/20 23:15 12/25/20 22:10 Morphine 2 Mg/1 Ml Inj IV 2 mg Q4H PRN Administration Pain, Moderate (4-6) Ondansetron HCl 4 mg 12/20/20 23:15 Ondansetron 4 Mg/2 Ml Inj IV Q8H PRN Nausea And Vomiting Oxycodone/Acetaminophen 1 tab 12/21/20 16:00 12/27/20 22:49 Oxycodone /Acetaminophen 5-325mg Tab PO 1 tab Q6H PRN Administration Pain, Moderate (4-6) Sodium Chloride 10 ml 12/21/20 10:00 12/31/20 22:46 Sodium Chloride 0.9% 10 Ml Flush Syringe IV 10 ml BID TAMEKA Administration Sodium Chloride 10 ml 12/20/20 23:15 12/21/20 18:48 Sodium Chloride 0.9% 10 Ml Flush Syringe IV 10 ml PRN PRN Administration LINE FLUSH Sodium Chloride 1 applic 12/22/20 12:00 12/31/20 22:44 Martin Saline Nasal Gel 14.1 Gm NS 1 applic BID TAMEKA Administration Nutrition/Malnutrition Assess - Dietary Evaluation Nutrition/Malnutrition Findings: Nutrition Notes Start: 12/21/20 09:35 Freq: Status: Active Protocol: Document 12/31/20 11:20 MISHA (Rec: 12/31/20 11:25 MISHA [id number]) Co-Sign 12/31/20 11:20 CW Nutrition Notes Initial or Follow up Reassessment Current Diagnosis Diabetes,Hypertension, Respiratory Failure Other Pertinent Diagnosis pneu, COVID 19(+), SOB, Diabetic Neuropathy Current Diet Cardiac/Consistent CHO Labs/Tests No new labs Pertinent Medications Insulin Lasix Glipizide Solumedrol Height 5 ft 7 in Weight 131 kg [place] Body Weight (kg) 61.36 BMI 45.2 Weight change and time frame Wt change noted, pt on lasix Weight Status Morbidly Obese Subjective/Other Information F/U for intakes and ONS. Per RN, pt consumed 25% breakfast and 100% ONS. Pt consuming 50% meals on average and 100% ONS . Per chart, pt to be weaned off Bipap as tolerated. Percent of energy/protein needs met: 100%/100% (PO and ONS) Burn Absent Trauma Absent GI Symptoms None Current % PO Fair (50-74%) Minimum of two criteria No physical signs of malnutrition #1 Nutrition Diagnosis Inadequate oral intake Diagnosis Progress(for reassessment Continues documentation) Is patient on ventilator? No Is Patient Ambulatory and/or Out of Bed Yes REE-([facility]-ambulatory/OOB) [ 2518.919 [id number]] Kcal/Kg value to use for calculation 15 Approximate Energy Requirements Using 1965 kcal/Kg Calculation Used for Recommendations Kcal/kg Additional Notes PRO needs: 77-96g (0.8-1g/kg AdBW 96 kg) Fluid needs: 1 mL/kcal or per MD Nutrition Intervention Change Diet Order: Continue current diet as ordered Add Supplement/Snack (indicate name/kcal Nepro BID /protein ) Provides kCal: 850 Provides Protein (gm) 38 Goal #1 Meet at least 75% of energy and protein needs via diet and ONS Anticipated Discharge Needs: Cardiac/Consistent CHO Follow-Up By: 01/04/21 Additional Comments F/U for stable intakes, Bipap wean
[2021-01-01] MEDS: AYR SALINE NASAL GEL 14.1 GM NS SCH ×2 (10:00→21:13)
[2021-01-01] MEDS: GABAPENTIN 400 MG CAP PO SCH ×2 (10:00→21:01)
[2021-01-01] MEDS: amLODIPine 10 MG TAB PO SCH (10:00)
[2021-01-01] MEDS: FUROSEMIDE 40 MG/4 ML INJ IV SCH (10:00)
--- NOTE | 2021-01-01 12:29 | Progress Note ---
Assessment and Plan 55 y/o female with acute respiratory failure secondary to cOVID 19 with prior history of ILD on a CT in [facility] 01/01/21: Unfortunately, given her high risk for intubation, patient will not be able to eat. Nutrition has been an issue and we will discuss this on rounds. May need PPN. Continue steroids at current dosing. Will give an additional dose of lasix tonight. 12/31/20: will continue steroids today as same dose and frequency. No changes to lasix therapy. Need to keep patient as calm as possible to allow bipap to work to avoid intubation at all costs. Prognosis still remains guarded. 12/30/20: Continue steroids at 60q6. Continue daily lasix. may need to consider BID dosing to help with more volume removal if renal function will permit. Overall prognosis is very very guarded to poor, especially if the pa tient ends up on the mechanical ventilator. 12/29/20: Will increase steroids to q6 hour dosing to see if this helps. Prognosis is very very guarded. 12/28/20: Continue steroids and lasix, may need to ask renal about BID dosing for a few days to see if this will help. Prone as tolerated during the day and sleep prone at night. 1. Agree with change in steroids to solumedrol 60q8, will continue for now 2. Agree with daily lasix but goal should be daily net negative state. 3. Prone as tolerated during the day and sleep prone at night 4. Guarded prognosis Subjective Date of service: 01/01/21 Principal diagnosis: COVID-19 Interval history: Patient wanting to eat but desats very quickly off bipap. Remains on Precedex. Objective Vital Signs - 12hr 01/01/21 01/01/21 01/01/21 01:00 02:00 03:00 Temperature Pulse Rate 73 74 70 Pulse Rate [ From Monitor] Respiratory 20 20 19 Rate Blood Pressure 122/66 122/71 111/68 O2 Sat by Pulse 97 96 96 Oximetry 01/01/21 01/01/21 01/01/21 03:49 04:00 05:00 Temperature 98.6 F Pulse Rate 71 70 76 Pulse Rate [ 70 From Monitor] Respiratory 27 H 19 22 Rate Blood Pressure 120/70 122/82 O2 Sat by Pulse 96 96 97 Oximetry 01/01/21 01/01/21 01/01/21 06:00 07:53 11:12 Temperature Pulse Rate 72 74 90 Pulse Rate [ From Monitor] Respiratory 21 22 35 H Rate Blood Pressure 137/87 126/95 143/90 O2 Sat by Pulse 97 97 91 Oximetry Constitutional: no acute distress, alert (obese), other (on BIPAP) Eyes: non-icteric ENT: oropharynx moist Neck: supple Effort: normal Ascultation: Bilateral: clear, diminished breath sounds (anteriorly) Cardiovascular: regular rate and rhythm (no mrg) Gastrointestinal: normoactive bowel sounds, soft, non-tender, non-distended Integumentary: normal Extremities: no cyanosis, no edema, pink and warm Neurologic: normal mental status, non-focal exam Psychiatric: mood appropriate, affect normal CBC and BMP: 12/27/20 04:25 12/29/20 05:12 ABG, PT/INR, D-dimer: ABG ABG pH 7.454 (7.320-7.450) H 12/30/20 18:03 POC ABG pCO2 49.7 mmHg (32.0-48.0) H 12/30/20 18:03 POC ABG pO2 59.0 mmHg (83-108) L 12/30/20 18:03 POC ABG HCO3 34.1 12/30/20 18:03 ABG O2 Saturation 89.9 (0-100) 12/30/20 18:03 PT/INR, D-dimer PT 13.1 Sec. (12.2-14.9) 12/21/20 05:50 INR 1.01 (0.87-1.13) 12/21/20 05:50 D-Dimer 4626.15 ng/mlDDU (0-234) H 12/28/20 15:43 Abnormal lab findings: Abnormal Labs 12/20/20 12/20/20 12/20/20 19:27 19:27 19:27 WBC 2.9 L RBC MCHC Plt Count 116 L Lymph % (Auto) 41.2 H [place] % (Auto) 13.2 H Lymph # (Auto) Seg Neutrophils % Seg Neuts % (Manual) Lymphocytes % (Manual) Nucleated RBC % Seg Neutrophils # 1.3 L Seg Neutrophils # Man Lymphocytes # (Manual) D-Dimer 260.58 H ABG pH POC ABG pCO2 POC ABG pO2 ABG Oxyhemoglobin ABG Sodium ABG Glucose Sodium 135 L Potassium Chloride 96.1 L Carbon Dioxide BUN 23 H Creatinine 1.4 H Glucose 295 H POC Glucose Hemoglobin A1c Calcium 8.3 L Ferritin AST 125 H ALT 96 H Alkaline Phosphatase 323 H Lactate Dehydrogenase C-Reactive Protein Total Protein 8.7 H Albumin 3.7 L Arterial Blood Glucose Arterial Blood Ionized Calcium Urine Creatinine Coronavirus (PCR) 12/20/20 12/20/20 12/21/20 19:43 19:43 05:50 WBC RBC MCHC Plt Count Lymph % (Auto) [place] % (Auto) Lymph # (Auto) Seg Neutrophils % Seg Neuts % (Manual) Lymphocytes % (Manual) Nucleated RBC % Seg Neutrophils # Seg Neutrophils # Man Lymphocytes # (Manual) D-Dimer ABG pH POC ABG pCO2 POC ABG pO2 ABG Oxyhemoglobin ABG Sodium ABG Glucose Sodium Potassium Chloride Carbon Dioxide BUN Creatinine Glucose 297 H POC Glucose Hemoglobin A1c 10.3 H Calcium Ferritin 1420.0 H AST ALT Alkaline Phosphatase Lactate Dehydrogenase 491 H C-Reactive Protein 5.50 H Total Protein Albumin Arterial Blood Glucose Arterial Blood Ionized Calcium Urine Creatinine Coronavirus (PCR) 12/21/20 12/21/20 12/21/20 05:50 05:50 08:04 WBC 1.6 L* RBC 3.40 L MCHC Plt Count 104 L Lymph % (Auto) [place] % (Auto) Lymph # (Auto) Seg Neutrophils % Seg Neuts % (Manual) 82.0 H Lymphocytes % (Manual) Nucleated RBC % Seg Neutrophils # Seg Neutrophils # Man 1.3 L Lymphocytes # (Manual) 0.3 L D-Dimer ABG pH POC ABG pCO2 POC ABG pO2 ABG Oxyhemoglobin ABG Sodium ABG Glucose Sodium 132 L Potassium 5.7 H D Chloride 95.7 L Carbon Dioxide BUN 33 H Creatinine 1.7 H Glucose 500 H POC Glucose 483 H Hemoglobin A1c Calcium 7.7 L Ferritin AST ALT Alkaline Phosphatase Lactate Dehydrogenase C-Reactive Protein Total Protein Albumin Arterial Blood Glucose Arterial Blood Ionized Calcium Urine Creatinine Coronavirus (PCR) 12/21/20 12/21/20 12/21/20 10:28 12:05 16:54 WBC RBC MCHC Plt Count Lymph % (Auto) [place] % (Auto) Lymph # (Auto) Seg Neutrophils % Seg Neuts % (Manual) Lymphocytes % (Manual) Nucleated RBC % Seg Neutrophils # Seg Neutrophils # Man Lymphocytes # (Manual) D-Dimer ABG pH POC ABG pCO2 POC ABG pO2 ABG Oxyhemoglobin ABG Sodium ABG Glucose Sodium Potassium Chloride Carbon Dioxide BUN Creatinine Glucose POC Glucose 482 H 374 H Hemoglobin A1c Calcium Ferritin AST ALT Alkaline Phosphatase Lactate Dehydrogenase C-Reactive Protein Total Protein Albumin Arterial Blood Glucose Arterial Blood Ionized Calcium Urine Creatinine Coronavirus (PCR) Positive A 12/21/20 12/21/20 12/22/20 18:24 22:12 03:00 WBC RBC MCHC Plt Count Lymph % (Auto) [place] % (Auto) Lymph # (Auto) Seg Neutrophils % Seg Neuts % (Manual) Lymphocytes % (Manual) Nucleated RBC % Seg Neutrophils # Seg Neutrophils # Man Lymphocytes # (Manual) D-Dimer ABG pH POC ABG pCO2 POC ABG pO2 ABG Oxyhemoglobin ABG Sodium ABG Glucose Sodium 131 L Potassium Chloride 95.2 L Carbon Dioxide BUN 37 H Creatinine 1.4 H Glucose 417 H POC Glucose 358 H Hemoglobin A1c Calcium 7.5 L Ferritin AST 82 H ALT 69 H Alkaline Phosphatase 262 H Lactate Dehydrogenase C-Reactive Protein Total Protein Albumin 3.0 L Arterial Blood Glucose Arterial Blood Ionized Calcium Urine Creatinine 117.9 H Coronavirus (PCR) 12/22/20 12/22/20 12/22/20 05:29 08:19 11:18 WBC RBC MCHC Plt Count Lymph % (Auto) [place] % (Auto) Lymph # (Auto) Seg Neutrophils % Seg Neuts % (Manual) Lymphocytes % (Manual) Nucleated RBC % Seg Neutrophils # Seg Neutrophils # Man Lymphocytes # (Manual) D-Dimer ABG pH POC ABG pCO2 POC ABG pO2 ABG Oxyhemoglobin ABG Sodium ABG Glucose Sodium Potassium Chloride Carbon Dioxide BUN 34 H Creatinine 1.3 H Glucose 169 H POC Glucose 136 H 132 H Hemoglobin A1c Calcium 7.5 L Ferritin AST 74 H ALT 60 H Alkaline Phosphatase 249 H Lactate Dehydrogenase C-Reactive Protein Total Protein Albumin 3.1 L Arterial Blood Glucose Arterial Blood Ionized Calcium Urine Creatinine Coronavirus (PCR) 12/22/20 12/22/20 12/22/20 14:18 14:18 16:36 WBC RBC MCHC Plt Count Lymph % (Auto) [place] % (Auto) Lymph # (Auto) Seg Neutrophils % Seg Neuts % (Manual) Lymphocytes % (Manual) Nucleated RBC % Seg Neutrophils # Seg Neutrophils # Man Lymphocytes # (Manual) D-Dimer ABG pH POC ABG pCO2 POC ABG pO2 ABG Oxyhemoglobin ABG Sodium ABG Glucose Sodium Potassium Chloride Carbon Dioxide BUN Creatinine Glucose POC Glucose 440 H Hemoglobin A1c Calcium Ferritin 1295.0 H AST ALT Alkaline Phosphatase Lactate Dehydrogenase 620 H C-Reactive Protein 2.70 H Total Protein Albumin Arterial Blood Glucose Arterial Blood Ionized Calcium Urine Creatinine Coronavirus (PCR) 12/22/20 12/23/20 12/23/20 21:07 08:09 11:30 WBC RBC MCHC Plt Count Lymph % (Auto) [place] % (Auto) Lymph # (Auto) Seg Neutrophils % Seg Neuts % (Manual) Lymphocytes % (Manual) Nucleated RBC % Seg Neutrophils # Seg Neutrophils # Man Lymphocytes # (Manual) D-Dimer ABG pH POC ABG pCO2 POC ABG pO2 ABG Oxyhemoglobin ABG Sodium ABG Glucose Sodium Potassium Chloride Carbon Dioxide BUN Creatinine Glucose POC Glucose 493 H 156 H 185 H Hemoglobin A1c Calcium Ferritin AST ALT Alkaline Phosphatase Lactate Dehydrogenase C-Reactive Protein Total Protein Albumin Arterial Blood Glucose Arterial Blood Ionized Calcium Urine Creatinine Coronavirus (PCR) 12/23/20 12/23/20 12/23/20 14:09 14:09 16:26 WBC 1.8 L* RBC 3.45 L MCHC Plt Count 114 L Lymph % (Auto) [place] % (Auto) Lymph # (Auto) Seg Neutrophils % Seg Neuts % (Manual) 87.0 H Lymphocytes % (Manual) 3.0 L Nucleated RBC % 1.0 H Seg Neutrophils # Seg Neutrophils # Man 1.6 L Lymphocytes # (Manual) 0.1 L D-Dimer ABG pH POC ABG pCO2 POC ABG pO2 ABG Oxyhemoglobin ABG Sodium ABG Glucose Sodium Potassium Chloride Carbon Dioxide BUN 19 H Creatinine Glucose 292 H POC Glucose 351 H Hemoglobin A1c Calcium 7.4 L Ferritin AST 71 H ALT Alkaline Phosphatase 264 H Lactate Dehydrogenase C-Reactive Protein Total Protein Albumin 3.0 L Arterial Blood Glucose Arterial Blood Ionized Calcium Urine Creatinine Coronavirus (PCR) 12/23/20 12/24/20 12/24/20 21:11 08:21 11:58 WBC RBC MCHC Plt Count Lymph % (Auto) [place] % (Auto) Lymph # (Auto) Seg Neutrophils % Seg Neuts % (Manual) Lymphocytes % (Manual) Nucleated RBC % Seg Neutrophils # Seg Neutrophils # Man Lymphocytes # (Manual) D-Dimer ABG pH POC ABG pCO2 POC ABG pO2 ABG Oxyhemoglobin ABG Sodium ABG Glucose Sodium Potassium Chloride Carbon Dioxide BUN Creatinine Glucose POC Glucose 288 H 286 H 277 H Hemoglobin A1c Calcium Ferritin AST ALT Alkaline Phosphatase Lactate Dehydrogenase C-Reactive Protein Total Protein Albumin Arterial Blood Glucose Arterial Blood Ionized Calcium Urine Creatinine Coronavirus (PCR) 12/24/20 12/24/20 12/24/20 12:29 12:29 16:05 WBC 2.5 L RBC 3.49 L MCHC 35 H Plt Count 132 L Lymph % (Auto) [place] % (Auto) 7.6 H Lymph # (Auto) 0.4 L Seg Neutrophils % 74.7 H Seg Neuts % (Manual) Lymphocytes % (Manual) Nucleated RBC % Seg Neutrophils # Seg Neutrophils # Man Lymphocytes # (Manual) D-Dimer ABG pH POC ABG pCO2 POC ABG pO2 ABG Oxyhemoglobin ABG Sodium ABG Glucose Sodium Potassium Chloride Carbon Dioxide BUN Creatinine Glucose 256 H POC Glucose 282 H Hemoglobin A1c Calcium 7.8 L Ferritin AST 50 H ALT Alkaline Phosphatase 262 H Lactate Dehydrogenase C-Reactive Protein Total Protein Albumin 2.8 L Arterial Blood Glucose Arterial Blood Ionized Calcium Urine Creatinine Coronavirus (PCR) 12/24/20 12/25/20 12/25/20 22:01 07:58 11:38 WBC RBC MCHC Plt Count Lymph % (Auto) [place] % (Auto) Lymph # (Auto) Seg Neutrophils % Seg Neuts % (Manual) Lymphocytes % (Manual) Nucleated RBC % Seg Neutrophils # Seg Neutrophils # Man Lymphocytes # (Manual) D-Dimer ABG pH POC ABG pCO2 POC ABG pO2 ABG Oxyhemoglobin ABG Sodium ABG Glucose Sodium Potassium Chloride Carbon Dioxide BUN Creatinine Glucose POC Glucose 366 H 278 H 325 H Hemoglobin A1c Calcium Ferritin AST ALT Alkaline Phosphatase Lactate Dehydrogenase C-Reactive Protein Total Protein Albumin Arterial Blood Glucose Arterial Blood Ionized Calcium Urine Creatinine Coronavirus (PCR) 12/25/20 12/25/20 12/26/20 15:47 21:31 04:29 WBC RBC MCHC Plt Count Lymph % (Auto) [place] % (Auto) Lymph # (Auto) Seg Neutrophils % Seg Neuts % (Manual) Lymphocytes % (Manual) Nucleated RBC % Seg Neutrophils # Seg Neutrophils # Man Lymphocytes # (Manual) D-Dimer ABG pH POC ABG pCO2 POC ABG pO2 ABG Oxyhemoglobin ABG Sodium ABG Glucose Sodium Potassium Chloride Carbon Dioxide BUN 22 H Creatinine Glucose 327 H POC Glucose 316 H 339 H Hemoglobin A1c Calcium 7.9 L Ferritin AST ALT Alkaline Phosphatase Lactate Dehydrogenase C-Reactive Protein Total Protein Albumin Arterial Blood Glucose Arterial Blood Ionized Calcium Urine Creatinine Coronavirus (PCR) 12/26/20 12/26/20 12/26/20 07:42 11:08 11:08 WBC RBC MCHC Plt Count Lymph % (Auto) [place] % (Auto) Lymph # (Auto) Seg Neutrophils % Seg Neuts % (Manual) Lymphocytes % (Manual) Nucleated RBC % Seg Neutrophils # Seg Neutrophils # Man Lymphocytes # (Manual) D-Dimer 1954.54 H ABG pH POC ABG pCO2 POC ABG pO2 ABG Oxyhemoglobin ABG Sodium ABG Glucose Sodium Potassium Chloride Carbon Dioxide BUN Creatinine Glucose POC Glucose 353 H Hemoglobin A1c Calcium Ferritin 932.1 H AST ALT Alkaline Phosphatase Lactate Dehydrogenase C-Reactive Protein Total Protein Albumin Arterial Blood Glucose Arterial Blood Ionized Calcium Urine Creatinine Coronavirus (PCR) 12/26/20 12/26/20 12/26/20 11:08 11:57 16:40 WBC RBC MCHC Plt Count Lymph % (Auto) [place] % (Auto) Lymph # (Auto) Seg Neutrophils % Seg Neuts % (Manual) Lymphocytes % (Manual) Nucleated RBC % Seg Neutrophils # Seg Neutrophils # Man Lymphocytes # (Manual) D-Dimer ABG pH POC ABG pCO2 POC ABG pO2 ABG Oxyhemoglobin ABG Sodium ABG Glucose Sodium Potassium Chloride Carbon Dioxide BUN Creatinine Glucose POC Glucose 318 H 352 H Hemoglobin A1c Calcium Ferritin AST ALT Alkaline Phosphatase Lactate Dehydrogenase 698 H C-Reactive Protein 3.70 H Total Protein Albumin Arterial Blood Glucose Arterial Blood Ionized Calcium Urine Creatinine Coronavirus (PCR) 12/26/20 12/27/20 12/27/20 21:29 04:25 04:25 WBC RBC MCHC Plt Count Lymph % (Auto) 6.4 L [place] % (Auto) 7.5 H Lymph # (Auto) 0.5 L Seg Neutrophils % 85.9 H Seg Neuts % (Manual) Lymphocytes % (Manual) Nucleated RBC % Seg Neutrophils # Seg Neutrophils # Man Lymphocytes # (Manual) D-Dimer ABG pH POC ABG pCO2 POC ABG pO2 ABG Oxyhemoglobin ABG Sodium ABG Glucose Sodium Potassium 5.4 H D Chloride Carbon Dioxide BUN 30 H Creatinine Glucose 273 H POC Glucose 376 H Hemoglobin A1c Calcium 8.1 L Ferritin AST ALT Alkaline Phosphatase 242 H Lactate Dehydrogenase C-Reactive Protein Total Protein Albumin 2.7 L Arterial Blood Glucose Arterial Blood Ionized Calcium Urine Creatinine Coronavirus (PCR) 12/27/20 12/27/20 12/27/20 08:05 11:39 17:28 WBC RBC MCHC Plt Count Lymph % (Auto) [place] % (Auto) Lymph # (Auto) Seg Neutrophils % Seg Neuts % (Manual) Lymphocytes % (Manual) Nucleated RBC % Seg Neutrophils # Seg Neutrophils # Man Lymphocytes # (Manual) D-Dimer ABG pH POC ABG pCO2 POC ABG pO2 ABG Oxyhemoglobin ABG Sodium ABG Glucose Sodium Potassium Chloride Carbon Dioxide BUN Creatinine Glucose POC Glucose 287 H 359 H 490 H Hemoglobin A1c Calcium Ferritin AST ALT Alkaline Phosphatase Lactate Dehydrogenase C-Reactive Protein Total Protein Albumin Arterial Blood Glucose Arterial Blood Ionized Calcium Urine Creatinine Coronavirus (PCR) 12/27/20 12/27/20 12/28/20 21:43 21:53 04:41 WBC RBC MCHC Plt Count Lymph % (Auto) [place] % (Auto) Lymph # (Auto) Seg Neutrophils % Seg Neuts % (Manual) Lymphocytes % (Manual) Nucleated RBC % Seg Neutrophils # Seg Neutrophils # Man Lymphocytes # (Manual) D-Dimer ABG pH POC ABG pCO2 POC ABG pO2 ABG Oxyhemoglobin ABG Sodium ABG Glucose Sodium Potassium Chloride Carbon Dioxide 31 H BUN 35 H Creatinine Glucose 328 H POC Glucose 503 H 438 H Hemoglobin A1c Calcium Ferritin AST ALT Alkaline Phosphatase Lactate Dehydrogenase C-Reactive Protein Total Protein Albumin Arterial Blood Glucose Arterial Blood Ionized Calcium Urine Creatinine Coronavirus (PCR) 12/28/20 12/28/20 12/28/20 07:58 11:40 15:43 WBC RBC MCHC Plt Count Lymph % (Auto) [place] % (Auto) Lymph # (Auto) Seg Neutrophils % Seg Neuts % (Manual) Lymphocytes % (Manual) Nucleated RBC % Seg Neutrophils # Seg Neutrophils # Man Lymphocytes # (Manual) D-Dimer 4626.15 H ABG pH POC ABG pCO2 POC ABG pO2 ABG Oxyhemoglobin ABG Sodium ABG Glucose Sodium Potassium Chloride Carbon Dioxide BUN Creatinine Glucose POC Glucose 321 H 455 H Hemoglobin A1c Calcium Ferritin AST ALT Alkaline Phosphatase Lactate Dehydrogenase C-Reactive Protein Total Protein Albumin Arterial Blood Glucose Arterial Blood Ionized Calcium Urine Creatinine Coronavirus (PCR) 12/28/20 12/28/20 12/28/20 15:43 15:43 17:10 WBC RBC MCHC Plt Count Lymph % (Auto) [place] % (Auto) Lymph # (Auto) Seg Neutrophils % Seg Neuts % (Manual) Lymphocytes % (Manual) Nucleated RBC % Seg Neutrophils # Seg Neutrophils # Man Lymphocytes # (Manual) D-Dimer ABG pH POC ABG pCO2 POC ABG pO2 ABG Oxyhemoglobin ABG Sodium ABG Glucose Sodium Potassium Chloride Carbon Dioxide BUN Creatinine Glucose POC Glucose 291 H Hemoglobin A1c Calcium Ferritin 1030.0 H AST ALT Alkaline Phosphatase Lactate Dehydrogenase 838 H C-Reactive Protein Total Protein Albumin Arterial Blood Glucose Arterial Blood Ionized Calcium Urine Creatinine Coronavirus (PCR) 12/28/20 12/29/20 12/29/20 21:42 05:12 08:25 WBC RBC MCHC Plt Count Lymph % (Auto) [place] % (Auto) Lymph # (Auto) Seg Neutrophils % Seg Neuts % (Manual) Lymphocytes % (Manual) Nucleated RBC % Seg Neutrophils # Seg Neutrophils # Man Lymphocytes # (Manual) D-Dimer ABG pH POC ABG pCO2 POC ABG pO2 ABG Oxyhemoglobin ABG Sodium ABG Glucose Sodium 146 H Potassium Chloride Carbon Dioxide 32 H BUN 34 H Creatinine Glucose 126 H POC Glucose 240 H 176 H Hemoglobin A1c Calcium Ferritin AST ALT Alkaline Phosphatase Lactate Dehydrogenase C-Reactive Protein Total Protein Albumin Arterial Blood Glucose Arterial Blood Ionized Calcium Urine Creatinine Coronavirus (PCR) 12/29/20 12/29/20 12/29/20 11:24 16:49 21:39 WBC RBC MCHC Plt Count Lymph % (Auto) [place] % (Auto) Lymph # (Auto) Seg Neutrophils % Seg Neuts % (Manual) Lymphocytes % (Manual) Nucleated RBC % Seg Neutrophils # Seg Neutrophils # Man Lymphocytes # (Manual) D-Dimer ABG pH POC ABG pCO2 POC ABG pO2 ABG Oxyhemoglobin ABG Sodium ABG Glucose Sodium Potassium Chloride Carbon Dioxide BUN Creatinine Glucose POC Glucose 209 H 226 H 169 H Hemoglobin A1c Calcium Ferritin AST ALT Alkaline Phosphatase Lactate Dehydrogenase C-Reactive Protein Total Protein Albumin Arterial Blood Glucose Arterial Blood Ionized Calcium Urine Creatinine Coronavirus (PCR) 12/30/20 12/30/20 12/30/20 07:34 12:17 16:29 WBC RBC MCHC Plt Count Lymph % (Auto) [place] % (Auto) Lymph # (Auto) Seg Neutrophils % Seg Neuts % (Manual) Lymphocytes % (Manual) Nucleated RBC % Seg Neutrophils # Seg Neutrophils # Man Lymphocytes # (Manual) D-Dimer ABG pH POC ABG pCO2 POC ABG pO2 ABG Oxyhemoglobin ABG Sodium ABG Glucose Sodium Potassium Chloride Carbon Dioxide BUN Creatinine Glucose POC Glucose 206 H 261 H 229 H Hemoglobin A1c Calcium Ferritin AST ALT Alkaline Phosphatase Lactate Dehydrogenase C-Reactive Protein Total Protein Albumin Arterial Blood Glucose Arterial Blood Ionized Calcium Urine Creatinine Coronavirus (PCR) 12/30/20 12/30/20 12/31/20 18:03 23:13 08:43 WBC RBC MCHC Plt Count Lymph % (Auto) [place] % (Auto) Lymph # (Auto) Seg Neutrophils % Seg Neuts % (Manual) Lymphocytes % (Manual) Nucleated RBC % Seg Neutrophils # Seg Neutrophils # Man Lymphocytes # (Manual) D-Dimer ABG pH 7.454 H POC ABG pCO2 49.7 H POC ABG pO2 59.0 L ABG Oxyhemoglobin 88.6 L ABG Sodium 146.4 H ABG Glucose 252 H Sodium Potassium Chloride Carbon Dioxide BUN Creatinine Glucose POC Glucose 188 H 191 H Hemoglobin A1c Calcium Ferritin AST ALT Alkaline Phosphatase Lactate Dehydrogenase C-Reactive Protein Total Protein Albumin Arterial Blood Glucose 252 H Arterial Blood Ionized Calcium 4.5 L Urine Creatinine Coronavirus (PCR) 12/31/20 12/31/20 12/31/20 11:57 16:57 21:37 WBC RBC MCHC Plt Count Lymph % (Auto) [place] % (Auto) Lymph # (Auto) Seg Neutrophils % Seg Neuts % (Manual) Lymphocytes % (Manual) Nucleated RBC % Seg Neutrophils # Seg Neutrophils # Man Lymphocytes # (Manual) D-Dimer ABG pH POC ABG pCO2 POC ABG pO2 ABG Oxyhemoglobin ABG Sodium ABG Glucose Sodium Potassium Chloride Carbon Dioxide BUN Creatinine Glucose POC Glucose 185 H 171 H 136 H Hemoglobin A1c Calcium Ferritin AST ALT Alkaline Phosphatase Lactate Dehydrogenase C-Reactive Protein Total Protein Albumin Arterial Blood Glucose Arterial Blood Ionized Calcium Urine Creatinine Coronavirus (PCR)
[2021-01-01] MEDS ORDERED: FUROSEMIDE 40 MG/4 ML INJ IV ONE (20:00)
[2021-01-01] MEDS: ENOXAPARIN 40 MG/0.4 ML INJ SUB-Q SCH (21:01)
[2021-01-01] MEDS: guaiFENesin 100 MG/5 ML ORAL LIQD PO PRN (21:01)
[2021-01-01] MEDS: MORPHINE 2 MG/1 ML INJ IV PRN (21:01)
[2021-01-01] MEDS: LORazepam 2 MG/ML VIAL IV PRN (22:58)
[2021-01-02] MEDS: methylPREDNISolone Sod Succinate 125 MG/2 ML INJ IV SCH ×3 (06:44→17:16)
--- NOTE | 2021-01-02 08:27 | Progress Note ---
Assessment and Plan Assessment and plan: Pt is on continuous BiPAP, not tolerating high flow nasal cannula oxygen --COVID-19 test positive on 12/21/2020 --Acute hypoxic respiratory failure; Due to severe COVID-19 infection as well as Obesity hypoventilation syndrome Requiring continuous BiPAP, If no improvement will need intubation and ventilator support Prone positioning, pulmonary and ID following --Nutrition; patient is unable to take anything oral due to continuous BiPAP Considering TPN/TPN [or tube feeding if Dobbhoff can be placed safely] --Sepsis due to COVID-19 pneumonia Procalcitonin low, no need for antibiotics --Severe, COVID-19 infection;Guarded prognosis Completed remdesivir Received Tocilizumab Continue IV steroids Monitor inflammatory markers Prone positioning as tolerated Home oxygen evaluation prior to discharge Follow ID and pulmonary recommendations --Elevated D-dimers; due to COVID-19 CTA chest negative for PE lower extremity venous Doppler negative for DVT --Diabetes mellitus type 2; uncontrolled,A1c 10.3 Moderate control, Accu-Chek sliding scale coverage ADA diet and long-acting insulin Diabetic education, diabetic diet education when patient is more stable --Morbid obesity; BMI 46.2 Patient needs weight reduction when medically stable Patient needs outpatient pulmonary evaluation for sleep study to evaluate for JERMAINE Continue BiPAP --OHS/JERMAINE; due to morbid obesity Patient needs outpatient sleep study to rule out JERMAINE CPAP/BiPAP at night and as needed --Elevated LFTs probably Covid related; Present on admission, resolved today --DVT prophylaxis; Lovenox Closely monitor the patient and adjust the management as needed Apartment Groundskeeper recommendations noted and appreciated Plan of care reviewed with the patient and her nurse Patient is critically ill with guarded prognosis Patient and family aware The high probability of a clinically significant, sudden or life threatening deterioration of the [multi] system(s) required my full and direct attention, intervention and personal management. The aggregate critical care time was [32] minutes. This time is in addition to time spent performing reported procedures but includes the following: [x] Data Review and interpretation [x] Patient assessment and monitoring of vital signs [x] Documentation [x] Medication orders and management Brief history and daily patient care; Morbidly obese 55 y/o -[place] female patient past medical history of ILD on CT scan[per [facility] records] was admitted with worsening shortness of breath noted to have severe COVID-19 pneumonia. With acute hypoxic respiratory failure, BiPAP dependent. ID pulmonary following 12/21/2020. Follow-up COVID-19 testing. Continue to trend inflammatory markers. Continue dexamethasone. ID and pulmonary consultation pending. Patient currently with 6 L/min O2 FiO2 44%. 12/22/2020. COVID-19 testing found to be positive. Continue to trend inflam matory markers. Continue dexamethasone. Patient requiring more oxygen with high flow nasal cannula 30 L/min and FiO2 100%. ID and pulmonary following. 12/23/2020. Patient with increasing oxygen requirements with high flow nasal cannula 40 L/min with FiO2 100%. Continue dexamethasone per ID recommendations. We will transfer to IM for closer monitoring. 12/24/2020. Patient was transferred to IM for closer monitoring yesterday. Patient currently requiring BiPAP with IPAP 16 and EPAP of 8 with FiO2 100%. Continue dexamethasone and remdesivir. Continue to trend inflammatory markers. Continue anticoagulation. Prone position as possible. Continue ceftriaxone and azithromycin per ID recommendations. 12/25/2020. Patient currently requiring BiPAP with IPAP 16 and EPAP of 8 with FiO2 100%. Continue IV steroids of Solu-Medrol 60 mg every 8 hour and remdesivir. Continue to trend inflammatory markers. Continue anticoagulation with Lovenox. Prone position as possible. Continue ceftriaxone and azithromycin per ID recommendations. Prognosis is guarded. 12/26/2020 BG not controlled with glipizide. Start Lantus at bedtime for BG control. Elevated BG likely secondary to IV steroid. Patient currently requiring BiPAP with IPAP 18 and EPAP of 10 with FiO2 100%. Continue IV steroids of Solu-Medrol 60 mg every 8 hour and remdesivir. Continue to trend inflammatory markers. Continue anticoagulation with Lovenox. Prone position as possible. Continue ceftriaxone and azithromycin per ID recommendations. Prognosis is guarded. 12/27/2020. Blood glucose is improved but not optimal. Therefore, increase Lantus to 14 units at bedtime. Elevated BG likely secondary to IV steroid. Patient currently requiring BiPAP with IPAP 18 and EPAP of 10 with FiO2 100%. Continue IV steroids of Solu-Medrol 60 mg every 8 hour and remdesivir. Continue to trend inflammatory markers. Continue anticoagulation with Lovenox. Prone position as possible. Continue ceftriaxone and azithromycin per ID recommendations. Prognosis is guarded. 12/28/2020; patient's blood sugars are uncontrolled, secondary to noncompliance, partly due to high-dose steroids Patient remains hypoxic on continuous BiPAP Switch to 70/30 Novolin 20 units twice a day adjust as needed Patient's A1c 10.3, diabetic education nutrition education 12/29/2020; patient continues to be hypoxemic requiring continuous BiPAP Worsening D-dimers, CTA negative for PE, venous Doppler negative DVT 12/30/2020; patient continues to require continuous BiPAP Wean as tolerated, patient is critically ill with poor prognosis Apartment Groundskeeper recommendations noted and appreciated 12/31/2020; patient is on BiPAP Wean as tolerated, continue nebulizers IV steroids And other supportive care Pulmonary and ID recommendations noted and appreciated 01/01/2021; patient on continuous BiPAP 100% FiO2 Did not tolerate high flow nasal cannula 40 L 01/02/2021; patient briefly tolerated HFNC O2 Try to give Ensure intermittently if possible If unsuccessful will consider TPN History Interval history: I have seen and examined the patient in IMCU this morning Strict isolation precautions and PPE protocols followed per COVID-19 guidelines Patient remains on continuous BiPAP, not tolerating high flow nasal cannula oxygen Severely hypoxemic in mild distress . Patient is unable to take oral due to continuous BiPAP Vital signs reviewed Hospitalist Physical - Constitutional Vitals: Temp Pulse Resp BP Pulse Ox 97.6 F 81 20 119/89 97 01/02/21 04:00 01/02/21 06:30 01/02/21 06:30 01/02/21 06:30 01/02/21 06:00 General appearance: Present: mild distress, well-nourished, obese (Morbidly obese), other (On continuous BiPAP) - EENT Eyes: Present: PERRL, EOM intact - Neck Neck: Present: supple, normal ROM - Respiratory Respiratory effort: normal Respiratory: bilateral: diminished, rhonchi, negative: rales, wheezing - Cardiovascular Rhythm: regular Heart Sounds: Present: S1 & S2 - Extremities Extremities: no ischemia, No edema - Abdominal General gastrointestinal: soft, non-tender, non-distended, normal bowel sounds - Integumentary Integumentary: Present: clear, warm - Psychiatric Psychiatric: appropriate mood/affect, cooperative - Neurologic Neurologic: CNII-XII intact, moves all extremities HEART Score - HEART Score Troponin: Troponin T < 0.010 ng/mL (0.00-0.029) 12/20/20 19:27 Results - Labs CBC & Chem 7: 12/27/20 04:25 12/29/20 05:12 Labs: Laboratory Last Values WBC 7.5 K/mm3 (4.5-11.0) 12/27/20 04:25 RBC 4.05 M/mm3 (3.65-5.03) 12/27/20 04:25 Hgb 13.1 gm/dl (10.1-14.3) 12/27/20 04:25 Hct 38.8 % (30.3-42.9) D 12/27/20 04:25 MCV 96 fl (79-97) 12/27/20 04:25 MCH 32 pg (28-32) 12/27/20 04:25 MCHC 34 % (30-34) 12/27/20 04:25 RDW 13.7 % (13.2-15.2) 12/27/20 04:25 Plt Count 230 K/mm3 (140-440) 12/27/20 04:25 Lymph % (Auto) 6.4 % (13.4-35.0) L 12/27/20 04:25 [place] % (Auto) 7.5 % (0.0-7.3) H 12/27/20 04:25 Eos % (Auto) 0.0 % (0.0-4.3) 12/27/20 04:25 Baso % (Auto) 0.2 % (0.0-1.8) 12/27/20 04:25 Lymph # (Auto) 0.5 K/mm3 (1.2-5.4) L 12/27/20 04:25 [place] # (Auto) 0.6 K/mm3 (0.0-0.8) 12/27/20 04:25 Eos # (Auto) 0.0 K/mm3 (0.0-0.4) 12/27/20 04:25 Baso # (Auto) 0.0 K/mm3 (0.0-0.1) 12/27/20 04:25 Add Manual Diff Complete 12/23/20 14:09 Total Counted 100 12/23/20 14:09 Seg Neutrophils % 85.9 % (40.0-70.0) H 12/27/20 04:25 Seg Neuts % (Manual) 87.0 % (40.0-70.0) H 12/23/20 14:09 Band Neutrophils % 4.0 % 12/23/20 14:09 Lymphocytes % (Manual) 3.0 % (13.4-35.0) L 12/23/20 14:09 Reactive Lymphs % (Man) 1.0 % 12/23/20 14:09 Monocytes % (Manual) 5.0 % (0.0-7.3) 12/23/20 14:09 Nucleated RBC % 1.0 % (0.0-0.9) H 12/23/20 14:09 Seg Neutrophils # 6.4 K/mm3 (1.8-7.7) 12/27/20 04:25 Seg Neutrophils # Man 1.6 K/mm3 (1.8-7.7) L 12/23/20 14:09 Band Neutrophils # 0.1 K/mm3 12/23/20 14:09 Lymphocytes # (Manual) 0.1 K/mm3 (1.2-5.4) L 12/23/20 14:09 Abs React Lymphs (Man) 0.0 K/mm3 12/23/20 14:09 Monocytes # (Manual) 0.1 K/mm3 (0.0-0.8) 12/23/20 14:09 Eosinophils # (Manual) 0.0 K/mm3 (0.0-0.4) 12/23/20 14:09 Basophils # (Manual) 0.0 K/mm3 (0.0-0.1) 12/23/20 14:09 Metamyelocytes # 0.0 K/mm3 12/23/20 14:09 Myelocytes # 0.0 K/mm3 12/23/20 14:09 Promyelocytes # 0.0 K/mm3 12/23/20 14:09 Blast Cells # 0.0 K/mm3 12/23/20 14:09 WBC Morphology Not Reportable 12/23/20 14:09 Hypersegmented Neuts Not Reportable 12/23/20 14:09 Hyposegmented Neuts Not Reportable 12/23/20 14:09 Hypogranular Neuts Not Reportable 12/23/20 14:09 Smudge Cells Not Reportable 12/23/20 14:09 Toxic Granulation Not Reportable 12/23/20 14:09 Toxic Vacuolation Not Reportable 12/23/20 14:09 Dohle Bodies Not Reportable 12/23/20 14:09 Pelger-Huet Anomaly Not Reportable 12/23/20 14:09 Jair Rods Not Reportable 12/23/20 14:09 Platelet Estimate Consistent w auto 12/23/20 14:09 Clumped Platelets Not Reportable 12/23/20 14:09 Plt Clumps, EDTA Not Reportable 12/23/20 14:09 Large Platelets Not Reportable 12/23/20 14:09 Giant Platelets Not Reportable 12/23/20 14:09 Platelet Satelliting Not Reportable 12/23/20 14:09 Plt Morphology Comment Not Reportable 12/23/20 14:09 RBC Morphology Normal 12/23/20 14:09 Dimorphic RBCs Not Reportable 12/23/20 14:09 Polychromasia Not Reportable 12/23/20 14:09 Hypochromasia Not Reportable 12/23/20 14:09 Poikilocytosis Not Reportable 12/23/20 14:09 Anisocytosis Not Reportable 12/23/20 14:09 Microcytosis Not Reportable 12/23/20 14:09 Macrocytosis Not Reportable 12/23/20 14:09 Spherocytes Not Reportable 12/23/20 14:09 Pappenheimer Bodies Not Reportable 12/23/20 14:09 Sickle Cells Not Reportable 12/23/20 14:09 Target Cells Not Reportable 12/23/20 14:09 Tear Drop Cells Not Reportable 12/23/20 14:09 Ovalocytes Not Reportable 12/23/20 14:09 Helmet Cells Not Reportable 12/23/20 14:09 [place] Bodies Not Reportable 12/23/20 14:09 [place] Rings Not Reportable 12/23/20 14:09 Ale Cells Not Reportable 12/23/20 14:09 Bite Cells Not Reportable 12/23/20 14:09 Crenated Cell Not Reportable 12/23/20 14:09 Elliptocytes Not Reportable 12/23/20 14:09 Acanthocytes (Spur) Not Reportable 12/23/20 14:09 Rouleaux Not Reportable 12/23/20 14:09 Hemoglobin C Crystals Not Reportable 12/23/20 14:09 Schistocytes Not Reportable 12/23/20 14:09 Malaria parasites Not Reportable 12/23/20 14:09 Giorgi Bodies Not Reportable 12/23/20 14:09 Hem Pathologist Commnt No 12/23/20 14:09 PT 13.1 Sec. (12.2-14.9) 12/21/20 05:50 INR 1.01 (0.87-1.13) 12/21/20 05:50 D-Dimer 4626.15 ng/mlDDU (0-234) H 12/28/20 15:43 ABG pH 7.454 (7.320-7.450) H 12/30/20 18:03 POC ABG pCO2 49.7 mmHg (32.0-48.0) H 12/30/20 18:03 POC ABG pO2 59.0 mmHg (83-108) L 12/30/20 18:03 POC ABG HCO3 34.1 12/30/20 18:03 ABG O2 Saturation 89.9 (0-100) 12/30/20 18:03 POC ABG Base Excess 8.7 12/30/20 18:03 ABG Hemoglobin 13.9 (12.0-17.5) 12/30/20 18:03 ABG Oxyhemoglobin 88.6 (94-98) L 12/30/20 18:03 ABG Methemoglobin 0.3 (0.0-1.5) 12/30/20 18:03 ABG Sodium 146.4 mmol/L (136.0-145.0) H 12/30/20 18:03 ABG Potassium 3.7 mmol/L (3.40-4.50) 12/30/20 18:03 ABG Chloride 105.0 mmol/L (98-107) 12/30/20 18:03 ABG Glucose 252 mg/dL (65-95) H 12/30/20 18:03 Carboxyhemoglobin 1.1 (0.5-1.5) 12/30/20 18:03 FiO2 % 85 12/30/20 18:03 Sodium 146 mmol/L (137-145) H 12/29/20 05:12 Potassium 4.8 mmol/L (3.6-5.0) 12/29/20 05:12 Chloride 104.8 mmol/L (98-107) 12/29/20 05:12 Carbon Dioxide 32 mmol/L (22-30) H 12/29/20 05:12 Anion Gap 14 mmol/L 12/29/20 05:12 BUN 34 mg/dL (7-17) H 12/29/20 05:12 Creatinine 0.9 mg/dL (0.6-1.2) 12/29/20 05:12 Estimated GFR > 60 ml/min 12/29/20 05:12 BUN/Creatinine Ratio 38 % 12/29/20 05:12 Glucose 126 mg/dL (65-100) H 12/29/20 05:12 POC Glucose 316 mg/dL (70-105) H 01/01/21 22:20 Hemoglobin A1c 10.3 % (4-6) H 12/21/20 05:50 Lactic Acid 1.40 mmol/L (0.7-2.0) 12/21/20 05:50 Calcium 8.8 mg/dL (8.4-10.2) 12/29/20 05:12 Magnesium 1.90 mg/dL (1.7-2.3) 12/26/20 04:29 Ferritin 1030.0 ng/mL (10.0-200.0) H 12/28/20 15:43 Total Bilirubin 0.30 mg/dL (0.1-1.2) 12/27/20 04:25 AST 31 units/L (5-40) 12/27/20 04:25 ALT 28 units/L (7-56) 12/27/20 04:25 Alkaline Phosphatase 242 units/L (35-129) H 12/27/20 04:25 Lactate Dehydrogenase 838 units/L (91-180) H 12/28/20 15:43 Troponin T < 0.010 ng/mL (0.00-0.029) 12/20/20 19:27 C-Reactive Protein 1.10 mg/dL (0.00-1.30) 12/28/20 15:43 Total Protein 7.3 g/dL (6.3-8.2) 12/27/20 04:25 Albumin 2.7 g/dL (3.9-5) L 12/27/20 04:25 Albumin/Globulin Ratio 0.6 % 12/27/20 04:25 Procalcitonin 0.07 ng/mL (<0.15) 12/26/20 11:08 Arterial Blood Glucose 252 mg/dL (65-95) H 12/30/20 18:03 Arterial Blood Ionized Calcium 4.5 mg/dL (4.6-5.3) L 12/30/20 18:03 Urine Color Yellow (Yellow) 12/22/20 03:00 Urine Turbidity Clear (Clear) 12/22/20 03:00 Urine pH 5.0 (5.0-7.0) 12/22/20 03:00 Ur Specific [place] 1.019 (1.003-1.030) 12/22/20 03:00 Urine Protein 100 mg/dl mg/dL (Negative) 12/22/20 03:00 Urine Glucose (UA) 50 mg/dL (Negative) 12/22/20 03:00 Urine Ketones Neg mg/dL (Negative) 12/22/20 03:00 Urine Blood Sm (Negative) 12/22/20 03:00 Urine Nitrite Neg (Negative) 12/22/20 03:00 Urine Bilirubin Neg (Negative) 12/22/20 03:00 Urine Urobilinogen 2.0 mg/dL (<2.0) 12/22/20 03:00 Ur Leukocyte Esterase Neg (Negative) 12/22/20 03:00 Urine WBC (Auto) 1.0 /HPF (0.0-6.0) 12/22/20 03:00 Urine RBC (Auto) 1.0 /HPF (0.0-6.0) 12/22/20 03:00 U Epithel Cells (Auto) 3.0 /HPF (0-13.0) 12/22/20 03:00 Urine Bacteria (Auto) 1+ /HPF (Negative) 12/22/20 03:00 Urine Mucus Few /HPF 12/22/20 03:00 Urine Eosinophils None seen (None Seen) 12/22/20 03:00 Urine Creatinine 117.9 mg/dL (0.1-20.0) H 12/22/20 03:00 Urine Sodium 67 mmol/L 12/22/20 03:00 Coronavirus (PCR) Positive (Negative) A 12/21/20 10:28 Hepatitis A IgM Ab Non-reactive (NonReactive) 12/22/20 06:00 Hep Bs Antigen Non-reactive (Negative) 12/22/20 06:00 Hep B Core IgM Ab Non-reactive (NonReactive) 12/22/20 06:00 Hepatitis C Antibody Non-reactive (NonReactive) 12/22/20 06:00 Curtis/IV: Voiding Method Indwelling Catheter Active Medications - Current Medications Current Medications: Generic Name Dose Route Start Last Admin Trade Name Freq PRN Reason Stop Dose Admin Acetaminophen 650 mg 12/20/20 23:15 12/24/20 09:40 Acetaminophen 325 Mg Tab PO 650 mg Q4H PRN Administration Pain MILD(1-3)/Fever >100.5/VARGAS Albuterol 2.5 mg 12/21/20 12:00 Albuterol 2.5 Mg/3 Ml Nebu IH Q4HRT PRN Shortness Of Breath Amlodipine Besylate 10 mg 12/26/20 14:00 01/01/21 10:00 Amlodipine 10 Mg Tab PO Not Given QDAY TAMEKA Dextrose 50 ml 12/20/20 23:15 Dextrose 50% In Water (25gm) 50 Ml Syringe IV Q30MIN PRN Hypoglycemia Protocol Enoxaparin Sodium 40 mg 12/21/20 22:00 01/01/21 21:01 Enoxaparin 40 Mg/0.4 Ml Inj SUB-Q 40 mg QDAY@2200 TAMEKA Administration Protocol Furosemide 40 mg 12/26/20 14:00 01/01/21 10:00 Furosemide 40 Mg/4 Ml Inj IV 40 mg QDAY TAMEKA Administration Gabapentin 800 mg 12/21/20 22:00 01/01/21 21:01 Gabapentin 400 Mg Cap PO 800 mg BID TAMEKA Administration Glipizide 10 mg 12/21/20 10:00 01/01/21 17:00 Glipizide 10 Mg Tab PO Not Given BIDDIAB TAMEKA Guaifenesin 200 mg 12/21/20 16:00 01/01/21 21:01 Guaifenesin 100 Mg/5 Ml Oral Liqd PO 200 mg Q4H PRN Administration Cough Dexmedetomidine HCl 400 mcg/ 104 mls @ 6.952 mls/hr 12/28/20 15:00 01/02/21 03:12 Sodium Chloride IV 0.2 mcg/kg/hr TITRATE TAMEKA 6.952 mls/hr Administration Protocol 0.2 MCG/KG/HR Insulin Human Isoph/Insulin Regular 25 unit 12/28/20 09:00 01/01/21 17:00 Insulin Nph/Regular 70/30 Inj SUB-Q Not Given BIDDIAB TAMEKA Insulin Human Lispro 0 unit 12/21/20 07:30 01/01/21 22:58 Insulin Lispro 100 Unit/Ml SUB-Q 8 unit ACHS TAMEKA Administration Protocol Lorazepam 0.5 mg 12/23/20 20:12 01/01/21 22:58 Lorazepam 2 Mg/Ml Vial IV 0.5 mg Q6H PRN Administration Anxiety Magnesium Hydroxide 30 ml 12/20/20 23:15 Magnesium Hydroxide (Mom) Oral Liqd Udc PO Q4H PRN Constipation Methylprednisolone Sodium Succinate 60 mg 12/29/20 18:00 01/02/21 06:44 Methylprednisolone Sod Succinate 125 Mg/2 Ml Inj IV 60 mg Q6HR TAMEKA Administration Morphine Sulfate 2 mg 12/20/20 23:15 01/01/21 21:01 Morphine 2 Mg/1 Ml Inj IV 2 mg Q4H PRN Administration Pain, Moderate (4-6) Ondansetron HCl 4 mg 12/20/20 23:15 Ondansetron 4 Mg/2 Ml Inj IV Q8H PRN Nausea And Vomiting Oxycodone/Acetaminophen 1 tab 12/21/20 16:00 12/27/20 22:49 Oxycodone /Acetaminophen 5-325mg Tab PO 1 tab Q6H PRN Administration Pain, Moderate (4-6) Sodium Chloride 10 ml 12/21/20 10:00 01/01/21 21:15 Sodium Chloride 0.9% 10 Ml Flush Syringe IV 10 ml BID TAMEKA Administration Sodium Chloride 10 ml 12/20/20 23:15 12/21/20 18:48 Sodium Chloride 0.9% 10 Ml Flush Syringe IV 10 ml PRN PRN Administration LINE FLUSH Sodium Chloride 1 applic 12/22/20 12:00 01/01/21 21:13 Patton Saline Nasal Gel 14.1 Gm NS 1 applic BID TAMEKA Administration Nutrition/Malnutrition Assess - Dietary Evaluation Nutrition/Malnutrition Findings: Nutrition Notes Start: 12/21/20 09:35 Freq: Status: Active Protocol: Document 12/31/20 11:20 MISHA (Rec: 12/31/20 11:25 MISHA [id number]) Co-Sign 12/31/20 11:20 CW Nutrition Notes Initial or Follow up Reassessment Current Diagnosis Diabetes,Hypertension, Respiratory Failure Other Pertinent Diagnosis pneu, COVID 19(+), SOB, Diabetic Neuropathy Current Diet Cardiac/Consistent CHO Labs/Tests No new labs Pertinent Medications Insulin Lasix Glipizide Solumedrol Height 5 ft 7 in Weight 131 kg Andreas Body Weight (kg) 61.36 BMI 45.2 Weight change and time frame Wt change noted, pt on lasix Weight Status Morbidly Obese Subjective/Other Information F/U for intakes and ONS. Per RN, pt consumed 25% breakfast and 100% ONS. Pt consuming 50% meals on average and 100% ONS . Per chart, pt to be weaned off Bipap as tolerated. Percent of energy/protein needs met: 100%/100% (PO and ONS) Burn Absent Trauma Absent GI Symptoms None Current % PO Fair (50-74%) Minimum of two criteria No physical signs of malnutrition #1 Nutrition Diagnosis Inadequate oral intake Diagnosis Progress(for reassessment Continues documentation) Is patient on ventilator? No Is Patient Ambulatory and/or Out of Bed Yes REE-([facility]-ambulatory/OOB) [ 2518.919 [id number]] Kcal/Kg value to use for calculation 15 Approximate Energy Requirements Using 1965 kcal/Kg Calculation Used for Recommendations Kcal/kg Additional Notes PRO needs: 77-96g (0.8-1g/kg AdBW 96 kg) Fluid needs: 1 mL/kcal or per MD Nutrition Intervention Change Diet Order: Continue current diet as ordered Add Supplement/Snack (indicate name/kcal Nepro BID /protein ) Provides kCal: 850 Provides Protein (gm) 38 Goal #1 Meet at least 75% of energy and protein needs via diet and ONS Anticipated Discharge Needs: Cardiac/Consistent CHO Follow-Up By: 01/04/21 Additional Comments F/U for stable intakes, Bipap wean
[2021-01-02] MEDS: INSULIN LISPRO 100 UNIT/ML SUB-Q SCH ×4 (08:30→22:22)
[2021-01-02] MEDS: glipiZIDE 10 MG TAB PO SCH ×2 (08:36→17:16)
[2021-01-02] MEDS: INSULIN NPH/REGULAR 70/30 INJ SUB-Q SCH ×2 (08:37→17:16)
[2021-01-02] MEDS: AYR SALINE NASAL GEL 14.1 GM NS SCH ×2 (11:00→22:22)
[2021-01-02] MEDS: FUROSEMIDE 40 MG/4 ML INJ IV SCH (11:00)
[2021-01-02] MEDS: GABAPENTIN 400 MG CAP PO SCH ×2 (11:00→21:10)
[2021-01-02] MEDS: amLODIPine 10 MG TAB PO SCH (11:00)
--- NOTE | 2021-01-02 11:55 | Progress Note ---
Assessment and Plan 55 y/o female with acute respiratory failure secondary to cOVID 19 with prior history of ILD on a CT in [facility] 01/02/21: Continue to avoid intubation at all costs. Continue high dose steroids. Given concern for ILD, may even need to consider pulse dose steroids but will discuss on rounds tomorrow. Lasix was given last night and yesterday morning. negative 1700 on yesterday. Please check labs in the am as I would like to give lasix again tonight. 01/01/21: Unfortunately, given her high risk for intubation, patient will not be able to eat. Nutrition has been an issue and we will discuss this on rounds. May need PPN. Continue steroids at current dosing. Will give an additional dose of lasix tonight. 12/31/20: will continue steroids today as same dose and frequency. No changes to lasix therapy. Need to keep patient as calm as possible to allow bipap to work to avoid intubation at all costs. Prognosis still remains guarded. 12/30/20: Continue steroids at 60q6. Continue daily lasix. may need to consider BID dosing to help with more volume removal if renal function will permit. Overall prognosis is very very guarded to poor, especially if the patient ends up on the mechanical ventilator. 12/29/20: Will increase steroids to q6 hour dosing to see if this helps. Prognosis is very very guarded. 12/28/20: Continue steroids and lasix, may need to ask renal about BID dosing for a few days to see if this will help. Prone as tolerated during the day and sleep prone at night. 1. Agree with change in steroids to solumedrol 60q8, will continue for now 2. Agree with daily lasix but goal should be daily net negative state. 3. Prone as tolerated during the day and sleep prone at night 4. Guarded prognosis Subjective Date of service: 01/02/21 Principal diagnosis: COVID-19 Interval history: Remains on HFNC with sats in the low 90's. Objective Vital Signs - 12hr 01/02/21 01/02/21 01/02/21 00:00 00:10 00:23 Temperature Pulse Rate 84 82 82 Pulse Rate [ From Monitor] Respiratory 23 26 H Rate Blood Pressure 100/72 100/72 O2 Sat by Pulse 96 Oximetry 01/02/21 01/02/21 01/02/21 01:00 01:30 02:00 Temperature Pulse Rate 80 78 78 Pulse Rate [ From Monitor] Respiratory 21 19 19 Rate Blood Pressure 109/73 109/73 103/70 O2 Sat by Pulse 97 95 Oximetry 01/02/21 01/02/21 01/02/21 02:16 02:30 02:46 Temperature Pulse Rate 92 H 76 87 Pulse Rate [ From Monitor] Respiratory 21 18 25 H Rate Blood Pressure 103/70 103/70 108/68 O2 Sat by Pulse 94 97 95 Oximetry 01/02/21 01/02/21 01/02/21 03:00 03:16 03:35 Temperature Pulse Rate 77 75 74 Pulse Rate [ From Monitor] Respiratory 17 18 27 H Rate Blood Pressure 103/59 103/59 85/46 O2 Sat by Pulse 99 95 Oximetry 01/02/21 01/02/21 01/02/21 03:46 03:55 04:00 Temperature 97.6 F Pulse Rate 79 80 Pulse Rate [ From Monitor] Respiratory 18 Rate Blood Pressure 106/76 O2 Sat by Pulse 97 Oximetry 01/02/21 01/02/21 01/02/21 04:15 04:16 04:30 Temperature Pulse Rate 80 79 Pulse Rate [ 80 From Monitor] Respiratory 15 15 19 Rate Blood Pressure 123/76 129/83 O2 Sat by Pulse 95 96 Oximetry 01/02/21 01/02/21 01/02/21 04:46 05:00 05:30 Temperature Pulse Rate 75 75 72 Pulse Rate [ From Monitor] Respiratory 15 17 16 Rate Blood Pressure 129/83 100/66 94/63 O2 Sat by Pulse 96 94 Oximetry 01/02/21 01/02/21 01/02/21 06:00 06:30 07:00 Temperature Pulse Rate 73 81 77 Pulse Rate [ From Monitor] Respiratory 16 20 21 Rate Blood Pressure 102/69 119/89 124/84 O2 Sat by Pulse 97 100 Oximetry 01/02/21 01/02/21 01/02/21 07:30 08:00 08:30 Temperature Pulse Rate 74 72 72 Pulse Rate [ From Monitor] Respiratory 17 18 18 Rate Blood Pressure 131/87 120/76 121/73 O2 Sat by Pulse 100 97 97 Oximetry 01/02/21 10:21 Temperature Pulse Rate Pulse Rate [ From Monitor] Respiratory Rate Blood Pressure O2 Sat by Pulse 92 Oximetry Constitutional: no acute distress, alert (obese), other (on BIPAP) Eyes: non-icteric ENT: oropharynx moist Neck: supple Effort: normal Ascultation: Bilateral: clear, diminished breath sounds (anteriorly) Cardiovascular: regular rate and rhythm (no mrg) Gastrointestinal: normoactive bowel sounds, soft, non-tender, non-distended Integumentary: normal Extremities: no cyanosis, no edema, pink and warm Neurologic: normal mental status, non-focal exam Psychiatric: mood appropriate, affect normal CBC and BMP: 12/27/20 04:25 12/29/20 05:12 ABG, PT/INR, D-dimer: ABG ABG pH 7.454 (7.320-7.450) H 12/30/20 18:03 POC ABG pCO2 49.7 mmHg (32.0-48.0) H 12/30/20 18:03 POC ABG pO2 59.0 mmHg (83-108) L 12/30/20 18:03 POC ABG HCO3 34.1 12/30/20 18:03 ABG O2 Saturation 89.9 (0-100) 12/30/20 18:03 PT/INR, D-dimer PT 13.1 Sec. (12.2-14.9) 12/21/20 05:50 INR 1.01 (0.87-1.13) 12/21/20 05:50 D-Dimer 4626.15 ng/mlDDU (0-234) H 12/28/20 15:43 Abnormal lab findings: Abnormal Labs 12/20/20 12/20/20 12/20/20 19:27 19:27 19:27 WBC 2.9 L RBC MCHC Plt Count 116 L Lymph % (Auto) 41.2 H Wilson % (Auto) 13.2 H Lymph # (Auto) Seg Neutrophils % Seg Neuts % (Manual) Lymphocytes % (Manual) Nucleated RBC % Seg Neutrophils # 1.3 L Seg Neutrophils # Man Lymphocytes # (Manual) D-Dimer 260.58 H ABG pH POC ABG pCO2 POC ABG pO2 ABG Oxyhemoglobin ABG Sodium ABG Glucose Sodium 135 L Potassium Chloride 96.1 L Carbon Dioxide BUN 23 H Creatinine 1.4 H Glucose 295 H POC Glucose Hemoglobin A1c Calcium 8.3 L Ferritin AST 125 H ALT 96 H Alkaline Phosphatase 323 H Lactate Dehydrogenase C-Reactive Protein Total Protein 8.7 H Albumin 3.7 L Arterial Blood Glucose Arterial Blood Ionized Calcium Urine Creatinine Coronavirus (PCR) 12/20/20 12/20/20 12/21/20 19:43 19:43 05:50 WBC RBC MCHC Plt Count Lymph % (Auto) Wilson % (Auto) Lymph # (Auto) Seg Neutrophils % Seg Neuts % (Manual) Lymphocytes % (Manual) Nucleated RBC % Seg Neutrophils # Seg Neutrophils # Man Lymphocytes # (Manual) D-Dimer ABG pH POC ABG pCO2 POC ABG pO2 ABG Oxyhemoglobin ABG Sodium ABG Glucose Sodium Potassium Chloride Carbon Dioxide BUN Creatinine Glucose 297 H POC Glucose Hemoglobin A1c 10.3 H Calcium Ferritin 1420.0 H AST ALT Alkaline Phosphatase Lactate Dehydrogenase 491 H C-Reactive Protein 5.50 H Total Protein Albumin Arterial Blood Glucose Arterial Blood Ionized Calcium Urine Creatinine Coronavirus (PCR) 12/21/20 12/21/20 12/21/20 05:50 05:50 08:04 WBC 1.6 L* RBC 3.40 L MCHC Plt Count 104 L Lymph % (Auto) Wilson % (Auto) Lymph # (Auto) Seg Neutrophils % Seg Neuts % (Manual) 82.0 H Lymphocytes % (Manual) Nucleated RBC % Seg Neutrophils # Seg Neutrophils # Man 1.3 L Lymphocytes # (Manual) 0.3 L D-Dimer ABG pH POC ABG pCO2 POC ABG pO2 ABG Oxyhemoglobin ABG Sodium ABG Glucose Sodium 132 L Potassium 5.7 H D Chloride 95.7 L Carbon Dioxide BUN 33 H Creatinine 1.7 H Glucose 500 H POC Glucose 483 H Hemoglobin A1c Calcium 7.7 L Ferritin AST ALT Alkaline Phosphatase Lactate Dehydrogenase C-Reactive Protein Total Protein Albumin Arterial Blood Glucose Arterial Blood Ionized Calcium Urine Creatinine Coronavirus (PCR) 12/21/20 12/21/20 12/21/20 10:28 12:05 16:54 WBC RBC MCHC Plt Count Lymph % (Auto) Wilson % (Auto) Lymph # (Auto) Seg Neutrophils % Seg Neuts % (Manual) Lymphocytes % (Manual) Nucleated RBC % Seg Neutrophils # Seg Neutrophils # Man Lymphocytes # (Manual) D-Dimer ABG pH POC ABG pCO2 POC ABG pO2 ABG Oxyhemoglobin ABG Sodium ABG Glucose Sodium Potassium Chloride Carbon Dioxide BUN Creatinine Glucose POC Glucose 482 H 374 H Hemoglobin A1c Calcium Ferritin AST ALT Alkaline Phosphatase Lactate Dehydrogenase C-Reactive Protein Total Protein Albumin Arterial Blood Glucose Arterial Blood Ionized Calcium Urine Creatinine Coronavirus (PCR) Positive A 12/21/20 12/21/20 12/22/20 18:24 22:12 03:00 WBC RBC MCHC Plt Count Lymph % (Auto) Wilson % (Auto) Lymph # (Auto) Seg Neutrophils % Seg Neuts % (Manual) Lymphocytes % (Manual) Nucleated RBC % Seg Neutrophils # Seg Neutrophils # Man Lymphocytes # (Manual) D-Dimer ABG pH POC ABG pCO2 POC ABG pO2 ABG Oxyhemoglobin ABG Sodium ABG Glucose Sodium 131 L Potassium Chloride 95.2 L Carbon Dioxide BUN 37 H Creatinine 1.4 H Glucose 417 H POC Glucose 358 H Hemoglobin A1c Calcium 7.5 L Ferritin AST 82 H ALT 69 H Alkaline Phosphatase 262 H Lactate Dehydrogenase C-Reactive Protein Total Protein Albumin 3.0 L Arterial Blood Glucose Arterial Blood Ionized Calcium Urine Creatinine 117.9 H Coronavirus (PCR) 12/22/20 12/22/20 12/22/20 05:29 08:19 11:18 WBC RBC MCHC Plt Count Lymph % (Auto) Wilson % (Auto) Lymph # (Auto) Seg Neutrophils % Seg Neuts % (Manual) Lymphocytes % (Manual) Nucleated RBC % Seg Neutrophils # Seg Neutrophils # Man Lymphocytes # (Manual) D-Dimer ABG pH POC ABG pCO2 POC ABG pO2 ABG Oxyhemoglobin ABG Sodium ABG Glucose Sodium Potassium Chloride Carbon Dioxide BUN 34 H Creatinine 1.3 H Glucose 169 H POC Glucose 136 H 132 H Hemoglobin A1c Calcium 7.5 L Ferritin AST 74 H ALT 60 H Alkaline Phosphatase 249 H Lactate Dehydrogenase C-Reactive Protein Total Protein Albumin 3.1 L Arterial Blood Glucose Arterial Blood Ionized Calcium Urine Creatinine Coronavirus (PCR) 12/22/20 12/22/20 12/22/20 14:18 14:18 16:36 WBC RBC MCHC Plt Count Lymph % (Auto) Wilson % (Auto) Lymph # (Auto) Seg Neutrophils % Seg Neuts % (Manual) Lymphocytes % (Manual) Nucleated RBC % Seg Neutrophils # Seg Neutrophils # Man Lymphocytes # (Manual) D-Dimer ABG pH POC ABG pCO2 POC ABG pO2 ABG Oxyhemoglobin ABG Sodium ABG Glucose Sodium Potassium Chloride Carbon Dioxide BUN Creatinine Glucose POC Glucose 440 H Hemoglobin A1c Calcium Ferritin 1295.0 H AST ALT Alkaline Phosphatase Lactate Dehydrogenase 620 H C-Reactive Protein 2.70 H Total Protein Albumin Arterial Blood Glucose Arterial Blood Ionized Calcium Urine Creatinine Coronavirus (PCR) 12/22/20 12/23/20 12/23/20 21:07 08:09 11:30 WBC RBC MCHC Plt Count Lymph % (Auto) Wilson % (Auto) Lymph # (Auto) Seg Neutrophils % Seg Neuts % (Manual) Lymphocytes % (Manual) Nucleated RBC % Seg Neutrophils # Seg Neutrophils # Man Lymphocytes # (Manual) D-Dimer ABG pH POC ABG pCO2 POC ABG pO2 ABG Oxyhemoglobin ABG Sodium ABG Glucose Sodium Potassium Chloride Carbon Dioxide BUN Creatinine Glucose POC Glucose 493 H 156 H 185 H Hemoglobin A1c Calcium Ferritin AST ALT Alkaline Phosphatase Lactate Dehydrogenase C-Reactive Protein Total Protein Albumin Arterial Blood Glucose Arterial Blood Ionized Calcium Urine Creatinine Coronavirus (PCR) 12/23/20 12/23/20 12/23/20 14:09 14:09 16:26 WBC 1.8 L* RBC 3.45 L MCHC Plt Count 114 L Lymph % (Auto) Wilson % (Auto) Lymph # (Auto) Seg Neutrophils % Seg Neuts % (Manual) 87.0 H Lymphocytes % (Manual) 3.0 L Nucleated RBC % 1.0 H Seg Neutrophils # Seg Neutrophils # Man 1.6 L Lymphocytes # (Manual) 0.1 L D-Dimer ABG pH POC ABG pCO2 POC ABG pO2 ABG Oxyhemoglobin ABG Sodium ABG Glucose Sodium Potassium Chloride Carbon Dioxide BUN 19 H Creatinine Glucose 292 H POC Glucose 351 H Hemoglobin A1c Calcium 7.4 L Ferritin AST 71 H ALT Alkaline Phosphatase 264 H Lactate Dehydrogenase C-Reactive Protein Total Protein Albumin 3.0 L Arterial Blood Glucose Arterial Blood Ionized Calcium Urine Creatinine Coronavirus (PCR) 12/23/20 12/24/20 12/24/20 21:11 08:21 11:58 WBC RBC MCHC Plt Count Lymph % (Auto) Wilson % (Auto) Lymph # (Auto) Seg Neutrophils % Seg Neuts % (Manual) Lymphocytes % (Manual) Nucleated RBC % Seg Neutrophils # Seg Neutrophils # Man Lymphocytes # (Manual) D-Dimer ABG pH POC ABG pCO2 POC ABG pO2 ABG Oxyhemoglobin ABG Sodium ABG Glucose Sodium Potassium Chloride Carbon Dioxide BUN Creatinine Glucose POC Glucose 288 H 286 H 277 H Hemoglobin A1c Calcium Ferritin AST ALT Alkaline Phosphatase Lactate Dehydrogenase C-Reactive Protein Total Protein Albumin Arterial Blood Glucose Arterial Blood Ionized Calcium Urine Creatinine Coronavirus (PCR) 12/24/20 12/24/20 12/24/20 12:29 12:29 16:05 WBC 2.5 L RBC 3.49 L MCHC 35 H Plt Count 132 L Lymph % (Auto) Wilson % (Auto) 7.6 H Lymph # (Auto) 0.4 L Seg Neutrophils % 74.7 H Seg Neuts % (Manual) Lymphocytes % (Manual) Nucleated RBC % Seg Neutrophils # Seg Neutrophils # Man Lymphocytes # (Manual) D-Dimer ABG pH POC ABG pCO2 POC ABG pO2 ABG Oxyhemoglobin ABG Sodium ABG Glucose Sodium Potassium Chloride Carbon Dioxide BUN Creatinine Glucose 256 H POC Glucose 282 H Hemoglobin A1c Calcium 7.8 L Ferritin AST 50 H ALT Alkaline Phosphatase 262 H Lactate Dehydrogenase C-Reactive Protein Total Protein Albumin 2.8 L Arterial Blood Glucose Arterial Blood Ionized Calcium Urine Creatinine Coronavirus (PCR) 12/24/20 12/25/20 12/25/20 22:01 07:58 11:38 WBC RBC MCHC Plt Count Lymph % (Auto) Wilson % (Auto) Lymph # (Auto) Seg Neutrophils % Seg Neuts % (Manual) Lymphocytes % (Manual) Nucleated RBC % Seg Neutrophils # Seg Neutrophils # Man Lymphocytes # (Manual) D-Dimer ABG pH POC ABG pCO2 POC ABG pO2 ABG Oxyhemoglobin ABG Sodium ABG Glucose Sodium Potassium Chloride Carbon Dioxide BUN Creatinine Glucose POC Glucose 366 H 278 H 325 H Hemoglobin A1c Calcium Ferritin AST ALT Alkaline Phosphatase Lactate Dehydrogenase C-Reactive Protein Total Protein Albumin Arterial Blood Glucose Arterial Blood Ionized Calcium Urine Creatinine Coronavirus (PCR) 12/25/20 12/25/20 12/26/20 15:47 21:31 04:29 WBC RBC MCHC Plt Count Lymph % (Auto) Wilson % (Auto) Lymph # (Auto) Seg Neutrophils % Seg Neuts % (Manual) Lymphocytes % (Manual) Nucleated RBC % Seg Neutrophils # Seg Neutrophils # Man Lymphocytes # (Manual) D-Dimer ABG pH POC ABG pCO2 POC ABG pO2 ABG Oxyhemoglobin ABG Sodium ABG Glucose Sodium Potassium Chloride Carbon Dioxide BUN 22 H Creatinine Glucose 327 H POC Glucose 316 H 339 H Hemoglobin A1c Calcium 7.9 L Ferritin AST ALT Alkaline Phosphatase Lactate Dehydrogenase C-Reactive Protein Total Protein Albumin Arterial Blood Glucose Arterial Blood Ionized Calcium Urine Creatinine Coronavirus (PCR) 12/26/20 12/26/20 12/26/20 07:42 11:08 11:08 WBC RBC MCHC Plt Count Lymph % (Auto) Wilson % (Auto) Lymph # (Auto) Seg Neutrophils % Seg Neuts % (Manual) Lymphocytes % (Manual) Nucleated RBC % Seg Neutrophils # Seg Neutrophils # Man Lymphocytes # (Manual) D-Dimer 1954.54 H ABG pH POC ABG pCO2 POC ABG pO2 ABG Oxyhemoglobin ABG Sodium ABG Glucose Sodium Potassium Chloride Carbon Dioxide BUN Creatinine Glucose POC Glucose 353 H Hemoglobin A1c Calcium Ferritin 932.1 H AST ALT Alkaline Phosphatase Lactate Dehydrogenase C-Reactive Protein Total Protein Albumin Arterial Blood Glucose Arterial Blood Ionized Calcium Urine Creatinine Coronavirus (PCR) 12/26/20 12/26/20 12/26/20 11:08 11:57 16:40 WBC RBC MCHC Plt Count Lymph % (Auto) Wilson % (Auto) Lymph # (Auto) Seg Neutrophils % Seg Neuts % (Manual) Lymphocytes % (Manual) Nucleated RBC % Seg Neutrophils # Seg Neutrophils # Man Lymphocytes # (Manual) D-Dimer ABG pH POC ABG pCO2 POC ABG pO2 ABG Oxyhemoglobin ABG Sodium ABG Glucose Sodium Potassium Chloride Carbon Dioxide BUN Creatinine Glucose POC Glucose 318 H 352 H Hemoglobin A1c Calcium Ferritin AST ALT Alkaline Phosphatase Lactate Dehydrogenase 698 H C-Reactive Protein 3.70 H Total Protein Albumin Arterial Blood Glucose Arterial Blood Ionized Calcium Urine Creatinine Coronavirus (PCR) 12/26/20 12/27/20 12/27/20 21:29 04:25 04:25 WBC RBC MCHC Plt Count Lymph % (Auto) 6.4 L Wilson % (Auto) 7.5 H Lymph # (Auto) 0.5 L Seg Neutrophils % 85.9 H Seg Neuts % (Manual) Lymphocytes % (Manual) Nucleated RBC % Seg Neutrophils # Seg Neutrophils # Man Lymphocytes # (Manual) D-Dimer ABG pH POC ABG pCO2 POC ABG pO2 ABG Oxyhemoglobin ABG Sodium ABG Glucose Sodium Potassium 5.4 H D Chloride Carbon Dioxide BUN 30 H Creatinine Glucose 273 H POC Glucose 376 H Hemoglobin A1c Calcium 8.1 L Ferritin AST ALT Alkaline Phosphatase 242 H Lactate Dehydrogenase C-Reactive Protein Total Protein Albumin 2.7 L Arterial Blood Glucose Arterial Blood Ionized Calcium Urine Creatinine Coronavirus (PCR) 12/27/20 12/27/20 12/27/20 08:05 11:39 17:28 WBC RBC MCHC Plt Count Lymph % (Auto) Wilson % (Auto) Lymph # (Auto) Seg Neutrophils % Seg Neuts % (Manual) Lymphocytes % (Manual) Nucleated RBC % Seg Neutrophils # Seg Neutrophils # Man Lymphocytes # (Manual) D-Dimer ABG pH POC ABG pCO2 POC ABG pO2 ABG Oxyhemoglobin ABG Sodium ABG Glucose Sodium Potassium Chloride Carbon Dioxide BUN Creatinine Glucose POC Glucose 287 H 359 H 490 H Hemoglobin A1c Calcium Ferritin AST ALT Alkaline Phosphatase Lactate Dehydrogenase C-Reactive Protein Total Protein Albumin Arterial Blood Glucose Arterial Blood Ionized Calcium Urine Creatinine Coronavirus (PCR) 12/27/20 12/27/20 12/28/20 21:43 21:53 04:41 WBC RBC MCHC Plt Count Lymph % (Auto) Wilson % (Auto) Lymph # (Auto) Seg Neutrophils % Seg Neuts % (Manual) Lymphocytes % (Manual) Nucleated RBC % Seg Neutrophils # Seg Neutrophils # Man Lymphocytes # (Manual) D-Dimer ABG pH POC ABG pCO2 POC ABG pO2 ABG Oxyhemoglobin ABG Sodium ABG Glucose Sodium Potassium Chloride Carbon Dioxide 31 H BUN 35 H Creatinine Glucose 328 H POC Glucose 503 H 438 H Hemoglobin A1c Calcium Ferritin AST ALT Alkaline Phosphatase Lactate Dehydrogenase C-Reactive Protein Total Protein Albumin Arterial Blood Glucose Arterial Blood Ionized Calcium Urine Creatinine Coronavirus (PCR) 12/28/20 12/28/20 12/28/20 07:58 11:40 15:43 WBC RBC MCHC Plt Count Lymph % (Auto) Wilson % (Auto) Lymph # (Auto) Seg Neutrophils % Seg Neuts % (Manual) Lymphocytes % (Manual) Nucleated RBC % Seg Neutrophils # Seg Neutrophils # Man Lymphocytes # (Manual) D-Dimer 4626.15 H ABG pH POC ABG pCO2 POC ABG pO2 ABG Oxyhemoglobin ABG Sodium ABG Glucose Sodium Potassium Chloride Carbon Dioxide BUN Creatinine Glucose POC Glucose 321 H 455 H Hemoglobin A1c Calcium Ferritin AST ALT Alkaline Phosphatase Lactate Dehydrogenase C-Reactive Protein Total Protein Albumin Arterial Blood Glucose Arterial Blood Ionized Calcium Urine Creatinine Coronavirus (PCR) 12/28/20 12/28/20 12/28/20 15:43 15:43 17:10 WBC RBC MCHC Plt Count Lymph % (Auto) Wilson % (Auto) Lymph # (Auto) Seg Neutrophils % Seg Neuts % (Manual) Lymphocytes % (Manual) Nucleated RBC % Seg Neutrophils # Seg Neutrophils # Man Lymphocytes # (Manual) D-Dimer ABG pH POC ABG pCO2 POC ABG pO2 ABG Oxyhemoglobin ABG Sodium ABG Glucose Sodium Potassium Chloride Carbon Dioxide BUN Creatinine Glucose POC Glucose 291 H Hemoglobin A1c Calcium Ferritin 1030.0 H AST ALT Alkaline Phosphatase Lactate Dehydrogenase 838 H C-Reactive Protein Total Protein Albumin Arterial Blood Glucose Arterial Blood Ionized Calcium Urine Creatinine Coronavirus (PCR) 12/28/20 12/29/20 12/29/20 21:42 05:12 08:25 WBC RBC MCHC Plt Count Lymph % (Auto) Wilson % (Auto) Lymph # (Auto) Seg Neutrophils % Seg Neuts % (Manual) Lymphocytes % (Manual) Nucleated RBC % Seg Neutrophils # Seg Neutrophils # Man Lymphocytes # (Manual) D-Dimer ABG pH POC ABG pCO2 POC ABG pO2 ABG Oxyhemoglobin ABG Sodium ABG Glucose Sodium 146 H Potassium Chloride Carbon Dioxide 32 H BUN 34 H Creatinine Glucose 126 H POC Glucose 240 H 176 H Hemoglobin A1c Calcium Ferritin AST ALT Alkaline Phosphatase Lactate Dehydrogenase C-Reactive Protein Total Protein Albumin Arterial Blood Glucose Arterial Blood Ionized Calcium Urine Creatinine Coronavirus (PCR) 12/29/20 12/29/20 12/29/20 11:24 16:49 21:39 WBC RBC MCHC Plt Count Lymph % (Auto) Wilson % (Auto) Lymph # (Auto) Seg Neutrophils % Seg Neuts % (Manual) Lymphocytes % (Manual) Nucleated RBC % Seg Neutrophils # Seg Neutrophils # Man Lymphocytes # (Manual) D-Dimer ABG pH POC ABG pCO2 POC ABG pO2 ABG Oxyhemoglobin ABG Sodium ABG Glucose Sodium Potassium Chloride Carbon Dioxide BUN Creatinine Glucose POC Glucose 209 H 226 H 169 H Hemoglobin A1c Calcium Ferritin AST ALT Alkaline Phosphatase Lactate Dehydrogenase C-Reactive Protein Total Protein Albumin Arterial Blood Glucose Arterial Blood Ionized Calcium Urine Creatinine Coronavirus (PCR) 12/30/20 12/30/20 12/30/20 07:34 12:17 16:29 WBC RBC MCHC Plt Count Lymph % (Auto) Wilson % (Auto) Lymph # (Auto) Seg Neutrophils % Seg Neuts % (Manual) Lymphocytes % (Manual) Nucleated RBC % Seg Neutrophils # Seg Neutrophils # Man Lymphocytes # (Manual) D-Dimer ABG pH POC ABG pCO2 POC ABG pO2 ABG Oxyhemoglobin ABG Sodium ABG Glucose Sodium Potassium Chloride Carbon Dioxide BUN Creatinine Glucose POC Glucose 206 H 261 H 229 H Hemoglobin A1c Calcium Ferritin AST ALT Alkaline Phosphatase Lactate Dehydrogenase C-Reactive Protein Total Protein Albumin Arterial Blood Glucose Arterial Blood Ionized Calcium Urine Creatinine Coronavirus (PCR) 12/30/20 12/30/20 12/31/20 18:03 23:13 08:43 WBC RBC MCHC Plt Count Lymph % (Auto) Wilson % (Auto) Lymph # (Auto) Seg Neutrophils % Seg Neuts % (Manual) Lymphocytes % (Manual) Nucleated RBC % Seg Neutrophils # Seg Neutrophils # Man Lymphocytes # (Manual) D-Dimer ABG pH 7.454 H POC ABG pCO2 49.7 H POC ABG pO2 59.0 L ABG Oxyhemoglobin 88.6 L ABG Sodium 146.4 H ABG Glucose 252 H Sodium Potassium Chloride Carbon Dioxide BUN Creatinine Glucose POC Glucose 188 H 191 H Hemoglobin A1c Calcium Ferritin AST ALT Alkaline Phosphatase Lactate Dehydrogenase C-Reactive Protein Total Protein Albumin Arterial Blood Glucose 252 H Arterial Blood Ionized Calcium 4.5 L Urine Creatinine Coronavirus (PCR) 12/31/20 12/31/20 12/31/20 11:57 16:57 21:37 WBC RBC MCHC Plt Count Lymph % (Auto) Wilson % (Auto) Lymph # (Auto) Seg Neutrophils % Seg Neuts % (Manual) Lymphocytes % (Manual) Nucleated RBC % Seg Neutrophils # Seg Neutrophils # Man Lymphocytes # (Manual) D-Dimer ABG pH POC ABG pCO2 POC ABG pO2 ABG Oxyhemoglobin ABG Sodium ABG Glucose Sodium Potassium Chloride Carbon Dioxide BUN Creatinine Glucose POC Glucose 185 H 171 H 136 H Hemoglobin A1c Calcium Ferritin AST ALT Alkaline Phosphatase Lactate Dehydrogenase C-Reactive Protein Total Protein Albumin Arterial Blood Glucose Arterial Blood Ionized Calcium Urine Creatinine Coronavirus (PCR) 01/01/21 01/01/21 01/01/21 08:03 11:55 17:06 WBC RBC MCHC Plt Count Lymph % (Auto) Wilson % (Auto) Lymph # (Auto) Seg Neutrophils % Seg Neuts % (Manual) Lymphocytes % (Manual) Nucleated RBC % Seg Neutrophils # Seg Neutrophils # Man Lymphocytes # (Manual) D-Dimer ABG pH POC ABG pCO2 POC ABG pO2 ABG Oxyhemoglobin ABG Sodium ABG Glucose Sodium Potassium Chloride Carbon Dioxide BUN Creatinine Glucose POC Glucose 160 H 155 H 193 H Hemoglobin A1c Calcium Ferritin AST ALT Alkaline Phosphatase Lactate Dehydrogenase C-Reactive Protein Total Protein Albumin Arterial Blood Glucose Arterial Blood Ionized Calcium Urine Creatinine Coronavirus (PCR) 01/01/21 22:20 WBC RBC MCHC Plt Count Lymph % (Auto) Wilson % (Auto) Lymph # (Auto) Seg Neutrophils % Seg Neuts % (Manual) Lymphocytes % (Manual) Nucleated RBC % Seg Neutrophils # Seg Neutrophils # Man Lymphocytes # (Manual) D-Dimer ABG pH POC ABG pCO2 POC ABG pO2 ABG Oxyhemoglobin ABG Sodium ABG Glucose Sodium Potassium Chloride Carbon Dioxide BUN Creatinine Glucose POC Glucose 316 H Hemoglobin A1c Calcium Ferritin AST ALT Alkaline Phosphatase Lactate Dehydrogenase C-Reactive Protein Total Protein Albumin Arterial Blood Glucose Arterial Blood Ionized Calcium Urine Creatinine Coronavirus (PCR)
--- NOTE | 2021-01-02 12:09 | Progress Note ---
Subjective Date of service: 01/02/21 Principal diagnosis: COVID-19 Objective - Vital Signs Vital signs: Vital Signs - 12hr 01/02/21 01/02/21 01/02/21 00:10 00:23 01:00 Temperature Pulse Rate 82 82 80 Pulse Rate [ From Monitor] Respiratory 26 H 21 Rate Blood Pressure 100/72 109/73 O2 Sat by Pulse 96 Oximetry 01/02/21 01/02/21 01/02/21 01:30 02:00 02:16 Temperature Pulse Rate 78 78 92 H Pulse Rate [ From Monitor] Respiratory 19 19 21 Rate Blood Pressure 109/73 103/70 103/70 O2 Sat by Pulse 97 95 94 Oximetry 01/02/21 01/02/21 01/02/21 02:30 02:46 03:00 Temperature Pulse Rate 76 87 77 Pulse Rate [ From Monitor] Respiratory 18 25 H 17 Rate Blood Pressure 103/70 108/68 103/59 O2 Sat by Pulse 97 95 Oximetry 01/02/21 01/02/21 01/02/21 03:16 03:35 03:46 Temperature Pulse Rate 75 74 79 Pulse Rate [ From Monitor] Respiratory 18 27 H 18 Rate Blood Pressure 103/59 85/46 106/76 O2 Sat by Pulse 99 95 97 Oximetry 01/02/21 01/02/21 01/02/21 03:55 04:00 04:15 Temperature 97.6 F Pulse Rate 80 Pulse Rate [ 80 From Monitor] Respiratory 15 Rate Blood Pressure O2 Sat by Pulse Oximetry 01/02/21 01/02/21 01/02/21 04:16 04:30 04:46 Temperature Pulse Rate 80 79 75 Pulse Rate [ From Monitor] Respiratory 15 19 15 Rate Blood Pressure 123/76 129/83 129/83 O2 Sat by Pulse 95 96 96 Oximetry 01/02/21 01/02/21 01/02/21 05:00 05:30 06:00 Temperature Pulse Rate 75 72 73 Pulse Rate [ From Monitor] Respiratory 17 16 16 Rate Blood Pressure 100/66 94/63 102/69 O2 Sat by Pulse 94 97 Oximetry 01/02/21 01/02/21 01/02/21 06:30 07:00 07:30 Temperature Pulse Rate 81 77 74 Pulse Rate [ From Monitor] Respiratory 20 21 17 Rate Blood Pressure 119/89 124/84 131/87 O2 Sat by Pulse 100 100 Oximetry 01/02/21 01/02/21 01/02/21 08:00 08:30 10:21 Temperature Pulse Rate 72 72 Pulse Rate [ From Monitor] Respiratory 18 18 Rate Blood Pressure 120/76 121/73 O2 Sat by Pulse 97 97 92 Oximetry - Lab 12/27/20 04:25 12/29/20 05:12 Most recent lab results ABG pH 7.454 (7.320-7.450) H 12/30/20 18:03 ABG O2 Saturation 89.9 (0-100) 12/30/20 18:03 Calcium 8.8 mg/dL (8.4-10.2) 12/29/20 05:12 Magnesium 1.90 mg/dL (1.7-2.3) 12/26/20 04:29 Urine Creatinine 117.9 mg/dL (0.1-20.0) H 12/22/20 03:00 Urine Sodium 67 mmol/L 12/22/20 03:00 Medications & Allergies - Medications Allergies/Adverse Reactions: Allergies No Known Allergies Allergy (Verified 12/29/14 22:38) Home Medications: Home Medications Medication Instructions Recorded Confirmed Last Taken Type Cyclobenzaprine [Flexeril 10 MG 10 mg PO QHS PRN 12/21/20 12/21/20 Unknown History TAB] Gabapentin [Neurontin] 800 mg PO TID 12/21/20 12/21/20 12/20/20 History metFORMIN [Glucophage] 1,000 mg PO BID 12/21/20 12/21/20 12/20/20 History traMADoL [Ultram 50 MG tab] 50 mg PO BID PRN MDD 100 12/21/20 12/21/20 Unknown History Levothyroxine 137 mcg PO QDAY 12/26/20 12/26/20 12/20/20 08:00 History Active Medications: Generic Name Dose Route Start Last Admin Trade Name Freq PRN Reason Stop Dose Admin Acetaminophen 650 mg 12/20/20 23:15 12/24/20 09:40 Acetaminophen 325 Mg Tab PO 650 mg Q4H PRN Administration Pain MILD(1-3)/Fever >100.5/VARGAS Albuterol 2.5 mg 12/21/20 12:00 Albuterol 2.5 Mg/3 Ml Nebu IH Q4HRT PRN Shortness Of Breath Amlodipine Besylate 10 mg 12/26/20 14:00 01/01/21 10:00 Amlodipine 10 Mg Tab PO Not Given QDAY TAMEKA Dextrose 50 ml 12/20/20 23:15 Dextrose 50% In Water (25gm) 50 Ml Syringe IV Q30MIN PRN Hypoglycemia Protocol Enoxaparin Sodium 40 mg 12/21/20 22:00 01/01/21 21:01 Enoxaparin 40 Mg/0.4 Ml Inj SUB-Q 40 mg QDAY@2200 TAMEKA Administration Protocol Furosemide 40 mg 12/26/20 14:00 01/01/21 10:00 Furosemide 40 Mg/4 Ml Inj IV 40 mg QDAY TAMEKA Administration Gabapentin 800 mg 12/21/20 22:00 01/01/21 21:01 Gabapentin 400 Mg Cap PO 800 mg BID TAMEKA Administration Glipizide 10 mg 12/21/20 10:00 01/02/21 08:36 Glipizide 10 Mg Tab PO 10 mg BIDDIAB TAMEKA Administration Guaifenesin 200 mg 12/21/20 16:00 01/01/21 21:01 Guaifenesin 100 Mg/5 Ml Oral Liqd PO 200 mg Q4H PRN Administration Cough Dexmedetomidine HCl 400 mcg/ 104 mls @ 6.952 mls/hr 12/28/20 15:00 01/02/21 03:12 Sodium Chloride IV 0.2 mcg/kg/hr TITRATE TAMEKA 6.952 mls/hr Administration Protocol 0.2 MCG/KG/HR Insulin Human Isoph/Insulin Regular 25 unit 12/28/20 09:00 01/02/21 08:37 Insulin Nph/Regular 70/30 Inj SUB-Q 25 unit BIDDIAB TAMEKA Administration Insulin Human Lispro 0 unit 12/21/20 07:30 01/02/21 08:30 Insulin Lispro 100 Unit/Ml SUB-Q 6 unit ACHS TAMEKA Administration Protocol Lorazepam 0.5 mg 12/23/20 20:12 01/01/21 22:58 Lorazepam 2 Mg/Ml Vial IV 0.5 mg Q6H PRN Administration Anxiety Magnesium Hydroxide 30 ml 12/20/20 23:15 Magnesium Hydroxide (Mom) Oral Liqd Udc PO Q4H PRN Constipation Methylprednisolone Sodium Succinate 60 mg 12/29/20 18:00 01/02/21 06:44 Methylprednisolone Sod Succinate 125 Mg/2 Ml Inj IV 60 mg Q6HR TAMEKA Administration Morphine Sulfate 2 mg 12/20/20 23:15 01/01/21 21:01 Morphine 2 Mg/1 Ml Inj IV 2 mg Q4H PRN Administration Pain, Moderate (4-6) Ondansetron HCl 4 mg 12/20/20 23:15 Ondansetron 4 Mg/2 Ml Inj IV Q8H PRN Nausea And Vomiting Oxycodone/Acetaminophen 1 tab 12/21/20 16:00 12/27/20 22:49 Oxycodone /Acetaminophen 5-325mg Tab PO 1 tab Q6H PRN Administration Pain, Moderate (4-6) Sodium Chloride 10 ml 12/21/20 10:00 01/01/21 21:15 Sodium Chloride 0.9% 10 Ml Flush Syringe IV 10 ml BID TAMEKA Administration Sodium Chloride 10 ml 12/20/20 23:15 12/21/20 18:48 Sodium Chloride 0.9% 10 Ml Flush Syringe IV 10 ml PRN PRN Administration LINE FLUSH Sodium Chloride 1 applic 12/22/20 12:00 01/01/21 21:13 [place] Saline Nasal Gel 14.1 Gm NS 1 applic BID TAMEKA Administration
[2021-01-02] MEDS: guaiFENesin 100 MG/5 ML ORAL LIQD PO PRN (21:10)
[2021-01-02] MEDS: ENOXAPARIN 40 MG/0.4 ML INJ SUB-Q SCH (21:10)
[2021-01-02] MEDS: MORPHINE 2 MG/1 ML INJ IV PRN (21:11)
[2021-01-02] MEDS: LORazepam 2 MG/ML VIAL IV PRN (21:12)
[2021-01-03] MEDS: methylPREDNISolone Sod Succinate 125 MG/2 ML INJ IV SCH ×5 (00:48→23:21)
[2021-01-03] MEDS: MORPHINE 2 MG/1 ML INJ IV PRN (06:38)
[2021-01-03 07:42] LABS: Calcium 8.7 mg/dL (8.4-10.2)
--- NOTE | 2021-01-03 08:49 | Progress Note ---
Assessment and Plan Assessment and plan: Today patient is tolerating high flow nasal cannula oxygen with intermittent BiPAP. Patient feels slightly better, able to take some sips of nutrition supplements, and small bites of food During the time of HFNC --COVID-19 test positive on 12/21/2020 --Acute hypoxic respiratory failure; High flow nasal cannula oxygen with intermittent BiPAP Due to severe COVID-19 infection,h/o ILD Obesity hypoventilation syndrome Wean oxygen as tolerated, prone positioning encouraged --Sepsis due to COVID-19 pneumonia Procalcitonin low, no need for antibiotics --Severe, COVID-19 infection;Guarded prognosis Completed remdesivir Received Tocilizumab Continue IV steroids per pulmonary Monitor inflammatory markers Prone positioning as tolerated Home oxygen evaluation prior to discharge --Elevated D-dimers; due to COVID-19 Negative PE, negative DVT --Hyponatremia; dehydration, poor oral intake Advised plenty free water as tolerated --Acute kidney injury; vasomotor nephropathy Secondary to dehydration, gentle hydration, free water as needed --Diabetes mellitus type 2; uncontrolled,A1c 10.3 Moderate control, Accu-Chek sliding scale coverage ADA diet Increase 7030 to 30 units subcu twice a day Diabetic education,diet education when patient is more stable --Morbid obesity; BMI 46.2 Patient needs weight reduction when medically stable --OHS/JERMAINE; due to morbid obesity Patient needs outpatient sleep study to rule out JERMAINE CPAP/BiPAP at night and as needed --Elevated LFTs probably Covid related; Present on admission, resolved . --DVT prophylaxis; Lovenox Closely monitor the patient and adjust the management as needed Vice President Financial recommendations noted and appreciated Plan of care reviewed with the patient and her nurse Patient is critically ill with guarded prognosis Patient and family aware The high probability of a clinically significant, sudden or life threatening deterioration of the [multi] system(s) required my full and direct attention, intervention and personal management. The aggregate critical care time was [33] minutes. This time is in addition to time spent performing reported procedures but includes the following: [x] Data Review and interpretation [x] Patient assessment and monitoring of vital signs [x] Documentation [x] Medication orders and management Brief history and daily patient care; Morbidly obese 55 y/o -[place] female patient past medical history of ILD on CT scan[per [facility] records] was admitted with worsening shortness of breath noted to have severe COVID-19 pneumonia. With acute hypoxic respiratory failure, high flow nasal oxygen and BiPAP dependent. ID pulmonary following 12/21/2020. Follow-up COVID-19 testing. Continue to trend inflammatory markers. Continue dexamethasone. ID and pulmonary consultation pending. Patient currently with 6 L/min O2 FiO2 44%. 12/22/2020. COVID-19 testing found to be positive. Continue to trend inflammatory markers. Continue dexamethasone. Patient requiring more oxygen with high flow nasal cannula 30 L/min and FiO2 100%. ID and pulmonary following. 12/23/2020. Patient with increasing oxygen requirements with high flow nasal cannula 40 L/min with FiO2 100%. Continue dexamethasone per ID recommendations. We will transfer to IM for closer monitoring. 12/24/2020. Patient was transferred to [facility] for closer monitoring yesterday. Patient currently requiring BiPAP with IPAP 16 and EPAP of 8 with FiO2 100%. Continue dexamethasone and remdesivir. Continue to trend inflammatory markers. Continue anticoagulation. Prone position as possible. Continue ceftriaxone and azithromycin per ID recommendations. 12/25/2020. Patient currently requiring BiPAP with IPAP 16 and EPAP of 8 with FiO2 100%. Continue IV steroids of Solu-Medrol 60 mg every 8 hour and remdesivir. Continue to trend inflammatory markers. Continue anticoagulation with Lovenox. Prone position as possible. Continue ceftriaxone and azithromycin per ID recommendations. Prognosis is guarded. 12/26/2020 BG not controlled with glipizide. Start Lantus at bedtime for BG control. Elevated BG likely secondary to IV steroid. Patient currently requiring BiPAP with IPAP 18 and EPAP of 10 with FiO2 100%. Continue IV steroids of Solu-Medrol 60 mg every 8 hour and remdesivir. Continue to trend in flammatory markers. Continue anticoagulation with Lovenox. Prone position as possible. Continue ceftriaxone and azithromycin per ID recommendations. Prognosis is guarded. 12/27/2020. Blood glucose is improved but not optimal. Therefore, increase Lantus to 14 units at bedtime. Elevated BG likely secondary to IV steroid. Patient currently requiring BiPAP with IPAP 18 and EPAP of 10 with FiO2 100%. Continue IV steroids of Solu-Medrol 60 mg every 8 hour and remdesivir. Continue to trend inflammatory markers. Continue anticoagulation with Lovenox. Prone position as possible. Continue ceftriaxone and azithromycin per ID recommendations. Prognosis is guarded. 12/28/2020; patient's blood sugars are uncontrolled, secondary to noncompliance, partly due to high-dose steroids Patient remains hypoxic on continuous BiPAP Switch to 70/30 Novolin 20 units twice a day adjust as needed Patient's A1c 10.3, diabetic education nutrition education 12/29/2020; patient continues to be hypoxemic requiring continuous BiPAP Worsening D-dimers, CTA negative for PE, venous Doppler negative DVT 12/30/2020; patient continues to require continuous BiPAP Wean as tolerated, patient is critically ill with poor prognosis Vice President Financial recommendations noted and appreciated 12/31/2020; patient is on BiPAP Wean as tolerated, continue nebulizers IV steroids And other supportive care Pulmonary and ID recommendations noted and appreciated 01/01/2021; patient on continuous BiPAP 100% FiO2 Did not tolerate high flow nasal cannula 40 L 01/02/2021; patient briefly tolerated HFNC O2 Try to give Ensure intermittently if possible If unsuccessful will consider TPN 01/03/2021; patient is on high flow oxygen and BiPAP as needed Patient is tolerating nutrition supplements and diet in between Acute kidney injury with creatinine 1.3, hypernatremia Secondary to dehydration, encourage plenty free water History Interval history: I have seen and examined the patient at the bedside this morning Patient's chart and medications reviewed Isolation precautions and PPE protocols strictly followed per Covid guidelines Patient is on high flow nasal cannula oxygen with intermittent BiPAP Feels slightly better able to tolerate nutrition supplements Nepro Vital signs noted Hospitalist Physical - Constitutional Vitals: Temp Pulse Resp BP Pulse Ox 98.0 F 78 17 108/65 99 01/03/21 03:38 01/03/21 06:00 01/03/21 06:38 01/03/21 06:00 01/03/21 06:00 General appearance: Present: mild distress, well-nourished, obese (Morbidly obese), other (On high flow nasal cannula oxygen) - EENT Eyes: Present: PERRL, EOM intact - Neck Neck: Present: supple, normal ROM - Respiratory Respiratory effort: normal Respiratory: bilateral: diminished, rhonchi, negative: rales, wheezing - Cardiovascular Rhythm: regular Heart Sounds: Present: S1 & S2 - Extremities Extremities: no ischemia, abnormal (Obese) - Abdominal General gastrointestinal: soft, non-tender, non-distended, normal bowel sounds - Integumentary Integumentary: Present: clear, warm - Psychiatric Psychiatric: appropriate mood/affect, cooperative - Neurologic Neurologic: moves all extremities HEART Score - HEART Score Troponin: Troponin T < 0.010 ng/mL (0.00-0.029) 12/20/20 19:27 Results - Labs CBC & Chem 7: 12/27/20 04:25 01/03/21 06:48 Labs: Laboratory Last Values WBC 7.5 K/mm3 (4.5-11.0) 12/27/20 04:25 RBC 4.05 M/mm3 (3.65-5.03) 12/27/20 04:25 Hgb 13.1 gm/dl (10.1-14.3) 12/27/20 04:25 Hct 38.8 % (30.3-42.9) D 12/27/20 04:25 MCV 96 fl (79-97) 12/27/20 04:25 MCH 32 pg (28-32) 12/27/20 04:25 MCHC 34 % (30-34) 12/27/20 04:25 RDW 13.7 % (13.2-15.2) 12/27/20 04:25 Plt Count 230 K/mm3 (140-440) 12/27/20 04:25 Lymph % (Auto) 6.4 % (13.4-35.0) L 12/27/20 04:25 [place] % (Auto) 7.5 % (0.0-7.3) H 12/27/20 04:25 Eos % (Auto) 0.0 % (0.0-4.3) 12/27/20 04:25 Baso % (Auto) 0.2 % (0.0-1.8) 12/27/20 04:25 Lymph # (Auto) 0.5 K/mm3 (1.2-5.4) L 12/27/20 04:25 [place] # (Auto) 0.6 K/mm3 (0.0-0.8) 12/27/20 04:25 Eos # (Auto) 0.0 K/mm3 (0.0-0.4) 12/27/20 04:25 Baso # (Auto) 0.0 K/mm3 (0.0-0.1) 12/27/20 04:25 Add Manual Diff Complete 12/23/20 14:09 Total Counted 100 12/23/20 14:09 Seg Neutrophils % 85.9 % (40.0-70.0) H 12/27/20 04:25 Seg Neuts % (Manual) 87.0 % (40.0-70.0) H 12/23/20 14:09 Band Neutrophils % 4.0 % 12/23/20 14:09 Lymphocytes % (Manual) 3.0 % (13.4-35.0) L 12/23/20 14:09 Reactive Lymphs % (Man) 1.0 % 12/23/20 14:09 Monocytes % (Manual) 5.0 % (0.0-7.3) 12/23/20 14:09 Nucleated RBC % 1.0 % (0.0-0.9) H 12/23/20 14:09 Seg Neutrophils # 6.4 K/mm3 (1.8-7.7) 12/27/20 04:25 Seg Neutrophils # Man 1.6 K/mm3 (1.8-7.7) L 12/23/20 14:09 Band Neutrophils # 0.1 K/mm3 12/23/20 14:09 Lymphocytes # (Manual) 0.1 K/mm3 (1.2-5.4) L 12/23/20 14:09 Abs React Lymphs (Man) 0.0 K/mm3 12/23/20 14:09 Monocytes # (Manual) 0.1 K/mm3 (0.0-0.8) 12/23/20 14:09 Eosinophils # (Manual) 0.0 K/mm3 (0.0-0.4) 12/23/20 14:09 Basophils # (Manual) 0.0 K/mm3 (0.0-0.1) 12/23/20 14:09 Metamyelocytes # 0.0 K/mm3 12/23/20 14:09 Myelocytes # 0.0 K/mm3 12/23/20 14:09 Promyelocytes # 0.0 K/mm3 12/23/20 14:09 Blast Cells # 0.0 K/mm3 12/23/20 14:09 WBC Morphology Not Reportable 12/23/20 14:09 Hypersegmented Neuts Not Reportable 12/23/20 14:09 Hyposegmented Neuts Not Reportable 12/23/20 14:09 Hypogranular Neuts Not Reportable 12/23/20 14:09 Smudge Cells Not Reportable 12/23/20 14:09 Toxic Granulation Not Reportable 12/23/20 14:09 Toxic Vacuolation Not Reportable 12/23/20 14:09 Dohle Bodies Not Reportable 12/23/20 14:09 Pelger-Huet Anomaly Not Reportable 12/23/20 14:09 Jair Rods Not Reportable 12/23/20 14:09 Platelet Estimate Consistent w auto 12/23/20 14:09 Clumped Platelets Not Reportable 12/23/20 14:09 Plt Clumps, EDTA Not Reportable 12/23/20 14:09 Large Platelets Not Reportable 12/23/20 14:09 Giant Platelets Not Reportable 12/23/20 14:09 Platelet Satelliting Not Reportable 12/23/20 14:09 Plt Morphology Comment Not Reportable 12/23/20 14:09 RBC Morphology Normal 12/23/20 14:09 Dimorphic RBCs Not Reportable 12/23/20 14:09 Polychromasia Not Reportable 12/23/20 14:09 Hypochromasia Not Reportable 12/23/20 14:09 Poikilocytosis Not Reportable 12/23/20 14:09 Anisocytosis Not Reportable 12/23/20 14:09 Microcytosis Not Reportable 12/23/20 14:09 Macrocytosis Not Reportable 12/23/20 14:09 Spherocytes Not Reportable 12/23/20 14:09 Pappenheimer Bodies Not Reportable 12/23/20 14:09 Sickle Cells Not Reportable 12/23/20 14:09 Target Cells Not Reportable 12/23/20 14:09 Tear Drop Cells Not Reportable 12/23/20 14:09 Ovalocytes Not Reportable 12/23/20 14:09 Helmet Cells Not Reportable 12/23/20 14:09 [place] Bodies Not Reportable 12/23/20 14:09 Orr Rings Not Reportable 12/23/20 14:09 [place] Cells Not Reportable 12/23/20 14:09 Bite Cells Not Reportable 12/23/20 14:09 Crenated Cell Not Reportable 12/23/20 14:09 Elliptocytes Not Reportable 12/23/20 14:09 Acanthocytes (Spur) Not Reportable 12/23/20 14:09 Rouleaux Not Reportable 12/23/20 14:09 Hemoglobin C Crystals Not Reportable 12/23/20 14:09 Schistocytes Not Reportable 12/23/20 14:09 Malaria parasites Not Reportable 12/23/20 14:09 Giorgi Bodies Not Reportable 12/23/20 14:09 Hem Pathologist Commnt No 12/23/20 14:09 PT 13.1 Sec. (12.2-14.9) 12/21/20 05:50 INR 1.01 (0.87-1.13) 12/21/20 05:50 D-Dimer 4626.15 ng/mlDDU (0-234) H 12/28/20 15:43 ABG pH 7.454 (7.320-7.450) H 12/30/20 18:03 POC ABG pCO2 49.7 mmHg (32.0-48.0) H 12/30/20 18:03 POC ABG pO2 59.0 mmHg (83-108) L 12/30/20 18:03 POC ABG HCO3 34.1 12/30/20 18:03 ABG O2 Saturation 89.9 (0-100) 12/30/20 18:03 POC ABG Base Excess 8.7 12/30/20 18:03 ABG Hemoglobin 13.9 (12.0-17.5) 12/30/20 18:03 ABG Oxyhemoglobin 88.6 (94-98) L 12/30/20 18:03 ABG Methemoglobin 0.3 (0.0-1.5) 12/30/20 18:03 ABG Sodium 146.4 mmol/L (136.0-145.0) H 12/30/20 18:03 ABG Potassium 3.7 mmol/L (3.40-4.50) 12/30/20 18:03 ABG Chloride 105.0 mmol/L (98-107) 12/30/20 18:03 ABG Glucose 252 mg/dL (65-95) H 12/30/20 18:03 Carboxyhemoglobin 1.1 (0.5-1.5) 12/30/20 18:03 FiO2 % 85 12/30/20 18:03 Sodium 152 mmol/L (137-145) H 01/03/21 06:48 Potassium 4.5 mmol/L (3.6-5.0) 01/03/21 06:48 Chloride 108.8 mmol/L (98-107) H 01/03/21 06:48 Carbon Dioxide 32 mmol/L (22-30) H 01/03/21 06:48 Anion Gap 16 mmol/L 01/03/21 06:48 BUN 64 mg/dL (7-17) H 01/03/21 06:48 Creatinine 1.3 mg/dL (0.6-1.2) H 01/03/21 06:48 Estimated GFR 51 ml/min 01/03/21 06:48 BUN/Creatinine Ratio 49 % 01/03/21 06:48 Glucose 180 mg/dL (65-100) H 01/03/21 06:48 POC Glucose 263 mg/dL (70-105) H 01/02/21 21:20 Hemoglobin A1c 10.3 % (4-6) H 12/21/20 05:50 Lactic Acid 1.40 mmol/L (0.7-2.0) 12/21/20 05:50 Calcium 8.7 mg/dL (8.4-10.2) 01/03/21 06:48 Magnesium 1.90 mg/dL (1.7-2.3) 12/26/20 04:29 Ferritin 1030.0 ng/mL (10.0-200.0) H 12/28/20 15:43 Total Bilirubin 0.30 mg/dL (0.1-1.2) 12/27/20 04:25 AST 31 units/L (5-40) 12/27/20 04:25 ALT 28 units/L (7-56) 12/27/20 04:25 Alkaline Phosphatase 242 units/L (35-129) H 12/27/20 04:25 Lactate Dehydrogenase 838 units/L (91-180) H 12/28/20 15:43 Troponin T < 0.010 ng/mL (0.00-0.029) 12/20/20 19:27 C-Reactive Protein 1.10 mg/dL (0.00-1.30) 12/28/20 15:43 Total Protein 7.3 g/dL (6.3-8.2) 12/27/20 04:25 Albumin 2.7 g/dL (3.9-5) L 12/27/20 04:25 Albumin/Globulin Ratio 0.6 % 12/27/20 04:25 Procalcitonin 0.07 ng/mL (<0.15) 12/26/20 11:08 Arterial Blood Glucose 252 mg/dL (65-95) H 12/30/20 18:03 Arterial Blood Ionized Calcium 4.5 mg/dL (4.6-5.3) L 12/30/20 18:03 Urine Color Yellow (Yellow) 12/22/20 03:00 Urine Turbidity Clear (Clear) 12/22/20 03:00 Urine pH 5.0 (5.0-7.0) 12/22/20 03:00 Ur Specific [place] 1.019 (1.003-1.030) 12/22/20 03:00 Urine Protein 100 mg/dl mg/dL (Negative) 12/22/20 03:00 Urine Glucose (UA) 50 mg/dL (Negative) 12/22/20 03:00 Urine Ketones Neg mg/dL (Negative) 12/22/20 03:00 Urine Blood Sm (Negative) 12/22/20 03:00 Urine Nitrite Neg (Negative) 12/22/20 03:00 Urine Bilirubin Neg (Negative) 12/22/20 03:00 Urine Urobilinogen 2.0 mg/dL (<2.0) 12/22/20 03:00 Ur Leukocyte Esterase Neg (Negative) 12/22/20 03:00 Urine WBC (Auto) 1.0 /HPF (0.0-6.0) 12/22/20 03:00 Urine RBC (Auto) 1.0 /HPF (0.0-6.0) 12/22/20 03:00 U Epithel Cells (Auto) 3.0 /HPF (0-13.0) 12/22/20 03:00 Urine Bacteria (Auto) 1+ /HPF (Negative) 12/22/20 03:00 Urine Mucus Few /HPF 12/22/20 03:00 Urine Eosinophils None seen (None Seen) 12/22/20 03:00 Urine Creatinine 117.9 mg/dL (0.1-20.0) H 12/22/20 03:00 Urine Sodium 67 mmol/L 12/22/20 03:00 Coronavirus (PCR) Positive (Negative) A 12/21/20 10:28 Hepatitis A IgM Ab Non-reactive (NonReactive) 12/22/20 06:00 Hep Bs Antigen Non-reactive (Negative) 12/22/20 06:00 Hep B Core IgM Ab Non-reactive (NonReactive) 12/22/20 06:00 Hepatitis C Antibody Non-reactive (NonReactive) 12/22/20 06:00 Curtis/IV: Voiding Method Indwelling Catheter Active Medications - Current Medications Current Medications: Generic Name Dose Route Start Last Admin Trade Name Freq PRN Reason Stop Dose Admin Acetaminophen 650 mg 12/20/20 23:15 12/24/20 09:40 Acetaminophen 325 Mg Tab PO 650 mg Q4H PRN Administration Pain MILD(1-3)/Fever >100.5/VARGAS Albuterol 2.5 mg 12/21/20 12:00 Albuterol 2.5 Mg/3 Ml Nebu IH Q4HRT PRN Shortness Of Breath Amlodipine Besylate 10 mg 12/26/20 14:00 01/02/21 11:00 Amlodipine 10 Mg Tab PO Not Given QDAY TAMEKA Dextrose 50 ml 12/20/20 23:15 Dextrose 50% In Water (25gm) 50 Ml Syringe IV Q30MIN PRN Hypoglycemia Protocol Enoxaparin Sodium 40 mg 12/21/20 22:00 01/02/21 21:10 Enoxaparin 40 Mg/0.4 Ml Inj SUB-Q 40 mg QDAY@2200 TAMEKA Administration Protocol Furosemide 40 mg 12/26/20 14:00 01/02/21 11:00 Furosemide 40 Mg/4 Ml Inj IV 40 mg QDAY TAMEKA Administration Gabapentin 800 mg 12/21/20 22:00 01/02/21 21:10 Gabapentin 400 Mg Cap PO 800 mg BID TAMEKA Administration Glipizide 10 mg 12/21/20 10:00 01/02/21 17:16 Glipizide 10 Mg Tab PO 10 mg BIDDIAB TAMEKA Administration Guaifenesin 200 mg 12/21/20 16:00 01/02/21 21:10 Guaifenesin 100 Mg/5 Ml Oral Liqd PO 200 mg Q4H PRN Administration Cough Dexmedetomidine HCl 400 mcg/ 104 mls @ 6.952 mls/hr 12/28/20 15:00 01/02/21 18:53 Sodium Chloride IV 0.2 mcg/kg/hr TITRATE TAMEKA 6.952 mls/hr Administration Protocol 0.2 MCG/KG/HR Insulin Human Isoph/Insulin Regular 25 unit 12/28/20 09:00 01/02/21 17:16 Insulin Nph/Regular 70/30 Inj SUB-Q 25 unit BIDDIAB TAMEKA Administration Insulin Human Lispro 0 unit 12/21/20 07:30 01/02/21 22:22 Insulin Lispro 100 Unit/Ml SUB-Q 4 unit ACHS TAMEKA Administration Protocol Lorazepam 0.5 mg 12/23/20 20:12 01/02/21 21:12 Lorazepam 2 Mg/Ml Vial IV 0.5 mg Q6H PRN Administration Anxiety Magnesium Hydroxide 30 ml 12/20/20 23:15 Magnesium Hydroxide (Mom) Oral Liqd Udc PO Q4H PRN Constipation Methylprednisolone Sodium Succinate 60 mg 12/29/20 18:00 01/03/21 06:38 Methylprednisolone Sod Succinate 125 Mg/2 Ml Inj IV 60 mg Q6HR TAMEKA Administration Morphine Sulfate 2 mg 12/20/20 23:15 01/03/21 06:38 Morphine 2 Mg/1 Ml Inj IV 2 mg Q4H PRN Administration Pain, Moderate (4-6) Ondansetron HCl 4 mg 12/20/20 23:15 Ondansetron 4 Mg/2 Ml Inj IV Q8H PRN Nausea And Vomiting Oxycodone/Acetaminophen 1 tab 12/21/20 16:00 12/27/20 22:49 Oxycodone /Acetaminophen 5-325mg Tab PO 1 tab Q6H PRN Administration Pain, Moderate (4-6) Sodium Chloride 10 ml 12/21/20 10:00 01/02/21 21:12 Sodium Chloride 0.9% 10 Ml Flush Syringe IV 10 ml BID TAMEKA Administration Sodium Chloride 10 ml 12/20/20 23:15 12/21/20 18:48 Sodium Chloride 0.9% 10 Ml Flush Syringe IV 10 ml PRN PRN Administration LINE FLUSH Sodium Chloride 1 applic 12/22/20 12:00 01/02/21 22:22 [place] Saline Nasal Gel 14.1 Gm NS 1 applic BID TAMEKA Administration Nutrition/Malnutrition Assess - Dietary Evaluation Nutrition/Malnutrition Findings: Nutrition Notes Start: 12/21/20 09:35 Freq: Status: Active Protocol: Document 12/31/20 11:20 MISHA (Rec: 12/31/20 11:25 MISHA [id number]) Co-Sign 12/31/20 11:20 CW Nutrition Notes Initial or Follow up Reassessment Current Diagnosis Diabetes,Hypertension, Respiratory Failure Other Pertinent Diagnosis pneu, COVID 19(+), SOB, Diabetic Neuropathy Current Diet Cardiac/Consistent CHO Labs/Tests No new labs Pertinent Medications Insulin Lasix Glipizide Solumedrol Height 5 ft 7 in Weight 131 kg [place] Body Weight (kg) 61.36 BMI 45.2 Weight change and time frame Wt change noted, pt on lasix Weight Status Morbidly Obese Subjective/Other Information F/U for intakes and ONS. Per RN, pt consumed 25% breakfast and 100% ONS. Pt consuming 50% meals on average and 100% ONS . Per chart, pt to be weaned off Bipap as tolerated. Percent of energy/protein needs met: 100%/100% (PO and ONS) Burn Absent Trauma Absent GI Symptoms None Current % PO Fair (50-74%) Minimum of two criteria No physical signs of malnutrition #1 Nutrition Diagnosis Inadequate oral intake Diagnosis Progress(for reassessment Continues documentation) Is patient on ventilator? No Is Patient Ambulatory and/or Out of Bed Yes REE-([facility]-ambulatory/OOB) [ 2518.919 [id number]] Kcal/Kg value to use for calculation 15 Approximate Energy Requirements Using 1965 kcal/Kg Calculation Used for Recommendations Kcal/kg Additional Notes PRO needs: 77-96g (0.8-1g/kg AdBW 96 kg) Fluid needs: 1 mL/kcal or per MD Nutrition Intervention Change Diet Order: Continue current diet as ordered Add Supplement/Snack (indicate name/kcal Nepro BID /protein ) Provides kCal: 850 Provides Protein (gm) 38 Goal #1 Meet at least 75% of energy and protein needs via diet and ONS Anticipated Discharge Needs: Cardiac/Consistent CHO Follow-Up By: 01/04/21 Additional Comments F/U for stable intakes, Bipap wean
[2021-01-03] MEDS: glipiZIDE 10 MG TAB PO SCH ×2 (09:02→18:20)
[2021-01-03] MEDS: INSULIN NPH/REGULAR 70/30 INJ SUB-Q SCH ×2 (09:03→18:20)
[2021-01-03] MEDS: INSULIN LISPRO 100 UNIT/ML SUB-Q SCH ×4 (09:04→22:21)
[2021-01-03] MEDS: amLODIPine 10 MG TAB PO SCH (09:24)
[2021-01-03] MEDS: GABAPENTIN 400 MG CAP PO SCH ×2 (09:25→22:20)
[2021-01-03] MEDS: AYR SALINE NASAL GEL 14.1 GM NS SCH ×2 (09:25→22:19)
[2021-01-03] MEDS: FUROSEMIDE 40 MG/4 ML INJ IV SCH (09:25)
--- NOTE | 2021-01-03 11:54 | Progress Note ---
Assessment and Plan 55 y/o female with acute respiratory failure secondary to cOVID 19 with prior history of ILD on a CT in [facility] 01/03/21: continue between HFNC and bipap. Will hold on lasix today as patient is getting more hypernatremia and worsening renal function. All secondary to lack of eating and drinking. Ok with starting with D5 at like 42/hr. Guarded prognosis. 01/02/21: Continue to avoid intubation at all costs. Continue high dose steroids. Given concern for ILD, may even need to consider pulse dose steroids but will discuss on rounds tomorrow. Lasix was given last night and yesterday morning. negative 1700 on yesterday. Please check labs in the am as I would like to give lasix again tonight. 01/01/21: Unfortunately, given her high risk for intubation, patient will not be able to eat. Nutrition has been an issue and we will discuss this on rounds. May need PPN. Continue steroids at current dosing. Will give an additional dose of lasix tonight. 12/31/20: will continue steroids today as same dose and frequency. No changes to lasix therapy. Need to keep patient as calm as possible to allow bipap to work to avoid intubation at all costs. Prognosis still remains guarded. 12/30/20: Continue steroids at 60q6. Continue daily lasix. may need to consider BID dosing to help with more volume removal if renal function will permit. Overall prognosis is very very guarded to poor, especially if the patient ends up on the mechanical ventilator. 12/29/20: Will increase steroids to q6 hour dosing to see if this helps. Prognosis is very very guarded. 12/28/20: Continue steroids and lasix, may need to ask renal about BID dosing for a few days to see if this will help. Prone as tolerated during the day and sleep prone at night. 1. Agree with change in steroids to solumedrol 60q8, will continue for now 2. Agree with daily lasix but goal should be daily net negative state. 3. Prone as tolerated during the day and sleep prone at night 4. Guarded prognosis Subjective Date of service: 01/03/21 Principal diagnosis: COVID-19 Interval history: Still back and forth between bipap and HFNC. No acute issues. Objective Vital Signs - 12hr 01/03/21 01/03/2101/03/21 00:00 00:05 00:06 Temperature Pulse Rate 88 88 87 Pulse Rate [ From Monitor] Respiratory 17 20 Rate Blood Pressure 118/74 118/74 O2 Sat by Pulse 95 98 Oximetry 01/03/21 01/03/21 01/03/21 00:30 01:00 01:30 Temperature Pulse Rate 87 86 84 Pulse Rate [ From Monitor] Respiratory 17 16 16 Rate Blood Pressure 115/71 112/73 110/73 O2 Sat by Pulse 96 98 99 Oximetry 01/03/21 01/03/21 01/03/21 02:00 02:30 03:00 Temperature Pulse Rate 85 84 82 Pulse Rate [ From Monitor] Respiratory 16 15 15 Rate Blood Pressure 110/71 120/73 107/69 O2 Sat by Pulse 98 95 Oximetry 01/03/21 01/03/21 01/03/21 03:30 03:38 03:55 Temperature 98.0 F Pulse Rate 88 86 Pulse Rate [ From Monitor] Respiratory 16 Rate Blood Pressure 120/73 O2 Sat by Pulse 96 Oximetry 01/03/21 01/03/21 01/03/21 04:00 04:30 04:48 Temperature Pulse Rate 88 80 80 Pulse Rate [ 88 From Monitor] Respiratory 15 21 24 Rate Blood Pressure 132/90 126/76 126/76 O2 Sat by Pulse 95 95 99 Oximetry 01/03/21 01/03/21 01/03/21 05:00 05:30 06:00 Temperature Pulse Rate 78 82 78 Pulse Rate [ From Monitor] Respiratory 14 22 18 Rate Blood Pressure 118/71 127/82 108/65 O2 Sat by Pulse 98 97 99 Oximetry 01/03/21 01/03/21 01/03/21 06:30 06:38 07:00 Temperature Pulse Rate 78 80 Pulse Rate [ From Monitor] Respiratory 16 17 19 Rate Blood Pressure 108/65 110/71 O2 Sat by Pulse 97 Oximetry 01/03/21 01/03/21 01/03/21 07:30 08:00 08:30 Temperature 97.9 F Pulse Rate 78 79 78 Pulse Rate [ From Monitor] Respiratory 15 19 18 Rate Blood Pressure 143/97 134/68 156/98 O2 Sat by Pulse 98 97 96 Oximetry 01/03/21 01/03/21 01/03/21 09:15 09:19 09:24 Temperature Pulse Rate 96 H 96 H Pulse Rate [ From Monitor] Respiratory 24 Rate Blood Pressure 155/98 O2 Sat by Pulse 92 89 Oximetry 01/03/21 01/03/21 09:30 10:01 Temperature Pulse Rate 97 H 124 H Pulse Rate [ From Monitor] Respiratory 29 H 31 H Rate Blood Pressure 146/105 221/142 O2 Sat by Pulse 91 Oximetry Constitutional: no acute distress, alert (obese), other (on BIPAP) Eyes: non-icteric ENT: oropharynx moist Neck: supple Effort: normal Ascultation: Bilateral: clear, diminished breath sounds (anteriorly) Cardiovascular: regular rate and rhythm (no mrg) Gastrointestinal: normoactive bowel sounds, soft, non-tender, non-distended Integumentary: normal Extremities: no cyanosis, no edema, pink and warm Neurologic: normal mental status, non-focal exam Psychiatric: mood appropriate, affect normal CBC and BMP: 12/27/20 04:25 01/03/21 06:48 ABG, PT/INR, D-dimer: ABG ABG pH 7.454 (7.320-7.450) H 12/30/20 18:03 POC ABG pCO2 49.7 mmHg (32.0-48.0) H 12/30/20 18:03 POC ABG pO2 59.0 mmHg (83-108) L 12/30/20 18:03 POC ABG HCO3 34.1 12/30/20 18:03 ABG O2 Saturation 89.9 (0-100) 12/30/20 18:03 PT/INR, D-dimer PT 13.1 Sec. (12.2-14.9) 12/21/20 05:50 INR 1.01 (0.87-1.13) 12/21/20 05:50 D-Dimer 4626.15 ng/mlDDU (0-234) H 12/28/20 15:43 Abnormal lab findings: Abnormal Labs 12/20/20 12/20/20 12/20/20 19:27 19:27 19:27 WBC 2.9 L RBC MCHC Plt Count 116 L Lymph % (Auto) 41.2 H Blair % (Auto) 13.2 H Lymph # (Auto) Seg Neutrophils % Seg Neuts % (Manual) Lymphocytes % (Manual) Nucleated RBC % Seg Neutrophils # 1.3 L Seg Neutrophils # Man Lymphocytes # (Manual) D-Dimer 260.58 H ABG pH POC ABG pCO2 POC ABG pO2 ABG Oxyhemoglobin ABG Sodium ABG Glucose Sodium 135 L Potassium Chloride 96.1 L Carbon Dioxide BUN 23 H Creatinine 1.4 H Glucose 295 H POC Glucose Hemoglobin A1c Calcium 8.3 L Ferritin AST 125 H ALT 96 H Alkaline Phosphatase 323 H Lactate Dehydrogenase C-Reactive Protein Total Protein 8.7 H Albumin 3.7 L Arterial Blood Glucose Arterial Blood Ionized Calcium Urine Creatinine Coronavirus (PCR) 12/20/20 12/20/20 12/21/20 19:43 19:43 05:50 WBC RBC MCHC Plt Count Lymph % (Auto) [place] % (Auto) Lymph # (Auto) Seg Neutrophils % Seg Neuts % (Manual) Lymphocytes % (Manual) Nucleated RBC % Seg Neutrophils # Seg Neutrophils # Man Lymphocytes # (Manual) D-Dimer ABG pH POC ABG pCO2 POC ABG pO2 ABG Oxyhemoglobin ABG Sodium ABG Glucose Sodium Potassium Chloride Carbon Dioxide BUN Creatinine Glucose 297 H POC Glucose Hemoglobin A1c 10.3 H Calcium Ferritin 1420.0 H AST ALT Alkaline Phosphatase Lactate Dehydrogenase 491 H C-Reactive Protein 5.50 H Total Protein Albumin Arterial Blood Glucose Arterial Blood Ionized Calcium Urine Creatinine Coronavirus (PCR) 12/21/20 12/21/20 12/21/20 05:50 05:50 08:04 WBC 1.6 L* RBC 3.40 L MCHC Plt Count 104 L Lymph % (Auto) [place] % (Auto) Lymph # (Auto) Seg Neutrophils % Seg Neuts % (Manual) 82.0 H Lymphocytes % (Manual) Nucleated RBC % Seg Neutrophils # Seg Neutrophils # Man 1.3 L Lymphocytes # (Manual) 0.3 L D-Dimer ABG pH POC ABG pCO2 POC ABG pO2 ABG Oxyhemoglobin ABG Sodium ABG Glucose Sodium 132 L Potassium 5.7 H D Chloride 95.7 L Carbon Dioxide BUN 33 H Creatinine 1.7 H Glucose 500 H POC Glucose 483 H Hemoglobin A1c Calcium 7.7 L Ferritin AST ALT Alkaline Phosphatase Lactate Dehydrogenase C-Reactive Protein Total Protein Albumin Arterial Blood Glucose Arterial Blood Ionized Calcium Urine Creatinine Coronavirus (PCR) 12/21/20 12/21/20 12/21/20 10:28 12:05 16:54 WBC RBC MCHC Plt Count Lymph % (Auto) [place] % (Auto) Lymph # (Auto) Seg Neutrophils % Seg Neuts % (Manual) Lymphocytes % (Manual) Nucleated RBC % Seg Neutrophils # Seg Neutrophils # Man Lymphocytes # (Manual) D-Dimer ABG pH POC ABG pCO2 POC ABG pO2 ABG Oxyhemoglobin ABG Sodium ABG Glucose Sodium Potassium Chloride Carbon Dioxide BUN Creatinine Glucose POC Glucose 482 H 374 H Hemoglobin A1c Calcium Ferritin AST ALT Alkaline Phosphatase Lactate Dehydrogenase C-Reactive Protein Total Protein Albumin Arterial Blood Glucose Arterial Blood Ionized Calcium Urine Creatinine Coronavirus (PCR) Positive A 12/21/20 12/21/20 12/22/20 18:24 22:12 03:00 WBC RBC MCHC Plt Count Lymph % (Auto) [place] % (Auto) Lymph # (Auto) Seg Neutrophils % Seg Neuts % (Manual) Lymphocytes % (Manual) Nucleated RBC % Seg Neutrophils # Seg Neutrophils # Man Lymphocytes # (Manual) D-Dimer ABG pH POC ABG pCO2 POC ABG pO2 ABG Oxyhemoglobin ABG Sodium ABG Glucose Sodium 131 L Potassium Chloride 95.2 L Carbon Dioxide BUN 37 H Creatinine 1.4 H Glucose 417 H POC Glucose 358 H Hemoglobin A1c Calcium 7.5 L Ferritin AST 82 H ALT 69 H Alkaline Phosphatase 262 H Lactate Dehydrogenase C-Reactive Protein Total Protein Albumin 3.0 L Arterial Blood Glucose Arterial Blood Ionized Calcium Urine Creatinine 117.9 H Coronavirus (PCR) 12/22/20 12/22/20 12/22/20 05:29 08:19 11:18 WBC RBC MCHC Plt Count Lymph % (Auto) [place] % (Auto) Lymph # (Auto) Seg Neutrophils % Seg Neuts % (Manual) Lymphocytes % (Manual) Nucleated RBC % Seg Neutrophils # Seg Neutrophils # Man Lymphocytes # (Manual) D-Dimer ABG pH POC ABG pCO2 POC ABG pO2 ABG Oxyhemoglobin ABG Sodium ABG Glucose Sodium Potassium Chloride Carbon Dioxide BUN 34 H Creatinine 1.3 H Glucose 169 H POC Glucose 136 H 132 H Hemoglobin A1c Calcium 7.5 L Ferritin AST 74 H ALT 60 H Alkaline Phosphatase 249 H Lactate Dehydrogenase C-Reactive Protein Total Protein Albumin 3.1 L Arterial Blood Glucose Arterial Blood Ionized Calcium Urine Creatinine Coronavirus (PCR) 12/22/20 12/22/20 12/22/20 14:18 14:18 16:36 WBC RBC MCHC Plt Count Lymph % (Auto) [place] % (Auto) Lymph # (Auto) Seg Neutrophils % Seg Neuts % (Manual) Lymphocytes % (Manual) Nucleated RBC % Seg Neutrophils # Seg Neutrophils # Man Lymphocytes # (Manual) D-Dimer ABG pH POC ABG pCO2 POC ABG pO2 ABG Oxyhemoglobin ABG Sodium ABG Glucose Sodium Potassium Chloride Carbon Dioxide BUN Creatinine Glucose POC Glucose 440 H Hemoglobin A1c Calcium Ferritin 1295.0 H AST ALT Alkaline Phosphatase Lactate Dehydrogenase 620 H C-Reactive Protein 2.70 H Total Protein Albumin Arterial Blood Glucose Arterial Blood Ionized Calcium Urine Creatinine Coronavirus (PCR) 12/22/20 12/23/20 12/23/20 21:07 08:09 11:30 WBC RBC MCHC Plt Count Lymph % (Auto) [place] % (Auto) Lymph # (Auto) Seg Neutrophils % Seg Neuts % (Manual) Lymphocytes % (Manual) Nucleated RBC % Seg Neutrophils # Seg Neutrophils # Man Lymphocytes # (Manual) D-Dimer ABG pH POC ABG pCO2 POC ABG pO2 ABG Oxyhemoglobin ABG Sodium ABG Glucose Sodium Potassium Chloride Carbon Dioxide BUN Creatinine Glucose POC Glucose 493 H 156 H 185 H Hemoglobin A1c Calcium Ferritin AST ALT Alkaline Phosphatase Lactate Dehydrogenase C-Reactive Protein Total Protein Albumin Arterial Blood Glucose Arterial Blood Ionized Calcium Urine Creatinine Coronavirus (PCR) 12/23/20 12/23/20 12/23/20 14:09 14:09 16:26 WBC 1.8 L* RBC 3.45 L MCHC Plt Count 114 L Lymph % (Auto) [place] % (Auto) Lymph # (Auto) Seg Neutrophils % Seg Neuts % (Manual) 87.0 H Lymphocytes % (Manual) 3.0 L Nucleated RBC % 1.0 H Seg Neutrophils # Seg Neutrophils # Man 1.6 L Lymphocytes # (Manual) 0.1 L D-Dimer ABG pH POC ABG pCO2 POC ABG pO2 ABG Oxyhemoglobin ABG Sodium ABG Glucose Sodium Potassium Chloride Carbon Dioxide BUN 19 H Creatinine Glucose 292 H POC Glucose 351 H Hemoglobin A1c Calcium 7.4 L Ferritin AST 71 H ALT Alkaline Phosphatase 264 H Lactate Dehydrogenase C-Reactive Protein Total Protein Albumin 3.0 L Arterial Blood Glucose Arterial Blood Ionized Calcium Urine Creatinine Coronavirus (PCR) 12/23/20 12/24/20 12/24/20 21:11 08:21 11:58 WBC RBC MCHC Plt Count Lymph % (Auto) [place] % (Auto) Lymph # (Auto) Seg Neutrophils % Seg Neuts % (Manual) Lymphocytes % (Manual) Nucleated RBC % Seg Neutrophils # Seg Neutrophils # Man Lymphocytes # (Manual) D-Dimer ABG pH POC ABG pCO2 POC ABG pO2 ABG Oxyhemoglobin ABG Sodium ABG Glucose Sodium Potassium Chloride Carbon Dioxide BUN Creatinine Glucose POC Glucose 288 H 286 H 277 H Hemoglobin A1c Calcium Ferritin AST ALT Alkaline Phosphatase Lactate Dehydrogenase C-Reactive Protein Total Protein Albumin Arterial Blood Glucose Arterial Blood Ionized Calcium Urine Creatinine Coronavirus (PCR) 12/24/20 12/24/20 12/24/20 12:29 12:29 16:05 WBC 2.5 L RBC 3.49 L MCHC 35 H Plt Count 132 L Lymph % (Auto) [place] % (Auto) 7.6 H Lymph # (Auto) 0.4 L Seg Neutrophils % 74.7 H Seg Neuts % (Manual) Lymphocytes % (Manual) Nucleated RBC % Seg Neutrophils # Seg Neutrophils # Man Lymphocytes # (Manual) D-Dimer ABG pH POC ABG pCO2 POC ABG pO2 ABG Oxyhemoglobin ABG Sodium ABG Glucose Sodium Potassium Chloride Carbon Dioxide BUN Creatinine Glucose 256 H POC Glucose 282 H Hemoglobin A1c Calcium 7.8 L Ferritin AST 50 H ALT Alkaline Phosphatase 262 H Lactate Dehydrogenase C-Reactive Protein Total Protein Albumin 2.8 L Arterial Blood Glucose Arterial Blood Ionized Calcium Urine Creatinine Coronavirus (PCR) 12/24/20 12/25/20 12/25/20 22:01 07:58 11:38 WBC RBC MCHC Plt Count Lymph % (Auto) [place] % (Auto) Lymph # (Auto) Seg Neutrophils % Seg Neuts % (Manual) Lymphocytes % (Manual) Nucleated RBC % Seg Neutrophils # Seg Neutrophils # Man Lymphocytes # (Manual) D-Dimer ABG pH POC ABG pCO2 POC ABG pO2 ABG Oxyhemoglobin ABG Sodium ABG Glucose Sodium Potassium Chloride Carbon Dioxide BUN Creatinine Glucose POC Glucose 366 H 278 H 325 H Hemoglobin A1c Calcium Ferritin AST ALT Alkaline Phosphatase Lactate Dehydrogenase C-Reactive Protein Total Protein Albumin Arterial Blood Glucose Arterial Blood Ionized Calcium Urine Creatinine Coronavirus (PCR) 12/25/20 12/25/20 12/26/20 15:47 21:31 04:29 WBC RBC MCHC Plt Count Lymph % (Auto) [place] % (Auto) Lymph # (Auto) Seg Neutrophils % Seg Neuts % (Manual) Lymphocytes % (Manual) Nucleated RBC % Seg Neutrophils # Seg Neutrophils # Man Lymphocytes # (Manual) D-Dimer ABG pH POC ABG pCO2 POC ABG pO2 ABG Oxyhemoglobin ABG Sodium ABG Glucose Sodium Potassium Chloride Carbon Dioxide BUN 22 H Creatinine Glucose 327 H POC Glucose 316 H 339 H Hemoglobin A1c Calcium 7.9 L Ferritin AST ALT Alkaline Phosphatase Lactate Dehydrogenase C-Reactive Protein Total Protein Albumin Arterial Blood Glucose Arterial Blood Ionized Calcium Urine Creatinine Coronavirus (PCR) 12/26/20 12/26/20 12/26/20 07:42 11:08 11:08 WBC RBC MCHC Plt Count Lymph % (Auto) [place] % (Auto) Lymph # (Auto) Seg Neutrophils % Seg Neuts % (Manual) Lymphocytes % (Manual) Nucleated RBC % Seg Neutrophils # Seg Neutrophils # Man Lymphocytes # (Manual) D-Dimer 1954.54 H ABG pH POC ABG pCO2 POC ABG pO2 ABG Oxyhemoglobin ABG Sodium ABG Glucose Sodium Potassium Chloride Carbon Dioxide BUN Creatinine Glucose POC Glucose 353 H Hemoglobin A1c Calcium Ferritin 932.1 H AST ALT Alkaline Phosphatase Lactate Dehydrogenase C-Reactive Protein Total Protein Albumin Arterial Blood Glucose Arterial Blood Ionized Calcium Urine Creatinine Coronavirus (PCR) 12/26/20 12/26/20 12/26/20 11:08 11:57 16:40 WBC RBC MCHC Plt Count Lymph % (Auto) [place] % (Auto) Lymph # (Auto) Seg Neutrophils % Seg Neuts % (Manual) Lymphocytes % (Manual) Nucleated RBC % Seg Neutrophils # Seg Neutrophils # Man Lymphocytes # (Manual) D-Dimer ABG pH POC ABG pCO2 POC ABG pO2 ABG Oxyhemoglobin ABG Sodium ABG Glucose Sodium Potassium Chloride Carbon Dioxide BUN Creatinine Glucose POC Glucose 318 H 352 H Hemoglobin A1c Calcium Ferritin AST ALT Alkaline Phosphatase Lactate Dehydrogenase 698 H C-Reactive Protein 3.70 H Total Protein Albumin Arterial Blood Glucose Arterial Blood Ionized Calcium Urine Creatinine Coronavirus (PCR) 12/26/20 12/27/20 12/27/20 21:29 04:25 04:25 WBC RBC MCHC Plt Count Lymph % (Auto) 6.4 L [place] % (Auto) 7.5 H Lymph # (Auto) 0.5 L Seg Neutrophils % 85.9 H Seg Neuts % (Manual) Lymphocytes % (Manual) Nucleated RBC % Seg Neutrophils # Seg Neutrophils # Man Lymphocytes # (Manual) D-Dimer ABG pH POC ABG pCO2 POC ABG pO2 ABG Oxyhemoglobin ABG Sodium ABG Glucose Sodium Potassium 5.4 H D Chloride Carbon Dioxide BUN 30 H Creatinine Glucose 273 H POC Glucose 376 H Hemoglobin A1c Calcium 8.1 L Ferritin AST ALT Alkaline Phosphatase 242 H Lactate Dehydrogenase C-Reactive Protein Total Protein Albumin 2.7 L Arterial Blood Glucose Arterial Blood Ionized Calcium Urine Creatinine Coronavirus (PCR) 12/27/20 12/27/20 12/27/20 08:05 11:39 17:28 WBC RBC MCHC Plt Count Lymph % (Auto) [place] % (Auto) Lymph # (Auto) Seg Neutrophils % Seg Neuts % (Manual) Lymphocytes % (Manual) Nucleated RBC % Seg Neutrophils # Seg Neutrophils # Man Lymphocytes # (Manual) D-Dimer ABG pH POC ABG pCO2 POC ABG pO2 ABG Oxyhemoglobin ABG Sodium ABG Glucose Sodium Potassium Chloride Carbon Dioxide BUN Creatinine Glucose POC Glucose 287 H 359 H 490 H Hemoglobin A1c Calcium Ferritin AST ALT Alkaline Phosphatase Lactate Dehydrogenase C-Reactive Protein Total Protein Albumin Arterial Blood Glucose Arterial Blood Ionized Calcium Urine Creatinine Coronavirus (PCR) 12/27/20 12/27/20 12/28/20 21:43 21:53 04:41 WBC RBC MCHC Plt Count Lymph % (Auto) [place] % (Auto) Lymph # (Auto) Seg Neutrophils % Seg Neuts % (Manual) Lymphocytes % (Manual) Nucleated RBC % Seg Neutrophils # Seg Neutrophils # Man Lymphocytes # (Manual) D-Dimer ABG pH POC ABG pCO2 POC ABG pO2 ABG Oxyhemoglobin ABG Sodium ABG Glucose Sodium Potassium Chloride Carbon Dioxide 31 H BUN 35 H Creatinine Glucose 328 H POC Glucose 503 H 438 H Hemoglobin A1c Calcium Ferritin AST ALT Alkaline Phosphatase Lactate Dehydrogenase C-Reactive Protein Total Protein Albumin Arterial Blood Glucose Arterial Blood Ionized Calcium Urine Creatinine Coronavirus (PCR) 12/28/20 12/28/20 12/28/20 07:58 11:40 15:43 WBC RBC MCHC Plt Count Lymph % (Auto) [place] % (Auto) Lymph # (Auto) Seg Neutrophils % Seg Neuts % (Manual) Lymphocytes % (Manual) Nucleated RBC % Seg Neutrophils # Seg Neutrophils # Man Lymphocytes # (Manual) D-Dimer 4626.15 H ABG pH POC ABG pCO2 POC ABG pO2 ABG Oxyhemoglobin ABG Sodium ABG Glucose Sodium Potassium Chloride Carbon Dioxide BUN Creatinine Glucose POC Glucose 321 H 455 H Hemoglobin A1c Calcium Ferritin AST ALT Alkaline Phosphatase Lactate Dehydrogenase C-Reactive Protein Total Protein Albumin Arterial Blood Glucose Arterial Blood Ionized Calcium Urine Creatinine Coronavirus (PCR) 12/28/20 12/28/20 12/28/20 15:43 15:43 17:10 WBC RBC MCHC Plt Count Lymph % (Auto) [place] % (Auto) Lymph # (Auto) Seg Neutrophils % Seg Neuts % (Manual) Lymphocytes % (Manual) Nucleated RBC % Seg Neutrophils # Seg Neutrophils # Man Lymphocytes # (Manual) D-Dimer ABG pH POC ABG pCO2 POC ABG pO2 ABG Oxyhemoglobin ABG Sodium ABG Glucose Sodium Potassium Chloride Carbon Dioxide BUN Creatinine Glucose POC Glucose 291 H Hemoglobin A1c Calcium Ferritin 1030.0 H AST ALT Alkaline Phosphatase Lactate Dehydrogenase 838 H C-Reactive Protein Total Protein Albumin Arterial Blood Glucose Arterial Blood Ionized Calcium Urine Creatinine Coronavirus (PCR) 12/28/20 12/29/20 12/29/20 21:42 05:12 08:25 WBC RBC MCHC Plt Count Lymph % (Auto) [place] % (Auto) Lymph # (Auto) Seg Neutrophils % Seg Neuts % (Manual) Lymphocytes % (Manual) Nucleated RBC % Seg Neutrophils # Seg Neutrophils # Man Lymphocytes # (Manual) D-Dimer ABG pH POC ABG pCO2 POC ABG pO2 ABG Oxyhemoglobin ABG Sodium ABG Glucose Sodium 146 H Potassium Chloride Carbon Dioxide 32 H BUN 34 H Creatinine Glucose 126 H POC Glucose 240 H 176 H Hemoglobin A1c Calcium Ferritin AST ALT Alkaline Phosphatase Lactate Dehydrogenase C-Reactive Protein Total Protein Albumin Arterial Blood Glucose Arterial Blood Ionized Calcium Urine Creatinine Coronavirus (PCR) 12/29/20 12/29/20 12/29/20 11:24 16:49 21:39 WBC RBC MCHC Plt Count Lymph % (Auto) [place] % (Auto) Lymph # (Auto) Seg Neutrophils % Seg Neuts % (Manual) Lymphocytes % (Manual) Nucleated RBC % Seg Neutrophils # Seg Neutrophils # Man Lymphocytes # (Manual) D-Dimer ABG pH POC ABG pCO2 POC ABG pO2 ABG Oxyhemoglobin ABG Sodium ABG Glucose Sodium Potassium Chloride Carbon Dioxide BUN Creatinine Glucose POC Glucose 209 H 226 H 169 H Hemoglobin A1c Calcium Ferritin AST ALT Alkaline Phosphatase Lactate Dehydrogenase C-Reactive Protein Total Protein Albumin Arterial Blood Glucose Arterial Blood Ionized Calcium Urine Creatinine Coronavirus (PCR) 12/30/20 12/30/20 12/30/20 07:34 12:17 16:29 WBC RBC MCHC Plt Count Lymph % (Auto) [place] % (Auto) Lymph # (Auto) Seg Neutrophils % Seg Neuts % (Manual) Lymphocytes % (Manual) Nucleated RBC % Seg Neutrophils # Seg Neutrophils # Man Lymphocytes # (Manual) D-Dimer ABG pH POC ABG pCO2 POC ABG pO2 ABG Oxyhemoglobin ABG Sodium ABG Glucose Sodium Potassium Chloride Carbon Dioxide BUN Creatinine Glucose POC Glucose 206 H 261 H 229 H Hemoglobin A1c Calcium Ferritin AST ALT Alkaline Phosphatase Lactate Dehydrogenase C-Reactive Protein Total Protein Albumin Arterial Blood Glucose Arterial Blood Ionized Calcium Urine Creatinine Coronavirus (PCR) 12/30/20 12/30/20 12/31/20 18:03 23:13 08:43 WBC RBC MCHC Plt Count Lymph % (Auto) [place] % (Auto) Lymph # (Auto) Seg Neutrophils % Seg Neuts % (Manual) Lymphocytes % (Manual) Nucleated RBC % Seg Neutrophils # Seg Neutrophils # Man Lymphocytes # (Manual) D-Dimer ABG pH 7.454 H POC ABG pCO2 49.7 H POC ABG pO2 59.0 L ABG Oxyhemoglobin 88.6 L ABG Sodium 146.4 H ABG Glucose 252 H Sodium Potassium Chloride Carbon Dioxide BUN Creatinine Glucose POC Glucose 188 H 191 H Hemoglobin A1c Calcium Ferritin AST ALT Alkaline Phosphatase Lactate Dehydrogenase C-Reactive Protein Total Protein Albumin Arterial Blood Glucose 252 H Arterial Blood Ionized Calcium 4.5 L Urine Creatinine Coronavirus (PCR) 12/31/20 12/31/20 12/31/20 11:57 16:57 21:37 WBC RBC MCHC Plt Count Lymph % (Auto) [place] % (Auto) Lymph # (Auto) Seg Neutrophils % Seg Neuts % (Manual) Lymphocytes % (Manual) Nucleated RBC % Seg Neutrophils # Seg Neutrophils # Man Lymphocytes # (Manual) D-Dimer ABG pH POC ABG pCO2 POC ABG pO2 ABG Oxyhemoglobin ABG Sodium ABG Glucose Sodium Potassium Chloride Carbon Dioxide BUN Creatinine Glucose POC Glucose 185 H 171 H 136 H Hemoglobin A1c Calcium Ferritin AST ALT Alkaline Phosphatase Lactate Dehydrogenase C-Reactive Protein Total Protein Albumin Arterial Blood Glucose Arterial Blood Ionized Calcium Urine Creatinine Coronavirus (PCR) 01/01/21 01/01/21 01/01/21 08:03 11:55 17:06 WBC RBC MCHC Plt Count Lymph % (Auto) [place] % (Auto) Lymph # (Auto) Seg Neutrophils % Seg Neuts % (Manual) Lymphocytes % (Manual) Nucleated RBC % Seg Neutrophils # Seg Neutrophils # Man Lymphocytes # (Manual) D-Dimer ABG pH POC ABG pCO2 POC ABG pO2 ABG Oxyhemoglobin ABG Sodium ABG Glucose Sodium Potassium Chloride Carbon Dioxide BUN Creatinine Glucose POC Glucose 160 H 155 H 193 H Hemoglobin A1c Calcium Ferritin AST ALT Alkaline Phosphatase Lactate Dehydrogenase C-Reactive Protein Total Protein Albumin Arterial Blood Glucose Arterial Blood Ionized Calcium Urine Creatinine Coronavirus (PCR) 01/01/21 01/02/21 01/02/21 22:20 07:22 11:54 WBC RBC MCHC Plt Count Lymph % (Auto) [place] % (Auto) Lymph # (Auto) Seg Neutrophils % Seg Neuts % (Manual) Lymphocytes % (Manual) Nucleated RBC % Seg Neutrophils # Seg Neutrophils # Man Lymphocytes # (Manual) D-Dimer ABG pH POC ABG pCO2 POC ABG pO2 ABG Oxyhemoglobin ABG Sodium ABG Glucose Sodium Potassium Chloride Carbon Dioxide BUN Creatinine Glucose POC Glucose 316 H 274 H 307 H Hemoglobin A1c Calcium Ferritin AST ALT Alkaline Phosphatase Lactate Dehydrogenase C-Reactive Protein Total Protein Albumin Arterial Blood Glucose Arterial Blood Ionized Calcium Urine Creatinine Coronavirus (PCR) 01/02/21 01/02/21 01/03/21 16:00 21:20 06:48 WBC RBC MCHC Plt Count Lymph % (Auto) [place] % (Auto) Lymph # (Auto) Seg Neutrophils % Seg Neuts % (Manual) Lymphocytes % (Manual) Nucleated RBC % Seg Neutrophils # Seg Neutrophils # Man Lymphocytes # (Manual) D-Dimer ABG pH POC ABG pCO2 POC ABG pO2 ABG Oxyhemoglobin ABG Sodium ABG Glucose Sodium 152 H Potassium Chloride 108.8 H Carbon Dioxide 32 H BUN 64 H Creatinine 1.3 H Glucose 180 H POC Glucose 303 H 263 H Hemoglobin A1c Calcium Ferritin AST ALT Alkaline Phosphatase Lactate Dehydrogenase C-Reactive Protein Total Protein Albumin Arterial Blood Glucose Arterial Blood Ionized Calcium Urine Creatinine Coronavirus (PCR) 01/03/21 08:28 WBC RBC MCHC Plt Count Lymph % (Auto) [place] % (Auto) Lymph # (Auto) Seg Neutrophils % Seg Neuts % (Manual) Lymphocytes % (Manual) Nucleated RBC % Seg Neutrophils # Seg Neutrophils # Man Lymphocytes # (Manual) D-Dimer ABG pH POC ABG pCO2 POC ABG pO2 ABG Oxyhemoglobin ABG Sodium ABG Glucose Sodium Potassium Chloride Carbon Dioxide BUN Creatinine Glucose POC Glucose 203 H Hemoglobin A1c Calcium Ferritin AST ALT Alkaline Phosphatase Lactate Dehydrogenase C-Reactive Protein Total Protein Albumin Arterial Blood Glucose Arterial Blood Ionized Calcium Urine Creatinine Coronavirus (PCR)
[2021-01-03] MEDS: DEXTROSE 5% IN WATER 1,000 ML IV SCH (12:42)
[2021-01-03 16:42] LABS: C-Reactive Protein 0.4 mg/dL (0.00-1.30)
[2021-01-03] MEDS: ENOXAPARIN 40 MG/0.4 ML INJ SUB-Q SCH (22:20)
[2021-01-03] MEDS: LORazepam 2 MG/ML VIAL IV PRN (22:22)
[2021-01-04] MEDS: INSULIN LISPRO 100 UNIT/ML SUB-Q SCH ×6 (02:14→21:42)
[2021-01-04] MEDS: methylPREDNISolone Sod Succinate 125 MG/2 ML INJ IV SCH (05:50)
[2021-01-04 06:45] LABS: Calcium 8.5 mg/dL (8.4-10.2)
[2021-01-04] MEDS: INSULIN NPH/REGULAR 70/30 INJ SUB-Q SCH ×2 (08:50→18:18)
[2021-01-04] MEDS: glipiZIDE 10 MG TAB PO SCH ×2 (08:55→16:45)
[2021-01-04] MEDS: AYR SALINE NASAL GEL 14.1 GM NS SCH ×2 (09:05→21:23)
[2021-01-04] MEDS: amLODIPine 10 MG TAB PO SCH (09:05)
[2021-01-04] MEDS: GABAPENTIN 400 MG CAP PO SCH ×2 (09:05→21:23)
--- NOTE | 2021-01-04 09:21 | Progress Note ---
Assessment and Plan 55 y/o female with acute respiratory failure secondary to cOVID 19 with prior history of ILD on a CT in [facility] 01/04/21: No lasix again today. Continue Free water at current IV rate as stated below. Check labs tomorrow. COntinue PPV and attempt to wean FiO2 accordingly. Consider nutrition consult for PPN. Prognosis still remains very guarded. 01/03/21: continue between HFNC and bipap. Will hold on lasix today as patient is getting more hypernatremia and worsening renal function. All secondary to lack of eating and drinking. Ok with starting with D5 at like 42/hr. Guarded prognosis. 01/02/21: Continue to avoid intubation at all costs. Continue high dose steroids. Given concern for ILD, may even need to consider pulse dose steroids but will discuss on rounds tomorrow. Lasix was given last night and yesterday morning. negative 1700 on yesterday. Please check labs in the am as I would like to give lasix again tonight. 01/01/21: Unfortunately, given her high risk for intubation, patient will not be able to eat. Nutrition has been an issue and we will discuss this on rounds. May need PPN. Continue steroids at current dosing. Will give an additional dose of lasix tonight. 12/31/20: will continue steroids today as same dose and frequency. No changes to lasix therapy. Need to keep patient as calm as possible to allow bipap to work to avoid intubation at all costs. Prognosis still remains guarded. 12/30/20: Continue steroids at 60q6. Continue daily lasix. may need to consider BID dosing to help with more volume removal if renal function will permit. Overall prognosis is very very guarded to poor, especially if the patient ends up on the mechanical ventilator. 12/29/20: Will increase steroids to q6 hour dosing to see if this helps. Prognosis is very very guarded. 12/28/20: Continue steroids and lasix, may need to ask renal about BID dosing for a few days to see if this will help. Prone as tolerated during the day and sleep prone at night. 1. Agree with change in steroids to solumedrol 60q8, will continue for now 2. Agree with daily lasix but goal should be daily net negative state. 3. Prone as tolerated during the day and sleep prone at night 4. Guarded prognosis Subjective Date of service: 01/04/21 Principal diagnosis: COVID-19 Interval history: Electrolytes better with addition of D5W drip and holding of lasix therapy. Still on bipap at 100%. Per rt when tried on HFNC she desatted to the low 80's. Objective Vital Signs - 12hr 01/03/21 01/03/21 01/03/21 21:30 22:00 22:30 Temperature Pulse Rate 72 71 74 Pulse Rate [ From Monitor] Respiratory 22 17 25 H Rate Blood Pressure 108/74 118/76 117/83 O2 Sat by Pulse 97 98 93 Oximetry 01/03/21 01/03/21 01/03/21 22:37 22:47 23:00 Temperature Pulse Rate 70 69 Pulse Rate [ From Monitor] Respiratory 20 17 Rate Blood Pressure 117/82 109/74 O2 Sat by Pulse 93 95 94 Oximetry 01/03/21 01/03/21 01/03/21 23:19 23:30 23:46 Temperature 96.9 F L Pulse Rate 70 70 Pulse Rate [ From Monitor] Respiratory 18 17 Rate Blood Pressure 109/74 98/69 O2 Sat by Pulse 93 96 Oximetry 01/04/21 01/04/21 01/04/21 00:00 00:30 01:00 Temperature Pulse Rate 70 69 66 Pulse Rate [ 70 From Monitor] Respiratory 18 18 18 Rate Blood Pressure 92/62 90/64 95/71 O2 Sat by Pulse 98 97 97 Oximetry 01/04/21 01/04/21 01/04/21 01:30 02:00 02:30 Temperature Pulse Rate 66 64 66 Pulse Rate [ From Monitor] Respiratory 16 16 18 Rate Blood Pressure 103/67 110/73 93/66 O2 Sat by Pulse 92 99 90 Oximetry 01/04/21 01/04/21 01/04/21 03:00 03:30 04:00 Temperature 96.9 F L Pulse Rate 66 67 70 Pulse Rate [ 70 From Monitor] Respiratory 16 16 17 Rate Blood Pressure 101/68 94/64 94/64 O2 Sat by Pulse 87 85 100 Oximetry 01/04/21 01/04/21 01/04/21 04:01 04:30 05:00 Temperature Pulse Rate 80 76 70 Pulse Rate [ From Monitor] Respiratory 25 H 26 H 17 Rate Blood Pressure 119/85 125/85 103/54 O2 Sat by Pulse 92 100 100 Oximetry 01/04/21 01/04/21 01/04/21 05:30 06:00 06:30 Temperature Pulse Rate 69 70 68 Pulse Rate [ From Monitor] Respiratory 22 22 16 Rate Blood Pressure 118/71 121/79 96/61 O2 Sat by Pulse 73 L 93 Oximetry 01/04/21 01/04/21 01/04/21 07:00 07:30 07:45 Temperature 98.6 F Pulse Rate 67 65 Pulse Rate [ From Monitor] Respiratory 15 16 Rate Blood Pressure 92/63 98/69 O2 Sat by Pulse 93 98 Oximetry 01/04/21 08:48 Temperature Pulse Rate 67 Pulse Rate [ From Monitor] Respiratory 32 H Rate Blood Pressure 90/69 O2 Sat by Pulse 94 Oximetry Constitutional: no acute distress, alert (obese), other (on BIPAP) Eyes: non-icteric ENT: oropharynx moist Neck: supple Effort: normal Ascultation: Bilateral: clear, diminished breath sounds (anteriorly) Cardiovascular: regular rate and rhythm (no mrg) Gastrointestinal: normoactive bowel sounds, soft, non-tender, non-distended Integumentary: normal Extremities: no cyanosis, no edema, pink and warm Neurologic: normal mental status, non-focal exam Psychiatric: mood appropriate, affect normal CBC and BMP: 12/27/20 04:25 01/04/21 05:12 ABG, PT/INR, D-dimer: ABG ABG pH 7.454 (7.320-7.450) H 12/30/20 18:03 POC ABG pCO2 49.7 mmHg (32.0-48.0) H 12/30/20 18:03 POC ABG pO2 59.0 mmHg (83-108) L 12/30/20 18:03 POC ABG HCO3 34.1 12/30/20 18:03 ABG O2 Saturation 89.9 (0-100) 12/30/20 18:03 PT/INR, D-dimer PT 13.1 Sec. (12.2-14.9) 12/21/20 05:50 INR 1.01 (0.87-1.13) 12/21/20 05:50 D-Dimer 1259.33 ng/mlDDU (0-234) H 01/03/21 16:00 Abnormal lab findings: Abnormal Labs 12/20/20 12/20/2021 19:27 19:27 19:27 WBC 2.9 L RBC MCHC Plt Count 116 L Lymph % (Auto) 41.2 H [place] % (Auto) 13.2 H Lymph # (Auto) Seg Neutrophils % Seg Neuts % (Manual) Lymphocytes % (Manual) Nucleated RBC % Seg Neutrophils # 1.3 L Seg Neutrophils # Man Lymphocytes # (Manual) D-Dimer 260.58 H ABG pH POC ABG pCO2 POC ABG pO2 ABG Oxyhemoglobin ABG Sodium ABG Glucose Sodium 135 L Potassium Chloride 96.1 L Carbon Dioxide BUN 23 H Creatinine 1.4 H Glucose 295 H POC Glucose Hemoglobin A1c Calcium 8.3 L Magnesium Ferritin AST 125 H ALT 96 H Alkaline Phosphatase 323 H Lactate Dehydrogenase C-Reactive Protein Total Protein 8.7 H Albumin 3.7 L Arterial Blood Glucose Arterial Blood Ionized Calcium Urine Creatinine Coronavirus (PCR) 12/20/20 12/20/20 12/21/20 19:43 19:43 05:50 WBC RBC MCHC Plt Count Lymph % (Auto) [place] % (Auto) Lymph # (Auto) Seg Neutrophils % Seg Neuts % (Manual) Lymphocytes % (Manual) Nucleated RBC % Seg Neutrophils # Seg Neutrophils # Man Lymphocytes # (Manual) D-Dimer ABG pH POC ABG pCO2 POC ABG pO2 ABG Oxyhemoglobin ABG Sodium ABG Glucose Sodium Potassium Chloride Carbon Dioxide BUN Creatinine Glucose 297 H POC Glucose Hemoglobin A1c 10.3 H Calcium Magnesium Ferritin 1420.0 H AST ALT Alkaline Phosphatase Lactate Dehydrogenase 491 H C-Reactive Protein 5.50 H Total Protein Albumin Arterial Blood Glucose Arterial Blood Ionized Calcium Urine Creatinine Coronavirus (PCR) 12/21/20 12/21/20 12/21/20 05:50 05:50 08:04 WBC 1.6 L* RBC 3.40 L MCHC Plt Count 104 L Lymph % (Auto) [place] % (Auto) Lymph # (Auto) Seg Neutrophils % Seg Neuts % (Manual) 82.0 H Lymphocytes % (Manual) Nucleated RBC % Seg Neutrophils # Seg Neutrophils # Man 1.3 L Lymphocytes # (Manual) 0.3 L D-Dimer ABG pH POC ABG pCO2 POC ABG pO2 ABG Oxyhemoglobin ABG Sodium ABG Glucose Sodium 132 L Potassium 5.7 H D Chloride 95.7 L Carbon Dioxide BUN 33 H Creatinine 1.7 H Glucose 500 H POC Glucose 483 H Hemoglobin A1c Calcium 7.7 L Magnesium Ferritin AST ALT Alkaline Phosphatase Lactate Dehydrogenase C-Reactive Protein Total Protein Albumin Arterial Blood Glucose Arterial Blood Ionized Calcium Urine Creatinine Coronavirus (PCR) 12/21/20 12/21/20 12/21/20 10:28 12:05 16:54 WBC RBC MCHC Plt Count Lymph % (Auto) [place] % (Auto) Lymph # (Auto) Seg Neutrophils % Seg Neuts % (Manual) Lymphocytes % (Manual) Nucleated RBC % Seg Neutrophils # Seg Neutrophils # Man Lymphocytes # (Manual) D-Dimer ABG pH POC ABG pCO2 POC ABG pO2 ABG Oxyhemoglobin ABG Sodium ABG Glucose Sodium Potassium Chloride Carbon Dioxide BUN Creatinine Glucose POC Glucose 482 H 374 H Hemoglobin A1c Calcium Magnesium Ferritin AST ALT Alkaline Phosphatase Lactate Dehydrogenase C-Reactive Protein Total Protein Albumin Arterial Blood Glucose Arterial Blood Ionized Calcium Urine Creatinine Coronavirus (PCR) Positive A 12/21/20 12/21/20 12/22/20 18:24 22:12 03:00 WBC RBC MCHC Plt Count Lymph % (Auto) [place] % (Auto) Lymph # (Auto) Seg Neutrophils % Seg Neuts % (Manual) Lymphocytes % (Manual) Nucleated RBC % Seg Neutrophils # Seg Neutrophils # Man Lymphocytes # (Manual) D-Dimer ABG pH POC ABG pCO2 POC ABG pO2 ABG Oxyhemoglobin ABG Sodium ABG Glucose Sodium 131 L Potassium Chloride 95.2 L Carbon Dioxide BUN 37 H Creatinine 1.4 H Glucose 417 H POC Glucose 358 H Hemoglobin A1c Calcium 7.5 L Magnesium Ferritin AST 82 H ALT 69 H Alkaline Phosphatase 262 H Lactate Dehydrogenase C-Reactive Protein Total Protein Albumin 3.0 L Arterial Blood Glucose Arterial Blood Ionized Calcium Urine Creatinine 117.9 H Coronavirus (PCR) 12/22/20 12/22/20 12/22/20 05:29 08:19 11:18 WBC RBC MCHC Plt Count Lymph % (Auto) [place] % (Auto) Lymph # (Auto) Seg Neutrophils % Seg Neuts % (Manual) Lymphocytes % (Manual) Nucleated RBC % Seg Neutrophils # Seg Neutrophils # Man Lymphocytes # (Manual) D-Dimer ABG pH POC ABG pCO2 POC ABG pO2 ABG Oxyhemoglobin ABG Sodium ABG Glucose Sodium Potassium Chloride Carbon Dioxide BUN 34 H Creatinine 1.3 H Glucose 169 H POC Glucose 136 H 132 H Hemoglobin A1c Calcium 7.5 L Magnesium Ferritin AST 74 H ALT 60 H Alkaline Phosphatase 249 H Lactate Dehydrogenase C-Reactive Protein Total Protein Albumin 3.1 L Arterial Blood Glucose Arterial Blood Ionized Calcium Urine Creatinine Coronavirus (PCR) 12/22/20 12/22/20 12/22/20 14:18 14:18 16:36 WBC RBC MCHC Plt Count Lymph % (Auto) [place] % (Auto) Lymph # (Auto) Seg Neutrophils % Seg Neuts % (Manual) Lymphocytes % (Manual) Nucleated RBC % Seg Neutrophils # Seg Neutrophils # Man Lymphocytes # (Manual) D-Dimer ABG pH POC ABG pCO2 POC ABG pO2 ABG Oxyhemoglobin ABG Sodium ABG Glucose Sodium Potassium Chloride Carbon Dioxide BUN Creatinine Glucose POC Glucose 440 H Hemoglobin A1c Calcium Magnesium Ferritin 1295.0 H AST ALT Alkaline Phosphatase Lactate Dehydrogenase 620 H C-Reactive Protein 2.70 H Total Protein Albumin Arterial Blood Glucose Arterial Blood Ionized Calcium Urine Creatinine Coronavirus (PCR) 12/22/20 12/23/20 12/23/20 21:07 08:09 11:30 WBC RBC MCHC Plt Count Lymph % (Auto) [place] % (Auto) Lymph # (Auto) Seg Neutrophils % Seg Neuts % (Manual) Lymphocytes % (Manual) Nucleated RBC % Seg Neutrophils # Seg Neutrophils # Man Lymphocytes # (Manual) D-Dimer ABG pH POC ABG pCO2 POC ABG pO2 ABG Oxyhemoglobin ABG Sodium ABG Glucose Sodium Potassium Chloride Carbon Dioxide BUN Creatinine Glucose POC Glucose 493 H 156 H 185 H Hemoglobin A1c Calcium Magnesium Ferritin AST ALT Alkaline Phosphatase Lactate Dehydrogenase C-Reactive Protein Total Protein Albumin Arterial Blood Glucose Arterial Blood Ionized Calcium Urine Creatinine Coronavirus (PCR) 12/23/20 12/23/20 12/23/20 14:09 14:09 16:26 WBC 1.8 L* RBC 3.45 L MCHC Plt Count 114 L Lymph % (Auto) [place] % (Auto) Lymph # (Auto) Seg Neutrophils % Seg Neuts % (Manual) 87.0 H Lymphocytes % (Manual) 3.0 L Nucleated RBC % 1.0 H Seg Neutrophils # Seg Neutrophils # Man 1.6 L Lymphocytes # (Manual) 0.1 L D-Dimer ABG pH POC ABG pCO2 POC ABG pO2 ABG Oxyhemoglobin ABG Sodium ABG Glucose Sodium Potassium Chloride Carbon Dioxide BUN 19 H Creatinine Glucose 292 H POC Glucose 351 H Hemoglobin A1c Calcium 7.4 L Magnesium Ferritin AST 71 H ALT Alkaline Phosphatase 264 H Lactate Dehydrogenase C-Reactive Protein Total Protein Albumin 3.0 L Arterial Blood Glucose Arterial Blood Ionized Calcium Urine Creatinine Coronavirus (PCR) 12/23/20 12/24/20 12/24/20 21:11 08:21 11:58 WBC RBC MCHC Plt Count Lymph % (Auto) [place] % (Auto) Lymph # (Auto) Seg Neutrophils % Seg Neuts % (Manual) Lymphocytes % (Manual) Nucleated RBC % Seg Neutrophils # Seg Neutrophils # Man Lymphocytes # (Manual) D-Dimer ABG pH POC ABG pCO2 POC ABG pO2 ABG Oxyhemoglobin ABG Sodium ABG Glucose Sodium Potassium Chloride Carbon Dioxide BUN Creatinine Glucose POC Glucose 288 H 286 H 277 H Hemoglobin A1c Calcium Magnesium Ferritin AST ALT Alkaline Phosphatase Lactate Dehydrogenase C-Reactive Protein Total Protein Albumin Arterial Blood Glucose Arterial Blood Ionized Calcium Urine Creatinine Coronavirus (PCR) 12/24/20 12/24/20 12/24/20 12:29 12:29 16:05 WBC 2.5 L RBC 3.49 L MCHC 35 H Plt Count 132 L Lymph % (Auto) [place] % (Auto) 7.6 H Lymph # (Auto) 0.4 L Seg Neutrophils % 74.7 H Seg Neuts % (Manual) Lymphocytes % (Manual) Nucleated RBC % Seg Neutrophils # Seg Neutrophils # Man Lymphocytes # (Manual) D-Dimer ABG pH POC ABG pCO2 POC ABG pO2 ABG Oxyhemoglobin ABG Sodium ABG Glucose Sodium Potassium Chloride Carbon Dioxide BUN Creatinine Glucose 256 H POC Glucose 282 H Hemoglobin A1c Calcium 7.8 L Magnesium Ferritin AST 50 H ALT Alkaline Phosphatase 262 H Lactate Dehydrogenase C-Reactive Protein Total Protein Albumin 2.8 L Arterial Blood Glucose Arterial Blood Ionized Calcium Urine Creatinine Coronavirus (PCR) 12/24/20 12/25/20 12/25/20 22:01 07:58 11:38 WBC RBC MCHC Plt Count Lymph % (Auto) [place] % (Auto) Lymph # (Auto) Seg Neutrophils % Seg Neuts % (Manual) Lymphocytes % (Manual) Nucleated RBC % Seg Neutrophils # Seg Neutrophils # Man Lymphocytes # (Manual) D-Dimer ABG pH POC ABG pCO2 POC ABG pO2 ABG Oxyhemoglobin ABG Sodium ABG Glucose Sodium Potassium Chloride Carbon Dioxide BUN Creatinine Glucose POC Glucose 366 H 278 H 325 H Hemoglobin A1c Calcium Magnesium Ferritin AST ALT Alkaline Phosphatase Lactate Dehydrogenase C-Reactive Protein Total Protein Albumin Arterial Blood Glucose Arterial Blood Ionized Calcium Urine Creatinine Coronavirus (PCR) 12/25/20 12/25/20 12/26/20 15:47 21:31 04:29 WBC RBC MCHC Plt Count Lymph % (Auto) [place] % (Auto) Lymph # (Auto) Seg Neutrophils % Seg Neuts % (Manual) Lymphocytes % (Manual) Nucleated RBC % Seg Neutrophils # Seg Neutrophils # Man Lymphocytes # (Manual) D-Dimer ABG pH POC ABG pCO2 POC ABG pO2 ABG Oxyhemoglobin ABG Sodium ABG Glucose Sodium Potassium Chloride Carbon Dioxide BUN 22 H Creatinine Glucose 327 H POC Glucose 316 H 339 H Hemoglobin A1c Calcium 7.9 L Magnesium Ferritin AST ALT Alkaline Phosphatase Lactate Dehydrogenase C-Reactive Protein Total Protein Albumin Arterial Blood Glucose Arterial Blood Ionized Calcium Urine Creatinine Coronavirus (PCR) 12/26/20 12/26/20 12/26/20 07:42 11:08 11:08 WBC RBC MCHC Plt Count Lymph % (Auto) [place] % (Auto) Lymph # (Auto) Seg Neutrophils % Seg Neuts % (Manual) Lymphocytes % (Manual) Nucleated RBC % Seg Neutrophils # Seg Neutrophils # Man Lymphocytes # (Manual) D-Dimer 1954.54 H ABG pH POC ABG pCO2 POC ABG pO2 ABG Oxyhemoglobin ABG Sodium ABG Glucose Sodium Potassium Chloride Carbon Dioxide BUN Creatinine Glucose POC Glucose 353 H Hemoglobin A1c Calcium Magnesium Ferritin 932.1 H AST ALT Alkaline Phosphatase Lactate Dehydrogenase C-Reactive Protein Total Protein Albumin Arterial Blood Glucose Arterial Blood Ionized Calcium Urine Creatinine Coronavirus (PCR) 12/26/20 12/26/20 12/26/20 11:08 11:57 16:40 WBC RBC MCHC Plt Count Lymph % (Auto) [place] % (Auto) Lymph # (Auto) Seg Neutrophils % Seg Neuts % (Manual) Lymphocytes % (Manual) Nucleated RBC % Seg Neutrophils # Seg Neutrophils # Man Lymphocytes # (Manual) D-Dimer ABG pH POC ABG pCO2 POC ABG pO2 ABG Oxyhemoglobin ABG Sodium ABG Glucose Sodium Potassium Chloride Carbon Dioxide BUN Creatinine Glucose POC Glucose 318 H 352 H Hemoglobin A1c Calcium Magnesium Ferritin AST ALT Alkaline Phosphatase Lactate Dehydrogenase 698 H C-Reactive Protein 3.70 H Total Protein Albumin Arterial Blood Glucose Arterial Blood Ionized Calcium Urine Creatinine Coronavirus (PCR) 12/26/20 12/27/20 12/27/20 21:29 04:25 04:25 WBC RBC MCHC Plt Count Lymph % (Auto) 6.4 L [place] % (Auto) 7.5 H Lymph # (Auto) 0.5 L Seg Neutrophils % 85.9 H Seg Neuts % (Manual) Lymphocytes % (Manual) Nucleated RBC % Seg Neutrophils # Seg Neutrophils # Man Lymphocytes # (Manual) D-Dimer ABG pH POC ABG pCO2 POC ABG pO2 ABG Oxyhemoglobin ABG Sodium ABG Glucose Sodium Potassium 5.4 H D Chloride Carbon Dioxide BUN 30 H Creatinine Glucose 273 H POC Glucose 376 H Hemoglobin A1c Calcium 8.1 L Magnesium Ferritin AST ALT Alkaline Phosphatase 242 H Lactate Dehydrogenase C-Reactive Protein Total Protein Albumin 2.7 L Arterial Blood Glucose Arterial Blood Ionized Calcium Urine Creatinine Coronavirus (PCR) 12/27/20 12/27/20 12/27/20 08:05 11:39 17:28 WBC RBC MCHC Plt Count Lymph % (Auto) [place] % (Auto) Lymph # (Auto) Seg Neutrophils % Seg Neuts % (Manual) Lymphocytes % (Manual) Nucleated RBC % Seg Neutrophils # Seg Neutrophils # Man Lymphocytes # (Manual) D-Dimer ABG pH POC ABG pCO2 POC ABG pO2 ABG Oxyhemoglobin ABG Sodium ABG Glucose Sodium Potassium Chloride Carbon Dioxide BUN Creatinine Glucose POC Glucose 287 H 359 H 490 H Hemoglobin A1c Calcium Magnesium Ferritin AST ALT Alkaline Phosphatase Lactate Dehydrogenase C-Reactive Protein Total Protein Albumin Arterial Blood Glucose Arterial Blood Ionized Calcium Urine Creatinine Coronavirus (PCR) 12/27/20 12/27/20 12/28/20 21:43 21:53 04:41 WBC RBC MCHC Plt Count Lymph % (Auto) [place] % (Auto) Lymph # (Auto) Seg Neutrophils % Seg Neuts % (Manual) Lymphocytes % (Manual) Nucleated RBC % Seg Neutrophils # Seg Neutrophils # Man Lymphocytes # (Manual) D-Dimer ABG pH POC ABG pCO2 POC ABG pO2 ABG Oxyhemoglobin ABG Sodium ABG Glucose Sodium Potassium Chloride Carbon Dioxide 31 H BUN 35 H Creatinine Glucose 328 H POC Glucose 503 H 438 H Hemoglobin A1c Calcium Magnesium Ferritin AST ALT Alkaline Phosphatase Lactate Dehydrogenase C-Reactive Protein Total Protein Albumin Arterial Blood Glucose Arterial Blood Ionized Calcium Urine Creatinine Coronavirus (PCR) 12/28/20 12/28/20 12/28/20 07:58 11:40 15:43 WBC RBC MCHC Plt Count Lymph % (Auto) [place] % (Auto) Lymph # (Auto) Seg Neutrophils % Seg Neuts % (Manual) Lymphocytes % (Manual) Nucleated RBC % Seg Neutrophils # Seg Neutrophils # Man Lymphocytes # (Manual) D-Dimer 4626.15 H ABG pH POC ABG pCO2 POC ABG pO2 ABG Oxyhemoglobin ABG Sodium ABG Glucose Sodium Potassium Chloride Carbon Dioxide BUN Creatinine Glucose POC Glucose 321 H 455 H Hemoglobin A1c Calcium Magnesium Ferritin AST ALT Alkaline Phosphatase Lactate Dehydrogenase C-Reactive Protein Total Protein Albumin Arterial Blood Glucose Arterial Blood Ionized Calcium Urine Creatinine Coronavirus (PCR) 12/28/20 12/28/20 12/28/20 15:43 15:43 17:10 WBC RBC MCHC Plt Count Lymph % (Auto) [place] % (Auto) Lymph # (Auto) Seg Neutrophils % Seg Neuts % (Manual) Lymphocytes % (Manual) Nucleated RBC % Seg Neutrophils # Seg Neutrophils # Man Lymphocytes # (Manual) D-Dimer ABG pH POC ABG pCO2 POC ABG pO2 ABG Oxyhemoglobin ABG Sodium ABG Glucose Sodium Potassium Chloride Carbon Dioxide BUN Creatinine Glucose POC Glucose 291 H Hemoglobin A1c Calcium Magnesium Ferritin 1030.0 H AST ALT Alkaline Phosphatase Lactate Dehydrogenase 838 H C-Reactive Protein Total Protein Albumin Arterial Blood Glucose Arterial Blood Ionized Calcium Urine Creatinine Coronavirus (PCR) 12/28/20 12/29/20 12/29/20 21:42 05:12 08:25 WBC RBC MCHC Plt Count Lymph % (Auto) [place] % (Auto) Lymph # (Auto) Seg Neutrophils % Seg Neuts % (Manual) Lymphocytes % (Manual) Nucleated RBC % Seg Neutrophils # Seg Neutrophils # Man Lymphocytes # (Manual) D-Dimer ABG pH POC ABG pCO2 POC ABG pO2 ABG Oxyhemoglobin ABG Sodium ABG Glucose Sodium 146 H Potassium Chloride Carbon Dioxide 32 H BUN 34 H Creatinine Glucose 126 H POC Glucose 240 H 176 H Hemoglobin A1c Calcium Magnesium Ferritin AST ALT Alkaline Phosphatase Lactate Dehydrogenase C-Reactive Protein Total Protein Albumin Arterial Blood Glucose Arterial Blood Ionized Calcium Urine Creatinine Coronavirus (PCR) 12/29/20 12/29/20 12/29/20 11:24 16:49 21:39 WBC RBC MCHC Plt Count Lymph % (Auto) [place] % (Auto) Lymph # (Auto) Seg Neutrophils % Seg Neuts % (Manual) Lymphocytes % (Manual) Nucleated RBC % Seg Neutrophils # Seg Neutrophils # Man Lymphocytes # (Manual) D-Dimer ABG pH POC ABG pCO2 POC ABG pO2 ABG Oxyhemoglobin ABG Sodium ABG Glucose Sodium Potassium Chloride Carbon Dioxide BUN Creatinine Glucose POC Glucose 209 H 226 H 169 H Hemoglobin A1c Calcium Magnesium Ferritin AST ALT Alkaline Phosphatase Lactate Dehydrogenase C-Reactive Protein Total Protein Albumin Arterial Blood Glucose Arterial Blood Ionized Calcium Urine Creatinine Coronavirus (PCR) 12/30/20 12/30/20 12/30/20 07:34 12:17 16:29 WBC RBC MCHC Plt Count Lymph % (Auto) [place] % (Auto) Lymph # (Auto) Seg Neutrophils % Seg Neuts % (Manual) Lymphocytes % (Manual) Nucleated RBC % Seg Neutrophils # Seg Neutrophils # Man Lymphocytes # (Manual) D-Dimer ABG pH POC ABG pCO2 POC ABG pO2 ABG Oxyhemoglobin ABG Sodium ABG Glucose Sodium Potassium Chloride Carbon Dioxide BUN Creatinine Glucose POC Glucose 206 H 261 H 229 H Hemoglobin A1c Calcium Magnesium Ferritin AST ALT Alkaline Phosphatase Lactate Dehydrogenase C-Reactive Protein Total Protein Albumin Arterial Blood Glucose Arterial Blood Ionized Calcium Urine Creatinine Coronavirus (PCR) 12/30/20 12/30/20 12/31/20 18:03 23:13 08:43 WBC RBC MCHC Plt Count Lymph % (Auto) [place] % (Auto) Lymph # (Auto) Seg Neutrophils % Seg Neuts % (Manual) Lymphocytes % (Manual) Nucleated RBC % Seg Neutrophils # Seg Neutrophils # Man Lymphocytes # (Manual) D-Dimer ABG pH 7.454 H POC ABG pCO2 49.7 H POC ABG pO2 59.0 L ABG Oxyhemoglobin 88.6 L ABG Sodium 146.4 H ABG Glucose 252 H Sodium Potassium Chloride Carbon Dioxide BUN Creatinine Glucose POC Glucose 188 H 191 H Hemoglobin A1c Calcium Magnesium Ferritin AST ALT Alkaline Phosphatase Lactate Dehydrogenase C-Reactive Protein Total Protein Albumin Arterial Blood Glucose 252 H Arterial Blood Ionized Calcium 4.5 L Urine Creatinine Coronavirus (PCR) 12/31/20 12/31/20 12/31/20 11:57 16:57 21:37 WBC RBC MCHC Plt Count Lymph % (Auto) [place] % (Auto) Lymph # (Auto) Seg Neutrophils % Seg Neuts % (Manual) Lymphocytes % (Manual) Nucleated RBC % Seg Neutrophils # Seg Neutrophils # Man Lymphocytes # (Manual) D-Dimer ABG pH POC ABG pCO2 POC ABG pO2 ABG Oxyhemoglobin ABG Sodium ABG Glucose Sodium Potassium Chloride Carbon Dioxide BUN Creatinine Glucose POC Glucose 185 H 171 H 136 H Hemoglobin A1c Calcium Magnesium Ferritin AST ALT Alkaline Phosphatase Lactate Dehydrogenase C-Reactive Protein Total Protein Albumin Arterial Blood Glucose Arterial Blood Ionized Calcium Urine Creatinine Coronavirus (PCR) 01/01/21 01/01/21 01/01/21 08:03 11:55 17:06 WBC RBC MCHC Plt Count Lymph % (Auto) [place] % (Auto) Lymph # (Auto) Seg Neutrophils % Seg Neuts % (Manual) Lymphocytes % (Manual) Nucleated RBC % Seg Neutrophils # Seg Neutrophils # Man Lymphocytes # (Manual) D-Dimer ABG pH POC ABG pCO2 POC ABG pO2 ABG Oxyhemoglobin ABG Sodium ABG Glucose Sodium Potassium Chloride Carbon Dioxide BUN Creatinine Glucose POC Glucose 160 H 155 H 193 H Hemoglobin A1c Calcium Magnesium Ferritin AST ALT Alkaline Phosphatase Lactate Dehydrogenase C-Reactive Protein Total Protein Albumin Arterial Blood Glucose Arterial Blood Ionized Calcium Urine Creatinine Coronavirus (PCR) 01/01/21 01/02/21 01/02/21 22:20 07:22 11:54 WBC RBC MCHC Plt Count Lymph % (Auto) [place] % (Auto) Lymph # (Auto) Seg Neutrophils % Seg Neuts % (Manual) Lymphocytes % (Manual) Nucleated RBC % Seg Neutrophils # Seg Neutrophils # Man Lymphocytes # (Manual) D-Dimer ABG pH POC ABG pCO2 POC ABG pO2 ABG Oxyhemoglobin ABG Sodium ABG Glucose Sodium Potassium Chloride Carbon Dioxide BUN Creatinine Glucose POC Glucose 316 H 274 H 307 H Hemoglobin A1c Calcium Magnesium Ferritin AST ALT Alkaline Phosphatase Lactate Dehydrogenase C-Reactive Protein Total Protein Albumin Arterial Blood Glucose Arterial Blood Ionized Calcium Urine Creatinine Coronavirus (PCR) 01/02/21 01/02/21 01/03/21 16:00 21:20 06:48 WBC RBC MCHC Plt Count Lymph % (Auto) [place] % (Auto) Lymph # (Auto) Seg Neutrophils % Seg Neuts % (Manual) Lymphocytes % (Manual) Nucleated RBC % Seg Neutrophils # Seg Neutrophils # Man Lymphocytes # (Manual) D-Dimer ABG pH POC ABG pCO2 POC ABG pO2 ABG Oxyhemoglobin ABG Sodium ABG Glucose Sodium 152 H Potassium Chloride 108.8 H Carbon Dioxide 32 H BUN 64 H Creatinine 1.3 H Glucose 180 H POC Glucose 303 H 263 H Hemoglobin A1c Calcium Magnesium Ferritin AST ALT Alkaline Phosphatase Lactate Dehydrogenase C-Reactive Protein Total Protein Albumin Arterial Blood Glucose Arterial Blood Ionized Calcium Urine Creatinine Coronavirus (PCR) 01/03/21 01/03/21 01/03/21 08:28 11:44 13:59 WBC RBC MCHC Plt Count Lymph % (Auto) [place] % (Auto) Lymph # (Auto) Seg Neutrophils % Seg Neuts % (Manual) Lymphocytes % (Manual) Nucleated RBC % Seg Neutrophils # Seg Neutrophils # Man Lymphocytes # (Manual) D-Dimer ABG pH POC ABG pCO2 POC ABG pO2 ABG Oxyhemoglobin ABG Sodium ABG Glucose Sodium Potassium Chloride Carbon Dioxide BUN Creatinine Glucose POC Glucose 203 H 339 H 362 H Hemoglobin A1c Calcium Magnesium Ferritin AST ALT Alkaline Phosphatase Lactate Dehydrogenase C-Reactive Protein Total Protein Albumin Arterial Blood Glucose Arterial Blood Ionized Calcium Urine Creatinine Coronavirus (PCR) 01/03/21 01/03/21 01/03/21 16:00 16:00 16:00 WBC RBC MCHC Plt Count Lymph % (Auto) [place] % (Auto) Lymph # (Auto) Seg Neutrophils % Seg Neuts % (Manual) Lymphocytes % (Manual) Nucleated RBC % Seg Neutrophils # Seg Neutrophils # Man Lymphocytes # (Manual) D-Dimer 1259.33 H ABG pH POC ABG pCO2 POC ABG pO2 ABG Oxyhemoglobin ABG Sodium ABG Glucose Sodium Potassium Chloride Carbon Dioxide BUN Creatinine Glucose POC Glucose Hemoglobin A1c Calcium Magnesium Ferritin 1526.0 H AST ALT Alkaline Phosphatase Lactate Dehydrogenase 815 H C-Reactive Protein Total Protein Albumin Arterial Blood Glucose Arterial Blood Ionized Calcium Urine Creatinine Coronavirus (PCR) 01/03/21 01/03/21 01/04/21 18:13 21:23 01:46 WBC RBC MCHC Plt Count Lymph % (Auto) [place] % (Auto) Lymph # (Auto) Seg Neutrophils % Seg Neuts % (Manual) Lymphocytes % (Manual) Nucleated RBC % Seg Neutrophils # Seg Neutrophils # Man Lymphocytes # (Manual) D-Dimer ABG pH POC ABG pCO2 POC ABG pO2 ABG Oxyhemoglobin ABG Sodium ABG Glucose Sodium Potassium Chloride Carbon Dioxide BUN Creatinine Glucose POC Glucose 349 H 312 H 264 H Hemoglobin A1c Calcium Magnesium Ferritin AST ALT Alkaline Phosphatase Lactate Dehydrogenase C-Reactive Protein Total Protein Albumin Arterial Blood Glucose Arterial Blood Ionized Calcium Urine Creatinine Coronavirus (PCR) 01/04/21 01/04/21 01/04/21 05:12 05:35 07:36 WBC RBC MCHC Plt Count Lymph % (Auto) [place] % (Auto) Lymph # (Auto) Seg Neutrophils % Seg Neuts % (Manual) Lymphocytes % (Manual) Nucleated RBC % Seg Neutrophils # Seg Neutrophils # Man Lymphocytes # (Manual) D-Dimer ABG pH POC ABG pCO2 POC ABG pO2 ABG Oxyhemoglobin ABG Sodium ABG Glucose Sodium 147 H Potassium Chloride Carbon Dioxide 34 H BUN 59 H Creatinine Glucose 208 H POC Glucose 193 H 197 H Hemoglobin A1c Calcium Magnesium 2.60 H Ferritin AST ALT Alkaline Phosphatase Lactate Dehydrogenase C-Reactive Protein Total Protein Albumin Arterial Blood Glucose Arterial Blood Ionized Calcium Urine Creatinine Coronavirus (PCR)
--- NOTE | 2021-01-04 10:41 | Event Note ---
Date: 01/04/21 Spoke with son over the phone, Tyler Correa to update him and explain the move to ICU. Have elected to try pulse dose steroids with this patient given her history of possibly ILD from a CT at [facility] prior to this admission. Will move to ICU as she may require insulin drip to control blood sugars. Son is in agreement and understands the move. Will call again on to update him on how she is tolerating the stress dose steroids.
[2021-01-04] MEDS: methylPREDNISolone Sod Suc 1,000 MG in SODIUM CHLORIDE 0.9% 250ML 250 ML IV SCH (11:29)
[2021-01-04] MEDS: DEXTROSE 5% IN WATER 1,000 ML IV SCH (11:29)
--- NOTE | 2021-01-04 11:35 | Progress Note ---
Assessment and Plan Assessment and plan: Patient is on continuous BiPAP, severely hypoxemic, as she is not able to proper oral nutrition TPN started by office manager, pulse dose steroids for possible ILD on CT scan at [facility] Accountant Certified Public transfer the patient to ICU to closely monitor blood sugars and start insulin drip if needed --COVID-19 test positive on 12/21/2020 --Acute hypoxic respiratory failure; Continuous BiPAP, unable to tolerate high flow nasal cannula oxygen Due to severe COVID-19 infection,h/o ILD Obesity hypoventilation syndrome Wean oxygen as tolerated, prone positioning encouraged --History of interstitial lung disease; on CT scan at [facility] Pulmonary planning to start pulse dose steroids There is a risk of severe hyperglycemia, if it happens we will start insulin drip And manage the blood sugars appropriately --Sepsis due to COVID-19 pneumonia Procalcitonin low, no need for antibiotics --Severe, COVID-19 infection;Guarded prognosis Completed remdesivir Received Tocilizumab Continue IV steroids per pulmonary Monitor inflammatory markers Prone positioning as tolerated Home oxygen evaluation prior to discharge --Elevated D-dimers; due to COVID-19 Negative PE, negative DVT --Hyponatremia; dehydration, poor oral intake Advised plenty free water as tolerated --Acute kidney injury; vasomotor nephropathy Secondary to dehydration, gentle hydration, free water as needed --Diabetes mellitus type 2; uncontrolled,A1c 10.3 Moderate control, Accu-Chek sliding scale coverage ADA diet Increase 7030 to 34 units subcu twice a day Diabetic education,diet education when patient is more stable --Morbid obesity; BMI 46.2 Patient needs weight reduction when medically stable --OHS/JERMAINE; due to morbid obesity Patient needs outpatient sleep study to rule out JERMAINE CPAP/BiPAP at night and as needed --Elevated LFTs probably Covid related; Present on admission, resolved . --DVT prophylaxis; Lovenox Closely monitor the patient and adjust the management as needed Rn Liaison recommendations noted and appreciated Plan of care reviewed with the patient and her nurse Patient is critically ill with guarded prognosis Patient and family aware The high probability of a clinically significant, sudden or life threatening deterioration of the [multi] system(s) required my full and direct attention, intervention and personal management. The aggregate critical care time was [45] minutes. This time is in addition to time spent performing reported procedures but includes the following: [x] Data Review and interpretation [x] Patient assessment and monitoring of vital signs [x] Documentation [x] Medication orders and management Brief history and daily patient care; Morbidly obese 55 y/o -[place] female patient past medical history of ILD on CT scan[per [place] records] was admitted with worsening shortness of breath noted to have severe COVID-19 pneumonia. With acute hypoxic respiratory failure, high flow nasal oxygen and BiPAP dependent. ID pulmonary following 12/21/2020. Follow-up COVID-19 testing. Continue to trend inflammatory markers. Continue dexamethasone. ID and pulmonary consultation pending. Patient currently with 6 L/min O2 FiO2 44%. 12/22/2020. COVID-19 testing found to be positive. Continue to trend inflammatory markers. Continue dexamethasone. Patient requiring more oxygen with high flow nasal cannula 30 L/min and FiO2 100%. ID and pulmonary following. 12/23/2020. Patient with increasing oxygen requirements with high flow nasal cannula 40 L/min with FiO2 100%. Continue dexamethasone per ID recommendations. We will transfer to IM for closer monitoring. 12/24/2020. Patient was transferred to IMCU for closer monitoring yesterday. Patient currently requiring BiPAP with IPAP 16 and EPAP of 8 with FiO2 100%. Continue dexamethasone and remdesivir. Continue to trend inflammatory markers. Continue anticoagulation. Prone position as possible. Continue ceftriaxone and azithromycin per ID recommendations. 12/25/2020. Patient currently requiring BiPAP with IPAP 16 and EPAP of 8 with FiO2 100%. Continue IV steroids of Solu-Medrol 60 mg every 8 hour and remdesivir. Continue to trend inflammatory markers. Continue anticoagulation with Lovenox. Prone position as possible. Continue ceftriaxone and azithromycin per ID recommendations. Prognosis is guarded. 12/26/2020 BG not controlled with glipizide. Start Lantus at bedtime for BG control. Elevated BG likely secondary to IV steroid. Patient currently requiring BiPAP with IPAP 18 and EPAP of 10 with FiO2 100%. Continue IV steroids of Solu-Medrol 60 mg every 8 hour and remdesivir. Continue to trend inflammatory markers. Continue anticoagulation with Lovenox. Prone position as possible. Continue ceftriaxone and azithromycin per ID recommendations. Pro gnosis is guarded. 12/27/2020. Blood glucose is improved but not optimal. Therefore, increase Lant us to 14 units at bedtime. Elevated BG likely secondary to IV steroid. Patient currently requiring BiPAP with IPAP 18 and EPAP of 10 with FiO2 100%. Continue IV steroids of Solu-Medrol 60 mg every 8 hour and remdesivir. Continue to trend inflammatory markers. Continue anticoagulation with Lovenox. Prone position as possible. Continue ceftriaxone and azithromycin per ID recommendations. Pro gnosis is guarded. 12/28/2020; patient's blood sugars are uncontrolled, secondary to noncompliance, partly due to high-dose steroids Patient remains hypoxic on continuous BiPAP Switch to 70/30 Novolin 20 units twice a day adjust as needed Patient's A1c 10.3, diabetic education nutrition education 12/29/2020; patient continues to be hypoxemic requiring continuous BiPAP Worsening D-dimers, CTA negative for PE, venous Doppler negative DVT 12/30/2020; patient continues to require continuous BiPAP Wean as tolerated, patient is critically ill with poor prognosis Rn Liaison recommendations noted and appreciated 12/31/2020; patient is on BiPAP Wean as tolerated, continue nebulizers IV steroids And other supportive care Pulmonary and ID recommendations noted and appreciated 01/01/2021; patient on continuous BiPAP 100% FiO2 Did not tolerate high flow nasal cannula 40 L 01/02/2021; patient briefly tolerated HFNC O2 Try to give Ensure intermittently if possible If unsuccessful will consider TPN 01/03/2021; patient is on high flow oxygen and BiPAP as needed Patient is tolerating nutrition supplements and diet in between Acute kidney injury with creatinine 1.3, hypernatremia Secondary to dehydration, encourage plenty free water 01/04/2021; blood sugars moderate control, increase 70/30 insulin to 34 units twice a day on continuous BiPAP, TPN started per office manager Mild hypotension, fluid boluses, consider History Interval history: I have seen and examined the patient at the bedside Patient's chart and medications reviewed Isolation precautions PPE protocols followed per COVID-19 guidelines Patient remains on continuous BiPAP Mild distress Vital signs reviewed Hospitalist Physical - Constitutional Vitals: Temp Pulse Resp BP Pulse Ox 98.6 F 67 32 H 90/69 94 01/04/21 07:45 01/04/21 08:48 01/04/21 08:48 01/04/21 08:48 01/04/21 08:48 General appearance: Present: mild distress, well-nourished, obese (Morbidly obese), other (On BiPAP) - EENT Eyes: Present: PERRL, EOM intact - Neck Neck: Present: supple, normal ROM - Respiratory Respiratory effort: normal Respiratory: bilateral: diminished, rhonchi, negative: rales, wheezing - Cardiovascular Rhythm: regular Heart Sounds: Present: S1 & S2 - Extremities Extremities: no ischemia, No edema - Abdominal General gastrointestinal: soft, non-tender, non-distended, normal bowel sounds - Integumentary Integumentary: Present: clear, warm - Psychiatric Psychiatric: appropriate mood/affect, cooperative, other (In mild distress) - Neurologic Neurologic: moves all extremities HEART Score - HEART Score Troponin: Troponin T < 0.010 ng/mL (0.00-0.029) 12/20/20 19:27 Results - Labs CBC & Chem 7: 12/27/20 04:25 01/04/21 05:12 Labs: Laboratory Last Values WBC 7.5 K/mm3 (4.5-11.0) 12/27/20 04:25 RBC 4.05 M/mm3 (3.65-5.03) 12/27/20 04:25 Hgb 13.1 gm/dl (10.1-14.3) 12/27/20 04:25 Hct 38.8 % (30.3-42.9) D 12/27/20 04:25 MCV 96 fl (79-97) 12/27/20 04:25 MCH 32 pg (28-32) 12/27/20 04:25 MCHC 34 % (30-34) 12/27/20 04:25 RDW 13.7 % (13.2-15.2) 12/27/20 04:25 Plt Count 230 K/mm3 (140-440) 12/27/20 04:25 Lymph % (Auto) 6.4 % (13.4-35.0) L 12/27/20 04:25 [place] % (Auto) 7.5 % (0.0-7.3) H 12/27/20 04:25 Eos % (Auto) 0.0 % (0.0-4.3) 12/27/20 04:25 Baso % (Auto) 0.2 % (0.0-1.8) 12/27/20 04:25 Lymph # (Auto) 0.5 K/mm3 (1.2-5.4) L 12/27/20 04:25 [place] # (Auto) 0.6 K/mm3 (0.0-0.8) 12/27/20 04:25 Eos # (Auto) 0.0 K/mm3 (0.0-0.4) 12/27/20 04:25 Baso # (Auto) 0.0 K/mm3 (0.0-0.1) 12/27/20 04:25 Add Manual Diff Complete 12/23/20 14:09 Total Counted 100 12/23/20 14:09 Seg Neutrophils % 85.9 % (40.0-70.0) H 12/27/20 04:25 Seg Neuts % (Manual) 87.0 % (40.0-70.0) H 12/23/20 14:09 Band Neutrophils % 4.0 % 12/23/20 14:09 Lymphocytes % (Manual) 3.0 % (13.4-35.0) L 12/23/20 14:09 Reactive Lymphs % (Man) 1.0 % 12/23/20 14:09 Monocytes % (Manual) 5.0 % (0.0-7.3) 12/23/20 14:09 Nucleated RBC % 1.0 % (0.0-0.9) H 12/23/20 14:09 Seg Neutrophils # 6.4 K/mm3 (1.8-7.7) 12/27/20 04:25 Seg Neutrophils # Man 1.6 K/mm3 (1.8-7.7) L 12/23/20 14:09 Band Neutrophils # 0.1 K/mm3 12/23/20 14:09 Lymphocytes # (Manual) 0.1 K/mm3 (1.2-5.4) L 12/23/20 14:09 Abs React Lymphs (Man) 0.0 K/mm3 12/23/20 14:09 Monocytes # (Manual) 0.1 K/mm3 (0.0-0.8) 12/23/20 14:09 Eosinophils # (Manual) 0.0 K/mm3 (0.0-0.4) 12/23/20 14:09 Basophils # (Manual) 0.0 K/mm3 (0.0-0.1) 12/23/20 14:09 Metamyelocytes # 0.0 K/mm3 12/23/20 14:09 Myelocytes # 0.0 K/mm3 12/23/20 14:09 Promyelocytes # 0.0 K/mm3 12/23/20 14:09 Blast Cells # 0.0 K/mm3 12/23/20 14:09 WBC Morphology Not Reportable 12/23/20 14:09 Hypersegmented Neuts Not Reportable 12/23/20 14:09 Hyposegmented Neuts Not Reportable 12/23/20 14:09 Hypogranular Neuts Not Reportable 12/23/20 14:09 Smudge Cells Not Reportable 12/23/20 14:09 Toxic Granulation Not Reportable 12/23/20 14:09 Toxic Vacuolation Not Reportable 12/23/20 14:09 Dohle Bodies Not Reportable 12/23/20 14:09 Pelger-Huet Anomaly Not Reportable 12/23/20 14:09 Jair Rods Not Reportable 12/23/20 14:09 Platelet Estimate Consistent w auto 12/23/20 14:09 Clumped Platelets Not Reportable 12/23/20 14:09 Plt Clumps, EDTA Not Reportable 12/23/20 14:09 Large Platelets Not Reportable 12/23/20 14:09 Giant Platelets Not Reportable 12/23/20 14:09 Platelet Satelliting Not Reportable 12/23/20 14:09 Plt Morphology Comment Not Reportable 12/23/20 14:09 RBC Morphology Normal 12/23/20 14:09 Dimorphic RBCs Not Reportable 12/23/20 14:09 Polychromasia Not Reportable 12/23/20 14:09 Hypochromasia Not Reportable 12/23/20 14:09 Poikilocytosis Not Reportable 12/23/20 14:09 Anisocytosis Not Reportable 12/23/20 14:09 Microcytosis Not Reportable 12/23/20 14:09 Macrocytosis Not Reportable 12/23/20 14:09 Spherocytes Not Reportable 12/23/20 14:09 Pappenheimer Bodies Not Reportable 12/23/20 14:09 Sickle Cells Not Reportable 12/23/20 14:09 Target Cells Not Reportable 12/23/20 14:09 Tear Drop Cells Not Reportable 12/23/20 14:09 Ovalocytes Not Reportable 12/23/20 14:09 Helmet Cells Not Reportable 12/23/20 14:09 [place] Bodies Not Reportable 12/23/20 14:09 [place] Rings Not Reportable 12/23/20 14:09 [place] Cells Not Reportable 12/23/20 14:09 Bite Cells Not Reportable 12/23/20 14:09 Crenated Cell Not Reportable 12/23/20 14:09 Elliptocytes Not Reportable 12/23/20 14:09 Acanthocytes (Spur) Not Reportable 12/23/20 14:09 Rouleaux Not Reportable 12/23/20 14:09 Hemoglobin C Crystals Not Reportable 12/23/20 14:09 Schistocytes Not Reportable 12/23/20 14:09 Malaria parasites Not Reportable 12/23/20 14:09 Giorgi Bodies Not Reportable 12/23/20 14:09 Hem Pathologist Commnt No 12/23/20 14:09 PT 13.1 Sec. (12.2-14.9) 12/21/20 05:50 INR 1.01 (0.87-1.13) 12/21/20 05:50 D-Dimer 1259.33 ng/mlDDU (0-234) H 01/03/21 16:00 ABG pH 7.454 (7.320-7.450) H 12/30/20 18:03 POC ABG pCO2 49.7 mmHg (32.0-48.0) H 12/30/20 18:03 POC ABG pO2 59.0 mmHg (83-108) L 12/30/20 18:03 POC ABG HCO3 34.1 12/30/20 18:03 ABG O2 Saturation 89.9 (0-100) 12/30/20 18:03 POC ABG Base Excess 8.7 12/30/20 18:03 ABG Hemoglobin 13.9 (12.0-17.5) 12/30/20 18:03 ABG Oxyhemoglobin 88.6 (94-98) L 12/30/20 18:03 ABG Methemoglobin 0.3 (0.0-1.5) 12/30/20 18:03 ABG Sodium 146.4 mmol/L (136.0-145.0) H 12/30/20 18:03 ABG Potassium 3.7 mmol/L (3.40-4.50) 12/30/20 18:03 ABG Chloride 105.0 mmol/L (98-107) 12/30/20 18:03 ABG Glucose 252 mg/dL (65-95) H 12/30/20 18:03 Carboxyhemoglobin 1.1 (0.5-1.5) 12/30/20 18:03 FiO2 % 85 12/30/20 18:03 Sodium 147 mmol/L (137-145) H 01/04/21 05:12 Potassium 3.8 mmol/L (3.6-5.0) 01/04/21 05:12 Chloride 105.7 mmol/L (98-107) 01/04/21 05:12 Carbon Dioxide 34 mmol/L (22-30) H 01/04/21 05:12 Anion Gap 11 mmol/L 01/04/21 05:12 BUN 59 mg/dL (7-17) H 01/04/21 05:12 Creatinine 1.2 mg/dL (0.6-1.2) 01/04/21 05:12 Estimated GFR 56 ml/min 01/04/21 05:12 BUN/Creatinine Ratio 49 % 01/04/21 05:12 Glucose 208 mg/dL (65-100) H 01/04/21 05:12 POC Glucose 197 mg/dL (70-105) H 01/04/21 07:36 Hemoglobin A1c 10.3 % (4-6) H 12/21/20 05:50 Lactic Acid 1.40 mmol/L (0.7-2.0) 12/21/20 05:50 Calcium 8.5 mg/dL (8.4-10.2) 01/04/21 05:12 Magnesium 2.60 mg/dL (1.7-2.3) H 01/04/21 05:12 Ferritin 1526.0 ng/mL (10.0-200.0) H 01/03/21 16:00 Total Bilirubin 0.30 mg/dL (0.1-1.2) 12/27/20 04:25 AST 31 units/L (5-40) 12/27/20 04:25 ALT 28 units/L (7-56) 12/27/20 04:25 Alkaline Phosphatase 242 units/L (35-129) H 12/27/20 04:25 Lactate Dehydrogenase 815 units/L (91-180) H 01/03/21 16:00 Troponin T < 0.010 ng/mL (0.00-0.029) 12/20/20 19:27 C-Reactive Protein 0.40 mg/dL (0.00-1.30) 01/03/21 16:00 Total Protein 7.3 g/dL (6.3-8.2) 12/27/20 04:25 Albumin 2.7 g/dL (3.9-5) L 12/27/20 04:25 Albumin/Globulin Ratio 0.6 % 12/27/20 04:25 Procalcitonin 0.07 ng/mL (<0.15) 12/26/20 11:08 Arterial Blood Glucose 252 mg/dL (65-95) H 12/30/20 18:03 Arterial Blood Ionized Calcium 4.5 mg/dL (4.6-5.3) L 12/30/20 18:03 Urine Color Yellow (Yellow) 12/22/20 03:00 Urine Turbidity Clear (Clear) 12/22/20 03:00 Urine pH 5.0 (5.0-7.0) 12/22/20 03:00 Ur Specific [place] 1.019 (1.003-1.030) 12/22/20 03:00 Urine Protein 100 mg/dl mg/dL (Negative) 12/22/20 03:00 Urine Glucose (UA) 50 mg/dL (Negative) 12/22/20 03:00 Urine Ketones Neg mg/dL (Negative) 12/22/20 03:00 Urine Blood Sm (Negative) 12/22/20 03:00 Urine Nitrite Neg (Negative) 12/22/20 03:00 Urine Bilirubin Neg (Negative) 12/22/20 03:00 Urine Urobilinogen 2.0 mg/dL (<2.0) 12/22/20 03:00 Ur Leukocyte Esterase Neg (Negative) 12/22/20 03:00 Urine WBC (Auto) 1.0 /HPF (0.0-6.0) 12/22/20 03:00 Urine RBC (Auto) 1.0 /HPF (0.0-6.0) 12/22/20 03:00 U Epithel Cells (Auto) 3.0 /HPF (0-13.0) 12/22/20 03:00 Urine Bacteria (Auto) 1+ /HPF (Negative) 12/22/20 03:00 Urine Mucus Few /HPF 12/22/20 03:00 Urine Eosinophils None seen (None Seen) 12/22/20 03:00 Urine Creatinine 117.9 mg/dL (0.1-20.0) H 12/22/20 03:00 Urine Sodium 67 mmol/L 12/22/20 03:00 Coronavirus (PCR) Positive (Negative) A 12/21/20 10:28 Hepatitis A IgM Ab Non-reactive (NonReactive) 12/22/20 06:00 Hep Bs Antigen Non-reactive (Negative) 12/22/20 06:00 Hep B Core IgM Ab Non-reactive (NonReactive) 12/22/20 06:00 Hepatitis C Antibody Non-reactive (NonReactive) 12/22/20 06:00 Curtis/IV: Voiding Method Indwelling Catheter Active Medications - Current Medications Current Medications: Generic Name Dose Route Start Last Admin Trade Name Freq PRN Reason Stop Dose Admin Acetaminophen 650 mg 12/20/20 23:15 12/24/20 09:40 Acetaminophen 325 Mg Tab PO 650 mg Q4H PRN Administration Pain MILD(1-3)/Fever >100.5/VARGAS Albuterol 2.5 mg 12/21/20 12:00 Albuterol 2.5 Mg/3 Ml Nebu IH Q4HRT PRN Shortness Of Breath Amlodipine Besylate 10 mg 12/26/20 14:00 01/03/21 09:24 Amlodipine 10 Mg Tab PO 10 mg QDAY TAMEKA Administration Dextrose 50 ml 12/20/20 23:15 Dextrose 50% In Water (25gm) 50 Ml Syringe IV Q30MIN PRN Hypoglycemia Protocol Enoxaparin Sodium 40 mg 12/21/20 22:00 01/03/21 22:20 Enoxaparin 40 Mg/0.4 Ml Inj SUB-Q 40 mg QDAY@2200 TAMEKA Administration Protocol Gabapentin 800 mg 12/21/20 22:00 01/03/21 22:20 Gabapentin 400 Mg Cap PO 800 mg BID TAMEKA Administration Glipizide 10 mg 12/21/20 10:00 01/03/21 18:20 Glipizide 10 Mg Tab PO 10 mg BIDDIAB TAMEKA Administration Guaifenesin 200 mg 12/21/20 16:00 01/02/21 21:10 Guaifenesin 100 Mg/5 Ml Oral Liqd PO 200 mg Q4H PRN Administration Cough Dexmedetomidine HCl 400 mcg/ 104 mls @ 6.952 mls/hr 12/28/20 15:00 01/03/21 22:46 Sodium Chloride IV 0.3 mcg/kg/hr TITRATE TAMEKA 10.429 mls/hr Administration Protocol 0.2 MCG/KG/HR Dextrose 1,000 mls @ 42 mls/hr 01/03/21 12:00 01/04/21 11:29 D5w IV 42 mls/hr DIRECT TAMEKA Administration Methylprednisolone Sodium 250 mls @ 250 mls/hr 01/04/21 11:00 01/04/21 11:29 Succinate 1,000 mg/ Sodium IV 01/06/21 11:59 250 mls/hr Chloride Q24H TAMEKA Administration Insulin Human Isoph/Insulin Regular 30 unit 01/03/21 17:00 01/03/21 18:20 Insulin Nph/Regular 70/30 Inj SUB-Q 30 unit BIDDIAB TAMEKA Administration Insulin Human Lispro 0 unit 01/03/21 14:00 01/04/21 11:29 Insulin Lispro 100 Unit/Ml SUB-Q 3 unit Q4HR TAMEKA Administration Protocol Lorazepam 0.5 mg 12/23/20 20:12 01/03/21 22:22 Lorazepam 2 Mg/Ml Vial IV 0.5 mg Q6H PRN Administration Anxiety Magnesium Hydroxide 30 ml 12/20/20 23:15 Magnesium Hydroxide (Mom) Oral Liqd Udc PO Q4H PRN Constipation Morphine Sulfate 2 mg 12/20/20 23:15 01/03/21 06:38 Morphine 2 Mg/1 Ml Inj IV 2 mg Q4H PRN Administration Pain, Moderate (4-6) Ondansetron HCl 4 mg 12/20/20 23:15 Ondansetron 4 Mg/2 Ml Inj IV Q8H PRN Nausea And Vomiting Oxycodone/Acetaminophen 1 tab 12/21/20 16:00 12/27/20 22:49 Oxycodone /Acetaminophen 5-325mg Tab PO 1 tab Q6H PRN Administration Pain, Moderate (4-6) Sodium Chloride 10 ml 12/21/20 10:00 01/03/21 22:22 Sodium Chloride 0.9% 10 Ml Flush Syringe IV 10 ml BID TAMEKA Administration Sodium Chloride 10 ml 12/20/20 23:15 12/21/20 18:48 Sodium Chloride 0.9% 10 Ml Flush Syringe IV 10 ml PRN PRN Administration LINE FLUSH Sodium Chloride 1 applic 12/22/20 12:00 01/03/21 22:19 [place] Saline Nasal Gel 14.1 Gm NS 1 applic BID TAMEKA Administration Nutrition/Malnutrition Assess - Dietary Evaluation Nutrition/Malnutrition Findings: Nutrition Notes Start: 12/21/20 09:35 Freq: Status: Active Protocol: Document 01/04/21 11:19 (Rec: 01/04/21 11:24 [id number]) Nutrition Notes Need for Assessment generated from: MD Order Initial or Follow up Reassessment Current Diagnosis Diabetes,Hypertension, Respiratory Failure Other Pertinent Diagnosis pneu, COVID 19(+), SOB, Diabetic Neuropathy Current Diet Cardiac/Consistent CHO Labs/Tests Na 147 BUN 59 BG 208 Mg 2.6 Pertinent Medications Insulin Height 5 ft 7 in Weight 129.4 kg [place] Body Weight (kg) 61.36 BMI 44.6 Weight Status Morbidly Obese Subjective/Other Information MD order for PPN. Pt unable to consume meals and only drinking sips of ONS due to SOB for 4 days. Pt remains on almost 24 hour bipap. Will start PPN tomorrow. Percent of energy/protein needs met: Negligible Burn Absent Trauma Absent GI Symptoms None Current % PO Negligible Minimum of two criteria No physical signs of malnutrition #1 Nutrition Diagnosis Inadequate oral intake As Evidenced by Signs and Symptoms pt drinking only sips Diagnosis Progress(for reassessment Worsened documentation) Is patient on ventilator? No Is Patient Ambulatory and/or Out of Bed Yes REE-([facility] or-ambulatory/OOB) [ 2498.119 [id number]] Kcal/Kg value to use for calculation 15 Approximate Energy Requirements Using 1941 kcal/Kg Calculation Used for Recommendations Kcal/kg Additional Notes PRO needs: 77-96g (0.8-1g/kg AdBW 96 kg) Fluid needs: 1 mL/kcal or per MD Nutrition Intervention Change Diet Order: Continue current diet as ordered Add Supplement/Snack (indicate name/kcal [place] BID /protein ) Provides kCal: 850 Provides Protein (gm) 38 Goal #1 Meet at least 75% of energy and protein needs via diet and ONS Anticipated Discharge Needs: Cardiac/Consistent CHO Follow-Up By: 01/05/21 Additional Comments Labs in AM: ADRY, , [place]
[2021-01-04] MEDS ORDERED: INSULIN NPH/REGULAR 70/30 INJ SUB-Q SCH (12:00)
[2021-01-04] MEDS: LORazepam 2 MG/ML VIAL IV PRN (21:22)
[2021-01-04] MEDS: ENOXAPARIN 40 MG/0.4 ML INJ SUB-Q SCH (21:23)
[2021-01-05] MEDS ORDERED: LORazepam 2 MG/ML VIAL IV ONE ×2 (02:18→02:30)
[2021-01-05] MEDS: INSULIN LISPRO 100 UNIT/ML SUB-Q SCH ×6 (02:27→21:41)
[2021-01-05 04:59] LABS: Alanine Aminotransferase 58 units/L (7-56); Albumin 2.9 g/dL (3.9-5); BUN/Creatinine Ratio 55; Bilirubin,Direct 0.2 mg/dL (0-0.2); Blood Urea Nitrogen 55 mg/dL (7-17); Calcium 8.3 mg/dL (8.4-10.2); Hemolysis Index 49
[2021-01-05] MEDS: LORazepam 2 MG/ML VIAL IV PRN ×2 (06:10→12:27)
[2021-01-05] MEDS: INSULIN NPH/REGULAR 70/30 INJ SUB-Q SCH ×2 (07:38→17:53)
[2021-01-05] MEDS: glipiZIDE 10 MG TAB PO SCH (07:51)
--- NOTE | 2021-01-05 08:34 | Progress Note ---
Assessment and Plan 55 y/o female with acute respiratory failure secondary to cOVID 19 with prior history of ILD on a CT in [facility] 01/05/21: Continue bipap therapy for now. Continue stress dose steroids. Hopeful patient will improve but may ultimately require intubation. Very very sick lungs prior to acquiring covid. 01/04/21: No lasix again today. Continue Free water at current IV rate as stated below. Check labs tomorrow. COntinue PPV and attempt to wean FiO2 accordingly. Consider nutrition consult for PPN. Prognosis still remains very guarded. 01/03/21: continue between HFNC and bipap. Will hold on lasix today as patient is getting more hypernatremia and worsening renal function. All secondary to lack of eating and drinking. Ok with starting with D5 at like 42/hr. Guarded prognosis. 01/02/21: Continue to avoid intubation at all costs. Continue high dose steroids. Given concern for ILD, may even need to consider pulse dose steroids but will discuss on rounds tomorrow. Lasix was given last night and yesterday morning. negative 1700 on yesterday. Please check labs in the am as I would like to give lasix again tonight. 01/01/21: Unfortunately, given her high risk for intubation, patient will not be able to eat. Nutrition has been an issue and we will discuss this on rounds. May need PPN. Continue steroids at current dosing. Will give an additional dose of lasix tonight. 12/31/20: will continue steroids today as same dose and frequency. No changes to lasix therapy. Need to keep patient as calm as possible to allow bipap to work to avoid intubation at all costs. Prognosis still remains guarded. 12/30/20: Continue steroids at 60q6. Continue daily lasix. may need to consider BID dosing to help with more volume removal if renal function will permit. Overall prognosis is very very guarded to poor, especially if the patient ends up on the mechanical ventilator. 12/29/20: Will increase steroids to q6 hour dosing to see if this helps. Prognosis is very very guarded. 12/28/20: Continue steroids and lasix, may need to ask renal about BID dosing for a few days to see if this will help. Prone as tolerated during the day and sleep prone at night. 1. Agree with change in steroids to solumedrol 60q8, will continue for now 2. Agree with daily lasix but goal should be daily net negative state. 3. Prone as tolerated during the day and sleep prone at night 4. Guarded prognosis CCT 31 minutes. Subjective Date of service: 01/05/21 Principal diagnosis: COVID-19 Interval history: No acute events. No real change yet but this is just the first dose of steroid. Objective Vital Signs - 12hr 01/04/21 01/04/21 01/04/21 20:45 21:00 22:01 Temperature Pulse Rate 86 84 73 Respiratory 49 H 23 20 Rate Blood Pressure 84/64 148/101 156/94 O2 Sat by Pulse 92 93 83 L Oximetry 01/04/21 01/05/21 01/05/21 23:01 00:00 00:06 Temperature 97.6 F Pulse Rate 76 73 82 Respiratory 20 18 35 H Rate Blood Pressure 109/69 113/76 113/76 O2 Sat by Pulse 91 89 91 Oximetry 01/05/21 01/05/21 01/05/21 01:00 02:01 03:00 Temperature Pulse Rate 72 82 79 Respiratory 17 25 H 19 Rate Blood Pressure 115/84 128/92 95/76 O2 Sat by Pulse 87 88 90 Oximetry 01/05/21 01/05/21 01/05/21 03:50 04:00 05:00 Temperature 97.4 F L Pulse Rate 76 73 72 Respiratory 37 H 18 20 Rate Blood Pressure 95/76 102/84 113/92 O2 Sat by Pulse 89 85 87 Oximetry 01/05/21 01/05/21 01/05/21 06:01 07:01 07:26 Temperature 98.1 F Pulse Rate 79 74 Respiratory 33 H 20 Rate Blood Pressure 164/120 112/74 O2 Sat by Pulse 85 87 Oximetry 01/05/21 01/05/21 08:00 08:01 Temperature Pulse Rate 71 71 Respiratory 23 Rate Blood Pressure 112/74 O2 Sat by Pulse 86 Oximetry Constitutional: no acute distress, alert (obese), other (on BIPAP) Eyes: non-icteric ENT: oropharynx moist Neck: supple Effort: normal Ascultation: Bilateral: clear, diminished breath sounds (anteriorly) Cardiovascular: regular rate and rhythm (no mrg) Gastrointestinal: normoactive bowel sounds, soft, non-tender, non-distended Integumentary: normal Extremities: no cyanosis, no edema, pink and warm Neurologic: normal mental status, non-focal exam Psychiatric: mood appropriate, affect normal CBC and BMP: 01/06/21 14:49 01/06/21 14:49 ABG, PT/INR, D-dimer: ABG ABG pH 7.454 (7.320-7.450) H 12/30/20 18:03 POC ABG pCO2 49.7 mmHg (32.0-48.0) H 12/30/20 18:03 POC ABG pO2 59.0 mmHg (83-108) L 12/30/20 18:03 POC ABG HCO3 34.1 12/30/20 18:03 ABG O2 Saturation 89.9 (0-100) 12/30/20 18:03 PT/INR, D-dimer PT 13.1 Sec. (12.2-14.9) 12/21/20 05:50 INR 1.01 (0.87-1.13) 12/21/20 05:50 D-Dimer 1259.33 ng/mlDDU (0-234) H 01/03/21 16:00 Abnormal lab findings: Abnormal Labs 12/20/20 12/20/20 12/20/20 19:27 19:27 19:27 WBC 2.9 L RBC MCHC Plt Count 116 L Lymph % (Auto) 41.2 H [place] % (Auto) 13.2 H Lymph # (Auto) Seg Neutrophils % Seg Neuts % (Manual) Lymphocytes % (Manual) Nucleated RBC % Seg Neutrophils # 1.3 L Seg Neutrophils # Man Lymphocytes # (Manual) D-Dimer 260.58 H ABG pH POC ABG pCO2 POC ABG pO2 ABG Oxyhemoglobin ABG Sodium ABG Glucose Sodium 135 L Potassium Chloride 96.1 L Carbon Dioxide BUN 23 H Creatinine 1.4 H Glucose 295 H POC Glucose Hemoglobin A1c Calcium 8.3 L Magnesium Ferritin AST 125 H ALT 96 H Alkaline Phosphatase 323 H Lactate Dehydrogenase C-Reactive Protein Total Protein 8.7 H Albumin 3.7 L Arterial Blood Glucose Arterial Blood Ionized Calcium Urine Creatinine Coronavirus (PCR) 12/20/20 12/20/20 12/21/20 19:43 19:43 05:50 WBC RBC MCHC Plt Count Lymph % (Auto) [place] % (Auto) Lymph # (Auto) Seg Neutrophils % Seg Neuts % (Manual) Lymphocytes % (Manual) Nucleated RBC % Seg Neutrophils # Seg Neutrophils # Man Lymphocytes # (Manual) D-Dimer ABG pH POC ABG pCO2 POC ABG pO2 ABG Oxyhemoglobin ABG Sodium ABG Glucose Sodium Potassium Chloride Carbon Dioxide BUN Creatinine Glucose 297 H POC Glucose Hemoglobin A1c 10.3 H Calcium Magnesium Ferritin 1420.0 H AST ALT Alkaline Phosphatase Lactate Dehydrogenase 491 H C-Reactive Protein 5.50 H Total Protein Albumin Arterial Blood Glucose Arterial Blood Ionized Calcium Urine Creatinine Coronavirus (PCR) 12/21/20 12/21/20 12/21/20 05:50 05:50 08:04 WBC 1.6 L* RBC 3.40 L MCHC Plt Count 104 L Lymph % (Auto) [place] % (Auto) Lymph # (Auto) Seg Neutrophils % Seg Neuts % (Manual) 82.0 H Lymphocytes % (Manual) Nucleated RBC % Seg Neutrophils # Seg Neutrophils # Man 1.3 L Lymphocytes # (Manual) 0.3 L D-Dimer ABG pH POC ABG pCO2 POC ABG pO2 ABG Oxyhemoglobin ABG Sodium ABG Glucose Sodium 132 L Potassium 5.7 H D Chloride 95.7 L Carbon Dioxide BUN 33 H Creatinine 1.7 H Glucose 500 H POC Glucose 483 H Hemoglobin A1c Calcium 7.7 L Magnesium Ferritin AST ALT Alkaline Phosphatase Lactate Dehydrogenase C-Reactive Protein Total Protein Albumin Arterial Blood Glucose Arterial Blood Ionized Calcium Urine Creatinine Coronavirus (PCR) 12/21/20 12/21/20 12/21/20 10:28 12:05 16:54 WBC RBC MCHC Plt Count Lymph % (Auto) [place] % (Auto) Lymph # (Auto) Seg Neutrophils % Seg Neuts % (Manual) Lymphocytes % (Manual) Nucleated RBC % Seg Neutrophils # Seg Neutrophils # Man Lymphocytes # (Manual) D-Dimer ABG pH POC ABG pCO2 POC ABG pO2 ABG Oxyhemoglobin ABG Sodium ABG Glucose Sodium Potassium Chloride Carbon Dioxide BUN Creatinine Glucose POC Glucose 482 H 374 H Hemoglobin A1c Calcium Magnesium Ferritin AST ALT Alkaline Phosphatase Lactate Dehydrogenase C-Reactive Protein Total Protein Albumin Arterial Blood Glucose Arterial Blood Ionized Calcium Urine Creatinine Coronavirus (PCR) Positive A 12/21/20 12/21/20 12/22/20 18:24 22:12 03:00 WBC RBC MCHC Plt Count Lymph % (Auto) [place] % (Auto) Lymph # (Auto) Seg Neutrophils % Seg Neuts % (Manual) Lymphocytes % (Manual) Nucleated RBC % Seg Neutrophils # Seg Neutrophils # Man Lymphocytes # (Manual) D-Dimer ABG pH POC ABG pCO2 POC ABG pO2 ABG Oxyhemoglobin ABG Sodium ABG Glucose Sodium 131 L Potassium Chloride 95.2 L Carbon Dioxide BUN 37 H Creatinine 1.4 H Glucose 417 H POC Glucose 358 H Hemoglobin A1c Calcium 7.5 L Magnesium Ferritin AST 82 H ALT 69 H Alkaline Phosphatase 262 H Lactate Dehydrogenase C-Reactive Protein Total Protein Albumin 3.0 L Arterial Blood Glucose Arterial Blood Ionized Calcium Urine Creatinine 117.9 H Coronavirus (PCR) 12/22/20 12/22/20 12/22/20 05:29 08:19 11:18 WBC RBC MCHC Plt Count Lymph % (Auto) [place] % (Auto) Lymph # (Auto) Seg Neutrophils % Seg Neuts % (Manual) Lymphocytes % (Manual) Nucleated RBC % Seg Neutrophils # Seg Neutrophils # Man Lymphocytes # (Manual) D-Dimer ABG pH POC ABG pCO2 POC ABG pO2 ABG Oxyhemoglobin ABG Sodium ABG Glucose Sodium Potassium Chloride Carbon Dioxide BUN 34 H Creatinine 1.3 H Glucose 169 H POC Glucose 136 H 132 H Hemoglobin A1c Calcium 7.5 L Magnesium Ferritin AST 74 H ALT 60 H Alkaline Phosphatase 249 H Lactate Dehydrogenase C-Reactive Protein Total Protein Albumin 3.1 L Arterial Blood Glucose Arterial Blood Ionized Calcium Urine Creatinine Coronavirus (PCR) 12/22/20 12/22/20 12/22/20 14:18 14:18 16:36 WBC RBC MCHC Plt Count Lymph % (Auto) [place] % (Auto) Lymph # (Auto) Seg Neutrophils % Seg Neuts % (Manual) Lymphocytes % (Manual) Nucleated RBC % Seg Neutrophils # Seg Neutrophils # Man Lymphocytes # (Manual) D-Dimer ABG pH POC ABG pCO2 POC ABG pO2 ABG Oxyhemoglobin ABG Sodium ABG Glucose Sodium Potassium Chloride Carbon Dioxide BUN Creatinine Glucose POC Glucose 440 H Hemoglobin A1c Calcium Magnesium Ferritin 1295.0 H AST ALT Alkaline Phosphatase Lactate Dehydrogenase 620 H C-Reactive Protein 2.70 H Total Protein Albumin Arterial Blood Glucose Arterial Blood Ionized Calcium Urine Creatinine Coronavirus (PCR) 12/22/20 12/23/20 12/23/20 21:07 08:09 11:30 WBC RBC MCHC Plt Count Lymph % (Auto) [place] % (Auto) Lymph # (Auto) Seg Neutrophils % Seg Neuts % (Manual) Lymphocytes % (Manual) Nucleated RBC % Seg Neutrophils # Seg Neutrophils # Man Lymphocytes # (Manual) D-Dimer ABG pH POC ABG pCO2 POC ABG pO2 ABG Oxyhemoglobin ABG Sodium ABG Glucose Sodium Potassium Chloride Carbon Dioxide BUN Creatinine Glucose POC Glucose 493 H 156 H 185 H Hemoglobin A1c Calcium Magnesium Ferritin AST ALT Alkaline Phosphatase Lactate Dehydrogenase C-Reactive Protein Total Protein Albumin Arterial Blood Glucose Arterial Blood Ionized Calcium Urine Creatinine Coronavirus (PCR) 12/23/20 12/23/20 12/23/20 14:09 14:09 16:26 WBC 1.8 L* RBC 3.45 L MCHC Plt Count 114 L Lymph % (Auto) [place] % (Auto) Lymph # (Auto) Seg Neutrophils % Seg Neuts % (Manual) 87.0 H Lymphocytes % (Manual) 3.0 L Nucleated RBC % 1.0 H Seg Neutrophils # Seg Neutrophils # Man 1.6 L Lymphocytes # (Manual) 0.1 L D-Dimer ABG pH POC ABG pCO2 POC ABG pO2 ABG Oxyhemoglobin ABG Sodium ABG Glucose Sodium Potassium Chloride Carbon Dioxide BUN 19 H Creatinine Glucose 292 H POC Glucose 351 H Hemoglobin A1c Calcium 7.4 L Magnesium Ferritin AST 71 H ALT Alkaline Phosphatase 264 H Lactate Dehydrogenase C-Reactive Protein Total Protein Albumin 3.0 L Arterial Blood Glucose Arterial Blood Ionized Calcium Urine Creatinine Coronavirus (PCR) 12/23/20 12/24/20 12/24/20 21:11 08:21 11:58 WBC RBC MCHC Plt Count Lymph % (Auto) [place] % (Auto) Lymph # (Auto) Seg Neutrophils % Seg Neuts % (Manual) Lymphocytes % (Manual) Nucleated RBC % Seg Neutrophils # Seg Neutrophils # Man Lymphocytes # (Manual) D-Dimer ABG pH POC ABG pCO2 POC ABG pO2 ABG Oxyhemoglobin ABG Sodium ABG Glucose Sodium Potassium Chloride Carbon Dioxide BUN Creatinine Glucose POC Glucose 288 H 286 H 277 H Hemoglobin A1c Calcium Magnesium Ferritin AST ALT Alkaline Phosphatase Lactate Dehydrogenase C-Reactive Protein Total Protein Albumin Arterial Blood Glucose Arterial Blood Ionized Calcium Urine Creatinine Coronavirus (PCR) 12/24/20 12/24/20 12/24/20 12:29 12:29 16:05 WBC 2.5 L RBC 3.49 L MCHC 35 H Plt Count 132 L Lymph % (Auto) [place] % (Auto) 7.6 H Lymph # (Auto) 0.4 L Seg Neutrophils % 74.7 H Seg Neuts % (Manual) Lymphocytes % (Manual) Nucleated RBC % Seg Neutrophils # Seg Neutrophils # Man Lymphocytes # (Manual) D-Dimer ABG pH POC ABG pCO2 POC ABG pO2 ABG Oxyhemoglobin ABG Sodium ABG Glucose Sodium Potassium Chloride Carbon Dioxide BUN Creatinine Glucose 256 H POC Glucose 282 H Hemoglobin A1c Calcium 7.8 L Magnesium Ferritin AST 50 H ALT Alkaline Phosphatase 262 H Lactate Dehydrogenase C-Reactive Protein Total Protein Albumin 2.8 L Arterial Blood Glucose Arterial Blood Ionized Calcium Urine Creatinine Coronavirus (PCR) 12/24/20 12/25/20 12/25/20 22:01 07:58 11:38 WBC RBC MCHC Plt Count Lymph % (Auto) [place] % (Auto) Lymph # (Auto) Seg Neutrophils % Seg Neuts % (Manual) Lymphocytes % (Manual) Nucleated RBC % Seg Neutrophils # Seg Neutrophils # Man Lymphocytes # (Manual) D-Dimer ABG pH POC ABG pCO2 POC ABG pO2 ABG Oxyhemoglobin ABG Sodium ABG Glucose Sodium Potassium Chloride Carbon Dioxide BUN Creatinine Glucose POC Glucose 366 H 278 H 325 H Hemoglobin A1c Calcium Magnesium Ferritin AST ALT Alkaline Phosphatase Lactate Dehydrogenase C-Reactive Protein Total Protein Albumin Arterial Blood Glucose Arterial Blood Ionized Calcium Urine Creatinine Coronavirus (PCR) 12/25/20 12/25/20 12/26/20 15:47 21:31 04:29 WBC RBC MCHC Plt Count Lymph % (Auto) [place] % (Auto) Lymph # (Auto) Seg Neutrophils % Seg Neuts % (Manual) Lymphocytes % (Manual) Nucleated RBC % Seg Neutrophils # Seg Neutrophils # Man Lymphocytes # (Manual) D-Dimer ABG pH POC ABG pCO2 POC ABG pO2 ABG Oxyhemoglobin ABG Sodium ABG Glucose Sodium Potassium Chloride Carbon Dioxide BUN 22 H Creatinine Glucose 327 H POC Glucose 316 H 339 H Hemoglobin A1c Calcium 7.9 L Magnesium Ferritin AST ALT Alkaline Phosphatase Lactate Dehydrogenase C-Reactive Protein Total Protein Albumin Arterial Blood Glucose Arterial Blood Ionized Calcium Urine Creatinine Coronavirus (PCR) 12/26/20 12/26/20 12/26/20 07:42 11:08 11:08 WBC RBC MCHC Plt Count Lymph % (Auto) [place] % (Auto) Lymph # (Auto) Seg Neutrophils % Seg Neuts % (Manual) Lymphocytes % (Manual) Nucleated RBC % Seg Neutrophils # Seg Neutrophils # Man Lymphocytes # (Manual) D-Dimer 1954.54 H ABG pH POC ABG pCO2 POC ABG pO2 ABG Oxyhemoglobin ABG Sodium ABG Glucose Sodium Potassium Chloride Carbon Dioxide BUN Creatinine Glucose POC Glucose 353 H Hemoglobin A1c Calcium Magnesium Ferritin 932.1 H AST ALT Alkaline Phosphatase Lactate Dehydrogenase C-Reactive Protein Total Protein Albumin Arterial Blood Glucose Arterial Blood Ionized Calcium Urine Creatinine Coronavirus (PCR) 12/26/20 12/26/20 12/26/20 11:08 11:57 16:40 WBC RBC MCHC Plt Count Lymph % (Auto) [place] % (Auto) Lymph # (Auto) Seg Neutrophils % Seg Neuts % (Manual) Lymphocytes % (Manual) Nucleated RBC % Seg Neutrophils # Seg Neutrophils # Man Lymphocytes # (Manual) D-Dimer ABG pH POC ABG pCO2 POC ABG pO2 ABG Oxyhemoglobin ABG Sodium ABG Glucose Sodium Potassium Chloride Carbon Dioxide BUN Creatinine Glucose POC Glucose 318 H 352 H Hemoglobin A1c Calcium Magnesium Ferritin AST ALT Alkaline Phosphatase Lactate Dehydrogenase 698 H C-Reactive Protein 3.70 H Total Protein Albumin Arterial Blood Glucose Arterial Blood Ionized Calcium Urine Creatinine Coronavirus (PCR) 12/26/20 12/27/20 12/27/20 21:29 04:25 04:25 WBC RBC MCHC Plt Count Lymph % (Auto) 6.4 L [place] % (Auto) 7.5 H Lymph # (Auto) 0.5 L Seg Neutrophils % 85.9 H Seg Neuts % (Manual) Lymphocytes % (Manual) Nucleated RBC % Seg Neutrophils # Seg Neutrophils # Man Lymphocytes # (Manual) D-Dimer ABG pH POC ABG pCO2 POC ABG pO2 ABG Oxyhemoglobin ABG Sodium ABG Glucose Sodium Potassium 5.4 H D Chloride Carbon Dioxide BUN 30 H Creatinine Glucose 273 H POC Glucose 376 H Hemoglobin A1c Calcium 8.1 L Magnesium Ferritin AST ALT Alkaline Phosphatase 242 H Lactate Dehydrogenase C-Reactive Protein Total Protein Albumin 2.7 L Arterial Blood Glucose Arterial Blood Ionized Calcium Urine Creatinine Coronavirus (PCR) 12/27/20 12/27/20 12/27/20 08:05 11:39 17:28 WBC RBC MCHC Plt Count Lymph % (Auto) [place] % (Auto) Lymph # (Auto) Seg Neutrophils % Seg Neuts % (Manual) Lymphocytes % (Manual) Nucleated RBC % Seg Neutrophils # Seg Neutrophils # Man Lymphocytes # (Manual) D-Dimer ABG pH POC ABG pCO2 POC ABG pO2 ABG Oxyhemoglobin ABG Sodium ABG Glucose Sodium Potassium Chloride Carbon Dioxide BUN Creatinine Glucose POC Glucose 287 H 359 H 490 H Hemoglobin A1c Calcium Magnesium Ferritin AST ALT Alkaline Phosphatase Lactate Dehydrogenase C-Reactive Protein Total Protein Albumin Arterial Blood Glucose Arterial Blood Ionized Calcium Urine Creatinine Coronavirus (PCR) 12/27/20 12/27/20 12/28/20 21:43 21:53 04:41 WBC RBC MCHC Plt Count Lymph % (Auto) [place] % (Auto) Lymph # (Auto) Seg Neutrophils % Seg Neuts % (Manual) Lymphocytes % (Manual) Nucleated RBC % Seg Neutrophils # Seg Neutrophils # Man Lymphocytes # (Manual) D-Dimer ABG pH POC ABG pCO2 POC ABG pO2 ABG Oxyhemoglobin ABG Sodium ABG Glucose Sodium Potassium Chloride Carbon Dioxide 31 H BUN 35 H Creatinine Glucose 328 H POC Glucose 503 H 438 H Hemoglobin A1c Calcium Magnesium Ferritin AST ALT Alkaline Phosphatase Lactate Dehydrogenase C-Reactive Protein Total Protein Albumin Arterial Blood Glucose Arterial Blood Ionized Calcium Urine Creatinine Coronavirus (PCR) 12/28/20 12/28/20 12/28/20 07:58 11:40 15:43 WBC RBC MCHC Plt Count Lymph % (Auto) [place] % (Auto) Lymph # (Auto) Seg Neutrophils % Seg Neuts % (Manual) Lymphocytes % (Manual) Nucleated RBC % Seg Neutrophils # Seg Neutrophils # Man Lymphocytes # (Manual) D-Dimer 4626.15 H ABG pH POC ABG pCO2 POC ABG pO2 ABG Oxyhemoglobin ABG Sodium ABG Glucose Sodium Potassium Chloride Carbon Dioxide BUN Creatinine Glucose POC Glucose 321 H 455 H Hemoglobin A1c Calcium Magnesium Ferritin AST ALT Alkaline Phosphatase Lactate Dehydrogenase C-Reactive Protein Total Protein Albumin Arterial Blood Glucose Arterial Blood Ionized Calcium Urine Creatinine Coronavirus (PCR) 12/28/20 12/28/20 12/28/20 15:43 15:43 17:10 WBC RBC MCHC Plt Count Lymph % (Auto) [place] % (Auto) Lymph # (Auto) Seg Neutrophils % Seg Neuts % (Manual) Lymphocytes % (Manual) Nucleated RBC % Seg Neutrophils # Seg Neutrophils # Man Lymphocytes # (Manual) D-Dimer ABG pH POC ABG pCO2 POC ABG pO2 ABG Oxyhemoglobin ABG Sodium ABG Glucose Sodium Potassium Chloride Carbon Dioxide BUN Creatinine Glucose POC Glucose 291 H Hemoglobin A1c Calcium Magnesium Ferritin 1030.0 H AST ALT Alkaline Phosphatase Lactate Dehydrogenase 838 H C-Reactive Protein Total Protein Albumin Arterial Blood Glucose Arterial Blood Ionized Calcium Urine Creatinine Coronavirus (PCR) 12/28/20 12/29/20 12/29/20 21:42 05:12 08:25 WBC RBC MCHC Plt Count Lymph % (Auto) [place] % (Auto) Lymph # (Auto) Seg Neutrophils % Seg Neuts % (Manual) Lymphocytes % (Manual) Nucleated RBC % Seg Neutrophils # Seg Neutrophils # Man Lymphocytes # (Manual) D-Dimer ABG pH POC ABG pCO2 POC ABG pO2 ABG Oxyhemoglobin ABG Sodium ABG Glucose Sodium 146 H Potassium Chloride Carbon Dioxide 32 H BUN 34 H Creatinine Glucose 126 H POC Glucose 240 H 176 H Hemoglobin A1c Calcium Magnesium Ferritin AST ALT Alkaline Phosphatase Lactate Dehydrogenase C-Reactive Protein Total Protein Albumin Arterial Blood Glucose Arterial Blood Ionized Calcium Urine Creatinine Coronavirus (PCR) 12/29/20 12/29/20 12/29/20 11:24 16:49 21:39 WBC RBC MCHC Plt Count Lymph % (Auto) [place] % (Auto) Lymph # (Auto) Seg Neutrophils % Seg Neuts % (Manual) Lymphocytes % (Manual) Nucleated RBC % Seg Neutrophils # Seg Neutrophils # Man Lymphocytes # (Manual) D-Dimer ABG pH POC ABG pCO2 POC ABG pO2 ABG Oxyhemoglobin ABG Sodium ABG Glucose Sodium Potassium Chloride Carbon Dioxide BUN Creatinine Glucose POC Glucose 209 H 226 H 169 H Hemoglobin A1c Calcium Magnesium Ferritin AST ALT Alkaline Phosphatase Lactate Dehydrogenase C-Reactive Protein Total Protein Albumin Arterial Blood Glucose Arterial Blood Ionized Calcium Urine Creatinine Coronavirus (PCR) 12/30/20 12/30/20 12/30/20 07:34 12:17 16:29 WBC RBC MCHC Plt Count Lymph % (Auto) [place] % (Auto) Lymph # (Auto) Seg Neutrophils % Seg Neuts % (Manual) Lymphocytes % (Manual) Nucleated RBC % Seg Neutrophils # Seg Neutrophils # Man Lymphocytes # (Manual) D-Dimer ABG pH POC ABG pCO2 POC ABG pO2 ABG Oxyhemoglobin ABG Sodium ABG Glucose Sodium Potassium Chloride Carbon Dioxide BUN Creatinine Glucose POC Glucose 206 H 261 H 229 H Hemoglobin A1c Calcium Magnesium Ferritin AST ALT Alkaline Phosphatase Lactate Dehydrogenase C-Reactive Protein Total Protein Albumin Arterial Blood Glucose Arterial Blood Ionized Calcium Urine Creatinine Coronavirus (PCR) 12/30/20 12/30/20 12/31/20 18:03 23:13 08:43 WBC RBC MCHC Plt Count Lymph % (Auto) [place] % (Auto) Lymph # (Auto) Seg Neutrophils % Seg Neuts % (Manual) Lymphocytes % (Manual) Nucleated RBC % Seg Neutrophils # Seg Neutrophils # Man Lymphocytes # (Manual) D-Dimer ABG pH 7.454 H POC ABG pCO2 49.7 H POC ABG pO2 59.0 L ABG Oxyhemoglobin 88.6 L ABG Sodium 146.4 H ABG Glucose 252 H Sodium Potassium Chloride Carbon Dioxide BUN Creatinine Glucose POC Glucose 188 H 191 H Hemoglobin A1c Calcium Magnesium Ferritin AST ALT Alkaline Phosphatase Lactate Dehydrogenase C-Reactive Protein Total Protein Albumin Arterial Blood Glucose 252 H Arterial Blood Ionized Calcium 4.5 L Urine Creatinine Coronavirus (PCR) 12/31/20 12/31/20 12/31/20 11:57 16:57 21:37 WBC RBC MCHC Plt Count Lymph % (Auto) [place] % (Auto) Lymph # (Auto) Seg Neutrophils % Seg Neuts % (Manual) Lymphocytes % (Manual) Nucleated RBC % Seg Neutrophils # Seg Neutrophils # Man Lymphocytes # (Manual) D-Dimer ABG pH POC ABG pCO2 POC ABG pO2 ABG Oxyhemoglobin ABG Sodium ABG Glucose Sodium Potassium Chloride Carbon Dioxide BUN Creatinine Glucose POC Glucose 185 H 171 H 136 H Hemoglobin A1c Calcium Magnesium Ferritin AST ALT Alkaline Phosphatase Lactate Dehydrogenase C-Reactive Protein Total Protein Albumin Arterial Blood Glucose Arterial Blood Ionized Calcium Urine Creatinine Coronavirus (PCR) 01/01/21 01/01/21 01/01/21 08:03 11:55 17:06 WBC RBC MCHC Plt Count Lymph % (Auto) [place] % (Auto) Lymph # (Auto) Seg Neutrophils % Seg Neuts % (Manual) Lymphocytes % (Manual) Nucleated RBC % Seg Neutrophils # Seg Neutrophils # Man Lymphocytes # (Manual) D-Dimer ABG pH POC ABG pCO2 POC ABG pO2 ABG Oxyhemoglobin ABG Sodium ABG Glucose Sodium Potassium Chloride Carbon Dioxide BUN Creatinine Glucose POC Glucose 160 H 155 H 193 H Hemoglobin A1c Calcium Magnesium Ferritin AST ALT Alkaline Phosphatase Lactate Dehydrogenase C-Reactive Protein Total Protein Albumin Arterial Blood Glucose Arterial Blood Ionized Calcium Urine Creatinine Coronavirus (PCR) 01/01/21 01/02/21 01/02/21 22:20 07:22 11:54 WBC RBC MCHC Plt Count Lymph % (Auto) [place] % (Auto) Lymph # (Auto) Seg Neutrophils % Seg Neuts % (Manual) Lymphocytes % (Manual) Nucleated RBC % Seg Neutrophils # Seg Neutrophils # Man Lymphocytes # (Manual) D-Dimer ABG pH POC ABG pCO2 POC ABG pO2 ABG Oxyhemoglobin ABG Sodium ABG Glucose Sodium Potassium Chloride Carbon Dioxide BUN Creatinine Glucose POC Glucose 316 H 274 H 307 H Hemoglobin A1c Calcium Magnesium Ferritin AST ALT Alkaline Phosphatase Lactate Dehydrogenase C-Reactive Protein Total Protein Albumin Arterial Blood Glucose Arterial Blood Ionized Calcium Urine Creatinine Coronavirus (PCR) 01/02/21 01/02/21 01/03/21 16:00 21:20 06:48 WBC RBC MCHC Plt Count Lymph % (Auto) [place] % (Auto) Lymph # (Auto) Seg Neutrophils % Seg Neuts % (Manual) Lymphocytes % (Manual) Nucleated RBC % Seg Neutrophils # Seg Neutrophils # Man Lymphocytes # (Manual) D-Dimer ABG pH POC ABG pCO2 POC ABG pO2 ABG Oxyhemoglobin ABG Sodium ABG Glucose Sodium 152 H Potassium Chloride 108.8 H Carbon Dioxide 32 H BUN 64 H Creatinine 1.3 H Glucose 180 H POC Glucose 303 H 263 H Hemoglobin A1c Calcium Magnesium Ferritin AST ALT Alkaline Phosphatase Lactate Dehydrogenase C-Reactive Protein Total Protein Albumin Arterial Blood Glucose Arterial Blood Ionized Calcium Urine Creatinine Coronavirus (PCR) 01/03/21 01/03/21 01/03/21 08:28 11:44 13:59 WBC RBC MCHC Plt Count Lymph % (Auto) [place] % (Auto) Lymph # (Auto) Seg Neutrophils % Seg Neuts % (Manual) Lymphocytes % (Manual) Nucleated RBC % Seg Neutrophils # Seg Neutrophils # Man Lymphocytes # (Manual) D-Dimer ABG pH POC ABG pCO2 POC ABG pO2 ABG Oxyhemoglobin ABG Sodium ABG Glucose Sodium Potassium Chloride Carbon Dioxide BUN Creatinine Glucose POC Glucose 203 H 339 H 362 H Hemoglobin A1c Calcium Magnesium Ferritin AST ALT Alkaline Phosphatase Lactate Dehydrogenase C-Reactive Protein Total Protein Albumin Arterial Blood Glucose Arterial Blood Ionized Calcium Urine Creatinine Coronavirus (PCR) 01/03/21 01/03/21 01/03/21 16:00 16:00 16:00 WBC RBC MCHC Plt Count Lymph % (Auto) [place] % (Auto) Lymph # (Auto) Seg Neutrophils % Seg Neuts % (Manual) Lymphocytes % (Manual) Nucleated RBC % Seg Neutrophils # Seg Neutrophils # Man Lymphocytes # (Manual) D-Dimer 1259.33 H ABG pH POC ABG pCO2 POC ABG pO2 ABG Oxyhemoglobin ABG Sodium ABG Glucose Sodium Potassium Chloride Carbon Dioxide BUN Creatinine Glucose POC Glucose Hemoglobin A1c Calcium Magnesium Ferritin 1526.0 H AST ALT Alkaline Phosphatase Lactate Dehydrogenase 815 H C-Reactive Protein Total Protein Albumin Arterial Blood Glucose Arterial Blood Ionized Calcium Urine Creatinine Coronavirus (PCR) 01/03/21 01/03/21 01/04/21 18:13 21:23 01:46 WBC RBC MCHC Plt Count Lymph % (Auto) [place] % (Auto) Lymph # (Auto) Seg Neutrophils % Seg Neuts % (Manual) Lymphocytes % (Manual) Nucleated RBC % Seg Neutrophils # Seg Neutrophils # Man Lymphocytes # (Manual) D-Dimer ABG pH POC ABG pCO2 POC ABG pO2 ABG Oxyhemoglobin ABG Sodium ABG Glucose Sodium Potassium Chloride Carbon Dioxide BUN Creatinine Glucose POC Glucose 349 H 312 H 264 H Hemoglobin A1c Calcium Magnesium Ferritin AST ALT Alkaline Phosphatase Lactate Dehydrogenase C-Reactive Protein Total Protein Albumin Arterial Blood Glucose Arterial Blood Ionized Calcium Urine Creatinine Coronavirus (PCR) 01/04/21 01/04/21 01/04/21 05:12 05:35 07:36 WBC RBC MCHC Plt Count Lymph % (Auto) [place] % (Auto) Lymph # (Auto) Seg Neutrophils % Seg Neuts % (Manual) Lymphocytes % (Manual) Nucleated RBC % Seg Neutrophils # Seg Neutrophils # Man Lymphocytes # (Manual) D-Dimer ABG pH POC ABG pCO2 POC ABG pO2 ABG Oxyhemoglobin ABG Sodium ABG Glucose Sodium 147 H Potassium Chloride Carbon Dioxide 34 H BUN 59 H Creatinine Glucose 208 H POC Glucose 193 H 197 H Hemoglobin A1c Calcium Magnesium 2.60 H Ferritin AST ALT Alkaline Phosphatase Lactate Dehydrogenase C-Reactive Protein Total Protein Albumin Arterial Blood Glucose Arterial Blood Ionized Calcium Urine Creatinine Coronavirus (PCR) 01/04/21 01/04/21 01/04/21 11:00 14:10 18:06 WBC RBC MCHC Plt Count Lymph % (Auto) [place] % (Auto) Lymph # (Auto) Seg Neutrophils % Seg Neuts % (Manual) Lymphocytes % (Manual) Nucleated RBC % Seg Neutrophils # Seg Neutrophils # Man Lymphocytes # (Manual) D-Dimer ABG pH POC ABG pCO2 POC ABG pO2 ABG Oxyhemoglobin ABG Sodium ABG Glucose Sodium Potassium Chloride Carbon Dioxide BUN Creatinine Glucose POC Glucose 153 H 173 H 194 H Hemoglobin A1c Calcium Magnesium Ferritin AST ALT Alkaline Phosphatase Lactate Dehydrogenase C-Reactive Protein Total Protein Albumin Arterial Blood Glucose Arterial Blood Ionized Calcium Urine Creatinine Coronavirus (PCR) 01/04/21 01/05/2121 21:36 01:38 04:09 WBC RBC MCHC Plt Count Lymph % (Auto) [place] % (Auto) Lymph # (Auto) Seg Neutrophils % Seg Neuts % (Manual) Lymphocytes % (Manual) Nucleated RBC % Seg Neutrophils # Seg Neutrophils # Man Lymphocytes # (Manual) D-Dimer ABG pH POC ABG pCO2 POC ABG pO2 ABG Oxyhemoglobin ABG Sodium ABG Glucose Sodium 146 H Potassium Chloride Carbon Dioxide BUN 55 H Creatinine Glucose 241 H POC Glucose 232 H 232 H Hemoglobin A1c Calcium 8.3 L Magnesium 2.70 H Ferritin AST ALT 58 H Alkaline Phosphatase 177 H Lactate Dehydrogenase C-Reactive Protein Total Protein Albumin 2.9 L Arterial Blood Glucose Arterial Blood Ionized Calcium Urine Creatinine Coronavirus (PCR)
--- NOTE | 2021-01-05 08:54 | Progress Note ---
Assessment and Plan Assessment and plan: Patient is on continuous BiPAP, severely hypoxemic, On pulse dose steroids for possible ILD, received 1 dose yesterday total 3 doses per pulmonary On TPN as patient is not able to take oral due to continuous BiPAP --COVID-19 test positive on 12/21/2020 --Acute hypoxic respiratory failure; Continuous BiPAP, unable to tolerate high flow nasal cannula oxygen No improvement may need intubation Due to severe COVID-19 infection,h/o ILD Obesity hypoventilation syndrome Wean oxygen as tolerated, prone positioning encouraged --History of interstitial lung disease[ILD]; on CT scan at [facility] Pulmonary started pulse dose steroids, received 1 dose yesterday[total 3 doses] There is a risk of severe hyperglycemia, insulin drip as needed And manage the blood sugars appropriately --Sepsis due to COVID-19 pneumonia Procalcitonin low, no need for antibiotics --Severe, COVID-19 infection;Guarded prognosis Completed remdesivir Received Tocilizumab Continue IV steroids per pulmonary Monitor inflammatory markers Prone positioning as tolerated Home oxygen evaluation prior to discharge --Elevated D-dimers; due to COVID-19 Negative PE, negative DVT --Hyponatremia; dehydration, poor oral intake Advised plenty free water as tolerated --Acute kidney injury; vasomotor nephropathy Secondary to dehydration, gentle hydration, free water as needed --Diabetes mellitus type 2; uncontrolled,A1c 10.3 Moderate control, Accu-Chek sliding scale coverage ADA diet Increase 7030 to 34 units subcu twice a day Diabetic education,diet education when patient is more stable --Morbid obesity; BMI 46.2 Patient needs weight reduction when medically stable --OHS/JERMAINE; due to morbid obesity Patient needs outpatient sleep study to rule out JERMAINE CPAP/BiPAP at night and as needed --Elevated LFTs probably Covid related; Present on admission, resolved . --DVT prophylaxis; Lovenox Closely monitor the patient and adjust the management as needed Data Processing Specialist recommendations noted and appreciated Plan of care reviewed with the patient and her nurse Patient is critically ill with guarded prognosis Patient and family aware The high probability of a clinically significant, sudden or life threatening det erioration of the [multi] system(s) required my full and direct attention, intervention and personal management. The aggregate critical care time was [45] minutes. This time is in addition to time spent performing reported procedures but includes the following: [x] Data Review and interpretation [x] Patient assessment and monitoring of vital signs [x] Documentation [x] Medication orders and management Brief history and daily patient care; Morbidly obese 55 y/o -[place] female patient past medical history of ILD on CT scan[per [facility] records] was admitted with worsening shortness of breath noted to have severe COVID-19 pneumonia. With acute hypoxic respiratory failure, high flow nasal oxygen and BiPAP dependent. ID pulmonary following 12/21/2020. Follow-up COVID-19 testing. Continue to trend inflammatory markers. Continue dexamethasone. ID and pulmonary consultation pending. Patient currently with 6 L/min O2 FiO2 44%. 12/22/2020. COVID-19 testing found to be positive. Continue to trend inflammatory markers. Continue dexamethasone. Patient requiring more oxygen with high flow nasal cannula 30 L/min and FiO2 100%. ID and pulmonary following. 12/23/2020. Patient with increasing oxygen requirements with high flow nasal cannula 40 L/min with FiO2 100%. Continue dexamethasone per ID recommendations. We will transfer to IM for closer monitoring. 12/24/2020. Patient was transferred to IM for closer monitoring yesterday. Patient currently requiring BiPAP with IPAP 16 and EPAP of 8 with FiO2 100%. Continue dexamethasone and remdesivir. Continue to trend inflammatory markers. Continue anticoagulation. Prone position as possible. Continue ceftriaxone and azithromycin per ID recommendations. 12/25/2020. Patient currently requiring BiPAP with IPAP 16 and EPAP of 8 with FiO2 100%. Continue IV steroids of Solu-Medrol 60 mg every 8 hour and remdesivir. Continue to trend inflammatory markers. Continue anticoagulation with Lovenox. Prone position as possible. Continue ceftriaxone and azithromycin per ID recommendations. Prognosis is guarded. 12/26/2020 BG not controlled with glipizide. Start Lantus at bedtime for BG control. Elevated BG likely secondary to IV steroid. Patient currently requiring BiPAP with IPAP 18 and EPAP of 10 with FiO2 100%. Continue IV steroids of Solu-Medrol 60 mg every 8 hour and remdesivir. Continue to trend inflammatory markers. Continue anticoagulation with Lovenox. Prone position as possible. Continue ceftriaxone and azithromycin per ID recommendations. Prognosis is guarded. 12/27/2020. Blood glucose is improved but not optimal. Therefore, increase Lantus to 14 units at bedtime. Elevated BG likely secondary to IV steroid. Patient currently requiring BiPAP with IPAP 18 and EPAP of 10 with FiO2 100%. Continue IV steroids of Solu-Medrol 60 mg every 8 hour and remdesivir. Continue to trend inflammatory markers. Continue anticoagulation with Lovenox. Prone position as possible. Continue ceftriaxone and azithromycin per ID recommendations. Prognosis is guarded. 12/28/2020; patient's blood sugars are uncontrolled, secondary to noncompliance, partly due to high-dose steroids Patient remains hypoxic on continuous BiPAP Switch to 70/30 Novolin 20 units twice a day adjust as needed Patient's A1c 10.3, diabetic education nutrition education 12/29/2020; patient continues to be hypoxemic requiring continuous BiPAP Worsening D-dimers, CTA negative for PE, venous Doppler negative DVT 12/30/2020; patient continues to require continuous BiPAP Wean as tolerated, patient is critically ill with poor prognosis Data Processing Specialist recommendations noted and appreciated 12/31/2020; patient is on BiPAP Wean as tolerated, continue nebulizers IV steroids And other supportive care Pulmonary and ID recommendations noted and appreciated 01/01/2021; patient on continuous BiPAP 100% FiO2 Did not tolerate high flow nasal cannula 40 L 01/02/2021; patient briefly tolerated HFNC O2 Try to give Ensure intermittently if possible If unsuccessful will consider TPN 01/03/2021; patient is on high flow oxygen and BiPAP as needed Patient is tolerating nutrition supplements and diet in between Acute kidney injury with creatinine 1.3, hypernatremia Secondary to dehydration, encourage plenty free water 01/04/2021; blood sugars moderate control, increase 70/30 insulin to 34 units twice a day on continuous BiPAP, TPN started per manager animal Mild hypotension, fluid boluses, consider 01/05/2021; patient is on continuous BiPAP In severe respiratory distress Started on pulse dose steroids second dose today Closely monitor History Interval history: I have seen and examined the patient in ICU this morning Isolation precautions and PPE protocols followed Patient on continuous BiPAP, severe distress Pulse steroids started per pulmonary Vital signs noted Hospitalist Physical - Constitutional Vitals: Temp Pulse Resp BP Pulse Ox 98.1 F 71 23 112/74 86 01/05/21 07:26 01/05/21 08:01 01/05/21 08:01 01/05/21 08:01 01/05/21 08:01 General appearance: Present: mild distress, well-nourished, obese (Morbidly obese), other (On BiPAP) - EENT Eyes: Present: PERRL, EOM intact - Neck Neck: Present: supple, normal ROM - Respiratory Respiratory effort: labored Respiratory: bilateral: diminished, rhonchi, negative: rales, wheezing - Cardiovascular Rhythm: regular Heart Sounds: Present: S1 & S2 - Extremities Extremities: no ischemia, abnormal (Obese) Extremity abnormal: edema - Abdominal General gastrointestinal: soft, non-tender, non-distended, normal bowel sounds - Integumentary Integumentary: Present: clear, warm - Psychiatric Psychiatric: appropriate mood/affect, cooperative - Neurologic Neurologic: CNII-XII intact, moves all extremities HEART Score - HEART Score Troponin: Troponin T < 0.010 ng/mL (0.00-0.029) 12/20/20 19:27 Results - Labs CBC & Chem 7: 12/27/20 04:25 01/05/21 04:09 Labs: Laboratory Last Values WBC 7.5 K/mm3 (4.5-11.0) 12/27/20 04:25 RBC 4.05 M/mm3 (3.65-5.03) 12/27/20 04:25 Hgb 13.1 gm/dl (10.1-14.3) 12/27/20 04:25 Hct 38.8 % (30.3-42.9) D 12/27/20 04:25 MCV 96 fl (79-97) 12/27/20 04:25 MCH 32 pg (28-32) 12/27/20 04:25 MCHC 34 % (30-34) 12/27/20 04:25 RDW 13.7 % (13.2-15.2) 12/27/20 04:25 Plt Count 230 K/mm3 (140-440) 12/27/20 04:25 Lymph % (Auto) 6.4 % (13.4-35.0) L 12/27/20 04:25 [place] % (Auto) 7.5 % (0.0-7.3) H 12/27/20 04:25 Eos % (Auto) 0.0 % (0.0-4.3) 12/27/20 04:25 Baso % (Auto) 0.2 % (0.0-1.8) 12/27/20 04:25 Lymph # (Auto) 0.5 K/mm3 (1.2-5.4) L 12/27/20 04:25 [place] # (Auto) 0.6 K/mm3 (0.0-0.8) 12/27/20 04:25 Eos # (Auto) 0.0 K/mm3 (0.0-0.4) 12/27/20 04:25 Baso # (Auto) 0.0 K/mm3 (0.0-0.1) 12/27/20 04:25 Add Manual Diff Complete 12/23/20 14:09 Total Counted 100 12/23/20 14:09 Seg Neutrophils % 85.9 % (40.0-70.0) H 12/27/20 04:25 Seg Neuts % (Manual) 87.0 % (40.0-70.0) H 12/23/20 14:09 Band Neutrophils % 4.0 % 12/23/20 14:09 Lymphocytes % (Manual) 3.0 % (13.4-35.0) L 12/23/20 14:09 Reactive Lymphs % (Man) 1.0 % 12/23/20 14:09 Monocytes % (Manual) 5.0 % (0.0-7.3) 12/23/20 14:09 Nucleated RBC % 1.0 % (0.0-0.9) H 12/23/20 14:09 Seg Neutrophils # 6.4 K/mm3 (1.8-7.7) 12/27/20 04:25 Seg Neutrophils # Man 1.6 K/mm3 (1.8-7.7) L 12/23/20 14:09 Band Neutrophils # 0.1 K/mm3 12/23/20 14:09 Lymphocytes # (Manual) 0.1 K/mm3 (1.2-5.4) L 12/23/20 14:09 Abs React Lymphs (Man) 0.0 K/mm3 12/23/20 14:09 Monocytes # (Manual) 0.1 K/mm3 (0.0-0.8) 12/23/20 14:09 Eosinophils # (Manual) 0.0 K/mm3 (0.0-0.4) 12/23/20 14:09 Basophils # (Manual) 0.0 K/mm3 (0.0-0.1) 12/23/20 14:09 Metamyelocytes # 0.0 K/mm3 12/23/20 14:09 Myelocytes # 0.0 K/mm3 12/23/20 14:09 Promyelocytes # 0.0 K/mm3 12/23/20 14:09 Blast Cells # 0.0 K/mm3 12/23/20 14:09 WBC Morphology Not Reportable 12/23/20 14:09 Hypersegmented Neuts Not Reportable 12/23/20 14:09 Hyposegmented Neuts Not Reportable 12/23/20 14:09 Hypogranular Neuts Not Reportable 12/23/20 14:09 Smudge Cells Not Reportable 12/23/20 14:09 Toxic Granulation Not Reportable 12/23/20 14:09 Toxic Vacuolation Not Reportable 12/23/20 14:09 Dohle Bodies Not Reportable 12/23/20 14:09 Pelger-Huet Anomaly Not Reportable 12/23/20 14:09 Jair Rods Not Reportable 12/23/20 14:09 Platelet Estimate Consistent w auto 12/23/20 14:09 Clumped Platelets Not Reportable 12/23/20 14:09 Plt Clumps, EDTA Not Reportable 12/23/20 14:09 Large Platelets Not Reportable 12/23/20 14:09 Giant Platelets Not Reportable 12/23/20 14:09 Platelet Satelliting Not Reportable 12/23/20 14:09 Plt Morphology Comment Not Reportable 12/23/20 14:09 RBC Morphology Normal 12/23/20 14:09 Dimorphic RBCs Not Reportable 12/23/20 14:09 Polychromasia Not Reportable 12/23/20 14:09 Hypochromasia Not Reportable 12/23/20 14:09 Poikilocytosis Not Reportable 12/23/20 14:09 Anisocytosis Not Reportable 12/23/20 14:09 Microcytosis Not Reportable 12/23/20 14:09 Macrocytosis Not Reportable 12/23/20 14:09 Spherocytes Not Reportable 12/23/20 14:09 Pappenheimer Bodies Not Reportable 12/23/20 14:09 Sickle Cells Not Reportable 12/23/20 14:09 Target Cells Not Reportable 12/23/20 14:09 Tear Drop Cells Not Reportable 12/23/20 14:09 Ovalocytes Not Reportable 12/23/20 14:09 Helmet Cells Not Reportable 12/23/20 14:09 [place] Bodies Not Reportable 12/23/20 14:09 [place] Rings Not Reportable 12/23/20 14:09 Ale Cells Not Reportable 12/23/20 14:09 Bite Cells Not Reportable 12/23/20 14:09 Crenated Cell Not Reportable 12/23/20 14:09 Elliptocytes Not Reportable 12/23/20 14:09 Acanthocytes (Spur) Not Reportable 12/23/20 14:09 Rouleaux Not Reportable 12/23/20 14:09 Hemoglobin C Crystals Not Reportable 12/23/20 14:09 Schistocytes Not Reportable 12/23/20 14:09 Malaria parasites Not Reportable 12/23/20 14:09 Giorgi Bodies Not Reportable 12/23/20 14:09 Hem Pathologist Commnt No 12/23/20 14:09 PT 13.1 Sec. (12.2-14.9) 12/21/20 05:50 INR 1.01 (0.87-1.13) 12/21/20 05:50 D-Dimer 1259.33 ng/mlDDU (0-234) H 01/03/21 16:00 ABG pH 7.454 (7.320-7.450) H 12/30/20 18:03 POC ABG pCO2 49.7 mmHg (32.0-48.0) H 12/30/20 18:03 POC ABG pO2 59.0 mmHg (83-108) L 12/30/20 18:03 POC ABG HCO3 34.1 12/30/20 18:03 ABG O2 Saturation 89.9 (0-100) 12/30/20 18:03 POC ABG Base Excess 8.7 12/30/20 18:03 ABG Hemoglobin 13.9 (12.0-17.5) 12/30/20 18:03 ABG Oxyhemoglobin 88.6 (94-98) L 12/30/20 18:03 ABG Methemoglobin 0.3 (0.0-1.5) 12/30/20 18:03 ABG Sodium 146.4 mmol/L (136.0-145.0) H 12/30/20 18:03 ABG Potassium 3.7 mmol/L (3.40-4.50) 12/30/20 18:03 ABG Chloride 105.0 mmol/L (98-107) 12/30/20 18:03 ABG Glucose 252 mg/dL (65-95) H 12/30/20 18:03 Carboxyhemoglobin 1.1 (0.5-1.5) 12/30/20 18:03 FiO2 % 85 12/30/20 18:03 Sodium 146 mmol/L (137-145) H 01/05/21 04:09 Potassium 4.1 mmol/L (3.6-5.0) 01/05/21 04:09 Chloride 104.6 mmol/L (98-107) 01/05/21 04:09 Carbon Dioxide 30 mmol/L (22-30) 01/05/21 04:09 Anion Gap 16 mmol/L 01/05/21 04:09 BUN 55 mg/dL (7-17) H 01/05/21 04:09 Creatinine 1.0 mg/dL (0.6-1.2) 01/05/21 04:09 Estimated GFR > 60 ml/min 01/05/21 04:09 BUN/Creatinine Ratio 55 % 01/05/21 04:09 Glucose 241 mg/dL (65-100) H 01/05/21 04:09 POC Glucose 232 mg/dL (70-105) H 01/05/21 01:38 Hemoglobin A1c 10.3 % (4-6) H 12/21/20 05:50 Lactic Acid 1.40 mmol/L (0.7-2.0) 12/21/20 05:50 Calcium 8.3 mg/dL (8.4-10.2) L 01/05/21 04:09 Phosphorus 3.70 mg/dL (2.5-4.5) 01/05/21 04:09 Magnesium 2.70 mg/dL (1.7-2.3) H 01/05/21 04:09 Ferritin 1526.0 ng/mL (10.0-200.0) H 01/03/21 16:00 Total Bilirubin 0.60 mg/dL (0.1-1.2) 01/05/21 04:09 Direct Bilirubin 0.2 mg/dL (0-0.2) 01/05/21 04:09 Indirect Bilirubin 0.4 mg/dL 01/05/21 04:09 AST 40 units/L (5-40) 01/05/21 04:09 ALT 58 units/L (7-56) H 01/05/21 04:09 Alkaline Phosphatase 177 units/L (35-129) H 01/05/21 04:09 Lactate Dehydrogenase 815 units/L (91-180) H 01/03/21 16:00 Troponin T < 0.010 ng/mL (0.00-0.029) 12/20/20 19:27 C-Reactive Protein 0.40 mg/dL (0.00-1.30) 01/03/21 16:00 Total Protein 7.0 g/dL (6.3-8.2) 01/05/21 04:09 Albumin 2.9 g/dL (3.9-5) L 01/05/21 04:09 Albumin/Globulin Ratio 0.7 % 01/05/21 04:09 Procalcitonin 0.07 ng/mL (<0.15) 12/26/20 11:08 Arterial Blood Glucose 252 mg/dL (65-95) H 12/30/20 18:03 Arterial Blood Ionized Calcium 4.5 mg/dL (4.6-5.3) L 12/30/20 18:03 Urine Color Yellow (Yellow) 12/22/20 03:00 Urine Turbidity Clear (Clear) 12/22/20 03:00 Urine pH 5.0 (5.0-7.0) 12/22/20 03:00 Ur Specific [place] 1.019 (1.003-1.030) 12/22/20 03:00 Urine Protein 100 mg/dl mg/dL (Negative) 12/22/20 03:00 Urine Glucose (UA) 50 mg/dL (Negative) 12/22/20 03:00 Urine Ketones Neg mg/dL (Negative) 12/22/20 03:00 Urine Blood Sm (Negative) 12/22/20 03:00 Urine Nitrite Neg (Negative) 12/22/20 03:00 Urine Bilirubin Neg (Negative) 12/22/20 03:00 Urine Urobilinogen 2.0 mg/dL (<2.0) 12/22/20 03:00 Ur Leukocyte Esterase Neg (Negative) 12/22/20 03:00 Urine WBC (Auto) 1.0 /HPF (0.0-6.0) 12/22/20 03:00 Urine RBC (Auto) 1.0 /HPF (0.0-6.0) 12/22/20 03:00 U Epithel Cells (Auto) 3.0 /HPF (0-13.0) 12/22/20 03:00 Urine Bacteria (Auto) 1+ /HPF (Negative) 12/22/20 03:00 Urine Mucus Few /HPF 12/22/20 03:00 Urine Eosinophils None seen (None Seen) 12/22/20 03:00 Urine Creatinine 117.9 mg/dL (0.1-20.0) H 12/22/20 03:00 Urine Sodium 67 mmol/L 12/22/20 03:00 Coronavirus (PCR) Positive (Negative) A 12/21/20 10:28 Hepatitis A IgM Ab Non-reactive (NonReactive) 12/22/20 06:00 Hep Bs Antigen Non-reactive (Negative) 12/22/20 06:00 Hep B Core IgM Ab Non-reactive (NonReactive) 12/22/20 06:00 Hepatitis C Antibody Non-reactive (NonReactive) 12/22/20 06:00 Curtis/IV: Voiding Method Indwelling Catheter Active Medications - Current Medications Current Medications: Generic Name Dose Route Start Last Admin Trade Name Freq PRN Reason Stop Dose Admin Acetaminophen 650 mg 12/20/20 23:15 12/24/20 09:40 Acetaminophen 325 Mg Tab PO 650 mg Q4H PRN Administration Pain MILD(1-3)/Fever >100.5/VARGAS Albuterol 2.5 mg 12/21/20 12:00 Albuterol 2.5 Mg/3 Ml Nebu IH Q4HRT PRN Shortness Of Breath Amlodipine Besylate 10 mg 12/26/20 14:00 01/04/21 09:05 Amlodipine 10 Mg Tab PO 10 mg QDAY TAMEKA Administration Dextrose 50 ml 12/20/20 23:15 Dextrose 50% In Water (25gm) 50 Ml Syringe IV Q30MIN PRN Hypoglycemia Protocol Enoxaparin Sodium 40 mg 12/21/20 22:00 01/04/21 21:23 Enoxaparin 40 Mg/0.4 Ml Inj SUB-Q 40 mg QDAY@2200 TAMEKA Administration Protocol Gabapentin 800 mg 12/21/20 22:00 01/04/21 21:23 Gabapentin 400 Mg Cap PO 800 mg BID TAMEKA Administration Glipizide 10 mg 12/21/20 10:00 01/05/21 07:51 Glipizide 10 Mg Tab PO Not Given BIDDIAB TAMEKA Guaifenesin 200 mg 12/21/20 16:00 01/02/21 21:10 Guaifenesin 100 Mg/5 Ml Oral Liqd PO 200 mg Q4H PRN Administration Cough Dexmedetomidine HCl 400 mcg/ 104 mls @ 6.952 mls/hr 12/28/20 15:00 01/05/21 08:20 Sodium Chloride IV 0.3 mcg/kg/hr TITRATE TAMEKA 10.429 mls/hr Administration Protocol 0.2 MCG/KG/HR Dextrose 1,000 mls @ 42 mls/hr 01/03/21 12:00 01/04/21 11:29 D5w IV 42 mls/hr DIRECT TAMEKA Administration Methylprednisolone Sodium 250 mls @ 250 mls/hr 01/04/21 11:00 01/04/21 11:29 Succinate 1,000 mg/ Sodium IV 01/06/21 11:59 250 mls/hr Chloride Q24H TAMEKA Administration Insulin Human Isoph/Insulin Regular 34 unit 01/04/21 17:00 01/05/21 07:38 Insulin Nph/Regular 70/30 Inj SUB-Q 34 unit BIDDIAB TAMEKA Administration Insulin Human Lispro 0 unit 01/03/21 14:00 01/05/21 06:10 Insulin Lispro 100 Unit/Ml SUB-Q 6 unit Q4HR TAMEKA Administration Protocol Lorazepam 0.5 mg 12/23/20 20:12 01/05/21 06:10 Lorazepam 2 Mg/Ml Vial IV 0.5 mg Q6H PRN Administration Anxiety Magnesium Hydroxide 30 ml 12/20/20 23:15 Magnesium Hydroxide (Mom) Oral Liqd Udc PO Q4H PRN Constipation Morphine Sulfate 2 mg 12/20/20 23:15 01/03/21 06:38 Morphine 2 Mg/1 Ml Inj IV 2 mg Q4H PRN Administration Pain, Moderate (4-6) Ondansetron HCl 4 mg 12/20/20 23:15 Ondansetron 4 Mg/2 Ml Inj IV Q8H PRN Nausea And Vomiting Sodium Chloride 10 ml 12/21/20 10:00 01/04/21 21:23 Sodium Chloride 0.9% 10 Ml Flush Syringe IV 10 ml BID TAMEKA Administration Sodium Chloride 10 ml 12/20/20 23:15 12/21/20 18:48 Sodium Chloride 0.9% 10 Ml Flush Syringe IV 10 ml PRN PRN Administration LINE FLUSH Sodium Chloride 1 applic 12/22/20 12:00 01/04/21 21:23 [place] Saline Nasal Gel 14.1 Gm NS 1 applic BID TAMEKA Administration Nutrition/Malnutrition Assess - Dietary Evaluation Nutrition/Malnutrition Findings: Nutrition Notes Start: 12/21/20 09:35 Freq: Status: Active Protocol: Document 01/05/21 08:32 (Rec: 01/05/21 08:33 [id number]) Nutrition Notes Initial or Follow up Reassessment Current Diagnosis Diabetes,Hypertension, Respiratory Failure Other Pertinent Diagnosis pneu, COVID 19(+), SOB, Diabetic Neuropathy Current Diet Cardiac/Consistent CHO Labs/Tests Na 146 BUN 55 BG 241 Mg 2.7 Pertinent Medications Insulin Height 5 ft 7 in Weight 129.4 kg [place] Body Weight (kg) 61.36 BMI 44.6 Weight Status Morbidly Obese Subjective/Other Information Day 1 PPN. Pt uble to consume enough PO and remains on continous bipap. Percent of energy/protein needs met: Negligible Burn Absent Trauma Absent GI Symptoms None Current % PO Negligible Minimum of two criteria Yes Energy Intake (severe) < or equal to 50% Estimated Energy Requirement > or equal to 5 days Reduced Explosive Expert Strength Measurably Reduced (severe) #2 Nutrition Diagnosis Malnutrition Etiology acute illness As Evidenced by Signs and Symptoms <50 EER in 5 days, weak ems coordinator strength #1 Nutrition Diagnosis Inadequate oral intake Diagnosis Progress(for reassessment Continues documentation) Is patient on ventilator? No Is Patient Ambulatory and/or Out of Bed Yes REE-([place]-ambulatory/OOB) [ 2498.119 [id number]] Kcal/Kg value to use for calculation 15 Approximate Energy Requirements Using 1941 kcal/Kg Calculation Used for Recommendations Kcal/kg Additional Notes PRO needs: 114-143g (1.2-1.5g/ kg AdBW 95kg) Fluid needs: 1 mL/kcal or per MD Nutrition Intervention Change Diet Order: Continue current diet as ordered Nutrition Support: PPN at 84 Add Supplement/Snack (indicate name/kcal [place] BID /protein ) Provides kCal: 850 Provides Protein (gm) 38 Goal #1 Meet at least 75% of energy and protein needs via diet, ONS and PPN Anticipated Discharge Needs: Cardiac/Consistent CHO Follow-Up By: 01/06/21 Additional Comments Labs in AM: BMP, Mg, Phos
[2021-01-05] MEDS: methylPREDNISolone Sod Suc 1,000 MG in SODIUM CHLORIDE 0.9% 250ML 250 ML IV SCH (10:57)
[2021-01-05] MEDS: AYR SALINE NASAL GEL 14.1 GM NS SCH ×2 (10:58→21:42)
[2021-01-05] MEDS: amLODIPine 10 MG TAB PO SCH (10:58)
[2021-01-05] MEDS: GABAPENTIN 400 MG CAP PO SCH ×2 (10:59→21:42)
[2021-01-05] MEDS: DEXTROSE 5% IN WATER 1,000 ML IV SCH (11:04)
[2021-01-05] MEDS: hydrALAZINE 20 MG/1 ML INJ IV PRN (12:28)
[2021-01-05] MEDS ORDERED: ROCURONIUM 50 MG/5 ML INJ IV ONE (13:37)
[2021-01-05] MEDS ORDERED: SUCCINYLCHOLINE CHLORIDE 200 MG/10 ML INJ MDV ONE ×2 (13:37→13:40)
[2021-01-05] MEDS ORDERED: ETOMIDATE 20 MG/10 ML INJ IV ONE (13:37)
[2021-01-05] MEDS ORDERED: propofoL 200 MG/20 ML VIAL IV ONE (13:39)
[2021-01-05] MEDS ORDERED: FUROSEMIDE 40 MG/4 ML INJ IV ONE (14:00)
[2021-01-05] MEDS ORDERED: ePHEDrine SULFATE 50 MG/1 ML INJ ONE (14:11)
[2021-01-05] MEDS ORDERED: LIDOCAINE MPF (2%) 20 MG/1 ML VIAL 5 ML ONE (14:29)
[2021-01-05] MEDS ORDERED: PHENYLEPHRINE/NS 1,000 MCG/10 ML SYRINGE (OR USE) IV ONE (14:29)
[2021-01-05] MEDS ORDERED: fentaNYL 100 MCG/2 ML INJ IV PRN (14:33)
--- NOTE | 2021-01-05 14:42 | Event Note ---
Date: 01/05/21 (ICU Intubation) Called to ICU for urgent intubation of COVID+ patient in respiratory distress. Per RN, patient's family gave consent for intubation prior to procedure. On arrival, patient noted to be obtunded, tachypneic with increased WOB 124/100, 109, SpO2 mid 70s-low 80s% on NIPPV. Donned PPE per protocol prior to patient contact. Pre-ox with NIPPV already in place. Induction with lidocaine 60mg IV, propofol 150mg IV, succinylcholine 120mg IV. Easy intubation x1 attempt by Rowan BRANNON, glidescope 3, grade 1 view, 8.0 oETT. Placement confirmed by visualization, CO2 color change, and +BLBS. SpO2 desat to mid-60s after intubation which improved to mid 70s with application of significant PEEP on vent. Phenylephrine 600mcg and ephedrine 10mg IV bolus given in divided doses for transient hypotention after induction. Post intubation VS 139/89, 65, 73% on PEEP 30cdO5O. Patient stable at time of transfer of care to ICU team. CXR and sedation orders per ICU team. Times: [id number] Betty Mclain MD Anesthesiologist
--- NOTE | 2021-01-05 14:46 | XRay Report ---
CHEST 1 VIEW 01/05/2021 2:23 PM INDICATION / CLINICAL INFORMATION: ETT placement. COMPARISON: CTA chest from 12/29/2020. One view of the chest from 12/20/2020. FINDINGS: SUPPORT DEVICES: An ET tube terminates 3.4 cm above the delmi. HEART / MEDIASTINUM: Stable size of the cardiac silhouette with interval development of pneumomediast inum. LUNGS / PLEURA: Bilateral airspace opacities have increased with development of small bilateral apica l pneumothoraces. No significant pleural effusion. ADDITIONAL FINDINGS: Subcutaneous gas is seen bilaterally along the base of the neck and bilaterally along the chest. IMPRESSION: 1. Interval development of pneumomediastinum and small apical pneumothoraces. 2. Satisfactory positioning of the ET tube. 3. Additional findings as above. IMPORTANT FINDING: Time of Communication ([employer]/CDT): 13:40 Licensed Practitioner Receiving Report: ABI Hanks nurse Signer Name: Jerome Ceballos MD Signed: 01/05/2021 2:41 PM Workstation Name: [id number]
--- NOTE | 2021-01-05 14:59 | Event Note ---
Date: 01/05/21 I called and spoke with son Mr. Mendoza at [phone] and informed that patient is being intubated and is being placed on ventilatory support, due to respiratory failure as recommended by bus driver/monitor Dr. Silver. The son agreed with the plan and requested to visit the patient, checked with ICU charge nurse and informed him that he could come and visit between 2 to 4 PM today. 01/05/2021 ; patient was in severe respiratory distress in spite of BiPAP Pulmonary recommended intubation and ventilatory support I spoke with patient's son agreed with the plan and wanted to come in see his mother today Patient restrained, Dobbhoff placed, possible tube feeding today We will closely monitor patient and adjust the management as needed Discussed with patient's son Mr. Mendoza, in detail patient's condition Treatment plan, guarded prognosis. Answered all his questions Informed patient's nurse of my above conversation with patient's son.
[2021-01-05] MEDS ORDERED: ePHEDrine SULFATE 50 MG/1 ML INJ IV ONE (15:00)
--- NOTE | 2021-01-05 16:41 | XRay Report ---
ABDOMEN 1 VIEW(S) INDICATION: NGT placement COMPARISON: None available. FINDINGS: Nasogastric tubes in good position Bowel gas pattern: Within normal limits. No dilated loops of large or small bowel. Free air: None. Calcified gallstones: None seen. Calcified urinary tract calculi: None seen. Additional Findings: None. Skeletal structures: No acute abnormality. IMPRESSION: 1. No acute findings. Signer Name: Beltran Reis MD Signed: 01/05/2021 4:36 PM Workstation Name: [id number]
[2021-01-05] MEDS ORDERED: SODIUM BICARBONATE 325 MG TAB FEEDTUBE PRN (17:30)
[2021-01-05] MEDS ORDERED: LIPASE 10,500/PROTEASE 25,000/AMYLASE 43,750 (UNITS) DR CAP FEEDTUBE PRN (17:30)
[2021-01-05] MEDS ORDERED: SIMPLE SYRUP 15 ML FEEDTUBE PRN ×2 (17:30)
[2021-01-05] MEDS: ENOXAPARIN 40 MG/0.4 ML INJ SUB-Q SCH (21:42)
[2021-01-06] MEDS: INSULIN LISPRO 100 UNIT/ML SUB-Q SCH ×6 (03:05→21:51)
[2021-01-06] MEDS: hydrALAZINE 20 MG/1 ML INJ IV PRN (04:59)
[2021-01-06] MEDS: INSULIN NPH/REGULAR 70/30 INJ SUB-Q SCH ×2 (08:19→18:30)
--- NOTE | 2021-01-06 08:44 | Progress Note ---
Assessment and Plan Assessment and plan: --COVID-19 test positive on 12/21/2020 Patient was intubated and placed on ventilatory support yesterday due to severe hypoxemic respiratory failure --Acute hypoxic respiratory failure; intubated continue ventilatory support, Pulmonary critical following Respiratory failure due to severe COVID-19 infection,h/o ILD Obesity hypoventilation syndrome Wean as tolerated and extubate --History of interstitial lung disease[ILD]; on [facility] scan at [facility] Pulmonary started pulse dose steroids, received 2 dose third dose today Blood sugars moderately controlled, increased 70/30 insulin to 40 units twice a day --Sepsis due to COVID-19 pneumonia Procalcitonin low, no need for antibiotics --Severe, COVID-19 infection;Guarded prognosis Completed remdesivir Received Tocilizumab Continue IV steroids per pulmonary Monitor inflammatory markers Prone positioning as tolerated Home oxygen evaluation prior to discharge --Diabetes mellitus type 2; uncontrolled,A1c 10.3 Moderate control, Accu-Chek sliding scale coverage ADA diet Increase 7030 to 40 units subcu twice a day Diabetic education,diet education when patient is more stable --Elevated D-dimers; due to COVID-19 Negative PE, negative DVT --Hyponatremia; dehydration, poor oral intake Advised plenty free water as tolerated --Acute kidney injury; vasomotor nephropathy Secondary to dehydration, gentle hydration, free water as needed --Morbid obesity; BMI 46.2 Patient needs weight reduction when medically stable --OHS/JERMAINE; due to morbid obesity Patient needs outpatient sleep study to rule out JERMAINE CPAP/BiPAP at night and as needed --Elevated LFTs probably Covid related; Present on admission, resolved . --DVT prophylaxis; Lovenox Closely monitor the patient and adjust the management as needed E Learning Coordinator recommendations noted and appreciated Plan of care reviewed with the patient and her nurse Patient is critically ill with guarded prognosis Patient and family aware The high probability of a clinically significant, sudden or life threatening deterioration of the [multi] system(s) required my full and direct attention, intervention and personal management. The aggregate critical care time was [35] minutes. This time is in addition to time spent performing reported procedures but includes the following: [x] Data Review and interpretation [x] Patient assessment and monitoring of vital signs [x] Documentation [x] Medication orders and management Brief history and daily patient care; Morbidly obese 55 y/o -[place] female patient past medical history of ILD on CT scan[per [facility] records] was admitted with worsening shortness of breath noted to have severe COVID-19 pneumonia. With acute hypoxic respiratory failure, high flow nasal oxygen and BiPAP dependent. ID pulmonary following 12/21/2020. Follow-up COVID-19 testing. Continue to trend inflammatory markers. Continue dexamethasone. ID and pulmonary consultation pending. Patient currently with 6 L/min O2 FiO2 44%. 12/22/2020. COVID-19 testing found to be positive. Continue to trend inflammatory markers. Continue dexamethasone. Patient requiring more oxygen with high flow nasal cannula 30 L/min and FiO2 100%. ID and pulmonary following. 12/23/2020. Patient with increasing oxygen requirements with high flow nasal cannula 40 L/min with FiO2 100%. Continue dexamethasone per ID recommendations. We will transfer to IM for closer monitoring. 12/24/2020. Patient was transferred to IM for closer monitoring yesterday. Patient currently requiring BiPAP with IPAP 16 and EPAP of 8 with FiO2 100%. Continue dexamethasone and remdesivir. Continue to trend inflammatory markers. Continue anticoagulation. Prone position as possible. Continue ceftriaxone and azithromycin per ID recommendations. 12/25/2020. Patient currently requiring BiPAP with IPAP 16 and EPAP of 8 with FiO2 100%. Continue IV steroids of Solu-Medrol 60 mg every 8 hour and remdesivir. Continue to trend inflammatory markers. Continue anticoagulation with Lovenox. Prone position as possible. Continue ceftriaxone and azithromycin per ID recommendations. Prognosis is guarded. 12/26/2020 BG not controlled with glipizide. Start Lantus at bedtime for BG control. Elevated BG likely secondary to IV steroid. Patient currently requiring BiPAP with IPAP 18 and EPAP of 10 with FiO2 100%. Continue IV steroids of Solu-Medrol 60 mg every 8 hour and remdesivir. Continue to trend inflammatory markers. Continue anticoagulation with Lovenox. Prone position as possible. Continue ceftriaxone and azithromycin per ID recommendations. Pro gnosis is guarded. 12/27/2020. Blood glucose is improved but not optimal. Therefore, increase Lant us to 14 units at bedtime. Elevated BG likely secondary to IV steroid. Patient currently requiring BiPAP with IPAP 18 and EPAP of 10 with FiO2 100%. Continue IV steroids of Solu-Medrol 60 mg every 8 hour and remdesivir. Continue to trend inflammatory markers. Continue anticoagulation with Lovenox. Prone position as possible. Continue ceftriaxone and azithromycin per ID recommendations. Pro gnosis is guarded. 12/28/2020; patient's blood sugars are uncontrolled, secondary to noncompliance, partly due to high-dose steroids Patient remains hypoxic on continuous BiPAP Switch to 70/30 Novolin 20 units twice a day adjust as needed Patient's A1c 10.3, diabetic education nutrition education 12/29/2020; patient continues to be hypoxemic requiring continuous BiPAP Worsening D-dimers, CTA negative for PE, venous Doppler negative DVT 12/30/2020; patient continues to require continuous BiPAP Wean as tolerated, patient is critically ill with poor prognosis E Learning Coordinator recommendations noted and appreciated 12/31/2020; patient is on BiPAP Wean as tolerated, continue nebulizers IV steroids And other supportive care Pulmonary and ID recommendations noted and appreciated 01/01/2021; patient on continuous BiPAP 100% FiO2 Did not tolerate high flow nasal cannula 40 L 01/02/2021; patient briefly tolerated HFNC O2 Try to give Ensure intermittently if possible If unsuccessful will consider TPN 01/03/2021; patient is on high flow oxygen and BiPAP as needed Patient is tolerating nutrition supplements and diet in between Acute kidney injury with creatinine 1.3, hypernatremia Secondary to dehydration, encourage plenty free water 01/04/2021; blood sugars moderate control, increase 70/30 insulin to 34 units twice a day on continuous BiPAP, 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 Mild hypotension, fluid boluses, consider 01/05/2021; patient is on continuous BiPAP In severe respiratory distress Started on pulse dose steroids second dose today 01/06/2021; Patient was in severe respiratory failure requiring intubation ventilatory support yesterday Blood sugar slightly high, insulin dose increased to 40 units Novolin 70/30 twice a day Restraints in place, closely monitor History Interval history: I have seen and examined the patient at the bedside in IMCU this morning Isolation precautions PPE protocols followed closely COVID-19 guidelines patient is orally intubated on ventilatory support No new overnight events reported by nursing Vital signs noted Hospitalist Physical - Constitutional Vitals: Temp Pulse Resp BP Pulse Ox 97.9 F 123 H 28 H 108/68 96 01/06/21 08:00 01/06/21 07:32 01/06/21 06:31 01/06/21 07:32 01/06/21 07:32 General appearance: Present: no acute distress, well-nourished, obese (Morbidly obese), other (Intubated on ventilatory support) - EENT Eyes: Present: PERRL, EOM intact ENT: other (ET tube and Dobbhoff in place) - Neck Neck: Present: supple. Absent: enlarged thyroid, masses or JVD - Respiratory Respiratory effort: normal Respiratory: bilateral: diminished, rhonchi, negative: rales, wheezing - Cardiovascular Rhythm: regular Heart Sounds: Present: S1 & S2 - Extremities Extremities: no ischemia, abnormal (Obese) Extremity abnormal: edema - Abdominal General gastrointestinal: soft, non-tender, non-distended, normal bowel sounds - Integumentary Integumentary: Present: clear, warm - Psychiatric Psychiatric: other (Intubated on vent) - Neurologic Neurologic: other (Intubated on vent) HEART Score - HEART Score Troponin: Troponin T < 0.010 ng/mL (0.00-0.029) 12/20/20 19:27 Results - Labs CBC & Chem 7: 12/27/20 04:25 01/05/21 04:09 Labs: Laboratory Last Values WBC 7.5 K/mm3 (4.5-11.0) 12/27/20 04:25 RBC 4.05 M/mm3 (3.65-5.03) 12/27/20 04:25 Hgb 13.1 gm/dl (10.1-14.3) 12/27/20 04:25 Hct 38.8 % (30.3-42.9) D 12/27/20 04:25 MCV 96 fl (79-97) 12/27/20 04:25 MCH 32 pg (28-32) 12/27/20 04:25 MCHC 34 % (30-34) 12/27/20 04:25 RDW 13.7 % (13.2-15.2) 12/27/20 04:25 Plt Count 230 K/mm3 (140-440) 12/27/20 04:25 Lymph % (Auto) 6.4 % (13.4-35.0) L 12/27/20 04:25 [place] % (Auto) 7.5 % (0.0-7.3) H 12/27/20 04:25 Eos % (Auto) 0.0 % (0.0-4.3) 12/27/20 04:25 Baso % (Auto) 0.2 % (0.0-1.8) 12/27/20 04:25 Lymph # (Auto) 0.5 K/mm3 (1.2-5.4) L 12/27/20 04:25 [place] # (Auto) 0.6 K/mm3 (0.0-0.8) 12/27/20 04:25 Eos # (Auto) 0.0 K/mm3 (0.0-0.4) 12/27/20 04:25 Baso # (Auto) 0.0 K/mm3 (0.0-0.1) 12/27/20 04:25 Add Manual Diff Complete 12/23/20 14:09 Total Counted 100 12/23/20 14:09 Seg Neutrophils % 85.9 % (40.0-70.0) H 12/27/20 04:25 Seg Neuts % (Manual) 87.0 % (40.0-70.0) H 12/23/20 14:09 Band Neutrophils % 4.0 % 12/23/20 14:09 Lymphocytes % (Manual) 3.0 % (13.4-35.0) L 12/23/20 14:09 Reactive Lymphs % (Man) 1.0 % 12/23/20 14:09 Monocytes % (Manual) 5.0 % (0.0-7.3) 12/23/20 14:09 Nucleated RBC % 1.0 % (0.0-0.9) H 12/23/20 14:09 Seg Neutrophils # 6.4 K/mm3 (1.8-7.7) 12/27/20 04:25 Seg Neutrophils # Man 1.6 K/mm3 (1.8-7.7) L 12/23/20 14:09 Band Neutrophils # 0.1 K/mm3 12/23/20 14:09 Lymphocytes # (Manual) 0.1 K/mm3 (1.2-5.4) L 12/23/20 14:09 Abs React Lymphs (Man) 0.0 K/mm3 12/23/20 14:09 Monocytes # (Manual) 0.1 K/mm3 (0.0-0.8) 12/23/20 14:09 Eosinophils # (Manual) 0.0 K/mm3 (0.0-0.4) 12/23/20 14:09 Basophils # (Manual) 0.0 K/mm3 (0.0-0.1) 12/23/20 14:09 Metamyelocytes # 0.0 K/mm3 12/23/20 14:09 Myelocytes # 0.0 K/mm3 12/23/20 14:09 Promyelocytes # 0.0 K/mm3 12/23/20 14:09 Blast Cells # 0.0 K/mm3 12/23/20 14:09 WBC Morphology Not Reportable 12/23/20 14:09 Hypersegmented Neuts Not Reportable 12/23/20 14:09 Hyposegmented Neuts Not Reportable 12/23/20 14:09 Hypogranular Neuts Not Reportable 12/23/20 14:09 Smudge Cells Not Reportable 12/23/20 14:09 Toxic Granulation Not Reportable 12/23/20 14:09 Toxic Vacuolation Not Reportable 12/23/20 14:09 Dohle Bodies Not Reportable 12/23/20 14:09 Pelger-Huet Anomaly Not Reportable 12/23/20 14:09 Jair Rods Not Reportable 12/23/20 14:09 Platelet Estimate Consistent w auto 12/23/20 14:09 Clumped Platelets Not Reportable 12/23/20 14:09 Plt Clumps, EDTA Not Reportable 12/23/20 14:09 Large Platelets Not Reportable 12/23/20 14:09 Giant Platelets Not Reportable 12/23/20 14:09 Platelet Satelliting Not Reportable 12/23/20 14:09 Plt Morphology Comment Not Reportable 12/23/20 14:09 RBC Morphology Normal 12/23/20 14:09 Dimorphic RBCs Not Reportable 12/23/20 14:09 Polychromasia Not Reportable 12/23/20 14:09 Hypochromasia Not Reportable 12/23/20 14:09 Poikilocytosis Not Reportable 12/23/20 14:09 Anisocytosis Not Reportable 12/23/20 14:09 Microcytosis Not Reportable 12/23/20 14:09 Macrocytosis Not Reportable 12/23/20 14:09 Spherocytes Not Reportable 12/23/20 14:09 Pappenheimer Bodies Not Reportable 12/23/20 14:09 Sickle Cells Not Reportable 12/23/20 14:09 Target Cells Not Reportable 12/23/20 14:09 Tear Drop Cells Not Reportable 12/23/20 14:09 Ovalocytes Not Reportable 12/23/20 14:09 Helmet Cells Not Reportable 12/23/20 14:09 [place] Bodies Not Reportable 12/23/20 14:09 [place] Rings Not Reportable 12/23/20 14:09 Diamond Cells Not Reportable 12/23/20 14:09 Bite Cells Not Reportable 12/23/20 14:09 Crenated Cell Not Reportable 12/23/20 14:09 Elliptocytes Not Reportable 12/23/20 14:09 Acanthocytes (Spur) Not Reportable 12/23/20 14:09 Rouleaux Not Reportable 12/23/20 14:09 Hemoglobin C Crystals Not Reportable 12/23/20 14:09 Schistocytes Not Reportable 12/23/20 14:09 Malaria parasites Not Reportable 12/23/20 14:09 Giorgi Bodies Not Reportable 12/23/20 14:09 Hem Pathologist Commnt No 12/23/20 14:09 PT 13.1 Sec. (12.2-14.9) 12/21/20 05:50 INR 1.01 (0.87-1.13) 12/21/20 05:50 D-Dimer 1259.33 ng/mlDDU (0-234) H 01/03/21 16:00 ABG pH 7.237 (7.320-7.450) L 01/06/21 04:45 POC ABG pCO2 68.9 mmHg (32.0-48.0) H 01/06/21 04:45 POC ABG pO2 83.9 mmHg (83-108) 01/06/21 04:45 POC ABG HCO3 28.7 01/06/21 04:45 ABG O2 Saturation 94.8 (0-100) 01/06/21 04:45 POC ABG Base Excess -0.9 01/06/21 04:45 ABG Hemoglobin 16.2 (12.0-17.5) 01/06/21 04:45 ABG Oxyhemoglobin 93.2 (94-98) L 01/06/21 04:45 ABG Methemoglobin 0.1 (0.0-1.5) 01/06/21 04:45 ABG Sodium 145.4 mmol/L (136.0-145.0) H 01/06/21 04:45 ABG Potassium 4.2 mmol/L (3.40-4.50) 01/06/21 04:45 ABG Chloride 102.0 mmol/L (98-107) 01/06/21 04:45 ABG Glucose 152 mg/dL (65-95) H 01/06/21 04:45 Carboxyhemoglobin 1.6 (0.5-1.5) H 01/06/21 04:45 FiO2 % 100.0 01/06/21 04:45 Sodium 146 mmol/L (137-145) H 01/05/21 04:09 Potassium 4.1 mmol/L (3.6-5.0) 01/05/21 04:09 Chloride 104.6 mmol/L (98-107) 01/05/21 04:09 Carbon Dioxide 30 mmol/L (22-30) 01/05/21 04:09 Anion Gap 16 mmol/L 01/05/21 04:09 BUN 55 mg/dL (7-17) H 01/05/21 04:09 Creatinine 1.0 mg/dL (0.6-1.2) 01/05/21 04:09 Estimated GFR > 60 ml/min 01/05/21 04:09 BUN/Creatinine Ratio 55 % 01/05/21 04:09 Glucose 241 mg/dL (65-100) H 01/05/21 04:09 POC Glucose 138 mg/dL (70-105) H 01/06/21 05:26 Hemoglobin A1c 10.3 % (4-6) H 12/21/20 05:50 Lactic Acid 1.40 mmol/L (0.7-2.0) 12/21/20 05:50 Calcium 8.3 mg/dL (8.4-10.2) L 01/05/21 04:09 Phosphorus 3.70 mg/dL (2.5-4.5) 01/05/21 04:09 Magnesium 2.70 mg/dL (1.7-2.3) H 01/05/21 04:09 Ferritin 1526.0 ng/mL (10.0-200.0) H 01/03/21 16:00 Total Bilirubin 0.60 mg/dL (0.1-1.2) 01/05/21 04:09 Direct Bilirubin 0.2 mg/dL (0-0.2) 01/05/21 04:09 Indirect Bilirubin 0.4 mg/dL 01/05/21 04:09 AST 40 units/L (5-40) 01/05/21 04:09 ALT 58 units/L (7-56) H 01/05/21 04:09 Alkaline Phosphatase 177 units/L (35-129) H 01/05/21 04:09 Lactate Dehydrogenase 815 units/L (91-180) H 01/03/21 16:00 Troponin T < 0.010 ng/mL (0.00-0.029) 12/20/20 19:27 C-Reactive Protein 0.40 mg/dL (0.00-1.30) 01/03/21 16:00 Total Protein 7.0 g/dL (6.3-8.2) 01/05/21 04:09 Albumin 2.9 g/dL (3.9-5) L 01/05/21 04:09 Albumin/Globulin Ratio 0.7 % 01/05/21 04:09 Procalcitonin 0.07 ng/mL (<0.15) 12/26/20 11:08 Arterial Blood Glucose 152 mg/dL (65-95) H 01/06/21 04:45 Arterial Blood Ionized Calcium 4.7 mg/dL (4.6-5.3) 01/06/21 04:45 Urine Color Yellow (Yellow) 12/22/20 03:00 Urine Turbidity Clear (Clear) 12/22/20 03:00 Urine pH 5.0 (5.0-7.0) 12/22/20 03:00 Ur Specific [place] 1.019 (1.003-1.030) 12/22/20 03:00 Urine Protein 100 mg/dl mg/dL (Negative) 12/22/20 03:00 Urine Glucose (UA) 50 mg/dL (Negative) 12/22/20 03:00 Urine Ketones Neg mg/dL (Negative) 12/22/20 03:00 Urine Blood Sm (Negative) 12/22/20 03:00 Urine Nitrite Neg (Negative) 12/22/20 03:00 Urine Bilirubin Neg (Negative) 12/22/20 03:00 Urine Urobilinogen 2.0 mg/dL (<2.0) 12/22/20 03:00 Ur Leukocyte Esterase Neg (Negative) 12/22/20 03:00 Urine WBC (Auto) 1.0 /HPF (0.0-6.0) 12/22/20 03:00 Urine RBC (Auto) 1.0 /HPF (0.0-6.0) 12/22/20 03:00 U Epithel Cells (Auto) 3.0 /HPF (0-13.0) 12/22/20 03:00 Urine Bacteria (Auto) 1+ /HPF (Negative) 12/22/20 03:00 Urine Mucus Few /HPF 12/22/20 03:00 Urine Eosinophils None seen (None Seen) 12/22/20 03:00 Urine Creatinine 117.9 mg/dL (0.1-20.0) H 12/22/20 03:00 Urine Sodium 67 mmol/L 12/22/20 03:00 Coronavirus (PCR) Positive (Negative) A 12/21/20 10:28 Hepatitis A IgM Ab Non-reactive (NonReactive) 12/22/20 06:00 Hep Bs Antigen Non-reactive (Negative) 12/22/20 06:00 Hep B Core IgM Ab Non-reactive (NonReactive) 12/22/20 06:00 Hepatitis C Antibody Non-reactive (NonReactive) 12/22/20 06:00 Curtis/IV: Voiding Method Indwelling Catheter Active Medications - Current Medications Current Medications: Generic Name Dose Route Start Last Admin Trade Name Freq PRN Reason Stop Dose Admin Acetaminophen 650 mg 12/20/20 23:15 12/24/20 09:40 Acetaminophen 325 Mg Tab PO 650 mg Q4H PRN Administration Pain MILD(1-3)/Fever >100.5/VARGAS Albuterol 2.5 mg 12/21/20 12:00 Albuterol 2.5 Mg/3 Ml Nebu IH Q4HRT PRN Shortness Of Breath Amlodipine Besylate 10 mg 12/26/20 14:00 01/05/21 10:58 Amlodipine 10 Mg Tab PO Not Given QDAY TAMEKA Lipase/Protease/Amylase 1 each 01/05/21 17:30 Lipase 10,500/Protease 25,000/Amylase 43,750 (Units) Dr Giron FEEDTUBE PRN PRN For Clogged Feeding Tube Dextrose 50 ml 12/20/20 23:15 Dextrose 50% In Water (25gm) 50 Ml Syringe IV Q30MIN PRN Hypoglycemia Protocol Enoxaparin Sodium 40 mg 12/21/20 22:00 01/05/21 21:42 Enoxaparin 40 Mg/0.4 Ml Inj SUB-Q 40 mg QDAY@2200 TAMEKA Administration Protocol Fentanyl 50 mcg 01/05/21 14:33 Fentanyl 100 Mcg/2 Ml Inj IV Q10MIN PRN ANALGESIA Gabapentin 800 mg 12/21/20 22:00 01/05/21 21:42 Gabapentin 400 Mg Cap PO 800 mg BID TAMEKA Administration Guaifenesin 200 mg 12/21/20 16:00 01/02/21 21:10 Guaifenesin 100 Mg/5 Ml Oral Liqd PO 200 mg Q4H PRN Administration Cough Hydralazine HCl 10 mg 01/05/21 10:28 01/06/21 04:59 Hydralazine 20 Mg/1 Ml Inj IV 10 mg Q6H PRN Administration SBP >/=160; DBP >/=100 Dexmedetomidine HCl 400 mcg/ 104 mls @ 6.952 mls/hr 12/28/20 15:00 01/05/21 16:05 Sodium Chloride IV Infused TITRATE TAMEKA Titration Protocol 0.2 MCG/KG/HR Dextrose 1,000 mls @ 42 mls/hr 01/03/21 12:00 01/05/21 11:04 D5w IV 42 mls/hr DIRECT TAMEKA Administration Methylprednisolone Sodium 250 mls @ 250 mls/hr 01/04/21 11:00 01/05/21 10:57 Succinate 1,000 mg/ Sodium IV 01/06/21 11:59 250 mls/hr Chloride Q24H TAMEKA Administration Propofol 1,000 mg in 100 mls @ 3.882 mls/hr 01/05/21 15:00 01/06/21 06:38 Diprivan 10 Mg/Ml IV 15 mcg/kg/min TITR TAMEKA 11.646 mls/hr Administration Protocol 5 MCG/KG/MIN Fentanyl Citrate 2,000 mcg in 100 mls @ 6.47 mls/hr 01/05/21 15:00 Fentanyl Drip Premix IV TITR [facility] Protocol 1 MCG/KG/HR Insulin Human Isoph/Insulin Regular 40 unit 01/05/21 17:00 01/06/21 08:19 Insulin Nph/Regular 70/30 Inj SUB-Q 40 unit BIDDIAB TAMEKA Administration Insulin Human Lispro 0 unit 01/03/21 14:00 01/06/21 05:32 Insulin Lispro 100 Unit/Ml SUB-Q Not Given Q4HR [facility] Protocol Lorazepam 0.5 mg 12/23/20 20:12 01/05/21 12:27 Lorazepam 2 Mg/Ml Vial IV 0.5 mg Q6H PRN Administration Anxiety Magnesium Hydroxide 30 ml 12/20/20 23:15 Magnesium Hydroxide (Mom) Oral Liqd Udc PO Q4H PRN Constipation Morphine Sulfate 2 mg 12/20/20 23:15 01/03/21 06:38 Morphine 2 Mg/1 Ml Inj IV 2 mg Q4H PRN Administration Pain, Moderate (4-6) Ondansetron HCl 4 mg 12/20/20 23:15 Ondansetron 4 Mg/2 Ml Inj IV Q8H PRN Nausea And Vomiting Simple Syrup 15 ml 01/05/21 17:30 Simple Syrup 15 Ml FEEDTUBE PRN PRN Hypoglycemia Simple Syrup 30 ml 01/05/21 17:30 Simple Syrup 15 Ml FEEDTUBE PRN PRN Hypoglycemia Sodium Bicarbonate 325 mg 01/05/21 17:30 Sodium Bicarbonate 325 Mg Tab FEEDTUBE PRN PRN For Clogged Feeding Tube Sodium Chloride 10 ml 12/21/20 10:00 01/05/21 21:43 Sodium Chloride 0.9% 10 Ml Flush Syringe IV 10 ml BID TAMEKA Administration Sodium Chloride 10 ml 12/20/20 23:15 12/21/20 18:48 Sodium Chloride 0.9% 10 Ml Flush Syringe IV 10 ml PRN PRN Administration LINE FLUSH Sodium Chloride 1 applic 12/22/20 12:00 01/05/21 21:42 [place] Saline Nasal Gel 14.1 Gm NS 1 applic BID TAMEKA Administration Nutrition/Malnutrition Assess - Dietary Evaluation Nutrition/Malnutrition Findings: Nutrition Notes Start: 12/21/20 09:35 Freq: Status: Active Protocol: Document 01/06/21 07:54 MK (Rec: 05/27/21 07:58 [email or web address]) Nutrition Notes Need for Assessment generated from: MD Order Initial or Follow up Reassessment Current Diagnosis Diabetes,Hypertension, Respiratory Failure Other Pertinent Diagnosis pneu, COVID 19(+), SOB, Diabetic Neuropathy Current Diet TF Labs/Tests No new labs Pertinent Medications Propofol at 11.646ml/hr ( 307kcal) Height 5 ft 7 in Weight 129.4 kg [place] Body Weight (kg) 61.36 BMI 44.6 Weight Status Morbidly Obese Subjective/Other Information MD order for TF. Pt was intubated. 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 Yes Is Patient Ambulatory and/or Out of Bed No REE-([facility]-confined to bed) 2309.676 Kcal/Kg value to use for calculation 15 Approximate Energy Requirements Using 1941 kcal/Kg Calculation Used for Recommendations Kcal/kg Additional Notes PRO needs: >154g (<2.5g/kg IBW ) Fluid needs: 1 mL/kcal or per MD Nutrition Intervention Nutrition Support: Vital AF at 65 ml/hr Flush 100 q4h Kcal 1,872 Protein (gm) 117 Carbohydrates (gm) 197 Fat (gm) 84 Fluid (mL) 1,265 Fiber (gm) 0 Add Supplement/Snack (indicate name/kcal D/c /protein ) Goal #1 Meet at least 75% of energy and protein needs via TF Anticipated Discharge Needs: Unable to determine at this time Follow-Up By: 01/10/21 Additional Comments FU for TF start and tolerance
--- NOTE | 2021-01-06 09:35 | Progress Note ---
Assessment and Plan 55 y/o female with acute respiratory failure secondary to cOVID 19 with prior history of ILD on a CT in [place] system 01/06/21: May need to give another dose of lasix today. Await Chemistry from this am. Practicing lung protective strategy so low tidal volumes with permissive hypercapnea is acceptable as long as pH is 7.2 and above. Will repeat gas this afternoon on new settings. Feed patient. Guarded prognosis. 01/05/21: Continue bipap therapy for now. Continue stress dose steroids. Hopeful patient will improve but may ultimately require intubation. Very very sick lungs prior to acquiring covid. 01/04/21: No lasix again today. Continue Free water at current IV rate as stated below. Check labs tomorrow. COntinue PPV and attempt to wean FiO2 accordingly. Consider nutrition consult for PPN. Prognosis still remains very guarded. 01/03/21: continue between HFNC and bipap. Will hold on lasix today as patient is getting more hypernatremia and worsening renal function. All secondary to lack of eating and drinking. Ok with starting with D5 at like 42/hr. Guarded prognosis. 01/02/21: Continue to avoid intubation at all costs. Continue high dose steroids. Given concern for ILD, may even need to consider pulse dose steroids but will discuss on rounds tomorrow. Lasix was given last night and yesterday morning. negative 1700 on yesterday. Please check labs in the am as I would like to give lasix again tonight. 01/01/21: Unfortunately, given her high risk for intubation, patient will not be able to eat. Nutrition has been an issue and we will discuss this on rounds. May need PPN. Continue steroids at current dosing. Will give an additional dose of lasix tonight. 12/31/20: will continue steroids today as same dose and frequency. No changes to lasix therapy. Need to keep patient as calm as possible to allow bipap to work to avoid intubation at all costs. Prognosis still remains guarded. 12/30/20: Continue steroids at 60q6. Continue daily lasix. may need to consider BID dosing to help with more volume removal if renal function will permit. Overall prognosis is very very guarded to poor, especially if the patient ends up on the mechanical ventilator. 12/29/20: Will increase steroids to q6 hour dosing to see if this helps. Prognosis is very very guarded. 12/28/20: Continue steroids and lasix, may need to ask renal about BID dosing for a few days to see if this will help. Prone as tolerated during the day and sleep prone at night. 1. Agree with change in steroids to solumedrol 60q8, will continue for now 2. Agree with daily lasix but goal should be daily net negative state. 3. Prone as tolerated during the day and sleep prone at night 4. Guarded prognosis CCT 31 minutes. Subjective Date of service: 01/06/21 Principal diagnosis: COVID-19 Interval history: Intubated on yesterday. Stable. Peak Pressurs are under 40. Sats in the mid 90's on 100%. Sedated with Propofol and Precedex. Objective Vital Signs - 12hr 01/05/21 01/05/21 01/05/21 22:00 23:01 23:41 Temperature Pulse Rate 101 H 98 H 101 H Respiratory 24 20 23 Rate Blood Pressure 142/86 128/86 149/78 O2 Sat by Pulse 94 97 96 Oximetry 01/06/21 01/06/21 01/06/21 00:00 00:17 00:22 Temperature 98.2 F Pulse Rate 102 H 101 H 100 H Respiratory 20 Rate Blood Pressure 144/84 136/85 O2 Sat by Pulse 97 97 Oximetry 01/06/21 01/06/21 01/06/21 01:01 01:31 02:00 Temperature Pulse Rate 103 H 108 H 109 H Respiratory 17 23 15 Rate Blood Pressure 149/78 141/95 145/85 O2 Sat by Pulse 98 96 97 Oximetry 01/06/21 01/06/21 01/06/21 02:30 03:01 03:31 Temperature Pulse Rate 110 H 116 H 122 H Respiratory 19 22 22 Rate Blood Pressure 140/92 97/57 141/96 O2 Sat by Pulse 98 98 96 Oximetry 01/06/21 01/06/21 01/06/21 04:00 04:31 04:46 Temperature Pulse Rate 116 H 117 H 117 H Respiratory 19 19 Rate Blood Pressure 153/109 166/103 O2 Sat by Pulse 98 98 94 Oximetry 01/06/21 01/06/21 01/06/21 04:59 05:00 05:31 Temperature Pulse Rate 113 H 112 H 117 H Respiratory 24 24 Rate Blood Pressure 172/95 169/88 151/88 O2 Sat by Pulse 96 96 Oximetry 01/06/21 01/06/21 01/06/21 06:00 06:31 07:00 Temperature Pulse Rate 117 H 119 H 122 H Respiratory 26 H 28 H 22 Rate Blood Pressure 158/90 112/76 134/75 O2 Sat by Pulse 95 97 97 Oximetry 01/06/21 01/06/21 01/06/21 07:30 07:32 08:00 Temperature 97.9 F Pulse Rate 124 H 123 H Respiratory 27 H Rate Blood Pressure 108/68 108/68 O2 Sat by Pulse 96 96 Oximetry 01/06/21 01/06/21 01/06/21 08:01 08:30 09:01 Temperature Pulse Rate 120 H 123 H 125 H Respiratory 30 H 23 22 Rate Blood Pressure 108/68 117/60 117/60 O2 Sat by Pulse 95 96 95 Oximetry Constitutional: no acute distress, alert (obese), other (on BIPAP) Eyes: non-icteric ENT: oropharynx moist Neck: supple Effort: normal Ascultation: Bilateral: clear, diminished breath sounds (anteriorly) Cardiovascular: regular rate and rhythm (no mrg) Gastrointestinal: normoactive bowel sounds, soft, non-tender, non-distended Integumentary: normal Extremities: no cyanosis, no edema, pink and warm Neurologic: normal mental status, non-focal exam Psychiatric: mood appropriate, affect normal CBC and BMP: 12/27/20 04:25 01/05/21 04:09 ABG, PT/INR, D-dimer: ABG ABG pH 7.237 (7.320-7.450) L 01/06/21 04:45 POC ABG pCO2 68.9 mmHg (32.0-48.0) H 01/06/21 04:45 POC ABG pO2 83.9 mmHg (83-108) 01/06/21 04:45 POC ABG HCO3 28.7 01/06/21 04:45 ABG O2 Saturation 94.8 (0-100) 01/06/21 04:45 PT/INR, D-dimer PT 13.1 Sec. (12.2-14.9) 12/21/20 05:50 INR 1.01 (0.87-1.13) 12/21/20 05:50 D-Dimer 1259.33 ng/mlDDU (0-234) H 01/03/21 16:00 Abnormal lab findings: Abnormal Labs 12/20/20 12/20/20 12/20/20 19:27 19:27 19:27 WBC 2.9 L RBC MCHC Plt Count 116 L Lymph % (Auto) 41.2 H [place] % (Auto) 13.2 H Lymph # (Auto) Seg Neutrophils % Seg Neuts % (Manual) Lymphocytes % (Manual) Nucleated RBC % Seg Neutrophils # 1.3 L Seg Neutrophils # Man Lymphocytes # (Manual) D-Dimer 260.58 H ABG pH POC ABG pCO2 POC ABG pO2 ABG Oxyhemoglobin ABG Sodium ABG Glucose Carboxyhemoglobin Sodium 135 L Potassium Chloride 96.1 L Carbon Dioxide BUN 23 H Creatinine 1.4 H Glucose 295 H POC Glucose Hemoglobin A1c Calcium 8.3 L Magnesium Ferritin AST 125 H ALT 96 H Alkaline Phosphatase 323 H Lactate Dehydrogenase C-Reactive Protein Total Protein 8.7 H Albumin 3.7 L Arterial Blood Glucose Arterial Blood Ionized Calcium Urine Creatinine Coronavirus (PCR) 12/20/20 12/20/20 12/21/20 19:43 19:43 05:50 WBC RBC MCHC Plt Count Lymph % (Auto) [place] % (Auto) Lymph # (Auto) Seg Neutrophils % Seg Neuts % (Manual) Lymphocytes % (Manual) Nucleated RBC % Seg Neutrophils # Seg Neutrophils # Man Lymphocytes # (Manual) D-Dimer ABG pH POC ABG pCO2 POC ABG pO2 ABG Oxyhemoglobin ABG Sodium ABG Glucose Carboxyhemoglobin Sodium Potassium Chloride Carbon Dioxide BUN Creatinine Glucose 297 H POC Glucose Hemoglobin A1c 10.3 H Calcium Magnesium Ferritin 1420.0 H AST ALT Alkaline Phosphatase Lactate Dehydrogenase 491 H C-Reactive Protein 5.50 H Total Protein Albumin Arterial Blood Glucose Arterial Blood Ionized Calcium Urine Creatinine Coronavirus (PCR) 12/21/20 12/21/20 12/21/20 05:50 05:50 08:04 WBC 1.6 L* RBC 3.40 L MCHC Plt Count 104 L Lymph % (Auto) [place] % (Auto) Lymph # (Auto) Seg Neutrophils % Seg Neuts % (Manual) 82.0 H Lymphocytes % (Manual) Nucleated RBC % Seg Neutrophils # Seg Neutrophils # Man 1.3 L Lymphocytes # (Manual) 0.3 L D-Dimer ABG pH POC ABG pCO2 POC ABG pO2 ABG Oxyhemoglobin ABG Sodium ABG Glucose Carboxyhemoglobin Sodium 132 L Potassium 5.7 H D Chloride 95.7 L Carbon Dioxide BUN 33 H Creatinine 1.7 H Glucose 500 H POC Glucose 483 H Hemoglobin A1c Calcium 7.7 L Magnesium Ferritin AST ALT Alkaline Phosphatase Lactate Dehydrogenase C-Reactive Protein Total Protein Albumin Arterial Blood Glucose Arterial Blood Ionized Calcium Urine Creatinine Coronavirus (PCR) 12/21/20 12/21/20 12/21/20 10:28 12:05 16:54 WBC RBC MCHC Plt Count Lymph % (Auto) [place] % (Auto) Lymph # (Auto) Seg Neutrophils % Seg Neuts % (Manual) Lymphocytes % (Manual) Nucleated RBC % Seg Neutrophils # Seg Neutrophils # Man Lymphocytes # (Manual) D-Dimer ABG pH POC ABG pCO2 POC ABG pO2 ABG Oxyhemoglobin ABG Sodium ABG Glucose Carboxyhemoglobin Sodium Potassium Chloride Carbon Dioxide BUN Creatinine Glucose POC Glucose 482 H 374 H Hemoglobin A1c Calcium Magnesium Ferritin AST ALT Alkaline Phosphatase Lactate Dehydrogenase C-Reactive Protein Total Protein Albumin Arterial Blood Glucose Arterial Blood Ionized Calcium Urine Creatinine Coronavirus (PCR) Positive A 12/21/20 12/21/20 12/22/20 18:24 22:12 03:00 WBC RBC MCHC Plt Count Lymph % (Auto) [place] % (Auto) Lymph # (Auto) Seg Neutrophils % Seg Neuts % (Manual) Lymphocytes % (Manual) Nucleated RBC % Seg Neutrophils # Seg Neutrophils # Man Lymphocytes # (Manual) D-Dimer ABG pH POC ABG pCO2 POC ABG pO2 ABG Oxyhemoglobin ABG Sodium ABG Glucose Carboxyhemoglobin Sodium 131 L Potassium Chloride 95.2 L Carbon Dioxide BUN 37 H Creatinine 1.4 H Glucose 417 H POC Glucose 358 H Hemoglobin A1c Calcium 7.5 L Magnesium Ferritin AST 82 H ALT 69 H Alkaline Phosphatase 262 H Lactate Dehydrogenase C-Reactive Protein Total Protein Albumin 3.0 L Arterial Blood Glucose Arterial Blood Ionized Calcium Urine Creatinine 117.9 H Coronavirus (PCR) 12/22/20 12/22/20 12/22/20 05:29 08:19 11:18 WBC RBC MCHC Plt Count Lymph % (Auto) [place] % (Auto) Lymph # (Auto) Seg Neutrophils % Seg Neuts % (Manual) Lymphocytes % (Manual) Nucleated RBC % Seg Neutrophils # Seg Neutrophils # Man Lymphocytes # (Manual) D-Dimer ABG pH POC ABG pCO2 POC ABG pO2 ABG Oxyhemoglobin ABG Sodium ABG Glucose Carboxyhemoglobin Sodium Potassium Chloride Carbon Dioxide BUN 34 H Creatinine 1.3 H Glucose 169 H POC Glucose 136 H 132 H Hemoglobin A1c Calcium 7.5 L Magnesium Ferritin AST 74 H ALT 60 H Alkaline Phosphatase 249 H Lactate Dehydrogenase C-Reactive Protein Total Protein Albumin 3.1 L Arterial Blood Glucose Arterial Blood Ionized Calcium Urine Creatinine Coronavirus (PCR) 12/22/20 12/22/20 12/22/20 14:18 14:18 16:36 WBC RBC MCHC Plt Count Lymph % (Auto) [place] % (Auto) Lymph # (Auto) Seg Neutrophils % Seg Neuts % (Manual) Lymphocytes % (Manual) Nucleated RBC % Seg Neutrophils # Seg Neutrophils # Man Lymphocytes # (Manual) D-Dimer ABG pH POC ABG pCO2 POC ABG pO2 ABG Oxyhemoglobin ABG Sodium ABG Glucose Carboxyhemoglobin Sodium Potassium Chloride Carbon Dioxide BUN Creatinine Glucose POC Glucose 440 H Hemoglobin A1c Calcium Magnesium Ferritin 1295.0 H AST ALT Alkaline Phosphatase Lactate Dehydrogenase 620 H C-Reactive Protein 2.70 H Total Protein Albumin Arterial Blood Glucose Arterial Blood Ionized Calcium Urine Creatinine Coronavirus (PCR) 12/22/20 12/23/20 12/23/20 21:07 08:09 11:30 WBC RBC MCHC Plt Count Lymph % (Auto) [place] % (Auto) Lymph # (Auto) Seg Neutrophils % Seg Neuts % (Manual) Lymphocytes % (Manual) Nucleated RBC % Seg Neutrophils # Seg Neutrophils # Man Lymphocytes # (Manual) D-Dimer ABG pH POC ABG pCO2 POC ABG pO2 ABG Oxyhemoglobin ABG Sodium ABG Glucose Carboxyhemoglobin Sodium Potassium Chloride Carbon Dioxide BUN Creatinine Glucose POC Glucose 493 H 156 H 185 H Hemoglobin A1c Calcium Magnesium Ferritin AST ALT Alkaline Phosphatase Lactate Dehydrogenase C-Reactive Protein Total Protein Albumin Arterial Blood Glucose Arterial Blood Ionized Calcium Urine Creatinine Coronavirus (PCR) 12/23/20 12/23/20 12/23/20 14:09 14:09 16:26 WBC 1.8 L* RBC 3.45 L MCHC Plt Count 114 L Lymph % (Auto) [place] % (Auto) Lymph # (Auto) Seg Neutrophils % Seg Neuts % (Manual) 87.0 H Lymphocytes % (Manual) 3.0 L Nucleated RBC % 1.0 H Seg Neutrophils # Seg Neutrophils # Man 1.6 L Lymphocytes # (Manual) 0.1 L D-Dimer ABG pH POC ABG pCO2 POC ABG pO2 ABG Oxyhemoglobin ABG Sodium ABG Glucose Carboxyhemoglobin Sodium Potassium Chloride Carbon Dioxide BUN 19 H Creatinine Glucose 292 H POC Glucose 351 H Hemoglobin A1c Calcium 7.4 L Magnesium Ferritin AST 71 H ALT Alkaline Phosphatase 264 H Lactate Dehydrogenase C-Reactive Protein Total Protein Albumin 3.0 L Arterial Blood Glucose Arterial Blood Ionized Calcium Urine Creatinine Coronavirus (PCR) 12/23/20 12/24/20 12/24/20 21:11 08:21 11:58 WBC RBC MCHC Plt Count Lymph % (Auto) [place] % (Auto) Lymph # (Auto) Seg Neutrophils % Seg Neuts % (Manual) Lymphocytes % (Manual) Nucleated RBC % Seg Neutrophils # Seg Neutrophils # Man Lymphocytes # (Manual) D-Dimer ABG pH POC ABG pCO2 POC ABG pO2 ABG Oxyhemoglobin ABG Sodium ABG Glucose Carboxyhemoglobin Sodium Potassium Chloride Carbon Dioxide BUN Creatinine Glucose POC Glucose 288 H 286 H 277 H Hemoglobin A1c Calcium Magnesium Ferritin AST ALT Alkaline Phosphatase Lactate Dehydrogenase C-Reactive Protein Total Protein Albumin Arterial Blood Glucose Arterial Blood Ionized Calcium Urine Creatinine Coronavirus (PCR) 12/24/20 12/24/20 12/24/20 12:29 12:29 16:05 WBC 2.5 L RBC 3.49 L MCHC 35 H Plt Count 132 L Lymph % (Auto) [place] % (Auto) 7.6 H Lymph # (Auto) 0.4 L Seg Neutrophils % 74.7 H Seg Neuts % (Manual) Lymphocytes % (Manual) Nucleated RBC % Seg Neutrophils # Seg Neutrophils # Man Lymphocytes # (Manual) D-Dimer ABG pH POC ABG pCO2 POC ABG pO2 ABG Oxyhemoglobin ABG Sodium ABG Glucose Carboxyhemoglobin Sodium Potassium Chloride Carbon Dioxide BUN Creatinine Glucose 256 H POC Glucose 282 H Hemoglobin A1c Calcium 7.8 L Magnesium Ferritin AST 50 H ALT Alkaline Phosphatase 262 H Lactate Dehydrogenase C-Reactive Protein Total Protein Albumin 2.8 L Arterial Blood Glucose Arterial Blood Ionized Calcium Urine Creatinine Coronavirus (PCR) 12/24/20 12/25/20 12/25/20 22:01 07:58 11:38 WBC RBC MCHC Plt Count Lymph % (Auto) [place] % (Auto) Lymph # (Auto) Seg Neutrophils % Seg Neuts % (Manual) Lymphocytes % (Manual) Nucleated RBC % Seg Neutrophils # Seg Neutrophils # Man Lymphocytes # (Manual) D-Dimer ABG pH POC ABG pCO2 POC ABG pO2 ABG Oxyhemoglobin ABG Sodium ABG Glucose Carboxyhemoglobin Sodium Potassium Chloride Carbon Dioxide BUN Creatinine Glucose POC Glucose 366 H 278 H 325 H Hemoglobin A1c Calcium Magnesium Ferritin AST ALT Alkaline Phosphatase Lactate Dehydrogenase C-Reactive Protein Total Protein Albumin Arterial Blood Glucose Arterial Blood Ionized Calcium Urine Creatinine Coronavirus (PCR) 12/25/20 12/25/20 12/26/20 15:47 21:31 04:29 WBC RBC MCHC Plt Count Lymph % (Auto) [place] % (Auto) Lymph # (Auto) Seg Neutrophils % Seg Neuts % (Manual) Lymphocytes % (Manual) Nucleated RBC % Seg Neutrophils # Seg Neutrophils # Man Lymphocytes # (Manual) D-Dimer ABG pH POC ABG pCO2 POC ABG pO2 ABG Oxyhemoglobin ABG Sodium ABG Glucose Carboxyhemoglobin Sodium Potassium Chloride Carbon Dioxide BUN 22 H Creatinine Glucose 327 H POC Glucose 316 H 339 H Hemoglobin A1c Calcium 7.9 L Magnesium Ferritin AST ALT Alkaline Phosphatase Lactate Dehydrogenase C-Reactive Protein Total Protein Albumin Arterial Blood Glucose Arterial Blood Ionized Calcium Urine Creatinine Coronavirus (PCR) 12/26/20 12/26/20 12/26/20 07:42 11:08 11:08 WBC RBC MCHC Plt Count Lymph % (Auto) [place] % (Auto) Lymph # (Auto) Seg Neutrophils % Seg Neuts % (Manual) Lymphocytes % (Manual) Nucleated RBC % Seg Neutrophils # Seg Neutrophils # Man Lymphocytes # (Manual) D-Dimer 1954.54 H ABG pH POC ABG pCO2 POC ABG pO2 ABG Oxyhemoglobin ABG Sodium ABG Glucose Carboxyhemoglobin Sodium Potassium Chloride Carbon Dioxide BUN Creatinine Glucose POC Glucose 353 H Hemoglobin A1c Calcium Magnesium Ferritin 932.1 H AST ALT Alkaline Phosphatase Lactate Dehydrogenase C-Reactive Protein Total Protein Albumin Arterial Blood Glucose Arterial Blood Ionized Calcium Urine Creatinine Coronavirus (PCR) 12/26/20 12/26/20 12/26/20 11:08 11:57 16:40 WBC RBC MCHC Plt Count Lymph % (Auto) [place] % (Auto) Lymph # (Auto) Seg Neutrophils % Seg Neuts % (Manual) Lymphocytes % (Manual) Nucleated RBC % Seg Neutrophils # Seg Neutrophils # Man Lymphocytes # (Manual) D-Dimer ABG pH POC ABG pCO2 POC ABG pO2 ABG Oxyhemoglobin ABG Sodium ABG Glucose Carboxyhemoglobin Sodium Potassium Chloride Carbon Dioxide BUN Creatinine Glucose POC Glucose 318 H 352 H Hemoglobin A1c Calcium Magnesium Ferritin AST ALT Alkaline Phosphatase Lactate Dehydrogenase 698 H C-Reactive Protein 3.70 H Total Protein Albumin Arterial Blood Glucose Arterial Blood Ionized Calcium Urine Creatinine Coronavirus (PCR) 12/26/20 12/27/20 12/27/20 21:29 04:25 04:25 WBC RBC MCHC Plt Count Lymph % (Auto) 6.4 L [place] % (Auto) 7.5 H Lymph # (Auto) 0.5 L Seg Neutrophils % 85.9 H Seg Neuts % (Manual) Lymphocytes % (Manual) Nucleated RBC % Seg Neutrophils # Seg Neutrophils # Man Lymphocytes # (Manual) D-Dimer ABG pH POC ABG pCO2 POC ABG pO2 ABG Oxyhemoglobin ABG Sodium ABG Glucose Carboxyhemoglobin Sodium Potassium 5.4 H D Chloride Carbon Dioxide BUN 30 H Creatinine Glucose 273 H POC Glucose 376 H Hemoglobin A1c Calcium 8.1 L Magnesium Ferritin AST ALT Alkaline Phosphatase 242 H Lactate Dehydrogenase C-Reactive Protein Total Protein Albumin 2.7 L Arterial Blood Glucose Arterial Blood Ionized Calcium Urine Creatinine Coronavirus (PCR) 12/27/20 12/27/20 12/27/20 08:05 11:39 17:28 WBC RBC MCHC Plt Count Lymph % (Auto) [place] % (Auto) Lymph # (Auto) Seg Neutrophils % Seg Neuts % (Manual) Lymphocytes % (Manual) Nucleated RBC % Seg Neutrophils # Seg Neutrophils # Man Lymphocytes # (Manual) D-Dimer ABG pH POC ABG pCO2 POC ABG pO2 ABG Oxyhemoglobin ABG Sodium ABG Glucose Carboxyhemoglobin Sodium Potassium Chloride Carbon Dioxide BUN Creatinine Glucose POC Glucose 287 H 359 H 490 H Hemoglobin A1c Calcium Magnesium Ferritin AST ALT Alkaline Phosphatase Lactate Dehydrogenase C-Reactive Protein Total Protein Albumin Arterial Blood Glucose Arterial Blood Ionized Calcium Urine Creatinine Coronavirus (PCR) 12/27/20 12/27/20 12/28/20 21:43 21:53 04:41 WBC RBC MCHC Plt Count Lymph % (Auto) [place] % (Auto) Lymph # (Auto) Seg Neutrophils % Seg Neuts % (Manual) Lymphocytes % (Manual) Nucleated RBC % Seg Neutrophils # Seg Neutrophils # Man Lymphocytes # (Manual) D-Dimer ABG pH POC ABG pCO2 POC ABG pO2 ABG Oxyhemoglobin ABG Sodium ABG Glucose Carboxyhemoglobin Sodium Potassium Chloride Carbon Dioxide 31 H BUN 35 H Creatinine Glucose 328 H POC Glucose 503 H 438 H Hemoglobin A1c Calcium Magnesium Ferritin AST ALT Alkaline Phosphatase Lactate Dehydrogenase C-Reactive Protein Total Protein Albumin Arterial Blood Glucose Arterial Blood Ionized Calcium Urine Creatinine Coronavirus (PCR) 12/28/20 12/28/20 12/28/20 07:58 11:40 15:43 WBC RBC MCHC Plt Count Lymph % (Auto) [place] % (Auto) Lymph # (Auto) Seg Neutrophils % Seg Neuts % (Manual) Lymphocytes % (Manual) Nucleated RBC % Seg Neutrophils # Seg Neutrophils # Man Lymphocytes # (Manual) D-Dimer 4626.15 H ABG pH POC ABG pCO2 POC ABG pO2 ABG Oxyhemoglobin ABG Sodium ABG Glucose Carboxyhemoglobin Sodium Potassium Chloride Carbon Dioxide BUN Creatinine Glucose POC Glucose 321 H 455 H Hemoglobin A1c Calcium Magnesium Ferritin AST ALT Alkaline Phosphatase Lactate Dehydrogenase C-Reactive Protein Total Protein Albumin Arterial Blood Glucose Arterial Blood Ionized Calcium Urine Creatinine Coronavirus (PCR) 12/28/20 12/28/20 12/28/20 15:43 15:43 17:10 WBC RBC MCHC Plt Count Lymph % (Auto) [place] % (Auto) Lymph # (Auto) Seg Neutrophils % Seg Neuts % (Manual) Lymphocytes % (Manual) Nucleated RBC % Seg Neutrophils # Seg Neutrophils # Man Lymphocytes # (Manual) D-Dimer ABG pH POC ABG pCO2 POC ABG pO2 ABG Oxyhemoglobin ABG Sodium ABG Glucose Carboxyhemoglobin Sodium Potassium Chloride Carbon Dioxide BUN Creatinine Glucose POC Glucose 291 H Hemoglobin A1c Calcium Magnesium Ferritin 1030.0 H AST ALT Alkaline Phosphatase Lactate Dehydrogenase 838 H C-Reactive Protein Total Protein Albumin Arterial Blood Glucose Arterial Blood Ionized Calcium Urine Creatinine Coronavirus (PCR) 12/28/20 12/29/20 12/29/20 21:42 05:12 08:25 WBC RBC MCHC Plt Count Lymph % (Auto) [place] % (Auto) Lymph # (Auto) Seg Neutrophils % Seg Neuts % (Manual) Lymphocytes % (Manual) Nucleated RBC % Seg Neutrophils # Seg Neutrophils # Man Lymphocytes # (Manual) D-Dimer ABG pH POC ABG pCO2 POC ABG pO2 ABG Oxyhemoglobin ABG Sodium ABG Glucose Carboxyhemoglobin Sodium 146 H Potassium Chloride Carbon Dioxide 32 H BUN 34 H Creatinine Glucose 126 H POC Glucose 240 H 176 H Hemoglobin A1c Calcium Magnesium Ferritin AST ALT Alkaline Phosphatase Lactate Dehydrogenase C-Reactive Protein Total Protein Albumin Arterial Blood Glucose Arterial Blood Ionized Calcium Urine Creatinine Coronavirus (PCR) 0512/29/20 12/29/20 11:24 16:49 21:39 WBC RBC MCHC Plt Count Lymph % (Auto) [place] % (Auto) Lymph # (Auto) Seg Neutrophils % Seg Neuts % (Manual) Lymphocytes % (Manual) Nucleated RBC % Seg Neutrophils # Seg Neutrophils # Man Lymphocytes # (Manual) D-Dimer ABG pH POC ABG pCO2 POC ABG pO2 ABG Oxyhemoglobin ABG Sodium ABG Glucose Carboxyhemoglobin Sodium Potassium Chloride Carbon Dioxide BUN Creatinine Glucose POC Glucose 209 H 226 H 169 H Hemoglobin A1c Calcium Magnesium Ferritin AST ALT Alkaline Phosphatase Lactate Dehydrogenase C-Reactive Protein Total Protein Albumin Arterial Blood Glucose Arterial Blood Ionized Calcium Urine Creatinine Coronavirus (PCR) 12/30/20 12/30/20 12/30/20 07:34 12:17 16:29 WBC RBC MCHC Plt Count Lymph % (Auto) [place] % (Auto) Lymph # (Auto) Seg Neutrophils % Seg Neuts % (Manual) Lymphocytes % (Manual) Nucleated RBC % Seg Neutrophils # Seg Neutrophils # Man Lymphocytes # (Manual) D-Dimer ABG pH POC ABG pCO2 POC ABG pO2 ABG Oxyhemoglobin ABG Sodium ABG Glucose Carboxyhemoglobin Sodium Potassium Chloride Carbon Dioxide BUN Creatinine Glucose POC Glucose 206 H 261 H 229 H Hemoglobin A1c Calcium Magnesium Ferritin AST ALT Alkaline Phosphatase Lactate Dehydrogenase C-Reactive Protein Total Protein Albumin Arterial Blood Glucose Arterial Blood Ionized Calcium Urine Creatinine Coronavirus (PCR) 12/30/20 12/30/20 12/31/20 18:03 23:13 08:43 WBC RBC MCHC Plt Count Lymph % (Auto) [place] % (Auto) Lymph # (Auto) Seg Neutrophils % Seg Neuts % (Manual) Lymphocytes % (Manual) Nucleated RBC % Seg Neutrophils # Seg Neutrophils # Man Lymphocytes # (Manual) D-Dimer ABG pH 7.454 H POC ABG pCO2 49.7 H POC ABG pO2 59.0 L ABG Oxyhemoglobin 88.6 L ABG Sodium 146.4 H ABG Glucose 252 H Carboxyhemoglobin Sodium Potassium Chloride Carbon Dioxide BUN Creatinine Glucose POC Glucose 188 H 191 H Hemoglobin A1c Calcium Magnesium Ferritin AST ALT Alkaline Phosphatase Lactate Dehydrogenase C-Reactive Protein Total Protein Albumin Arterial Blood Glucose 252 H Arterial Blood Ionized Calcium 4.5 L Urine Creatinine Coronavirus (PCR) 12/31/20 12/31/20 12/31/20 11:57 16:57 21:37 WBC RBC MCHC Plt Count Lymph % (Auto) [place] % (Auto) Lymph # (Auto) Seg Neutrophils % Seg Neuts % (Manual) Lymphocytes % (Manual) Nucleated RBC % Seg Neutrophils # Seg Neutrophils # Man Lymphocytes # (Manual) D-Dimer ABG pH POC ABG pCO2 POC ABG pO2 ABG Oxyhemoglobin ABG Sodium ABG Glucose Carboxyhemoglobin Sodium Potassium Chloride Carbon Dioxide BUN Creatinine Glucose POC Glucose 185 H 171 H 136 H Hemoglobin A1c Calcium Magnesium Ferritin AST ALT Alkaline Phosphatase Lactate Dehydrogenase C-Reactive Protein Total Protein Albumin Arterial Blood Glucose Arterial Blood Ionized Calcium Urine Creatinine Coronavirus (PCR) 01/01/21 01/01/21 01/01/21 08:03 11:55 17:06 WBC RBC MCHC Plt Count Lymph % (Auto) [place] % (Auto) Lymph # (Auto) Seg Neutrophils % Seg Neuts % (Manual) Lymphocytes % (Manual) Nucleated RBC % Seg Neutrophils # Seg Neutrophils # Man Lymphocytes # (Manual) D-Dimer ABG pH POC ABG pCO2 POC ABG pO2 ABG Oxyhemoglobin ABG Sodium ABG Glucose Carboxyhemoglobin Sodium Potassium Chloride Carbon Dioxide BUN Creatinine Glucose POC Glucose 160 H 155 H 193 H Hemoglobin A1c Calcium Magnesium Ferritin AST ALT Alkaline Phosphatase Lactate Dehydrogenase C-Reactive Protein Total Protein Albumin Arterial Blood Glucose Arterial Blood Ionized Calcium Urine Creatinine Coronavirus (PCR) 01/01/21 01/02/21 01/02/21 22:20 07:22 11:54 WBC RBC MCHC Plt Count Lymph % (Auto) [place] % (Auto) Lymph # (Auto) Seg Neutrophils % Seg Neuts % (Manual) Lymphocytes % (Manual) Nucleated RBC % Seg Neutrophils # Seg Neutrophils # Man Lymphocytes # (Manual) D-Dimer ABG pH POC ABG pCO2 POC ABG pO2 ABG Oxyhemoglobin ABG Sodium ABG Glucose Carboxyhemoglobin Sodium Potassium Chloride Carbon Dioxide BUN Creatinine Glucose POC Glucose 316 H 274 H 307 H Hemoglobin A1c Calcium Magnesium Ferritin AST ALT Alkaline Phosphatase Lactate Dehydrogenase C-Reactive Protein Total Protein Albumin Arterial Blood Glucose Arterial Blood Ionized Calcium Urine Creatinine Coronavirus (PCR) 01/02/21 01/02/21 01/03/21 16:00 21:20 06:48 WBC RBC MCHC Plt Count Lymph % (Auto) [place] % (Auto) Lymph # (Auto) Seg Neutrophils % Seg Neuts % (Manual) Lymphocytes % (Manual) Nucleated RBC % Seg Neutrophils # Seg Neutrophils # Man Lymphocytes # (Manual) D-Dimer ABG pH POC ABG pCO2 POC ABG pO2 ABG Oxyhemoglobin ABG Sodium ABG Glucose Carboxyhemoglobin Sodium 152 H Potassium Chloride 108.8 H Carbon Dioxide 32 H BUN 64 H Creatinine 1.3 H Glucose 180 H POC Glucose 303 H 263 H Hemoglobin A1c Calcium Magnesium Ferritin AST ALT Alkaline Phosphatase Lactate Dehydrogenase C-Reactive Protein Total Protein Albumin Arterial Blood Glucose Arterial Blood Ionized Calcium Urine Creatinine Coronavirus (PCR) 01/03/21 01/03/21 01/03/21 08:28 11:44 13:59 WBC RBC MCHC Plt Count Lymph % (Auto) [place] % (Auto) Lymph # (Auto) Seg Neutrophils % Seg Neuts % (Manual) Lymphocytes % (Manual) Nucleated RBC % Seg Neutrophils # Seg Neutrophils # Man Lymphocytes # (Manual) D-Dimer ABG pH POC ABG pCO2 POC ABG pO2 ABG Oxyhemoglobin ABG Sodium ABG Glucose Carboxyhemoglobin Sodium Potassium Chloride Carbon Dioxide BUN Creatinine Glucose POC Glucose 203 H 339 H 362 H Hemoglobin A1c Calcium Magnesium Ferritin AST ALT Alkaline Phosphatase Lactate Dehydrogenase C-Reactive Protein Total Protein Albumin Arterial Blood Glucose Arterial Blood Ionized Calcium Urine Creatinine Coronavirus (PCR) 01/03/21 01/03/21 01/03/21 16:00 16:00 16:00 WBC RBC MCHC Plt Count Lymph % (Auto) [place] % (Auto) Lymph # (Auto) Seg Neutrophils % Seg Neuts % (Manual) Lymphocytes % (Manual) Nucleated RBC % Seg Neutrophils # Seg Neutrophils # Man Lymphocytes # (Manual) D-Dimer 1259.33 H ABG pH POC ABG pCO2 POC ABG pO2 ABG Oxyhemoglobin ABG Sodium ABG Glucose Carboxyhemoglobin Sodium Potassium Chloride Carbon Dioxide BUN Creatinine Glucose POC Glucose Hemoglobin A1c Calcium Magnesium Ferritin 1526.0 H AST ALT Alkaline Phosphatase Lactate Dehydrogenase 815 H C-Reactive Protein Total Protein Albumin Arterial Blood Glucose Arterial Blood Ionized Calcium Urine Creatinine Coronavirus (PCR) 01/03/21 01/03/21 01/04/21 18:13 21:23 01:46 WBC RBC MCHC Plt Count Lymph % (Auto) [place] % (Auto) Lymph # (Auto) Seg Neutrophils % Seg Neuts % (Manual) Lymphocytes % (Manual) Nucleated RBC % Seg Neutrophils # Seg Neutrophils # Man Lymphocytes # (Manual) D-Dimer ABG pH POC ABG pCO2 POC ABG pO2 ABG Oxyhemoglobin ABG Sodium ABG Glucose Carboxyhemoglobin Sodium Potassium Chloride Carbon Dioxide BUN Creatinine Glucose POC Glucose 349 H 312 H 264 H Hemoglobin A1c Calcium Magnesium Ferritin AST ALT Alkaline Phosphatase Lactate Dehydrogenase C-Reactive Protein Total Protein Albumin Arterial Blood Glucose Arterial Blood Ionized Calcium Urine Creatinine Coronavirus (PCR) 01/04/21 01/04/21 01/04/21 05:12 05:35 07:36 WBC RBC MCHC Plt Count Lymph % (Auto) [place] % (Auto) Lymph # (Auto) Seg Neutrophils % Seg Neuts % (Manual) Lymphocytes % (Manual) Nucleated RBC % Seg Neutrophils # Seg Neutrophils # Man Lymphocytes # (Manual) D-Dimer ABG pH POC ABG pCO2 POC ABG pO2 ABG Oxyhemoglobin ABG Sodium ABG Glucose Carboxyhemoglobin Sodium 147 H Potassium Chloride Carbon Dioxide 34 H BUN 59 H Creatinine Glucose 208 H POC Glucose 193 H 197 H Hemoglobin A1c Calcium Magnesium 2.60 H Ferritin AST ALT Alkaline Phosphatase Lactate Dehydrogenase C-Reactive Protein Total Protein Albumin Arterial Blood Glucose Arterial Blood Ionized Calcium Urine Creatinine Coronavirus (PCR) 01/04/21 01/04/21 01/04/21 11:00 14:10 18:06 WBC RBC MCHC Plt Count Lymph % (Auto) [place] % (Auto) Lymph # (Auto) Seg Neutrophils % Seg Neuts % (Manual) Lymphocytes % (Manual) Nucleated RBC % Seg Neutrophils # Seg Neutrophils # Man Lymphocytes # (Manual) D-Dimer ABG pH POC ABG pCO2 POC ABG pO2 ABG Oxyhemoglobin ABG Sodium ABG Glucose Carboxyhemoglobin Sodium Potassium Chloride Carbon Dioxide BUN Creatinine Glucose POC Glucose 153 H 173 H 194 H Hemoglobin A1c Calcium Magnesium Ferritin AST ALT Alkaline Phosphatase Lactate Dehydrogenase C-Reactive Protein Total Protein Albumin Arterial Blood Glucose Arterial Blood Ionized Calcium Urine Creatinine Coronavirus (PCR) 01/04/21 01/05/21 01/05/21 21:36 01:38 04:09 WBC RBC MCHC Plt Count Lymph % (Auto) [place] % (Auto) Lymph # (Auto) Seg Neutrophils % Seg Neuts % (Manual) Lymphocytes % (Manual) Nucleated RBC % Seg Neutrophils # Seg Neutrophils # Man Lymphocytes # (Manual) D-Dimer ABG pH POC ABG pCO2 POC ABG pO2 ABG Oxyhemoglobin ABG Sodium ABG Glucose Carboxyhemoglobin Sodium 146 H Potassium Chloride Carbon Dioxide BUN 55 H Creatinine Glucose 241 H POC Glucose 232 H 232 H Hemoglobin A1c Calcium 8.3 L Magnesium 2.70 H Ferritin AST ALT 58 H Alkaline Phosphatase 177 H Lactate Dehydrogenase C-Reactive Protein Total Protein Albumin 2.9 L Arterial Blood Glucose Arterial Blood Ionized Calcium Urine Creatinine Coronavirus (PCR) 01/05/21 01/05/21 01/05/21 05:56 08:22 11:46 WBC RBC MCHC Plt Count Lymph % (Auto) [place] % (Auto) Lymph # (Auto) Seg Neutrophils % Seg Neuts % (Manual) Lymphocytes % (Manual) Nucleated RBC % Seg Neutrophils # Seg Neutrophils # Man Lymphocytes # (Manual) D-Dimer ABG pH POC ABG pCO2 POC ABG pO2 ABG Oxyhemoglobin ABG Sodium ABG Glucose Carboxyhemoglobin Sodium Potassium Chloride Carbon Dioxide BUN Creatinine Glucose POC Glucose 264 H 213 H 144 H Hemoglobin A1c Calcium Magnesium Ferritin AST ALT Alkaline Phosphatase Lactate Dehydrogenase C-Reactive Protein Total Protein Albumin Arterial Blood Glucose Arterial Blood Ionized Calcium Urine Creatinine Coronavirus (PCR) 01/05/21 01/05/21 01/05/21 14:41 15:38 18:41 WBC RBC MCHC Plt Count Lymph % (Auto) [place] % (Auto) Lymph # (Auto) Seg Neutrophils % Seg Neuts % (Manual) Lymphocytes % (Manual) Nucleated RBC % Seg Neutrophils # Seg Neutrophils # Man Lymphocytes # (Manual) D-Dimer ABG pH 7.263 L 7.3 L POC ABG pCO2 50.3 H 60.0 H POC ABG pO2 66.6 L 79.6 L ABG Oxyhemoglobin 87.9 L 92.2 L ABG Sodium 145.8 H ABG Glucose 306 H 353 H Carboxyhemoglobin Sodium Potassium Chloride Carbon Dioxide BUN Creatinine Glucose POC Glucose 307 H Hemoglobin A1c Calcium Magnesium Ferritin AST ALT Alkaline Phosphatase Lactate Dehydrogenase C-Reactive Protein Total Protein Albumin Arterial Blood Glucose 306 H 353 H Arterial Blood Ionized Calcium 4.4 L Urine Creatinine Coronavirus (PCR) 01/05/21 01/06/21 01/06/21 21:16 01:31 04:45 WBC RBC MCHC Plt Count Lymph % (Auto) [place] % (Auto) Lymph # (Auto) Seg Neutrophils % Seg Neuts % (Manual) Lymphocytes % (Manual) Nucleated RBC % Seg Neutrophils # Seg Neutrophils # Man Lymphocytes # (Manual) D-Dimer ABG pH 7.237 L POC ABG pCO2 68.9 H POC ABG pO2 ABG Oxyhemoglobin 93.2 L ABG Sodium 145.4 H ABG Glucose 152 H Carboxyhemoglobin 1.6 H Sodium Potassium Chloride Carbon Dioxide BUN Creatinine Glucose POC Glucose 256 H 195 H Hemoglobin A1c Calcium Magnesium Ferritin AST ALT Alkaline Phosphatase Lactate Dehydrogenase C-Reactive Protein Total Protein Albumin Arterial Blood Glucose 152 H Arterial Blood Ionized Calcium Urine Creatinine Coronavirus (PCR) 01/06/21 05:26 WBC RBC MCHC Plt Count Lymph % (Auto) [place] % (Auto) Lymph # (Auto) Seg Neutrophils % Seg Neuts % (Manual) Lymphocytes % (Manual) Nucleated RBC % Seg Neutrophils # Seg Neutrophils # Man Lymphocytes # (Manual) D-Dimer ABG pH POC ABG pCO2 POC ABG pO2 ABG Oxyhemoglobin ABG Sodium ABG Glucose Carboxyhemoglobin Sodium Potassium Chloride Carbon Dioxide BUN Creatinine Glucose POC Glucose 138 H Hemoglobin A1c Calcium Magnesium Ferritin AST ALT Alkaline Phosphatase Lactate Dehydrogenase C-Reactive Protein Total Protein Albumin Arterial Blood Glucose Arterial Blood Ionized Calcium Urine Creatinine Coronavirus (PCR)
[2021-01-06] MEDS: amLODIPine 10 MG TAB PO SCH (10:02)
[2021-01-06] MEDS: GABAPENTIN 400 MG CAP PO SCH ×2 (10:02→21:51)
[2021-01-06] MEDS: AYR SALINE NASAL GEL 14.1 GM NS SCH ×2 (10:03→21:52)
[2021-01-06] MEDS: methylPREDNISolone Sod Suc 1,000 MG in SODIUM CHLORIDE 0.9% 250ML 250 ML IV SCH (10:45)
[2021-01-06] MEDS: DEXTROSE 5% IN WATER 1,000 ML IV SCH (10:46)
[2021-01-06] MEDS ORDERED: LACTATED RINGERS 500 ML IV ONE (14:10)
--- NOTE | 2021-01-06 15:10 | XRay Report ---
CHEST 1 VIEW INDICATION / CLINICAL INFORMATION: change in status. COMPARISON: 01/05/2021 at 1424 hours FINDINGS: SUPPORT DEVICES: Endotracheal tube, nasogastric tube HEART / MEDIASTINUM: No significant abnormality. LUNGS / PLEURA: Diffuse bilateral airspace disease, subcutaneous emphysema unchanged. Small bilateral apical pneumothorax unchanged ADDITIONAL FINDINGS: No significant additional findings. IMPRESSION: No change from the prior examination a few minutes earlier Signer Name: Cortes Bailey MD FACR Signed: 01/06/2021 3:05 PM Workstation Name: [id number]
[2021-01-06 15:14] LABS: Hematocrit 43.8 % (30.3-42.9); Hemoglobin 14.2 gm/dl (10.1-14.3); Mean Corpuscular HGB Conc 32 % (30-34); Mean Corpuscular Volume 99 fl (79-97); Red Blood Count 4.45 M/mm3 (3.65-5.03); Red Cell Distribution Width 14.4 % (13.2-15.2)
[2021-01-06 15:31] LABS: Albumin 2.9 g/dL (3.9-5); Calcium 8.4 mg/dL (8.4-10.2)
[2021-01-06 16:18] LABS: Total Cells Counted 100
[2021-01-06 16:19] LABS: Platelet Clumps Rare; RBC Morphology Normal
[2021-01-06 16:20] LABS: Stomatocytes Rare
[2021-01-06] MEDS ORDERED: SODIUM BICARB 8.4% 50 MEQ/50 ML SYRINGE IV ONE (18:39)
[2021-01-06] MEDS: SODIUM BICARBONATE 150 MEQ in DEXTROSE 5% IN WATER 1,000 ML IV SCH (19:52)
[2021-01-06] MEDS: ENOXAPARIN 40 MG/0.4 ML INJ SUB-Q SCH (21:52)
[2021-01-07] MEDS: INSULIN LISPRO 100 UNIT/ML SUB-Q SCH ×7 (00:02→23:53)
[2021-01-07] MEDS: SODIUM BICARBONATE 150 MEQ in DEXTROSE 5% IN WATER 1,000 ML IV SCH ×2 (02:17→08:48)
--- NOTE | 2021-01-07 04:00 | XRay Report ---
CHEST 1 VIEW 0301 INDICATION / CLINICAL INFORMATION: Concerned for worsening pneumo COMPARISON: 01/06/2021 FINDINGS: SUPPORT DEVICES: Stable HEART / MEDIASTINUM: Stable LUNGS / PLEURA: Extensive bilateral pulmonary infiltrates are again noted which appear worse on the r ight but mildly improved in the left. There probably are still minimal bilateral apical pneumothorace s. No pneumothorax. ADDITIONAL FINDINGS: Extensive and prominent subcutaneous emphysema is seen bilaterally again. Lucency is seen under the right hemidiaphragm and possibly under the left hemidiaphragm which was not clearly present previously. This is of concern for small pneumoperitoneum in this upright view. CRITICAL RESULT: Time of Discovery (PROPERTY INSURANCE INSPECTOR/CDT): 0250 Time of Communication (PROPERTY INSURANCE INSPECTOR/CDT): 251 Licensed Practitioner Receiving Report: ICU nurse Mark Read-Back Performed: Yes. Signer Name: Jean Chirinos MD Signed: 01/07/2021 3:56 AM Workstation Name: [id number]
[2021-01-07 04:13] LABS: Platelet Count 214 K/mm3 (140-440)
--- NOTE | 2021-01-07 04:23 | Event Note ---
Date: 01/07/21 5 y/o -[place] female patient past medical history of ILD on CT scan[per [facility] records] was admitted with worsening shortness of breath noted to have severe COVID-19 pneumonia Chest x-ray shows extensive and prominent subcutaneous emphysema is seen bilaterally again also patient has a small pneumoperitoneum. Surgery is consulted for evaluation also critical care is informed
--- NOTE | 2021-01-07 07:19 | Consultation ---
History of Present Illness Consult date: 01/07/21 Chief complaint: Pneumoperitoneum, pneumothorax - History of present illness History of present illness: 55-year-old female with a past medical history of morbid obesity, diabetes, asthma with recent diagnosis of interstitial lung disease at outside hospital who presented to the emergency room on 12/21/2020 with shortness of breath, cough, chills x1 week. Patient is currently intubated and sedated on the ventilator. All of the history is gathered from the chart. Patient was diagnosed with Covid pneumonia upon admission and being treated appropriately. She was started on steroids. She was maintained on BiPAP for several days during this admission until her respiratory status decompensated. She was moved to the ICU on 01/04/2021 for intensive monitoring of respiratory status. The patient was intubated on 01/05/2021 due to acute respiratory decompensation. On chest x-ray the patient was seen to have small bilateral apical pneumothoraces. After intubation the patient required high PEEP at 20 and FiO2 100% in order to maintain saturation. The patient developed subcutaneous emphysema which has worsened over the last 48 hours. In addition to this she is seen to have pneumomediastinum and concerns on chest x-ray for pneumoperitoneum. Patient has been tolerating trophic tube feeds without vomiting or high residuals. Patient is afebrile. Surgery consulted for evaluation. Past History Past Medical History: diabetes, hypertension, other (Asthma,Diabetic Neuropathy, morbid obesity) Past Surgical History: hysterectomy, Other (Left Wrist surgery 11/2014) Social history: no significant social history Family history: no significant family history Medications and Allergies Allergies Allergy/AdvReac Type Severity Reaction Status Date / Time No Known Allergies Allergy Verified 12/29/14 22:38 Home Medications Medication Instructions Recorded Confirmed Last Taken Type Cyclobenzaprine [Flexeril 10 MG 10 mg PO QHS PRN 12/21/20 12/21/20 Unknown History TAB] Gabapentin [Neurontin] 800 mg PO TID 12/21/20 12/21/20 12/20/20 History metFORMIN [Glucophage] 1,000 mg PO BID 12/21/20 12/21/20 12/20/20 History traMADoL [Ultram 50 MG tab] 50 mg PO BID PRN MDD 100 12/21/20 12/21/20 Unknown History Levothyroxine 137 mcg PO QDAY 12/26/20 12/26/20 12/20/20 08:00 History Active Meds: Active Medications Acetaminophen (Acetaminophen 325 Mg Tab) 650 mg PO Q4H PRN PRN Reason: Pain MILD(1-3)/Fever >100.5/VARGAS Last Admin: 12/24/20 09:40 Dose: 650 mg Documented by: Albuterol (Albuterol 2.5 Mg/3 Ml Nebu) 2.5 mg IH Q4HRT PRN PRN Reason: Shortness Of Breath Amlodipine Besylate (Amlodipine 10 Mg Tab) 10 mg PO QDAY [facility] Last Admin: 01/06/21 10:02 Dose: 10 mg Documented by: Lipase/Protease/Amylase (Lipase 10,500/Protease 25,000/Amylase 43,750 (Units) Dr Giron) 1 each FEEDTUBE PRN PRN PRN Reason: For Clogged Feeding Tube Dextrose (Dextrose 50% In Water (25gm) 50 Ml Syringe) 50 ml IV Q30MIN PRN; Protocol PRN Reason: Hypoglycemia Enoxaparin Sodium (Enoxaparin 40 Mg/0.4 Ml Inj) 40 mg SUB-Q QDAY@2200 [place]; Protocol Last Admin: 01/06/21 21:52 Dose: 40 mg Documented by: Fentanyl (Fentanyl 100 Mcg/2 Ml Inj) 50 mcg IV Q10MIN PRN PRN Reason: ANALGESIA Gabapentin (Gabapentin 400 Mg Cap) 800 mg PO BID [facility] Last Admin: 01/06/21 21:51 Dose: 800 mg Documented by: Guaifenesin (Guaifenesin 100 Mg/5 Ml Oral Liqd) 200 mg PO Q4H PRN PRN Reason: Cough Last Admin: 01/02/21 21:10 Dose: 200 mg Documented by: Hydralazine HCl (Hydralazine 20 Mg/1 Ml Inj) 10 mg IV Q6H PRN PRN Reason: SBP >/=160; DBP >/=100 Last Admin: 01/06/21 04:59 Dose: 10 mg Documented by: Dexmedetomidine HCl 400 mcg/ (Sodium Chloride) 104 mls @ 6.952 mls/hr IV TITRATE [facility]; Protocol Last Titration: 01/05/21 16:05 Dose: Infused Documented by: Propofol (Diprivan 10 Mg/Ml) 1,000 mg in 100 mls @ 3.882 mls/hr IV TITR [facility]; Protocol Last Admin: 01/07/21 02:16 Dose: 10 mcg/kg/min, 7.764 mls/hr Documented by: Fentanyl Citrate (Fentanyl Drip Premix) 2,000 mcg in 100 mls @ 6.47 mls/hr IV TITR [facility]; Protocol Sodium Bicarbonate 150 meq/ (Dextrose) 1,150 mls @ 200 mls/hr IV DIRECT [facility] Last Admin: 01/07/21 02:17 Dose: 200 mls/hr Documented by: Insulin Human Isoph/Insulin Regular (Insulin Nph/Regular 70/30 Inj) 40 unit SUB-Q BIDDIAB [place] Last Admin: 01/06/21 18:30 Dose: 40 unit Documented by: Insulin Human Lispro (Insulin Lispro 100 Unit/Ml) 0 unit SUB-Q Q4H [facility]; Protocol Last Admin: 01/07/21 03:35 Dose: 10 unit Documented by: Lorazepam (Lorazepam 2 Mg/Ml Vial) 0.5 mg IV Q6H PRN PRN Reason: Anxiety Last Admin: 01/05/21 12:27 Dose: 0.5 mg Documented by: Magnesium Hydroxide (Magnesium Hydroxide (Mom) Oral Liqd Udc) 30 ml PO Q4H PRN PRN Reason: Constipation Morphine Sulfate (Morphine 2 Mg/1 Ml Inj) 2 mg IV Q4H PRN PRN Reason: Pain, Moderate (4-6) Last Admin: 01/03/21 06:38 Dose: 2 mg Documented by: Ondansetron HCl (Ondansetron 4 Mg/2 Ml Inj) 4 mg IV Q8H PRN PRN Reason: Nausea And Vomiting Simple Syrup (Simple Syrup 15 Ml) 15 ml FEEDTUBE PRN PRN PRN Reason: Hypoglycemia Simple Syrup (Simple Syrup 15 Ml) 30 ml FEEDTUBE PRN PRN PRN Reason: Hypoglycemia Sodium Bicarbonate (Sodium Bicarbonate 325 Mg Tab) 325 mg FEEDTUBE PRN PRN PRN Reason: For Clogged Feeding Tube Sodium Chloride (Sodium Chloride 0.9% 10 Ml Flush Syringe) 10 ml IV BID [place] Last Admin: 01/06/21 21:53 Dose: 10 ml Documented by: Sodium Chloride (Sodium Chloride 0.9% 10 Ml Flush Syringe) 10 ml IV PRN PRN PRN Reason: LINE FLUSH Last Admin: 12/21/20 18:48 Dose: 10 ml Documented by: Sodium Chloride (Sidney Saline Nasal Gel 14.1 Gm) 1 applic NS BID [facility] Last Admin: 01/06/21 21:52 Dose: 1 applic Documented by: Review of Systems ROS unobtainable: due to endotracheal tube Exam Vital Signs Temp Pulse Resp BP 100.6 F H 107 H 20 105/53 12/20/20 19:16 12/20/20 19:16 12/20/20 19:16 12/20/20 19:16 Narrative exam: Gen.: Intubated, sedated. Does not appear to be in distress. ENT: Trachea midline. ET tube and NG tube in place. NG tube placed to low intermittent wall suction with scant bilious drainage. Significant subcutaneous emphysema involving the face and neck. CV: S1, S2 present. Tachycardia Respiratory: Bilateral chest, diffuse subcutaneous emphysema. Abdomen: Soft, nondistended, nontender, obese. No rebound, rigidity, guarding Extremities: Generalized edema Results - Labs 01/06/21 14:49 01/06/21 14:49 Abnormal lab results 01/06/21 01/06/21 01/06/21 Range/Units 14:49 14:49 17:25 WBC 34.5 H (4.5-11.0) K/mm3 Hct 43.8 H (30.3-42.9) % MCV 99 H (79-97) fl Seg Neuts % (Manual) 93.0 H (40.0-70.0) % Lymphocytes % (Manual) 4.0 L (13.4-35.0) % Seg Neutrophils # Man 32.1 H (1.8-7.7) K/mm3 Monocytes # (Manual) 1.0 H (0.0-0.8) K/mm3 ABG pH (7.320-7.450) POC ABG pCO2 (32.0-48.0) mmHg POC ABG pO2 (83-108) mmHg ABG Oxyhemoglobin (94-98) ABG Potassium (3.40-4.50) mmol/L ABG Glucose (65-95) mg/dL Carbon Dioxide 20 L D (22-30) mmol/L BUN 70 H (7-17) mg/dL Creatinine 3.2 H D (0.6-1.2) mg/dL Glucose 108 H (65-100) mg/dL POC Glucose 165 H (70-105) mg/dL Phosphorus 7.70 H D (2.5-4.5) mg/dL Magnesium 2.60 H (1.7-2.3) mg/dL AST 94 H (5-40) units/L ALT 103 H (7-56) units/L Alkaline Phosphatase 220 H (35-129) units/L Albumin 2.9 L (3.9-5) g/dL Arterial Blood Glucose (65-95) mg/dL Arterial Blood Ionized Calcium (4.6-5.3) mg/dL 01/06/21 01/06/21 01/06/21 Range/Units 17:41 19:50 23:17 WBC (4.5-11.0) K/mm3 Hct (30.3-42.9) % MCV (79-97) fl Seg Neuts % (Manual) (40.0-70.0) % Lymphocytes % (Manual) (13.4-35.0) % Seg Neutrophils # Man (1.8-7.7) K/mm3 Monocytes # (Manual) (0.0-0.8) K/mm3 ABG pH 7.079 L (7.320-7.450) POC ABG pCO2 93.7 H (32.0-48.0) mmHg POC ABG pO2 79.3 L (83-108) mmHg ABG Oxyhemoglobin 92.1 L (94-98) ABG Potassium 4.8 H (3.40-4.50) mmol/L ABG Glucose 196 H (65-95) mg/dL Carbon Dioxide (22-30) mmol/L BUN (7-17) mg/dL Creatinine (0.6-1.2) mg/dL Glucose (65-100) mg/dL POC Glucose 216 H 326 H (70-105) mg/dL Phosphorus (2.5-4.5) mg/dL Magnesium (1.7-2.3) mg/dL AST (5-40) units/L ALT (7-56) units/L Alkaline Phosphatase (35-129) units/L Albumin (3.9-5) g/dL Arterial Blood Glucose 196 H (65-95) mg/dL Arterial Blood Ionized Calcium 4.4 L (4.6-5.3) mg/dL Diabetes panel 01/06/21 Range/Units 14:49 Sodium 141 (137-145) mmol/L Potassium 5.0 D (3.6-5.0) mmol/L Chloride 102.1 (98-107) mmol/L Carbon Dioxide 20 L D (22-30) mmol/L BUN 70 H (7-17) mg/dL Creatinine 3.2 H D (0.6-1.2) mg/dL Glucose 108 H (65-100) mg/dL Calcium 8.4 (8.4-10.2) mg/dL AST 94 H (5-40) units/L ALT 103 H (7-56) units/L Alkaline Phosphatase 220 H (35-129) units/L Total Protein 6.4 (6.3-8.2) g/dL Albumin 2.9 L (3.9-5) g/dL Calcium panel 01/06/21 Range/Units 14:49 Calcium 8.4 (8.4-10.2) mg/dL Phosphorus 7.70 H D (2.5-4.5) mg/dL Albumin 2.9 L (3.9-5) g/dL Pituitary panel 01/06/21 Range/Units 14:49 Sodium 141 (137-145) mmol/L Potassium 5.0 D (3.6-5.0) mmol/L Chloride 102.1 (98-107) mmol/L Carbon Dioxide 20 L D (22-30) mmol/L BUN 70 H (7-17) mg/dL Creatinine 3.2 H D (0.6-1.2) mg/dL Glucose 108 H (65-100) mg/dL Calcium 8.4 (8.4-10.2) mg/dL Adrenal panel 01/06/21 Range/Units 14:49 Sodium 141 (137-145) mmol/L Potassium 5.0 D (3.6-5.0) mmol/L Chloride 102.1 (98-107) mmol/L Carbon Dioxide 20 L D (22-30) mmol/L BUN 70 H (7-17) mg/dL Creatinine 3.2 H D (0.6-1.2) mg/dL Glucose 108 H (65-100) mg/dL Calcium 8.4 (8.4-10.2) mg/dL Total Bilirubin 1.10 (0.1-1.2) mg/dL AST 94 H (5-40) units/L ALT 103 H (7-56) units/L Alkaline Phosphatase 220 H (35-129) units/L Total Protein 6.4 (6.3-8.2) g/dL Albumin 2.9 L (3.9-5) g/dL - Imaging Chest x-ray: report reviewed, image reviewed Abdominal x-ray: report reviewed, image reviewed Assessment and Plan 55 yo F with 1. B/L PTX, pneumomediastinum 2. ?Pneumoperitoneum on CXR 3. severe COVID PNA 4. VDRF 5. Interstitial lung disease All CXRs this admission reviewed - patient with worsening subcutaneous emphysema, pneumomediastinum and b/l small PTX since intubation on 01/05/21. Pt on FIO2 100% and PEEP 20. Pt in critical condition. "Pneumoperitoneum" on CXR likely an artifact from worsening pneumomediastinum from PTX and unlikely from spontaneous perforated viscus. Patient's abdomen is soft, ND and she has been paul TTF. Plan: 1. Vent management per ICU team 2. Recommend placement of bilateral chest tubes for b/l PTX - discussed with wilmar Scott [phone]. Explained procedure and indication, he has given consent. Placement will be challenging given the extent of subcutaneous emphysema and patient's body habitus. 3. CT A/P ordered but patient's resp status is unstable and unable to perform at this time. Will continue to monitor abdominal exam. Patient is an extremely high risk candidate for any abdominal surgery due to unstable condition. 4. Daily CXRs 5. Stop TF, Start NGT to LIWS 6. Chest tubes will be placed to -[id number] suction Very guarded prognosis. Discussed with Dr. Silver Thank you for this consultation. Please call with any questions or concerns. Evaluation and treatment of this patient was during the time of the national and state emergency arising from COVID19 coronavirus pandemic. Treatment and procedures performed meet the current and available best practice and guidelines for patient during the COVID pandemic.
--- NOTE | 2021-01-07 09:00 | Procedure Note ---
Date of procedure: 01/07/21 Pre-op diagnosis: bilateral pneumothorax Post-op diagnosis: same Procedure: bilateral chest tube placement Findings: HPI and indication: Patient is a 55-year-old female with a history of interstitial lung disease, currently being treated for severe Covid pneumonia. The patient was on BiPAP for several days and her respiratory status decompensated. She was intubated on 01/05/2021 and has remained on high PEEP at 20 and FiO2 of 100% to maintain saturation. Patient was seen to have small apical pneumothoraces on chest x-ray with subsequent chest x-ray showing worsening of subcutaneous emphysema and pneumomediastinum. There was also question of possible pneumoperitoneum on most recent chest x-ray on 12/31/2020. It was recommended that the patient undergo bilateral chest tube placement. All risk, benefits, alternatives to the procedures were discussed with the patient's son/SYL Scott. Questions were answered and consent obtained and witnessed. Procedure in detail: Time out performed with RN at bedside for entirety of procedure. I first started with the right side. The right arm was abducted and secured. The patient had very pendulous breasts and so the right breast was taped in order to retract it laterally out of the field. The rib spaces were palpated with great difficulty as the patient is morbidly obese and with severe subcutaneous emphysema. A location was chosen in the midaxillary line in the area of the fourth and fifth intercostal spaces and marked. The right lateral chest wall was prepped with Betadine and draped in usual sterile fashion. Local anesthetic was infiltrated into the skin at the intended incision site. Using a 15 blade, a 3 cm transverse incision was made. Dissection was carried down through the skin and subcutaneous tissue using blunt dissection with a [place] clamp until the rib was palpated. The rib spaces were extremely deep at least 7 cm from the skin. Once the rib was palpated the finder needle was inserted above the rib into the intercostal space and air drawn back into the syringe. The pleural space was infiltrated with local anesthetic. Using the [place] clamp dissection was carried out over the rib through the fourth intercostal rib space by gently spreading. Once the pleural space was entered, a pop was felt and there was a small moreno of air. A 28 [place] chest tube was inserted through the space and directed superiorly. This was extremely difficult due to the patient's body habitus. The chest tube was advanced to approximately 8 cm and then met with resistance. All holes of the chest tube were felt to be within the thoracic cavity. The chest tube was connected to -20 cm H2O suction via Pleur-evac and there was no air leak seen. The chest tube was secured to the skin using a 0 silk U stitch. A small gap in the skin was approximated using an 0 silk interrupted stitch. An occlusive dressing was applied and the chest tube secured to the chest in the usual fashion. I then proceeded to place a left-sided chest tube. This was done in the exact same fashion as the right side. The placement was equally challenging due to the patient's body habitus and extent of subcutaneous emphysema. Upon entering the thoracic cavity there was a pop and a large moreno of air. A 28F chest tube was inserted into the pleural space and advanced towards the apex to approximately 10 cm. Chest tube was connected to -20 cm H2O suction via Pleur- evac and there was an expiratory air leak. The chest tube was sutured to the skin in the same fashion to the right side and an occlusive dressing applied. The patient tolerated the procedures well. There was no desaturation or decompensation of the patient's condition. All sharps were disposed of appropriately. Patient's son was updated. Post procedure CXR performed. Images and report reviewed independently. There is massive bilateral subcutaneous chest wall emphysema. Bilateral chest tubes in place. No significant residual pneumothorax. No pneumoperitoneum seen. Implants: 28F chest tube bilateral Anesthesia: local Surgeon: JAYEDN RAMÍREZ Estimated blood loss: minimal Pathology: none Condition: critical Disposition: no change
--- NOTE | 2021-01-07 09:21 | XRay Report ---
CHEST 1 VIEW 0908 hours INDICATION: bilat chest tube placement. COMPARISON: Earlier today at 0301 hours FINDINGS: Support devices: Endotracheal tube and nasogastric tube remain in good position. A right chest tube h as been inserted which terminates near the right hilum. A left chest tube has been inserted which ter minates near the left apex. Heart: Within normal limits. Lungs/Pleura: Diffuse bilateral lung opacities are suggested. No consolidation, pleural effusion or p neumothorax. Additional findings: Severe subcutaneous emphysema throughout the chest wall is unchanged. IMPRESSION: Bilateral chest tube placement as described with no evidence for significant pneumothorax. Signer Name: Ilya Hilton Jr, MD Signed: 01/07/2021 9:17 AM Workstation Name: [id number]
[2021-01-07] MEDS: INSULIN NPH/REGULAR 70/30 INJ SUB-Q SCH ×2 (09:40→16:24)
[2021-01-07] MEDS ORDERED: FAMOTIDINE 20 MG TAB PO SCH (10:00)
[2021-01-07] MEDS: amLODIPine 10 MG TAB PO SCH (10:12)
[2021-01-07] MEDS: AYR SALINE NASAL GEL 14.1 GM NS SCH (10:13)
[2021-01-07] MEDS ORDERED: INSULIN NPH/REGULAR 70/30 INJ SUB-Q ONE ×2 (11:00→15:31)
--- NOTE | 2021-01-07 11:13 | Progress Note ---
Assessment and Plan Assessment and plan: --COVID-19 test positive on 12/21/2020 Patient was intubated on ventilatory support on 01/05/2021 due to severe hypoxemic respiratory failure --Bilateral pneumothorax; s/p bilateral chest tube placements today per surgery Continue supportive care, surgery and pulmonary following --Subcutaneous emphysema/small pneumoperitoneum Supportive care --Hypotension/shock; IV fluids, Levophed titrate per protocol Closely monitor, hold antihypertensive medications --Acute hypoxic respiratory failure; intubated continue ventilatory support, Pulmonary critical following Due to severe COVID-19 infection,h/o ILD Obesity hypoventilation syndrome . --History of interstitial lung disease[ILD]; on [facility] scan at [facility] Received pulse steroids total 3 dose ,Follow blood sugars --Sepsis due to COVID-19 pneumonia Procalcitonin low, no need for antibiotics --Severe, COVID-19 infection;Guarded prognosis Completed remdesivir, Received Tocilizumab Continue IV steroids per pulmonary Monitor inflammatory markers Prone positioning as tolerated Home oxygen evaluation prior to discharge --Diabetes mellitus type 2; uncontrolled,A1c 10.3 Accu-Chek sliding scale coverage ADA diet Patient has pneumoperitoneum, tube feeding stopped We will decrease 70/30 insulin dose to 20 mg subcu twice daily Closely monitor blood sugars --Elevated D-dimers; due to COVID-19 Negative PE, negative DVT --Hyponatremia; dehydration, poor oral intake Advised plenty free water as tolerated --Acute kidney injury; vasomotor nephropathy Secondary to dehydration, gentle hydration, free water as needed --Morbid obesity; BMI 46.2 Patient needs weight reduction when medically stable --OHS/JERMAINE; due to morbid obesity Patient needs outpatient sleep study to rule out JERMAINE CPAP/BiPAP at night and as needed --Elevated LFTs probably Covid related; Present on admission, resolved . --DVT prophylaxis; Lovenox Closely monitor the patient and adjust the management as needed Pl[employer] Heat [employer]der recommendations noted and appreciated Plan of care reviewed with the patient and her nurse Patient is critically ill with guarded prognosis Patient and family aware The high probability of a clinically significant, sudden or life threatening deterioration of the [multi] system(s) required my full and direct attention, intervention and personal management. The aggregate critical care time was [40] minutes. This time is in addition to time spent performing reported procedures but includes the following: [x] Data Review and interpretation [x] Patient assessment and monitoring of vital signs [x] Documentation [x] Medication orders and management Brief history and daily patient care; Morbidly obese 55 y/o -[place] female patient past medical history of ILD on CT scan[per [facility] records] was admitted with worsening shortness of breath noted to have severe COVID-19 pneumonia. With acute hypoxic respiratory failure, high flow nasal oxygen and BiPAP dependent. ID pulmonary following 12/21/2020. Follow-up COVID-19 testing. Continue to trend inflammatory markers. Continue dexamethasone. ID and pulmonary consultation pending. Patient currently with 6 L/min O2 FiO2 44%. 12/22/2020. COVID-19 testing found to be positive. Continue to trend inflammatory markers. Continue dexamethasone. Patient requiring more oxygen with high flow nasal cannula 30 L/min and FiO2 100%. ID and pulmonary following. 12/23/2020. Patient with increasing oxygen requirements with high flow nasal cannula 40 L/min with FiO2 100%. Continue dexamethasone per ID recommendations. We will transfer to IM for closer monitoring. 12/24/2020. Patient was transferred to IMCU for closer monitoring yesterday. Patient currently requiring BiPAP with IPAP 16 and EPAP of 8 with FiO2 100%. Continue dexamethasone and remdesivir. Continue to trend inflammatory markers. Continue anticoagulation. Prone position as possible. Continue ceftriaxone and azithromycin per ID recommendations. 12/25/2020. Patient currently requiring BiPAP with IPAP 16 and EPAP of 8 with FiO2 100%. Continue IV steroids of Solu-Medrol 60 mg every 8 hour and remdesivir. Continue to trend inflammatory markers. Continue anticoagulation with Lovenox. Prone position as possible. Continue ceftriaxone and azithromycin per ID recommendations. Prognosis is guarded. 12/26/2020 BG not controlled with glipizide. Start Lantus at bedtime for BG control. Elevated BG likely secondary to IV steroid. Patient currently requiring BiPAP with IPAP 18 and EPAP of 10 with FiO2 100%. Continue IV steroids of Solu-Medrol 60 mg every 8 hour and remdesivir. Continue to trend inflammatory markers. Continue anticoagulation with Lovenox. Prone position as possible. Continue ceftriaxone and azithromycin per ID recommendations. Prognosis is guarded. 12/27/2020. Blood glucose is improved but not optimal. Therefore, increase Lantus to 14 units at bedtime. Elevated BG likely secondary to IV steroid. Patient currently requiring BiPAP with IPAP 18 and EPAP of 10 with FiO2 100%. Continue IV steroids of Solu-Medrol 60 mg every 8 hour and remdesivir. Continue to trend inflammatory markers. Continue anticoagulation with Lovenox. Prone po sition as possible. Continue ceftriaxone and azithromycin per ID recommendations. Prognosis is guarded. 12/28/2020; patient's blood sugars are uncontrolled, secondary to noncompliance, partly due to high-dose steroids Patient remains hypoxic on continuous BiPAP Switch to 70/30 Novolin 20 units twice a day adjust as needed Patient's A1c 10.3, diabetic education nutrition education 12/29/2020; patient continues to be hypoxemic requiring continuous BiPAP Worsening D-dimers, CTA negative for PE, venous Doppler negative DVT 12/30/2020; patient continues to require continuous BiPAP Wean as tolerated, patient is critically ill with poor prognosis Plastics Heat Welder recommendations noted and appreciated 12/31/2020; patient is on BiPAP Wean as tolerated, continue nebulizers IV steroids And other supportive care Pulmonary and ID recommendations noted and appreciated 01/01/2021; patient on continuous BiPAP 100% FiO2 Did not tolerate high flow nasal cannula 40 L 01/02/2021; patient briefly tolerated HFNC O2 Try to give Ensure intermittently if possible If unsuccessful will consider TPN 01/03/2021; patient is on high flow oxygen and BiPAP as needed Patient is tolerating nutrition supplements and diet in between Acute kidney injury with creatinine 1.3, hypernatremia Secondary to dehydration, encourage plenty free water 01/04/2021; blood sugars moderate control, increase 70/30 insulin to 34 units twice a day on continuous BiPAP, TPN started per critical care unit manager Mild hypotension, fluid boluses, consider 01/05/2021; patient is on continuous BiPAP In severe respiratory distress Started on pulse dose steroids second dose today 01/06/2021; Patient was in severe respiratory failure requiring intubation ventilatory support yesterday Blood sugar slightly high, insulin dose increased to 40 units Novolin 70/30 twice a day Restraints in place, closely monitor 01/07/2021; patient is critically ill with very poor prognosis, family aware Continue current management, investigations consultant recommendations noted and appreciated Very poor prognosis, family aware History Interval history: I have seen and examined the patient at the bedside in ICU, patient's chart and medications reviewed Patient is intubated on ventilatory support, developed acute shortness of breath bilateral pneumothorax Surgery evaluated and placed bilaterally chest tubes, also has extensive cervantes rgical emphysema Severely hypotensive, critically ill with poor prognosis, will start Levophed Vital signs noted Hospitalist Physical - Constitutional Vitals: Temp Pulse Resp BP Pulse Ox 100 F H 109 H 28 H 89/45 99 01/07/21 10:19 01/07/21 11:00 01/07/21 11:00 01/07/21 11:00 01/07/21 11:00 General appearance: Present: severe distress, well-nourished, obese (Morbidly obese), other (Intubated on ventilatory support, subcutaneous emphysema,) - EENT Eyes: Present: PERRL, EOM intact - Neck Neck: Present: supple, normal ROM, other (ET tube and Dobbhoff in place) - Respiratory Respiratory effort: labored Respiratory: bilateral: diminished, rhonchi, other (Subcutaneous emphysema), negative: rales - Cardiovascular Rhythm: regular Heart Sounds: Present: S1 & S2 - Extremities Extremities: no ischemia, abnormal (Obese) Extremity abnormal: edema - Abdominal General gastrointestinal: soft, non-tender, non-distended - Integumentary Integumentary: Present: clear, warm - Psychiatric Psychiatric: appropriate mood/affect, cooperative - Neurologic Neurologic: moves all extremities HEART Score - HEART Score Troponin: Troponin T < 0.010 ng/mL (0.00-0.029) 12/20/20 19:27 Results - Labs CBC & Chem 7: 01/06/21 14:49 01/06/21 14:49 Labs: Laboratory Last Values WBC 34.5 K/mm3 (4.5-11.0) H 01/06/21 14:49 RBC 4.45 M/mm3 (3.65-5.03) 01/06/21 14:49 Hgb 14.2 gm/dl (10.1-14.3) 01/06/21 14:49 Hct 43.8 % (30.3-42.9) H 01/06/21 14:49 MCV 99 fl (79-97) H 01/06/21 14:49 MCH 32 pg (28-32) 01/06/21 14:49 MCHC 32 % (30-34) 01/06/21 14:49 RDW 14.4 % (13.2-15.2) 01/06/21 14:49 Plt Count 214 K/mm3 (140-440) 01/06/21 14:49 Lymph % (Auto) [place] Sheller 01/06/21 14:49 [place] % (Auto) [place] Sheller 01/06/21 14:49 Eos % (Auto) [place] 01/06/21 14:49 Baso % (Auto) [place] 01/06/21 14:49 Lymph # (Auto) [place] 01/06/21 14:49 [place] # (Auto) Nut Sheller 01/06/21 14:49 Eos # (Auto) [place]ller 01/06/21 14:49 Baso # (Auto) [place] 01/06/21 14:49 Add Manual Diff Complete 01/06/21 14:49 Total Counted 100 01/06/21 14:49 Seg Neutrophils % Nut Sheller 01/06/21 14:49 Seg Neuts % (Manual) 93.0 % (40.0-70.0) H 01/06/21 14:49 Band Neutrophils % 4.0 % 12/23/20 14:09 Lymphocytes % (Manual) 4.0 % (13.4-35.0) L 01/06/21 14:49 Reactive Lymphs % (Man) 1.0 % 12/23/20 14:09 Monocytes % (Manual) 3.0 % (0.0-7.3) 01/06/21 14:49 Nucleated RBC % Not Reportable 01/06/21 14:49 Seg Neutrophils # Nut Sheller 01/06/21 14:49 Seg Neutrophils # Man 32.1 K/mm3 (1.8-7.7) H 01/06/21 14:49 Band Neutrophils # 0.0 K/mm3 01/06/21 14:49 Lymphocytes # (Manual) 1.4 K/mm3 (1.2-5.4) 01/06/21 14:49 Abs React Lymphs (Man) 0.0 K/mm3 01/06/21 14:49 Monocytes # (Manual) 1.0 K/mm3 (0.0-0.8) H 01/06/21 14:49 Eosinophils # (Manual) 0.0 K/mm3 (0.0-0.4) 01/06/21 14:49 Basophils # (Manual) 0.0 K/mm3 (0.0-0.1) 01/06/21 14:49 Metamyelocytes # 0.0 K/mm3 01/06/21 14:49 Myelocytes # 0.0 K/mm3 01/06/21 14:49 Promyelocytes # 0.0 K/mm3 01/06/21 14:49 Blast Cells # 0.0 K/mm3 01/06/21 14:49 WBC Morphology Not Reportable 12/23/20 14:09 Hypersegmented Neuts Not Reportable 01/06/21 14:49 Hyposegmented Neuts Not Reportable 01/06/21 14:49 Hypogranular Neuts Not Reportable 01/06/21 14:49 Smudge Cells Not Reportable 01/06/21 14:49 Toxic Granulation Not Reportable 01/06/21 14:49 Toxic Vacuolation Not Reportable 01/06/21 14:49 Dohle Bodies Not Reportable 01/06/21 14:49 Pelger-Huet Anomaly Not Reportable 01/06/21 14:49 Jair Rods Not Reportable 01/06/21 14:49 Platelet Estimate Not Reportable 01/06/21 14:49 Clumped Platelets Rare 01/06/21 14:49 Plt Clumps, EDTA Not Reportable 01/06/21 14:49 Large Platelets Not Reportable 01/06/21 14:49 Giant Platelets Not Reportable 01/06/21 14:49 Platelet Satelliting Not Reportable 01/06/21 14:49 Plt Morphology Comment Not Reportable 01/06/21 14:49 RBC Morphology Normal 01/06/21 14:49 Dimorphic RBCs Not Reportable 01/06/21 14:49 Polychromasia Not Reportable 01/06/21 14:49 Hypochromasia Not Reportable 01/06/21 14:49 Poikilocytosis Not Reportable 01/06/21 14:49 Anisocytosis Not Reportable 01/06/21 14:49 Microcytosis Not Reportable 01/06/21 14:49 Macrocytosis Not Reportable 01/06/21 14:49 Spherocytes Not Reportable 01/06/21 14:49 Pappenheimer Bodies Not Reportable 01/06/21 14:49 Sickle Cells Not Reportable 01/06/21 14:49 Target Cells Not Reportable 01/06/21 14:49 Tear Drop Cells Not Reportable 01/06/21 14:49 Ovalocytes Not Reportable 01/06/21 14:49 Stomatocytes Rare 01/06/21 14:49 Helmet Cells Not Reportable 01/06/21 14:49 Foote-Schneider Bodies Not Reportable 01/06/21 14:49 [place] Rings Not Reportable 01/06/21 14:49 Ale Cells Not Reportable 01/06/21 14:49 Bite Cells Not Reportable 01/06/21 14:49 Crenated Cell Not Reportable 01/06/21 14:49 Elliptocytes Not Reportable 01/06/21 14:49 Acanthocytes (Spur) Not Reportable 01/06/21 14:49 Rouleaux Not Reportable 01/06/21 14:49 Hemoglobin C Crystals Not Reportable 01/06/21 14:49 Schistocytes Not Reportable 01/06/21 14:49 Malaria parasites Not Reportable 01/06/21 14:49 Giorgi Bodies Not Reportable 01/06/21 14:49 Hem Pathologist Commnt Sent to pathology 01/06/21 14:49 PT 13.1 Sec. (12.2-14.9) 12/21/20 05:50 INR 1.01 (0.87-1.13) 12/21/20 05:50 D-Dimer 1259.33 ng/mlDDU (0-234) H 01/03/21 16:00 ABG pH 7.298 (7.320-7.450) L 01/07/21 04:23 POC ABG pCO2 73.2 mmHg (32.0-48.0) H 01/07/21 04:23 POC ABG pO2 75.7 mmHg (83-108) L 01/07/21 04:23 POC ABG HCO3 35 01/07/21 04:23 ABG O2 Saturation 94.7 (0-100) 01/07/21 04:23 POC ABG Base Excess 6.1 01/07/21 04:23 ABG Hemoglobin 13.3 (12.0-17.5) 01/07/21 04:23 ABG Oxyhemoglobin 93.5 (94-98) L 01/07/21 04:23 ABG Methemoglobin 0.3 (0.0-1.5) 01/07/21 04:23 ABG Sodium 137.6 mmol/L (136.0-145.0) 01/07/21 04:23 ABG Potassium 4.5 mmol/L (3.40-4.50) 01/07/21 04:23 ABG Chloride 94.0 mmol/L (98-107) L 01/07/21 04:23 ABG Glucose 404 mg/dL (65-95) H 01/07/21 04:23 Carboxyhemoglobin 1 (0.5-1.5) 01/07/21 04:23 FiO2 % 95 01/07/21 04:23 Sodium 141 mmol/L (137-145) 01/06/21 14:49 Potassium 5.0 mmol/L (3.6-5.0) D 01/06/21 14:49 Chloride 102.1 mmol/L (98-107) 01/06/21 14:49 Carbon Dioxide 20 mmol/L (22-30) L D 01/06/21 14:49 Anion Gap 24 mmol/L 01/06/21 14:49 BUN 70 mg/dL (7-17) H 01/06/21 14:49 Creatinine 3.2 mg/dL (0.6-1.2) H D 01/06/21 14:49 Estimated GFR 18 ml/min 01/06/21 14:49 BUN/Creatinine Ratio 22 % 01/06/21 14:49 Glucose 108 mg/dL (65-100) H 01/06/21 14:49 POC Glucose 385 mg/dL (70-105) H 01/07/21 07:26 Hemoglobin A1c 10.3 % (4-6) H 12/21/20 05:50 Lactic Acid 1.40 mmol/L (0.7-2.0) 12/21/20 05:50 Calcium 8.4 mg/dL (8.4-10.2) 01/06/21 14:49 Phosphorus 7.70 mg/dL (2.5-4.5) H D 01/06/21 14:49 Magnesium 2.60 mg/dL (1.7-2.3) H 01/06/21 14:49 Ferritin 1526.0 ng/mL (10.0-200.0) H 01/03/21 16:00 Total Bilirubin 1.10 mg/dL (0.1-1.2) 01/06/21 14:49 Direct Bilirubin 0.2 mg/dL (0-0.2) 01/05/21 04:09 Indirect Bilirubin 0.4 mg/dL 01/05/21 04:09 AST 94 units/L (5-40) H 01/06/21 14:49 ALT 103 units/L (7-56) H 01/06/21 14:49 Alkaline Phosphatase 220 units/L (35-129) H 01/06/21 14:49 Lactate Dehydrogenase 815 units/L (91-180) H 01/03/21 16:00 Troponin T < 0.010 ng/mL (0.00-0.029) 12/20/20 19:27 C-Reactive Protein 0.40 mg/dL (0.00-1.30) 01/03/21 16:00 Total Protein 6.4 g/dL (6.3-8.2) 01/06/21 14:49 Albumin 2.9 g/dL (3.9-5) L 01/06/21 14:49 Albumin/Globulin Ratio 0.8 % 01/06/21 14:49 Procalcitonin 0.07 ng/mL (<0.15) 12/26/20 11:08 Arterial Blood Glucose 404 mg/dL (65-95) H 01/07/21 04:23 Arterial Blood Ionized Calcium 3.9 mg/dL (4.6-5.3) L 01/07/21 04:23 Urine Color Yellow (Yellow) 12/22/20 03:00 Urine Turbidity Clear (Clear) 12/22/20 03:00 Urine pH 5.0 (5.0-7.0) 12/22/20 03:00 Ur Specific [place] 1.019 (1.003-1.030) 12/22/20 03:00 Urine Protein 100 mg/dl mg/dL (Negative) 12/22/20 03:00 Urine Glucose (UA) 50 mg/dL (Negative) 12/22/20 03:00 Urine Ketones Neg mg/dL (Negative) 12/22/20 03:00 Urine Blood Sm (Negative) 12/22/20 03:00 Urine Nitrite Neg (Negative) 12/22/20 03:00 Urine Bilirubin Neg (Negative) 12/22/20 03:00 Urine Urobilinogen 2.0 mg/dL (<2.0) 12/22/20 03:00 Ur Leukocyte Esterase Neg (Negative) 12/22/20 03:00 Urine WBC (Auto) 1.0 /HPF (0.0-6.0) 12/22/20 03:00 Urine RBC (Auto) 1.0 /HPF (0.0-6.0) 12/22/20 03:00 U Epithel Cells (Auto) 3.0 /HPF (0-13.0) 12/22/20 03:00 Urine Bacteria (Auto) 1+ /HPF (Negative) 12/22/20 03:00 Urine Mucus Few /HPF 12/22/20 03:00 Urine Eosinophils None seen (None Seen) 12/22/20 03:00 Urine Creatinine 117.9 mg/dL (0.1-20.0) H 12/22/20 03:00 Urine Sodium 67 mmol/L 12/22/20 03:00 Coronavirus (PCR) Positive (Negative) A 12/21/20 10:28 Hepatitis A IgM Ab Non-reactive (NonReactive) 12/22/20 06:00 Hep Bs Antigen Non-reactive (Negative) 12/22/20 06:00 Hep B Core IgM Ab Non-reactive (NonReactive) 12/22/20 06:00 Hepatitis C Antibody Non-reactive (NonReactive) 12/22/20 06:00 Curtis/IV: Voiding Method Indwelling Catheter Active Medications - Current Medications Current Medications: Generic Name Dose Route Start Last Admin Trade Name Freq PRN Reason Stop Dose Admin Acetaminophen 650 mg 12/20/20 23:15 12/24/20 09:40 Acetaminophen 325 Mg Tab PO 650 mg Q4H PRN Administration Pain MILD(1-3)/Fever >100.5/VARGAS Albuterol 2.5 mg 12/21/20 12:00 Albuterol 2.5 Mg/3 Ml Nebu IH Q4HRT PRN Shortness Of Breath Amlodipine Besylate 10 mg 12/26/20 14:00 01/07/21 10:12 Amlodipine 10 Mg Tab PO Not Given QDAY TAMEKA Lipase/Protease/Amylase 1 each 01/05/21 17:30 Lipase 10,500/Protease 25,000/Amylase 43,750 (Units) Dr Cap FEEDTUBE PRN PRN For Clogged Feeding Tube Dextrose 50 ml 05/10/21 23:15 Dextrose 50% In Water (25gm) 50 Ml Syringe IV Q30MIN PRN Hypoglycemia Protocol Enoxaparin Sodium 30 mg 01/07/21 22:00 Enoxaparin 30 Mg/0.3 Ml Inj SUB-Q QDAY@2200 [facility] Protocol Famotidine 20 mg 01/07/21 10:00 Famotidine 20 Mg Tab PO DAILY TAMEKA Fentanyl 50 mcg 01/05/21 14:33 Fentanyl 100 Mcg/2 Ml Inj IV Q10MIN PRN ANALGESIA Gabapentin 800 mg 12/21/20 22:00 01/06/21 21:51 Gabapentin 400 Mg Cap PO 800 mg BID TAMEKA Administration Guaifenesin 200 mg 12/21/20 16:00 01/02/21 21:10 Guaifenesin 100 Mg/5 Ml Oral Liqd PO 200 mg Q4H PRN Administration Cough Hydralazine HCl 10 mg 01/05/21 10:28 01/06/21 04:59 Hydralazine 20 Mg/1 Ml Inj IV 10 mg Q6H PRN Administration SBP >/=160; DBP >/=100 Propofol 1,000 mg in 100 mls @ 3.882 mls/hr 01/05/21 15:00 01/07/21 02:16 Diprivan 10 Mg/Ml IV 10 mcg/kg/min TITR TAMEKA 7.764 mls/hr Administration Protocol 5 MCG/KG/MIN Fentanyl Citrate 2,000 mcg in 100 mls @ 6.47 mls/hr 01/05/21 15:00 Fentanyl Drip Premix IV TITR [facility] Protocol 1 MCG/KG/HR NORepinephrine/NS 8 MG-250 ML 8 mg in 250 mls @ 3.75 mls/hr 01/07/21 11:00 Norepinephrine/Ns 8 Mg-250 Ml (Double Conc) IV TITRATE [facility] Protocol 2 MCG/MIN Insulin Human Lispro 0 unit 01/07/21 00:00 01/07/21 09:48 Insulin Lispro 100 Unit/Ml SUB-Q 10 unit Q4H [facility] Administration Protocol Lorazepam 0.5 mg 12/23/20 20:12 01/05/21 12:27 Lorazepam 2 Mg/Ml Vial IV 0.5 mg Q6H PRN Administration Anxiety Magnesium Hydroxide 30 ml 12/20/20 23:15 Magnesium Hydroxide (Mom) Oral Liqd Udc PO Q4H PRN Constipation Methylprednisolone Sodium Succinate 60 mg 01/07/21 12:00 Methylprednisolone Sod Succinate 40 Mg/1 Ml Inj IV Q6HR TAMEKA Morphine Sulfate 2 mg 12/20/20 23:15 01/03/21 06:38 Morphine 2 Mg/1 Ml Inj IV 2 mg Q4H PRN Administration Pain, Moderate (4-6) Ondansetron HCl 4 mg 12/20/20 23:15 Ondansetron 4 Mg/2 Ml Inj IV Q8H PRN Nausea And Vomiting Simple Syrup 15 ml 01/05/21 17:30 Simple Syrup 15 Ml FEEDTUBE PRN PRN Hypoglycemia Simple Syrup 30 ml 01/05/21 17:30 Simple Syrup 15 Ml FEEDTUBE PRN PRN Hypoglycemia Sodium Bicarbonate 325 mg 01/05/21 17:30 Sodium Bicarbonate 325 Mg Tab FEEDTUBE PRN PRN For Clogged Feeding Tube Sodium Chloride 10 ml 12/21/20 10:00 01/07/21 10:14 Sodium Chloride 0.9% 10 Ml Flush Syringe IV 10 ml BID TAMEKA Administration Sodium Chloride 10 ml 12/20/20 23:15 12/21/20 18:48 Sodium Chloride 0.9% 10 Ml Flush Syringe IV 10 ml PRN PRN Administration LINE FLUSH Sodium Chloride 1 applic 12/22/20 12:00 01/07/21 10:13 [place] Saline Nasal Gel 14.1 Gm NS 1 applic BID TAMEKA Administration Nutrition/Malnutrition Assess - Dietary Evaluation Nutrition/Malnutrition Findings: Nutrition Notes Start: 12/21/20 09:35 Freq: Status: Active Protocol: Document 01/06/21 07:54 (Rec: 01/06/21 07:58 [id number]) Nutrition Notes Need for Assessment generated from: MD Order Initial or Follow up Reassessment Current Diagnosis Diabetes,Hypertension, Respiratory Failure Other Pertinent Diagnosis pneu, COVID 19(+), SOB, Diabetic Neuropathy Current Diet TF Labs/Tests No new labs Pertinent Medications Propofol at 11.646ml/hr ( 307kcal) Height 5 ft 7 in Weight 129.4 kg [place] Body Weight (kg) 61.36 BMI 44.6 Weight Status Morbidly Obese Subjective/Other Information MD order for TF. Pt was intubated. Burn Absent Trauma Absent GI Symptoms None Current % PO Negligible Minimum of two criteria Yes Energy Intake (severe) < or equal to 50% Estimated Energy Requirement > or equal to 5 days Reduced Forensic Manager Strength Measurably Reduced (severe) #2 Nutrition Diagnosis Malnutrition Diagnosis Progress(for reassessment Continues documentation) #1 Nutrition Diagnosis Inadequate oral intake As Evidenced by Signs and Symptoms pt unable to consume PO Diagnosis Progress(for reassessment Continues documentation) Is patient on ventilator? Yes Is Patient Ambulatory and/or Out of Bed No REE-([place]-confined to bed) 2309.676 Kcal/Kg value to use for calculation 15 Approximate Energy Requirements Using 1941 kcal/Kg Calculation Used for Recommendations Kcal/kg Additional Notes PRO needs: >154g (<2.5g/kg IBW ) Fluid needs: 1 mL/kcal or per MD Nutrition Intervention Nutrition Support: Vital AF at 65 ml/hr Flush 100 q4h Kcal 1,872 Protein (gm) 117 Carbohydrates (gm) 197 Fat (gm) 84 Fluid (mL) 1,265 Fiber (gm) 0 Add Supplement/Snack (indicate name/kcal D/c /protein ) Goal #1 Meet at least 75% of energy and protein needs via TF Anticipated Discharge Needs: Unable to determine at this time Follow-Up By: 01/10/21 Additional Comments FU for TF start and tolerance
[2021-01-07] MEDS: NORepinephrine/NS 8 MG-250 ML 8 MG/250 ML INFUS..BTL IV SCH (11:14)
[2021-01-07] MEDS ORDERED: SODIUM CHLORIDE 0.9% 500 ML IVPB IV PRN (11:22)
[2021-01-07] MEDS: GABAPENTIN 400 MG CAP PO SCH ×2 (12:29→22:09)
[2021-01-07] MEDS: methylPREDNISolone Sod Succinate 40 MG/1 ML INJ IV SCH ×2 (12:38→18:30)
--- NOTE | 2021-01-07 13:34 | Electrocardiograph Report ---
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
--- NOTE | 2021-01-07 13:43 | Event Note ---
Date: 01/07/21 Spoke with son over the phone to update him on the severity of illness. Spoke about the chest tubes and her current breathing state, and possible need for central access which he agrees with. Will call him again Sunday. My partner is rounding this weekend.
--- NOTE | 2021-01-07 13:45 | Progress Note ---
Assessment and Plan 55 y/o female with acute respiratory failure secondary to cOVID 19 with prior history of ILD on a CT in [place] system 01/07/21: Renal failure now with minimal urine output. pH is better so will stop bicarb drip. Bilateral chest tubes in place. Will attempt art line placement and determining now if central access is needed. OVerall prognosis is very very guarded. Agree with follow ABG in am and need to obtain labs if possible to assess renal function. overall prognosis is very very guarded to poor. 01/06/21: May need to give another dose of lasix today. Await Chemistry from this am. Practicing lung protective strategy so low tidal volumes with permissive hypercapnea is acceptable as long as pH is 7.2 and above. Will re peat gas this afternoon on new settings. Feed patient. Guarded prognosis. 01/05/21: Continue bipap therapy for now. Continue stress dose steroids. Hopeful patient will improve but may ultimately require intubation. Very very sick lungs prior to acquiring covid. 01/04/21: No lasix again today. Continue Free water at current IV rate as stated below. Check labs tomorrow. Continue PPV and attempt to wean FiO2 accordingly. Consider nutrition consult for PPN. Prognosis still remains very guarded. 01/03/21: continue between HFNC and bipap. Will hold on lasix today as patient is getting more hypernatremia and worsening renal function. All secondary to lack of eating and drinking. Ok with starting with D5 at like 42/hr. Guarded prognosis. 01/02/21: Continue to avoid intubation at all costs. Continue high dose steroids. Given concern for ILD, may even need to consider pulse dose steroids but will discuss on rounds tomorrow. Lasix was given last night and yesterday morning. negative 1700 on yesterday. Please check labs in the am as I would like to give lasix again tonight. 01/01/21: Unfortunately, given her high risk for intubation, patient will not be able to eat. Nutrition has been an issue and we will discuss this on rounds. May need PPN. Continue steroids at current dosing. Will give an additional dose of lasix tonight. 12/31/20: will continue steroids today as same dose and frequency. No changes to lasix therapy. Need to keep patient as calm as possible to allow bipap to work to avoid intubation at all costs. Prognosis still remains guarded. 12/30/20: Continue steroids at 60q6. Continue daily lasix. may need to consider BID dosing to help with more volume removal if renal function will permit. Overall prognosis is very very guarded to poor, especially if the patient ends up on the mechanical ventilator. 12/29/20: Will increase steroids to q6 hour dosing to see if this helps. Prognosis is very very guarded. 12/28/20: Continue steroids and lasix, may need to ask renal about BID dosing for a few days to see if this will help. Prone as tolerated during the day and sleep prone at night. 1. Agree with change in steroids to solumedrol 60q8, will continue for now 2. Agree with daily lasix but goal should be daily net negative state. 3. Prone as tolerated during the day and sleep prone at night 4. Guarded prognosis CCT 31 minutes. Subjective Date of service: 01/07/21 Principal diagnosis: COVID-19 Interval history: concern for free air under diaphragm. Appreciate surgery help and agree with their assessment. Also thank them for placing bilateral chest tubes. Patient remains sedated, on 95%. Objective Vital Signs - 12hr 01/07/21 01/07/21 01/07/21 02:00 02:30 03:00 Temperature Pulse Rate 126 H 125 H 111 H Pulse Rate [ From Monitor] Respiratory 24 25 H 18 Rate Blood Pressure 122/76 127/79 110/71 O2 Sat by Pulse 94 94 94 Oximetry 01/07/21 01/07/21 01/07/21 03:30 03:50 04:00 Temperature 99.6 F Pulse Rate 119 H 120 H Pulse Rate [ 125 H From Monitor] Respiratory 24 28 H Rate Blood Pressure 113/62 114/69 O2 Sat by Pulse 95 95 Oximetry 01/07/21 01/07/21 01/07/21 04:30 05:00 05:32 Temperature Pulse Rate 126 H 124 H 117 H Pulse Rate [ From Monitor] Respiratory 25 H 25 H Rate Blood Pressure 109/70 109/70 114/69 O2 Sat by Pulse 95 96 93 Oximetry 01/07/21 01/07/21 01/07/21 06:00 06:30 07:00 Temperature Pulse Rate 117 H 117 H 116 H Pulse Rate [ From Monitor] Respiratory 22 23 6 L Rate Blood Pressure 118/50 102/42 109/43 O2 Sat by Pulse 94 94 95 Oximetry 01/07/21 01/07/21 01/07/21 07:30 07:47 08:00 Temperature Pulse Rate 115 H 114 H 114 H Pulse Rate [ 108 H From Monitor] Respiratory 11 L 28 H Rate Blood Pressure 116/47 116/47 95/34 O2 Sat by Pulse 94 95 95 Oximetry 01/07/21 01/07/21 01/07/21 08:30 09:00 09:30 Temperature Pulse Rate 59 L 108 H 108 H Pulse Rate [ From Monitor] Respiratory 25 H 28 H 28 H Rate Blood Pressure 89/52 82/42 82/42 O2 Sat by Pulse 96 98 98 Oximetry 01/07/21 01/07/21 01/07/21 10:00 10:12 10:19 Temperature 100 F H Pulse Rate 108 H Pulse Rate [ From Monitor] Respiratory 21 Rate Blood Pressure 85/46 85/46 O2 Sat by Pulse 98 Oximetry 01/07/21 01/07/21 01/07/21 10:30 11:00 11:13 Temperature Pulse Rate 108 H 109 H 109 H Pulse Rate [ From Monitor] Respiratory 28 H 28 H Rate Blood Pressure 82/41 89/45 88/56 O2 Sat by Pulse 97 99 99 Oximetry 01/07/21 01/07/21 01/07/21 11:19 11:25 11:30 Temperature 99.4 F 99.4 F Pulse Rate 114 H Pulse Rate [ From Monitor] Respiratory 17 Rate Blood Pressure 97/58 O2 Sat by Pulse 98 Oximetry 01/07/21 01/07/21 01/07/21 12:00 12:05 12:30 Temperature 99.2 F Pulse Rate 127 H 116 H Pulse Rate [ 125 H From Monitor] Respiratory 28 H 21 Rate Blood Pressure 100/55 104/68 O2 Sat by Pulse 98 99 Oximetry 01/07/21 13:00 Temperature Pulse Rate 113 H Pulse Rate [ From Monitor] Respiratory 20 Rate Blood Pressure 105/66 O2 Sat by Pulse 98 Oximetry Constitutional: no acute distress, alert (obese), other (on BIPAP) Eyes: non-icteric ENT: oropharynx moist Neck: supple Effort: normal Ascultation: Bilateral: clear, diminished breath sounds (anteriorly) Cardiovascular: regular rate and rhythm (no mrg) Gastrointestinal: normoactive bowel sounds, soft, non-tender, non-distended Integumentary: normal Extremities: no cyanosis, no edema, pink and warm Neurologic: normal mental status, non-focal exam Psychiatric: mood appropriate, affect normal CBC and BMP: 01/06/21 14:49 01/06/21 14:49 ABG, PT/INR, D-dimer: ABG ABG pH 7.298 (7.320-7.450) L 01/07/21 04:23 POC ABG pCO2 73.2 mmHg (32.0-48.0) H 01/07/21 04:23 POC ABG pO2 75.7 mmHg (83-108) L 01/07/21 04:23 POC ABG HCO3 35 01/07/21 04:23 ABG O2 Saturation 94.7 (0-100) 01/07/21 04:23 PT/INR, D-dimer PT 13.1 Sec. (12.2-14.9) 12/21/20 05:50 INR 1.01 (0.87-1.13) 12/21/20 05:50 D-Dimer 1259.33 ng/mlDDU (0-234) H 01/03/21 16:00 Abnormal lab findings: Abnormal Labs 12/20/20 12/20/20 12/20/20 19:27 19:27 19:27 WBC 2.9 L RBC Hct MCV MCHC Plt Count 116 L Lymph % (Auto) 41.2 H [place] % (Auto) 13.2 H Lymph # (Auto) Seg Neutrophils % Seg Neuts % (Manual) Lymphocytes % (Manual) Nucleated RBC % Seg Neutrophils # 1.3 L Seg Neutrophils # Man Lymphocytes # (Manual) Monocytes # (Manual) D-Dimer 260.58 H ABG pH POC ABG pCO2 POC ABG pO2 ABG Oxyhemoglobin ABG Sodium ABG Potassium ABG Chloride ABG Glucose Carboxyhemoglobin Sodium 135 L Potassium Chloride 96.1 L Carbon Dioxide BUN 23 H Creatinine 1.4 H Glucose 295 H POC Glucose Hemoglobin A1c Calcium 8.3 L Phosphorus Magnesium Ferritin AST 125 H ALT 96 H Alkaline Phosphatase 323 H Lactate Dehydrogenase C-Reactive Protein Total Protein 8.7 H Albumin 3.7 L Arterial Blood Glucose Arterial Blood Ionized Calcium Urine Creatinine Coronavirus (PCR) 12/20/20 12/20/20 12/21/20 19:43 19:43 05:50 WBC RBC Hct MCV MCHC Plt Count Lymph % (Auto) [place] % (Auto) Lymph # (Auto) Seg Neutrophils % Seg Neuts % (Manual) Lymphocytes % (Manual) Nucleated RBC % Seg Neutrophils # Seg Neutrophils # Man Lymphocytes # (Manual) Monocytes # (Manual) D-Dimer ABG pH POC ABG pCO2 POC ABG pO2 ABG Oxyhemoglobin ABG Sodium ABG Potassium ABG Chloride ABG Glucose Carboxyhemoglobin Sodium Potassium Chloride Carbon Dioxide BUN Creatinine Glucose 297 H POC Glucose Hemoglobin A1c 10.3 H Calcium Phosphorus Magnesium Ferritin 1420.0 H AST ALT Alkaline Phosphatase Lactate Dehydrogenase 491 H C-Reactive Protein 5.50 H Total Protein Albumin Arterial Blood Glucose Arterial Blood Ionized Calcium Urine Creatinine Coronavirus (PCR) 12/21/20 12/21/20 12/21/20 05:50 05:50 08:04 WBC 1.6 L* RBC 3.40 L Hct MCV MCHC Plt Count 104 L Lymph % (Auto) [place] % (Auto) Lymph # (Auto) Seg Neutrophils % Seg Neuts % (Manual) 82.0 H Lymphocytes % (Manual) Nucleated RBC % Seg Neutrophils # Seg Neutrophils # Man 1.3 L Lymphocytes # (Manual) 0.3 L Monocytes # (Manual) D-Dimer ABG pH POC ABG pCO2 POC ABG pO2 ABG Oxyhemoglobin ABG Sodium ABG Potassium ABG Chloride ABG Glucose Carboxyhemoglobin Sodium 132 L Potassium 5.7 H D Chloride 95.7 L Carbon Dioxide BUN 33 H Creatinine 1.7 H Glucose 500 H POC Glucose 483 H Hemoglobin A1c Calcium 7.7 L Phosphorus Magnesium Ferritin AST ALT Alkaline Phosphatase Lactate Dehydrogenase C-Reactive Protein Total Protein Albumin Arterial Blood Glucose Arterial Blood Ionized Calcium Urine Creatinine Coronavirus (PCR) 12/21/20 12/21/20 12/21/20 10:28 12:05 16:54 WBC RBC Hct MCV MCHC Plt Count Lymph % (Auto) [place] % (Auto) Lymph # (Auto) Seg Neutrophils % Seg Neuts % (Manual) Lymphocytes % (Manual) Nucleated RBC % Seg Neutrophils # Seg Neutrophils # Man Lymphocytes # (Manual) Monocytes # (Manual) D-Dimer ABG pH POC ABG pCO2 POC ABG pO2 ABG Oxyhemoglobin ABG Sodium ABG Potassium ABG Chloride ABG Glucose Carboxyhemoglobin Sodium Potassium Chloride Carbon Dioxide BUN Creatinine Glucose POC Glucose 482 H 374 H Hemoglobin A1c Calcium Phosphorus Magnesium Ferritin AST ALT Alkaline Phosphatase Lactate Dehydrogenase C-Reactive Protein Total Protein Albumin Arterial Blood Glucose Arterial Blood Ionized Calcium Urine Creatinine Coronavirus (PCR) Positive A 12/21/20 12/21/20 12/22/20 18:24 22:12 03:00 WBC RBC Hct MCV MCHC Plt Count Lymph % (Auto) [place] % (Auto) Lymph # (Auto) Seg Neutrophils % Seg Neuts % (Manual) Lymphocytes % (Manual) Nucleated RBC % Seg Neutrophils # Seg Neutrophils # Man Lymphocytes # (Manual) Monocytes # (Manual) D-Dimer ABG pH POC ABG pCO2 POC ABG pO2 ABG Oxyhemoglobin ABG Sodium ABG Potassium ABG Chloride ABG Glucose Carboxyhemoglobin Sodium 131 L Potassium Chloride 95.2 L Carbon Dioxide BUN 37 H Creatinine 1.4 H Glucose 417 H POC Glucose 358 H Hemoglobin A1c Calcium 7.5 L Phosphorus Magnesium Ferritin AST 82 H ALT 69 H Alkaline Phosphatase 262 H Lactate Dehydrogenase C-Reactive Protein Total Protein Albumin 3.0 L Arterial Blood Glucose Arterial Blood Ionized Calcium Urine Creatinine 117.9 H Coronavirus (PCR) 12/22/20 12/22/20 12/22/20 05:29 08:19 11:18 WBC RBC Hct MCV MCHC Plt Count Lymph % (Auto) [place] % (Auto) Lymph # (Auto) Seg Neutrophils % Seg Neuts % (Manual) Lymphocytes % (Manual) Nucleated RBC % Seg Neutrophils # Seg Neutrophils # Man Lymphocytes # (Manual) Monocytes # (Manual) D-Dimer ABG pH POC ABG pCO2 POC ABG pO2 ABG Oxyhemoglobin ABG Sodium ABG Potassium ABG Chloride ABG Glucose Carboxyhemoglobin Sodium Potassium Chloride Carbon Dioxide BUN 34 H Creatinine 1.3 H Glucose 169 H POC Glucose 136 H 132 H Hemoglobin A1c Calcium 7.5 L Phosphorus Magnesium Ferritin AST 74 H ALT 60 H Alkaline Phosphatase 249 H Lactate Dehydrogenase C-Reactive Protein Total Protein Albumin 3.1 L Arterial Blood Glucose Arterial Blood Ionized Calcium Urine Creatinine Coronavirus (PCR) 12/22/20 12/22/20 12/22/20 14:18 14:18 16:36 WBC RBC Hct MCV MCHC Plt Count Lymph % (Auto) [place] % (Auto) Lymph # (Auto) Seg Neutrophils % Seg Neuts % (Manual) Lymphocytes % (Manual) Nucleated RBC % Seg Neutrophils # Seg Neutrophils # Man Lymphocytes # (Manual) Monocytes # (Manual) D-Dimer ABG pH POC ABG pCO2 POC ABG pO2 ABG Oxyhemoglobin ABG Sodium ABG Potassium ABG Chloride ABG Glucose Carboxyhemoglobin Sodium Potassium Chloride Carbon Dioxide BUN Creatinine Glucose POC Glucose 440 H Hemoglobin A1c Calcium Phosphorus Magnesium Ferritin 1295.0 H AST ALT Alkaline Phosphatase Lactate Dehydrogenase 620 H C-Reactive Protein 2.70 H Total Protein Albumin Arterial Blood Glucose Arterial Blood Ionized Calcium Urine Creatinine Coronavirus (PCR) 12/22/20 12/23/20 12/23/20 21:07 08:09 11:30 WBC RBC Hct MCV MCHC Plt Count Lymph % (Auto) [place] % (Auto) Lymph # (Auto) Seg Neutrophils % Seg Neuts % (Manual) Lymphocytes % (Manual) Nucleated RBC % Seg Neutrophils # Seg Neutrophils # Man Lymphocytes # (Manual) Monocytes # (Manual) D-Dimer ABG pH POC ABG pCO2 POC ABG pO2 ABG Oxyhemoglobin ABG Sodium ABG Potassium ABG Chloride ABG Glucose Carboxyhemoglobin Sodium Potassium Chloride Carbon Dioxide BUN Creatinine Glucose POC Glucose 493 H 156 H 185 H Hemoglobin A1c Calcium Phosphorus Magnesium Ferritin AST ALT Alkaline Phosphatase Lactate Dehydrogenase C-Reactive Protein Total Protein Albumin Arterial Blood Glucose Arterial Blood Ionized Calcium Urine Creatinine Coronavirus (PCR) 12/23/20 12/23/20 12/23/20 14:09 14:09 16:26 WBC 1.8 L* RBC 3.45 L Hct MCV MCHC Plt Count 114 L Lymph % (Auto) [place] % (Auto) Lymph # (Auto) Seg Neutrophils % Seg Neuts % (Manual) 87.0 H Lymphocytes % (Manual) 3.0 L Nucleated RBC % 1.0 H Seg Neutrophils # Seg Neutrophils # Man 1.6 L Lymphocytes # (Manual) 0.1 L Monocytes # (Manual) D-Dimer ABG pH POC ABG pCO2 POC ABG pO2 ABG Oxyhemoglobin ABG Sodium ABG Potassium ABG Chloride ABG Glucose Carboxyhemoglobin Sodium Potassium Chloride Carbon Dioxide BUN 19 H Creatinine Glucose 292 H POC Glucose 351 H Hemoglobin A1c Calcium 7.4 L Phosphorus Magnesium Ferritin AST 71 H ALT Alkaline Phosphatase 264 H Lactate Dehydrogenase C-Reactive Protein Total Protein Albumin 3.0 L Arterial Blood Glucose Arterial Blood Ionized Calcium Urine Creatinine Coronavirus (PCR) 12/23/20 12/24/20 12/24/20 21:11 08:21 11:58 WBC RBC Hct MCV MCHC Plt Count Lymph % (Auto) [place] % (Auto) Lymph # (Auto) Seg Neutrophils % Seg Neuts % (Manual) Lymphocytes % (Manual) Nucleated RBC % Seg Neutrophils # Seg Neutrophils # Man Lymphocytes # (Manual) Monocytes # (Manual) D-Dimer ABG pH POC ABG pCO2 POC ABG pO2 ABG Oxyhemoglobin ABG Sodium ABG Potassium ABG Chloride ABG Glucose Carboxyhemoglobin Sodium Potassium Chloride Carbon Dioxide BUN Creatinine Glucose POC Glucose 288 H 286 H 277 H Hemoglobin A1c Calcium Phosphorus Magnesium Ferritin AST ALT Alkaline Phosphatase Lactate Dehydrogenase C-Reactive Protein Total Protein Albumin Arterial Blood Glucose Arterial Blood Ionized Calcium Urine Creatinine Coronavirus (PCR) 12/24/20 12/24/20 12/24/20 12:29 12:29 16:05 WBC 2.5 L RBC 3.49 L Hct MCV MCHC 35 H Plt Count 132 L Lymph % (Auto) [place] % (Auto) 7.6 H Lymph # (Auto) 0.4 L Seg Neutrophils % 74.7 H Seg Neuts % (Manual) Lymphocytes % (Manual) Nucleated RBC % Seg Neutrophils # Seg Neutrophils # Man Lymphocytes # (Manual) Monocytes # (Manual) D-Dimer ABG pH POC ABG pCO2 POC ABG pO2 ABG Oxyhemoglobin ABG Sodium ABG Potassium ABG Chloride ABG Glucose Carboxyhemoglobin Sodium Potassium Chloride Carbon Dioxide BUN Creatinine Glucose 256 H POC Glucose 282 H Hemoglobin A1c Calcium 7.8 L Phosphorus Magnesium Ferritin AST 50 H ALT Alkaline Phosphatase 262 H Lactate Dehydrogenase C-Reactive Protein Total Protein Albumin 2.8 L Arterial Blood Glucose Arterial Blood Ionized Calcium Urine Creatinine Coronavirus (PCR) 12/24/20 12/25/20 12/25/20 22:01 07:58 11:38 WBC RBC Hct MCV MCHC Plt Count Lymph % (Auto) [place] % (Auto) Lymph # (Auto) Seg Neutrophils % Seg Neuts % (Manual) Lymphocytes % (Manual) Nucleated RBC % Seg Neutrophils # Seg Neutrophils # Man Lymphocytes # (Manual) Monocytes # (Manual) D-Dimer ABG pH POC ABG pCO2 POC ABG pO2 ABG Oxyhemoglobin ABG Sodium ABG Potassium ABG Chloride ABG Glucose Carboxyhemoglobin Sodium Potassium Chloride Carbon Dioxide BUN Creatinine Glucose POC Glucose 366 H 278 H 325 H Hemoglobin A1c Calcium Phosphorus Magnesium Ferritin AST ALT Alkaline Phosphatase Lactate Dehydrogenase C-Reactive Protein Total Protein Albumin Arterial Blood Glucose Arterial Blood Ionized Calcium Urine Creatinine Coronavirus (PCR) 12/25/20 12/25/20 12/26/20 15:47 21:31 04:29 WBC RBC Hct MCV MCHC Plt Count Lymph % (Auto) [place] % (Auto) Lymph # (Auto) Seg Neutrophils % Seg Neuts % (Manual) Lymphocytes % (Manual) Nucleated RBC % Seg Neutrophils # Seg Neutrophils # Man Lymphocytes # (Manual) Monocytes # (Manual) D-Dimer ABG pH POC ABG pCO2 POC ABG pO2 ABG Oxyhemoglobin ABG Sodium ABG Potassium ABG Chloride ABG Glucose Carboxyhemoglobin Sodium Potassium Chloride Carbon Dioxide BUN 22 H Creatinine Glucose 327 H POC Glucose 316 H 339 H Hemoglobin A1c Calcium 7.9 L Phosphorus Magnesium Ferritin AST ALT Alkaline Phosphatase Lactate Dehydrogenase C-Reactive Protein Total Protein Albumin Arterial Blood Glucose Arterial Blood Ionized Calcium Urine Creatinine Coronavirus (PCR) 12/26/20 12/26/20 12/26/20 07:42 11:08 11:08 WBC RBC Hct MCV MCHC Plt Count Lymph % (Auto) [place] % (Auto) Lymph # (Auto) Seg Neutrophils % Seg Neuts % (Manual) Lymphocytes % (Manual) Nucleated RBC % Seg Neutrophils # Seg Neutrophils # Man Lymphocytes # (Manual) Monocytes # (Manual) D-Dimer 1954.54 H ABG pH POC ABG pCO2 POC ABG pO2 ABG Oxyhemoglobin ABG Sodium ABG Potassium ABG Chloride ABG Glucose Carboxyhemoglobin Sodium Potassium Chloride Carbon Dioxide BUN Creatinine Glucose POC Glucose 353 H Hemoglobin A1c Calcium Phosphorus Magnesium Ferritin 932.1 H AST ALT Alkaline Phosphatase Lactate Dehydrogenase C-Reactive Protein Total Protein Albumin Arterial Blood Glucose Arterial Blood Ionized Calcium Urine Creatinine Coronavirus (PCR) 12/26/20 12/26/20 12/26/20 11:08 11:57 16:40 WBC RBC Hct MCV MCHC Plt Count Lymph % (Auto) [place] % (Auto) Lymph # (Auto) Seg Neutrophils % Seg Neuts % (Manual) Lymphocytes % (Manual) Nucleated RBC % Seg Neutrophils # Seg Neutrophils # Man Lymphocytes # (Manual) Monocytes # (Manual) D-Dimer ABG pH POC ABG pCO2 POC ABG pO2 ABG Oxyhemoglobin ABG Sodium ABG Potassium ABG Chloride ABG Glucose Carboxyhemoglobin Sodium Potassium Chloride Carbon Dioxide BUN Creatinine Glucose POC Glucose 318 H 352 H Hemoglobin A1c Calcium Phosphorus Magnesium Ferritin AST ALT Alkaline Phosphatase Lactate Dehydrogenase 698 H C-Reactive Protein 3.70 H Total Protein Albumin Arterial Blood Glucose Arterial Blood Ionized Calcium Urine Creatinine Coronavirus (PCR) 12/26/20 12/27/20 12/27/20 21:29 04:25 04:25 WBC RBC Hct MCV MCHC Plt Count Lymph % (Auto) 6.4 L [place] % (Auto) 7.5 H Lymph # (Auto) 0.5 L Seg Neutrophils % 85.9 H Seg Neuts % (Manual) Lymphocytes % (Manual) Nucleated RBC % Seg Neutrophils # Seg Neutrophils # Man Lymphocytes # (Manual) Monocytes # (Manual) D-Dimer ABG pH POC ABG pCO2 POC ABG pO2 ABG Oxyhemoglobin ABG Sodium ABG Potassium ABG Chloride ABG Glucose Carboxyhemoglobin Sodium Potassium 5.4 H D Chloride Carbon Dioxide BUN 30 H Creatinine Glucose 273 H POC Glucose 376 H Hemoglobin A1c Calcium 8.1 L Phosphorus Magnesium Ferritin AST ALT Alkaline Phosphatase 242 H Lactate Dehydrogenase C-Reactive Protein Total Protein Albumin 2.7 L Arterial Blood Glucose Arterial Blood Ionized Calcium Urine Creatinine Coronavirus (PCR) 12/27/20 12/27/20 12/27/20 08:05 11:39 17:28 WBC RBC Hct MCV MCHC Plt Count Lymph % (Auto) [place] % (Auto) Lymph # (Auto) Seg Neutrophils % Seg Neuts % (Manual) Lymphocytes % (Manual) Nucleated RBC % Seg Neutrophils # Seg Neutrophils # Man Lymphocytes # (Manual) Monocytes # (Manual) D-Dimer ABG pH POC ABG pCO2 POC ABG pO2 ABG Oxyhemoglobin ABG Sodium ABG Potassium ABG Chloride ABG Glucose Carboxyhemoglobin Sodium Potassium Chloride Carbon Dioxide BUN Creatinine Glucose POC Glucose 287 H 359 H 490 H Hemoglobin A1c Calcium Phosphorus Magnesium Ferritin AST ALT Alkaline Phosphatase Lactate Dehydrogenase C-Reactive Protein Total Protein Albumin Arterial Blood Glucose Arterial Blood Ionized Calcium Urine Creatinine Coronavirus (PCR) 12/27/20 12/27/20 12/28/20 21:43 21:53 04:41 WBC RBC Hct MCV MCHC Plt Count Lymph % (Auto) [place] % (Auto) Lymph # (Auto) Seg Neutrophils % Seg Neuts % (Manual) Lymphocytes % (Manual) Nucleated RBC % Seg Neutrophils # Seg Neutrophils # Man Lymphocytes # (Manual) Monocytes # (Manual) D-Dimer ABG pH POC ABG pCO2 POC ABG pO2 ABG Oxyhemoglobin ABG Sodium ABG Potassium ABG Chloride ABG Glucose Carboxyhemoglobin Sodium Potassium Chloride Carbon Dioxide 31 H BUN 35 H Creatinine Glucose 328 H POC Glucose 503 H 438 H Hemoglobin A1c Calcium Phosphorus Magnesium Ferritin AST ALT Alkaline Phosphatase Lactate Dehydrogenase C-Reactive Protein Total Protein Albumin Arterial Blood Glucose Arterial Blood Ionized Calcium Urine Creatinine Coronavirus (PCR) 12/28/20 12/28/20 12/28/20 07:58 11:40 15:43 WBC RBC Hct MCV MCHC Plt Count Lymph % (Auto) [place] % (Auto) Lymph # (Auto) Seg Neutrophils % Seg Neuts % (Manual) Lymphocytes % (Manual) Nucleated RBC % Seg Neutrophils # Seg Neutrophils # Man Lymphocytes # (Manual) Monocytes # (Manual) D-Dimer 4626.15 H ABG pH POC ABG pCO2 POC ABG pO2 ABG Oxyhemoglobin ABG Sodium ABG Potassium ABG Chloride ABG Glucose Carboxyhemoglobin Sodium Potassium Chloride Carbon Dioxide BUN Creatinine Glucose POC Glucose 321 H 455 H Hemoglobin A1c Calcium Phosphorus Magnesium Ferritin AST ALT Alkaline Phosphatase Lactate Dehydrogenase C-Reactive Protein Total Protein Albumin Arterial Blood Glucose Arterial Blood Ionized Calcium Urine Creatinine Coronavirus (PCR) 12/28/20 12/28/20 12/28/20 15:43 15:43 17:10 WBC RBC Hct MCV MCHC Plt Count Lymph % (Auto) [place] % (Auto) Lymph # (Auto) Seg Neutrophils % Seg Neuts % (Manual) Lymphocytes % (Manual) Nucleated RBC % Seg Neutrophils # Seg Neutrophils # Man Lymphocytes # (Manual) Monocytes # (Manual) D-Dimer ABG pH POC ABG pCO2 POC ABG pO2 ABG Oxyhemoglobin ABG Sodium ABG Potassium ABG Chloride ABG Glucose Carboxyhemoglobin Sodium Potassium Chloride Carbon Dioxide BUN Creatinine Glucose POC Glucose 291 H Hemoglobin A1c Calcium Phosphorus Magnesium Ferritin 1030.0 H AST ALT Alkaline Phosphatase Lactate Dehydrogenase 838 H C-Reactive Protein Total Protein Albumin Arterial Blood Glucose Arterial Blood Ionized Calcium Urine Creatinine Coronavirus (PCR) 12/28/20 12/29/20 12/29/20 21:42 05:12 08:25 WBC RBC Hct MCV MCHC Plt Count Lymph % (Auto) [place] % (Auto) Lymph # (Auto) Seg Neutrophils % Seg Neuts % (Manual) Lymphocytes % (Manual) Nucleated RBC % Seg Neutrophils # Seg Neutrophils # Man Lymphocytes # (Manual) Monocytes # (Manual) D-Dimer ABG pH POC ABG pCO2 POC ABG pO2 ABG Oxyhemoglobin ABG Sodium ABG Potassium ABG Chloride ABG Glucose Carboxyhemoglobin Sodium 146 H Potassium Chloride Carbon Dioxide 32 H BUN 34 H Creatinine Glucose 126 H POC Glucose 240 H 176 H Hemoglobin A1c Calcium Phosphorus Magnesium Ferritin AST ALT Alkaline Phosphatase Lactate Dehydrogenase C-Reactive Protein Total Protein Albumin Arterial Blood Glucose Arterial Blood Ionized Calcium Urine Creatinine Coronavirus (PCR) 12/29/20 12/29/20 12/29/20 11:24 16:49 21:39 WBC RBC Hct MCV MCHC Plt Count Lymph % (Auto) [place] % (Auto) Lymph # (Auto) Seg Neutrophils % Seg Neuts % (Manual) Lymphocytes % (Manual) Nucleated RBC % Seg Neutrophils # Seg Neutrophils # Man Lymphocytes # (Manual) Monocytes # (Manual) D-Dimer ABG pH POC ABG pCO2 POC ABG pO2 ABG Oxyhemoglobin ABG Sodium ABG Potassium ABG Chloride ABG Glucose Carboxyhemoglobin Sodium Potassium Chloride Carbon Dioxide BUN Creatinine Glucose POC Glucose 209 H 226 H 169 H Hemoglobin A1c Calcium Phosphorus Magnesium Ferritin AST ALT Alkaline Phosphatase Lactate Dehydrogenase C-Reactive Protein Total Protein Albumin Arterial Blood Glucose Arterial Blood Ionized Calcium Urine Creatinine Coronavirus (PCR) 12/30/20 12/30/20 12/30/20 07:34 12:17 16:29 WBC RBC Hct MCV MCHC Plt Count Lymph % (Auto) [place] % (Auto) Lymph # (Auto) Seg Neutrophils % Seg Neuts % (Manual) Lymphocytes % (Manual) Nucleated RBC % Seg Neutrophils # Seg Neutrophils # Man Lymphocytes # (Manual) Monocytes # (Manual) D-Dimer ABG pH POC ABG pCO2 POC ABG pO2 ABG Oxyhemoglobin ABG Sodium ABG Potassium ABG Chloride ABG Glucose Carboxyhemoglobin Sodium Potassium Chloride Carbon Dioxide BUN Creatinine Glucose POC Glucose 206 H 261 H 229 H Hemoglobin A1c Calcium Phosphorus Magnesium Ferritin AST ALT Alkaline Phosphatase Lactate Dehydrogenase C-Reactive Protein Total Protein Albumin Arterial Blood Glucose Arterial Blood Ionized Calcium Urine Creatinine Coronavirus (PCR) 12/30/20 12/30/20 12/31/20 18:03 23:13 08:43 WBC RBC Hct MCV MCHC Plt Count Lymph % (Auto) [place] % (Auto) Lymph # (Auto) Seg Neutrophils % Seg Neuts % (Manual) Lymphocytes % (Manual) Nucleated RBC % Seg Neutrophils # Seg Neutrophils # Man Lymphocytes # (Manual) Monocytes # (Manual) D-Dimer ABG pH 7.454 H POC ABG pCO2 49.7 H POC ABG pO2 59.0 L ABG Oxyhemoglobin 88.6 L ABG Sodium 146.4 H ABG Potassium ABG Chloride ABG Glucose 252 H Carboxyhemoglobin Sodium Potassium Chloride Carbon Dioxide BUN Creatinine Glucose POC Glucose 188 H 191 H Hemoglobin A1c Calcium Phosphorus Magnesium Ferritin AST ALT Alkaline Phosphatase Lactate Dehydrogenase C-Reactive Protein Total Protein Albumin Arterial Blood Glucose 252 H Arterial Blood Ionized Calcium 4.5 L Urine Creatinine Coronavirus (PCR) 12/31/20 12/31/20 12/31/20 11:57 16:57 21:37 WBC RBC Hct MCV MCHC Plt Count Lymph % (Auto) [place] % (Auto) Lymph # (Auto) Seg Neutrophils % Seg Neuts % (Manual) Lymphocytes % (Manual) Nucleated RBC % Seg Neutrophils # Seg Neutrophils # Man Lymphocytes # (Manual) Monocytes # (Manual) D-Dimer ABG pH POC ABG pCO2 POC ABG pO2 ABG Oxyhemoglobin ABG Sodium ABG Potassium ABG Chloride ABG Glucose Carboxyhemoglobin Sodium Potassium Chloride Carbon Dioxide BUN Creatinine Glucose POC Glucose 185 H 171 H 136 H Hemoglobin A1c Calcium Phosphorus Magnesium Ferritin AST ALT Alkaline Phosphatase Lactate Dehydrogenase C-Reactive Protein Total Protein Albumin Arterial Blood Glucose Arterial Blood Ionized Calcium Urine Creatinine Coronavirus (PCR) 01/01/21 01/01/21 01/01/21 08:03 11:55 17:06 WBC RBC Hct MCV MCHC Plt Count Lymph % (Auto) [place] % (Auto) Lymph # (Auto) Seg Neutrophils % Seg Neuts % (Manual) Lymphocytes % (Manual) Nucleated RBC % Seg Neutrophils # Seg Neutrophils # Man Lymphocytes # (Manual) Monocytes # (Manual) D-Dimer ABG pH POC ABG pCO2 POC ABG pO2 ABG Oxyhemoglobin ABG Sodium ABG Potassium ABG Chloride ABG Glucose Carboxyhemoglobin Sodium Potassium Chloride Carbon Dioxide BUN Creatinine Glucose POC Glucose 160 H 155 H 193 H Hemoglobin A1c Calcium Phosphorus Magnesium Ferritin AST ALT Alkaline Phosphatase Lactate Dehydrogenase C-Reactive Protein Total Protein Albumin Arterial Blood Glucose Arterial Blood Ionized Calcium Urine Creatinine Coronavirus (PCR) 01/01/21 01/02/21 01/02/21 22:20 07:22 11:54 WBC RBC Hct MCV MCHC Plt Count Lymph % (Auto) [place] % (Auto) Lymph # (Auto) Seg Neutrophils % Seg Neuts % (Manual) Lymphocytes % (Manual) Nucleated RBC % Seg Neutrophils # Seg Neutrophils # Man Lymphocytes # (Manual) Monocytes # (Manual) D-Dimer ABG pH POC ABG pCO2 POC ABG pO2 ABG Oxyhemoglobin ABG Sodium ABG Potassium ABG Chloride ABG Glucose Carboxyhemoglobin Sodium Potassium Chloride Carbon Dioxide BUN Creatinine Glucose POC Glucose 316 H 274 H 307 H Hemoglobin A1c Calcium Phosphorus Magnesium Ferritin AST ALT Alkaline Phosphatase Lactate Dehydrogenase C-Reactive Protein Total Protein Albumin Arterial Blood Glucose Arterial Blood Ionized Calcium Urine Creatinine Coronavirus (PCR) 01/02/21 01/02/21 01/03/21 16:00 21:20 06:48 WBC RBC Hct MCV MCHC Plt Count Lymph % (Auto) [place] % (Auto) Lymph # (Auto) Seg Neutrophils % Seg Neuts % (Manual) Lymphocytes % (Manual) Nucleated RBC % Seg Neutrophils # Seg Neutrophils # Man Lymphocytes # (Manual) Monocytes # (Manual) D-Dimer ABG pH POC ABG pCO2 POC ABG pO2 ABG Oxyhemoglobin ABG Sodium ABG Potassium ABG Chloride ABG Glucose Carboxyhemoglobin Sodium 152 H Potassium Chloride 108.8 H Carbon Dioxide 32 H BUN 64 H Creatinine 1.3 H Glucose 180 H POC Glucose 303 H 263 H Hemoglobin A1c Calcium Phosphorus Magnesium Ferritin AST ALT Alkaline Phosphatase Lactate Dehydrogenase C-Reactive Protein Total Protein Albumin Arterial Blood Glucose Arterial Blood Ionized Calcium Urine Creatinine Coronavirus (PCR) 01/03/21 01/03/21 01/03/21 08:28 11:44 13:59 WBC RBC Hct MCV MCHC Plt Count Lymph % (Auto) [place] % (Auto) Lymph # (Auto) Seg Neutrophils % Seg Neuts % (Manual) Lymphocytes % (Manual) Nucleated RBC % Seg Neutrophils # Seg Neutrophils # Man Lymphocytes # (Manual) Monocytes # (Manual) D-Dimer ABG pH POC ABG pCO2 POC ABG pO2 ABG Oxyhemoglobin ABG Sodium ABG Potassium ABG Chloride ABG Glucose Carboxyhemoglobin Sodium Potassium Chloride Carbon Dioxide BUN Creatinine Glucose POC Glucose 203 H 339 H 362 H Hemoglobin A1c Calcium Phosphorus Magnesium Ferritin AST ALT Alkaline Phosphatase Lactate Dehydrogenase C-Reactive Protein Total Protein Albumin Arterial Blood Glucose Arterial Blood Ionized Calcium Urine Creatinine Coronavirus (PCR) 01/03/21 01/03/21 01/03/21 16:00 16:00 16:00 WBC RBC Hct MCV MCHC Plt Count Lymph % (Auto) [place] % (Auto) Lymph # (Auto) Seg Neutrophils % Seg Neuts % (Manual) Lymphocytes % (Manual) Nucleated RBC % Seg Neutrophils # Seg Neutrophils # Man Lymphocytes # (Manual) Monocytes # (Manual) D-Dimer 1259.33 H ABG pH POC ABG pCO2 POC ABG pO2 ABG Oxyhemoglobin ABG Sodium ABG Potassium ABG Chloride ABG Glucose Carboxyhemoglobin Sodium Potassium Chloride Carbon Dioxide BUN Creatinine Glucose POC Glucose Hemoglobin A1c Calcium Phosphorus Magnesium Ferritin 1526.0 H AST ALT Alkaline Phosphatase Lactate Dehydrogenase 815 H C-Reactive Protein Total Protein Albumin Arterial Blood Glucose Arterial Blood Ionized Calcium Urine Creatinine Coronavirus (PCR) 01/03/21 01/03/21 01/04/21 18:13 21:23 01:46 WBC RBC Hct MCV MCHC Plt Count Lymph % (Auto) [place] % (Auto) Lymph # (Auto) Seg Neutrophils % Seg Neuts % (Manual) Lymphocytes % (Manual) Nucleated RBC % Seg Neutrophils # Seg Neutrophils # Man Lymphocytes # (Manual) Monocytes # (Manual) D-Dimer ABG pH POC ABG pCO2 POC ABG pO2 ABG Oxyhemoglobin ABG Sodium ABG Potassium ABG Chloride ABG Glucose Carboxyhemoglobin Sodium Potassium Chloride Carbon Dioxide BUN Creatinine Glucose POC Glucose 349 H 312 H 264 H Hemoglobin A1c Calcium Phosphorus Magnesium Ferritin AST ALT Alkaline Phosphatase Lactate Dehydrogenase C-Reactive Protein Total Protein Albumin Arterial Blood Glucose Arterial Blood Ionized Calcium Urine Creatinine Coronavirus (PCR) 01/04/21 01/04/21 01/04/21 05:12 05:35 07:36 WBC RBC Hct MCV MCHC Plt Count Lymph % (Auto) [place] % (Auto) Lymph # (Auto) Seg Neutrophils % Seg Neuts % (Manual) Lymphocytes % (Manual) Nucleated RBC % Seg Neutrophils # Seg Neutrophils # Man Lymphocytes # (Manual) Monocytes # (Manual) D-Dimer ABG pH POC ABG pCO2 POC ABG pO2 ABG Oxyhemoglobin ABG Sodium ABG Potassium ABG Chloride ABG Glucose Carboxyhemoglobin Sodium 147 H Potassium Chloride Carbon Dioxide 34 H BUN 59 H Creatinine Glucose 208 H POC Glucose 193 H 197 H Hemoglobin A1c Calcium Phosphorus Magnesium 2.60 H Ferritin AST ALT Alkaline Phosphatase Lactate Dehydrogenase C-Reactive Protein Total Protein Albumin Arterial Blood Glucose Arterial Blood Ionized Calcium Urine Creatinine Coronavirus (PCR) 01/04/21 01/04/21 01/04/21 11:00 14:10 18:06 WBC RBC Hct MCV MCHC Plt Count Lymph % (Auto) [place] % (Auto) Lymph # (Auto) Seg Neutrophils % Seg Neuts % (Manual) Lymphocytes % (Manual) Nucleated RBC % Seg Neutrophils # Seg Neutrophils # Man Lymphocytes # (Manual) Monocytes # (Manual) D-Dimer ABG pH POC ABG pCO2 POC ABG pO2 ABG Oxyhemoglobin ABG Sodium ABG Potassium ABG Chloride ABG Glucose Carboxyhemoglobin Sodium Potassium Chloride Carbon Dioxide BUN Creatinine Glucose POC Glucose 153 H 173 H 194 H Hemoglobin A1c Calcium Phosphorus Magnesium Ferritin AST ALT Alkaline Phosphatase Lactate Dehydrogenase C-Reactive Protein Total Protein Albumin Arterial Blood Glucose Arterial Blood Ionized Calcium Urine Creatinine Coronavirus (PCR) 01/04/21 01/05/21 01/05/21 21:36 01:38 04:09 WBC RBC Hct MCV MCHC Plt Count Lymph % (Auto) [place] % (Auto) Lymph # (Auto) Seg Neutrophils % Seg Neuts % (Manual) Lymphocytes % (Manual) Nucleated RBC % Seg Neutrophils # Seg Neutrophils # Man Lymphocytes # (Manual) Monocytes # (Manual) D-Dimer ABG pH POC ABG pCO2 POC ABG pO2 ABG Oxyhemoglobin ABG Sodium ABG Potassium ABG Chloride ABG Glucose Carboxyhemoglobin Sodium 146 H Potassium Chloride Carbon Dioxide BUN 55 H Creatinine Glucose 241 H POC Glucose 232 H 232 H Hemoglobin A1c Calcium 8.3 L Phosphorus Magnesium 2.70 H Ferritin AST ALT 58 H Alkaline Phosphatase 177 H Lactate Dehydrogenase C-Reactive Protein Total Protein Albumin 2.9 L Arterial Blood Glucose Arterial Blood Ionized Calcium Urine Creatinine Coronavirus (PCR) 01/05/21 01/05/21 01/05/21 05:56 08:22 11:46 WBC RBC Hct MCV MCHC Plt Count Lymph % (Auto) [place] % (Auto) Lymph # (Auto) Seg Neutrophils % Seg Neuts % (Manual) Lymphocytes % (Manual) Nucleated RBC % Seg Neutrophils # Seg Neutrophils # Man Lymphocytes # (Manual) Monocytes # (Manual) D-Dimer ABG pH POC ABG pCO2 POC ABG pO2 ABG Oxyhemoglobin ABG Sodium ABG Potassium ABG Chloride ABG Glucose Carboxyhemoglobin Sodium Potassium Chloride Carbon Dioxide BUN Creatinine Glucose POC Glucose 264 H 213 H 144 H Hemoglobin A1c Calcium Phosphorus Magnesium Ferritin AST ALT Alkaline Phosphatase Lactate Dehydrogenase C-Reactive Protein Total Protein Albumin Arterial Blood Glucose Arterial Blood Ionized Calcium Urine Creatinine Coronavirus (PCR) 01/05/21 01/05/21 01/05/21 14:41 15:38 18:41 WBC RBC Hct MCV MCHC Plt Count Lymph % (Auto) [place] % (Auto) Lymph # (Auto) Seg Neutrophils % Seg Neuts % (Manual) Lymphocytes % (Manual) Nucleated RBC % Seg Neutrophils # Seg Neutrophils # Man Lymphocytes # (Manual) Monocytes # (Manual) D-Dimer ABG pH 7.263 L 7.3 L POC ABG pCO2 50.3 H 60.0 H POC ABG pO2 66.6 L 79.6 L ABG Oxyhemoglobin 87.9 L 92.2 L ABG Sodium 145.8 H ABG Potassium ABG Chloride ABG Glucose 306 H 353 H Carboxyhemoglobin Sodium Potassium Chloride Carbon Dioxide BUN Creatinine Glucose POC Glucose 307 H Hemoglobin A1c Calcium Phosphorus Magnesium Ferritin AST ALT Alkaline Phosphatase Lactate Dehydrogenase C-Reactive Protein Total Protein Albumin Arterial Blood Glucose 306 H 353 H Arterial Blood Ionized Calcium 4.4 L Urine Creatinine Coronavirus (PCR) 01/05/21 01/06/21 01/06/21 21:16 01:31 04:45 WBC RBC Hct MCV MCHC Plt Count Lymph % (Auto) [place] % (Auto) Lymph # (Auto) Seg Neutrophils % Seg Neuts % (Manual) Lymphocytes % (Manual) Nucleated RBC % Seg Neutrophils # Seg Neutrophils # Man Lymphocytes # (Manual) Monocytes # (Manual) D-Dimer ABG pH 7.237 L POC ABG pCO2 68.9 H POC ABG pO2 ABG Oxyhemoglobin 93.2 L ABG Sodium 145.4 H ABG Potassium ABG Chloride ABG Glucose 152 H Carboxyhemoglobin 1.6 H Sodium Potassium Chloride Carbon Dioxide BUN Creatinine Glucose POC Glucose 256 H 195 H Hemoglobin A1c Calcium Phosphorus Magnesium Ferritin AST ALT Alkaline Phosphatase Lactate Dehydrogenase C-Reactive Protein Total Protein Albumin Arterial Blood Glucose 152 H Arterial Blood Ionized Calcium Urine Creatinine Coronavirus (PCR) 01/06/21 01/06/21 01/06/21 05:26 14:49 14:49 WBC 34.5 H RBC Hct 43.8 H MCV 99 H MCHC Plt Count Lymph % (Auto) [place] % (Auto) Lymph # (Auto) Seg Neutrophils % Seg Neuts % (Manual) 93.0 H Lymphocytes % (Manual) 4.0 L Nucleated RBC % Seg Neutrophils # Seg Neutrophils # Man 32.1 H Lymphocytes # (Manual) Monocytes # (Manual) 1.0 H D-Dimer ABG pH POC ABG pCO2 POC ABG pO2 ABG Oxyhemoglobin ABG Sodium ABG Potassium ABG Chloride ABG Glucose Carboxyhemoglobin Sodium Potassium Chloride Carbon Dioxide 20 L D BUN 70 H Creatinine 3.2 H D Glucose 108 H POC Glucose 138 H Hemoglobin A1c Calcium Phosphorus 7.70 H D Magnesium 2.60 H Ferritin AST 94 H ALT 103 H Alkaline Phosphatase 220 H Lactate Dehydrogenase C-Reactive Protein Total Protein Albumin 2.9 L Arterial Blood Glucose Arterial Blood Ionized Calcium Urine Creatinine Coronavirus (PCR) 01/06/21 01/06/21 01/06/21 17:25 17:41 19:50 WBC RBC Hct MCV MCHC Plt Count Lymph % (Auto) [place] % (Auto) Lymph # (Auto) Seg Neutrophils % Seg Neuts % (Manual) Lymphocytes % (Manual) Nucleated RBC % Seg Neutrophils # Seg Neutrophils # Man Lymphocytes # (Manual) Monocytes # (Manual) D-Dimer ABG pH 7.079 L POC ABG pCO2 93.7 H POC ABG pO2 79.3 L ABG Oxyhemoglobin 92.1 L ABG Sodium ABG Potassium 4.8 H ABG Chloride ABG Glucose 196 H Carboxyhemoglobin Sodium Potassium Chloride Carbon Dioxide BUN Creatinine Glucose POC Glucose 165 H 216 H Hemoglobin A1c Calcium Phosphorus Magnesium Ferritin AST ALT Alkaline Phosphatase Lactate Dehydrogenase C-Reactive Protein Total Protein Albumin Arterial Blood Glucose 196 H Arterial Blood Ionized Calcium 4.4 L Urine Creatinine Coronavirus (PCR) 01/06/21 01/07/21 01/07/21 23:17 03:32 04:23 WBC RBC Hct MCV MCHC Plt Count Lymph % (Auto) [place] % (Auto) Lymph # (Auto) Seg Neutrophils % Seg Neuts % (Manual) Lymphocytes % (Manual) Nucleated RBC % Seg Neutrophils # Seg Neutrophils # Man Lymphocytes # (Manual) Monocytes # (Manual) D-Dimer ABG pH 7.298 L POC ABG pCO2 73.2 H POC ABG pO2 75.7 L ABG Oxyhemoglobin 93.5 L ABG Sodium ABG Potassium ABG Chloride 94.0 L ABG Glucose 404 H Carboxyhemoglobin Sodium Potassium Chloride Carbon Dioxide BUN Creatinine Glucose POC Glucose 326 H 359 H Hemoglobin A1c Calcium Phosphorus Magnesium Ferritin AST ALT Alkaline Phosphatase Lactate Dehydrogenase C-Reactive Protein Total Protein Albumin Arterial Blood Glucose 404 H Arterial Blood Ionized Calcium 3.9 L Urine Creatinine Coronavirus (PCR) 01/07/21 01/07/21 07:26 11:10 WBC RBC Hct MCV MCHC Plt Count Lymph % (Auto) [place] % (Auto) Lymph # (Auto) Seg Neutrophils % Seg Neuts % (Manual) Lymphocytes % (Manual) Nucleated RBC % Seg Neutrophils # Seg Neutrophils # Man Lymphocytes # (Manual) Monocytes # (Manual) D-Dimer ABG pH POC ABG pCO2 POC ABG pO2 ABG Oxyhemoglobin ABG Sodium ABG Potassium ABG Chloride ABG Glucose Carboxyhemoglobin Sodium Potassium Chloride Carbon Dioxide BUN Creatinine Glucose POC Glucose 385 H 384 H Hemoglobin A1c Calcium Phosphorus Magnesium Ferritin AST ALT Alkaline Phosphatase Lactate Dehydrogenase C-Reactive Protein Total Protein Albumin Arterial Blood Glucose Arterial Blood Ionized Calcium Urine Creatinine Coronavirus (PCR)
--- NOTE | 2021-01-07 14:34 | Event Note ---
Date: 01/07/21 Used the ultrasound to evaluate left neck and bilateral radials. Unable to thread art line despite mulitple attempts with flashes of blood. Arteries are very very small. Patient has a large amount of subcutaneous emphysema in her neck and blood vessels cannot be visualized even with ultrasound. Not safe to do a blind stick as landmarks are distorted as well. She is morbidly obese but femoral access could be done if emergent. For now will use midline and IV team will determine if midline could be changed to picc.
[2021-01-07] MEDS ORDERED: ENOXAPARIN 30 MG/0.3 ML INJ SUB-Q SCH (22:00)
[2021-01-07 22:12] LABS: Hematocrit 39.6 % (30.3-42.9); Hemoglobin 13.2 gm/dl (10.1-14.3); Mean Corpuscular HGB Conc 33 % (30-34); Mean Corpuscular Volume 95 fl (79-97); Platelet Count 210 K/mm3 (140-440); Red Blood Count 4.18 M/mm3 (3.65-5.03); Red Cell Distribution Width 13.8 % (13.2-15.2)
[2021-01-07 22:29] LABS: Calcium 7.3 mg/dL (8.4-10.2)
[2021-01-08] MEDS: methylPREDNISolone Sod Succinate 40 MG/1 ML INJ IV SCH ×4 (00:14→17:18)
[2021-01-08] MEDS ORDERED: AMIODARONE 150 MG in DEXTROSE 5% IN WATER 100 ML IV ONE (02:48)
--- NOTE | 2021-01-08 03:53 | XRay Report ---
CHEST 1 VIEW INDICATION: ARF COMPARISON: 01/07/2021 FINDINGS: SUPPORT DEVICES: Endotracheal tubes in good position. Bilateral chest tubes in place. HEART / MEDIASTINUM: No significant abnormality. LUNGS / PLEURA: Massive subcutaneous emphysema is present. Diffuse pulmonary process. No significant pulmonary or pleural abnormality. No pneumothorax. ADDITIONAL FINDINGS: IMPRESSION: 1. No interval change as compared to previous exam Signer Name: Beltran Reis MD Signed: 01/08/2021 3:49 AM Workstation Name: [id number]
[2021-01-08] MEDS: AMIODARONE 900 MG in DEXTROSE 5% IN WATER 482 ML IV SCH ×2 (03:59→18:01)
[2021-01-08 05:04] LABS: Hematocrit 39.2 % (30.3-42.9); Hemoglobin 13.1 gm/dl (10.1-14.3); Mean Corpuscular HGB Conc 33 % (30-34); Mean Corpuscular Volume 95 fl (79-97); Platelet Count 226 K/mm3 (140-440); Red Blood Count 4.13 M/mm3 (3.65-5.03); Red Cell Distribution Width 13.4 % (13.2-15.2)
[2021-01-08 05:19] LABS: Albumin 2.9 g/dL (3.9-5); Calcium 7.7 mg/dL (8.4-10.2)
[2021-01-08] MEDS ORDERED: HEPARIN 10,000 UNITS/10 ML VIAL IV PRN ×3 (05:46→14:12)
--- NOTE | 2021-01-08 05:50 | Event Note ---
Date: 01/08/21 Received call from nurse advising that patient heart rate was in the low 200s, change in rhythm to A. fib. Ordered amiodarone bolus, and amiodarone drip. Patient started on heparin drip for new onset A. fib, consult placed to cardiology
[2021-01-08] MEDS ORDERED: HEPARIN 5,000 UNIT/1 ML VIAL SUB-Q SCH (06:30)
[2021-01-08] MEDS: INSULIN LISPRO 100 UNIT/ML SUB-Q SCH ×4 (07:51→20:11)
--- NOTE | 2021-01-08 08:04 | Progress Note ---
Assessment and Plan Assessment and plan: --COVID-19 test positive on 12/21/2020, intubated on vent Morbidly obese 55 y/o -[place] female patient past medical history of ILD on CT scan[per [place] records] was admitted with worsening shortness of breath noted to have severe COVID-19 pneumonia. Patient was acute hypoxic respiratory failure, on high flow nasal oxygen and BiPAP dependent. Patient went into sudden respiratory failure requiring intubation and mechanical ventilation , complicated by bilateral pneumothorax and massive subcutaneous emphysema, surgery evaluated s/p bilateral chest tube placement . Patient went into acute kidney injury, with rapid worsening of renal function with creatinine of 7.0[01/07/2021] reconsulted nephrology, recommended stat dialysis, vascular consulted for HD catheter placement, initiated hemo dialysis Patient has very poor prognosis with multiple medical problems, family son Mr. Sunny Scott is aware. Healthcare providers have been updating patient's condition periodically with the family members. Assessment and plan; --Acute hypoxic respiratory failure; intubated continue ventilatory support, Pulmonary critical following Due to severe COVID-19 infection,h/o ILD Obesity hypoventilation syndrome . --Hypotension/septic shock; On multiple pressors, titrate and wean as tolerated Poor prognosis --History of interstitial lung disease[ILD]; on [facility] scan at [facility] Received pulse steroids total 3 dose ,Follow blood sugars --Bilateral pneumothorax; s/p bilateral chest tube placements today per surgery Continue supportive care, surgery and pulmonary following --Subcutaneous emphysema/small pneumoperitoneum,Supportive care --A. fib with rapid ventricular rate; new onset Patient is on amiodarone drip, unable to give beta-blockers due to hypotension On heparin drip, Cardiology following, echocardiogram for LV function and ejection fraction --Acute kidney injury;Rapid worsening renal function Nephrology initiated hemodialysis, HD per schedule --Sepsis due to COVID-19 pneumonia Procalcitonin low, no need for antibiotics --Severe, COVID-19 infection;Guarded prognosis Completed remdesivir, Received Tocilizumab Continue IV steroids per pulmonary Monitor inflammatory markers Prone positioning as tolerated Home oxygen evaluation prior to discharge --Diabetes mellitus type 2; uncontrolled,A1c 10.3 Accu-Chek sliding scale coverage ADA diet Patient has pneumoperitoneum, tube feeding stopped We will decrease 70/30 insulin dose to 20 mg subcu twice daily Closely monitor blood sugars --Elevated D-dimers; due to COVID-19 Negative PE, negative DVT --Hyponatremia; dehydration, poor oral intake Advised plenty free water as tolerated --Morbid obesity; BMI 46.2 Patient needs weight reduction when medically stable --OHS/JERMAINE; due to morbid obesity Patient needs outpatient sleep study to rule out JERMAINE CPAP/BiPAP at night and as needed --Elevated LFTs probably Covid related; resolved . --DVT prophylaxis; Lovenox Closely monitor the patient and adjust the management as needed Combination Building Inspector recommendations noted and appreciated Plan of care reviewed with the patient and her nurse Patient is critically ill with guarded prognosis Patient and family aware The high probability of a clinically significant, sudden or life threatening deterioration of the [multi] system(s) required my full and direct attention, intervention and personal management. The aggregate critical care time was [45] minutes. This time is in addition to time spent performing reported procedures but includes the following: [x] Data Review and interpretation [x] Patient assessment and monitoring of vital signs [x] Documentation [x] Medication orders and management Brief history and daily patient care; Morbidly obese 55 y/o -[place] female patient past medical history of ILD on CT scan[per [place] records] was admitted with worsening shortness of breath noted to have severe COVID-19 pneumonia. Patient was in acute hypoxic respiratory failure, high flow nasal oxygen and BiPAP dependent. Patient went into sudden respiratory failure requiring intubation and mechanical ventilation , complicated by bilateral pneumothorax and massive subcutaneous emphysema, surgery evaluated s/p bilateral chest tube placement . Patient went into acute kidney injury, with rapid worsening of renal function with creatinine of 7.0[01/07/2021] reconsulted nephrology, hemodialysis initiated Patient also had acute atrial fibrillation with rapid ventricular rate, cardiology evaluated the patient and placed on amiodarone, beta-blockers. Need for anticoagulation defer to cardiology Patient has very poor prognosis with multiple medical problems, family son Mr. Sunny Scott is aware. Healthcare providers have been updating patient's condition periodically. I discussed with patient's son yesterday evening 01/04/2021; blood sugars moderate control, increase 70/30 insulin to 34 units twice a day on continuous BiPAP, TPN started per secret service agent Mild hypotension, fluid boluses, consider 01/05/2021; patient is on continuous BiPAP In severe respiratory distress Started on pulse dose steroids second dose today 01/06/2021; Patient was in severe respiratory failure requiring intubation ventilatory support yesterday Blood sugar slightly high, insulin dose increased to 40 units Novolin 70/30 twice a day Restraints in place, closely monitor 01/07/2021; patient is critically ill with very poor prognosis, family aware Continue current management, rehabilitation consultant recommendations noted and appreciated Very poor prognosis, family aware 01/08/2021; new onset A. fib rapid ventricular rate, amiodarone, heparin drip cardiology following Rapid acute worsening renal function, creatinine 7.0, nephrology consulted Patient is critically ill with very poor prognosis History Interval history: Seen and examined the patient at the bedside in ICU this morning Patient's chart medications tests and reports reviewed Patient is orally intubated on ventilatory support Bilateral pneumothorax status post chest tube placement Patient has extensive subcutaneous emphysema. In mild distress Vital signs reviewed Hospitalist Physical - Constitutional Vitals: Temp Pulse Resp BP Pulse Ox 98.6 F 194 H 24 96/68 97 01/08/21 03:22 01/08/21 07:44 01/08/21 07:30 01/08/21 07:44 01/08/21 07:44 General appearance: Present: severe distress, well-nourished, obese (Morbidly obese), other (Intubated on ventilatory support, subcutaneous emphysema,) - EENT Eyes: Present: PERRL, EOM intact - Neck Neck: Present: supple, normal ROM - Respiratory Respiratory effort: normal, other (Bilateral chest tubes in place) Respiratory: bilateral: diminished, rhonchi, negative: rales, wheezing - Cardiovascular Rhythm: irregularly irregular (Rapid ventricular rate) Heart Sounds: Present: S1 & S2 - Extremities Extremities: no ischemia Extremity abnormal: edema - Abdominal General gastrointestinal: soft, non-tender, non-distended, normal bowel sounds - Integumentary Integumentary: Present: clear, warm - Psychiatric Psychiatric: other (Intubated on vent) - Neurologic Neurologic: other (Intubated on vent) HEART Score - HEART Score Troponin: Troponin T < 0.010 ng/mL (0.00-0.029) 12/20/20 19:27 Results - Labs CBC & Chem 7: 01/08/21 08:26 01/09/21 04:20 Labs: Laboratory Last Values WBC 34.5 K/mm3 (4.5-11.0) H 01/08/21 04:29 RBC 4.13 M/mm3 (3.65-5.03) 01/08/21 04:29 Hgb 13.1 gm/dl (10.1-14.3) 01/08/21 04:29 Hct 39.2 % (30.3-42.9) 01/08/21 04:29 MCV 95 fl (79-97) 01/08/21 04:29 MCH 32 pg (28-32) 01/08/21 04:29 MCHC 33 % (30-34) 01/08/21 04:29 RDW 13.4 % (13.2-15.2) 01/08/21 04:29 Plt Count 226 K/mm3 (140-440) 01/08/21 04:29 Lymph % (Auto) Nailing Machine Feeder 01/06/21 14:49 [place] % (Auto) Nailing Machine Feeder 01/06/21 14:49 Eos % (Auto) Nailing Machine Feeder 01/06/21 14:49 Baso % (Auto) Nailing Machine Feeder 01/06/21 14:49 Lymph # (Auto) Nailing Machine Feeder 01/06/21 14:49 [place] # (Auto) Nailing Machine Feeder 01/06/21 14:49 Eos # (Auto) Nailing Machine Feeder 01/06/21 14:49 Baso # (Auto) Nailing Machine Feeder 01/06/21 14:49 Add Manual Diff Complete 01/06/21 14:49 Total Counted 100 01/06/21 14:49 Seg Neutrophils % Nailing Machine Feeder 01/08/21 04:29 Seg Neuts % (Manual) 93.0 % (40.0-70.0) H 01/06/21 14:49 Band Neutrophils % 4.0 % 12/23/20 14:09 Lymphocytes % (Manual) 4.0 % (13.4-35.0) L 01/06/21 14:49 Reactive Lymphs % (Man) 1.0 % 12/23/20 14:09 Monocytes % (Manual) 3.0 % (0.0-7.3) 01/06/21 14:49 Nucleated RBC % Not Reportable 01/06/21 14:49 Seg Neutrophils # Nailing Machine Feeder 01/06/21 14:49 Seg Neutrophils # Man 32.1 K/mm3 (1.8-7.7) H 01/06/21 14:49 Band Neutrophils # 0.0 K/mm3 01/06/21 14:49 Lymphocytes # (Manual) 1.4 K/mm3 (1.2-5.4) 01/06/21 14:49 Abs React Lymphs (Man) 0.0 K/mm3 01/06/21 14:49 Monocytes # (Manual) 1.0 K/mm3 (0.0-0.8) H 01/06/21 14:49 Eosinophils # (Manual) 0.0 K/mm3 (0.0-0.4) 01/06/21 14:49 Basophils # (Manual) 0.0 K/mm3 (0.0-0.1) 01/06/21 14:49 Metamyelocytes # 0.0 K/mm3 01/06/21 14:49 Myelocytes # 0.0 K/mm3 01/06/21 14:49 Promyelocytes # 0.0 K/mm3 01/06/21 14:49 Blast Cells # 0.0 K/mm3 01/06/21 14:49 Pathologist Review 01/06/21 14:49 WBC Morphology Not Reportable 01/06/21 14:49 Hypersegmented Neuts Not Reportable 01/06/21 14:49 Hyposegmented Neuts Not Reportable 01/06/21 14:49 Hypogranular Neuts Not Reportable 01/06/21 14:49 Smudge Cells Not Reportable 01/06/21 14:49 Toxic Granulation Not Reportable 01/06/21 14:49 Toxic Vacuolation Not Reportable 01/06/21 14:49 Dohle Bodies Not Reportable 01/06/21 14:49 Pelger-Huet Anomaly Not Reportable 01/06/21 14:49 Jair Rods Not Reportable 01/06/21 14:49 Platelet Estimate Not Reportable 01/06/21 14:49 Clumped Platelets Rare 01/06/21 14:49 Plt Clumps, EDTA Not Reportable 01/06/21 14:49 Large Platelets Not Reportable 01/06/21 14:49 Giant Platelets Not Reportable 01/06/21 14:49 Platelet Satelliting Not Reportable 01/06/21 14:49 Plt Morphology Comment Not Reportable 01/06/21 14:49 RBC Morphology Normal 01/06/21 14:49 Dimorphic RBCs Not Reportable 01/06/21 14:49 Polychromasia Not Reportable 01/06/21 14:49 Hypochromasia Not Reportable 01/06/21 14:49 Poikilocytosis Not Reportable 01/06/21 14:49 Anisocytosis Not Reportable 01/06/21 14:49 Microcytosis Not Reportable 01/06/21 14:49 Macrocytosis Not Reportable 01/06/21 14:49 Spherocytes Not Reportable 01/06/21 14:49 Pappenheimer Bodies Not Reportable 01/06/21 14:49 Sickle Cells Not Reportable 01/06/21 14:49 Target Cells Not Reportable 01/06/21 14:49 Tear Drop Cells Not Reportable 01/06/21 14:49 Ovalocytes Not Reportable 01/06/21 14:49 Stomatocytes Rare 01/06/21 14:49 Helmet Cells Not Reportable 01/06/21 14:49 Foote-Hernandez Bodies Not Reportable 01/06/21 14:49 Brilliant Rings Not Reportable 01/06/21 14:49 [place] Cells Not Reportable 01/06/21 14:49 Bite Cells Not Reportable 01/06/21 14:49 Crenated Cell Not Reportable 01/06/21 14:49 Elliptocytes Not Reportable 01/06/21 14:49 Acanthocytes (Spur) Not Reportable 01/06/21 14:49 Rouleaux Not Reportable 01/06/21 14:49 Hemoglobin C Crystals Not Reportable 01/06/21 14:49 Schistocytes Not Reportable 01/06/21 14:49 Malaria parasites Not Reportable 01/06/21 14:49 Giorgi Bodies Not Reportable 01/06/21 14:49 Hem Pathologist Commnt Sent to pathology 01/06/21 14:49 PT 13.1 Sec. (12.2-14.9) 12/21/20 05:50 INR 1.01 (0.87-1.13) 12/21/20 05:50 D-Dimer 1259.33 ng/mlDDU (0-234) H 01/03/21 16:00 ABG pH 7.403 (7.320-7.450) 01/08/21 03:30 POC ABG pCO2 63.2 mmHg (32.0-48.0) H 01/08/21 03:30 POC ABG pO2 65.3 mmHg (83-108) L 01/08/21 03:30 POC ABG HCO3 38.5 01/08/21 03:30 ABG O2 Saturation 92.8 (0-100) 01/08/21 03:30 POC ABG Base Excess 11.1 01/08/21 03:30 ABG Hemoglobin 14.0 (12.0-17.5) 01/08/21 03:30 ABG Oxyhemoglobin 91.8 (94-98) L 01/08/21 03:30 ABG Methemoglobin 0.3 (0.0-1.5) 01/08/21 03:30 ABG Sodium 135.8 mmol/L (136.0-145.0) L 01/08/21 03:30 ABG Potassium 4.4 mmol/L (3.40-4.50) 01/08/21 03:30 ABG Chloride 89.0 mmol/L (98-107) L 01/08/21 03:30 ABG Glucose 210 mg/dL (65-95) H 01/08/21 03:30 Carboxyhemoglobin 0.8 (0.5-1.5) 01/08/21 03:30 FiO2 % 85.0 01/08/21 03:30 Sodium 142 mmol/L (137-145) 01/08/21 04:29 Potassium 4.6 mmol/L (3.6-5.0) 01/08/21 04:29 Chloride 89.3 mmol/L (98-107) L 01/08/21 04:29 Carbon Dioxide 39 mmol/L (22-30) H 01/08/21 04:29 Anion Gap 18 mmol/L 01/08/21 04:29 BUN 106 mg/dL (7-17) H 01/08/21 04:29 Creatinine 7.0 mg/dL (0.6-1.2) H 01/08/21 04:29 Estimated GFR 7 ml/min 01/08/21 04:29 BUN/Creatinine Ratio 15 % 01/08/21 04:29 Glucose 196 mg/dL (65-100) H 01/08/21 04:29 POC Glucose 185 mg/dL (70-105) H 01/07/21 23:12 Hemoglobin A1c 10.3 % (4-6) H 12/21/20 05:50 Lactic Acid 1.40 mmol/L (0.7-2.0) 12/21/20 05:50 Calcium 7.7 mg/dL (8.4-10.2) L 01/08/21 04:29 Phosphorus 6.70 mg/dL (2.5-4.5) H 01/08/21 04:29 Magnesium 2.50 mg/dL (1.7-2.3) H 01/08/21 04:29 Ferritin 1526.0 ng/mL (10.0-200.0) H 01/03/21 16:00 Total Bilirubin 1.20 mg/dL (0.1-1.2) 01/08/21 04:29 Direct Bilirubin 0.2 mg/dL (0-0.2) 01/05/21 04:09 Indirect Bilirubin 0.4 mg/dL 01/05/21 04:09 AST 65 units/L (5-40) H 01/08/21 04:29 ALT 88 units/L (7-56) H 01/08/21 04:29 Alkaline Phosphatase 188 units/L (35-129) H 01/08/21 04:29 Lactate Dehydrogenase 815 units/L (91-180) H 01/03/21 16:00 Troponin T < 0.010 ng/mL (0.00-0.029) 12/20/20 19:27 C-Reactive Protein 0.40 mg/dL (0.00-1.30) 01/03/21 16:00 Total Protein 6.3 g/dL (6.3-8.2) 01/08/21 04:29 Albumin 2.9 g/dL (3.9-5) L 01/08/21 04:29 Albumin/Globulin Ratio 0.9 % 01/08/21 04:29 Procalcitonin 0.07 ng/mL (<0.15) 12/26/20 11:08 Arterial Blood Glucose 210 mg/dL (65-95) H 01/08/21 03:30 Arterial Blood Ionized Calcium 3.9 mg/dL (4.6-5.3) L 01/07/21 04:23 Urine Color Yellow (Yellow) 12/22/20 03:00 Urine Turbidity Clear (Clear) 12/22/20 03:00 Urine pH 5.0 (5.0-7.0) 12/22/20 03:00 Ur Specific [place] 1.019 (1.003-1.030) 12/22/20 03:00 Urine Protein 100 mg/dl mg/dL (Negative) 12/22/20 03:00 Urine Glucose (UA) 50 mg/dL (Negative) 12/22/20 03:00 Urine Ketones Neg mg/dL (Negative) 12/22/20 03:00 Urine Blood Sm (Negative) 12/22/20 03:00 Urine Nitrite Neg (Negative) 12/22/20 03:00 Urine Bilirubin Neg (Negative) 12/22/20 03:00 Urine Urobilinogen 2.0 mg/dL (<2.0) 12/22/20 03:00 Ur Leukocyte Esterase Neg (Negative) 12/22/20 03:00 Urine WBC (Auto) 1.0 /HPF (0.0-6.0) 12/22/20 03:00 Urine RBC (Auto) 1.0 /HPF (0.0-6.0) 12/22/20 03:00 U Epithel Cells (Auto) 3.0 /HPF (0-13.0) 12/22/20 03:00 Urine Bacteria (Auto) 1+ /HPF (Negative) 12/22/20 03:00 Urine Mucus Few /HPF 12/22/20 03:00 Urine Eosinophils None seen (None Seen) 12/22/20 03:00 Urine Creatinine 117.9 mg/dL (0.1-20.0) H 12/22/20 03:00 Urine Sodium 67 mmol/L 12/22/20 03:00 Coronavirus (PCR) Positive (Negative) A 12/21/20 10:28 Hepatitis A IgM Ab Non-reactive (NonReactive) 12/22/20 06:00 Hep Bs Antigen Non-reactive (Negative) 12/22/20 06:00 Hep B Core IgM Ab Non-reactive (NonReactive) 12/22/20 06:00 Hepatitis C Antibody Non-reactive (NonReactive) 12/22/20 06:00 Microbiology: Microbiology 01/05/21 16:10 Tracheal Aspirate Sputum Culture - Preliminary Curtis/IV: Voiding Method Indwelling Catheter Active Medications - Current Medications Current Medications: Generic Name Dose Route Start Last Admin Trade Name Freq PRN Reason Stop Dose Admin Acetaminophen 650 mg 12/20/20 23:15 05/14/21 09:40 Acetaminophen 325 Mg Tab PO 650 mg Q4H PRN Administration Pain MILD(1-3)/Fever >100.5/VARGAS Albuterol 2.5 mg 12/21/20 12:00 Albuterol 2.5 Mg/3 Ml Nebu IH Q4HRT PRN Shortness Of Breath Amlodipine Besylate 10 mg 12/26/20 14:00 01/07/21 10:12 Amlodipine 10 Mg Tab PO Not Given QDAY TAMEKA Lipase/Protease/Amylase 1 each 01/05/21 17:30 Lipase 10,500/Protease 25,000/Amylase 43,750 (Units) Dr Cap FEEDTUBE PRN PRN For Clogged Feeding Tube Dextrose 50 ml 12/20/20 23:15 Dextrose 50% In Water (25gm) 50 Ml Syringe IV Q30MIN PRN Hypoglycemia Protocol Famotidine 20 mg 01/07/21 10:00 01/07/21 12:29 Famotidine 20 Mg Tab PO Not Given DAILY [facility] Fentanyl 50 mcg 01/05/21 14:33 Fentanyl 100 Mcg/2 Ml Inj IV Q10MIN PRN ANALGESIA Gabapentin 800 mg 12/21/20 22:00 01/07/21 22:09 Gabapentin 400 Mg Cap PO Not Given BID [facility] Guaifenesin 200 mg 12/21/20 16:00 01/02/21 21:10 Guaifenesin 100 Mg/5 Ml Oral Liqd PO 200 mg Q4H PRN Administration Cough Heparin Sodium (Porcine) 5,000 unit 01/08/21 06:30 Heparin 5,000 Unit/1 Ml Vial SUB-Q Q8HR [facility] Hydralazine HCl 10 mg 01/05/21 10:28 01/06/21 04:59 Hydralazine 20 Mg/1 Ml Inj IV 10 mg Q6H PRN Administration SBP >/=160; DBP >/=100 Propofol 1,000 mg in 100 mls @ 3.882 mls/hr 01/05/21 15:00 01/08/21 06:12 Diprivan 10 Mg/Ml IV 0 mcg/kg/min TITR TAMEKA 0 mls/hr Titration Protocol 5 MCG/KG/MIN Fentanyl Citrate 2,000 mcg in 100 mls @ 6.47 mls/hr 01/05/21 15:00 Fentanyl Drip Premix IV TITR TAMEKA Protocol 1 MCG/KG/HR NORepinephrine/NS 8 MG-250 ML 8 mg in 250 mls @ 3.75 mls/hr 01/07/21 11:00 01/07/21 22:15 Norepinephrine/Ns 8 Mg-250 Ml (Double Conc) IV 13 mcg/min TITRATE TAMEKA 24.375 mls/hr Titration Protocol 2 MCG/MIN Amiodarone HCl 900 mg/ 500 mls @ 33.333 mls/hr 01/08/21 03:00 01/08/21 03:59 Dextrose IV 1 mg/min DIRECT TAMEKA 33.333 mls/hr Administration Protocol 1 MG/MIN Insulin Human Isoph/Insulin Regular 20 unit 01/07/21 17:00 01/07/21 16:24 Insulin Nph/Regular 70/30 Inj SUB-Q 20 unit BIDDIAB TAMEKA Administration Insulin Human Lispro 0 unit 01/07/21 00:00 01/08/21 07:51 Insulin Lispro 100 Unit/Ml SUB-Q Not Given Q4H [facility] Protocol Lorazepam 0.5 mg 12/23/20 20:12 01/05/21 12:27 Lorazepam 2 Mg/Ml Vial IV 0.5 mg Q6H PRN Administration Anxiety Magnesium Hydroxide 30 ml 12/20/20 23:15 Magnesium Hydroxide (Mom) Oral Liqd Udc PO Q4H PRN Constipation Methylprednisolone Sodium Succinate 60 mg 01/07/21 12:00 01/08/21 00:14 Methylprednisolone Sod Succinate 40 Mg/1 Ml Inj IV 60 mg Q6HR TAMEKA Administration Morphine Sulfate 2 mg 12/20/20 23:15 01/03/21 06:38 Morphine 2 Mg/1 Ml Inj IV 2 mg Q4H PRN Administration Pain, Moderate (4-6) Ondansetron HCl 4 mg 12/20/20 23:15 Ondansetron 4 Mg/2 Ml Inj IV Q8H PRN Nausea And Vomiting Simple Syrup 15 ml 01/05/21 17:30 Simple Syrup 15 Ml FEEDTUBE PRN PRN Hypoglycemia Simple Syrup 30 ml 01/05/21 17:30 Simple Syrup 15 Ml FEEDTUBE PRN PRN Hypoglycemia Sodium Bicarbonate 325 mg 01/05/21 17:30 Sodium Bicarbonate 325 Mg Tab FEEDTUBE PRN PRN For Clogged Feeding Tube Sodium Chloride 10 ml 12/21/20 10:00 01/07/21 22:46 Sodium Chloride 0.9% 10 Ml Flush Syringe IV 10 ml BID TAMEKA Administration Sodium Chloride 10 ml 12/20/20 23:15 12/21/20 18:48 Sodium Chloride 0.9% 10 Ml Flush Syringe IV 10 ml PRN PRN Administration LINE FLUSH Sodium Chloride 1 applic 12/22/20 12:00 01/07/21 10:13 Baltic Saline Nasal Gel 14.1 Gm NS 1 applic BID TAMEKA Administration Sodium Chloride 5 ml 01/07/21 11:22 Sodium Chloride 0.9% 500 Ml Ivpb IV PRN PRN ART-LINE Nutrition/Malnutrition Assess - Dietary Evaluation Nutrition/Malnutrition Findings: Nutrition Notes Start: 12/21/20 09:35 Freq: Status: Active Protocol: Document 01/06/21 07:54 (Rec: 01/06/21 07:58 [email or web address]) Nutrition Notes Need for Assessment generated from: MD Order Initial or Follow up Reassessment Current Diagnosis Diabetes,Hypertension, Respiratory Failure Other Pertinent Diagnosis pneu, COVID 19(+), SOB, Diabetic Neuropathy Current Diet TF Labs/Tests No new labs Pertinent Medications Propofol at 11.646ml/hr ( 307kcal) Height 5 ft 7 in Weight 129.4 kg [place] Body Weight (kg) 61.36 BMI 44.6 Weight Status Morbidly Obese Subjective/Other Information MD order for TF. Pt was intubated. Burn Absent Trauma Absent GI Symptoms None Current % PO Negligible Minimum of two criteria Yes Energy Intake (severe) < or equal to 50% Estimated Energy Requirement > or equal to 5 days Reduced Distributor Operator Strength Measurably Reduced (severe) #2 Nutrition Diagnosis Malnutrition Diagnosis Progress(for reassessment Continues documentation) #1 Nutrition Diagnosis Inadequate oral intake As Evidenced by Signs and Symptoms pt unable to consume PO Diagnosis Progress(for reassessment Continues documentation) Is patient on ventilator? Yes Is Patient Ambulatory and/or Out of Bed No REE-([facility]-confined to bed) 2309.676 Kcal/Kg value to use for calculation 15 Approximate Energy Requirements Using 1941 kcal/Kg Calculation Used for Recommendations Kcal/kg Additional Notes PRO needs: >154g (<2.5g/kg IBW ) Fluid needs: 1 mL/kcal or per MD Nutrition Intervention Nutrition Support: Vital AF at 65 ml/hr Flush 100 q4h Kcal 1,872 Protein (gm) 117 Carbohydrates (gm) 197 Fat (gm) 84 Fluid (mL) 1,265 Fiber (gm) 0 Add Supplement/Snack (indicate name/kcal D/c /protein ) Goal #1 Meet at least 75% of energy and protein needs via TF Anticipated Discharge Needs: Unable to determine at this time Follow-Up By: 01/10/21 Additional Comments FU for TF start and tolerance
--- NOTE | 2021-01-08 08:18 | Progress Note ---
Assessment and Plan 1. Acute kidney injury: HOMA in the setting of shock and severe Covid infection. Renal US negative. Pt has green catheter. Requested bladder scan. Monitor renal function. Significant elevation in the creatinine level noted. Patient is anuric. Renal prognosis is guarded. Avoid nephrotoxic agents. Meds dosage based on GFR. Monitor for [employer] needs. Due to above patient require hemodialysis. D/w her son over the phone about the indications, benefits, risks and alternatives involved in hemodialysis. He voiced understanding and gave verbal consent. Will get [facility] for hemodialyis catheter placement. Explained his son that we will have to wait for some improvement in the hemodynamics, as the risks are higher than benefits. Currently patient is tachycardic and hypotensive. 2. FEN: Elevated bicarb level, likely 2/2 hypercapnea. Monitor volume status and lytes. 3. Severe Covid infection: Completed Remdesivir, Received Tocilizumab. Continue IV steroids per pulmonary. Monitor inflammatory markers. Isolation. 4. Acute on chronic hypoxemic respiratory failure, POA: 2/2 COVID infection. CXR b/l opacities. On BIPAP / HFNC O2. 5. A.fib with rapid ventricular rate, new onset: Patient is on Amiodarone drip. Cardiology consulted. 6. Bilateral pneumothorax: S/p bilateral chest tubes. Continue supportive care, surgery and pulmonary following. 7. Diffuse subcutaneous emphysema/small pneumoperitoneum: Supportive care. 8. Shock: Likely 2/2 Covid infection. On Levophed, wean as tolerated. 9. DM type 2: SSI. Monitor bl sugar. 10. Elevated Transaminases: Trend. Subjective: Patient was seen and examined at the bedside. Patient is in ICU. RN at the bedside. Objective: General appearance: well-developed, appears stated age, morbidly obese, intubated, on vent HEENT: ATNC, JENNIFER Neck: trachea midline Respiratory: diminished breath sounds, b/l chest tube Heart: regular, S1S2, tachycardia, no murmur Gastrointestinal: obese, soft, bowel sounds heard, not tender Integumentary: no obvious rash Ext: trace extremity edema Neurologic: not responding : Green catheter Subjective Date of service: 01/08/21 Principal diagnosis: COVID-19 Interval history: Reconsulted for worsening renal function. Objective - Vital Signs Vital signs: Vital Signs - 12hr 01/07/21 01/07/21 01/07/21 20:15 20:27 20:30 Temperature Pulse Rate 110 H 111 H 110 H Pulse Rate [ From Monitor] Respiratory 28 H 28 H Rate Blood Pressure 98/53 98/53 91/60 O2 Sat by Pulse 94 99 Oximetry 01/07/21 01/07/21 01/07/21 20:45 21:00 21:15 Temperature Pulse Rate 111 H 111 H 112 H Pulse Rate [ From Monitor] Respiratory 27 H 29 H 27 H Rate Blood Pressure 96/63 88/56 87/50 O2 Sat by Pulse 95 95 100 Oximetry 01/07/21 01/07/21 01/07/21 21:31 21:39 21:45 Temperature Pulse Rate 112 H 112 H 112 H Pulse Rate [ From Monitor] Respiratory 27 H 28 H 27 H Rate Blood Pressure 96/52 96/52 81/55 O2 Sat by Pulse 95 98 94 Oximetry 01/07/21 01/07/21 01/07/21 22:01 22:07 22:15 Temperature Pulse Rate 115 H 114 H 123 H Pulse Rate [ From Monitor] Respiratory 28 H 21 17 Rate Blood Pressure 108/70 108/70 123/75 O2 Sat by Pulse 95 99 95 Oximetry 01/07/21 01/07/21 01/07/21 22:30 22:45 23:00 Temperature Pulse Rate 126 H 125 H 117 H Pulse Rate [ From Monitor] Respiratory 28 H 28 H 28 H Rate Blood Pressure 119/74 105/73 99/64 O2 Sat by Pulse 95 95 Oximetry 01/07/21 01/07/21 01/07/21 23:15 23:31 23:32 Temperature 97.7 F Pulse Rate 120 H 117 H Pulse Rate [ From Monitor] Respiratory 28 H 28 H Rate Blood Pressure 120/43 93/56 O2 Sat by Pulse 96 95 Oximetry 01/07/21 01/08/21 01/08/21 23:45 00:00 00:05 Temperature Pulse Rate 119 H 119 H 120 H Pulse Rate [ 119 H From Monitor] Respiratory 28 H 28 H Rate Blood Pressure 100/74 104/65 104/65 O2 Sat by Pulse 95 98 Oximetry 01/08/21 01/08/21 01/08/21 00:15 00:30 00:45 Temperature Pulse Rate 118 H 120 H 121 H Pulse Rate [ From Monitor] Respiratory 28 H 25 H 19 Rate Blood Pressure 106/61 100/70 118/51 O2 Sat by Pulse 94 92 Oximetry 01/08/21 01/08/21 01/08/21 01:00 01:15 01:30 Temperature Pulse Rate 117 H 119 H 116 H Pulse Rate [ From Monitor] Respiratory 29 H 28 H 28 H Rate Blood Pressure 122/59 96/66 119/53 O2 Sat by Pulse 92 95 93 Oximetry 01/08/21 01/08/21 01/08/21 01:45 02:00 02:15 Temperature Pulse Rate 121 H 122 H 125 H Pulse Rate [ From Monitor] Respiratory 28 H 28 H 28 H Rate Blood Pressure 100/65 97/70 94/70 O2 Sat by Pulse 94 Oximetry 01/08/21 01/08/21 01/08/21 02:30 02:45 03:00 Temperature Pulse Rate 120 H 205 H 209 H Pulse Rate [ From Monitor] Respiratory 28 H 28 H 27 H Rate Blood Pressure 97/66 109/63 114/60 O2 Sat by Pulse 92 93 93 Oximetry 01/08/21 01/08/21 01/08/21 03:15 03:22 03:31 Temperature 98.6 F Pulse Rate 219 H 167 H Pulse Rate [ From Monitor] Respiratory 19 25 H Rate Blood Pressure 85/58 101/65 O2 Sat by Pulse 92 96 Oximetry 01/08/21 01/08/21 01/08/21 03:45 03:54 04:00 Temperature Pulse Rate 166 H 193 H 182 H Pulse Rate [ 128 H From Monitor] Respiratory 28 H 27 H Rate Blood Pressure 113/79 95/59 O2 Sat by Pulse 95 96 Oximetry 01/08/21 01/08/21 01/08/21 04:15 04:31 04:45 Temperature Pulse Rate 191 H 182 H 188 H Pulse Rate [ From Monitor] Respiratory 29 H 24 24 Rate Blood Pressure 98/71 81/55 64/34 O2 Sat by Pulse 97 96 98 Oximetry 01/08/21 01/08/21 01/08/21 05:00 05:15 05:31 Temperature Pulse Rate 194 H 129 H 127 H Pulse Rate [ From Monitor] Respiratory 27 H 22 28 H Rate Blood Pressure 96/68 103/75 91/52 O2 Sat by Pulse 97 98 97 Oximetry 01/08/21 01/08/21 01/08/21 05:45 06:00 06:15 Temperature Pulse Rate 123 H 124 H 124 H Pulse Rate [ From Monitor] Respiratory 28 H 19 26 H Rate Blood Pressure 91/49 92/63 99/64 O2 Sat by Pulse 96 100 97 Oximetry 01/08/21 01/08/21 01/08/21 06:30 06:46 07:00 Temperature Pulse Rate 121 H 123 H 113 H Pulse Rate [ From Monitor] Respiratory 27 H 27 H 18 Rate Blood Pressure 139/68 86/61 O2 Sat by Pulse 97 98 97 Oximetry 01/08/21 01/08/21 01/08/21 07:16 07:30 07:44 Temperature Pulse Rate 123 H 124 H 194 H Pulse Rate [ From Monitor] Respiratory 27 H 24 Rate Blood Pressure 105/58 104/56 96/68 O2 Sat by Pulse 96 97 Oximetry - Lab 01/08/21 04:29 01/08/21 04:29 Most recent lab results ABG pH 7.403 (7.320-7.450) 01/08/21 03:30 ABG O2 Saturation 92.8 (0-100) 01/08/21 03:30 Calcium 7.7 mg/dL (8.4-10.2) L 01/08/21 04:29 Phosphorus 6.70 mg/dL (2.5-4.5) H 01/08/21 04:29 Magnesium 2.50 mg/dL (1.7-2.3) H 01/08/21 04:29 Urine Creatinine 117.9 mg/dL (0.1-20.0) H 12/22/20 03:00 Urine Sodium 67 mmol/L 12/22/20 03:00 Medications & Allergies - Medications Allergies/Adverse Reactions: Allergies No Known Allergies Allergy (Verified 12/29/14 22:38) Home Medications: Home Medications Medication Instructions Recorded Confirmed Last Taken Type Cyclobenzaprine [Flexeril 10 MG 10 mg PO QHS PRN 12/21/20 12/21/20 Unknown History TAB] Gabapentin [Neurontin] 800 mg PO TID 12/21/20 12/21/20 12/20/20 History metFORMIN [Glucophage] 1,000 mg PO BID 12/21/20 12/21/20 12/20/20 History traMADoL [Ultram 50 MG tab] 50 mg PO BID PRN MDD 100 12/21/20 12/21/20 Unknown History Levothyroxine 137 mcg PO QDAY 12/26/20 12/26/20 12/20/20 08:00 History Active Medications: Generic Name Dose Route Start Last Admin Trade Name Freq PRN Reason Stop Dose Admin Acetaminophen 650 mg 12/20/20 23:15 12/24/20 09:40 Acetaminophen 325 Mg Tab PO 650 mg Q4H PRN Administration Pain MILD(1-3)/Fever >100.5/VARGAS Albuterol 2.5 mg 12/21/20 12:00 Albuterol 2.5 Mg/3 Ml Nebu IH Q4HRT PRN Shortness Of Breath Amlodipine Besylate 10 mg 12/26/20 14:00 01/07/21 10:12 Amlodipine 10 Mg Tab PO Not Given QDAY TAMEKA Lipase/Protease/Amylase 1 each 01/05/21 17:30 Lipase 10,500/Protease 25,000/Amylase 43,750 (Units) Dr Giron FEEDTUBE PRN PRN For Clogged Feeding Tube Dextrose 50 ml 12/20/20 23:15 Dextrose 50% In Water (25gm) 50 Ml Syringe IV Q30MIN PRN Hypoglycemia Protocol Famotidine 20 mg 01/07/21 10:00 01/07/21 12:29 Famotidine 20 Mg Tab PO Not Given DAILY TAMEKA Fentanyl 50 mcg 01/05/21 14:33 Fentanyl 100 Mcg/2 Ml Inj IV Q10MIN PRN ANALGESIA Gabapentin 800 mg 12/21/20 22:00 01/07/21 22:09 Gabapentin 400 Mg Cap PO Not Given BID TAMEKA Guaifenesin 200 mg 12/21/20 16:00 01/02/21 21:10 Guaifenesin 100 Mg/5 Ml Oral Liqd PO 200 mg Q4H PRN Administration Cough Heparin Sodium (Porcine) 5,000 unit 01/08/21 06:30 01/08/21 08:11 Heparin 5,000 Unit/1 Ml Vial SUB-Q 5,000 unit Q8HR TAMEKA Administration Hydralazine HCl 10 mg 01/05/21 10:28 01/06/21 04:59 Hydralazine 20 Mg/1 Ml Inj IV 10 mg Q6H PRN Administration SBP >/=160; DBP >/=100 Propofol 1,000 mg in 100 mls @ 3.882 mls/hr 01/05/21 15:00 01/08/21 06:12 Diprivan 10 Mg/Ml IV 0 mcg/kg/min TITR TAMEKA 0 mls/hr Titration Protocol 5 MCG/KG/MIN Fentanyl Citrate 2,000 mcg in 100 mls @ 6.47 mls/hr 01/05/21 15:00 Fentanyl Drip Premix IV TITR TAMEKA Protocol 1 MCG/KG/HR NORepinephrine/NS 8 MG-250 ML 8 mg in 250 mls @ 3.75 mls/hr 01/07/21 11:00 01/07/21 22:15 Norepinephrine/Ns 8 Mg-250 Ml (Double Conc) IV 13 mcg/min TITRATE TAMEKA 24.375 mls/hr Titration Protocol 2 MCG/MIN Amiodarone HCl 900 mg/ 500 mls @ 33.333 mls/hr 01/08/21 03:00 01/08/21 03:59 Dextrose IV 1 mg/min DIRECT TAMEKA 33.333 mls/hr Administration Protocol 1 MG/MIN Insulin Human Isoph/Insulin Regular 20 unit 01/07/21 17:00 01/07/21 16:24 Insulin Nph/Regular 70/30 Inj SUB-Q 20 unit BIDDIAB TAMEKA Administration Insulin Human Lispro 0 unit 01/07/21 00:00 01/08/21 07:51 Insulin Lispro 100 Unit/Ml SUB-Q Not Given Q4H [facility] Protocol Lorazepam 0.5 mg 12/23/20 20:12 01/05/21 12:27 Lorazepam 2 Mg/Ml Vial IV 0.5 mg Q6H PRN Administration Anxiety Magnesium Hydroxide 30 ml 12/20/20 23:15 Magnesium Hydroxide (Mom) Oral Liqd Udc PO Q4H PRN Constipation Methylprednisolone Sodium Succinate 60 mg 01/07/21 12:00 01/08/21 08:11 Methylprednisolone Sod Succinate 40 Mg/1 Ml Inj IV 60 mg Q6HR TAMEKA Administration Morphine Sulfate 2 mg 12/20/20 23:15 01/03/21 06:38 Morphine 2 Mg/1 Ml Inj IV 2 mg Q4H PRN Administration Pain, Moderate (4-6) Ondansetron HCl 4 mg 12/20/20 23:15 Ondansetron 4 Mg/2 Ml Inj IV Q8H PRN Nausea And Vomiting Simple Syrup 15 ml 01/05/21 17:30 Simple Syrup 15 Ml FEEDTUBE PRN PRN Hypoglycemia Simple Syrup 30 ml 01/05/21 17:30 Simple Syrup 15 Ml FEEDTUBE PRN PRN Hypoglycemia Sodium Bicarbonate 325 mg 01/05/21 17:30 Sodium Bicarbonate 325 Mg Tab FEEDTUBE PRN PRN For Clogged Feeding Tube Sodium Chloride 10 ml 12/21/20 10:00 01/07/21 22:46 Sodium Chloride 0.9% 10 Ml Flush Syringe IV 10 ml BID TAMEKA Administration Sodium Chloride 10 ml 12/20/20 23:15 12/21/20 18:48 Sodium Chloride 0.9% 10 Ml Flush Syringe IV 10 ml PRN PRN Administration LINE FLUSH Sodium Chloride 1 applic 12/22/20 12:00 01/07/21 10:13 [place] Saline Nasal Gel 14.1 Gm NS 1 applic BID TAMEKA Administration Sodium Chloride 5 ml 01/07/21 11:22 Sodium Chloride 0.9% 500 Ml Ivpb IV PRN PRN ART-LINE
[2021-01-08] MEDS: INSULIN NPH/REGULAR 70/30 INJ SUB-Q SCH ×2 (08:20→16:50)
[2021-01-08] MEDS: NORepinephrine/NS 8 MG-250 ML 8 MG/250 ML INFUS..BTL IV SCH ×4 (09:00→20:15)
[2021-01-08 09:27] LABS: Hematocrit 38.2 % (30.3-42.9); Hemoglobin 12.8 gm/dl (10.1-14.3)
[2021-01-08] MEDS: fentaNYL DRIP Premix 2,000 MCG/100 ML BAG IV SCH (09:58)
[2021-01-08] MEDS ORDERED: FAMOTIDINE 20 MG/2 ML INJ IV SCH (10:00)
--- NOTE | 2021-01-08 10:14 | Consultation ---
History of Present Illness Consult reason: atrial fibrillation Past History Past Medical History: diabetes, hypertension, other (Asthma,Diabetic Neuropathy, morbid obesity) Past Surgical History: hysterectomy, Other (Left Wrist surgery 11/2014) Social history: no significant social history Family history: no significant family history Medications and Allergies Allergies Allergy/AdvReac Type Severity Reaction Status Date / Time No Known Allergies Allergy Verified 12/29/14 22:38 Home Medications Medication Instructions Recorded Confirmed Last Taken Type Cyclobenzaprine [Flexeril 10 MG 10 mg PO QHS PRN 12/21/20 12/21/20 Unknown History TAB] Gabapentin [Neurontin] 800 mg PO TID 12/21/20 12/21/20 12/20/20 History metFORMIN [Glucophage] 1,000 mg PO BID 12/21/20 12/21/20 12/20/20 History traMADoL [Ultram 50 MG tab] 50 mg PO BID PRN MDD 100 12/21/20 12/21/20 Unknown History Levothyroxine 137 mcg PO QDAY 12/26/20 12/26/20 12/20/20 08:00 History Active Meds: Active Medications Acetaminophen (Acetaminophen 325 Mg Tab) 650 mg PO Q4H PRN PRN Reason: Pain MILD(1-3)/Fever >100.5/VARGAS Last Admin: 12/24/20 09:40 Dose: 650 mg Documented by: Albuterol (Albuterol 2.5 Mg/3 Ml Nebu) 2.5 mg IH Q4HRT PRN PRN Reason: Shortness Of Breath Lipase/Protease/Amylase (Lipase 10,500/Protease 25,000/Amylase 43,750 (Units) Dr Giron) 1 each FEEDTUBE PRN PRN PRN Reason: For Clogged Feeding Tube Dextrose (Dextrose 50% In Water (25gm) 50 Ml Syringe) 50 ml IV Q30MIN PRN; Protocol PRN Reason: Hypoglycemia Famotidine (Famotidine 20 Mg/2 Ml Inj) 20 mg IV DAILY TAMEKA Fentanyl (Fentanyl 100 Mcg/2 Ml Inj) 50 mcg IV Q10MIN PRN PRN Reason: ANALGESIA Heparin Sodium (Porcine) (Heparin 5,000 Unit/1 Ml Vial) 5,000 unit SUB-Q Q8HR TAMEKA Last Admin: 01/08/21 08:11 Dose: 5,000 unit Documented by: Hydralazine HCl (Hydralazine 20 Mg/1 Ml Inj) 10 mg IV Q6H PRN PRN Reason: SBP >/=160; DBP >/=100 Last Admin: 01/06/21 04:59 Dose: 10 mg Documented by: Propofol (Diprivan 10 Mg/Ml) 1,000 mg in 100 mls @ 3.882 mls/hr IV TITR TAMEKA; Protocol Last Titration: 01/08/21 06:12 Dose: 0 mcg/kg/min, 0 mls/hr Documented by: Fentanyl Citrate (Fentanyl Drip Premix) 2,000 mcg in 100 mls @ 6.47 mls/hr IV TITR TAMEKA; Protocol Last Admin: 01/08/21 09:58 Dose: 1 mcg/kg/hr, 6.47 mls/hr Documented by: NORepinephrine/NS 8 MG-250 ML (Norepinephrine/Ns 8 Mg-250 Ml (Double Conc)) 8 mg in 250 mls @ 3.75 mls/hr IV TITRATE TAMEKA; Protocol Last Titration: 01/07/21 22:15 Dose: 13 mcg/min, 24.375 mls/hr Documented by: Amiodarone HCl 900 mg/ (Dextrose) 500 mls @ 33.333 mls/hr IV DIRECT TAMEKA; Protocol Last Admin: 01/08/21 03:59 Dose: 1 mg/min, 33.333 mls/hr Documented by: Insulin Human Isoph/Insulin Regular (Insulin Nph/Regular 70/30 Inj) 20 unit SUB-Q BIDDIAB TAMEKA Last Admin: 01/08/21 08:20 Dose: 20 unit Documented by: Insulin Human Lispro (Insulin Lispro 100 Unit/Ml) 0 unit SUB-Q Q4H TAMEKA; Protocol Last Admin: 01/08/21 07:51 Dose: Not Given Documented by: Magnesium Hydroxide (Magnesium Hydroxide (Mom) Oral Liqd Udc) 30 ml PO Q4H PRN PRN Reason: Constipation Methylprednisolone Sodium Succinate (Methylprednisolone Sod Succinate 40 Mg/1 Ml Inj) 60 mg IV Q6HR TAMEKA Last Admin: 01/08/21 08:11 Dose: 60 mg Documented by: Ondansetron HCl (Ondansetron 4 Mg/2 Ml Inj) 4 mg IV Q8H PRN PRN Reason: Nausea And Vomiting Simple Syrup (Simple Syrup 15 Ml) 15 ml FEEDTUBE PRN PRN PRN Reason: Hypoglycemia Simple Syrup (Simple Syrup 15 Ml) 30 ml FEEDTUBE PRN PRN PRN Reason: Hypoglycemia Sodium Bicarbonate (Sodium Bicarbonate 325 Mg Tab) 325 mg FEEDTUBE PRN PRN PRN Reason: For Clogged Feeding Tube Sodium Chloride (Sodium Chloride 0.9% 10 Ml Flush Syringe) 10 ml IV BID [facility] Last Admin: 01/07/21 22:46 Dose: 10 ml Documented by: Sodium Chloride (Sodium Chloride 0.9% 10 Ml Flush Syringe) 10 ml IV PRN PRN PRN Reason: LINE FLUSH Last Admin: 12/21/20 18:48 Dose: 10 ml Documented by: Sodium Chloride ([place] Saline Nasal Gel 14.1 Gm) 1 applic NS BID [facility] Last Admin: 01/07/21 10:13 Dose: 1 applic Documented by: Sodium Chloride (Sodium Chloride 0.9% 500 Ml Ivpb) 5 ml IV PRN PRN PRN Reason: ART-LINE Physical Examination Vital Signs Temp Pulse Resp BP 100.6 F H 107 H 20 105/53 12/20/20 19:16 12/20/20 19:16 12/20/20 19:16 12/20/20 19:16 Results 01/08/21 08:26 01/08/21 04:29 Cardiac Enzymes 01/08/21 Range/Units 04:29 AST 65 H (5-40) units/L CBC 01/07/21 01/08/21 01/08/21 Range/Units 22:01 04:29 08:26 WBC 28.2 H 34.5 H (4.5-11.0) K/mm3 RBC 4.18 4.13 (3.65-5.03) M/mm3 Hgb 13.2 13.1 12.8 (10.1-14.3) gm/dl Hct 39.6 39.2 38.2 (30.3-42.9) % Plt Count 210 226 186 (140-440) K/mm3 Comprehensive Metabolic Panel 01/07/21 01/08/21 Range/Units 22:01 04:29 Sodium 142 142 (137-145) mmol/L Potassium 4.5 4.6 (3.6-5.0) mmol/L Chloride 90.4 L 89.3 L (98-107) mmol/L Carbon Dioxide 40 H D 39 H (22-30) mmol/L BUN 98 H 106 H (7-17) mg/dL Creatinine 6.2 H D 7.0 H (0.6-1.2) mg/dL Glucose 187 H 196 H (65-100) mg/dL Calcium 7.3 L 7.7 L (8.4-10.2) mg/dL AST 65 H (5-40) units/L ALT 88 H (7-56) units/L Alkaline Phosphatase 188 H (35-129) units/L Total Protein 6.3 (6.3-8.2) g/dL Albumin 2.9 L (3.9-5) g/dL Assessment and Plan Full consult is dictated. Thank you. - Patient Problems (1) HOMA (acute kidney injury) Current Visit: Yes Status: Acute (2) Diabetes Current Visit: Yes Status: Acute (3) Diabetic neuropathy Current Visit: Yes Status: Acute (4) Elevated liver enzymes Current Visit: Yes Status: Acute (5) Hyperglycemia due to type 2 diabetes mellitus Current Visit: Yes Status: Acute (6) ILD (interstitial lung disease) Current Visit: Yes Status: Acute (7) Pneumonia due to COVID-19 virus Current Visit: Yes Status: Acute (8) SIRS (systemic inflammatory response syndrome) Current Visit: Yes Status: Acute (9) Cellulitis Current Visit: No Status: Acute Qualifiers: Site of cellulitis of trunk: back (10) Morbid obesity Current Visit: No Status: Acute
--- NOTE | 2021-01-08 10:25 | Operative Report ---
Operative Report Operative Report: Exam: Ultrasound-guided placement of Vas-Cath Clinical indication: Patient with a history of multiple medical problems including COVID-19 and significant subcutaneous emphysema as well as anasarca and volume overload requiring dialysis access as well as central venous access. Date: 01/08/2021 Procedure: Following an explanation of the risk, benefits and alternatives; written informed consent was obtained from the patient's next of kin. The procedure was performed at bedside in the ICU. Initial ultrasound evaluation of the patient's right groin demonstrated a patent right common femoral vein. The patient's right groin was prepped and draped in the usual sterile fashion. 1% lidocaine was used for anesthesia. Under ultrasound guidance, a 7 cm 18-gauge needle was advanced into the right common femoral vein. There was prompt return of nonpulsatile blood. A 0.035 guidewire was advanced centrally. The needle was removed and following serial dilation over the guidewire a 30 cm dialysis catheter with pigtail was advanced over the guidewire centrally easily. The guidewire was removed. Nonpulsatile blood return from all 3 ports. The catheter was flushed and locked with sterile saline. The catheter was securely fastened to the skin surface using 2-0 nylon suture and a sterile dressing applied. The patient tolerated the procedure well. There were no immediate postprocedure complications. Sedation was not utilized. The patient is on continuous cardiopulmonary monitoring in the ICU. Impression: Ultrasound-guided placement of 30 cm Vas-Cath with pigtail in the right common femoral vein.
[2021-01-08] MEDS: AYR SALINE NASAL GEL 14.1 GM NS SCH ×2 (10:45→21:42)
[2021-01-08 10:48] LABS: Platelet Estimate Consistent w Auto; RBC Morphology Normal; Total Cells Counted 100
[2021-01-08] MEDS ORDERED: HEPARIN/ 0.45% NACL DRIP 25,000 UNIT/500 ML BAG IV SCH (11:00)
[2021-01-08] MEDS: VASOPRESSIN 20 UNIT in SODIUM CHLORIDE 0.9% 100 ML IV SCH ×2 (11:46→19:43)
[2021-01-08 12:14] LABS: INR 1.09 (0.87-1.13); Partial Thromboplastin Time 26.5 Sec. (24.2-36.6)
[2021-01-08] MEDS: HEPARIN/ 0.45% NACL DRIP 25,000 UNIT/500 ML BAG IV SCH (12:18)
--- NOTE | 2021-01-08 13:00 | Progress Note ---
Assessment and Plan Assessment and Plan 55 y/o female with acute respiratory failure secondary to cOVID 19 with prior history of ILD on a CT in [place] system 01/08/2021: Worsening clinical status since yesterday. Worsening renal function being considered for dialysis however blood pressure is low requiring 2 different vasopressors. If blood pressure remains low may require additional Jose Miguel-Synephrine. Possibility of GI bleeding also being raised however now on heparin for new onset of A. fib with RVR. Also on amiodarone. Cardiology has been consulted. Patient however is converted to sinus rhythm at this point. Patient remains on mechanical ventilator at 100% with PEEP of 20 with adequate blood gases. Patient has Vas-Cath inserted. And dialysis is pending. Overall prognosis is extremely poor. total critical care time was 35 minutes 01/07/21: Renal failure now with minimal urine output. pH is better so will stop bicarb drip. Bilateral chest tubes in place. Will attempt art line placement and determining now if central access is needed. OVerall prognosis is very very guarded. Agree with follow ABG in am and need to obtain labs if possible to assess renal function. overall prognosis is very very guarded to poor. 01/06/21: May need to give another dose of lasix today. Await Chemistry from this am. Practicing lung protective strategy so low tidal volumes with permissive hypercapnea is acceptable as long as pH is 7.2 and above. Will repeat gas this afternoon on new settings. Feed patient. Guarded prognosis. 01/05/21: Continue bipap therapy for now. Continue stress dose steroids. Hopeful patient will improve but may ultimately require intubation. Very very sick lungs prior to acquiring covid. 01/04/21: No lasix again today. Continue Free water at current IV rate as stated below. Check labs tomorrow. Continue PPV and attempt to wean FiO2 accordingly. Consider nutrition consult for PPN. Prognosis still remains very guarded. 01/03/21: continue between HFNC and bipap. Will hold on lasix today as patient is getting more hypernatremia and worsening renal function. All secondary to lack of eating and drinking. Ok with starting with D5 at like 42/hr. Guarded prognosis. 01/02/21: Continue to avoid intubation at all costs. Continue high dose steroids. Given concern for ILD, may even need to consider pulse dose steroids but will discuss on rounds tomorrow. Lasix was given last night and yesterday morning. negative 1700 on yesterday. Please check labs in the am as I would like to give lasix again tonight. 01/01/21: Unfortunately, given her high risk for intubation, patient will not be able to eat. Nutrition has been an issue and we will discuss this on rounds. May need PPN. Continue steroids at current dosing. Will give an additional dose of lasix tonight. 12/31/20: will continue steroids today as same dose and frequency. No changes to lasix therapy. Need to keep patient as calm as possible to allow bipap to work to avoid intubation at all costs. Prognosis still remains guarded. 12/30/20: Continue steroids at 60q6. Continue daily lasix. may need to consider BID dosing to help with more volume removal if renal function will permit. Overall prognosis is very very guarded to poor, especially if the patient ends up on the mechanical ventilator. 12/29/20: Will increase steroids to q6 hour dosing to see if this helps. Prognosis is very very guarded. 12/28/20: Continue steroids and lasix, may need to ask renal about BID dosing for a few days to see if this will help. Prone as tolerated during the day and sleep prone at night. 1. Agree with change in steroids to solumedrol 60q8, will continue for now 2. Agree with daily lasix but goal should be daily net negative state. 3. Prone as tolerated during the day and sleep prone at night 4. Guarded prognosis Subjective Date of service: 01/08/21 Principal diagnosis: COVID-19 Interval history: Worsening overall status. Remains intubated on mechanical ventilator. Developed A. fib with RVR currently on amiodarone drip and also on heparin drip. Nurses are notified possible some coffee-ground from NG tube. Remains on mechanical ventilator at 100% with PEEP of 20 Objective Vital Signs - 12hr 01/08/21 01/08/21 01/08/21 01:00 01:15 01:30 Temperature Pulse Rate 117 H 119 H 116 H Pulse Rate [ From Monitor] Respiratory 29 H 28 H 28 H Rate Blood Pressure 122/59 96/66 119/53 O2 Sat by Pulse 92 95 93 Oximetry 01/08/21 01/08/21 01/08/21 01:45 02:00 02:15 Temperature Pulse Rate 121 H 122 H 125 H Pulse Rate [ From Monitor] Respiratory 28 H 28 H 28 H Rate Blood Pressure 100/65 97/70 94/70 O2 Sat by Pulse 94 Oximetry 01/08/21 01/08/21 01/08/21 02:30 02:45 03:00 Temperature Pulse Rate 120 H 205 H 209 H Pulse Rate [ From Monitor] Respiratory 28 H 28 H 27 H Rate Blood Pressure 97/66 109/63 114/60 O2 Sat by Pulse 92 93 93 Oximetry 01/08/21 01/08/21 01/08/21 03:15 03:22 03:31 Temperature 98.6 F Pulse Rate 219 H 167 H Pulse Rate [ From Monitor] Respiratory 19 25 H Rate Blood Pressure 85/58 101/65 O2 Sat by Pulse 92 96 Oximetry 01/08/21 01/08/21 01/08/21 03:45 03:54 04:00 Temperature Pulse Rate 166 H 193 H 182 H Pulse Rate [ 128 H From Monitor] Respiratory 28 H 27 H Rate Blood Pressure 113/79 95/59 O2 Sat by Pulse 95 96 Oximetry 01/08/21 01/08/21 01/08/21 04:15 04:31 04:45 Temperature Pulse Rate 191 H 182 H 188 H Pulse Rate [ From Monitor] Respiratory 29 H 24 24 Rate Blood Pressure 98/71 81/55 64/34 O2 Sat by Pulse 97 96 98 Oximetry 01/08/21 01/08/21 01/08/21 05:00 05:15 05:31 Temperature Pulse Rate 194 H 129 H 127 H Pulse Rate [ From Monitor] Respiratory 27 H 22 28 H Rate Blood Pressure 96/68 103/75 91/52 O2 Sat by Pulse 97 98 97 Oximetry 01/08/21 01/08/21 01/08/21 05:45 06:00 06:15 Temperature Pulse Rate 123 H 124 H 124 H Pulse Rate [ From Monitor] Respiratory 28 H 19 26 H Rate Blood Pressure 91/49 92/63 99/64 O2 Sat by Pulse 96 100 97 Oximetry 01/08/21 01/08/21 01/08/21 06:30 06:46 07:00 Temperature Pulse Rate 121 H 123 H 113 H Pulse Rate [ From Monitor] Respiratory 27 H 27 H 18 Rate Blood Pressure 139/68 86/61 O2 Sat by Pulse 97 98 97 Oximetry 01/08/21 01/08/21 01/08/21 07:16 07:30 07:44 Temperature Pulse Rate 123 H 124 H 194 H Pulse Rate [ From Monitor] Respiratory 27 H 24 Rate Blood Pressure 105/58 104/56 96/68 O2 Sat by Pulse 96 97 Oximetry 01/08/21 01/08/21 11:00 11:06 Temperature 98.7 F Pulse Rate 106 H Pulse Rate [ From Monitor] Respiratory Rate Blood Pressure O2 Sat by Pulse 97 Oximetry Constitutional: no acute distress, alert (obese), other (Intubated on mechanical ventilator.) Eyes: non-icteric ENT: oropharynx moist, other (Orally intubated) Neck: supple Effort: normal, mildly labored, other (Patient has severe subcutaneous emphysema of the chest wall. Bilateral chest tubes noted. No air leak on the right. Air leak present on the left chest tube) Ascultation: Bilateral: diminished breath sounds (anteriorly), other (Crunching noises bilaterally from subcutaneous emphysema) Cardiovascular: regular rate and rhythm (no mrg) Gastrointestinal: normoactive bowel sounds, soft, non-tender, non-distended, other (Subcutaneous emphysema noted) Integumentary: normal Extremities: no cyanosis, no edema, pink and warm Neurologic: normal mental status, non-focal exam Psychiatric: mood appropriate, affect normal CBC and BMP: 01/08/21 08:26 01/08/21 04:29 ABG, PT/INR, D-dimer: ABG ABG pH 7.403 (7.320-7.450) 01/08/21 03:30 POC ABG pCO2 63.2 mmHg (32.0-48.0) H 01/08/21 03:30 POC ABG pO2 65.3 mmHg (83-108) L 01/08/21 03:30 POC ABG HCO3 38.5 01/08/21 03:30 ABG O2 Saturation 92.8 (0-100) 01/08/21 03:30 PT/INR, D-dimer PT 14.0 Sec. (12.2-14.9) 01/08/21 11:50 INR 1.09 (0.87-1.13) 01/08/21 11:50 D-Dimer 1259.33 ng/mlDDU (0-234) H 01/03/21 16:00 Abnormal lab findings: Abnormal Labs 12/20/20 12/20/20 12/20/20 19:27 19:27 19:27 WBC 2.9 L RBC Hct MCV MCHC Plt Count 116 L Lymph % (Auto) 41.2 H [place] % (Auto) 13.2 H Lymph # (Auto) Seg Neutrophils % Seg Neuts % (Manual) Lymphocytes % (Manual) Nucleated RBC % Seg Neutrophils # 1.3 L Seg Neutrophils # Man Lymphocytes # (Manual) Monocytes # (Manual) D-Dimer 260.58 H ABG pH POC ABG pCO2 POC ABG pO2 ABG Oxyhemoglobin ABG Sodium ABG Potassium ABG Chloride ABG Glucose Carboxyhemoglobin Sodium 135 L Potassium Chloride 96.1 L Carbon Dioxide BUN 23 H Creatinine 1.4 H Glucose 295 H POC Glucose Hemoglobin A1c Calcium 8.3 L Phosphorus Magnesium Ferritin AST 125 H ALT 96 H Alkaline Phosphatase 323 H Lactate Dehydrogenase C-Reactive Protein Total Protein 8.7 H Albumin 3.7 L Arterial Blood Glucose Arterial Blood Ionized Calcium Urine Creatinine Coronavirus (PCR) 12/20/20 12/20/20 12/21/20 19:43 19:43 05:50 WBC RBC Hct MCV MCHC Plt Count Lymph % (Auto) [place] % (Auto) Lymph # (Auto) Seg Neutrophils % Seg Neuts % (Manual) Lymphocytes % (Manual) Nucleated RBC % Seg Neutrophils # Seg Neutrophils # Man Lymphocytes # (Manual) Monocytes # (Manual) D-Dimer ABG pH POC ABG pCO2 POC ABG pO2 ABG Oxyhemoglobin ABG Sodium ABG Potassium ABG Chloride ABG Glucose Carboxyhemoglobin Sodium Potassium Chloride Carbon Dioxide BUN Creatinine Glucose 297 H POC Glucose Hemoglobin A1c 10.3 H Calcium Phosphorus Magnesium Ferritin 1420.0 H AST ALT Alkaline Phosphatase Lactate Dehydrogenase 491 H C-Reactive Protein 5.50 H Total Protein Albumin Arterial Blood Glucose Arterial Blood Ionized Calcium Urine Creatinine Coronavirus (PCR) 12/21/20 12/21/20 12/21/20 05:50 05:50 08:04 WBC 1.6 L* RBC 3.40 L Hct MCV MCHC Plt Count 104 L Lymph % (Auto) [place] % (Auto) Lymph # (Auto) Seg Neutrophils % Seg Neuts % (Manual) 82.0 H Lymphocytes % (Manual) Nucleated RBC % Seg Neutrophils # Seg Neutrophils # Man 1.3 L Lymphocytes # (Manual) 0.3 L Monocytes # (Manual) D-Dimer ABG pH POC ABG pCO2 POC ABG pO2 ABG Oxyhemoglobin ABG Sodium ABG Potassium ABG Chloride ABG Glucose Carboxyhemoglobin Sodium 132 L Potassium 5.7 H D Chloride 95.7 L Carbon Dioxide BUN 33 H Creatinine 1.7 H Glucose 500 H POC Glucose 483 H Hemoglobin A1c Calcium 7.7 L Phosphorus Magnesium Ferritin AST ALT Alkaline Phosphatase Lactate Dehydrogenase C-Reactive Protein Total Protein Albumin Arterial Blood Glucose Arterial Blood Ionized Calcium Urine Creatinine Coronavirus (PCR) 12/21/20 12/21/20 12/21/20 10:28 12:05 16:54 WBC RBC Hct MCV MCHC Plt Count Lymph % (Auto) [place] % (Auto) Lymph # (Auto) Seg Neutrophils % Seg Neuts % (Manual) Lymphocytes % (Manual) Nucleated RBC % Seg Neutrophils # Seg Neutrophils # Man Lymphocytes # (Manual) Monocytes # (Manual) D-Dimer ABG pH POC ABG pCO2 POC ABG pO2 ABG Oxyhemoglobin ABG Sodium ABG Potassium ABG Chloride ABG Glucose Carboxyhemoglobin Sodium Potassium Chloride Carbon Dioxide BUN Creatinine Glucose POC Glucose 482 H 374 H Hemoglobin A1c Calcium Phosphorus Magnesium Ferritin AST ALT Alkaline Phosphatase Lactate Dehydrogenase C-Reactive Protein Total Protein Albumin Arterial Blood Glucose Arterial Blood Ionized Calcium Urine Creatinine Coronavirus (PCR) Positive A 12/21/20 12/21/20 12/22/20 18:24 22:12 03:00 WBC RBC Hct MCV MCHC Plt Count Lymph % (Auto) [place] % (Auto) Lymph # (Auto) Seg Neutrophils % Seg Neuts % (Manual) Lymphocytes % (Manual) Nucleated RBC % Seg Neutrophils # Seg Neutrophils # Man Lymphocytes # (Manual) Monocytes # (Manual) D-Dimer ABG pH POC ABG pCO2 POC ABG pO2 ABG Oxyhemoglobin ABG Sodium ABG Potassium ABG Chloride ABG Glucose Carboxyhemoglobin Sodium 131 L Potassium Chloride 95.2 L Carbon Dioxide BUN 37 H Creatinine 1.4 H Glucose 417 H POC Glucose 358 H Hemoglobin A1c Calcium 7.5 L Phosphorus Magnesium Ferritin AST 82 H ALT 69 H Alkaline Phosphatase 262 H Lactate Dehydrogenase C-Reactive Protein Total Protein Albumin 3.0 L Arterial Blood Glucose Arterial Blood Ionized Calcium Urine Creatinine 117.9 H Coronavirus (PCR) 12/22/20 12/22/20 12/22/20 05:29 08:19 11:18 WBC RBC Hct MCV MCHC Plt Count Lymph % (Auto) [place] % (Auto) Lymph # (Auto) Seg Neutrophils % Seg Neuts % (Manual) Lymphocytes % (Manual) Nucleated RBC % Seg Neutrophils # Seg Neutrophils # Man Lymphocytes # (Manual) Monocytes # (Manual) D-Dimer ABG pH POC ABG pCO2 POC ABG pO2 ABG Oxyhemoglobin ABG Sodium ABG Potassium ABG Chloride ABG Glucose Carboxyhemoglobin Sodium Potassium Chloride Carbon Dioxide BUN 34 H Creatinine 1.3 H Glucose 169 H POC Glucose 136 H 132 H Hemoglobin A1c Calcium 7.5 L Phosphorus Magnesium Ferritin AST 74 H ALT 60 H Alkaline Phosphatase 249 H Lactate Dehydrogenase C-Reactive Protein Total Protein Albumin 3.1 L Arterial Blood Glucose Arterial Blood Ionized Calcium Urine Creatinine Coronavirus (PCR) 12/22/20 12/22/20 12/22/20 14:18 14:18 16:36 WBC RBC Hct MCV MCHC Plt Count Lymph % (Auto) [place] % (Auto) Lymph # (Auto) Seg Neutrophils % Seg Neuts % (Manual) Lymphocytes % (Manual) Nucleated RBC % Seg Neutrophils # Seg Neutrophils # Man Lymphocytes # (Manual) Monocytes # (Manual) D-Dimer ABG pH POC ABG pCO2 POC ABG pO2 ABG Oxyhemoglobin ABG Sodium ABG Potassium ABG Chloride ABG Glucose Carboxyhemoglobin Sodium Potassium Chloride Carbon Dioxide BUN Creatinine Glucose POC Glucose 440 H Hemoglobin A1c Calcium Phosphorus Magnesium Ferritin 1295.0 H AST ALT Alkaline Phosphatase Lactate Dehydrogenase 620 H C-Reactive Protein 2.70 H Total Protein Albumin Arterial Blood Glucose Arterial Blood Ionized Calcium Urine Creatinine Coronavirus (PCR) 12/22/20 12/23/20 12/23/20 21:07 08:09 11:30 WBC RBC Hct MCV MCHC Plt Count Lymph % (Auto) [place] % (Auto) Lymph # (Auto) Seg Neutrophils % Seg Neuts % (Manual) Lymphocytes % (Manual) Nucleated RBC % Seg Neutrophils # Seg Neutrophils # Man Lymphocytes # (Manual) Monocytes # (Manual) D-Dimer ABG pH POC ABG pCO2 POC ABG pO2 ABG Oxyhemoglobin ABG Sodium ABG Potassium ABG Chloride ABG Glucose Carboxyhemoglobin Sodium Potassium Chloride Carbon Dioxide BUN Creatinine Glucose POC Glucose 493 H 156 H 185 H Hemoglobin A1c Calcium Phosphorus Magnesium Ferritin AST ALT Alkaline Phosphatase Lactate Dehydrogenase C-Reactive Protein Total Protein Albumin Arterial Blood Glucose Arterial Blood Ionized Calcium Urine Creatinine Coronavirus (PCR) 12/23/20 12/23/20 12/23/20 14:09 14:09 16:26 WBC 1.8 L* RBC 3.45 L Hct MCV MCHC Plt Count 114 L Lymph % (Auto) [place] % (Auto) Lymph # (Auto) Seg Neutrophils % Seg Neuts % (Manual) 87.0 H Lymphocytes % (Manual) 3.0 L Nucleated RBC % 1.0 H Seg Neutrophils # Seg Neutrophils # Man 1.6 L Lymphocytes # (Manual) 0.1 L Monocytes # (Manual) D-Dimer ABG pH POC ABG pCO2 POC ABG pO2 ABG Oxyhemoglobin ABG Sodium ABG Potassium ABG Chloride ABG Glucose Carboxyhemoglobin Sodium Potassium Chloride Carbon Dioxide BUN 19 H Creatinine Glucose 292 H POC Glucose 351 H Hemoglobin A1c Calcium 7.4 L Phosphorus Magnesium Ferritin AST 71 H ALT Alkaline Phosphatase 264 H Lactate Dehydrogenase C-Reactive Protein Total Protein Albumin 3.0 L Arterial Blood Glucose Arterial Blood Ionized Calcium Urine Creatinine Coronavirus (PCR) 12/23/20 12/24/20 12/24/20 21:11 08:21 11:58 WBC RBC Hct MCV MCHC Plt Count Lymph % (Auto) [place] % (Auto) Lymph # (Auto) Seg Neutrophils % Seg Neuts % (Manual) Lymphocytes % (Manual) Nucleated RBC % Seg Neutrophils # Seg Neutrophils # Man Lymphocytes # (Manual) Monocytes # (Manual) D-Dimer ABG pH POC ABG pCO2 POC ABG pO2 ABG Oxyhemoglobin ABG Sodium ABG Potassium ABG Chloride ABG Glucose Carboxyhemoglobin Sodium Potassium Chloride Carbon Dioxide BUN Creatinine Glucose POC Glucose 288 H 286 H 277 H Hemoglobin A1c Calcium Phosphorus Magnesium Ferritin AST ALT Alkaline Phosphatase Lactate Dehydrogenase C-Reactive Protein Total Protein Albumin Arterial Blood Glucose Arterial Blood Ionized Calcium Urine Creatinine Coronavirus (PCR) 12/24/20 12/24/20 12/24/20 12:29 12:29 16:05 WBC 2.5 L RBC 3.49 L Hct MCV MCHC 35 H Plt Count 132 L Lymph % (Auto) [place] % (Auto) 7.6 H Lymph # (Auto) 0.4 L Seg Neutrophils % 74.7 H Seg Neuts % (Manual) Lymphocytes % (Manual) Nucleated RBC % Seg Neutrophils # Seg Neutrophils # Man Lymphocytes # (Manual) Monocytes # (Manual) D-Dimer ABG pH POC ABG pCO2 POC ABG pO2 ABG Oxyhemoglobin ABG Sodium ABG Potassium ABG Chloride ABG Glucose Carboxyhemoglobin Sodium Potassium Chloride Carbon Dioxide BUN Creatinine Glucose 256 H POC Glucose 282 H Hemoglobin A1c Calcium 7.8 L Phosphorus Magnesium Ferritin AST 50 H ALT Alkaline Phosphatase 262 H Lactate Dehydrogenase C-Reactive Protein Total Protein Albumin 2.8 L Arterial Blood Glucose Arterial Blood Ionized Calcium Urine Creatinine Coronavirus (PCR) 12/24/20 12/25/20 12/25/20 22:01 07:58 11:38 WBC RBC Hct MCV MCHC Plt Count Lymph % (Auto) [place] % (Auto) Lymph # (Auto) Seg Neutrophils % Seg Neuts % (Manual) Lymphocytes % (Manual) Nucleated RBC % Seg Neutrophils # Seg Neutrophils # Man Lymphocytes # (Manual) Monocytes # (Manual) D-Dimer ABG pH POC ABG pCO2 POC ABG pO2 ABG Oxyhemoglobin ABG Sodium ABG Potassium ABG Chloride ABG Glucose Carboxyhemoglobin Sodium Potassium Chloride Carbon Dioxide BUN Creatinine Glucose POC Glucose 366 H 278 H 325 H Hemoglobin A1c Calcium Phosphorus Magnesium Ferritin AST ALT Alkaline Phosphatase Lactate Dehydrogenase C-Reactive Protein Total Protein Albumin Arterial Blood Glucose Arterial Blood Ionized Calcium Urine Creatinine Coronavirus (PCR) 12/25/20 12/25/20 12/26/20 15:47 21:31 04:29 WBC RBC Hct MCV MCHC Plt Count Lymph % (Auto) [place] % (Auto) Lymph # (Auto) Seg Neutrophils % Seg Neuts % (Manual) Lymphocytes % (Manual) Nucleated RBC % Seg Neutrophils # Seg Neutrophils # Man Lymphocytes # (Manual) Monocytes # (Manual) D-Dimer ABG pH POC ABG pCO2 POC ABG pO2 ABG Oxyhemoglobin ABG Sodium ABG Potassium ABG Chloride ABG Glucose Carboxyhemoglobin Sodium Potassium Chloride Carbon Dioxide BUN 22 H Creatinine Glucose 327 H POC Glucose 316 H 339 H Hemoglobin A1c Calcium 7.9 L Phosphorus Magnesium Ferritin AST ALT Alkaline Phosphatase Lactate Dehydrogenase C-Reactive Protein Total Protein Albumin Arterial Blood Glucose Arterial Blood Ionized Calcium Urine Creatinine Coronavirus (PCR) 12/26/20 12/26/20 12/26/20 07:42 11:08 11:08 WBC RBC Hct MCV MCHC Plt Count Lymph % (Auto) [place] % (Auto) Lymph # (Auto) Seg Neutrophils % Seg Neuts % (Manual) Lymphocytes % (Manual) Nucleated RBC % Seg Neutrophils # Seg Neutrophils # Man Lymphocytes # (Manual) Monocytes # (Manual) D-Dimer 4.54 H ABG pH POC ABG pCO2 POC ABG pO2 ABG Oxyhemoglobin ABG Sodium ABG Potassium ABG Chloride ABG Glucose Carboxyhemoglobin Sodium Potassium Chloride Carbon Dioxide BUN Creatinine Glucose POC Glucose 353 H Hemoglobin A1c Calcium Phosphorus Magnesium Ferritin 932.1 H AST ALT Alkaline Phosphatase Lactate Dehydrogenase C-Reactive Protein Total Protein Albumin Arterial Blood Glucose Arterial Blood Ionized Calcium Urine Creatinine Coronavirus (PCR) 12/26/20 12/26/20 12/26/20 11:08 11:57 16:40 WBC RBC Hct MCV MCHC Plt Count Lymph % (Auto) [place] % (Auto) Lymph # (Auto) Seg Neutrophils % Seg Neuts % (Manual) Lymphocytes % (Manual) Nucleated RBC % Seg Neutrophils # Seg Neutrophils # Man Lymphocytes # (Manual) Monocytes # (Manual) D-Dimer ABG pH POC ABG pCO2 POC ABG pO2 ABG Oxyhemoglobin ABG Sodium ABG Potassium ABG Chloride ABG Glucose Carboxyhemoglobin Sodium Potassium Chloride Carbon Dioxide BUN Creatinine Glucose POC Glucose 318 H 352 H Hemoglobin A1c Calcium Phosphorus Magnesium Ferritin AST ALT Alkaline Phosphatase Lactate Dehydrogenase 698 H C-Reactive Protein 3.70 H Total Protein Albumin Arterial Blood Glucose Arterial Blood Ionized Calcium Urine Creatinine Coronavirus (PCR) 12/26/20 12/27/20 12/27/20 21:29 04:25 04:25 WBC RBC Hct MCV MCHC Plt Count Lymph % (Auto) 6.4 L [place] % (Auto) 7.5 H Lymph # (Auto) 0.5 L Seg Neutrophils % 85.9 H Seg Neuts % (Manual) Lymphocytes % (Manual) Nucleated RBC % Seg Neutrophils # Seg Neutrophils # Man Lymphocytes # (Manual) Monocytes # (Manual) D-Dimer ABG pH POC ABG pCO2 POC ABG pO2 ABG Oxyhemoglobin ABG Sodium ABG Potassium ABG Chloride ABG Glucose Carboxyhemoglobin Sodium Potassium 5.4 H D Chloride Carbon Dioxide BUN 30 H Creatinine Glucose 273 H POC Glucose 376 H Hemoglobin A1c Calcium 8.1 L Phosphorus Magnesium Ferritin AST ALT Alkaline Phosphatase 242 H Lactate Dehydrogenase C-Reactive Protein Total Protein Albumin 2.7 L Arterial Blood Glucose Arterial Blood Ionized Calcium Urine Creatinine Coronavirus (PCR) 12/27/20 12/27/20 12/27/20 08:05 11:39 17:28 WBC RBC Hct MCV MCHC Plt Count Lymph % (Auto) [place] % (Auto) Lymph # (Auto) Seg Neutrophils % Seg Neuts % (Manual) Lymphocytes % (Manual) Nucleated RBC % Seg Neutrophils # Seg Neutrophils # Man Lymphocytes # (Manual) Monocytes # (Manual) D-Dimer ABG pH POC ABG pCO2 POC ABG pO2 ABG Oxyhemoglobin ABG Sodium ABG Potassium ABG Chloride ABG Glucose Carboxyhemoglobin Sodium Potassium Chloride Carbon Dioxide BUN Creatinine Glucose POC Glucose 287 H 359 H 490 H Hemoglobin A1c Calcium Phosphorus Magnesium Ferritin AST ALT Alkaline Phosphatase Lactate Dehydrogenase C-Reactive Protein Total Protein Albumin Arterial Blood Glucose Arterial Blood Ionized Calcium Urine Creatinine Coronavirus (PCR) 12/27/20 12/27/20 12/28/20 21:43 21:53 04:41 WBC RBC Hct MCV MCHC Plt Count Lymph % (Auto) [place] % (Auto) Lymph # (Auto) Seg Neutrophils % Seg Neuts % (Manual) Lymphocytes % (Manual) Nucleated RBC % Seg Neutrophils # Seg Neutrophils # Man Lymphocytes # (Manual) Monocytes # (Manual) D-Dimer ABG pH POC ABG pCO2 POC ABG pO2 ABG Oxyhemoglobin ABG Sodium ABG Potassium ABG Chloride ABG Glucose Carboxyhemoglobin Sodium Potassium Chloride Carbon Dioxide 31 H BUN 35 H Creatinine Glucose 328 H POC Glucose 503 H 438 H Hemoglobin A1c Calcium Phosphorus Magnesium Ferritin AST ALT Alkaline Phosphatase Lactate Dehydrogenase C-Reactive Protein Total Protein Albumin Arterial Blood Glucose Arterial Blood Ionized Calcium Urine Creatinine Coronavirus (PCR) 12/28/20 12/28/20 12/28/20 07:58 11:40 15:43 WBC RBC Hct MCV MCHC Plt Count Lymph % (Auto) [place] % (Auto) Lymph # (Auto) Seg Neutrophils % Seg Neuts % (Manual) Lymphocytes % (Manual) Nucleated RBC % Seg Neutrophils # Seg Neutrophils # Man Lymphocytes # (Manual) Monocytes # (Manual) D-Dimer 4626.15 H ABG pH POC ABG pCO2 POC ABG pO2 ABG Oxyhemoglobin ABG Sodium ABG Potassium ABG Chloride ABG Glucose Carboxyhemoglobin Sodium Potassium Chloride Carbon Dioxide BUN Creatinine Glucose POC Glucose 321 H 455 H Hemoglobin A1c Calcium Phosphorus Magnesium Ferritin AST ALT Alkaline Phosphatase Lactate Dehydrogenase C-Reactive Protein Total Protein Albumin Arterial Blood Glucose Arterial Blood Ionized Calcium Urine Creatinine Coronavirus (PCR) 12/28/20 12/28/20 12/28/20 15:43 15:43 17:10 WBC RBC Hct MCV MCHC Plt Count Lymph % (Auto) [place] % (Auto) Lymph # (Auto) Seg Neutrophils % Seg Neuts % (Manual) Lymphocytes % (Manual) Nucleated RBC % Seg Neutrophils # Seg Neutrophils # Man Lymphocytes # (Manual) Monocytes # (Manual) D-Dimer ABG pH POC ABG pCO2 POC ABG pO2 ABG Oxyhemoglobin ABG Sodium ABG Potassium ABG Chloride ABG Glucose Carboxyhemoglobin Sodium Potassium Chloride Carbon Dioxide BUN Creatinine Glucose POC Glucose 291 H Hemoglobin A1c Calcium Phosphorus Magnesium Ferritin 1030.0 H AST ALT Alkaline Phosphatase Lactate Dehydrogenase 838 H C-Reactive Protein Total Protein Albumin Arterial Blood Glucose Arterial Blood Ionized Calcium Urine Creatinine Coronavirus (PCR) 12/28/20 12/29/20 12/29/20 21:42 05:12 08:25 WBC RBC Hct MCV MCHC Plt Count Lymph % (Auto) [place] % (Auto) Lymph # (Auto) Seg Neutrophils % Seg Neuts % (Manual) Lymphocytes % (Manual) Nucleated RBC % Seg Neutrophils # Seg Neutrophils # Man Lymphocytes # (Manual) Monocytes # (Manual) D-Dimer ABG pH POC ABG pCO2 POC ABG pO2 ABG Oxyhemoglobin ABG Sodium ABG Potassium ABG Chloride ABG Glucose Carboxyhemoglobin Sodium 146 H Potassium Chloride Carbon Dioxide 32 H BUN 34 H Creatinine Glucose 126 H POC Glucose 240 H 176 H Hemoglobin A1c Calcium Phosphorus Magnesium Ferritin AST ALT Alkaline Phosphatase Lactate Dehydrogenase C-Reactive Protein Total Protein Albumin Arterial Blood Glucose Arterial Blood Ionized Calcium Urine Creatinine Coronavirus (PCR) 12/29/20 12/29/20 12/29/20 11:24 16:49 21:39 WBC RBC Hct MCV MCHC Plt Count Lymph % (Auto) [place] % (Auto) Lymph # (Auto) Seg Neutrophils % Seg Neuts % (Manual) Lymphocytes % (Manual) Nucleated RBC % Seg Neutrophils # Seg Neutrophils # Man Lymphocytes # (Manual) Monocytes # (Manual) D-Dimer ABG pH POC ABG pCO2 POC ABG pO2 ABG Oxyhemoglobin ABG Sodium ABG Potassium ABG Chloride ABG Glucose Carboxyhemoglobin Sodium Potassium Chloride Carbon Dioxide BUN Creatinine Glucose POC Glucose 209 H 226 H 169 H Hemoglobin A1c Calcium Phosphorus Magnesium Ferritin AST ALT Alkaline Phosphatase Lactate Dehydrogenase C-Reactive Protein Total Protein Albumin Arterial Blood Glucose Arterial Blood Ionized Calcium Urine Creatinine Coronavirus (PCR) 12/30/20 12/30/20 12/30/20 07:34 12:17 16:29 WBC RBC Hct MCV MCHC Plt Count Lymph % (Auto) [place] % (Auto) Lymph # (Auto) Seg Neutrophils % Seg Neuts % (Manual) Lymphocytes % (Manual) Nucleated RBC % Seg Neutrophils # Seg Neutrophils # Man Lymphocytes # (Manual) Monocytes # (Manual) D-Dimer ABG pH POC ABG pCO2 POC ABG pO2 ABG Oxyhemoglobin ABG Sodium ABG Potassium ABG Chloride ABG Glucose Carboxyhemoglobin Sodium Potassium Chloride Carbon Dioxide BUN Creatinine Glucose POC Glucose 206 H 261 H 229 H Hemoglobin A1c Calcium Phosphorus Magnesium Ferritin AST ALT Alkaline Phosphatase Lactate Dehydrogenase C-Reactive Protein Total Protein Albumin Arterial Blood Glucose Arterial Blood Ionized Calcium Urine Creatinine Coronavirus (PCR) 12/30/20 12/30/20 12/31/20 18:03 23:13 08:43 WBC RBC Hct MCV MCHC Plt Count Lymph % (Auto) [place] % (Auto) Lymph # (Auto) Seg Neutrophils % Seg Neuts % (Manual) Lymphocytes % (Manual) Nucleated RBC % Seg Neutrophils # Seg Neutrophils # Man Lymphocytes # (Manual) Monocytes # (Manual) D-Dimer ABG pH 7.454 H POC ABG pCO2 49.7 H POC ABG pO2 59.0 L ABG Oxyhemoglobin 88.6 L ABG Sodium 146.4 H ABG Potassium ABG Chloride ABG Glucose 252 H Carboxyhemoglobin Sodium Potassium Chloride Carbon Dioxide BUN Creatinine Glucose POC Glucose 188 H 191 H Hemoglobin A1c Calcium Phosphorus Magnesium Ferritin AST ALT Alkaline Phosphatase Lactate Dehydrogenase C-Reactive Protein Total Protein Albumin Arterial Blood Glucose 252 H Arterial Blood Ionized Calcium 4.5 L Urine Creatinine Coronavirus (PCR) 12/31/20 12/31/20 12/31/20 11:57 16:57 21:37 WBC RBC Hct MCV MCHC Plt Count Lymph % (Auto) [place] % (Auto) Lymph # (Auto) Seg Neutrophils % Seg Neuts % (Manual) Lymphocytes % (Manual) Nucleated RBC % Seg Neutrophils # Seg Neutrophils # Man Lymphocytes # (Manual) Monocytes # (Manual) D-Dimer ABG pH POC ABG pCO2 POC ABG pO2 ABG Oxyhemoglobin ABG Sodium ABG Potassium ABG Chloride ABG Glucose Carboxyhemoglobin Sodium Potassium Chloride Carbon Dioxide BUN Creatinine Glucose POC Glucose 185 H 171 H 136 H Hemoglobin A1c Calcium Phosphorus Magnesium Ferritin AST ALT Alkaline Phosphatase Lactate Dehydrogenase C-Reactive Protein Total Protein Albumin Arterial Blood Glucose Arterial Blood Ionized Calcium Urine Creatinine Coronavirus (PCR) 01/01/21 01/01/21 01/01/21 08:03 11:55 17:06 WBC RBC Hct MCV MCHC Plt Count Lymph % (Auto) [place] % (Auto) Lymph # (Auto) Seg Neutrophils % Seg Neuts % (Manual) Lymphocytes % (Manual) Nucleated RBC % Seg Neutrophils # Seg Neutrophils # Man Lymphocytes # (Manual) Monocytes # (Manual) D-Dimer ABG pH POC ABG pCO2 POC ABG pO2 ABG Oxyhemoglobin ABG Sodium ABG Potassium ABG Chloride ABG Glucose Carboxyhemoglobin Sodium Potassium Chloride Carbon Dioxide BUN Creatinine Glucose POC Glucose 160 H 155 H 193 H Hemoglobin A1c Calcium Phosphorus Magnesium Ferritin AST ALT Alkaline Phosphatase Lactate Dehydrogenase C-Reactive Protein Total Protein Albumin Arterial Blood Glucose Arterial Blood Ionized Calcium Urine Creatinine Coronavirus (PCR) 01/01/21 01/02/21 01/02/21 22:20 07:22 11:54 WBC RBC Hct MCV MCHC Plt Count Lymph % (Auto) [place] % (Auto) Lymph # (Auto) Seg Neutrophils % Seg Neuts % (Manual) Lymphocytes % (Manual) Nucleated RBC % Seg Neutrophils # Seg Neutrophils # Man Lymphocytes # (Manual) Monocytes # (Manual) D-Dimer ABG pH POC ABG pCO2 POC ABG pO2 ABG Oxyhemoglobin ABG Sodium ABG Potassium ABG Chloride ABG Glucose Carboxyhemoglobin Sodium Potassium Chloride Carbon Dioxide BUN Creatinine Glucose POC Glucose 316 H 274 H 307 H Hemoglobin A1c Calcium Phosphorus Magnesium Ferritin AST ALT Alkaline Phosphatase Lactate Dehydrogenase C-Reactive Protein Total Protein Albumin Arterial Blood Glucose Arterial Blood Ionized Calcium Urine Creatinine Coronavirus (PCR) 01/02/21 01/02/21 01/03/21 16:00 21:20 06:48 WBC RBC Hct MCV MCHC Plt Count Lymph % (Auto) [place] % (Auto) Lymph # (Auto) Seg Neutrophils % Seg Neuts % (Manual) Lymphocytes % (Manual) Nucleated RBC % Seg Neutrophils # Seg Neutrophils # Man Lymphocytes # (Manual) Monocytes # (Manual) D-Dimer ABG pH POC ABG pCO2 POC ABG pO2 ABG Oxyhemoglobin ABG Sodium ABG Potassium ABG Chloride ABG Glucose Carboxyhemoglobin Sodium 152 H Potassium Chloride 108.8 H Carbon Dioxide 32 H BUN 64 H Creatinine 1.3 H Glucose 180 H POC Glucose 303 H 263 H Hemoglobin A1c Calcium Phosphorus Magnesium Ferritin AST ALT Alkaline Phosphatase Lactate Dehydrogenase C-Reactive Protein Total Protein Albumin Arterial Blood Glucose Arterial Blood Ionized Calcium Urine Creatinine Coronavirus (PCR) 01/03/21 01/03/21 01/03/21 08:28 11:44 13:59 WBC RBC Hct MCV MCHC Plt Count Lymph % (Auto) [place] % (Auto) Lymph # (Auto) Seg Neutrophils % Seg Neuts % (Manual) Lymphocytes % (Manual) Nucleated RBC % Seg Neutrophils # Seg Neutrophils # Man Lymphocytes # (Manual) Monocytes # (Manual) D-Dimer ABG pH POC ABG pCO2 POC ABG pO2 ABG Oxyhemoglobin ABG Sodium ABG Potassium ABG Chloride ABG Glucose Carboxyhemoglobin Sodium Potassium Chloride Carbon Dioxide BUN Creatinine Glucose POC Glucose 203 H 339 H 362 H Hemoglobin A1c Calcium Phosphorus Magnesium Ferritin AST ALT Alkaline Phosphatase Lactate Dehydrogenase C-Reactive Protein Total Protein Albumin Arterial Blood Glucose Arterial Blood Ionized Calcium Urine Creatinine Coronavirus (PCR) 01/03/21 01/03/21 01/03/21 16:00 16:00 16:00 WBC RBC Hct MCV MCHC Plt Count Lymph % (Auto) [place] % (Auto) Lymph # (Auto) Seg Neutrophils % Seg Neuts % (Manual) Lymphocytes % (Manual) Nucleated RBC % Seg Neutrophils # Seg Neutrophils # Man Lymphocytes # (Manual) Monocytes # (Manual) D-Dimer 1259.33 H ABG pH POC ABG pCO2 POC ABG pO2 ABG Oxyhemoglobin ABG Sodium ABG Potassium ABG Chloride ABG Glucose Carboxyhemoglobin Sodium Potassium Chloride Carbon Dioxide BUN Creatinine Glucose POC Glucose Hemoglobin A1c Calcium Phosphorus Magnesium Ferritin 1526.0 H AST ALT Alkaline Phosphatase Lactate Dehydrogenase 815 H C-Reactive Protein Total Protein Albumin Arterial Blood Glucose Arterial Blood Ionized Calcium Urine Creatinine Coronavirus (PCR) 01/03/21 01/03/21 01/04/21 18:13 21:23 01:46 WBC RBC Hct MCV MCHC Plt Count Lymph % (Auto) [place] % (Auto) Lymph # (Auto) Seg Neutrophils % Seg Neuts % (Manual) Lymphocytes % (Manual) Nucleated RBC % Seg Neutrophils # Seg Neutrophils # Man Lymphocytes # (Manual) Monocytes # (Manual) D-Dimer ABG pH POC ABG pCO2 POC ABG pO2 ABG Oxyhemoglobin ABG Sodium ABG Potassium ABG Chloride ABG Glucose Carboxyhemoglobin Sodium Potassium Chloride Carbon Dioxide BUN Creatinine Glucose POC Glucose 349 H 312 H 264 H Hemoglobin A1c Calcium Phosphorus Magnesium Ferritin AST ALT Alkaline Phosphatase Lactate Dehydrogenase C-Reactive Protein Total Protein Albumin Arterial Blood Glucose Arterial Blood Ionized Calcium Urine Creatinine Coronavirus (PCR) 01/04/21 01/04/21 01/04/21 05:12 05:35 07:36 WBC RBC Hct MCV MCHC Plt Count Lymph % (Auto) [place] % (Auto) Lymph # (Auto) Seg Neutrophils % Seg Neuts % (Manual) Lymphocytes % (Manual) Nucleated RBC % Seg Neutrophils # Seg Neutrophils # Man Lymphocytes # (Manual) Monocytes # (Manual) D-Dimer ABG pH POC ABG pCO2 POC ABG pO2 ABG Oxyhemoglobin ABG Sodium ABG Potassium ABG Chloride ABG Glucose Carboxyhemoglobin Sodium 147 H Potassium Chloride Carbon Dioxide 34 H BUN 59 H Creatinine Glucose 208 H POC Glucose 193 H 197 H Hemoglobin A1c Calcium Phosphorus Magnesium 2.60 H Ferritin AST ALT Alkaline Phosphatase Lactate Dehydrogenase C-Reactive Protein Total Protein Albumin Arterial Blood Glucose Arterial Blood Ionized Calcium Urine Creatinine Coronavirus (PCR) 01/04/21 01/04/21 01/04/21 11:00 14:10 18:06 WBC RBC Hct MCV MCHC Plt Count Lymph % (Auto) [place] % (Auto) Lymph # (Auto) Seg Neutrophils % Seg Neuts % (Manual) Lymphocytes % (Manual) Nucleated RBC % Seg Neutrophils # Seg Neutrophils # Man Lymphocytes # (Manual) Monocytes # (Manual) D-Dimer ABG pH POC ABG pCO2 POC ABG pO2 ABG Oxyhemoglobin ABG Sodium ABG Potassium ABG Chloride ABG Glucose Carboxyhemoglobin Sodium Potassium Chloride Carbon Dioxide BUN Creatinine Glucose POC Glucose 153 H 173 H 194 H Hemoglobin A1c Calcium Phosphorus Magnesium Ferritin AST ALT Alkaline Phosphatase Lactate Dehydrogenase C-Reactive Protein Total Protein Albumin Arterial Blood Glucose Arterial Blood Ionized Calcium Urine Creatinine Coronavirus (PCR) 01/04/21 01/05/21 01/05/21 21:36 01:38 04:09 WBC RBC Hct MCV MCHC Plt Count Lymph % (Auto) [place] % (Auto) Lymph # (Auto) Seg Neutrophils % Seg Neuts % (Manual) Lymphocytes % (Manual) Nucleated RBC % Seg Neutrophils # Seg Neutrophils # Man Lymphocytes # (Manual) Monocytes # (Manual) D-Dimer ABG pH POC ABG pCO2 POC ABG pO2 ABG Oxyhemoglobin ABG Sodium ABG Potassium ABG Chloride ABG Glucose Carboxyhemoglobin Sodium 146 H Potassium Chloride Carbon Dioxide BUN 55 H Creatinine Glucose 241 H POC Glucose 232 H 232 H Hemoglobin A1c Calcium 8.3 L Phosphorus Magnesium 2.70 H Ferritin AST ALT 58 H Alkaline Phosphatase 177 H Lactate Dehydrogenase C-Reactive Protein Total Protein Albumin 2.9 L Arterial Blood Glucose Arterial Blood Ionized Calcium Urine Creatinine Coronavirus (PCR) 01/05/21 01/05/2121 05:56 08:22 11:46 WBC RBC Hct MCV MCHC Plt Count Lymph % (Auto) [place] % (Auto) Lymph # (Auto) Seg Neutrophils % Seg Neuts % (Manual) Lymphocytes % (Manual) Nucleated RBC % Seg Neutrophils # Seg Neutrophils # Man Lymphocytes # (Manual) Monocytes # (Manual) D-Dimer ABG pH POC ABG pCO2 POC ABG pO2 ABG Oxyhemoglobin ABG Sodium ABG Potassium ABG Chloride ABG Glucose Carboxyhemoglobin Sodium Potassium Chloride Carbon Dioxide BUN Creatinine Glucose POC Glucose 264 H 213 H 144 H Hemoglobin A1c Calcium Phosphorus Magnesium Ferritin AST ALT Alkaline Phosphatase Lactate Dehydrogenase C-Reactive Protein Total Protein Albumin Arterial Blood Glucose Arterial Blood Ionized Calcium Urine Creatinine Coronavirus (PCR) 01/05/21 01/05/21 01/05/21 14:41 15:38 18:41 WBC RBC Hct MCV MCHC Plt Count Lymph % (Auto) [place] % (Auto) Lymph # (Auto) Seg Neutrophils % Seg Neuts % (Manual) Lymphocytes % (Manual) Nucleated RBC % Seg Neutrophils # Seg Neutrophils # Man Lymphocytes # (Manual) Monocytes # (Manual) D-Dimer ABG pH 7.263 L 7.3 L POC ABG pCO2 50.3 H 60.0 H POC ABG pO2 66.6 L 79.6 L ABG Oxyhemoglobin 87.9 L 92.2 L ABG Sodium 145.8 H ABG Potassium ABG Chloride ABG Glucose 306 H 353 H Carboxyhemoglobin Sodium Potassium Chloride Carbon Dioxide BUN Creatinine Glucose POC Glucose 307 H Hemoglobin A1c Calcium Phosphorus Magnesium Ferritin AST ALT Alkaline Phosphatase Lactate Dehydrogenase C-Reactive Protein Total Protein Albumin Arterial Blood Glucose 306 H 353 H Arterial Blood Ionized Calcium 4.4 L Urine Creatinine Coronavirus (PCR) 01/05/21 01/06/21 01/06/21 21:16 01:31 04:45 WBC RBC Hct MCV MCHC Plt Count Lymph % (Auto) [place] % (Auto) Lymph # (Auto) Seg Neutrophils % Seg Neuts % (Manual) Lymphocytes % (Manual) Nucleated RBC % Seg Neutrophils # Seg Neutrophils # Man Lymphocytes # (Manual) Monocytes # (Manual) D-Dimer ABG pH 7.237 L POC ABG pCO2 68.9 H POC ABG pO2 ABG Oxyhemoglobin 93.2 L ABG Sodium 145.4 H ABG Potassium ABG Chloride ABG Glucose 152 H Carboxyhemoglobin 1.6 H Sodium Potassium Chloride Carbon Dioxide BUN Creatinine Glucose POC Glucose 256 H 195 H Hemoglobin A1c Calcium Phosphorus Magnesium Ferritin AST ALT Alkaline Phosphatase Lactate Dehydrogenase C-Reactive Protein Total Protein Albumin Arterial Blood Glucose 152 H Arterial Blood Ionized Calcium Urine Creatinine Coronavirus (PCR) 01/06/21 01/06/21 01/06/21 05:26 14:49 14:49 WBC 34.5 H RBC Hct 43.8 H MCV 99 H MCHC Plt Count Lymph % (Auto) [place] % (Auto) Lymph # (Auto) Seg Neutrophils % Seg Neuts % (Manual) 93.0 H Lymphocytes % (Manual) 4.0 L Nucleated RBC % Seg Neutrophils # Seg Neutrophils # Man 32.1 H Lymphocytes # (Manual) Monocytes # (Manual) 1.0 H D-Dimer ABG pH POC ABG pCO2 POC ABG pO2 ABG Oxyhemoglobin ABG Sodium ABG Potassium ABG Chloride ABG Glucose Carboxyhemoglobin Sodium Potassium Chloride Carbon Dioxide 20 L D BUN 70 H Creatinine 3.2 H D Glucose 108 H POC Glucose 138 H Hemoglobin A1c Calcium Phosphorus 7.70 H D Magnesium 2.60 H Ferritin AST 94 H ALT 103 H Alkaline Phosphatase 220 H Lactate Dehydrogenase C-Reactive Protein Total Protein Albumin 2.9 L Arterial Blood Glucose Arterial Blood Ionized Calcium Urine Creatinine Coronavirus (PCR) 01/06/21 01/06/21 01/06/21 17:25 17:41 19:50 WBC RBC Hct MCV MCHC Plt Count Lymph % (Auto) [place] % (Auto) Lymph # (Auto) Seg Neutrophils % Seg Neuts % (Manual) Lymphocytes % (Manual) Nucleated RBC % Seg Neutrophils # Seg Neutrophils # Man Lymphocytes # (Manual) Monocytes # (Manual) D-Dimer ABG pH 7.079 L POC ABG pCO2 93.7 H POC ABG pO2 79.3 L ABG Oxyhemoglobin 92.1 L ABG Sodium ABG Potassium 4.8 H ABG Chloride ABG Glucose 196 H Carboxyhemoglobin Sodium Potassium Chloride Carbon Dioxide BUN Creatinine Glucose POC Glucose 165 H 216 H Hemoglobin A1c Calcium Phosphorus Magnesium Ferritin AST ALT Alkaline Phosphatase Lactate Dehydrogenase C-Reactive Protein Total Protein Albumin Arterial Blood Glucose 196 H Arterial Blood Ionized Calcium 4.4 L Urine Creatinine Coronavirus (PCR) 01/06/21 01/07/21 01/07/21 23:17 03:32 04:23 WBC RBC Hct MCV MCHC Plt Count Lymph % (Auto) [place] % (Auto) Lymph # (Auto) Seg Neutrophils % Seg Neuts % (Manual) Lymphocytes % (Manual) Nucleated RBC % Seg Neutrophils # Seg Neutrophils # Man Lymphocytes # (Manual) Monocytes # (Manual) D-Dimer ABG pH 7.298 L POC ABG pCO2 73.2 H POC ABG pO2 75.7 L ABG Oxyhemoglobin 93.5 L ABG Sodium ABG Potassium ABG Chloride 94.0 L ABG Glucose 404 H Carboxyhemoglobin Sodium Potassium Chloride Carbon Dioxide BUN Creatinine Glucose POC Glucose 326 H 359 H Hemoglobin A1c Calcium Phosphorus Magnesium Ferritin AST ALT Alkaline Phosphatase Lactate Dehydrogenase C-Reactive Protein Total Protein Albumin Arterial Blood Glucose 404 H Arterial Blood Ionized Calcium 3.9 L Urine Creatinine Coronavirus (PCR) 01/07/21 01/07/21 01/07/21 07:26 11:10 16:29 WBC RBC Hct MCV MCHC Plt Count Lymph % (Auto) [place] % (Auto) Lymph # (Auto) Seg Neutrophils % Seg Neuts % (Manual) Lymphocytes % (Manual) Nucleated RBC % Seg Neutrophils # Seg Neutrophils # Man Lymphocytes # (Manual) Monocytes # (Manual) D-Dimer ABG pH POC ABG pCO2 POC ABG pO2 ABG Oxyhemoglobin ABG Sodium ABG Potassium ABG Chloride ABG Glucose Carboxyhemoglobin Sodium Potassium Chloride Carbon Dioxide BUN Creatinine Glucose POC Glucose 385 H 384 H 250 H Hemoglobin A1c Calcium Phosphorus Magnesium Ferritin AST ALT Alkaline Phosphatase Lactate Dehydrogenase C-Reactive Protein Total Protein Albumin Arterial Blood Glucose Arterial Blood Ionized Calcium Urine Creatinine Coronavirus (PCR) 01/07/21 01/07/21 01/07/21 19:45 22:01 22:01 WBC 28.2 H RBC Hct MCV MCHC Plt Count Lymph % (Auto) [place] % (Auto) Lymph # (Auto) Seg Neutrophils % Seg Neuts % (Manual) Lymphocytes % (Manual) Nucleated RBC % Seg Neutrophils # Seg Neutrophils # Man Lymphocytes # (Manual) Monocytes # (Manual) D-Dimer ABG pH POC ABG pCO2 POC ABG pO2 ABG Oxyhemoglobin ABG Sodium ABG Potassium ABG Chloride ABG Glucose Carboxyhemoglobin Sodium Potassium Chloride 90.4 L Carbon Dioxide 40 H D BUN 98 H Creatinine 6.2 H D Glucose 187 H POC Glucose 202 H Hemoglobin A1c Calcium 7.3 L Phosphorus Magnesium Ferritin AST ALT Alkaline Phosphatase Lactate Dehydrogenase C-Reactive Protein Total Protein Albumin Arterial Blood Glucose Arterial Blood Ionized Calcium Urine Creatinine Coronavirus (PCR) 01/07/21 01/08/21 01/08/21 23:12 03:30 03:31 WBC RBC Hct MCV MCHC Plt Count Lymph % (Auto) [place] % (Auto) Lymph # (Auto) Seg Neutrophils % Seg Neuts % (Manual) Lymphocytes % (Manual) Nucleated RBC % Seg Neutrophils # Seg Neutrophils # Man Lymphocytes # (Manual) Monocytes # (Manual) D-Dimer ABG pH POC ABG pCO2 63.2 H POC ABG pO2 65.3 L ABG Oxyhemoglobin 91.8 L ABG Sodium 135.8 L ABG Potassium ABG Chloride 89.0 L ABG Glucose 210 H Carboxyhemoglobin Sodium Potassium Chloride Carbon Dioxide BUN Creatinine Glucose POC Glucose 185 H 195 H Hemoglobin A1c Calcium Phosphorus Magnesium Ferritin AST ALT Alkaline Phosphatase Lactate Dehydrogenase C-Reactive Protein Total Protein Albumin Arterial Blood Glucose 210 H Arterial Blood Ionized Calcium Urine Creatinine Coronavirus (PCR) 01/08/21 01/08/21 01/08/21 04:29 04:29 08:07 WBC 34.5 H RBC Hct MCV MCHC Plt Count Lymph % (Auto) [place] % (Auto) Lymph # (Auto) Seg Neutrophils % Seg Neuts % (Manual) 94.0 H Lymphocytes % (Manual) 2.0 L Nucleated RBC % 1.0 H Seg Neutrophils # Seg Neutrophils # Man 32.4 H Lymphocytes # (Manual) 0.7 L Monocytes # (Manual) 1.0 H D-Dimer ABG pH POC ABG pCO2 POC ABG pO2 ABG Oxyhemoglobin ABG Sodium ABG Potassium ABG Chloride ABG Glucose Carboxyhemoglobin Sodium Potassium Chloride 89.3 L Carbon Dioxide 39 H BUN 106 H Creatinine 7.0 H Glucose 196 H POC Glucose 171 H Hemoglobin A1c Calcium 7.7 L Phosphorus 6.70 H Magnesium 2.50 H Ferritin AST 65 H ALT 88 H Alkaline Phosphatase 188 H Lactate Dehydrogenase C-Reactive Protein Total Protein Albumin 2.9 L Arterial Blood Glucose Arterial Blood Ionized Calcium Urine Creatinine Coronavirus (PCR) 01/08/21 11:38 WBC RBC Hct MCV MCHC Plt Count Lymph % (Auto) [place] % (Auto) Lymph # (Auto) Seg Neutrophils % Seg Neuts % (Manual) Lymphocytes % (Manual) Nucleated RBC % Seg Neutrophils # Seg Neutrophils # Man Lymphocytes # (Manual) Monocytes # (Manual) D-Dimer ABG pH POC ABG pCO2 POC ABG pO2 ABG Oxyhemoglobin ABG Sodium ABG Potassium ABG Chloride ABG Glucose Carboxyhemoglobin Sodium Potassium Chloride Carbon Dioxide BUN Creatinine Glucose POC Glucose 177 H Hemoglobin A1c Calcium Phosphorus Magnesium Ferritin AST ALT Alkaline Phosphatase Lactate Dehydrogenase C-Reactive Protein Total Protein Albumin Arterial Blood Glucose Arterial Blood Ionized Calcium Urine Creatinine Coronavirus (PCR) Chest x-ray: image reviewed (Severe subcutaneous emphysema. Bilateral chest tubes with no clear evidence of pneumothorax. Extensive bilateral pulmonary infiltrates noted.)
[2021-01-08] MEDS ORDERED: SODIUM CHLORIDE 0.9% 100 ML IV PRN (14:12)
--- NOTE | 2021-01-08 14:29 | Event Note ---
Date: 01/08/21 No acute events overnight. CXR this morning shows chest tubes in place, with no pneumothorax. Continues with massive subcutaneous emphysema. Vent continues at 100% FiO2 on PEEP 20. SPo2 97. Continues small air leak. continue chest tubes on continuous suction and supportive care. No further surgical intervention planned at this time.
[2021-01-08] MEDS: PANTOPRAZOLE 40 MG INJ IV SCH ×2 (14:48→21:01)
--- NOTE | 2021-01-08 15:58 | Event Note ---
Date: 01/08/21 I called and spoke with the patient's son Mr. Sunny Mendoza at [phone] and updated him of the patient's present condition That the patient remains intubated on ventilatory support, that she has bilateral chest tubes for bilateral pneumothoraces She is hypotensive requiring 2 pressors, with improvement of blood pressure ranging 110-120 systolic, that the patient has acute renal failure With creatinine of 7, nephrology recommended stat dialysis, HD catheter placed by vascular, and that waiting for blood pressure to improve So the patient can safely have dialysis. They had numerous questions, I answered all of them And encouraged them to call back if they have any more questions or concerns I informed him very clearly that the patient is critically ill, with very poor prognosis The son verbalized understanding. I also discussed with him CODE STATUS, continue full CODE STATUS . I informed patient's nurse Ms. Joyner about the details of my conversation with family
[2021-01-08] MEDS: PHENYLEPHRINE 100 MG in SODIUM CHLORIDE 0.9% 90 ML IV SCH ×2 (19:02→21:43)
[2021-01-08] MEDS ORDERED: SODIUM CHLORIDE 0.9% 1000 ML 1,000 ML IV ONE ×2 (19:25→20:16)
--- NOTE | 2021-01-08 22:14 | Consultation ---
DATE OF CONSULTATION: 01/08/2021 CARDIOLOGY CONSULTATION REFERRING PHYSICIAN: Dr. Emerson. REASON FOR CONSULTATION: Advice and opinion regarding atrial fibrillation. HISTORY OF PRESENT ILLNESS: The patient is a 55-year-old female who was admitted on 12/20/2020 with shortness of breath, cough, fever, chills, found to have COVID pneumonia. She is seen today in room 266 in the ICU. History is as per chart as the patient is intubated and sedated. Nurse at bedside. Events of last several weeks, I reviewed at length. PHYSICAL EXAMINATION: VITAL SIGNS: Blood pressure is 110/70. The patient is on Levophed infusion. Heart rate now is in the one-teens, sinus tachycardia, respirations 18, O2 saturation is 97% on ventilator. GENERAL: This is a middle-aged female intubated and sedated. HEENT: Sclerae are anicteric. PERRLA. NECK: Supple, no masses. CHEST: Decreased breath sounds in bilateral bases. Overall, moderate air movement. CARDIOVASCULAR: Tachycardic, S1, S2. ABDOMEN: Soft, nontender. EXTREMITIES: 1+ edema bilaterally. Good DP and PT pulses. SKIN: Dry and intact. No rashes. LABORATORY DATA: EKG from yesterday reveals sinus tachycardia, no acute ST segment shift. This morning, the patient developed AFib with RVR. Currently, the patient is in sinus tachycardia. Labs and radiology reviewed. WBC is 34.5, hemoglobin 12.8, hematocrit 38.2, platelets 186. A pH this morning 7.4, pH 2 days ago 7.08. Today, sodium 142, creatinine is 7. Initial creatinine was 1.0, magnesium 2.5, AST is 65, ALT is 88. Chest x-ray reveals bilateral chest tube placement without evidence of pneumothorax, bilateral diffuse lung opacities. ASSESSMENT: The patient is a pleasant 55-year-old female. 1. Severe COVID pneumonia with multisystem organ failure. 2. Acute kidney injury. 3. Atrial fibrillation with rapid ventricular response, it is now sinus rhythm. 4. Bilateral pneumothorax, status post chest tubes. 5. Shock, likely due to COVID infection. 6. Diabetes type 2. PLAN: She just had a Vascath placed for possible dialysis. Optimize electrolytes. Continue IV amiodarone for now. Echocardiogram is pending. Continue IV heparin. The patient is critically ill with poor prognosis. We will follow along. Wean pressors per protocol. Being followed by photoengraving printer, vascular surgery and hospitalist. We will follow along. Thank you for this consultation. TID: [id number] RECEIPT: [id number] KENDRICK/JIMENA
[2021-01-09] MEDS: INSULIN LISPRO 100 UNIT/ML SUB-Q SCH ×6 (00:08→19:55)
[2021-01-09] MEDS: methylPREDNISolone Sod Succinate 40 MG/1 ML INJ IV SCH ×5 (00:09→23:07)
[2021-01-09] MEDS: fentaNYL DRIP Premix 2,000 MCG/100 ML BAG IV SCH ×4 (00:09→23:09)
[2021-01-09] MEDS: NORepinephrine/NS 8 MG-250 ML 8 MG/250 ML INFUS..BTL IV SCH ×4 (00:56→19:17)
--- NOTE | 2021-01-09 04:59 | XRay Report ---
CHEST 1 VIEW INDICATION: chest tubes, vent COMPARISON: 01/08/2021 FINDINGS: SUPPORT DEVICES: Endotracheal tubes in good position. Right chest tubes in place HEART / MEDIASTINUM: No significant abnormality. LUNGS / PLEURA: Extensive subcutaneous emphysema decreased as compared to previous exam. Persistent b ilateral airspace pulmonary process . No pleural abnormality. No pneumothorax. ADDITIONAL FINDINGS: IMPRESSION: 1. Improved subcutaneous emphysema as compared to previous exam Signer Name: Beltran Reis MD Signed: 01/09/2021 4:55 AM Workstation Name: [id number]
[2021-01-09 05:13] LABS: Albumin 2.5 g/dL (3.9-5); Calcium 7.9 mg/dL (8.4-10.2)
[2021-01-09] MEDS: VASOPRESSIN 20 UNIT in SODIUM CHLORIDE 0.9% 100 ML IV SCH (06:56)
[2021-01-09] MEDS: PANTOPRAZOLE 40 MG INJ IV SCH ×2 (09:11→21:01)
[2021-01-09] MEDS: INSULIN NPH/REGULAR 70/30 INJ SUB-Q SCH ×2 (09:11→17:26)
[2021-01-09] MEDS: AMIODARONE 900 MG in DEXTROSE 5% IN WATER 482 ML IV SCH (09:12)
[2021-01-09] MEDS: AYR SALINE NASAL GEL 14.1 GM NS SCH ×2 (09:13→21:02)
--- NOTE | 2021-01-09 09:16 | Progress Note ---
Assessment and Plan Assessment and plan: 55-year-old female patient with severe Covid 19 infection, respiratory failure intubated on vent, history of interstitial lung disease, septic shock on multiple pressors, bilateral pneumothorax status post chest tube placement, massive subcutaneous emphysema, acute kidney injury requiring hemodialysis, new onset atrial fibrillation with rapid ventricular rate, multiple electrolyte imbalance and morbid obesity BMI 47.6, critically ill with very poor prognosis. Remains intubated on ventilatory support. Assessment and plan; --Acute hypoxic respiratory failure; intubated continue ventilatory support, Pulmonary critical following Due to severe COVID-19 infection,h/o ILD Obesity hypoventilation syndrome . --Hypotension/septic shock; On multiple pressors, titrate and wean as tolerated Poor prognosis --History of interstitial lung disease[ILD]; on CT scan at [facility] Received pulse steroids total 3 dose ,Follow blood sugars --Bilateral pneumothorax; s/p bilateral chest tube placements today per surgery Continue supportive care, surgery and pulmonary following --Subcutaneous emphysema/small pneumoperitoneum,Supportive care --A. fib with rapid ventricular rate; new onset Patient is on amiodarone drip, unable to give beta-blockers due to hypotension On heparin drip, Cardiology following, echocardiogram for LV function and ejection fraction --Acute kidney injury;Rapid worsening renal function Nephrology initiated hemodialysis, HD per schedule --Sepsis due to COVID-19 pneumonia Procalcitonin low, no need for antibiotics --Severe, COVID-19 infection;Guarded prognosis Completed remdesivir, Received Tocilizumab Continue IV steroids per pulmonary Monitor inflammatory markers Prone positioning as tolerated Home oxygen evaluation prior to discharge --Diabetes mellitus type 2; uncontrolled,A1c 10.3 Accu-Chek sliding scale coverage ADA diet Patient has pneumoperitoneum, tube feeding stopped We will decrease 70/30 insulin dose to 20 mg subcu twice daily Closely monitor blood sugars --Elevated D-dimers; due to COVID-19 Negative PE, negative DVT --Hyponatremia; dehydration, poor oral intake Advised plenty free water as tolerated --Morbid obesity; BMI 46.2 Patient needs weight reduction when medically stable --OHS/JERMAINE; due to morbid obesity Patient needs outpatient sleep study to rule out JERMAINE CPAP/BiPAP at night and as needed --Elevated LFTs probably Covid related; resolved . --DVT prophylaxis; Lovenox Closely monitor the patient and adjust the management as needed C Python Developer recommendations noted and appreciated Plan of care reviewed with the patient and her nurse Patient is critically ill with guarded prognosis Patient and family aware The high probability of a clinically significant, sudden or life threatening deterioration of the [multi] system(s) required my full and direct attention, intervention and personal management. The aggregate critical care time was [45] minutes. This time is in addition to time spent performing reported procedures but includes the following: [x] Data Review and interpretation [x] Patient assessment and monitoring of vital signs [x] Documentation [x] Medication orders and management Brief history and daily patient care; Morbidly obese 55 y/o -Wallisian female patient past medical history of ILD on CT scan[per [facility] records] was admitted with worsening shortness of breath noted to have severe COVID-19 pneumonia. Patient was in acute hypoxic respiratory failure, high flow nasal oxygen and BiPAP dependent. Patient went into sudden respiratory failure requiring intubation and went, complicated by bilateral pneumothorax and massive subcutaneous emphysema, surgery evaluated s/p bilateral chest tube placement . Patient went into acute kidney injury, with rapid worsening of renal function with creatinine of 7.0[01/07/2021] reconsulted nephrology, hemodialysis initiated Patient also had acute atrial fibrillation with rapid ventricular rate, cardiology evaluated and placed on amiodarone, beta-blockers. Heparin drip Patient has very poor prognosis with multiple medical problems, family son Mr. Sunny Scott is aware. Daily updates with patient's son. Patient is in septic shock requiring 3 pressors, very poor prognosis. 01/04/2021; blood sugars moderate control, increase 70/30 insulin to 34 units twice a day on continuous BiPAP, TPN started per rail grinder Mild hypotension, fluid boluses, consider 01/05/2021; patient is on continuous BiPAP In severe respiratory distress Started on pulse dose steroids second dose today 01/06/2021; Patient was in severe respiratory failure requiring intubation ventilatory support yesterday Blood sugar slightly high, insulin dose increased to 40 units Novolin 70/30 twice a day Restraints in place, closely monitor 01/07/2021; patient is critically ill with very poor prognosis, family aware Continue current management, regulatory consultant recommendations noted and appreciated Very poor prognosis, family aware 01/08/2021; new onset A. fib rapid ventricular rate, amiodarone, heparin drip cardiology following Rapid acute worsening renal function, creatinine 7.0, nephrology consulted Patient is critically ill with very poor prognosis History Interval history: I have seen and examined the patient at the bedside in ICU this morning Isolation precautions, PPE protocols followed per COVID-19 guidelines Patient remains intubated on ventilatory support Mild improvement of massive subcutaneous emphysema Patient has bilateral chest tubes in place Patient is hypotensive/septic shock on 3 pressors Vital signs reviewed Hospitalist Physical - Constitutional Vitals: Temp Pulse Resp BP Pulse Ox 99.3 F 84 28 H 130/75 99 01/09/21 07:00 01/09/21 08:18 01/09/21 08:15 01/09/21 08:18 01/09/21 08:18 General appearance: Present: severe distress, well-nourished, obese (Morbidly o bese), other (Intubated on ventilatory support, subcutaneous emphysema,) - EENT Eyes: Present: PERRL, EOM intact ENT: other (ET tube and Dobbhoff in place) - Neck Neck: Present: supple. Absent: enlarged thyroid - Respiratory Respiratory effort: normal Respiratory: bilateral: diminished, rhonchi, negative: rales, wheezing - Cardiovascular Rhythm: regular Heart Sounds: Present: S1 & S2 - Extremities Extremities: no ischemia, abnormal (Obese) Extremity abnormal: edema - Abdominal General gastrointestinal: soft, non-tender, non-distended, normal bowel sounds - Integumentary Integumentary: Present: clear, warm - Psychiatric Psychiatric: other (Intubated on ventilatory support, noncommunicative) - Neurologic Neurologic: other (Intubated on ventilatory support) HEART Score - HEART Score Troponin: Troponin T < 0.010 ng/mL (0.00-0.029) 12/20/20 19:27 Results - Labs CBC & Chem 7: 01/08/21 08:26 01/09/21 04:20 Labs: Laboratory Last Values WBC 34.5 K/mm3 (4.5-11.0) H 01/08/21 04:29 RBC 4.13 M/mm3 (3.65-5.03) 01/08/21 04:29 Hgb 12.8 gm/dl (10.1-14.3) 01/08/21 08:26 Hct 38.2 % (30.3-42.9) 01/08/21 08:26 MCV 95 fl (79-97) 01/08/21 04:29 MCH 32 pg (28-32) 01/08/21 04:29 MCHC 33 % (30-34) 01/08/21 04:29 RDW 13.4 % (13.2-15.2) 01/08/21 04:29 Plt Count 186 K/mm3 (140-440) 01/08/21 08:26 Lymph % (Auto) [employer] Certified Network Professional 01/06/21 14:49 [place] % (Auto) [employer] Professional 01/06/21 14:49 Eos % (Auto) [employer] Professional 01/06/21 14:49 Baso % (Auto) [employer] Professional 01/06/21 14:49 Lymph # (Auto) [employer] Professional 01/06/21 14:49 [place] # (Auto) [employer] Cert[employer] Network Professional 01/06/21 14:49 Eos # (Auto) [employer] Network Professional 01/06/21 14:49 Baso # (Auto) [employer] Network Professional 01/06/21 14:49 Add Manual Diff Complete 01/08/21 04:29 Total Counted 100 01/08/21 04:29 Seg Neutrophils % [employer] Professional 01/08/21 04:29 Seg Neuts % (Manual) 94.0 % (40.0-70.0) H 01/08/21 04:29 Band Neutrophils % 4.0 % 12/23/20 14:09 Lymphocytes % (Manual) 2.0 % (13.4-35.0) L 01/08/21 04:29 Reactive Lymphs % (Man) 1.0 % 12/23/20 14:09 Monocytes % (Manual) 3.0 % (0.0-7.3) 01/08/21 04:29 Eosinophils % (Manual) 1.0 % (0.0-4.3) 01/08/21 04:29 Nucleated RBC % 1.0 % (0.0-0.9) H 01/08/21 04:29 Seg Neutrophils # [employer] Professional 01/06/21 14:49 Seg Neutrophils # Man 32.4 K/mm3 (1.8-7.7) H 01/08/21 04:29 Band Neutrophils # 0.0 K/mm3 01/08/21 04:29 Lymphocytes # (Manual) 0.7 K/mm3 (1.2-5.4) L 01/08/21 04:29 Abs React Lymphs (Man) 0.0 K/mm3 01/08/21 04:29 Monocytes # (Manual) 1.0 K/mm3 (0.0-0.8) H 01/08/21 04:29 Eosinophils # (Manual) 0.3 K/mm3 (0.0-0.4) 01/08/21 04: Basophils # (Manual) 0.0 K/mm3 (0.0-0.1) 01/08/21 04:29 Metamyelocytes # 0.0 K/mm3 01/08/21 04:29 Myelocytes # 0.0 K/mm3 01/08/21 04: Promyelocytes # 0.0 K/mm3 01/08/21 04:29 Blast Cells # 0.0 K/mm3 01/08/21 04:29 Pathologist Review 01/06/21 14:49 WBC Morphology Not Reportable 01/08/21 04:29 Hypersegmented Neuts Not Reportable 01/08/21 04:29 Hyposegmented Neuts Not Reportable 01/08/21 04:29 Hypogranular Neuts Not Reportable 01/08/21 04:29 Smudge Cells Not Reportable 01/08/21 04:29 Toxic Granulation Not Reportable 01/08/21 04:29 Toxic Vacuolation Not Reportable 01/08/21 04:29 Dohle Bodies Not Reportable 01/08/21 04:29 Pelger-Huet Anomaly Not Reportable 01/08/21 04:29 Jair Rods Not Reportable 01/08/21 04:29 Platelet Estimate Consistent w auto 01/08/21 04:29 Clumped Platelets Not Reportable 01/08/21 04:29 Plt Clumps, EDTA Not Reportable 01/08/21 04:29 Large Platelets Not Reportable 01/08/21 04:29 Giant Platelets Not Reportable 01/08/21 04:29 Platelet Satelliting Not Reportable 01/08/21 04:29 Plt Morphology Comment Not Reportable 01/08/21 04:29 RBC Morphology Normal 01/08/21 04:29 Dimorphic RBCs Not Reportable 01/08/21 04:29 Polychromasia Not Reportable 01/08/21 04:29 Hypochromasia Not Reportable 01/08/21 04:29 Poikilocytosis Not Reportable 01/08/21 04:29 Anisocytosis Not Reportable 01/08/21 04:29 Microcytosis Not Reportable 01/08/21 04:29 Macrocytosis Not Reportable 01/08/21 04:29 Spherocytes Not Reportable 01/08/21 04:29 Pappenheimer Bodies Not Reportable 01/08/21 04:29 Sickle Cells Not Reportable 01/08/21 04:29 Target Cells Not Reportable 01/08/21 04:29 Tear Drop Cells Not Reportable 01/08/21 04:29 Ovalocytes Not Reportable 01/08/21 04:29 Stomatocytes Rare 01/06/21 14:49 Helmet Cells Not Reportable 01/08/21 04:29 [place] Bodies Not Reportable 01/08/21 04:29 [place] Rings Not Reportable 01/08/21 04:29 Ale Cells Not Reportable 01/08/21 04:29 Bite Cells Not Reportable 01/08/21 04:29 Crenated Cell Not Reportable 01/08/21 04:29 Elliptocytes Not Reportable 01/08/21 04:29 Acanthocytes (Spur) Not Reportable 01/08/21 04:29 Rouleaux Not Reportable 01/08/21 04:29 Hemoglobin C Crystals Not Reportable 01/08/21 04:29 Schistocytes Not Reportable 01/08/21 04:29 Malaria parasites Not Reportable 01/08/21 04:29 Giorgi Bodies Not Reportable 01/08/21 04:29 Hem Pathologist Commnt No 01/08/21 04:29 PT 14.0 Sec. (12.2-14.9) 01/08/21 11:50 INR 1.09 (0.87-1.13) 01/08/21 11:50 APTT 26.5 Sec. (24.2-36.6) 01/08/21 11:50 D-Dimer 1259.33 ng/mlDDU (0-234) H 01/03/21 16:00 Heparin Anti-Xa Level 2.00 U.I./ml (0.3-0.7) H 01/09/21 02:54 ABG pH 7.403 (7.320-7.450) 01/08/21 03:30 POC ABG pCO2 63.2 mmHg (32.0-48.0) H 01/08/21 03:30 POC ABG pO2 65.3 mmHg (83-108) L 01/08/21 03:30 POC ABG HCO3 38.5 01/08/21 03:30 ABG O2 Saturation 92.8 (0-100) 01/08/21 03:30 POC ABG Base Excess 11.1 01/08/21 03:30 ABG Hemoglobin 14.0 (12.0-17.5) 01/08/21 03:30 ABG Oxyhemoglobin 91.8 (94-98) L 01/08/21 03:30 ABG Methemoglobin 0.3 (0.0-1.5) 01/08/21 03:30 ABG Sodium 135.8 mmol/L (136.0-145.0) L 01/08/21 03:30 ABG Potassium 4.4 mmol/L (3.40-4.50) 01/08/21 03:30 ABG Chloride 89.0 mmol/L (98-107) L 01/08/21 03:30 ABG Glucose 210 mg/dL (65-95) H 01/08/21 03:30 Carboxyhemoglobin 0.8 (0.5-1.5) 01/08/21 03:30 FiO2 % 85.0 01/08/21 03:30 Sodium 142 mmol/L (137-145) 01/09/21 04:20 Potassium 4.6 mmol/L (3.6-5.0) 01/09/21 04:20 Chloride 96.4 mmol/L (98-107) L 01/09/21 04:20 Carbon Dioxide 32 mmol/L (22-30) H D 01/09/21 04:20 Anion Gap 18 mmol/L 01/09/21 04:20 BUN 67 mg/dL (7-17) H 01/09/21 04:20 Creatinine 5.8 mg/dL (0.6-1.2) H 01/09/21 04:20 Estimated GFR 9 ml/min 01/09/21 04:20 BUN/Creatinine Ratio 12 % 01/09/21 04:20 Glucose 171 mg/dL (65-100) H 01/09/21 04:20 POC Glucose 159 mg/dL (70-105) H 01/09/21 03:31 Hemoglobin A1c 10.3 % (4-6) H 12/21/20 05:50 Lactic Acid 1.40 mmol/L (0.7-2.0) 12/21/20 05:50 Calcium 7.9 mg/dL (8.4-10.2) L 01/09/21 04:20 Phosphorus 6.70 mg/dL (2.5-4.5) H 01/08/21 04:29 Magnesium 2.50 mg/dL (1.7-2.3) H 01/08/21 04:29 Ferritin 1526.0 ng/mL (10.0-200.0) H 01/03/21 16:00 Total Bilirubin 1.70 mg/dL (0.1-1.2) H 01/09/21 04:20 Direct Bilirubin 0.2 mg/dL (0-0.2) 01/05/21 04:09 Indirect Bilirubin 0.4 mg/dL 01/05/21 04:09 AST 94 units/L (5-40) H 01/09/21 04:20 ALT 108 units/L (7-56) H 01/09/21 04:20 Alkaline Phosphatase 159 units/L (35-129) H 01/09/21 04:20 Lactate Dehydrogenase 815 units/L (91-180) H 01/03/21 16:00 Troponin T < 0.010 ng/mL (0.00-0.029) 12/20/20 19:27 C-Reactive Protein 0.40 mg/dL (0.00-1.30) 01/03/21 16:00 Total Protein 5.3 g/dL (6.3-8.2) L 01/09/21 04:20 Albumin 2.5 g/dL (3.9-5) L 01/09/21 04:20 Albumin/Globulin Ratio 0.9 % 01/09/21 04:20 Procalcitonin 0.07 ng/mL (<0.15) 12/26/20 11:08 Arterial Blood Glucose 210 mg/dL (65-95) H 01/08/21 03:30 Arterial Blood Ionized Calcium 3.9 mg/dL (4.6-5.3) L 01/07/21 04:23 Urine Color Yellow (Yellow) 12/22/20 03:00 Urine Turbidity Clear (Clear) 12/22/20 03:00 Urine pH 5.0 (5.0-7.0) 12/22/20 03:00 Ur Specific [place] 1.019 (1.003-1.030) 12/22/20 03:00 Urine Protein 100 mg/dl mg/dL (Negative) 12/22/20 03:00 Urine Glucose (UA) 50 mg/dL (Negative) 12/22/20 03:00 Urine Ketones Neg mg/dL (Negative) 12/22/20 03:00 Urine Blood Sm (Negative) 12/22/20 03:00 Urine Nitrite Neg (Negative) 12/22/20 03:00 Urine Bilirubin Neg (Negative) 12/22/20 03:00 Urine Urobilinogen 2.0 mg/dL (<2.0) 12/22/20 03:00 Ur Leukocyte Esterase Neg (Negative) 12/22/20 03:00 Urine WBC (Auto) 1.0 /HPF (0.0-6.0) 12/22/20 03:00 Urine RBC (Auto) 1.0 /HPF (0.0-6.0) 12/22/20 03:00 U Epithel Cells (Auto) 3.0 /HPF (0-13.0) 12/22/20 03:00 Urine Bacteria (Auto) 1+ /HPF (Negative) 12/22/20 03:00 Urine Mucus Few /HPF 12/22/20 03:00 Urine Eosinophils None seen (None Seen) 12/22/20 03:00 Urine Creatinine 117.9 mg/dL (0.1-20.0) H 12/22/20 03:00 Urine Sodium 67 mmol/L 12/22/20 03:00 Coronavirus (PCR) Positive (Negative) A 12/21/20 10:28 Hepatitis A IgM Ab Non-reactive (NonReactive) 12/22/20 06:00 Hep Bs Antigen Non-reactive (Negative) 12/22/20 06:00 Hep B Core IgM Ab Non-reactive (NonReactive) 12/22/20 06:00 Hepatitis C Antibody Non-reactive (NonReactive) 12/22/20 06:00 Microbiology: Microbiology 01/05/21 16:10 Tracheal Aspirate Sputum Culture - Final Curtis/IV: Voiding Method Indwelling Catheter Active Medications - Current Medications Current Medications: Generic Name Dose Route Start Last Admin Trade Name Freq PRN Reason Stop Dose Admin Acetaminophen 650 mg 05/10/21 23:15 12/24/20 09:40 Acetaminophen 325 Mg Tab PO 650 mg Q4H PRN Administration Pain MILD(1-3)/Fever >100.5/VARGAS Albuterol 2.5 mg 12/21/20 12:00 Albuterol 2.5 Mg/3 Ml Nebu IH Q4HRT PRN Shortness Of Breath Lipase/Protease/Amylase 1 each 01/05/21 17:30 Lipase 10,500/Protease 25,000/Amylase 43,750 (Units) Dr Cap FEEDTUBE PRN PRN For Clogged Feeding Tube Dextrose 50 ml 12/20/20 23:15 Dextrose 50% In Water (25gm) 50 Ml Syringe IV Q30MIN PRN Hypoglycemia Protocol Fentanyl 50 mcg 01/05/21 14:33 01/08/21 10:17 Fentanyl 100 Mcg/2 Ml Inj IV 50 mcg Q10MIN PRN Administration ANALGESIA Heparin Sodium (Porcine) 5,400 unit 01/08/21 11:08 Heparin 10,000 Units/10 Ml Vial 40 unit/kg (5400 unit) IV Q6H PRN Anti-Xa Assay < 0.1 units/ml Heparin Sodium (Porcine) 3,000 unit 01/08/21 14:12 01/08/21 18:40 Heparin 10,000 Units/10 Ml Vial IV 3,000 unit FRITZ PRN Administration hemodialysis Hydralazine HCl 10 mg 01/05/21 10:28 01/06/21 04:59 Hydralazine 20 Mg/1 Ml Inj IV 10 mg Q6H PRN Administration SBP >/=160; DBP >/=100 Propofol 1,000 mg in 100 mls @ 3.882 mls/hr 01/05/21 15:00 01/08/21 06:12 Diprivan 10 Mg/Ml IV 0 mcg/kg/min TITR TAMEKA 0 mls/hr Titration Protocol 5 MCG/KG/MIN Fentanyl Citrate 2,000 mcg in 100 mls @ 6.47 mls/hr 01/05/21 15:00 01/09/21 07:50 Fentanyl Drip Premix IV 2 mcg/kg/hr TITR TAMEKA 12.94 mls/hr Titration Protocol 1 MCG/KG/HR NORepinephrine/NS 8 MG-250 ML 8 mg in 250 mls @ 3.75 mls/hr 01/07/21 11:00 01/09/21 05:18 Norepinephrine/Ns 8 Mg-250 Ml (Double Conc) IV 30 mcg/min TITRATE TAMEKA 56.25 mls/hr Administration Protocol 2 MCG/MIN Amiodarone HCl 900 mg/ 500 mls @ 33.333 mls/hr 01/08/21 03:00 01/08/21 18:01 Dextrose IV 1 mg/min DIRECT TAMEKA 33.333 mls/hr Administration Protocol 1 MG/MIN Heparin Sodium/Sodium Chloride 25,000 unit in 500 mls @ 30 mls/hr 01/08/21 11:00 01/09/21 07:07 Heparin/ 0.45% Nacl-25,000 Unit/500 Ml IV 1,000 units/hr TITR TAMEKA 20 mls/hr Titration Protocol 1,500 UNITS/HR Vasopressin 20 unit/ Sodium 101 mls @ 9.09 mls/hr 01/08/21 11:00 01/09/21 06:56 Chloride IV 0.03 units/min TITR TAMEKA 9.09 mls/hr Administration Protocol 0.03 UNITS/MIN Phenylephrine HCl 100 mg/ 100 mls @ 3 mls/hr 01/08/21 14:00 01/09/21 08:36 Sodium Chloride IV 20 mcg/min TITR TAMEKA 1.2 mls/hr Titration Protocol 50 MCG/MIN Sodium Chloride 100 mls @ 999 mls/hr 01/08/21 14:12 Nacl 0.9% IV FRITZ PRN Hypotension Insulin Human Isoph/Insulin Regular 20 unit 01/07/21 17:00 01/08/21 16:50 Insulin Nph/Regular 70/30 Inj SUB-Q 20 unit BIDDIAB TAMEKA Administration Insulin Human Lispro 0 unit 01/07/21 00:00 01/09/21 08:39 Insulin Lispro 100 Unit/Ml SUB-Q Not Given Q4H [facility] Protocol Magnesium Hydroxide 30 ml 12/20/20 23:15 Magnesium Hydroxide (Mom) Oral Liqd Udc PO Q4H PRN Constipation Methylprednisolone Sodium Succinate 60 mg 01/07/21 12:00 01/09/21 05:18 Methylprednisolone Sod Succinate 40 Mg/1 Ml Inj IV 60 mg Q6HR TAMEKA Administration Ondansetron HCl 4 mg 12/20/20 23:15 Ondansetron 4 Mg/2 Ml Inj IV Q8H PRN Nausea And Vomiting Pantoprazole Sodium 40 mg 01/08/21 14:00 01/08/21 21:01 Pantoprazole 40 Mg Inj IV 40 mg BID TAMEKA Administration Simple Syrup 15 ml 01/05/21 17:30 Simple Syrup 15 Ml FEEDTUBE PRN PRN Hypoglycemia Simple Syrup 30 ml 01/05/21 17:30 Simple Syrup 15 Ml FEEDTUBE PRN PRN Hypoglycemia Sodium Bicarbonate 325 mg 01/05/21 17:30 Sodium Bicarbonate 325 Mg Tab FEEDTUBE PRN PRN For Clogged Feeding Tube Sodium Chloride 10 ml 12/21/20 10:00 01/08/21 21:01 Sodium Chloride 0.9% 10 Ml Flush Syringe IV 10 ml BID TAMEKA Administration Sodium Chloride 10 ml 12/20/20 23:15 12/21/20 18:48 Sodium Chloride 0.9% 10 Ml Flush Syringe IV 10 ml PRN PRN Administration LINE FLUSH Sodium Chloride 1 applic 12/22/20 12:00 01/08/21 21:42 [place] Saline Nasal Gel 14.1 Gm NS 1 applic BID TAMEKA Administration Sodium Chloride 5 ml 01/07/21 11:22 Sodium Chloride 0.9% 500 Ml Ivpb IV PRN PRN ART-LINE Nutrition/Malnutrition Assess - Dietary Evaluation Nutrition/Malnutrition Findings: Nutrition Notes Start: 12/21/20 09:35 Freq: Status: Active Protocol: Document 01/06/21 07:54 (Rec: 01/06/21 07:58 [email or web address]) Nutrition Notes Need for Assessment generated from: MD Order Initial or Follow up Reassessment Current Diagnosis Diabetes,Hypertension, Respiratory Failure Other Pertinent Diagnosis pneu, COVID 19(+), SOB, Diabetic Neuropathy Current Diet TF Labs/Tests No new labs Pertinent Medications Propofol at 11.646ml/hr ( 307kcal) Height 5 ft 7 in Weight 129.4 kg [place] Body Weight (kg) 61.36 BMI 44.6 Weight Status Morbidly Obese Subjective/Other Information MD order for TF. Pt was intubated. 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 Yes Is Patient Ambulatory and/or Out of Bed No [facility] 2309.676 Kcal/Kg value to use for calculation 15 Approximate Energy Requirements Using 1941 kcal/Kg Calculation Used for Recommendations Kcal/kg Additional Notes PRO needs: >154g (<2.5g/kg IBW ) Fluid needs: 1 mL/kcal or per MD Nutrition Intervention Nutrition Support: Vital AF at 65 ml/hr Flush 100 q4h Kcal 1,872 Protein (gm) 117 Carbohydrates (gm) 197 Fat (gm) 84 Fluid (mL) 1,265 Fiber (gm) 0 Add Supplement/Snack (indicate name/kcal D/c /protein ) Goal #1 Meet at least 75% of energy and protein needs via TF Anticipated Discharge Needs: Unable to determine at this time Follow-Up By: 01/10/21 Additional Comments FU for TF start and tolerance
--- NOTE | 2021-01-09 10:08 | Progress Note ---
Assessment and Plan 1. Acute kidney injury: HOMA in the setting of shock and severe Covid infection. Renal US negative. Pt has green catheter. Requested bladder scan. Monitor renal function. Patient remain anuric. Renal prognosis is guarded. Avoid nephrotoxic agents. Meds dosage based on GFR. Monitor for [employer] needs. Due to significant elevation in the creatinine level anuria patient was started on hemodialysis. D/w her son (01/08) over the phone about the indications, benefits, risks and alternatives involved in hemodialysis. He voiced under standing and gave verbal consent. Hemodialysis: 01/08. 2. FEN: Elevated bicarb level, likely 2/2 hypercapnea. Monitor volume status and lytes. 3. Severe Covid infection: Completed Remdesivir, Received Tocilizumab. Continue IV steroids per pulmonary. Monitor inflammatory markers. Isolation. 4. Acute on chronic hypoxemic respiratory failure, POA: 2/2 COVID infection. CXR b/l opacities. On BIPAP / HFNC O2. 5. A.fib with rapid ventricular rate, new onset: Patient is on Amiodarone drip. Cardiology consulted. 6. Bilateral pneumothorax: S/p bilateral chest tubes. Continue supportive care, surgery and pulmonary following. 7. Diffuse subcutaneous emphysema/small pneumoperitoneum: Supportive care. 8. Shock: Likely 2/2 Covid infection. On Levophed and Phenylephrine, wean as tolerated. 9. DM type 2: SSI. Monitor bl sugar. 10. Elevated Transaminases: Trend. Subjective: Patient was seen and examined at the bedside. Patient is in ICU. Objective: General appearance: well-developed, appears stated age, morbidly obese, intubated, on vent HEENT: ATNC, JENNIFER Neck: trachea midline Respiratory: diminished breath sounds, b/l chest tube Heart: regular, S1S2, no murmur Gastrointestinal: obese, soft, bowel sounds heard, not tender Integumentary: no obvious rash Ext: trace extremity edema Neurologic: not responding : Green catheter Hemodialysis access: R femoral catheter Subjective Date of service: 01/09/21 Principal diagnosis: COVID-19 Objective - Vital Signs Vital signs: Vital Signs - 12hr 01/08/21 01/08/21 01/08/21 22:15 22:31 22:45 Temperature Pulse Rate 106 H 99 H 97 H Pulse Rate [ From Monitor] Respiratory 15 13 28 H Rate Blood Pressure 177/91 154/60 135/79 O2 Sat by Pulse 92 96 97 Oximetry 01/08/21 01/08/21 01/08/21 23:01 23:15 23:25 Temperature Pulse Rate 96 H 96 H 96 H Pulse Rate [ From Monitor] Respiratory 28 H 28 H 28 H Rate Blood Pressure 155/70 149/65 149/65 O2 Sat by Pulse 97 97 98 Oximetry 01/08/21 01/08/21 01/09/21 23:30 23:45 00:00 Temperature Pulse Rate 95 H 96 H 95 H Pulse Rate [ 92 H From Monitor] Respiratory 28 H 28 H 28 H Rate Blood Pressure 146/80 167/61 148/69 O2 Sat by Pulse 96 97 97 Oximetry 01/09/21 01/09/21 01/09/21 00:15 00:31 00:44 Temperature Pulse Rate 95 H 95 H 96 H Pulse Rate [ From Monitor] Respiratory 28 H 28 H Rate Blood Pressure 170/64 157/70 157/70 O2 Sat by Pulse 97 97 99 Oximetry 01/09/21 01/09/21 01/09/21 00:45 01:00 01:15 Temperature Pulse Rate 97 H 95 H 93 H Pulse Rate [ From Monitor] Respiratory 28 H 28 H 28 H Rate Blood Pressure 147/70 155/59 130/68 O2 Sat by Pulse 98 98 Oximetry 01/09/21 01/09/21 01/09/21 01:30 01:45 02:00 Temperature Pulse Rate 92 H 91 H 90 Pulse Rate [ From Monitor] Respiratory 28 H 28 H 28 H Rate Blood Pressure 141/71 136/50 122/67 O2 Sat by Pulse 97 97 Oximetry 01/09/21 01/09/21 01/09/21 02:15 02:31 02:45 Temperature Pulse Rate 89 90 93 H Pulse Rate [ From Monitor] Respiratory 28 H 28 H 28 H Rate Blood Pressure 138/74 117/66 89/57 O2 Sat by Pulse 96 Oximetry 01/09/21 01/09/21 01/09/21 03:00 03:15 03:30 Temperature Pulse Rate 90 89 89 Pulse Rate [ From Monitor] Respiratory 28 H 28 H 28 H Rate Blood Pressure 97/64 110/67 96/69 O2 Sat by Pulse 94 Oximetry 01/09/21 01/09/21 01/09/21 03:45 03:49 04:00 Temperature 99.2 F Pulse Rate 88 90 Pulse Rate [ 88 From Monitor] Respiratory 28 H 28 H Rate Blood Pressure 96/69 103/64 O2 Sat by Pulse 95 Oximetry 01/09/21 01/09/21 01/09/21 04:04 04:15 04:31 Temperature Pulse Rate 88 89 95 H Pulse Rate [ From Monitor] Respiratory 28 H 28 H Rate Blood Pressure 109/58 107/56 125/76 O2 Sat by Pulse 97 94 95 Oximetry 01/09/21 01/09/21 01/09/21 04:45 05:00 05:15 Temperature Pulse Rate 92 H 90 89 Pulse Rate [ From Monitor] Respiratory 28 H 28 H 28 H Rate Blood Pressure 123/69 134/65 133/60 O2 Sat by Pulse 97 96 Oximetry 01/09/21 01/09/21 01/09/21 05:31 05:45 06:00 Temperature Pulse Rate 89 88 87 Pulse Rate [ From Monitor] Respiratory 28 H 28 H 28 H Rate Blood Pressure 122/74 124/66 134/71 O2 Sat by Pulse 95 85 96 Oximetry 01/09/21 01/09/21 01/09/21 06:15 06:30 06:45 Temperature Pulse Rate 86 86 88 Pulse Rate [ From Monitor] Respiratory 28 H 28 H 28 H Rate Blood Pressure 127/69 134/60 125/66 O2 Sat by Pulse 96 96 97 Oximetry 01/09/21 01/09/21 01/09/21 07:00 07:01 07:15 Temperature 99.3 F Pulse Rate 86 85 Pulse Rate [ From Monitor] Respiratory 28 H 28 H Rate Blood Pressure 122/66 125/66 O2 Sat by Pulse 96 96 Oximetry 01/09/21 01/09/21 01/09/21 07:31 07:45 08:00 Temperature Pulse Rate 100 H 90 85 Pulse Rate [ From Monitor] Respiratory 15 28 H 28 H Rate Blood Pressure 157/76 128/82 137/81 O2 Sat by Pulse 92 97 Oximetry 01/09/21 01/09/21 01/09/21 08:15 08:18 08:30 Temperature Pulse Rate 83 84 84 Pulse Rate [ From Monitor] Respiratory 28 H 28 H Rate Blood Pressure 130/75 130/75 129/80 O2 Sat by Pulse 99 97 Oximetry 01/09/21 01/09/21 08:45 09:01 Temperature Pulse Rate 84 83 Pulse Rate [ From Monitor] Respiratory 28 H 28 H Rate Blood Pressure 143/77 183/109 O2 Sat by Pulse 97 97 Oximetry - Lab 01/10/21 12:29 01/10/21 04:00 Most recent lab results ABG pH 7.403 (7.320-7.450) 01/08/21 03:30 ABG O2 Saturation 92.8 (0-100) 01/08/21 03:30 Calcium 7.9 mg/dL (8.4-10.2) L 01/09/21 04:20 Phosphorus 6.70 mg/dL (2.5-4.5) H 01/08/21 04:29 Magnesium 2.50 mg/dL (1.7-2.3) H 01/08/21 04:29 Urine Creatinine 117.9 mg/dL (0.1-20.0) H 12/22/20 03:00 Urine Sodium 67 mmol/L 12/22/20 03:00 Medications & Allergies - Medications Allergies/Adverse Reactions: Allergies No Known Allergies Allergy (Verified 12/29/14 22:38) Home Medications: Home Medications Medication Instructions Recorded Confirmed Last Taken Type Cyclobenzaprine [Flexeril 10 MG 10 mg PO QHS PRN 12/21/20 12/21/20 Unknown History TAB] Gabapentin [Neurontin] 800 mg PO TID 12/21/20 12/21/20 12/20/20 History metFORMIN [Glucophage] 1,000 mg PO BID 12/21/20 12/21/20 12/20/20 History traMADoL [Ultram 50 MG tab] 50 mg PO BID PRN MDD 100 12/21/20 12/21/20 Unknown History Levothyroxine 137 mcg PO QDAY 12/26/20 12/26/20 12/20/20 08:00 History Active Medications: Generic Name Dose Route Start Last Admin Trade Name Freq PRN Reason Stop Dose Admin Acetaminophen 650 mg 12/20/20 23:15 12/24/20 09:40 Acetaminophen 325 Mg Tab PO 650 mg Q4H PRN Administration Pain MILD(1-3)/Fever >100.5/VARGAS Albuterol 2.5 mg 12/21/20 12:00 Albuterol 2.5 Mg/3 Ml Nebu IH Q4HRT PRN Shortness Of Breath Lipase/Protease/Amylase 1 each 01/05/21 17:30 Lipase 10,500/Protease 25,000/Amylase 43,750 (Units) Dr Cap FEEDTUBE PRN PRN For Clogged Feeding Tube Dextrose 50 ml 12/20/20 23:15 Dextrose 50% In Water (25gm) 50 Ml Syringe IV Q30MIN PRN Hypoglycemia Protocol Fentanyl 50 mcg 01/05/21 14:33 01/08/21 10:17 Fentanyl 100 Mcg/2 Ml Inj IV 50 mcg Q10MIN PRN Administration ANALGESIA Heparin Sodium (Porcine) 5,400 unit 01/08/21 11:08 Heparin 10,000 Units/10 Ml Vial 40 unit/kg (5400 unit) IV Q6H PRN Anti-Xa Assay < 0.1 units/ml Heparin Sodium (Porcine) 3,000 unit 01/08/21 14:12 01/08/21 18:40 Heparin 10,000 Units/10 Ml Vial IV 3,000 unit FRITZ PRN Administration hemodialysis Hydralazine HCl 10 mg 01/05/21 10:28 01/06/21 04:59 Hydralazine 20 Mg/1 Ml Inj IV 10 mg Q6H PRN Administration SBP >/=160; DBP >/=100 Propofol 1,000 mg in 100 mls @ 3.882 mls/hr 01/05/21 15:00 01/08/21 06:12 Diprivan 10 Mg/Ml IV 0 mcg/kg/min TITR TAMEKA 0 mls/hr Titration Protocol 5 MCG/KG/MIN Fentanyl Citrate 2,000 mcg in 100 mls @ 6.47 mls/hr 01/05/21 15:00 01/09/21 09:16 Fentanyl Drip Premix IV 2 mcg/kg/hr TITR TAMEKA 12.94 mls/hr Administration Protocol 1 MCG/KG/HR NORepinephrine/NS 8 MG-250 ML 8 mg in 250 mls @ 3.75 mls/hr 01/07/21 11:00 01/09/21 09:14 Norepinephrine/Ns 8 Mg-250 Ml (Double Conc) IV 30 mcg/min TITRATE TAMEKA 56.25 mls/hr Administration Protocol 2 MCG/MIN Amiodarone HCl 900 mg/ 500 mls @ 33.333 mls/hr 01/08/21 03:00 01/09/21 09:12 Dextrose IV 1 mg/min DIRECT TAMEKA 33.333 mls/hr Administration Protocol 1 MG/MIN Heparin Sodium/Sodium Chloride 25,000 unit in 500 mls @ 30 mls/hr 01/08/21 11:00 01/09/21 07:07 Heparin/ 0.45% Nacl-25,000 Unit/500 Ml IV 1,000 units/hr TITR TAMEKA 20 mls/hr Titration Protocol 1,500 UNITS/HR Vasopressin 20 unit/ Sodium 101 mls @ 9.09 mls/hr 01/08/21 11:00 01/09/21 06:56 Chloride IV 0.03 units/min TITR TAMEKA 9.09 mls/hr Administration Protocol 0.03 UNITS/MIN Phenylephrine HCl 100 mg/ 100 mls @ 3 mls/hr 01/08/21 14:00 01/09/21 09:12 Sodium Chloride IV 10 mcg/min TITR TAMEKA 0.6 mls/hr Titration Protocol 50 MCG/MIN Sodium Chloride 100 mls @ 999 mls/hr 01/08/21 14:12 Nacl 0.9% IV FRITZ PRN Hypotension Insulin Human Isoph/Insulin Regular 20 unit 01/07/21 17:00 01/09/21 09:11 Insulin Nph/Regular 70/30 Inj SUB-Q 20 unit BIDDIAB [facility] Administration Insulin Human Lispro 0 unit 01/07/21 00:00 01/09/21 08:39 Insulin Lispro 100 Unit/Ml SUB-Q Not Given Q4H [facility] Protocol Magnesium Hydroxide 30 ml 12/20/20 23:15 Magnesium Hydroxide (Mom) Oral Liqd Udc PO Q4H PRN Constipation Methylprednisolone Sodium Succinate 60 mg 01/07/21 12:00 01/09/21 05:18 Methylprednisolone Sod Succinate 40 Mg/1 Ml Inj IV 60 mg Q6HR TAMEKA Administration Ondansetron HCl 4 mg 12/20/20 23:15 Ondansetron 4 Mg/2 Ml Inj IV Q8H PRN Nausea And Vomiting Pantoprazole Sodium 40 mg 01/08/21 14:00 01/09/21 09:11 Pantoprazole 40 Mg Inj IV 40 mg BID TAMEKA Administration Simple Syrup 15 ml 01/05/21 17:30 Simple Syrup 15 Ml FEEDTUBE PRN PRN Hypoglycemia Simple Syrup 30 ml 01/05/21 17:30 Simple Syrup 15 Ml FEEDTUBE PRN PRN Hypoglycemia Sodium Bicarbonate 325 mg 01/05/21 17:30 Sodium Bicarbonate 325 Mg Tab FEEDTUBE PRN PRN For Clogged Feeding Tube Sodium Chloride 10 ml 12/21/20 10:00 01/09/21 09:18 Sodium Chloride 0.9% 10 Ml Flush Syringe IV 10 ml BID TAMEKA Administration Sodium Chloride 10 ml 12/20/20 23:15 12/21/20 18:48 Sodium Chloride 0.9% 10 Ml Flush Syringe IV 10 ml PRN PRN Administration LINE FLUSH Sodium Chloride 1 applic 12/22/20 12:00 01/09/21 09:13 [place] Saline Nasal Gel 14.1 Gm NS 1 applic BID TAMEKA Administration Sodium Chloride 5 ml 01/07/21 11:22 Sodium Chloride 0.9% 500 Ml Ivpb IV PRN PRN ART-LINE
--- NOTE | 2021-01-09 11:57 | Progress Note ---
Assessment and Plan - Patient Problems (1) HOMA (acute kidney injury) Current Visit: Yes Status: Acute (2) Diabetes Current Visit: Yes Status: Acute (3) Diabetic neuropathy Current Visit: Yes Status: Acute (4) Elevated liver enzymes Current Visit: Yes Status: Acute (5) Hyperglycemia due to type 2 diabetes mellitus Current Visit: Yes Status: Acute (6) ILD (interstitial lung disease) Current Visit: Yes Status: Acute (7) Pneumonia due to COVID-19 virus Current Visit: Yes Status: Acute (8) SIRS (systemic inflammatory response syndrome) Current Visit: Yes Status: Acute (9) Cellulitis Current Visit: No Status: Acute Qualifiers: Site of cellulitis of trunk: back (10) Morbid obesity Current Visit: No Status: Acute Subjective Principal diagnosis: COVID-19 Interval history: Patient remains intubated and sedated. Objective Vital Signs Temp Pulse Pulse Resp BP Pulse Ox 01/09/21 11:49 99.0 F 01/09/21 11:07 84 169/91 96 01/09/21 11:00 83 28 H 169/91 94 01/09/21 10:45 83 28 H 174/96 01/09/21 10:30 81 28 H 176/96 96 01/09/21 10:15 81 28 H 201/67 97 01/09/21 10:00 82 28 H 185/101 99 01/09/21 09:45 83 28 H 170/98 96 01/09/21 09:30 84 28 H 193/106 97 01/09/21 09:15 83 28 H 175/104 96 01/09/21 09:01 83 28 H 183/109 97 01/09/21 08:45 84 28 H 143/77 97 01/09/21 08:30 84 28 H 129/80 97 01/09/21 08:18 84 130/75 99 01/09/21 08:15 83 28 H 130/75 01/09/21 08:00 85 28 H 137/81 97 01/09/21 07:45 90 28 H 128/82 01/09/21 07:31 100 H 15 157/76 92 01/09/21 07:15 85 28 H 125/66 96 01/09/21 07:01 86 28 H 122/66 96 01/09/21 07:00 99.3 F 01/09/21 06:45 88 28 H 125/66 97 05/30/21 06:30 86 28 H 134/60 96 01/09/21 06:15 86 28 H 127/69 96 01/09/21 06:00 87 28 H 134/71 96 01/09/21 05:45 88 28 H 124/66 85 01/09/21 05:31 89 28 H 122/74 95 01/09/21 05:15 89 28 H 133/60 96 01/09/21 05:00 90 28 H 134/65 97 01/09/21 04:45 92 H 28 H 123/69 01/09/21 04:31 95 H 28 H 125/76 95 01/09/21 04:15 89 28 H 107/56 94 01/09/21 04:04 88 109/58 97 01/09/21 04:00 90 88 28 H 103/64 95 01/09/21 03:49 99.2 F 01/09/21 03:45 88 28 H 96/69 01/09/21 03:30 89 28 H 96/69 94 01/09/21 03:15 89 28 H 110/67 01/09/21 03:00 90 28 H 97/64 01/09/21 02:45 93 H 28 H 89/57 01/09/21 02:31 90 28 H 117/66 96 01/09/21 02:15 89 28 H 138/74 01/09/21 02:00 90 28 H 122/67 97 01/09/21 01:45 91 H 28 H 136/50 97 01/09/21 01:30 92 H 28 H 141/71 01/09/21 01:15 93 H 28 H 130/68 01/09/21 01:00 95 H 28 H 155/59 98 01/09/21 00:45 97 H 28 H 147/70 98 01/09/21 00:44 96 H 157/70 99 01/09/21 00:31 95 H 28 H 157/70 97 01/09/21 00:15 95 H 28 H 170/64 97 01/09/21 00:00 95 H 92 H 28 H 148/69 97 01/08/21 23:45 96 H 28 H 167/61 97 01/08/21 23:30 95 H 28 H 146/80 96 01/08/21 23:25 96 H 28 H 149/65 98 01/08/21 23:15 96 H 28 H 149/65 97 01/08/21 23:01 96 H 28 H 155/70 97 01/08/21 22:45 97 H 28 H 135/79 97 01/08/21 22:31 99 H 13 154/60 96 01/08/21 22:15 106 H 15 177/91 92 01/08/21 22:00 98.4 F 98 H 13 189/79 96 01/08/21 21:45 96 H 12 159/69 92 01/08/21 21:30 102 H 14 102/71 94 01/08/21 21:16 102 H 21 126/97 95 01/08/21 21:00 99 H 21 126/97 95 01/08/21 20:45 103 H 20 123/92 01/08/21 20:30 106 H 22 172/92 93 01/08/21 20:23 106 H 175/82 94 01/08/21 20:16 88 29 H 214/91 90 01/08/21 20:15 91 H 214/91 01/08/21 20:00 98.6 F 89 105 H 28 H 198/81 96 01/08/21 19:45 96 H 166/86 01/08/21 19:44 96 H 28 H 166/86 98 01/08/21 19:42 94 H 28 H 166/86 98 01/08/21 19:40 93 H 28 H 166/86 98 01/08/21 19:38 91 H 28 H 174/93 97 01/08/21 19:36 83 28 H 180/88 95 01/08/21 19:34 80 28 H 155/67 92 01/08/21 19:32 101 H 28 H 110/63 94 01/08/21 19:30 80 28 H 155/67 95 01/08/21 19:28 99 H 28 H 110/63 95 01/08/21 19:26 105 H 28 H 110/63 95 01/08/21 19:24 103 H 28 H 110/63 95 01/08/21 19:22 104 H 28 H 110/63 95 01/08/21 19:20 104 H 28 H 110/63 95 01/08/21 19:18 102 H 28 H 110/63 94 01/08/21 19:16 104 H 28 H 110/63 94 05/29/21 19:14 104 H 28 H 110/63 93 05/29/21 19:12 105 H 28 H 110/63 95 05/29/21 19:10 105 H 28 H 110/63 95 05/29/21 19:08 105 H 28 H 110/63 96 05/29/21 19:06 105 H 28 H 110/63 96 05/29/21 19:04 105 H 28 H 110/63 96 05/29/21 19:02 105 H 28 H 110/63 97 05/29/ 19:00 105 H 28 H 110/63 99 05/29/ 18:58 105 H 28 H 110/63 97 05/29/21 18:56 105 H 28 H 105/61 97 05/29/ 18:54 105 H 28 H 105/61 05/29/ 18:52 105 H 28 H 105/61 97 05/29/ 18:50 104 H 28 H 105/61 97 05/29/ 18:48 103 H 28 H 105/61 99 05/29/ 18:46 101 H 28 H 105/61 05/29/ 18:45 98.6 F 104 H 16 105/63 05/29/21 18:44 100 H 28 H 105/61 99 05/29/21 18:42 102 H 28 H 105/61 98 05/29/21 18:40 100 H 28 H 105/61 98 05/29/21 18:38 102 H 28 H 105/61 98 05/29/21 18:36 102 H 28 H 105/61 98 05/29/21 18:34 102 H 28 H 105/61 98 05/29/21 18:32 103 H 28 H 105/61 98 05/29/21 18:30 103 H 28 H 105/61 96 05/29/21 18:28 103 H 28 H 103/61 98 05/29/21 18:26 104 H 28 H 103/61 98 05/29/21 18:24 104 H 28 H 103/61 98 05/29/21 18:22 103 H 28 H 103/61 98 05/29/21 18:20 104 H 28 H 103/61 05/29/21 18:18 104 H 28 H 134/72 98 05/29/21 18:16 105 H 28 H 134/72 98 05/29/21 18:14 102 H 28 H 134/72 97 01/08/21 18:12 102 H 28 H 134/72 97 01/08/21 18:10 102 H 28 H 134/72 01/08/21 18:08 101 H 28 H 134/72 97 01/08/21 18:06 101 H 28 H 134/72 98 01/08/21 17:30 102 H 28 H 116/73 96 01/08/21 17:16 101 H 28 H 116/73 97 01/08/21 17:00 101 H 28 H 109/77 98 01/08/21 16:46 101 H 27 H 107/71 97 01/08/21 16:30 102 H 28 H 111/61 94 01/08/21 16:16 102 H 27 H 109/71 97 01/08/21 16:00 102 H 102 H 28 H 110/71 97 01/08/21 15:46 102 H 28 H 119/66 97 01/08/21 15:30 102 H 28 H 115/71 01/08/21 15:16 102 H 28 H 110/71 97 01/08/21 15:14 102 H 110/71 97 01/08/21 15:00 102 H 28 H 111/73 01/08/21 14:46 103 H 28 H 111/73 97 01/08/21 14:30 103 H 28 H 120/70 95 01/08/21 14:16 103 H 28 H 111/71 97 01/08/21 14:00 103 H 28 H 116/69 01/08/21 13:46 103 H 28 H 116/72 97 01/08/21 13:30 103 H 28 H 101/74 94 01/08/21 13:16 103 H 28 H 108/72 97 01/08/21 13:00 103 H 28 H 126/71 99 01/08/21 12:46 102 H 28 H 207/50 97 01/08/21 12:30 107 H 28 H 112/91 97 01/08/21 12:16 103 H 28 H 112/91 97 01/08/21 12:00 103 H 103 H 28 H 112/91 98 - Labs and Meds Cardiac Enzymes 01/09/21 Range/Units 04:20 AST 94 H (5-40) units/L Coagulation 01/08/21 Range/Units 11:50 PT 14.0 (12.2-14.9) Sec. INR 1.09 (0.87-1.13) APTT 26.5 (24.2-36.6) Sec. Comprehensive Metabolic Panel 01/09/21 Range/Units 04:20 Sodium 142 (137-145) mmol/L Potassium 4.6 (3.6-5.0) mmol/L Chloride 96.4 L (98-107) mmol/L Carbon Dioxide 32 H D (22-30) mmol/L BUN 67 H (7-17) mg/dL Creatinine 5.8 H (0.6-1.2) mg/dL Glucose 171 H (65-100) mg/dL Calcium 7.9 L (8.4-10.2) mg/dL AST 94 H (5-40) units/L ALT 108 H (7-56) units/L Alkaline Phosphatase 159 H (35-129) units/L Total Protein 5.3 L (6.3-8.2) g/dL Albumin 2.5 L (3.9-5) g/dL
--- NOTE | 2021-01-09 12:00 | Progress Note ---
Assessment and Plan Patient remains critically ill with guarded prognosis Echocardiogram was so technically difficult that was essentially uninterpretable. Cut amiodarone dose in half as heart rate/rhythm has improved. Continue IV heparin in the absence of any other contraindications/bleeding. We will continue to watch closely. - Patient Problems (1) HOMA (acute kidney injury) Current Visit: Yes Status: Acute (2) Diabetes Current Visit: Yes Status: Acute (3) Diabetic neuropathy Current Visit: Yes Status: Acute (4) Elevated liver enzymes Current Visit: Yes Status: Acute (5) Hyperglycemia due to type 2 diabetes mellitus Current Visit: Yes Status: Acute (6) ILD (interstitial lung disease) Current Visit: Yes Status: Acute (7) Pneumonia due to COVID-19 virus Current Visit: Yes Status: Acute (8) SIRS (systemic inflammatory response syndrome) Current Visit: Yes Status: Acute (9) Cellulitis Current Visit: No Status: Acute Qualifiers: Site of cellulitis of trunk: back (10) Morbid obesity Current Visit: No Status: Acute Subjective Principal diagnosis: COVID-19 Objective Vital Signs Temp Pulse Pulse Resp BP Pulse Ox 01/09/21 11:49 99.0 F 01/09/21 11:07 84 169/91 96 01/09/21 11:00 83 28 H 169/91 94 01/09/21 10:45 83 28 H 174/96 01/09/21 10:30 81 28 H 176/96 96 01/09/21 10:15 81 28 H 201/67 97 01/09/21 10:00 82 28 H 185/101 99 01/09/21 09:45 83 28 H 170/98 96 01/09/21 09:30 84 28 H 193/106 97 01/09/21 09:15 83 28 H 175/104 96 01/09/21 09:01 83 28 H 183/109 97 01/09/21 08:45 84 28 H 143/77 97 01/09/21 08:30 84 28 H 129/80 97 01/09/21 08:18 84 130/75 99 01/09/21 08:15 83 28 H 130/75 01/09/21 08:00 85 28 H 137/81 97 01/09/21 07:45 90 28 H 128/82 01/09/21 07:31 100 H 15 157/76 92 01/09/21 07:15 85 28 H 125/66 96 01/09/21 07:01 86 28 H 122/66 96 01/09/21 07:00 99.3 F 01/09/21 06:45 88 28 H 125/66 97 01/09/21 06:30 86 28 H 134/60 96 01/09/21 06:15 86 28 H 127/69 96 01/09/21 06:00 87 28 H 134/71 96 01/09/21 05:45 88 28 H 124/66 85 01/09/21 05:31 89 28 H 122/74 95 01/09/21 05:15 89 28 H 133/60 96 01/09/21 05:00 90 28 H 134/65 97 01/09/21 04:45 92 H 28 H 123/69 01/09/21 04:31 95 H 28 H 125/76 95 01/09/21 04:15 89 28 H 107/56 94 01/09/21 04:04 88 109/58 97 01/09/21 04:00 90 88 28 H 103/64 95 01/09/21 03:49 99.2 F 01/09/21 03:45 88 28 H 96/69 01/09/21 03:30 89 28 H 96/69 94 01/09/21 03:15 89 28 H 110/67 01/09/21 03:00 90 28 H 97/64 01/09/21 02:45 93 H 28 H 89/57 01/09/21 02:31 90 28 H 117/66 96 01/09/21 02:15 89 28 H 138/74 01/09/21 02:00 90 28 H 122/67 97 01/09/21 01:45 91 H 28 H 136/50 97 01/09/21 01:30 92 H 28 H 141/71 01/09/21 01:15 93 H 28 H 130/68 01/09/21 01:00 95 H 28 H 155/59 98 01/09/21 00:45 97 H 28 H 147/70 98 01/09/21 00:44 96 H 157/70 99 01/09/21 00:31 95 H 28 H 157/70 97 01/09/21 00:15 95 H 28 H 170/64 97 01/09/21 00:00 95 H 92 H 28 H 148/69 97 01/08/21 23:45 96 H 28 H 167/61 97 01/08/21 23:30 95 H 28 H 146/80 96 01/08/21 23:25 96 H 28 H 149/65 98 01/08/21 23:15 96 H 28 H 149/65 97 01/08/21 23:01 96 H 28 H 155/70 97 01/08/21 22:45 97 H 28 H 135/79 97 01/08/21 22:31 99 H 13 154/60 96 01/08/21 22:15 106 H 15 177/91 92 01/08/21 22:00 98.4 F 98 H 13 189/79 96 01/08/21 21:45 96 H 12 159/69 92 01/08/21 21:30 102 H 14 102/71 94 01/08/21 21:16 102 H 21 126/97 95 01/08/21 21:00 99 H 21 126/97 95 01/08/21 20:45 103 H 20 123/92 01/08/21 20:30 106 H 22 172/92 93 01/08/21 20:23 106 H 175/82 94 01/08/21 20:16 88 29 H 214/91 90 01/08/21 20:15 91 H 214/91 01/08/21 20:00 98.6 F 89 105 H 28 H 198/81 96 01/08/21 19:45 96 H 166/86 01/08/21 19:44 96 H 28 H 166/86 98 01/08/21 19:42 94 H 28 H 166/86 98 01/08/21 19:40 93 H 28 H 166/86 98 01/08/21 19:38 91 H 28 H 174/93 97 01/08/21 19:36 83 28 H 180/88 95 01/08/21 19:34 80 28 H 155/67 92 01/08/21 19:32 101 H 28 H 110/63 94 01/08/21 19:30 80 28 H 155/67 95 01/08/21 19:28 99 H 28 H 110/63 95 01/08/21 19:26 105 H 28 H 110/63 95 01/08/21 19:24 103 H 28 H 110/63 95 01/08/21 19:22 104 H 28 H 110/63 95 01/08/21 19:20 104 H 28 H 110/63 95 05/29/21 19:18 102 H 28 H 110/63 94 05/29/ 19:16 104 H 28 H 110/63 94 05/29 19:14 104 H 28 H 110/63 93 05/29/ 19:12 105 H 28 H 110/63 95 05/29/ 19:10 105 H 28 H 110/63 95 05/29/ 19:08 105 H 28 H 110/63 96 0529 19:06 105 H 28 H 110/63 96 05/29 19:04 105 H 28 H 110/63 96 05/29/ 19:02 105 H 28 H 110/63 97 05/29 19:00 105 H 28 H 110/63 99 05/29 18:58 105 H 28 H 110/63 97 05/29 18:56 105 H 28 H 105/61 97 05/29/ 18:54 105 H 28 H 105/61 05/29/ 18:52 105 H 28 H 105/61 97 05/29/ 18:50 104 H 28 H 105/61 97 05/29/ 18:48 103 H 28 H 105/61 99 05/29/21 18:46 101 H 28 H 105/61 05/29/ 18:45 98.6 F 104 H 16 105/63 05/29/ 18:44 100 H 28 H 105/61 99 05/29/21 18:42 102 H 28 H 105/61 98 05/29/21 18:40 100 H 28 H 105/61 98 05/29/21 18:38 102 H 28 H 105/61 98 05/29/21 18:36 102 H 28 H 105/61 98 05/29/21 18:34 102 H 28 H 105/61 98 05/29/21 18:32 103 H 28 H 105/61 98 05/29/21 18:30 103 H 28 H 105/61 96 05/29/21 18:28 103 H 28 H 103/61 98 05/29/21 18:26 104 H 28 H 103/61 98 05/29/21 18:24 104 H 28 H 103/61 98 05/29/21 18:22 103 H 28 H 103/61 98 05/29/21 18:20 104 H 28 H 103/61 01/08/21 18:18 104 H 28 H 134/72 98 01/08/21 18:16 105 H 28 H 134/72 98 01/08/21 18:14 102 H 28 H 134/72 97 01/08/21 18:12 102 H 28 H 134/72 97 01/08/21 18:10 102 H 28 H 134/72 01/08/21 18:08 101 H 28 H 134/72 97 01/08/21 18:06 101 H 28 H 134/72 98 01/08/21 17:30 102 H 28 H 116/73 96 01/08/21 17:16 101 H 28 H 116/73 97 01/08/21 17:00 101 H 28 H 109/77 98 01/08/21 16:46 101 H 27 H 107/71 97 01/08/21 16:30 102 H 28 H 111/61 94 01/08/21 16:16 102 H 27 H 109/71 97 01/08/21 16:00 102 H 102 H 28 H 110/71 97 01/08/21 15:46 102 H 28 H 119/66 97 01/08/21 15:30 102 H 28 H 115/71 01/08/21 15:16 102 H 28 H 110/71 97 01/08/21 15:14 102 H 110/71 97 01/08/21 15:00 102 H 28 H 111/73 01/08/21 14:46 103 H 28 H 111/73 97 01/08/21 14:30 103 H 28 H 120/70 95 01/08/21 14:16 103 H 28 H 111/71 97 01/08/21 14:00 103 H 28 H 116/69 01/08/21 13:46 103 H 28 H 116/72 97 01/08/21 13:30 103 H 28 H 101/74 94 01/08/21 13:16 103 H 28 H 108/72 97 01/08/21 13:00 103 H 28 H 126/71 99 01/08/21 12:46 102 H 28 H 207/50 97 01/08/21 12:30 107 H 28 H 112/91 97 01/08/21 12:16 103 H 28 H 112/91 97 01/08/21 12:00 103 H 103 H 28 H 112/91 98 - Labs and Meds Cardiac Enzymes 01/09/21 Range/Units 04:20 AST 94 H (5-40) units/L Coagulation 01/08/21 Range/Units 11:50 PT 14.0 (12.2-14.9) Sec. INR 1.09 (0.87-1.13) APTT 26.5 (24.2-36.6) Sec. Comprehensive Metabolic Panel 01/09/21 Range/Units 04:20 Sodium 142 (137-145) mmol/L Potassium 4.6 (3.6-5.0) mmol/L Chloride 96.4 L (98-107) mmol/L Carbon Dioxide 32 H D (22-30) mmol/L BUN 67 H (7-17) mg/dL Creatinine 5.8 H (0.6-1.2) mg/dL Glucose 171 H (65-100) mg/dL Calcium 7.9 L (8.4-10.2) mg/dL AST 94 H (5-40) units/L ALT 108 H (7-56) units/L Alkaline Phosphatase 159 H (35-129) units/L Total Protein 5.3 L (6.3-8.2) g/dL Albumin 2.5 L (3.9-5) g/dL
--- NOTE | 2021-01-09 12:13 | Progress Note ---
Assessment and Plan 55 year old female with respiratory failure, COVID+. Bilateral pnuemothorax s/p bilateral chest tube placement and subsequent resolution of ptx. subQ emphysema is improving. Maintain chest tubes to suction. Guarded prognosis as she is requiring multiple pressor support. No additional surgical plans at this time. Subjective Date of service: 01/09/21 Narrative: no acute events overnight Objective Vital Signs - 12hr 01/09/21 01/09/21 01/09/21 00:15 00:31 00:44 Temperature Pulse Rate 95 H 95 H 96 H Pulse Rate [ From Monitor] Respiratory 28 H 28 H Rate Blood Pressure 170/64 157/70 157/70 O2 Sat by Pulse 97 97 99 Oximetry 01/09/21 01/09/21 01/09/21 00:45 01:00 01:15 Temperature Pulse Rate 97 H 95 H 93 H Pulse Rate [ From Monitor] Respiratory 28 H 28 H 28 H Rate Blood Pressure 147/70 155/59 130/68 O2 Sat by Pulse 98 98 Oximetry 01/09/21 01/09/21 01/09/21 01:30 01:45 02:00 Temperature Pulse Rate 92 H 91 H 90 Pulse Rate [ From Monitor] Respiratory 28 H 28 H 28 H Rate Blood Pressure 141/71 136/50 122/67 O2 Sat by Pulse 97 97 Oximetry 01/09/21 01/09/21 01/09/21 02:15 02:31 02:45 Temperature Pulse Rate 89 90 93 H Pulse Rate [ From Monitor] Respiratory 28 H 28 H 28 H Rate Blood Pressure 138/74 117/66 89/57 O2 Sat by Pulse 96 Oximetry 01/09/21 01/09/21 01/09/21 03:00 03:15 03:30 Temperature Pulse Rate 90 89 89 Pulse Rate [ From Monitor] Respiratory 28 H 28 H 28 H Rate Blood Pressure 97/64 110/67 96/69 O2 Sat by Pulse 94 Oximetry 01/09/21 01/09/21 01/09/21 03:45 03:49 04:00 Temperature 99.2 F Pulse Rate 88 90 Pulse Rate [ 88 From Monitor] Respiratory 28 H 28 H Rate Blood Pressure 96/69 103/64 O2 Sat by Pulse 95 Oximetry 01/09/21 01/09/21 01/09/21 04:04 04:15 04:31 Temperature Pulse Rate 88 89 95 H Pulse Rate [ From Monitor] Respiratory 28 H 28 H Rate Blood Pressure 109/58 107/56 125/76 O2 Sat by Pulse 97 94 95 Oximetry 01/09/21 01/09/21 01/09/21 04:45 05:00 05:15 Temperature Pulse Rate 92 H 90 89 Pulse Rate [ From Monitor] Respiratory 28 H 28 H 28 H Rate Blood Pressure 123/69 134/65 133/60 O2 Sat by Pulse 97 96 Oximetry 01/09/21 01/09/21 01/09/21 05:31 05:45 06:00 Temperature Pulse Rate 89 88 87 Pulse Rate [ From Monitor] Respiratory 28 H 28 H 28 H Rate Blood Pressure 122/74 124/66 134/71 O2 Sat by Pulse 95 85 96 Oximetry 01/09/21 01/09/21 01/09/21 06:15 06:30 06:45 Temperature Pulse Rate 86 86 88 Pulse Rate [ From Monitor] Respiratory 28 H 28 H 28 H Rate Blood Pressure 127/69 134/60 125/66 O2 Sat by Pulse 96 96 97 Oximetry 01/09/21 01/09/21 01/09/21 07:00 07:01 07:15 Temperature 99.3 F Pulse Rate 86 85 Pulse Rate [ From Monitor] Respiratory 28 H 28 H Rate Blood Pressure 122/66 125/66 O2 Sat by Pulse 96 96 Oximetry 01/09/21 01/09/21 01/09/21 07:31 07:45 08:00 Temperature Pulse Rate 100 H 90 85 Pulse Rate [ From Monitor] Respiratory 15 28 H 28 H Rate Blood Pressure 157/76 128/82 137/81 O2 Sat by Pulse 92 97 Oximetry 01/09/21 01/09/21 01/09/21 08:15 08:18 08:30 Temperature Pulse Rate 83 84 84 Pulse Rate [ From Monitor] Respiratory 28 H 28 H Rate Blood Pressure 130/75 130/75 129/80 O2 Sat by Pulse 99 97 Oximetry 01/09/21 01/09/21 01/09/21 08:45 09:01 09:15 Temperature Pulse Rate 84 83 83 Pulse Rate [ From Monitor] Respiratory 28 H 28 H 28 H Rate Blood Pressure 143/77 183/109 175/104 O2 Sat by Pulse 97 97 96 Oximetry 01/09/21 01/09/21 01/09/21 09:30 09:45 10:00 Temperature Pulse Rate 84 83 82 Pulse Rate [ From Monitor] Respiratory 28 H 28 H 28 H Rate Blood Pressure 193/106 170/98 185/101 O2 Sat by Pulse 97 96 99 Oximetry 01/09/21 01/09/21 01/09/21 10:15 10:30 10:45 Temperature Pulse Rate 81 81 83 Pulse Rate [ From Monitor] Respiratory 28 H 28 H 28 H Rate Blood Pressure 201/67 176/96 174/96 O2 Sat by Pulse 97 96 Oximetry 01/09/21 01/09/21 01/09/21 11:00 11:07 11:49 Temperature 99.0 F Pulse Rate 83 84 Pulse Rate [ From Monitor] Respiratory 28 H Rate Blood Pressure 169/91 169/91 O2 Sat by Pulse 94 96 Oximetry - General physical appearance Narrative Exam: CXR shows no ptx, and improved sub q emphysema no distress, no pain, obese - Respiratory normal expansion, normal respiratory effort, other (intubated on vent, both chest tubes to suction, left with small expiratory air leak, PEEP 15) - Abdomen soft, not tender - Labs 01/08/21 08:26 01/09/21 04:20 Diabetes panel 01/09/21 Range/Units 04:20 Sodium 142 (137-145) mmol/L Potassium 4.6 (3.6-5.0) mmol/L Chloride 96.4 L (98-107) mmol/L Carbon Dioxide 32 H D (22-30) mmol/L BUN 67 H (7-17) mg/dL Creatinine 5.8 H (0.6-1.2) mg/dL Glucose 171 H (65-100) mg/dL Calcium 7.9 L (8.4-10.2) mg/dL AST 94 H (5-40) units/L ALT 108 H (7-56) units/L Alkaline Phosphatase 159 H (35-129) units/L Total Protein 5.3 L (6.3-8.2) g/dL Albumin 2.5 L (3.9-5) g/dL Calcium panel 01/09/21 Range/Units 04:20 Calcium 7.9 L (8.4-10.2) mg/dL Albumin 2.5 L (3.9-5) g/dL Pituitary panel 01/09/21 Range/Units 04:20 Sodium 142 (137-145) mmol/L Potassium 4.6 (3.6-5.0) mmol/L Chloride 96.4 L (98-107) mmol/L Carbon Dioxide 32 H D (22-30) mmol/L BUN 67 H (7-17) mg/dL Creatinine 5.8 H (0.6-1.2) mg/dL Glucose 171 H (65-100) mg/dL Calcium 7.9 L (8.4-10.2) mg/dL Adrenal panel 01/09/21 Range/Units 04:20 Sodium 142 (137-145) mmol/L Potassium 4.6 (3.6-5.0) mmol/L Chloride 96.4 L (98-107) mmol/L Carbon Dioxide 32 H D (22-30) mmol/L BUN 67 H (7-17) mg/dL Creatinine 5.8 H (0.6-1.2) mg/dL Glucose 171 H (65-100) mg/dL Calcium 7.9 L (8.4-10.2) mg/dL Total Bilirubin 1.70 H (0.1-1.2) mg/dL AST 94 H (5-40) units/L ALT 108 H (7-56) units/L Alkaline Phosphatase 159 H (35-129) units/L Total Protein 5.3 L (6.3-8.2) g/dL Albumin 2.5 L (3.9-5) g/dL
--- NOTE | 2021-01-09 12:25 | Progress Note ---
Assessment and Plan Assessment and Plan 55 y/o female with acute respiratory failure secondary to cOVID 19 with prior history of ILD on a CT in [facility] 01/09/2021: Overall status seems to have improved. Patient has weaned off of Jose Miguel-Synephrine and currently being weaned off Levophed. Blood pressure has remained stable with last MAP of 97. Blood gases show some improvement in oxygenation and FiO2 has been weaned down to 90% and PEEP is at 15 centimeter. Chest tube has been present bilaterally left one has air leak. Chest x-ray showed no evidence of pneumothoraces on either side. Chest tubes right position. Massive subcu emphysema still present. Patient was dialyzed yesterday and seems to have tolerated well. At this point we will continue to wean FiO2 as tolerated. We will try to drop FiO2 to see 80%. Continue to wean off vasopressors as tolerated as well. We will continue with the chest tube with suction. Prognosis remains very guarded. Total critical care time was 31- minute 01/08/2021: Worsening clinical status since yesterday. Worsening renal function being considered for dialysis however blood pressure is low requiring 2 different vasopressors. If blood pressure remains low may require additional Jose Miguel-Synephrine. Possibility of GI bleeding also being raised however now on heparin for new onset of A. fib with RVR. Also on amiodarone. Cardiology has been consulted. Patient however is converted to sinus rhythm at this point. Patient remains on mechanical ventilator at 100% with PEEP of 20 with adequate blood gases. Patient has Vas-Cath inserted. And dialysis is pending. Overall prognosis is extremely poor. total critical care time was 35 minutes 01/07/21: Renal failure now with minimal urine output. pH is better so will stop bicarb drip. Bilateral chest tubes in place. Will attempt art line placement and determining now if central access is needed. OVerall prognosis is very very guarded. Agree with follow ABG in am and need to obtain labs if possible to assess renal function. overall prognosis is very very guarded to poor. 01/06/21: May need to give another dose of lasix today. Await Chemistry from this am. Practicing lung protective strategy so low tidal volumes with permissive hypercapnea is acceptable as long as pH is 7.2 and above. Will repeat gas this afternoon on new settings. Feed patient. Guarded prognosis. 01/05/21: Continue bipap therapy for now. Continue stress dose steroids. Hopeful patient will improve but may ultimately require intubation. Very very sick lungs prior to acquiring covid. 01/04/21: No lasix again today. Continue Free water at current IV rate as stated below. Check labs tomorrow. Continue PPV and attempt to wean FiO2 accordingly. Consider nutrition consult for PPN. Prognosis still remains very guarded. 01/03/21: continue between HFNC and bipap. Will hold on lasix today as patient is getting more hypernatremia and worsening renal function. All secondary to lack of eating and drinking. Ok with starting with D5 at like 42/hr. Guarded prognosis. 01/02/21: Continue to avoid intubation at all costs. Continue high dose steroids. Given concern for ILD, may even need to consider pulse dose steroids but will discuss on rounds tomorrow. Lasix was given last night and yesterday morning. negative 1700 on yesterday. Please check labs in the am as I would like to give lasix again tonight. 01/01/21: Unfortunately, given her high risk for intubation, patient will not be able to eat. Nutrition has been an issue and we will discuss this on rounds. May need PPN. Continue steroids at current dosing. Will give an additional dose of lasix tonight. 12/31/20: will continue steroids today as same dose and frequency. No changes to lasix therapy. Need to keep patient as calm as possible to allow bipap to work to avoid intubation at all costs. Prognosis still remains guarded. 12/30/20: Continue steroids at 60q6. Continue daily lasix. may need to consider BID dosing to help with more volume removal if renal function will permit. Overall prognosis is very very guarded to poor, especially if the patient ends up on the mechanical ventilator. 12/29/20: Will increase steroids to q6 hour dosing to see if this helps. Prognosis is very very guarded. 12/28/20: Continue steroids and lasix, may need to ask renal about BID dosing for a few days to see if this will help. Prone as tolerated during the day and sleep prone at night. 1. Agree with change in steroids to solumedrol 60q8, will continue for now 2. Agree with daily lasix but goal should be daily net negative state. 3. Prone as tolerated during the day and sleep prone at night 4. Guarded prognosis Subjective Date of service: 01/09/21 Principal diagnosis: COVID-19 Interval history: Worsening overall status. Remains intubated on mechanical ventilator. Developed A. fib with RVR currently on amiodarone drip and also on heparin drip. Objective Vital Signs - 12hr 01/09/21 01/09/21 01/09/21 00:31 00:44 00:45 Temperature Pulse Rate 95 H 96 H 97 H Pulse Rate [ From Monitor] Respiratory 28 H 28 H Rate Blood Pressure 157/70 157/70 147/70 O2 Sat by Pulse 97 99 98 Oximetry 01/09/21 01/09/21 01/09/21 01:00 01:15 01:30 Temperature Pulse Rate 95 H 93 H 92 H Pulse Rate [ From Monitor] Respiratory 28 H 28 H 28 H Rate Blood Pressure 155/59 130/68 141/71 O2 Sat by Pulse 98 Oximetry 01/09/21 01/09/21 01/09/21 01:45 02:00 02:15 Temperature Pulse Rate 91 H 90 89 Pulse Rate [ From Monitor] Respiratory 28 H 28 H 28 H Rate Blood Pressure 136/50 122/67 138/74 O2 Sat by Pulse 97 97 Oximetry 01/09/21 01/09/21 01/09/21 02:31 02:45 03:00 Temperature Pulse Rate 90 93 H 90 Pulse Rate [ From Monitor] Respiratory 28 H 28 H 28 H Rate Blood Pressure 117/66 89/57 97/64 O2 Sat by Pulse 96 Oximetry 01/09/21 01/09/21 01/09/21 03:15 03:30 03:45 Temperature Pulse Rate 89 89 88 Pulse Rate [ From Monitor] Respiratory 28 H 28 H 28 H Rate Blood Pressure 110/67 96/69 96/69 O2 Sat by Pulse 94 Oximetry 01/09/21 01/09/21 01/09/21 03:49 04:00 04:04 Temperature 99.2 F Pulse Rate 90 88 Pulse Rate [ 88 From Monitor] Respiratory 28 H Rate Blood Pressure 103/64 109/58 O2 Sat by Pulse 95 97 Oximetry 01/09/21 01/09/21 01/09/21 04:15 04:31 04:45 Temperature Pulse Rate 89 95 H 92 H Pulse Rate [ From Monitor] Respiratory 28 H 28 H 28 H Rate Blood Pressure 107/56 125/76 123/69 O2 Sat by Pulse 94 95 Oximetry 01/09/21 01/09/21 01/09/21 05:00 05:15 05:31 Temperature Pulse Rate 90 89 89 Pulse Rate [ From Monitor] Respiratory 28 H 28 H 28 H Rate Blood Pressure 134/65 133/60 122/74 O2 Sat by Pulse 97 96 95 Oximetry 01/09/21 01/09/21 01/09/21 05:45 06:00 06:15 Temperature Pulse Rate 88 87 86 Pulse Rate [ From Monitor] Respiratory 28 H 28 H 28 H Rate Blood Pressure 124/66 134/71 127/69 O2 Sat by Pulse 85 96 96 Oximetry 01/09/21 01/09/21 01/09/21 06:30 06:45 07:00 Temperature 99.3 F Pulse Rate 86 88 Pulse Rate [ From Monitor] Respiratory 28 H 28 H Rate Blood Pressure 134/60 125/66 O2 Sat by Pulse 96 97 Oximetry 01/09/21 01/09/21 01/09/21 07:01 07:15 07:31 Temperature Pulse Rate 86 85 100 H Pulse Rate [ From Monitor] Respiratory 28 H 28 H 15 Rate Blood Pressure 122/66 125/66 157/76 O2 Sat by Pulse 96 96 92 Oximetry 01/09/21 01/09/21 01/09/21 07:45 08:00 08:15 Temperature Pulse Rate 90 85 83 Pulse Rate [ From Monitor] Respiratory 28 H 28 H 28 H Rate Blood Pressure 128/82 137/81 130/75 O2 Sat by Pulse 97 Oximetry 01/09/21 01/09/21 01/09/21 08:18 08:30 08:45 Temperature Pulse Rate 84 84 84 Pulse Rate [ From Monitor] Respiratory 28 H 28 H Rate Blood Pressure 130/75 129/80 143/77 O2 Sat by Pulse 99 97 97 Oximetry 01/09/21 01/09/21 01/09/21 09:01 09:15 09:30 Temperature Pulse Rate 83 83 84 Pulse Rate [ From Monitor] Respiratory 28 H 28 H 28 H Rate Blood Pressure 183/109 175/104 193/106 O2 Sat by Pulse 97 96 97 Oximetry 01/09/21 01/09/21 01/09/21 09:45 10:00 10:15 Temperature Pulse Rate 83 82 81 Pulse Rate [ From Monitor] Respiratory 28 H 28 H 28 H Rate Blood Pressure 170/98 185/101 201/67 O2 Sat by Pulse 96 99 97 Oximetry 01/09/21 01/09/21 01/09/21 10:30 10:45 11:00 Temperature Pulse Rate 81 83 83 Pulse Rate [ From Monitor] Respiratory 28 H 28 H 28 H Rate Blood Pressure 176/96 174/96 169/91 O2 Sat by Pulse 96 94 Oximetry 01/09/21 01/09/21 11:07 11:49 Temperature 99.0 F Pulse Rate 84 Pulse Rate [ From Monitor] Respiratory Rate Blood Pressure 169/91 O2 Sat by Pulse 96 Oximetry Constitutional: no acute distress, alert (obese), other (Intubated on mechanical ventilator.) Eyes: non-icteric ENT: oropharynx moist, other (Orally intubated) Neck: supple Effort: normal, mildly labored, other (Patient has severe subcutaneous emphysema of the chest wall. Bilateral chest tubes noted. No air leak on the right. Air leak present on the left chest tube) Ascultation: Bilateral: clear, diminished breath sounds (anteriorly), other (Crunching noises bilaterally from subcutaneous emphysema) Cardiovascular: regular rate and rhythm (no mrg) Gastrointestinal: normoactive bowel sounds, soft, non-tender, non-distended, other (Subcutaneous emphysema noted) Integumentary: normal Extremities: no cyanosis, no edema, pink and warm Neurologic: normal mental status, non-focal exam Psychiatric: mood appropriate, affect normal CBC and BMP: 01/08/21 08:26 01/09/21 04:20 ABG, PT/INR, D-dimer: ABG ABG pH 7.239 (7.320-7.450) L 01/09/21 08:59 POC ABG pCO2 67.2 mmHg (32.0-48.0) H 01/09/21 08:59 POC ABG pO2 88.9 mmHg (83-108) 01/09/21 08:59 POC ABG HCO3 28.1 01/09/21 08:59 ABG O2 Saturation 95.9 (0-100) 01/09/21 08:59 PT/INR, D-dimer PT 14.0 Sec. (12.2-14.9) 01/08/21 11:50 INR 1.09 (0.87-1.13) 01/08/21 11:50 D-Dimer 1259.33 ng/mlDDU (0-234) H 01/03/21 16:00 Abnormal lab findings: Abnormal Labs 12/20/20 12/20/20 12/20/20 19:27 19:27 19:27 WBC 2.9 L RBC Hct MCV MCHC Plt Count 116 L Lymph % (Auto) 41.2 H [place] % (Auto) 13.2 H Lymph # (Auto) Seg Neutrophils % Seg Neuts % (Manual) Lymphocytes % (Manual) Nucleated RBC % Seg Neutrophils # 1.3 L Seg Neutrophils # Man Lymphocytes # (Manual) Monocytes # (Manual) D-Dimer 260.58 H Heparin Anti-Xa Level ABG pH POC ABG pCO2 POC ABG pO2 ABG Hemoglobin ABG Oxyhemoglobin ABG Sodium ABG Potassium ABG Chloride ABG Glucose Carboxyhemoglobin Sodium 135 L Potassium Chloride 96.1 L Carbon Dioxide BUN 23 H Creatinine 1.4 H Glucose 295 H POC Glucose Hemoglobin A1c Calcium 8.3 L Phosphorus Magnesium Ferritin Total Bilirubin AST 125 H ALT 96 H Alkaline Phosphatase 323 H Lactate Dehydrogenase C-Reactive Protein Total Protein 8.7 H Albumin 3.7 L Arterial Blood Glucose Arterial Blood Ionized Calcium Urine Creatinine Coronavirus (PCR) 12/20/20 12/20/20 12/21/20 19:43 19:43 05:50 WBC RBC Hct MCV MCHC Plt Count Lymph % (Auto) [place] % (Auto) Lymph # (Auto) Seg Neutrophils % Seg Neuts % (Manual) Lymphocytes % (Manual) Nucleated RBC % Seg Neutrophils # Seg Neutrophils # Man Lymphocytes # (Manual) Monocytes # (Manual) D-Dimer Heparin Anti-Xa Level ABG pH POC ABG pCO2 POC ABG pO2 ABG Hemoglobin ABG Oxyhemoglobin ABG Sodium ABG Potassium ABG Chloride ABG Glucose Carboxyhemoglobin Sodium Potassium Chloride Carbon Dioxide BUN Creatinine Glucose 297 H POC Glucose Hemoglobin A1c 10.3 H Calcium Phosphorus Magnesium Ferritin 1420.0 H Total Bilirubin AST ALT Alkaline Phosphatase Lactate Dehydrogenase 491 H C-Reactive Protein 5.50 H Total Protein Albumin Arterial Blood Glucose Arterial Blood Ionized Calcium Urine Creatinine Coronavirus (PCR) 12/21/20 12/21/20 12/21/20 05:50 05:50 08:04 WBC 1.6 L* RBC 3.40 L Hct MCV MCHC Plt Count 104 L Lymph % (Auto) [place] % (Auto) Lymph # (Auto) Seg Neutrophils % Seg Neuts % (Manual) 82.0 H Lymphocytes % (Manual) Nucleated RBC % Seg Neutrophils # Seg Neutrophils # Man 1.3 L Lymphocytes # (Manual) 0.3 L Monocytes # (Manual) D-Dimer Heparin Anti-Xa Level ABG pH POC ABG pCO2 POC ABG pO2 ABG Hemoglobin ABG Oxyhemoglobin ABG Sodium ABG Potassium ABG Chloride ABG Glucose Carboxyhemoglobin Sodium 132 L Potassium 5.7 H D Chloride 95.7 L Carbon Dioxide BUN 33 H Creatinine 1.7 H Glucose 500 H POC Glucose 483 H Hemoglobin A1c Calcium 7.7 L Phosphorus Magnesium Ferritin Total Bilirubin AST ALT Alkaline Phosphatase Lactate Dehydrogenase C-Reactive Protein Total Protein Albumin Arterial Blood Glucose Arterial Blood Ionized Calcium Urine Creatinine Coronavirus (PCR) 12/21/20 12/21/20 12/21/20 10:28 12:05 16:54 WBC RBC Hct MCV MCHC Plt Count Lymph % (Auto) [place] % (Auto) Lymph # (Auto) Seg Neutrophils % Seg Neuts % (Manual) Lymphocytes % (Manual) Nucleated RBC % Seg Neutrophils # Seg Neutrophils # Man Lymphocytes # (Manual) Monocytes # (Manual) D-Dimer Heparin Anti-Xa Level ABG pH POC ABG pCO2 POC ABG pO2 ABG Hemoglobin ABG Oxyhemoglobin ABG Sodium ABG Potassium ABG Chloride ABG Glucose Carboxyhemoglobin Sodium Potassium Chloride Carbon Dioxide BUN Creatinine Glucose POC Glucose 482 H 374 H Hemoglobin A1c Calcium Phosphorus Magnesium Ferritin Total Bilirubin AST ALT Alkaline Phosphatase Lactate Dehydrogenase C-Reactive Protein Total Protein Albumin Arterial Blood Glucose Arterial Blood Ionized Calcium Urine Creatinine Coronavirus (PCR) Positive A 12/21/20 12/21/20 12/22/20 18:24 22:12 03:00 WBC RBC Hct MCV MCHC Plt Count Lymph % (Auto) [place] % (Auto) Lymph # (Auto) Seg Neutrophils % Seg Neuts % (Manual) Lymphocytes % (Manual) Nucleated RBC % Seg Neutrophils # Seg Neutrophils # Man Lymphocytes # (Manual) Monocytes # (Manual) D-Dimer Heparin Anti-Xa Level ABG pH POC ABG pCO2 POC ABG pO2 ABG Hemoglobin ABG Oxyhemoglobin ABG Sodium ABG Potassium ABG Chloride ABG Glucose Carboxyhemoglobin Sodium 131 L Potassium Chloride 95.2 L Carbon Dioxide BUN 37 H Creatinine 1.4 H Glucose 417 H POC Glucose 358 H Hemoglobin A1c Calcium 7.5 L Phosphorus Magnesium Ferritin Total Bilirubin AST 82 H ALT 69 H Alkaline Phosphatase 262 H Lactate Dehydrogenase C-Reactive Protein Total Protein Albumin 3.0 L Arterial Blood Glucose Arterial Blood Ionized Calcium Urine Creatinine 117.9 H Coronavirus (PCR) 12/22/20 12/22/20 12/22/20 05:29 08:19 11:18 WBC RBC Hct MCV MCHC Plt Count Lymph % (Auto) [place] % (Auto) Lymph # (Auto) Seg Neutrophils % Seg Neuts % (Manual) Lymphocytes % (Manual) Nucleated RBC % Seg Neutrophils # Seg Neutrophils # Man Lymphocytes # (Manual) Monocytes # (Manual) D-Dimer Heparin Anti-Xa Level ABG pH POC ABG pCO2 POC ABG pO2 ABG Hemoglobin ABG Oxyhemoglobin ABG Sodium ABG Potassium ABG Chloride ABG Glucose Carboxyhemoglobin Sodium Potassium Chloride Carbon Dioxide BUN 34 H Creatinine 1.3 H Glucose 169 H POC Glucose 136 H 132 H Hemoglobin A1c Calcium 7.5 L Phosphorus Magnesium Ferritin Total Bilirubin AST 74 H ALT 60 H Alkaline Phosphatase 249 H Lactate Dehydrogenase C-Reactive Protein Total Protein Albumin 3.1 L Arterial Blood Glucose Arterial Blood Ionized Calcium Urine Creatinine Coronavirus (PCR) 12/22/20 12/22/20 12/22/20 14:18 14:18 16:36 WBC RBC Hct MCV MCHC Plt Count Lymph % (Auto) [place] % (Auto) Lymph # (Auto) Seg Neutrophils % Seg Neuts % (Manual) Lymphocytes % (Manual) Nucleated RBC % Seg Neutrophils # Seg Neutrophils # Man Lymphocytes # (Manual) Monocytes # (Manual) D-Dimer Heparin Anti-Xa Level ABG pH POC ABG pCO2 POC ABG pO2 ABG Hemoglobin ABG Oxyhemoglobin ABG Sodium ABG Potassium ABG Chloride ABG Glucose Carboxyhemoglobin Sodium Potassium Chloride Carbon Dioxide BUN Creatinine Glucose POC Glucose 440 H Hemoglobin A1c Calcium Phosphorus Magnesium Ferritin 1295.0 H Total Bilirubin AST ALT Alkaline Phosphatase Lactate Dehydrogenase 620 H C-Reactive Protein 2.70 H Total Protein Albumin Arterial Blood Glucose Arterial Blood Ionized Calcium Urine Creatinine Coronavirus (PCR) 12/22/20 12/23/20 12/23/20 21:07 08:09 11:30 WBC RBC Hct MCV MCHC Plt Count Lymph % (Auto) [place] % (Auto) Lymph # (Auto) Seg Neutrophils % Seg Neuts % (Manual) Lymphocytes % (Manual) Nucleated RBC % Seg Neutrophils # Seg Neutrophils # Man Lymphocytes # (Manual) Monocytes # (Manual) D-Dimer Heparin Anti-Xa Level ABG pH POC ABG pCO2 POC ABG pO2 ABG Hemoglobin ABG Oxyhemoglobin ABG Sodium ABG Potassium ABG Chloride ABG Glucose Carboxyhemoglobin Sodium Potassium Chloride Carbon Dioxide BUN Creatinine Glucose POC Glucose 493 H 156 H 185 H Hemoglobin A1c Calcium Phosphorus Magnesium Ferritin Total Bilirubin AST ALT Alkaline Phosphatase Lactate Dehydrogenase C-Reactive Protein Total Protein Albumin Arterial Blood Glucose Arterial Blood Ionized Calcium Urine Creatinine Coronavirus (PCR) 12/23/20 12/23/20 12/23/20 14:09 14:09 16:26 WBC 1.8 L* RBC 3.45 L Hct MCV MCHC Plt Count 114 L Lymph % (Auto) [place] % (Auto) Lymph # (Auto) Seg Neutrophils % Seg Neuts % (Manual) 87.0 H Lymphocytes % (Manual) 3.0 L Nucleated RBC % 1.0 H Seg Neutrophils # Seg Neutrophils # Man 1.6 L Lymphocytes # (Manual) 0.1 L Monocytes # (Manual) D-Dimer Heparin Anti-Xa Level ABG pH POC ABG pCO2 POC ABG pO2 ABG Hemoglobin ABG Oxyhemoglobin ABG Sodium ABG Potassium ABG Chloride ABG Glucose Carboxyhemoglobin Sodium Potassium Chloride Carbon Dioxide BUN 19 H Creatinine Glucose 292 H POC Glucose 351 H Hemoglobin A1c Calcium 7.4 L Phosphorus Magnesium Ferritin Total Bilirubin AST 71 H ALT Alkaline Phosphatase 264 H Lactate Dehydrogenase C-Reactive Protein Total Protein Albumin 3.0 L Arterial Blood Glucose Arterial Blood Ionized Calcium Urine Creatinine Coronavirus (PCR) 12/23/20 12/24/20 12/24/20 21:11 08:21 11:58 WBC RBC Hct MCV MCHC Plt Count Lymph % (Auto) [place] % (Auto) Lymph # (Auto) Seg Neutrophils % Seg Neuts % (Manual) Lymphocytes % (Manual) Nucleated RBC % Seg Neutrophils # Seg Neutrophils # Man Lymphocytes # (Manual) Monocytes # (Manual) D-Dimer Heparin Anti-Xa Level ABG pH POC ABG pCO2 POC ABG pO2 ABG Hemoglobin ABG Oxyhemoglobin ABG Sodium ABG Potassium ABG Chloride ABG Glucose Carboxyhemoglobin Sodium Potassium Chloride Carbon Dioxide BUN Creatinine Glucose POC Glucose 288 H 286 H 277 H Hemoglobin A1c Calcium Phosphorus Magnesium Ferritin Total Bilirubin AST ALT Alkaline Phosphatase Lactate Dehydrogenase C-Reactive Protein Total Protein Albumin Arterial Blood Glucose Arterial Blood Ionized Calcium Urine Creatinine Coronavirus (PCR) 12/24/20 12/24/20 12/24/20 12:29 12:29 16:05 WBC 2.5 L RBC 3.49 L Hct MCV MCHC 35 H Plt Count 132 L Lymph % (Auto) [place] % (Auto) 7.6 H Lymph # (Auto) 0.4 L Seg Neutrophils % 74.7 H Seg Neuts % (Manual) Lymphocytes % (Manual) Nucleated RBC % Seg Neutrophils # Seg Neutrophils # Man Lymphocytes # (Manual) Monocytes # (Manual) D-Dimer Heparin Anti-Xa Level ABG pH POC ABG pCO2 POC ABG pO2 ABG Hemoglobin ABG Oxyhemoglobin ABG Sodium ABG Potassium ABG Chloride ABG Glucose Carboxyhemoglobin Sodium Potassium Chloride Carbon Dioxide BUN Creatinine Glucose 256 H POC Glucose 282 H Hemoglobin A1c Calcium 7.8 L Phosphorus Magnesium Ferritin Total Bilirubin AST 50 H ALT Alkaline Phosphatase 262 H Lactate Dehydrogenase C-Reactive Protein Total Protein Albumin 2.8 L Arterial Blood Glucose Arterial Blood Ionized Calcium Urine Creatinine Coronavirus (PCR) 12/24/20 12/25/20 12/25/20 22:01 07:58 11:38 WBC RBC Hct MCV MCHC Plt Count Lymph % (Auto) [place] % (Auto) Lymph # (Auto) Seg Neutrophils % Seg Neuts % (Manual) Lymphocytes % (Manual) Nucleated RBC % Seg Neutrophils # Seg Neutrophils # Man Lymphocytes # (Manual) Monocytes # (Manual) D-Dimer Heparin Anti-Xa Level ABG pH POC ABG pCO2 POC ABG pO2 ABG Hemoglobin ABG Oxyhemoglobin ABG Sodium ABG Potassium ABG Chloride ABG Glucose Carboxyhemoglobin Sodium Potassium Chloride Carbon Dioxide BUN Creatinine Glucose POC Glucose 366 H 278 H 325 H Hemoglobin A1c Calcium Phosphorus Magnesium Ferritin Total Bilirubin AST ALT Alkaline Phosphatase Lactate Dehydrogenase C-Reactive Protein Total Protein Albumin Arterial Blood Glucose Arterial Blood Ionized Calcium Urine Creatinine Coronavirus (PCR) 12/25/20 12/25/20 12/26/20 15:47 21:31 04:29 WBC RBC Hct MCV MCHC Plt Count Lymph % (Auto) [place] % (Auto) Lymph # (Auto) Seg Neutrophils % Seg Neuts % (Manual) Lymphocytes % (Manual) Nucleated RBC % Seg Neutrophils # Seg Neutrophils # Man Lymphocytes # (Manual) Monocytes # (Manual) D-Dimer Heparin Anti-Xa Level ABG pH POC ABG pCO2 POC ABG pO2 ABG Hemoglobin ABG Oxyhemoglobin ABG Sodium ABG Potassium ABG Chloride ABG Glucose Carboxyhemoglobin Sodium Potassium Chloride Carbon Dioxide BUN 22 H Creatinine Glucose 327 H POC Glucose 316 H 339 H Hemoglobin A1c Calcium 7.9 L Phosphorus Magnesium Ferritin Total Bilirubin AST ALT Alkaline Phosphatase Lactate Dehydrogenase C-Reactive Protein Total Protein Albumin Arterial Blood Glucose Arterial Blood Ionized Calcium Urine Creatinine Coronavirus (PCR) 12/26/20 12/26/20 12/26/20 07:42 11:08 11:08 WBC RBC Hct MCV MCHC Plt Count Lymph % (Auto) [place] % (Auto) Lymph # (Auto) Seg Neutrophils % Seg Neuts % (Manual) Lymphocytes % (Manual) Nucleated RBC % Seg Neutrophils # Seg Neutrophils # Man Lymphocytes # (Manual) Monocytes # (Manual) D-Dimer 1954.54 H Heparin Anti-Xa Level ABG pH POC ABG pCO2 POC ABG pO2 ABG Hemoglobin ABG Oxyhemoglobin ABG Sodium ABG Potassium ABG Chloride ABG Glucose Carboxyhemoglobin Sodium Potassium Chloride Carbon Dioxide BUN Creatinine Glucose POC Glucose 353 H Hemoglobin A1c Calcium Phosphorus Magnesium Ferritin 932.1 H Total Bilirubin AST ALT Alkaline Phosphatase Lactate Dehydrogenase C-Reactive Protein Total Protein Albumin Arterial Blood Glucose Arterial Blood Ionized Calcium Urine Creatinine Coronavirus (PCR) 12/26/20 12/26/20 12/26/20 11:08 11:57 16:40 WBC RBC Hct MCV MCHC Plt Count Lymph % (Auto) [place] % (Auto) Lymph # (Auto) Seg Neutrophils % Seg Neuts % (Manual) Lymphocytes % (Manual) Nucleated RBC % Seg Neutrophils # Seg Neutrophils # Man Lymphocytes # (Manual) Monocytes # (Manual) D-Dimer Heparin Anti-Xa Level ABG pH POC ABG pCO2 POC ABG pO2 ABG Hemoglobin ABG Oxyhemoglobin ABG Sodium ABG Potassium ABG Chloride ABG Glucose Carboxyhemoglobin Sodium Potassium Chloride Carbon Dioxide BUN Creatinine Glucose POC Glucose 318 H 352 H Hemoglobin A1c Calcium Phosphorus Magnesium Ferritin Total Bilirubin AST ALT Alkaline Phosphatase Lactate Dehydrogenase 698 H C-Reactive Protein 3.70 H Total Protein Albumin Arterial Blood Glucose Arterial Blood Ionized Calcium Urine Creatinine Coronavirus (PCR) 12/26/20 12/27/20 12/27/20 21:29 04:25 04:25 WBC RBC Hct MCV MCHC Plt Count Lymph % (Auto) 6.4 L [place] % (Auto) 7.5 H Lymph # (Auto) 0.5 L Seg Neutrophils % 85.9 H Seg Neuts % (Manual) Lymphocytes % (Manual) Nucleated RBC % Seg Neutrophils # Seg Neutrophils # Man Lymphocytes # (Manual) Monocytes # (Manual) D-Dimer Heparin Anti-Xa Level ABG pH POC ABG pCO2 POC ABG pO2 ABG Hemoglobin ABG Oxyhemoglobin ABG Sodium ABG Potassium ABG Chloride ABG Glucose Carboxyhemoglobin Sodium Potassium 5.4 H D Chloride Carbon Dioxide BUN 30 H Creatinine Glucose 273 H POC Glucose 376 H Hemoglobin A1c Calcium 8.1 L Phosphorus Magnesium Ferritin Total Bilirubin AST ALT Alkaline Phosphatase 242 H Lactate Dehydrogenase C-Reactive Protein Total Protein Albumin 2.7 L Arterial Blood Glucose Arterial Blood Ionized Calcium Urine Creatinine Coronavirus (PCR) 12/27/20 12/27/20 12/27/20 08:05 11:39 17:28 WBC RBC Hct MCV MCHC Plt Count Lymph % (Auto) [place] % (Auto) Lymph # (Auto) Seg Neutrophils % Seg Neuts % (Manual) Lymphocytes % (Manual) Nucleated RBC % Seg Neutrophils # Seg Neutrophils # Man Lymphocytes # (Manual) Monocytes # (Manual) D-Dimer Heparin Anti-Xa Level ABG pH POC ABG pCO2 POC ABG pO2 ABG Hemoglobin ABG Oxyhemoglobin ABG Sodium ABG Potassium ABG Chloride ABG Glucose Carboxyhemoglobin Sodium Potassium Chloride Carbon Dioxide BUN Creatinine Glucose POC Glucose 287 H 359 H 490 H Hemoglobin A1c Calcium Phosphorus Magnesium Ferritin Total Bilirubin AST ALT Alkaline Phosphatase Lactate Dehydrogenase C-Reactive Protein Total Protein Albumin Arterial Blood Glucose Arterial Blood Ionized Calcium Urine Creatinine Coronavirus (PCR) 12/27/20 12/27/20 12/28/20 21:43 21:53 04:41 WBC RBC Hct MCV MCHC Plt Count Lymph % (Auto) [place] % (Auto) Lymph # (Auto) Seg Neutrophils % Seg Neuts % (Manual) Lymphocytes % (Manual) Nucleated RBC % Seg Neutrophils # Seg Neutrophils # Man Lymphocytes # (Manual) Monocytes # (Manual) D-Dimer Heparin Anti-Xa Level ABG pH POC ABG pCO2 POC ABG pO2 ABG Hemoglobin ABG Oxyhemoglobin ABG Sodium ABG Potassium ABG Chloride ABG Glucose Carboxyhemoglobin Sodium Potassium Chloride Carbon Dioxide 31 H BUN 35 H Creatinine Glucose 328 H POC Glucose 503 H 438 H Hemoglobin A1c Calcium Phosphorus Magnesium Ferritin Total Bilirubin AST ALT Alkaline Phosphatase Lactate Dehydrogenase C-Reactive Protein Total Protein Albumin Arterial Blood Glucose Arterial Blood Ionized Calcium Urine Creatinine Coronavirus (PCR) 12/28/20 12/28/20 12/28/20 07:58 11:40 15:43 WBC RBC Hct MCV MCHC Plt Count Lymph % (Auto) [place] % (Auto) Lymph # (Auto) Seg Neutrophils % Seg Neuts % (Manual) Lymphocytes % (Manual) Nucleated RBC % Seg Neutrophils # Seg Neutrophils # Man Lymphocytes # (Manual) Monocytes # (Manual) D-Dimer 4626.15 H Heparin Anti-Xa Level ABG pH POC ABG pCO2 POC ABG pO2 ABG Hemoglobin ABG Oxyhemoglobin ABG Sodium ABG Potassium ABG Chloride ABG Glucose Carboxyhemoglobin Sodium Potassium Chloride Carbon Dioxide BUN Creatinine Glucose POC Glucose 321 H 455 H Hemoglobin A1c Calcium Phosphorus Magnesium Ferritin Total Bilirubin AST ALT Alkaline Phosphatase Lactate Dehydrogenase C-Reactive Protein Total Protein Albumin Arterial Blood Glucose Arterial Blood Ionized Calcium Urine Creatinine Coronavirus (PCR) 12/28/20 12/28/20 12/28/20 15:43 15:43 17:10 WBC RBC Hct MCV MCHC Plt Count Lymph % (Auto) [place] % (Auto) Lymph # (Auto) Seg Neutrophils % Seg Neuts % (Manual) Lymphocytes % (Manual) Nucleated RBC % Seg Neutrophils # Seg Neutrophils # Man Lymphocytes # (Manual) Monocytes # (Manual) D-Dimer Heparin Anti-Xa Level ABG pH POC ABG pCO2 POC ABG pO2 ABG Hemoglobin ABG Oxyhemoglobin ABG Sodium ABG Potassium ABG Chloride ABG Glucose Carboxyhemoglobin Sodium Potassium Chloride Carbon Dioxide BUN Creatinine Glucose POC Glucose 291 H Hemoglobin A1c Calcium Phosphorus Magnesium Ferritin 1030.0 H Total Bilirubin AST ALT Alkaline Phosphatase Lactate Dehydrogenase 838 H C-Reactive Protein Total Protein Albumin Arterial Blood Glucose Arterial Blood Ionized Calcium Urine Creatinine Coronavirus (PCR) 12/28/20 12/29/20 12/29/20 21:42 05:12 08:25 WBC RBC Hct MCV MCHC Plt Count Lymph % (Auto) [place] % (Auto) Lymph # (Auto) Seg Neutrophils % Seg Neuts % (Manual) Lymphocytes % (Manual) Nucleated RBC % Seg Neutrophils # Seg Neutrophils # Man Lymphocytes # (Manual) Monocytes # (Manual) D-Dimer Heparin Anti-Xa Level ABG pH POC ABG pCO2 POC ABG pO2 ABG Hemoglobin ABG Oxyhemoglobin ABG Sodium ABG Potassium ABG Chloride ABG Glucose Carboxyhemoglobin Sodium 146 H Potassium Chloride Carbon Dioxide 32 H BUN 34 H Creatinine Glucose 126 H POC Glucose 240 H 176 H Hemoglobin A1c Calcium Phosphorus Magnesium Ferritin Total Bilirubin AST ALT Alkaline Phosphatase Lactate Dehydrogenase C-Reactive Protein Total Protein Albumin Arterial Blood Glucose Arterial Blood Ionized Calcium Urine Creatinine Coronavirus (PCR) 12/29/20 12/29/20 12/29/20 11:24 16:49 21:39 WBC RBC Hct MCV MCHC Plt Count Lymph % (Auto) [place] % (Auto) Lymph # (Auto) Seg Neutrophils % Seg Neuts % (Manual) Lymphocytes % (Manual) Nucleated RBC % Seg Neutrophils # Seg Neutrophils # Man Lymphocytes # (Manual) Monocytes # (Manual) D-Dimer Heparin Anti-Xa Level ABG pH POC ABG pCO2 POC ABG pO2 ABG Hemoglobin ABG Oxyhemoglobin ABG Sodium ABG Potassium ABG Chloride ABG Glucose Carboxyhemoglobin Sodium Potassium Chloride Carbon Dioxide BUN Creatinine Glucose POC Glucose 209 H 226 H 169 H Hemoglobin A1c Calcium Phosphorus Magnesium Ferritin Total Bilirubin AST ALT Alkaline Phosphatase Lactate Dehydrogenase C-Reactive Protein Total Protein Albumin Arterial Blood Glucose Arterial Blood Ionized Calcium Urine Creatinine Coronavirus (PCR) 12/30/20 12/30/20 12/30/20 07:34 12:17 16:29 WBC RBC Hct MCV MCHC Plt Count Lymph % (Auto) [place] % (Auto) Lymph # (Auto) Seg Neutrophils % Seg Neuts % (Manual) Lymphocytes % (Manual) Nucleated RBC % Seg Neutrophils # Seg Neutrophils # Man Lymphocytes # (Manual) Monocytes # (Manual) D-Dimer Heparin Anti-Xa Level ABG pH POC ABG pCO2 POC ABG pO2 ABG Hemoglobin ABG Oxyhemoglobin ABG Sodium ABG Potassium ABG Chloride ABG Glucose Carboxyhemoglobin Sodium Potassium Chloride Carbon Dioxide BUN Creatinine Glucose POC Glucose 206 H 261 H 229 H Hemoglobin A1c Calcium Phosphorus Magnesium Ferritin Total Bilirubin AST ALT Alkaline Phosphatase Lactate Dehydrogenase C-Reactive Protein Total Protein Albumin Arterial Blood Glucose Arterial Blood Ionized Calcium Urine Creatinine Coronavirus (PCR) 12/30/20 12/30/20 12/31/20 18:03 23:13 08:43 WBC RBC Hct MCV MCHC Plt Count Lymph % (Auto) [place] % (Auto) Lymph # (Auto) Seg Neutrophils % Seg Neuts % (Manual) Lymphocytes % (Manual) Nucleated RBC % Seg Neutrophils # Seg Neutrophils # Man Lymphocytes # (Manual) Monocytes # (Manual) D-Dimer Heparin Anti-Xa Level ABG pH 7.454 H POC ABG pCO2 49.7 H POC ABG pO2 59.0 L ABG Hemoglobin ABG Oxyhemoglobin 88.6 L ABG Sodium 146.4 H ABG Potassium ABG Chloride ABG Glucose 252 H Carboxyhemoglobin Sodium Potassium Chloride Carbon Dioxide BUN Creatinine Glucose POC Glucose 188 H 191 H Hemoglobin A1c Calcium Phosphorus Magnesium Ferritin Total Bilirubin AST ALT Alkaline Phosphatase Lactate Dehydrogenase C-Reactive Protein Total Protein Albumin Arterial Blood Glucose 252 H Arterial Blood Ionized Calcium 4.5 L Urine Creatinine Coronavirus (PCR) 12/31/20 12/31/20 12/31/20 11:57 16:57 21:37 WBC RBC Hct MCV MCHC Plt Count Lymph % (Auto) [place] % (Auto) Lymph # (Auto) Seg Neutrophils % Seg Neuts % (Manual) Lymphocytes % (Manual) Nucleated RBC % Seg Neutrophils # Seg Neutrophils # Man Lymphocytes # (Manual) Monocytes # (Manual) D-Dimer Heparin Anti-Xa Level ABG pH POC ABG pCO2 POC ABG pO2 ABG Hemoglobin ABG Oxyhemoglobin ABG Sodium ABG Potassium ABG Chloride ABG Glucose Carboxyhemoglobin Sodium Potassium Chloride Carbon Dioxide BUN Creatinine Glucose POC Glucose 185 H 171 H 136 H Hemoglobin A1c Calcium Phosphorus Magnesium Ferritin Total Bilirubin AST ALT Alkaline Phosphatase Lactate Dehydrogenase C-Reactive Protein Total Protein Albumin Arterial Blood Glucose Arterial Blood Ionized Calcium Urine Creatinine Coronavirus (PCR) 01/01/21 01/01/21 01/01/21 08:03 11:55 17:06 WBC RBC Hct MCV MCHC Plt Count Lymph % (Auto) [place] % (Auto) Lymph # (Auto) Seg Neutrophils % Seg Neuts % (Manual) Lymphocytes % (Manual) Nucleated RBC % Seg Neutrophils # Seg Neutrophils # Man Lymphocytes # (Manual) Monocytes # (Manual) D-Dimer Heparin Anti-Xa Level ABG pH POC ABG pCO2 POC ABG pO2 ABG Hemoglobin ABG Oxyhemoglobin ABG Sodium ABG Potassium ABG Chloride ABG Glucose Carboxyhemoglobin Sodium Potassium Chloride Carbon Dioxide BUN Creatinine Glucose POC Glucose 160 H 155 H 193 H Hemoglobin A1c Calcium Phosphorus Magnesium Ferritin Total Bilirubin AST ALT Alkaline Phosphatase Lactate Dehydrogenase C-Reactive Protein Total Protein Albumin Arterial Blood Glucose Arterial Blood Ionized Calcium Urine Creatinine Coronavirus (PCR) 01/01/21 01/02/21 01/02/21 22:20 07:22 11:54 WBC RBC Hct MCV MCHC Plt Count Lymph % (Auto) [place] % (Auto) Lymph # (Auto) Seg Neutrophils % Seg Neuts % (Manual) Lymphocytes % (Manual) Nucleated RBC % Seg Neutrophils # Seg Neutrophils # Man Lymphocytes # (Manual) Monocytes # (Manual) D-Dimer Heparin Anti-Xa Level ABG pH POC ABG pCO2 POC ABG pO2 ABG Hemoglobin ABG Oxyhemoglobin ABG Sodium ABG Potassium ABG Chloride ABG Glucose Carboxyhemoglobin Sodium Potassium Chloride Carbon Dioxide BUN Creatinine Glucose POC Glucose 316 H 274 H 307 H Hemoglobin A1c Calcium Phosphorus Magnesium Ferritin Total Bilirubin AST ALT Alkaline Phosphatase Lactate Dehydrogenase C-Reactive Protein Total Protein Albumin Arterial Blood Glucose Arterial Blood Ionized Calcium Urine Creatinine Coronavirus (PCR) 01/02/21 01/02/21 01/03/21 16:00 21:20 06:48 WBC RBC Hct MCV MCHC Plt Count Lymph % (Auto) [place] % (Auto) Lymph # (Auto) Seg Neutrophils % Seg Neuts % (Manual) Lymphocytes % (Manual) Nucleated RBC % Seg Neutrophils # Seg Neutrophils # Man Lymphocytes # (Manual) Monocytes # (Manual) D-Dimer Heparin Anti-Xa Level ABG pH POC ABG pCO2 POC ABG pO2 ABG Hemoglobin ABG Oxyhemoglobin ABG Sodium ABG Potassium ABG Chloride ABG Glucose Carboxyhemoglobin Sodium 152 H Potassium Chloride 108.8 H Carbon Dioxide 32 H BUN 64 H Creatinine 1.3 H Glucose 180 H POC Glucose 303 H 263 H Hemoglobin A1c Calcium Phosphorus Magnesium Ferritin Total Bilirubin AST ALT Alkaline Phosphatase Lactate Dehydrogenase C-Reactive Protein Total Protein Albumin Arterial Blood Glucose Arterial Blood Ionized Calcium Urine Creatinine Coronavirus (PCR) 01/03/21 01/03/21 01/03/21 08:28 11:44 13:59 WBC RBC Hct MCV MCHC Plt Count Lymph % (Auto) [place] % (Auto) Lymph # (Auto) Seg Neutrophils % Seg Neuts % (Manual) Lymphocytes % (Manual) Nucleated RBC % Seg Neutrophils # Seg Neutrophils # Man Lymphocytes # (Manual) Monocytes # (Manual) D-Dimer Heparin Anti-Xa Level ABG pH POC ABG pCO2 POC ABG pO2 ABG Hemoglobin ABG Oxyhemoglobin ABG Sodium ABG Potassium ABG Chloride ABG Glucose Carboxyhemoglobin Sodium Potassium Chloride Carbon Dioxide BUN Creatinine Glucose POC Glucose 203 H 339 H 362 H Hemoglobin A1c Calcium Phosphorus Magnesium Ferritin Total Bilirubin AST ALT Alkaline Phosphatase Lactate Dehydrogenase C-Reactive Protein Total Protein Albumin Arterial Blood Glucose Arterial Blood Ionized Calcium Urine Creatinine Coronavirus (PCR) 01/03/21 01/03/21 01/03/21 16:00 16:00 16:00 WBC RBC Hct MCV MCHC Plt Count Lymph % (Auto) [place] % (Auto) Lymph # (Auto) Seg Neutrophils % Seg Neuts % (Manual) Lymphocytes % (Manual) Nucleated RBC % Seg Neutrophils # Seg Neutrophils # Man Lymphocytes # (Manual) Monocytes # (Manual) D-Dimer 1259.33 H Heparin Anti-Xa Level ABG pH POC ABG pCO2 POC ABG pO2 ABG Hemoglobin ABG Oxyhemoglobin ABG Sodium ABG Potassium ABG Chloride ABG Glucose Carboxyhemoglobin Sodium Potassium Chloride Carbon Dioxide BUN Creatinine Glucose POC Glucose Hemoglobin A1c Calcium Phosphorus Magnesium Ferritin 1526.0 H Total Bilirubin AST ALT Alkaline Phosphatase Lactate Dehydrogenase 815 H C-Reactive Protein Total Protein Albumin Arterial Blood Glucose Arterial Blood Ionized Calcium Urine Creatinine Coronavirus (PCR) 01/03/21 01/03/21 01/04/21 18:13 21:23 01:46 WBC RBC Hct MCV MCHC Plt Count Lymph % (Auto) [place] % (Auto) Lymph # (Auto) Seg Neutrophils % Seg Neuts % (Manual) Lymphocytes % (Manual) Nucleated RBC % Seg Neutrophils # Seg Neutrophils # Man Lymphocytes # (Manual) Monocytes # (Manual) D-Dimer Heparin Anti-Xa Level ABG pH POC ABG pCO2 POC ABG pO2 ABG Hemoglobin ABG Oxyhemoglobin ABG Sodium ABG Potassium ABG Chloride ABG Glucose Carboxyhemoglobin Sodium Potassium Chloride Carbon Dioxide BUN Creatinine Glucose POC Glucose 349 H 312 H 264 H Hemoglobin A1c Calcium Phosphorus Magnesium Ferritin Total Bilirubin AST ALT Alkaline Phosphatase Lactate Dehydrogenase C-Reactive Protein Total Protein Albumin Arterial Blood Glucose Arterial Blood Ionized Calcium Urine Creatinine Coronavirus (PCR) 01/04/21 01/04/21 01/04/21 05:12 05:35 07:36 WBC RBC Hct MCV MCHC Plt Count Lymph % (Auto) [place] % (Auto) Lymph # (Auto) Seg Neutrophils % Seg Neuts % (Manual) Lymphocytes % (Manual) Nucleated RBC % Seg Neutrophils # Seg Neutrophils # Man Lymphocytes # (Manual) Monocytes # (Manual) D-Dimer Heparin Anti-Xa Level ABG pH POC ABG pCO2 POC ABG pO2 ABG Hemoglobin ABG Oxyhemoglobin ABG Sodium ABG Potassium ABG Chloride ABG Glucose Carboxyhemoglobin Sodium 147 H Potassium Chloride Carbon Dioxide 34 H BUN 59 H Creatinine Glucose 208 H POC Glucose 193 H 197 H Hemoglobin A1c Calcium Phosphorus Magnesium 2.60 H Ferritin Total Bilirubin AST ALT Alkaline Phosphatase Lactate Dehydrogenase C-Reactive Protein Total Protein Albumin Arterial Blood Glucose Arterial Blood Ionized Calcium Urine Creatinine Coronavirus (PCR) 01/04/21 01/04/21 01/04/21 11:00 14:10 18:06 WBC RBC Hct MCV MCHC Plt Count Lymph % (Auto) [place] % (Auto) Lymph # (Auto) Seg Neutrophils % Seg Neuts % (Manual) Lymphocytes % (Manual) Nucleated RBC % Seg Neutrophils # Seg Neutrophils # Man Lymphocytes # (Manual) Monocytes # (Manual) D-Dimer Heparin Anti-Xa Level ABG pH POC ABG pCO2 POC ABG pO2 ABG Hemoglobin ABG Oxyhemoglobin ABG Sodium ABG Potassium ABG Chloride ABG Glucose Carboxyhemoglobin Sodium Potassium Chloride Carbon Dioxide BUN Creatinine Glucose POC Glucose 153 H 173 H 194 H Hemoglobin A1c Calcium Phosphorus Magnesium Ferritin Total Bilirubin AST ALT Alkaline Phosphatase Lactate Dehydrogenase C-Reactive Protein Total Protein Albumin Arterial Blood Glucose Arterial Blood Ionized Calcium Urine Creatinine Coronavirus (PCR) 01/04/21 01/05/21 01/05/21 21:36 01:38 04:09 WBC RBC Hct MCV MCHC Plt Count Lymph % (Auto) [place] % (Auto) Lymph # (Auto) Seg Neutrophils % Seg Neuts % (Manual) Lymphocytes % (Manual) Nucleated RBC % Seg Neutrophils # Seg Neutrophils # Man Lymphocytes # (Manual) Monocytes # (Manual) D-Dimer Heparin Anti-Xa Level ABG pH POC ABG pCO2 POC ABG pO2 ABG Hemoglobin ABG Oxyhemoglobin ABG Sodium ABG Potassium ABG Chloride ABG Glucose Carboxyhemoglobin Sodium 146 H Potassium Chloride Carbon Dioxide BUN 55 H Creatinine Glucose 241 H POC Glucose 232 H 232 H Hemoglobin A1c Calcium 8.3 L Phosphorus Magnesium 2.70 H Ferritin Total Bilirubin AST ALT 58 H Alkaline Phosphatase 177 H Lactate Dehydrogenase C-Reactive Protein Total Protein Albumin 2.9 L Arterial Blood Glucose Arterial Blood Ionized Calcium Urine Creatinine Coronavirus (PCR) 01/05/21 01/05/21 01/05/21 05:56 08:22 11:46 WBC RBC Hct MCV MCHC Plt Count Lymph % (Auto) [place] % (Auto) Lymph # (Auto) Seg Neutrophils % Seg Neuts % (Manual) Lymphocytes % (Manual) Nucleated RBC % Seg Neutrophils # Seg Neutrophils # Man Lymphocytes # (Manual) Monocytes # (Manual) D-Dimer Heparin Anti-Xa Level ABG pH POC ABG pCO2 POC ABG pO2 ABG Hemoglobin ABG Oxyhemoglobin ABG Sodium ABG Potassium ABG Chloride ABG Glucose Carboxyhemoglobin Sodium Potassium Chloride Carbon Dioxide BUN Creatinine Glucose POC Glucose 264 H 213 H 144 H Hemoglobin A1c Calcium Phosphorus Magnesium Ferritin Total Bilirubin AST ALT Alkaline Phosphatase Lactate Dehydrogenase C-Reactive Protein Total Protein Albumin Arterial Blood Glucose Arterial Blood Ionized Calcium Urine Creatinine Coronavirus (PCR) 01/05/21 01/05/21 01/05/21 14:41 15:38 18:41 WBC RBC Hct MCV MCHC Plt Count Lymph % (Auto) [place] % (Auto) Lymph # (Auto) Seg Neutrophils % Seg Neuts % (Manual) Lymphocytes % (Manual) Nucleated RBC % Seg Neutrophils # Seg Neutrophils # Man Lymphocytes # (Manual) Monocytes # (Manual) D-Dimer Heparin Anti-Xa Level ABG pH 7.263 L 7.3 L POC ABG pCO2 50.3 H 60.0 H POC ABG pO2 66.6 L 79.6 L ABG Hemoglobin ABG Oxyhemoglobin 87.9 L 92.2 L ABG Sodium 145.8 H ABG Potassium ABG Chloride ABG Glucose 306 H 353 H Carboxyhemoglobin Sodium Potassium Chloride Carbon Dioxide BUN Creatinine Glucose POC Glucose 307 H Hemoglobin A1c Calcium Phosphorus Magnesium Ferritin Total Bilirubin AST ALT Alkaline Phosphatase Lactate Dehydrogenase C-Reactive Protein Total Protein Albumin Arterial Blood Glucose 306 H 353 H Arterial Blood Ionized Calcium 4.4 L Urine Creatinine Coronavirus (PCR) 01/05/21 01/06/21 01/06/21 21:16 01:31 04:45 WBC RBC Hct MCV MCHC Plt Count Lymph % (Auto) [place] % (Auto) Lymph # (Auto) Seg Neutrophils % Seg Neuts % (Manual) Lymphocytes % (Manual) Nucleated RBC % Seg Neutrophils # Seg Neutrophils # Man Lymphocytes # (Manual) Monocytes # (Manual) D-Dimer Heparin Anti-Xa Level ABG pH 7.237 L POC ABG pCO2 68.9 H POC ABG pO2 ABG Hemoglobin ABG Oxyhemoglobin 93.2 L ABG Sodium 145.4 H ABG Potassium ABG Chloride ABG Glucose 152 H Carboxyhemoglobin 1.6 H Sodium Potassium Chloride Carbon Dioxide BUN Creatinine Glucose POC Glucose 256 H 195 H Hemoglobin A1c Calcium Phosphorus Magnesium Ferritin Total Bilirubin AST ALT Alkaline Phosphatase Lactate Dehydrogenase C-Reactive Protein Total Protein Albumin Arterial Blood Glucose 152 H Arterial Blood Ionized Calcium Urine Creatinine Coronavirus (PCR) 01/06/21 01/06/21 01/06/21 05:26 14:49 14:49 WBC 34.5 H RBC Hct 43.8 H MCV 99 H MCHC Plt Count Lymph % (Auto) [place] % (Auto) Lymph # (Auto) Seg Neutrophils % Seg Neuts % (Manual) 93.0 H Lymphocytes % (Manual) 4.0 L Nucleated RBC % Seg Neutrophils # Seg Neutrophils # Man 32.1 H Lymphocytes # (Manual) Monocytes # (Manual) 1.0 H D-Dimer Heparin Anti-Xa Level ABG pH POC ABG pCO2 POC ABG pO2 ABG Hemoglobin ABG Oxyhemoglobin ABG Sodium ABG Potassium ABG Chloride ABG Glucose Carboxyhemoglobin Sodium Potassium Chloride Carbon Dioxide 20 L D BUN 70 H Creatinine 3.2 H D Glucose 108 H POC Glucose 138 H Hemoglobin A1c Calcium Phosphorus 7.70 H D Magnesium 2.60 H Ferritin Total Bilirubin AST 94 H ALT 103 H Alkaline Phosphatase 220 H Lactate Dehydrogenase C-Reactive Protein Total Protein Albumin 2.9 L Arterial Blood Glucose Arterial Blood Ionized Calcium Urine Creatinine Coronavirus (PCR) 01/06/21 01/06/21 01/06/21 17:25 17:41 19:50 WBC RBC Hct MCV MCHC Plt Count Lymph % (Auto) [place] % (Auto) Lymph # (Auto) Seg Neutrophils % Seg Neuts % (Manual) Lymphocytes % (Manual) Nucleated RBC % Seg Neutrophils # Seg Neutrophils # Man Lymphocytes # (Manual) Monocytes # (Manual) D-Dimer Heparin Anti-Xa Level ABG pH 7.079 L POC ABG pCO2 93.7 H POC ABG pO2 79.3 L ABG Hemoglobin ABG Oxyhemoglobin 92.1 L ABG Sodium ABG Potassium 4.8 H ABG Chloride ABG Glucose 196 H Carboxyhemoglobin Sodium Potassium Chloride Carbon Dioxide BUN Creatinine Glucose POC Glucose 165 H 216 H Hemoglobin A1c Calcium Phosphorus Magnesium Ferritin Total Bilirubin AST ALT Alkaline Phosphatase Lactate Dehydrogenase C-Reactive Protein Total Protein Albumin Arterial Blood Glucose 196 H Arterial Blood Ionized Calcium 4.4 L Urine Creatinine Coronavirus (PCR) 01/06/21 01/07/21 01/07/21 23:17 03:32 04:23 WBC RBC Hct MCV MCHC Plt Count Lymph % (Auto) [place] % (Auto) Lymph # (Auto) Seg Neutrophils % Seg Neuts % (Manual) Lymphocytes % (Manual) Nucleated RBC % Seg Neutrophils # Seg Neutrophils # Man Lymphocytes # (Manual) Monocytes # (Manual) D-Dimer Heparin Anti-Xa Level ABG pH 7.298 L POC ABG pCO2 73.2 H POC ABG pO2 75.7 L ABG Hemoglobin ABG Oxyhemoglobin 93.5 L ABG Sodium ABG Potassium ABG Chloride 94.0 L ABG Glucose 404 H Carboxyhemoglobin Sodium Potassium Chloride Carbon Dioxide BUN Creatinine Glucose POC Glucose 326 H 359 H Hemoglobin A1c Calcium Phosphorus Magnesium Ferritin Total Bilirubin AST ALT Alkaline Phosphatase Lactate Dehydrogenase C-Reactive Protein Total Protein Albumin Arterial Blood Glucose 404 H Arterial Blood Ionized Calcium 3.9 L Urine Creatinine Coronavirus (PCR) 01/07/21 01/07/21 01/07/21 07:26 11:10 16:29 WBC RBC Hct MCV MCHC Plt Count Lymph % (Auto) [place] % (Auto) Lymph # (Auto) Seg Neutrophils % Seg Neuts % (Manual) Lymphocytes % (Manual) Nucleated RBC % Seg Neutrophils # Seg Neutrophils # Man Lymphocytes # (Manual) Monocytes # (Manual) D-Dimer Heparin Anti-Xa Level ABG pH POC ABG pCO2 POC ABG pO2 ABG Hemoglobin ABG Oxyhemoglobin ABG Sodium ABG Potassium ABG Chloride ABG Glucose Carboxyhemoglobin Sodium Potassium Chloride Carbon Dioxide BUN Creatinine Glucose POC Glucose 385 H 384 H 250 H Hemoglobin A1c Calcium Phosphorus Magnesium Ferritin Total Bilirubin AST ALT Alkaline Phosphatase Lactate Dehydrogenase C-Reactive Protein Total Protein Albumin Arterial Blood Glucose Arterial Blood Ionized Calcium Urine Creatinine Coronavirus (PCR) 01/07/21 01/07/21 01/07/21 19:45 22:01 22:01 WBC 28.2 H RBC Hct MCV MCHC Plt Count Lymph % (Auto) [place] % (Auto) Lymph # (Auto) Seg Neutrophils % Seg Neuts % (Manual) Lymphocytes % (Manual) Nucleated RBC % Seg Neutrophils # Seg Neutrophils # Man Lymphocytes # (Manual) Monocytes # (Manual) D-Dimer Heparin Anti-Xa Level ABG pH POC ABG pCO2 POC ABG pO2 ABG Hemoglobin ABG Oxyhemoglobin ABG Sodium ABG Potassium ABG Chloride ABG Glucose Carboxyhemoglobin Sodium Potassium Chloride 90.4 L Carbon Dioxide 40 H D BUN 98 H Creatinine 6.2 H D Glucose 187 H POC Glucose 202 H Hemoglobin A1c Calcium 7.3 L Phosphorus Magnesium Ferritin Total Bilirubin AST ALT Alkaline Phosphatase Lactate Dehydrogenase C-Reactive Protein Total Protein Albumin Arterial Blood Glucose Arterial Blood Ionized Calcium Urine Creatinine Coronavirus (PCR) 01/07/21 01/08/21 01/08/21 23:12 03:30 03:31 WBC RBC Hct MCV MCHC Plt Count Lymph % (Auto) [place] % (Auto) Lymph # (Auto) Seg Neutrophils % Seg Neuts % (Manual) Lymphocytes % (Manual) Nucleated RBC % Seg Neutrophils # Seg Neutrophils # Man Lymphocytes # (Manual) Monocytes # (Manual) D-Dimer Heparin Anti-Xa Level ABG pH POC ABG pCO2 63.2 H POC ABG pO2 65.3 L ABG Hemoglobin ABG Oxyhemoglobin 91.8 L ABG Sodium 135.8 L ABG Potassium ABG Chloride 89.0 L ABG Glucose 210 H Carboxyhemoglobin Sodium Potassium Chloride Carbon Dioxide BUN Creatinine Glucose POC Glucose 185 H 195 H Hemoglobin A1c Calcium Phosphorus Magnesium Ferritin Total Bilirubin AST ALT Alkaline Phosphatase Lactate Dehydrogenase C-Reactive Protein Total Protein Albumin Arterial Blood Glucose 210 H Arterial Blood Ionized Calcium Urine Creatinine Coronavirus (PCR) 01/08/21 01/08/21 01/08/21 04:29 04:29 08:07 WBC 34.5 H RBC Hct MCV MCHC Plt Count Lymph % (Auto) [place] % (Auto) Lymph # (Auto) Seg Neutrophils % Seg Neuts % (Manual) 94.0 H Lymphocytes % (Manual) 2.0 L Nucleated RBC % 1.0 H Seg Neutrophils # Seg Neutrophils # Man 32.4 H Lymphocytes # (Manual) 0.7 L Monocytes # (Manual) 1.0 H D-Dimer Heparin Anti-Xa Level ABG pH POC ABG pCO2 POC ABG pO2 ABG Hemoglobin ABG Oxyhemoglobin ABG Sodium ABG Potassium ABG Chloride ABG Glucose Carboxyhemoglobin Sodium Potassium Chloride 89.3 L Carbon Dioxide 39 H BUN 106 H Creatinine 7.0 H Glucose 196 H POC Glucose 171 H Hemoglobin A1c Calcium 7.7 L Phosphorus 6.70 H Magnesium 2.50 H Ferritin Total Bilirubin AST 65 H ALT 88 H Alkaline Phosphatase 188 H Lactate Dehydrogenase C-Reactive Protein Total Protein Albumin 2.9 L Arterial Blood Glucose Arterial Blood Ionized Calcium Urine Creatinine Coronavirus (PCR) 01/08/21 01/08/21 01/08/21 11:38 16:40 18:00 WBC RBC Hct MCV MCHC Plt Count Lymph % (Auto) [place] % (Auto) Lymph # (Auto) Seg Neutrophils % Seg Neuts % (Manual) Lymphocytes % (Manual) Nucleated RBC % Seg Neutrophils # Seg Neutrophils # Man Lymphocytes # (Manual) Monocytes # (Manual) D-Dimer Heparin Anti-Xa Level 1.99 H ABG pH POC ABG pCO2 POC ABG pO2 ABG Hemoglobin ABG Oxyhemoglobin ABG Sodium ABG Potassium ABG Chloride ABG Glucose Carboxyhemoglobin Sodium Potassium Chloride Carbon Dioxide BUN Creatinine Glucose POC Glucose 177 H 174 H Hemoglobin A1c Calcium Phosphorus Magnesium Ferritin Total Bilirubin AST ALT Alkaline Phosphatase Lactate Dehydrogenase C-Reactive Protein Total Protein Albumin Arterial Blood Glucose Arterial Blood Ionized Calcium Urine Creatinine Coronavirus (PCR) 01/08/21 01/09/21 01/09/21 19:46 00:07 02:54 WBC RBC Hct MCV MCHC Plt Count Lymph % (Auto) [place] % (Auto) Lymph # (Auto) Seg Neutrophils % Seg Neuts % (Manual) Lymphocytes % (Manual) Nucleated RBC % Seg Neutrophils # Seg Neutrophils # Man Lymphocytes # (Manual) Monocytes # (Manual) D-Dimer Heparin Anti-Xa Level 2.00 H ABG pH POC ABG pCO2 POC ABG pO2 ABG Hemoglobin ABG Oxyhemoglobin ABG Sodium ABG Potassium ABG Chloride ABG Glucose Carboxyhemoglobin Sodium Potassium Chloride Carbon Dioxide BUN Creatinine Glucose POC Glucose 162 H 141 H Hemoglobin A1c Calcium Phosphorus Magnesium Ferritin Total Bilirubin AST ALT Alkaline Phosphatase Lactate Dehydrogenase C-Reactive Protein Total Protein Albumin Arterial Blood Glucose Arterial Blood Ionized Calcium Urine Creatinine Coronavirus (PCR) 01/09/21 01/09/21 01/09/21 03:31 04:20 08:11 WBC RBC Hct MCV MCHC Plt Count Lymph % (Auto) [place] % (Auto) Lymph # (Auto) Seg Neutrophils % Seg Neuts % (Manual) Lymphocytes % (Manual) Nucleated RBC % Seg Neutrophils # Seg Neutrophils # Man Lymphocytes # (Manual) Monocytes # (Manual) D-Dimer Heparin Anti-Xa Level ABG pH POC ABG pCO2 POC ABG pO2 ABG Hemoglobin ABG Oxyhemoglobin ABG Sodium ABG Potassium ABG Chloride ABG Glucose Carboxyhemoglobin Sodium Potassium Chloride 96.4 L Carbon Dioxide 32 H D BUN 67 H Creatinine 5.8 H Glucose 171 H POC Glucose 159 H 142 H Hemoglobin A1c Calcium 7.9 L Phosphorus Magnesium Ferritin Total Bilirubin 1.70 H AST 94 H ALT 108 H Alkaline Phosphatase 159 H Lactate Dehydrogenase C-Reactive Protein Total Protein 5.3 L Albumin 2.5 L Arterial Blood Glucose Arterial Blood Ionized Calcium Urine Creatinine Coronavirus (PCR) 01/09/21 01/09/21 08:59 11:28 WBC RBC Hct MCV MCHC Plt Count Lymph % (Auto) [place] % (Auto) Lymph # (Auto) Seg Neutrophils % Seg Neuts % (Manual) Lymphocytes % (Manual) Nucleated RBC % Seg Neutrophils # Seg Neutrophils # Man Lymphocytes # (Manual) Monocytes # (Manual) D-Dimer Heparin Anti-Xa Level ABG pH 7.239 L POC ABG pCO2 67.2 H POC ABG pO2 ABG Hemoglobin 10.5 L ABG Oxyhemoglobin ABG Sodium 134.8 L ABG Potassium ABG Chloride 96.0 L ABG Glucose 154 H Carboxyhemoglobin Sodium Potassium Chloride Carbon Dioxide BUN Creatinine Glucose POC Glucose 135 H Hemoglobin A1c Calcium Phosphorus Magnesium Ferritin Total Bilirubin AST ALT Alkaline Phosphatase Lactate Dehydrogenase C-Reactive Protein Total Protein Albumin Arterial Blood Glucose 154 H Arterial Blood Ionized Calcium Urine Creatinine Coronavirus (PCR)
[2021-01-09] MEDS: HEPARIN/ 0.45% NACL DRIP 25,000 UNIT/500 ML BAG IV SCH (13:29)
[2021-01-10] MEDS: NORepinephrine/NS 8 MG-250 ML 8 MG/250 ML INFUS..BTL IV SCH ×2 (02:33→10:35)
[2021-01-10] MEDS: INSULIN LISPRO 100 UNIT/ML SUB-Q SCH ×4 (03:37→12:20)
--- NOTE | 2021-01-10 04:22 | XRay Report ---
CHEST 1 VIEW INDICATION: chest tubes, vent COMPARISON: 12/13/2020 FINDINGS: SUPPORT DEVICES: Endotracheal tubes in good position. Right chest tube in place. Left chest tubes in place HEART / MEDIASTINUM: No significant abnormality. LUNGS / PLEURA: Diffuse pulmonary process again noted. No pneumothorax. Persistent subcutaneous emphysema ADDITIONAL FINDINGS: IMPRESSION: 1. No interval changes compared to previous exam Signer Name: Beltran Reis MD Signed: 01/10/2021 4:18 AM Workstation Name: [id number]
[2021-01-10] MEDS: fentaNYL DRIP Premix 2,000 MCG/100 ML BAG IV SCH ×3 (04:56→14:40)
[2021-01-10] MEDS: methylPREDNISolone Sod Succinate 40 MG/1 ML INJ IV SCH ×2 (05:19→12:23)
[2021-01-10 06:30] LABS: Albumin 2.7 g/dL (3.9-5)
[2021-01-10] MEDS ORDERED: HEPARIN 10,000 UNITS/10 ML VIAL IV PRN (08:00)
[2021-01-10] MEDS: INSULIN NPH/REGULAR 70/30 INJ SUB-Q SCH (08:27)
[2021-01-10] MEDS: AMIODARONE 900 MG in DEXTROSE 5% IN WATER 482 ML IV SCH (08:28)
--- NOTE | 2021-01-10 09:12 | Progress Note ---
Assessment and Plan Assessment and plan: 55-year-old female patient with severe Covid 19 infection, respiratory failure intubated on vent, history of interstitial lung disease, septic shock on multiple pressors, bilateral pneumothorax status post chest tube placement, massive subcutaneous emphysema, acute kidney injury requiring hemodialysis, new onset atrial fibrillation with rapid ventricular rate, multiple electrolyte imbalance and morbid obesity BMI 47.6, critically ill with very poor prognosis. Remains intubated on ventilatory support. Assessment and plan; --Acute hypoxic respiratory failure; intubated continue ventilatory support, Pulmonary critical following Due to severe COVID-19 infection,h/o ILD Obesity hypoventilation syndrome . --Hypotension/septic shock; On multiple pressors, titrate and wean as tolerated Poor prognosis --History of interstitial lung disease[ILD]; on CT scan at [facility] Received pulse steroids total 3 dose ,Follow blood sugars --Bilateral pneumothorax; s/p bilateral chest tube placements today per surgery Continue supportive care, surgery and pulmonary following --Subcutaneous emphysema/small pneumoperitoneum,Supportive care --A. fib with rapid ventricular rate; new onset Patient is on amiodarone drip, unable to give beta-blockers due to hypotension On heparin drip, Cardiology following, echocardiogram for LV function and ejection fraction --Acute kidney injury;Rapid worsening renal function Nephrology initiated hemodialysis, HD per schedule --Sepsis due to COVID-19 pneumonia Procalcitonin low, no need for antibiotics --Severe, COVID-19 infection;Guarded prognosis Completed remdesivir, Received Tocilizumab Continue IV steroids per pulmonary Monitor inflammatory markers Prone positioning as tolerated Home oxygen evaluation prior to discharge --Diabetes mellitus type 2; uncontrolled,A1c 10.3 Accu-Chek sliding scale coverage ADA diet Patient has pneumoperitoneum, tube feeding stopped We will decrease 70/30 insulin dose to 20 mg subcu twice daily Closely monitor blood sugars --Elevated D-dimers; due to COVID-19 Negative PE, negative DVT --Hyponatremia; dehydration, poor oral intake Advised plenty free water as tolerated --Morbid obesity; BMI 46.2 Patient needs weight reduction when medically stable --OHS/JERMAINE; due to morbid obesity Patient needs outpatient sleep study to rule out JERMAINE CPAP/BiPAP at night and as needed --Elevated LFTs probably Covid related; resolved . --DVT prophylaxis; Lovenox Closely monitor the patient and adjust the management as needed Corking Machine Operator recommendations noted and appreciated Plan of care reviewed with the patient and her nurse Patient is critically ill with guarded prognosis Patient and family aware The high probability of a clinically significant, sudden or life threatening deterioration of the [multi] system(s) required my full and direct attention, intervention and personal management. The aggregate critical care time was [45] minutes. This time is in addition to time spent performing reported procedures but includes the following: [x] Data Review and interpretation [x] Patient assessment and monitoring of vital signs [x] Documentation [x] Medication orders and management Brief history and daily patient care; Morbidly obese 55 y/o -[place]ian female patient past medical history of ILD on CT scan[per [place] records] was admitted with worsening shortness of breath noted to have severe COVID-19 pneumonia. Patient was in acute hypoxic respiratory failure, high flow nasal oxygen and BiPAP dependent. Patient went into sudden respiratory failure requiring intubation and went, complicated by bilateral pneumothorax and massive subcutaneous emphysema, surgery evaluated s/p bilateral chest tube placement . Patient went into acute kidney injury, with rapid worsening of renal function with creatinine of 7.0[01/07/2021] reconsulted nephrology, hemodialysis initiated Patient also had acute atrial fibrillation with rapid ventricular rate, cardiology evaluated and placed on amiodarone, beta-blockers. Heparin drip Patient has very poor prognosis with multiple medical problems, family son Mr. Sunny Scott is aware. Daily updates with patient's son. Patient is in septic shock requiring 3 pressors, very poor prognosis. 01/04/2021; blood sugars moderate control, increase 70/30 insulin to 34 units twice a day on continuous BiPAP, TPN started per director of category management Mild hypotension, fluid boluses, consider 01/05/2021; patient is on continuous BiPAP In severe respiratory distress Started on pulse dose steroids second dose today 01/06/2021; Patient was in severe respiratory failure requiring intubation ventilatory support yesterday Blood sugar slightly high, insulin dose increased to 40 units Novolin 70/30 twice a day Restraints in place, closely monitor 01/07/2021; patient is critically ill with very poor prognosis, family aware Continue current management, risk management consultant recommendations noted and appreciated Very poor prognosis, family aware 01/08/2021; new onset A. fib rapid ventricular rate, amiodarone, heparin drip cardiology following Rapid acute worsening renal function, creatinine 7.0, nephrology consulted Patient is critically ill with very poor prognosis 01/09/2021; patient remains critically ill on ventilatory support, on pressors, bilateral chest tubes, massive subcutaneous emphysema Atrial fibrillation on amiodarone drip, acute kidney injury on hemodialysis. Very poor prognosis, family aware Continue current management History Interval history: I have seen and examined the patient at the bedside in ICU today Patient's chart and medications reviewed Isolation precautions PPE protocols strictly followed per COVID-19 guidelines patient patient remains intubated on ventilatory support Still has large amount of subcutaneous emphysema Bilateral chest tubes in place 2 pressors are discontinued and patient's blood pressure is low stable on Levophed No new complaints per nursing Vital signs reviewed Hospitalist Physical - Constitutional Vitals: Temp Pulse Resp BP Pulse Ox 98.5 F 86 28 H 107/54 86 01/10/21 08:00 01/10/21 08:27 01/10/21 08:09 01/10/21 08:27 01/10/21 08:27 General appearance: Present: severe distress, well-nourished, obese (Morbidly obese), other (Intubated on ventilatory support, subcutaneous emphysema,) - EENT Eyes: Present: PERRL, EOM intact - Neck Neck: Present: supple, normal ROM - Respiratory Respiratory effort: normal Respiratory: bilateral: diminished, rhonchi, negative: rales, wheezing - Cardiovascular Rhythm: regular Heart Sounds: Present: S1 & S2 - Extremities Extremities: no ischemia, abnormal (Obese) Extremity abnormal: edema - Abdominal General gastrointestinal: soft, non-tender HEART Score - HEART Score Troponin: Troponin T < 0.010 ng/mL (0.00-0.029) 12/20/20 19:27 Results - Labs CBC & Chem 7: 01/10/21 12:29 01/10/21 04:00 Labs: Laboratory Last Values WBC 34.5 K/mm3 (4.5-11.0) H 01/08/21 04:29 RBC 4.13 M/mm3 (3.65-5.03) 01/08/21 04:29 Hgb 12.8 gm/dl (10.1-14.3) 01/08/21 08:26 Hct 38.2 % (30.3-42.9) 01/08/21 08:26 MCV 95 fl (79-97) 01/08/21 04:29 MCH 32 pg (28-32) 01/08/21 04:29 MCHC 33 % (30-34) 01/08/21 04:29 RDW 13.4 % (13.2-15.2) 01/08/21 04:29 Plt Count 186 K/mm3 (140-440) 01/08/21 08:26 Lymph % (Auto) Priming Powder Premix Blender 01/06/21 14:49 [place] % (Auto) Priming Powder Premix Blender 01/06/21 14:49 Eos % (Auto) Priming Powder Premix Blender 01/06/21 14:49 Baso % (Auto) Priming Powder Premix Blender 01/06/21 14:49 Lymph # (Auto) Priming Powder Premix Blender 01/06/21 14:49 [place] # (Auto) Priming Powder Premix Blender 01/06/21 14:49 Eos # (Auto) Priming Powder Premix Blender 01/06/21 14:49 Baso # (Auto) Priming Powder Premix Blender 01/06/21 14:49 Add Manual Diff Complete 01/08/21 04:29 Total Counted 100 01/08/21 04:29 Seg Neutrophils % Priming Powder Premix Blender 01/08/21 04:29 Seg Neuts % (Manual) 94.0 % (40.0-70.0) H 01/08/21 04:29 Band Neutrophils % 4.0 % 12/23/20 14:09 Lymphocytes % (Manual) 2.0 % (13.4-35.0) L 01/08/21 04:29 Reactive Lymphs % (Man) 1.0 % 12/23/20 14:09 Monocytes % (Manual) 3.0 % (0.0-7.3) 01/08/21 04:29 Eosinophils % (Manual) 1.0 % (0.0-4.3) 01/08/21 04:29 Nucleated RBC % 1.0 % (0.0-0.9) H 01/08/21 04:29 Seg Neutrophils # Priming Powder Premix Blender 01/06/21 14:49 Seg Neutrophils # Man 32.4 K/mm3 (1.8-7.7) H 01/08/21 04:29 Band Neutrophils # 0.0 K/mm3 01/08/21 04:29 Lymphocytes # (Manual) 0.7 K/mm3 (1.2-5.4) L 01/08/21 04:29 Abs React Lymphs (Man) 0.0 K/mm3 01/08/21 04:29 Monocytes # (Manual) 1.0 K/mm3 (0.0-0.8) H 01/08/21 04:29 Eosinophils # (Manual) 0.3 K/mm3 (0.0-0.4) 01/08/21 04: Basophils # (Manual) 0.0 K/mm3 (0.0-0.1) 01/08/21 04:29 Metamyelocytes # 0.0 K/mm3 01/08/21 04: Myelocytes # 0.0 K/mm3 01/08/21 04:29 Promyelocytes # 0.0 K/mm3 01/08/21 04:29 Blast Cells # 0.0 K/mm3 01/08/21 04:29 Pathologist Review 01/06/21 14:49 WBC Morphology Not Reportable 01/08/21 04:29 Hypersegmented Neuts Not Reportable 01/08/21 04:29 Hyposegmented Neuts Not Reportable 01/08/21 04:29 Hypogranular Neuts Not Reportable 01/08/21 04:29 Smudge Cells Not Reportable 01/08/21 04:29 Toxic Granulation Not Reportable 01/08/21 04:29 Toxic Vacuolation Not Reportable 01/08/21 04:29 Dohle Bodies Not Reportable 01/08/21 04:29 Pelger-Huet Anomaly Not Reportable 01/08/21 04:29 Jair Rods Not Reportable 01/08/21 04:29 Platelet Estimate Consistent w auto 01/08/21 04:29 Clumped Platelets Not Reportable 01/08/21 04:29 Plt Clumps, EDTA Not Reportable 01/08/21 04:29 Large Platelets Not Reportable 01/08/21 04:29 Giant Platelets Not Reportable 01/08/21 04:29 Platelet Satelliting Not Reportable 01/08/21 04:29 Plt Morphology Comment Not Reportable 01/08/21 04:29 RBC Morphology Normal 01/08/21 04:29 Dimorphic RBCs Not Reportable 01/08/21 04:29 Polychromasia Not Reportable 01/08/21 04:29 Hypochromasia Not Reportable 01/08/21 04:29 Poikilocytosis Not Reportable 01/08/21 04:29 Anisocytosis Not Reportable 01/08/21 04:29 Microcytosis Not Reportable 01/08/21 04:29 Macrocytosis Not Reportable 01/08/21 04:29 Spherocytes Not Reportable 01/08/21 04:29 Pappenheimer Bodies Not Reportable 01/08/21 04:29 Sickle Cells Not Reportable 01/08/21 04:29 Target Cells Not Reportable 01/08/21 04:29 Tear Drop Cells Not Reportable 01/08/21 04:29 Ovalocytes Not Reportable 01/08/21 04:29 Stomatocytes Rare 01/06/21 14:49 Helmet Cells Not Reportable 01/08/21 04:29 Foote-Dowling Bodies Not Reportable 01/08/21 04:29 [place] Rings Not Reportable 01/08/21 04:29 [place] Cells Not Reportable 01/08/21 04:29 Bite Cells Not Reportable 01/08/21 04:29 Crenated Cell Not Reportable 01/08/21 04:29 Elliptocytes Not Reportable 01/08/21 04:29 Acanthocytes (Spur) Not Reportable 01/08/21 04:29 Rouleaux Not Reportable 01/08/21 04:29 Hemoglobin C Crystals Not Reportable 01/08/21 04:29 Schistocytes Not Reportable 01/08/21 04:29 Malaria parasites Not Reportable 01/08/21 04:29 Giorgi Bodies Not Reportable 01/08/21 04:29 Hem Pathologist Commnt No 01/08/21 04:29 PT 14.0 Sec. (12.2-14.9) 01/08/21 11:50 INR 1.09 (0.87-1.13) 01/08/21 11:50 APTT 26.5 Sec. (24.2-36.6) 01/08/21 11:50 D-Dimer 1259.33 ng/mlDDU (0-234) H 01/03/21 16:00 Heparin Anti-Xa Level 1.05 U.I./ml (0.3-0.7) H 01/09/21 23:15 ABG pH 7.235 (7.320-7.450) L 01/10/21 03:35 POC ABG pCO2 67.7 mmHg (32.0-48.0) H 01/10/21 03:35 POC ABG pO2 49.1 mmHg (83-108) L 01/10/21 03:35 POC ABG HCO3 28.0 01/10/21 03:35 ABG O2 Saturation 79.1 (0-100) 01/10/21 03:35 POC ABG Base Excess -0.3 01/10/21 03:35 ABG Hemoglobin 9.6 (12.0-17.5) L 01/10/21 03:35 ABG Oxyhemoglobin 78.6 (94-98) L 01/10/21 03:35 ABG Methemoglobin 0.3 (0.0-1.5) 01/10/21 03:35 ABG Sodium 133.5 mmol/L (136.0-145.0) L 01/10/21 03:35 ABG Potassium 4.8 mmol/L (3.40-4.50) H 01/10/21 03:35 ABG Chloride 96.0 mmol/L (98-107) L 01/10/21 03:35 ABG Glucose 200 mg/dL (65-95) H 01/10/21 03:35 Carboxyhemoglobin 0.3 (0.5-1.5) L 01/10/21 03:35 FiO2 % 100.0 01/10/21 03:35 Sodium 136 mmol/L (137-145) L 01/10/21 04:00 Potassium 4.9 mmol/L (3.6-5.0) 01/10/21 04:00 Chloride 90.6 mmol/L (98-107) L 01/10/21 04:00 Carbon Dioxide 30 mmol/L (22-30) 01/10/21 04:00 Anion Gap 20 mmol/L 01/10/21 04:00 BUN 92 mg/dL (7-17) H 01/10/21 04:00 Creatinine 7.5 mg/dL (0.6-1.2) H 01/10/21 04:00 Estimated GFR 7 ml/min 01/10/21 04:00 BUN/Creatinine Ratio 12 % 01/10/21 04:00 Glucose 196 mg/dL (65-100) H 01/10/21 04:00 POC Glucose 160 mg/dL (70-105) H 01/10/21 03:29 Hemoglobin A1c 10.3 % (4-6) H 12/21/20 05:50 Lactic Acid 1.40 mmol/L (0.7-2.0) 12/21/20 05:50 Calcium 7.0 mg/dL (8.4-10.2) L 01/10/21 04:00 Phosphorus 6.70 mg/dL (2.5-4.5) H 01/08/21 04:29 Magnesium 2.50 mg/dL (1.7-2.3) H 01/08/21 04:29 Ferritin 1526.0 ng/mL (10.0-200.0) H 01/03/21 16:00 Total Bilirubin 1.30 mg/dL (0.1-1.2) H 01/10/21 04:00 Direct Bilirubin 0.2 mg/dL (0-0.2) 01/05/21 04:09 Indirect Bilirubin 0.4 mg/dL 01/05/21 04:09 AST 107 units/L (5-40) H 01/10/21 04:00 ALT 138 units/L (7-56) H 01/10/21 04:00 Alkaline Phosphatase 168 units/L (35-129) H 01/10/21 04:00 Lactate Dehydrogenase 815 units/L (91-180) H 01/03/21 16:00 Troponin T < 0.010 ng/mL (0.00-0.029) 12/20/20 19:27 C-Reactive Protein 0.40 mg/dL (0.00-1.30) 01/03/21 16:00 Total Protein 5.3 g/dL (6.3-8.2) L 01/10/21 04:00 Albumin 2.7 g/dL (3.9-5) L 01/10/21 04:00 Albumin/Globulin Ratio 1.0 % 01/10/21 04:00 Procalcitonin 0.07 ng/mL (<0.15) 12/26/20 11:08 Arterial Blood Glucose 200 mg/dL (65-95) H 01/10/21 03:35 Arterial Blood Ionized Calcium 3.6 mg/dL (4.6-5.3) L 01/10/21 03:35 Urine Color Yellow (Yellow) 12/22/20 03:00 Urine Turbidity Clear (Clear) 12/22/20 03:00 Urine pH 5.0 (5.0-7.0) 12/22/20 03:00 Ur Specific [place] 1.019 (1.003-1.030) 12/22/20 03:00 Urine Protein 100 mg/dl mg/dL (Negative) 12/22/20 03:00 Urine Glucose (UA) 50 mg/dL (Negative) 12/22/20 03:00 Urine Ketones Neg mg/dL (Negative) 12/22/20 03:00 Urine Blood Sm (Negative) 12/22/20 03:00 Urine Nitrite Neg (Negative) 12/22/20 03:00 Urine Bilirubin Neg (Negative) 12/22/20 03:00 Urine Urobilinogen 2.0 mg/dL (<2.0) 12/22/20 03:00 Ur Leukocyte Esterase Neg (Negative) 12/22/20 03:00 Urine WBC (Auto) 1.0 /HPF (0.0-6.0) 12/22/20 03:00 Urine RBC (Auto) 1.0 /HPF (0.0-6.0) 12/22/20 03:00 U Epithel Cells (Auto) 3.0 /HPF (0-13.0) 12/22/20 03:00 Urine Bacteria (Auto) 1+ /HPF (Negative) 12/22/20 03:00 Urine Mucus Few /HPF 12/22/20 03:00 Urine Eosinophils None seen (None Seen) 12/22/20 03:00 Urine Creatinine 117.9 mg/dL (0.1-20.0) H 12/22/20 03:00 Urine Sodium 67 mmol/L 12/22/20 03:00 Coronavirus (PCR) Positive (Negative) A 12/21/20 10:28 Hepatitis A IgM Ab Non-reactive (NonReactive) 12/22/20 06:00 Hep Bs Antigen Non-reactive (Negative) 12/22/20 06:00 Hep B Core IgM Ab Non-reactive (NonReactive) 12/22/20 06:00 Hepatitis C Antibody Non-reactive (NonReactive) 12/22/20 06:00 [place]/IV: Voiding Method Indwelling Catheter Active Medications - Current Medications Current Medications: Generic Name Dose Route Start Last Admin Trade Name Freq PRN Reason Stop Dose Admin Acetaminophen 650 mg 12/20/20 23:15 12/24/20 09:40 Acetaminophen 325 Mg Tab PO 650 mg Q4H PRN Administration Pain MILD(1-3)/Fever >100.5/VARGAS Albuterol 2.5 mg 12/21/20 12:00 Albuterol 2.5 Mg/3 Ml Nebu IH Q4HRT PRN Shortness Of Breath Lipase/Protease/Amylase 1 each 01/05/21 17:30 Lipase 10,500/Protease 25,000/Amylase 43,750 (Units) Dr Cap FEEDTUBE PRN PRN For Clogged Feeding Tube Dextrose 50 ml 12/20/20 23:15 Dextrose 50% In Water (25gm) 50 Ml Syringe IV Q30MIN PRN Hypoglycemia Protocol Fentanyl 50 mcg 01/05/21 14:33 01/08/21 10:17 Fentanyl 100 Mcg/2 Ml Inj IV 50 mcg Q10MIN PRN Administration ANALGESIA Heparin Sodium (Porcine) 3,000 unit 01/08/21 14:12 01/08/21 18:40 Heparin 10,000 Units/10 Ml Vial IV 3,000 unit FRITZ PRN Administration hemodialysis Heparin Sodium (Porcine) 5,000 unit 01/10/21 08:00 Heparin 10,000 Units/10 Ml Vial 40 unit/kg (5400 unit) IV Q6H PRN Anti-Xa Assay < 0.1 units/ml Hydralazine HCl 10 mg 01/05/21 10:28 01/06/21 04:59 Hydralazine 20 Mg/1 Ml Inj IV 10 mg Q6H PRN Administration SBP >/=160; DBP >/=100 Propofol 1,000 mg in 100 mls @ 3.882 mls/hr 01/05/21 15:00 01/08/21 06:12 Diprivan 10 Mg/Ml IV 0 mcg/kg/min TITR TAMEKA 0 mls/hr Titration Protocol 5 MCG/KG/MIN Fentanyl Citrate 2,000 mcg in 100 mls @ 6.47 mls/hr 01/05/21 15:00 01/10/21 04:56 Fentanyl Drip Premix IV 3 mcg/kg/hr TITR TAMEKA 19.41 mls/hr Administration Protocol 1 MCG/KG/HR NORepinephrine/NS 8 MG-250 ML 8 mg in 250 mls @ 3.75 mls/hr 01/07/21 11:00 01/10/21 03:14 Norepinephrine/Ns 8 Mg-250 Ml (Double Conc) IV 18 mcg/min TITRATE TAMEKA 33.75 mls/hr Titration Protocol 2 MCG/MIN Amiodarone HCl 900 mg/ 500 mls @ 33.333 mls/hr 01/08/21 03:00 01/10/21 08:28 Dextrose IV 0.5 mg/min DIRECT TAMEKA 16.667 mls/hr Administration Protocol 1 MG/MIN Heparin Sodium/Sodium Chloride 25,000 unit in 500 mls @ 30 mls/hr 01/08/21 11:00 01/10/21 01:57 Heparin/ 0.45% Nacl-25,000 Unit/500 Ml IV 500 units/hr TITR TAMEKA 10 mls/hr Titration Protocol 1,500 UNITS/HR Vasopressin 20 unit/ Sodium 101 mls @ 9.09 mls/hr 01/08/21 11:00 01/09/21 14:28 Chloride IV 0 units/min TITR TAMEKA 0 mls/hr Titration Protocol 0.03 UNITS/MIN Phenylephrine HCl 100 mg/ 100 mls @ 3 mls/hr 01/08/21 14:00 01/09/21 09:55 Sodium Chloride IV 0 mcg/min TITR TAMEKA 0 mls/hr Titration Protocol 50 MCG/MIN Sodium Chloride 100 mls @ 999 mls/hr 01/08/21 14:12 Nacl 0.9% IV FRITZ PRN Hypotension Insulin Human Isoph/Insulin Regular 20 unit 01/07/21 17:00 01/10/21 08:27 Insulin Nph/Regular 70/30 Inj SUB-Q 20 unit [facility]AB [facility] Administration Insulin Human Lispro 0 unit 01/07/21 00:00 01/10/21 08:36 Insulin Lispro 100 Unit/Ml SUB-Q Not Given Q4H [facility] Protocol Magnesium Hydroxide 30 ml 12/20/20 23:15 Magnesium Hydroxide (Mom) Oral Liqd Udc PO Q4H PRN Constipation Methylprednisolone Sodium Succinate 60 mg 01/07/21 12:00 01/10/21 05:19 Methylprednisolone Sod Succinate 40 Mg/1 Ml Inj IV 60 mg Q6HR TAMEKA Administration Ondansetron HCl 4 mg 12/20/20 23:15 Ondansetron 4 Mg/2 Ml Inj IV Q8H PRN Nausea And Vomiting Pantoprazole Sodium 40 mg 01/08/21 14:00 01/09/21 21:01 Pantoprazole 40 Mg Inj IV 40 mg BID TAMEKA Administration Simple Syrup 15 ml 01/05/21 17:30 Simple Syrup 15 Ml FEEDTUBE PRN PRN Hypoglycemia Simple Syrup 30 ml 01/05/21 17:30 Simple Syrup 15 Ml FEEDTUBE PRN PRN Hypoglycemia Sodium Bicarbonate 325 mg 01/05/21 17:30 Sodium Bicarbonate 325 Mg Tab FEEDTUBE PRN PRN For Clogged Feeding Tube Sodium Chloride 10 ml 12/21/20 10:00 01/09/21 21:16 Sodium Chloride 0.9% 10 Ml Flush Syringe IV 10 ml BID TAMEKA Administration Sodium Chloride 10 ml 12/20/20 23:15 01/09/21 21:01 Sodium Chloride 0.9% 10 Ml Flush Syringe IV 10 ml PRN PRN Administration LINE FLUSH Sodium Chloride 1 applic 12/22/20 12:00 01/09/21 21:02 [place] Saline Nasal Gel 14.1 Gm NS 1 applic BID TAMEKA Administration Sodium Chloride 5 ml 01/07/21 11:22 Sodium Chloride 0.9% 500 Ml Ivpb IV PRN PRN ART-LINE Nutrition/Malnutrition Assess - Dietary Evaluation Nutrition/Malnutrition Findings: Nutrition Notes Start: 12/21/20 09:35 Freq: Status: Active Protocol: Document 01/06/21 07:54 (Rec: 01/06/21 07:58 [id number]) Nutrition Notes Need for Assessment generated from: MD Order Initial or Follow up Reassessment Current Diagnosis Diabetes,Hypertension, Respiratory Failure Other Pertinent Diagnosis pneu, COVID 19(+), SOB, Diabetic Neuropathy Current Diet TF Labs/Tests No new labs Pertinent Medications Propofol at 11.646ml/hr ( 307kcal) Height 5 ft 7 in Weight 129.4 kg [place] Body Weight (kg) 61.36 BMI 44.6 Weight Status Morbidly Obese Subjective/Other Information MD order for TF. Pt was intubated. Burn Absent Trauma Absent GI Symptoms None Current % PO Negligible Minimum of two criteria Yes Energy Intake (severe) < or equal to 50% Estimated Energy Requirement > or equal to 5 days Reduced Siebel Consultant Strength Measurably Reduced (severe) #2 Nutrition Diagnosis Malnutrition Diagnosis Progress(for reassessment Continues documentation) #1 Nutrition Diagnosis Inadequate oral intake As Evidenced by Signs and Symptoms pt unable to consume PO Diagnosis Progress(for reassessment Continues documentation) Is patient on ventilator? Yes Is Patient Ambulatory and/or Out of Bed No REE-([place]-St. Jeor-confined to bed) 2309.676 Kcal/Kg value to use for calculation 15 Approximate Energy Requirements Using 1941 kcal/Kg Calculation Used for Recommendations Kcal/kg Additional Notes PRO needs: >154g (<2.5g/kg IBW ) Fluid needs: 1 mL/kcal or per MD Nutrition Intervention Nutrition Support: Vital AF at 65 ml/hr Flush 100 q4h Kcal 1,872 Protein (gm) 117 Carbohydrates (gm) 197 Fat (gm) 84 Fluid (mL) 1,265 Fiber (gm) 0 Add Supplement/Snack (indicate name/kcal D/c /protein ) Goal #1 Meet at least 75% of energy and protein needs via TF Anticipated Discharge Needs: Unable to determine at this time Follow-Up By: 01/10/21 Additional Comments FU for TF start and tolerance
--- NOTE | 2021-01-10 10:10 | Progress Note ---
Assessment and Plan 55 y/o female with acute respiratory failure secondary to cOVID 19 with prior history of ILD on a CT in [place] system 01/07/21: Renal failure now with minimal urine output. pH is better so will stop bicarb drip. Bilateral chest tubes in place. Will attempt art line placement and determining now if central access is needed. OVerall prognosis is very very guarded. Agree with follow ABG in am and need to obtain labs if possible to assess renal function. overall prognosis is very very guarded to poor. 01/06/21: May need to give another dose of lasix today. Await Chemistry from this am. Practicing lung protective strategy so low tidal volumes with permissive hypercapnea is acceptable as long as pH is 7.2 and above. Will re peat gas this afternoon on new settings. Feed patient. Guarded prognosis. 01/05/21: Continue bipap therapy for now. Continue stress dose steroids. Hopeful patient will improve but may ultimately require intubation. Very very sick lungs prior to acquiring covid. 01/04/21: No lasix again today. Continue Free water at current IV rate as stated below. Check labs tomorrow. Continue PPV and attempt to wean FiO2 accordingly. Consider nutrition consult for PPN. Prognosis still remains very guarded. 01/03/21: continue between HFNC and bipap. Will hold on lasix today as patient is getting more hypernatremia and worsening renal function. All secondary to lack of eating and drinking. Ok with starting with D5 at like 42/hr. Guarded prognosis. 01/02/21: Continue to avoid intubation at all costs. Continue high dose steroids. Given concern for ILD, may even need to consider pulse dose steroids but will discuss on rounds tomorrow. Lasix was given last night and yesterday morning. negative 1700 on yesterday. Please check labs in the am as I would like to give lasix again tonight. 01/01/21: Unfortunately, given her high risk for intubation, patient will not be able to eat. Nutrition has been an issue and we will discuss this on rounds. May need PPN. Continue steroids at current dosing. Will give an additional dose of lasix tonight. 12/31/20: will continue steroids today as same dose and frequency. No changes to lasix therapy. Need to keep patient as calm as possible to allow bipap to work to avoid intubation at all costs. Prognosis still remains guarded. 12/30/20: Continue steroids at 60q6. Continue daily lasix. may need to consider BID dosing to help with more volume removal if renal function will permit. Overall prognosis is very very guarded to poor, especially if the patient ends up on the mechanical ventilator. 12/29/20: Will increase steroids to q6 hour dosing to see if this helps. Prognosis is very very guarded. 12/28/20: Continue steroids and lasix, may need to ask renal about BID dosing for a few days to see if this will help. Prone as tolerated during the day and sleep prone at night. 1. Agree with change in steroids to solumedrol 60q8, will continue for now 2. Agree with daily lasix but goal should be daily net negative state. 3. Prone as tolerated during the day and sleep prone at night 4. Guarded prognosis CCT 31 minutes. Subjective Date of service: 01/10/21 Principal diagnosis: COVID-19 Interval history: no acute events. Objective Vital Signs - 12hr 01/09/21 01/09/21 01/09/21 22:15 22:30 22:45 Temperature Pulse Rate 75 77 76 Pulse Rate [ From Monitor] Respiratory 28 H 28 H 28 H Rate Blood Pressure 112/53 109/54 107/53 O2 Sat by Pulse 94 95 94 Oximetry 01/09/21 01/09/21 01/09/21 23:00 23:15 23:30 Temperature Pulse Rate 74 75 76 Pulse Rate [ From Monitor] Respiratory 28 H 28 H 28 H Rate Blood Pressure 109/52 103/50 98/53 O2 Sat by Pulse 93 94 93 Oximetry 01/09/21 01/09/21 01/09/21 23:32 23:45 23:48 Temperature 98.9 F Pulse Rate 75 75 Pulse Rate [ From Monitor] Respiratory 28 H Rate Blood Pressure 104/53 104/53 O2 Sat by Pulse 93 95 Oximetry 01/09/21 01/10/21 01/10/21 23:54 00:00 00:15 Temperature Pulse Rate 74 75 78 Pulse Rate [ 75 From Monitor] Respiratory 28 H 28 H 28 H Rate Blood Pressure 108/55 109/53 107/53 O2 Sat by Pulse 95 95 91 Oximetry 01/10/21 01/10/21 01/10/21 00:30 00:46 01:00 Temperature Pulse Rate 79 87 87 Pulse Rate [ From Monitor] Respiratory 28 H 27 H 28 H Rate Blood Pressure 108/54 185/76 105/61 O2 Sat by Pulse 89 78 L 92 Oximetry 01/10/21 01/10/21 01/10/21 01:15 01:30 01:45 Temperature Pulse Rate 82 80 78 Pulse Rate [ From Monitor] Respiratory 28 H 28 H 28 H Rate Blood Pressure 102/57 102/57 93/54 O2 Sat by Pulse 94 97 97 Oximetry 01/10/21 01/10/21 01/10/21 02:00 02:15 02:30 Temperature Pulse Rate 79 78 76 Pulse Rate [ From Monitor] Respiratory 28 H 28 H 28 H Rate Blood Pressure 96/53 91/51 101/53 O2 Sat by Pulse 97 97 94 Oximetry 01/10/21 01/10/21 01/10/21 02:45 03:00 03:15 Temperature Pulse Rate 78 79 82 Pulse Rate [ From Monitor] Respiratory 28 H 28 H 28 H Rate Blood Pressure 103/55 96/53 106/61 O2 Sat by Pulse 91 89 Oximetry 01/10/21 01/10/21 01/10/21 03:30 03:43 03:45 Temperature Pulse Rate 87 89 82 Pulse Rate [ From Monitor] Respiratory 28 H 28 H Rate Blood Pressure 106/61 103/51 115/67 O2 Sat by Pulse 79 L 79 L Oximetry 01/10/21 01/10/21 01/10/21 03:55 04:00 04:15 Temperature 98.9 F Pulse Rate 81 79 Pulse Rate [ 80 From Monitor] Respiratory 28 H 28 H Rate Blood Pressure 117/63 105/57 O2 Sat by Pulse 90 89 Oximetry 01/10/21 01/10/21 01/10/21 04:30 04:45 05:00 Temperature Pulse Rate 80 81 80 Pulse Rate [ From Monitor] Respiratory 28 H 28 H 28 H Rate Blood Pressure 109/60 111/59 102/61 O2 Sat by Pulse 89 87 87 Oximetry 01/10/21 01/10/21 01/10/21 05:15 05:30 05:45 Temperature Pulse Rate 80 80 81 Pulse Rate [ From Monitor] Respiratory 28 H 28 H 28 H Rate Blood Pressure 100/61 103/61 98/65 O2 Sat by Pulse 86 88 85 Oximetry 01/10/21 01/10/21 01/10/21 06:00 06:15 06:30 Temperature Pulse Rate 83 80 81 Pulse Rate [ From Monitor] Respiratory 28 H 28 H 28 H Rate Blood Pressure 108/59 107/62 104/61 O2 Sat by Pulse 87 87 Oximetry 01/10/21 01/10/21 01/10/21 06:45 07:00 07:15 Temperature Pulse Rate 81 81 81 Pulse Rate [ From Monitor] Respiratory 28 H 28 H 28 H Rate Blood Pressure 101/64 105/58 104/56 O2 Sat by Pulse 87 87 88 Oximetry 01/10/21 01/10/21 01/10/21 07:30 07:45 08:00 Temperature 98.5 F Pulse Rate 81 81 Pulse Rate [ 82 From Monitor] Respiratory 28 H 28 H Rate Blood Pressure 97/61 106/55 O2 Sat by Pulse 88 88 Oximetry 01/10/21 01/10/21 01/10/21 08:09 08:15 08:27 Temperature Pulse Rate 82 83 86 Pulse Rate [ From Monitor] Respiratory 28 H 28 H Rate Blood Pressure 107/54 107/54 O2 Sat by Pulse 86 84 86 Oximetry 01/10/21 01/10/21 01/10/21 08:30 08:45 09:00 Temperature Pulse Rate 85 83 81 Pulse Rate [ From Monitor] Respiratory 28 H 28 H 28 H Rate Blood Pressure 114/63 110/64 104/62 O2 Sat by Pulse 87 87 Oximetry 01/10/21 09:15 Temperature Pulse Rate 81 Pulse Rate [ From Monitor] Respiratory 28 H Rate Blood Pressure 114/54 O2 Sat by Pulse 88 Oximetry Constitutional: no acute distress, alert (obese), other (Intubated on mechanical ventilator.) Eyes: non-icteric ENT: oropharynx moist, other (Orally intubated) Neck: supple Effort: normal, mildly labored, other (Patient has severe subcutaneous emphysema of the chest wall. Bilateral chest tubes noted. No air leak on the right. Air leak present on the left chest tube) Ascultation: Bilateral: clear, diminished breath sounds (anteriorly), other (Crunching noises bilaterally from subcutaneous emphysema) Cardiovascular: regular rate and rhythm (no mrg) Gastrointestinal: normoactive bowel sounds, soft, non-tender, non-distended, other (Subcutaneous emphysema noted) Integumentary: normal Extremities: no cyanosis, no edema, pink and warm Neurologic: normal mental status, non-focal exam Psychiatric: mood appropriate, affect normal CBC and BMP: 01/10/21 12:29 01/10/21 04:00 ABG, PT/INR, D-dimer: ABG ABG pH 7.235 (7.320-7.450) L 01/10/21 03:35 POC ABG pCO2 67.7 mmHg (32.0-48.0) H 01/10/21 03:35 POC ABG pO2 49.1 mmHg (83-108) L 01/10/21 03:35 POC ABG HCO3 28.0 01/10/21 03:35 ABG O2 Saturation 79.1 (0-100) 01/10/21 03:35 PT/INR, D-dimer PT 14.0 Sec. (12.2-14.9) 01/08/21 11:50 INR 1.09 (0.87-1.13) 01/08/21 11:50 D-Dimer 1259.33 ng/mlDDU (0-234) H 01/03/21 16:00 Abnormal lab findings: Abnormal Labs 12/20/20 12/20/20 12/20/20 19:27 19:27 19:27 WBC 2.9 L RBC Hct MCV MCHC Plt Count 116 L Lymph % (Auto) 41.2 H [place] % (Auto) 13.2 H Lymph # (Auto) Seg Neutrophils % Seg Neuts % (Manual) Lymphocytes % (Manual) Nucleated RBC % Seg Neutrophils # 1.3 L Seg Neutrophils # Man Lymphocytes # (Manual) Monocytes # (Manual) D-Dimer 260.58 H Heparin Anti-Xa Level ABG pH POC ABG pCO2 POC ABG pO2 ABG Hemoglobin ABG Oxyhemoglobin ABG Sodium ABG Potassium ABG Chloride ABG Glucose Carboxyhemoglobin Sodium 135 L Potassium Chloride 96.1 L Carbon Dioxide BUN 23 H Creatinine 1.4 H Glucose 295 H POC Glucose Hemoglobin A1c Calcium 8.3 L Phosphorus Magnesium Ferritin Total Bilirubin AST 125 H ALT 96 H Alkaline Phosphatase 323 H Lactate Dehydrogenase C-Reactive Protein Total Protein 8.7 H Albumin 3.7 L Arterial Blood Glucose Arterial Blood Ionized Calcium Urine Creatinine Coronavirus (PCR) 12/20/20 12/20/20 12/21/20 19:43 19:43 05:50 WBC RBC Hct MCV MCHC Plt Count Lymph % (Auto) [place] % (Auto) Lymph # (Auto) Seg Neutrophils % Seg Neuts % (Manual) Lymphocytes % (Manual) Nucleated RBC % Seg Neutrophils # Seg Neutrophils # Man Lymphocytes # (Manual) Monocytes # (Manual) D-Dimer Heparin Anti-Xa Level ABG pH POC ABG pCO2 POC ABG pO2 ABG Hemoglobin ABG Oxyhemoglobin ABG Sodium ABG Potassium ABG Chloride ABG Glucose Carboxyhemoglobin Sodium Potassium Chloride Carbon Dioxide BUN Creatinine Glucose 297 H POC Glucose Hemoglobin A1c 10.3 H Calcium Phosphorus Magnesium Ferritin 1420.0 H Total Bilirubin AST ALT Alkaline Phosphatase Lactate Dehydrogenase 491 H C-Reactive Protein 5.50 H Total Protein Albumin Arterial Blood Glucose Arterial Blood Ionized Calcium Urine Creatinine Coronavirus (PCR) 12/21/20 12/21/20 12/21/20 05:50 05:50 08:04 WBC 1.6 L* RBC 3.40 L Hct MCV MCHC Plt Count 104 L Lymph % (Auto) [place] % (Auto) Lymph # (Auto) Seg Neutrophils % Seg Neuts % (Manual) 82.0 H Lymphocytes % (Manual) Nucleated RBC % Seg Neutrophils # Seg Neutrophils # Man 1.3 L Lymphocytes # (Manual) 0.3 L Monocytes # (Manual) D-Dimer Heparin Anti-Xa Level ABG pH POC ABG pCO2 POC ABG pO2 ABG Hemoglobin ABG Oxyhemoglobin ABG Sodium ABG Potassium ABG Chloride ABG Glucose Carboxyhemoglobin Sodium 132 L Potassium 5.7 H D Chloride 95.7 L Carbon Dioxide BUN 33 H Creatinine 1.7 H Glucose 500 H POC Glucose 483 H Hemoglobin A1c Calcium 7.7 L Phosphorus Magnesium Ferritin Total Bilirubin AST ALT Alkaline Phosphatase Lactate Dehydrogenase C-Reactive Protein Total Protein Albumin Arterial Blood Glucose Arterial Blood Ionized Calcium Urine Creatinine Coronavirus (PCR) 12/21/20 12/21/20 12/21/20 10:28 12:05 16:54 WBC RBC Hct MCV MCHC Plt Count Lymph % (Auto) [place] % (Auto) Lymph # (Auto) Seg Neutrophils % Seg Neuts % (Manual) Lymphocytes % (Manual) Nucleated RBC % Seg Neutrophils # Seg Neutrophils # Man Lymphocytes # (Manual) Monocytes # (Manual) D-Dimer Heparin Anti-Xa Level ABG pH POC ABG pCO2 POC ABG pO2 ABG Hemoglobin ABG Oxyhemoglobin ABG Sodium ABG Potassium ABG Chloride ABG Glucose Carboxyhemoglobin Sodium Potassium Chloride Carbon Dioxide BUN Creatinine Glucose POC Glucose 482 H 374 H Hemoglobin A1c Calcium Phosphorus Magnesium Ferritin Total Bilirubin AST ALT Alkaline Phosphatase Lactate Dehydrogenase C-Reactive Protein Total Protein Albumin Arterial Blood Glucose Arterial Blood Ionized Calcium Urine Creatinine Coronavirus (PCR) Positive A 12/21/20 12/21/20 12/22/20 18:24 22:12 03:00 WBC RBC Hct MCV MCHC Plt Count Lymph % (Auto) [place] % (Auto) Lymph # (Auto) Seg Neutrophils % Seg Neuts % (Manual) Lymphocytes % (Manual) Nucleated RBC % Seg Neutrophils # Seg Neutrophils # Man Lymphocytes # (Manual) Monocytes # (Manual) D-Dimer Heparin Anti-Xa Level ABG pH POC ABG pCO2 POC ABG pO2 ABG Hemoglobin ABG Oxyhemoglobin ABG Sodium ABG Potassium ABG Chloride ABG Glucose Carboxyhemoglobin Sodium 131 L Potassium Chloride 95.2 L Carbon Dioxide BUN 37 H Creatinine 1.4 H Glucose 417 H POC Glucose 358 H Hemoglobin A1c Calcium 7.5 L Phosphorus Magnesium Ferritin Total Bilirubin AST 82 H ALT 69 H Alkaline Phosphatase 262 H Lactate Dehydrogenase C-Reactive Protein Total Protein Albumin 3.0 L Arterial Blood Glucose Arterial Blood Ionized Calcium Urine Creatinine 117.9 H Coronavirus (PCR) 12/22/20 12/22/20 12/22/20 05:29 08:19 11:18 WBC RBC Hct MCV MCHC Plt Count Lymph % (Auto) [place] % (Auto) Lymph # (Auto) Seg Neutrophils % Seg Neuts % (Manual) Lymphocytes % (Manual) Nucleated RBC % Seg Neutrophils # Seg Neutrophils # Man Lymphocytes # (Manual) Monocytes # (Manual) D-Dimer Heparin Anti-Xa Level ABG pH POC ABG pCO2 POC ABG pO2 ABG Hemoglobin ABG Oxyhemoglobin ABG Sodium ABG Potassium ABG Chloride ABG Glucose Carboxyhemoglobin Sodium Potassium Chloride Carbon Dioxide BUN 34 H Creatinine 1.3 H Glucose 169 H POC Glucose 136 H 132 H Hemoglobin A1c Calcium 7.5 L Phosphorus Magnesium Ferritin Total Bilirubin AST 74 H ALT 60 H Alkaline Phosphatase 249 H Lactate Dehydrogenase C-Reactive Protein Total Protein Albumin 3.1 L Arterial Blood Glucose Arterial Blood Ionized Calcium Urine Creatinine Coronavirus (PCR) 12/22/20 12/22/20 12/22/20 14:18 14:18 16:36 WBC RBC Hct MCV MCHC Plt Count Lymph % (Auto) [place] % (Auto) Lymph # (Auto) Seg Neutrophils % Seg Neuts % (Manual) Lymphocytes % (Manual) Nucleated RBC % Seg Neutrophils # Seg Neutrophils # Man Lymphocytes # (Manual) Monocytes # (Manual) D-Dimer Heparin Anti-Xa Level ABG pH POC ABG pCO2 POC ABG pO2 ABG Hemoglobin ABG Oxyhemoglobin ABG Sodium ABG Potassium ABG Chloride ABG Glucose Carboxyhemoglobin Sodium Potassium Chloride Carbon Dioxide BUN Creatinine Glucose POC Glucose 440 H Hemoglobin A1c Calcium Phosphorus Magnesium Ferritin 1295.0 H Total Bilirubin AST ALT Alkaline Phosphatase Lactate Dehydrogenase 620 H C-Reactive Protein 2.70 H Total Protein Albumin Arterial Blood Glucose Arterial Blood Ionized Calcium Urine Creatinine Coronavirus (PCR) 12/22/20 12/23/20 12/23/20 21:07 08:09 11:30 WBC RBC Hct MCV MCHC Plt Count Lymph % (Auto) [place] % (Auto) Lymph # (Auto) Seg Neutrophils % Seg Neuts % (Manual) Lymphocytes % (Manual) Nucleated RBC % Seg Neutrophils # Seg Neutrophils # Man Lymphocytes # (Manual) Monocytes # (Manual) D-Dimer Heparin Anti-Xa Level ABG pH POC ABG pCO2 POC ABG pO2 ABG Hemoglobin ABG Oxyhemoglobin ABG Sodium ABG Potassium ABG Chloride ABG Glucose Carboxyhemoglobin Sodium Potassium Chloride Carbon Dioxide BUN Creatinine Glucose POC Glucose 493 H 156 H 185 H Hemoglobin A1c Calcium Phosphorus Magnesium Ferritin Total Bilirubin AST ALT Alkaline Phosphatase Lactate Dehydrogenase C-Reactive Protein Total Protein Albumin Arterial Blood Glucose Arterial Blood Ionized Calcium Urine Creatinine Coronavirus (PCR) 12/23/20 12/23/20 12/23/20 14:09 14:09 16:26 WBC 1.8 L* RBC 3.45 L Hct MCV MCHC Plt Count 114 L Lymph % (Auto) [place] % (Auto) Lymph # (Auto) Seg Neutrophils % Seg Neuts % (Manual) 87.0 H Lymphocytes % (Manual) 3.0 L Nucleated RBC % 1.0 H Seg Neutrophils # Seg Neutrophils # Man 1.6 L Lymphocytes # (Manual) 0.1 L Monocytes # (Manual) D-Dimer Heparin Anti-Xa Level ABG pH POC ABG pCO2 POC ABG pO2 ABG Hemoglobin ABG Oxyhemoglobin ABG Sodium ABG Potassium ABG Chloride ABG Glucose Carboxyhemoglobin Sodium Potassium Chloride Carbon Dioxide BUN 19 H Creatinine Glucose 292 H POC Glucose 351 H Hemoglobin A1c Calcium 7.4 L Phosphorus Magnesium Ferritin Total Bilirubin AST 71 H ALT Alkaline Phosphatase 264 H Lactate Dehydrogenase C-Reactive Protein Total Protein Albumin 3.0 L Arterial Blood Glucose Arterial Blood Ionized Calcium Urine Creatinine Coronavirus (PCR) 12/23/20 12/24/20 12/24/20 21:11 08:21 11:58 WBC RBC Hct MCV MCHC Plt Count Lymph % (Auto) [place] % (Auto) Lymph # (Auto) Seg Neutrophils % Seg Neuts % (Manual) Lymphocytes % (Manual) Nucleated RBC % Seg Neutrophils # Seg Neutrophils # Man Lymphocytes # (Manual) Monocytes # (Manual) D-Dimer Heparin Anti-Xa Level ABG pH POC ABG pCO2 POC ABG pO2 ABG Hemoglobin ABG Oxyhemoglobin ABG Sodium ABG Potassium ABG Chloride ABG Glucose Carboxyhemoglobin Sodium Potassium Chloride Carbon Dioxide BUN Creatinine Glucose POC Glucose 288 H 286 H 277 H Hemoglobin A1c Calcium Phosphorus Magnesium Ferritin Total Bilirubin AST ALT Alkaline Phosphatase Lactate Dehydrogenase C-Reactive Protein Total Protein Albumin Arterial Blood Glucose Arterial Blood Ionized Calcium Urine Creatinine Coronavirus (PCR) 12/24/20 12/24/20 12/24/20 12:29 12:29 16:05 WBC 2.5 L RBC 3.49 L Hct MCV MCHC 35 H Plt Count 132 L Lymph % (Auto) [place] % (Auto) 7.6 H Lymph # (Auto) 0.4 L Seg Neutrophils % 74.7 H Seg Neuts % (Manual) Lymphocytes % (Manual) Nucleated RBC % Seg Neutrophils # Seg Neutrophils # Man Lymphocytes # (Manual) Monocytes # (Manual) D-Dimer Heparin Anti-Xa Level ABG pH POC ABG pCO2 POC ABG pO2 ABG Hemoglobin ABG Oxyhemoglobin ABG Sodium ABG Potassium ABG Chloride ABG Glucose Carboxyhemoglobin Sodium Potassium Chloride Carbon Dioxide BUN Creatinine Glucose 256 H POC Glucose 282 H Hemoglobin A1c Calcium 7.8 L Phosphorus Magnesium Ferritin Total Bilirubin AST 50 H ALT Alkaline Phosphatase 262 H Lactate Dehydrogenase C-Reactive Protein Total Protein Albumin 2.8 L Arterial Blood Glucose Arterial Blood Ionized Calcium Urine Creatinine Coronavirus (PCR) 12/24/20 12/25/20 12/25/20 22:01 07:58 11:38 WBC RBC Hct MCV MCHC Plt Count Lymph % (Auto) [place] % (Auto) Lymph # (Auto) Seg Neutrophils % Seg Neuts % (Manual) Lymphocytes % (Manual) Nucleated RBC % Seg Neutrophils # Seg Neutrophils # Man Lymphocytes # (Manual) Monocytes # (Manual) D-Dimer Heparin Anti-Xa Level ABG pH POC ABG pCO2 POC ABG pO2 ABG Hemoglobin ABG Oxyhemoglobin ABG Sodium ABG Potassium ABG Chloride ABG Glucose Carboxyhemoglobin Sodium Potassium Chloride Carbon Dioxide BUN Creatinine Glucose POC Glucose 366 H 278 H 325 H Hemoglobin A1c Calcium Phosphorus Magnesium Ferritin Total Bilirubin AST ALT Alkaline Phosphatase Lactate Dehydrogenase C-Reactive Protein Total Protein Albumin Arterial Blood Glucose Arterial Blood Ionized Calcium Urine Creatinine Coronavirus (PCR) 12/25/20 12/25/20 12/26/20 15:47 21:31 04:29 WBC RBC Hct MCV MCHC Plt Count Lymph % (Auto) [place] % (Auto) Lymph # (Auto) Seg Neutrophils % Seg Neuts % (Manual) Lymphocytes % (Manual) Nucleated RBC % Seg Neutrophils # Seg Neutrophils # Man Lymphocytes # (Manual) Monocytes # (Manual) D-Dimer Heparin Anti-Xa Level ABG pH POC ABG pCO2 POC ABG pO2 ABG Hemoglobin ABG Oxyhemoglobin ABG Sodium ABG Potassium ABG Chloride ABG Glucose Carboxyhemoglobin Sodium Potassium Chloride Carbon Dioxide BUN 22 H Creatinine Glucose 327 H POC Glucose 316 H 339 H Hemoglobin A1c Calcium 7.9 L Phosphorus Magnesium Ferritin Total Bilirubin AST ALT Alkaline Phosphatase Lactate Dehydrogenase C-Reactive Protein Total Protein Albumin Arterial Blood Glucose Arterial Blood Ionized Calcium Urine Creatinine Coronavirus (PCR) 12/26/20 12/26/20 12/26/20 07:42 11:08 11:08 WBC RBC Hct MCV MCHC Plt Count Lymph % (Auto) [place] % (Auto) Lymph # (Auto) Seg Neutrophils % Seg Neuts % (Manual) Lymphocytes % (Manual) Nucleated RBC % Seg Neutrophils # Seg Neutrophils # Man Lymphocytes # (Manual) Monocytes # (Manual) D-Dimer 1954.54 H Heparin Anti-Xa Level ABG pH POC ABG pCO2 POC ABG pO2 ABG Hemoglobin ABG Oxyhemoglobin ABG Sodium ABG Potassium ABG Chloride ABG Glucose Carboxyhemoglobin Sodium Potassium Chloride Carbon Dioxide BUN Creatinine Glucose POC Glucose 353 H Hemoglobin A1c Calcium Phosphorus Magnesium Ferritin 932.1 H Total Bilirubin AST ALT Alkaline Phosphatase Lactate Dehydrogenase C-Reactive Protein Total Protein Albumin Arterial Blood Glucose Arterial Blood Ionized Calcium Urine Creatinine Coronavirus (PCR) 12/26/20 12/26/20 12/26/20 11:08 11:57 16:40 WBC RBC Hct MCV MCHC Plt Count Lymph % (Auto) [place] % (Auto) Lymph # (Auto) Seg Neutrophils % Seg Neuts % (Manual) Lymphocytes % (Manual) Nucleated RBC % Seg Neutrophils # Seg Neutrophils # Man Lymphocytes # (Manual) Monocytes # (Manual) D-Dimer Heparin Anti-Xa Level ABG pH POC ABG pCO2 POC ABG pO2 ABG Hemoglobin ABG Oxyhemoglobin ABG Sodium ABG Potassium ABG Chloride ABG Glucose Carboxyhemoglobin Sodium Potassium Chloride Carbon Dioxide BUN Creatinine Glucose POC Glucose 318 H 352 H Hemoglobin A1c Calcium Phosphorus Magnesium Ferritin Total Bilirubin AST ALT Alkaline Phosphatase Lactate Dehydrogenase 698 H C-Reactive Protein 3.70 H Total Protein Albumin Arterial Blood Glucose Arterial Blood Ionized Calcium Urine Creatinine Coronavirus (PCR) 12/26/20 12/27/20 12/27/20 21:29 04:25 04:25 WBC RBC Hct MCV MCHC Plt Count Lymph % (Auto) 6.4 L [place] % (Auto) 7.5 H Lymph # (Auto) 0.5 L Seg Neutrophils % 85.9 H Seg Neuts % (Manual) Lymphocytes % (Manual) Nucleated RBC % Seg Neutrophils # Seg Neutrophils # Man Lymphocytes # (Manual) Monocytes # (Manual) D-Dimer Heparin Anti-Xa Level ABG pH POC ABG pCO2 POC ABG pO2 ABG Hemoglobin ABG Oxyhemoglobin ABG Sodium ABG Potassium ABG Chloride ABG Glucose Carboxyhemoglobin Sodium Potassium 5.4 H D Chloride Carbon Dioxide BUN 30 H Creatinine Glucose 273 H POC Glucose 376 H Hemoglobin A1c Calcium 8.1 L Phosphorus Magnesium Ferritin Total Bilirubin AST ALT Alkaline Phosphatase 242 H Lactate Dehydrogenase C-Reactive Protein Total Protein Albumin 2.7 L Arterial Blood Glucose Arterial Blood Ionized Calcium Urine Creatinine Coronavirus (PCR) 12/27/20 12/27/20 12/27/20 08:05 11:39 17:28 WBC RBC Hct MCV MCHC Plt Count Lymph % (Auto) [place] % (Auto) Lymph # (Auto) Seg Neutrophils % Seg Neuts % (Manual) Lymphocytes % (Manual) Nucleated RBC % Seg Neutrophils # Seg Neutrophils # Man Lymphocytes # (Manual) Monocytes # (Manual) D-Dimer Heparin Anti-Xa Level ABG pH POC ABG pCO2 POC ABG pO2 ABG Hemoglobin ABG Oxyhemoglobin ABG Sodium ABG Potassium ABG Chloride ABG Glucose Carboxyhemoglobin Sodium Potassium Chloride Carbon Dioxide BUN Creatinine Glucose POC Glucose 287 H 359 H 490 H Hemoglobin A1c Calcium Phosphorus Magnesium Ferritin Total Bilirubin AST ALT Alkaline Phosphatase Lactate Dehydrogenase C-Reactive Protein Total Protein Albumin Arterial Blood Glucose Arterial Blood Ionized Calcium Urine Creatinine Coronavirus (PCR) 12/27/20 12/27/20 12/28/20 21:43 21:53 04:41 WBC RBC Hct MCV MCHC Plt Count Lymph % (Auto) [place] % (Auto) Lymph # (Auto) Seg Neutrophils % Seg Neuts % (Manual) Lymphocytes % (Manual) Nucleated RBC % Seg Neutrophils # Seg Neutrophils # Man Lymphocytes # (Manual) Monocytes # (Manual) D-Dimer Heparin Anti-Xa Level ABG pH POC ABG pCO2 POC ABG pO2 ABG Hemoglobin ABG Oxyhemoglobin ABG Sodium ABG Potassium ABG Chloride ABG Glucose Carboxyhemoglobin Sodium Potassium Chloride Carbon Dioxide 31 H BUN 35 H Creatinine Glucose 328 H POC Glucose 503 H 438 H Hemoglobin A1c Calcium Phosphorus Magnesium Ferritin Total Bilirubin AST ALT Alkaline Phosphatase Lactate Dehydrogenase C-Reactive Protein Total Protein Albumin Arterial Blood Glucose Arterial Blood Ionized Calcium Urine Creatinine Coronavirus (PCR) 12/28/20 12/28/20 12/28/20 07:58 11:40 15:43 WBC RBC Hct MCV MCHC Plt Count Lymph % (Auto) [place] % (Auto) Lymph # (Auto) Seg Neutrophils % Seg Neuts % (Manual) Lymphocytes % (Manual) Nucleated RBC % Seg Neutrophils # Seg Neutrophils # Man Lymphocytes # (Manual) Monocytes # (Manual) D-Dimer 4626.15 H Heparin Anti-Xa Level ABG pH POC ABG pCO2 POC ABG pO2 ABG Hemoglobin ABG Oxyhemoglobin ABG Sodium ABG Potassium ABG Chloride ABG Glucose Carboxyhemoglobin Sodium Potassium Chloride Carbon Dioxide BUN Creatinine Glucose POC Glucose 321 H 455 H Hemoglobin A1c Calcium Phosphorus Magnesium Ferritin Total Bilirubin AST ALT Alkaline Phosphatase Lactate Dehydrogenase C-Reactive Protein Total Protein Albumin Arterial Blood Glucose Arterial Blood Ionized Calcium Urine Creatinine Coronavirus (PCR) 12/28/20 12/28/20 12/28/20 15:43 15:43 17:10 WBC RBC Hct MCV MCHC Plt Count Lymph % (Auto) [place] % (Auto) Lymph # (Auto) Seg Neutrophils % Seg Neuts % (Manual) Lymphocytes % (Manual) Nucleated RBC % Seg Neutrophils # Seg Neutrophils # Man Lymphocytes # (Manual) Monocytes # (Manual) D-Dimer Heparin Anti-Xa Level ABG pH POC ABG pCO2 POC ABG pO2 ABG Hemoglobin ABG Oxyhemoglobin ABG Sodium ABG Potassium ABG Chloride ABG Glucose Carboxyhemoglobin Sodium Potassium Chloride Carbon Dioxide BUN Creatinine Glucose POC Glucose 291 H Hemoglobin A1c Calcium Phosphorus Magnesium Ferritin 1030.0 H Total Bilirubin AST ALT Alkaline Phosphatase Lactate Dehydrogenase 838 H C-Reactive Protein Total Protein Albumin Arterial Blood Glucose Arterial Blood Ionized Calcium Urine Creatinine Coronavirus (PCR) 12/28/20 12/29/20 12/29/20 21:42 05:12 08:25 WBC RBC Hct MCV MCHC Plt Count Lymph % (Auto) [place] % (Auto) Lymph # (Auto) Seg Neutrophils % Seg Neuts % (Manual) Lymphocytes % (Manual) Nucleated RBC % Seg Neutrophils # Seg Neutrophils # Man Lymphocytes # (Manual) Monocytes # (Manual) D-Dimer Heparin Anti-Xa Level ABG pH POC ABG pCO2 POC ABG pO2 ABG Hemoglobin ABG Oxyhemoglobin ABG Sodium ABG Potassium ABG Chloride ABG Glucose Carboxyhemoglobin Sodium 146 H Potassium Chloride Carbon Dioxide 32 H BUN 34 H Creatinine Glucose 126 H POC Glucose 240 H 176 H Hemoglobin A1c Calcium Phosphorus Magnesium Ferritin Total Bilirubin AST ALT Alkaline Phosphatase Lactate Dehydrogenase C-Reactive Protein Total Protein Albumin Arterial Blood Glucose Arterial Blood Ionized Calcium Urine Creatinine Coronavirus (PCR) 12/29/20 12/29/20 12/29/20 11:24 16:49 21:39 WBC RBC Hct MCV MCHC Plt Count Lymph % (Auto) [place] % (Auto) Lymph # (Auto) Seg Neutrophils % Seg Neuts % (Manual) Lymphocytes % (Manual) Nucleated RBC % Seg Neutrophils # Seg Neutrophils # Man Lymphocytes # (Manual) Monocytes # (Manual) D-Dimer Heparin Anti-Xa Level ABG pH POC ABG pCO2 POC ABG pO2 ABG Hemoglobin ABG Oxyhemoglobin ABG Sodium ABG Potassium ABG Chloride ABG Glucose Carboxyhemoglobin Sodium Potassium Chloride Carbon Dioxide BUN Creatinine Glucose POC Glucose 209 H 226 H 169 H Hemoglobin A1c Calcium Phosphorus Magnesium Ferritin Total Bilirubin AST ALT Alkaline Phosphatase Lactate Dehydrogenase C-Reactive Protein Total Protein Albumin Arterial Blood Glucose Arterial Blood Ionized Calcium Urine Creatinine Coronavirus (PCR) 12/30/20 12/30/20 12/30/20 07:34 12:17 16:29 WBC RBC Hct MCV MCHC Plt Count Lymph % (Auto) [place] % (Auto) Lymph # (Auto) Seg Neutrophils % Seg Neuts % (Manual) Lymphocytes % (Manual) Nucleated RBC % Seg Neutrophils # Seg Neutrophils # Man Lymphocytes # (Manual) Monocytes # (Manual) D-Dimer Heparin Anti-Xa Level ABG pH POC ABG pCO2 POC ABG pO2 ABG Hemoglobin ABG Oxyhemoglobin ABG Sodium ABG Potassium ABG Chloride ABG Glucose Carboxyhemoglobin Sodium Potassium Chloride Carbon Dioxide BUN Creatinine Glucose POC Glucose 206 H 261 H 229 H Hemoglobin A1c Calcium Phosphorus Magnesium Ferritin Total Bilirubin AST ALT Alkaline Phosphatase Lactate Dehydrogenase C-Reactive Protein Total Protein Albumin Arterial Blood Glucose Arterial Blood Ionized Calcium Urine Creatinine Coronavirus (PCR) 12/30/20 12/30/20 12/31/20 18:03 23:13 08:43 WBC RBC Hct MCV MCHC Plt Count Lymph % (Auto) [place] % (Auto) Lymph # (Auto) Seg Neutrophils % Seg Neuts % (Manual) Lymphocytes % (Manual) Nucleated RBC % Seg Neutrophils # Seg Neutrophils # Man Lymphocytes # (Manual) Monocytes # (Manual) D-Dimer Heparin Anti-Xa Level ABG pH 7.454 H POC ABG pCO2 49.7 H POC ABG pO2 59.0 L ABG Hemoglobin ABG Oxyhemoglobin 88.6 L ABG Sodium 146.4 H ABG Potassium ABG Chloride ABG Glucose 252 H Carboxyhemoglobin Sodium Potassium Chloride Carbon Dioxide BUN Creatinine Glucose POC Glucose 188 H 191 H Hemoglobin A1c Calcium Phosphorus Magnesium Ferritin Total Bilirubin AST ALT Alkaline Phosphatase Lactate Dehydrogenase C-Reactive Protein Total Protein Albumin Arterial Blood Glucose 252 H Arterial Blood Ionized Calcium 4.5 L Urine Creatinine Coronavirus (PCR) 12/31/20 12/31/20 12/31/20 11:57 16:57 21:37 WBC RBC Hct MCV MCHC Plt Count Lymph % (Auto) [place] % (Auto) Lymph # (Auto) Seg Neutrophils % Seg Neuts % (Manual) Lymphocytes % (Manual) Nucleated RBC % Seg Neutrophils # Seg Neutrophils # Man Lymphocytes # (Manual) Monocytes # (Manual) D-Dimer Heparin Anti-Xa Level ABG pH POC ABG pCO2 POC ABG pO2 ABG Hemoglobin ABG Oxyhemoglobin ABG Sodium ABG Potassium ABG Chloride ABG Glucose Carboxyhemoglobin Sodium Potassium Chloride Carbon Dioxide BUN Creatinine Glucose POC Glucose 185 H 171 H 136 H Hemoglobin A1c Calcium Phosphorus Magnesium Ferritin Total Bilirubin AST ALT Alkaline Phosphatase Lactate Dehydrogenase C-Reactive Protein Total Protein Albumin Arterial Blood Glucose Arterial Blood Ionized Calcium Urine Creatinine Coronavirus (PCR) 01/01/21 01/01/21 01/01/21 08:03 11:55 17:06 WBC RBC Hct MCV MCHC Plt Count Lymph % (Auto) [place] % (Auto) Lymph # (Auto) Seg Neutrophils % Seg Neuts % (Manual) Lymphocytes % (Manual) Nucleated RBC % Seg Neutrophils # Seg Neutrophils # Man Lymphocytes # (Manual) Monocytes # (Manual) D-Dimer Heparin Anti-Xa Level ABG pH POC ABG pCO2 POC ABG pO2 ABG Hemoglobin ABG Oxyhemoglobin ABG Sodium ABG Potassium ABG Chloride ABG Glucose Carboxyhemoglobin Sodium Potassium Chloride Carbon Dioxide BUN Creatinine Glucose POC Glucose 160 H 155 H 193 H Hemoglobin A1c Calcium Phosphorus Magnesium Ferritin Total Bilirubin AST ALT Alkaline Phosphatase Lactate Dehydrogenase C-Reactive Protein Total Protein Albumin Arterial Blood Glucose Arterial Blood Ionized Calcium Urine Creatinine Coronavirus (PCR) 01/01/21 01/02/21 01/02/21 22:20 07:22 11:54 WBC RBC Hct MCV MCHC Plt Count Lymph % (Auto) [place] % (Auto) Lymph # (Auto) Seg Neutrophils % Seg Neuts % (Manual) Lymphocytes % (Manual) Nucleated RBC % Seg Neutrophils # Seg Neutrophils # Man Lymphocytes # (Manual) Monocytes # (Manual) D-Dimer Heparin Anti-Xa Level ABG pH POC ABG pCO2 POC ABG pO2 ABG Hemoglobin ABG Oxyhemoglobin ABG Sodium ABG Potassium ABG Chloride ABG Glucose Carboxyhemoglobin Sodium Potassium Chloride Carbon Dioxide BUN Creatinine Glucose POC Glucose 316 H 274 H 307 H Hemoglobin A1c Calcium Phosphorus Magnesium Ferritin Total Bilirubin AST ALT Alkaline Phosphatase Lactate Dehydrogenase C-Reactive Protein Total Protein Albumin Arterial Blood Glucose Arterial Blood Ionized Calcium Urine Creatinine Coronavirus (PCR) 01/02/21 01/02/21 01/03/21 16:00 21:20 06:48 WBC RBC Hct MCV MCHC Plt Count Lymph % (Auto) [place] % (Auto) Lymph # (Auto) Seg Neutrophils % Seg Neuts % (Manual) Lymphocytes % (Manual) Nucleated RBC % Seg Neutrophils # Seg Neutrophils # Man Lymphocytes # (Manual) Monocytes # (Manual) D-Dimer Heparin Anti-Xa Level ABG pH POC ABG pCO2 POC ABG pO2 ABG Hemoglobin ABG Oxyhemoglobin ABG Sodium ABG Potassium ABG Chloride ABG Glucose Carboxyhemoglobin Sodium 152 H Potassium Chloride 108.8 H Carbon Dioxide 32 H BUN 64 H Creatinine 1.3 H Glucose 180 H POC Glucose 303 H 263 H Hemoglobin A1c Calcium Phosphorus Magnesium Ferritin Total Bilirubin AST ALT Alkaline Phosphatase Lactate Dehydrogenase C-Reactive Protein Total Protein Albumin Arterial Blood Glucose Arterial Blood Ionized Calcium Urine Creatinine Coronavirus (PCR) 01/03/21 01/03/21 01/03/21 08:28 11:44 13:59 WBC RBC Hct MCV MCHC Plt Count Lymph % (Auto) [place] % (Auto) Lymph # (Auto) Seg Neutrophils % Seg Neuts % (Manual) Lymphocytes % (Manual) Nucleated RBC % Seg Neutrophils # Seg Neutrophils # Man Lymphocytes # (Manual) Monocytes # (Manual) D-Dimer Heparin Anti-Xa Level ABG pH POC ABG pCO2 POC ABG pO2 ABG Hemoglobin ABG Oxyhemoglobin ABG Sodium ABG Potassium ABG Chloride ABG Glucose Carboxyhemoglobin Sodium Potassium Chloride Carbon Dioxide BUN Creatinine Glucose POC Glucose 203 H 339 H 362 H Hemoglobin A1c Calcium Phosphorus Magnesium Ferritin Total Bilirubin AST ALT Alkaline Phosphatase Lactate Dehydrogenase C-Reactive Protein Total Protein Albumin Arterial Blood Glucose Arterial Blood Ionized Calcium Urine Creatinine Coronavirus (PCR) 01/03/21 01/03/21 01/03/21 16:00 16:00 16:00 WBC RBC Hct MCV MCHC Plt Count Lymph % (Auto) [place] % (Auto) Lymph # (Auto) Seg Neutrophils % Seg Neuts % (Manual) Lymphocytes % (Manual) Nucleated RBC % Seg Neutrophils # Seg Neutrophils # Man Lymphocytes # (Manual) Monocytes # (Manual) D-Dimer 1259.33 H Heparin Anti-Xa Level ABG pH POC ABG pCO2 POC ABG pO2 ABG Hemoglobin ABG Oxyhemoglobin ABG Sodium ABG Potassium ABG Chloride ABG Glucose Carboxyhemoglobin Sodium Potassium Chloride Carbon Dioxide BUN Creatinine Glucose POC Glucose Hemoglobin A1c Calcium Phosphorus Magnesium Ferritin 1526.0 H Total Bilirubin AST ALT Alkaline Phosphatase Lactate Dehydrogenase 815 H C-Reactive Protein Total Protein Albumin Arterial Blood Glucose Arterial Blood Ionized Calcium Urine Creatinine Coronavirus (PCR) 01/03/21 01/03/21 01/04/21 18:13 21:23 01:46 WBC RBC Hct MCV MCHC Plt Count Lymph % (Auto) [place] % (Auto) Lymph # (Auto) Seg Neutrophils % Seg Neuts % (Manual) Lymphocytes % (Manual) Nucleated RBC % Seg Neutrophils # Seg Neutrophils # Man Lymphocytes # (Manual) Monocytes # (Manual) D-Dimer Heparin Anti-Xa Level ABG pH POC ABG pCO2 POC ABG pO2 ABG Hemoglobin ABG Oxyhemoglobin ABG Sodium ABG Potassium ABG Chloride ABG Glucose Carboxyhemoglobin Sodium Potassium Chloride Carbon Dioxide BUN Creatinine Glucose POC Glucose 349 H 312 H 264 H Hemoglobin A1c Calcium Phosphorus Magnesium Ferritin Total Bilirubin AST ALT Alkaline Phosphatase Lactate Dehydrogenase C-Reactive Protein Total Protein Albumin Arterial Blood Glucose Arterial Blood Ionized Calcium Urine Creatinine Coronavirus (PCR) 01/04/21 01/04/21 01/04/21 05:12 05:35 07:36 WBC RBC Hct MCV MCHC Plt Count Lymph % (Auto) [place] % (Auto) Lymph # (Auto) Seg Neutrophils % Seg Neuts % (Manual) Lymphocytes % (Manual) Nucleated RBC % Seg Neutrophils # Seg Neutrophils # Man Lymphocytes # (Manual) Monocytes # (Manual) D-Dimer Heparin Anti-Xa Level ABG pH POC ABG pCO2 POC ABG pO2 ABG Hemoglobin ABG Oxyhemoglobin ABG Sodium ABG Potassium ABG Chloride ABG Glucose Carboxyhemoglobin Sodium 147 H Potassium Chloride Carbon Dioxide 34 H BUN 59 H Creatinine Glucose 208 H POC Glucose 193 H 197 H Hemoglobin A1c Calcium Phosphorus Magnesium 2.60 H Ferritin Total Bilirubin AST ALT Alkaline Phosphatase Lactate Dehydrogenase C-Reactive Protein Total Protein Albumin Arterial Blood Glucose Arterial Blood Ionized Calcium Urine Creatinine Coronavirus (PCR) 01/04/21 01/04/21 01/04/21 11:00 14:10 18:06 WBC RBC Hct MCV MCHC Plt Count Lymph % (Auto) [place] % (Auto) Lymph # (Auto) Seg Neutrophils % Seg Neuts % (Manual) Lymphocytes % (Manual) Nucleated RBC % Seg Neutrophils # Seg Neutrophils # Man Lymphocytes # (Manual) Monocytes # (Manual) D-Dimer Heparin Anti-Xa Level ABG pH POC ABG pCO2 POC ABG pO2 ABG Hemoglobin ABG Oxyhemoglobin ABG Sodium ABG Potassium ABG Chloride ABG Glucose Carboxyhemoglobin Sodium Potassium Chloride Carbon Dioxide BUN Creatinine Glucose POC Glucose 153 H 173 H 194 H Hemoglobin A1c Calcium Phosphorus Magnesium Ferritin Total Bilirubin AST ALT Alkaline Phosphatase Lactate Dehydrogenase C-Reactive Protein Total Protein Albumin Arterial Blood Glucose Arterial Blood Ionized Calcium Urine Creatinine Coronavirus (PCR) 01/04/21 01/05/21 01/05/21 21:36 01:38 04:09 WBC RBC Hct MCV MCHC Plt Count Lymph % (Auto) [place] % (Auto) Lymph # (Auto) Seg Neutrophils % Seg Neuts % (Manual) Lymphocytes % (Manual) Nucleated RBC % Seg Neutrophils # Seg Neutrophils # Man Lymphocytes # (Manual) Monocytes # (Manual) D-Dimer Heparin Anti-Xa Level ABG pH POC ABG pCO2 POC ABG pO2 ABG Hemoglobin ABG Oxyhemoglobin ABG Sodium ABG Potassium ABG Chloride ABG Glucose Carboxyhemoglobin Sodium 146 H Potassium Chloride Carbon Dioxide BUN 55 H Creatinine Glucose 241 H POC Glucose 232 H 232 H Hemoglobin A1c Calcium 8.3 L Phosphorus Magnesium 2.70 H Ferritin Total Bilirubin AST ALT 58 H Alkaline Phosphatase 177 H Lactate Dehydrogenase C-Reactive Protein Total Protein Albumin 2.9 L Arterial Blood Glucose Arterial Blood Ionized Calcium Urine Creatinine Coronavirus (PCR) 01/05/21 01/05/21 01/05/21 05:56 08:22 11:46 WBC RBC Hct MCV MCHC Plt Count Lymph % (Auto) [place] % (Auto) Lymph # (Auto) Seg Neutrophils % Seg Neuts % (Manual) Lymphocytes % (Manual) Nucleated RBC % Seg Neutrophils # Seg Neutrophils # Man Lymphocytes # (Manual) Monocytes # (Manual) D-Dimer Heparin Anti-Xa Level ABG pH POC ABG pCO2 POC ABG pO2 ABG Hemoglobin ABG Oxyhemoglobin ABG Sodium ABG Potassium ABG Chloride ABG Glucose Carboxyhemoglobin Sodium Potassium Chloride Carbon Dioxide BUN Creatinine Glucose POC Glucose 264 H 213 H 144 H Hemoglobin A1c Calcium Phosphorus Magnesium Ferritin Total Bilirubin AST ALT Alkaline Phosphatase Lactate Dehydrogenase C-Reactive Protein Total Protein Albumin Arterial Blood Glucose Arterial Blood Ionized Calcium Urine Creatinine Coronavirus (PCR) 01/05/21 01/05/21 01/05/21 14:41 15:38 18:41 WBC RBC Hct MCV MCHC Plt Count Lymph % (Auto) [place] % (Auto) Lymph # (Auto) Seg Neutrophils % Seg Neuts % (Manual) Lymphocytes % (Manual) Nucleated RBC % Seg Neutrophils # Seg Neutrophils # Man Lymphocytes # (Manual) Monocytes # (Manual) D-Dimer Heparin Anti-Xa Level ABG pH 7.263 L 7.3 L POC ABG pCO2 50.3 H 60.0 H POC ABG pO2 66.6 L 79.6 L ABG Hemoglobin ABG Oxyhemoglobin 87.9 L 92.2 L ABG Sodium 145.8 H ABG Potassium ABG Chloride ABG Glucose 306 H 353 H Carboxyhemoglobin Sodium Potassium Chloride Carbon Dioxide BUN Creatinine Glucose POC Glucose 307 H Hemoglobin A1c Calcium Phosphorus Magnesium Ferritin Total Bilirubin AST ALT Alkaline Phosphatase Lactate Dehydrogenase C-Reactive Protein Total Protein Albumin Arterial Blood Glucose 306 H 353 H Arterial Blood Ionized Calcium 4.4 L Urine Creatinine Coronavirus (PCR) 01/05/21 01/06/21 01/06/21 21:16 01:31 04:45 WBC RBC Hct MCV MCHC Plt Count Lymph % (Auto) [place] % (Auto) Lymph # (Auto) Seg Neutrophils % Seg Neuts % (Manual) Lymphocytes % (Manual) Nucleated RBC % Seg Neutrophils # Seg Neutrophils # Man Lymphocytes # (Manual) Monocytes # (Manual) D-Dimer Heparin Anti-Xa Level ABG pH 7.237 L POC ABG pCO2 68.9 H POC ABG pO2 ABG Hemoglobin ABG Oxyhemoglobin 93.2 L ABG Sodium 145.4 H ABG Potassium ABG Chloride ABG Glucose 152 H Carboxyhemoglobin 1.6 H Sodium Potassium Chloride Carbon Dioxide BUN Creatinine Glucose POC Glucose 256 H 195 H Hemoglobin A1c Calcium Phosphorus Magnesium Ferritin Total Bilirubin AST ALT Alkaline Phosphatase Lactate Dehydrogenase C-Reactive Protein Total Protein Albumin Arterial Blood Glucose 152 H Arterial Blood Ionized Calcium Urine Creatinine Coronavirus (PCR) 01/06/21 01/06/21 01/06/21 05:26 14:49 14:49 WBC 34.5 H RBC Hct 43.8 H MCV 99 H MCHC Plt Count Lymph % (Auto) [place] % (Auto) Lymph # (Auto) Seg Neutrophils % Seg Neuts % (Manual) 93.0 H Lymphocytes % (Manual) 4.0 L Nucleated RBC % Seg Neutrophils # Seg Neutrophils # Man 32.1 H Lymphocytes # (Manual) Monocytes # (Manual) 1.0 H D-Dimer Heparin Anti-Xa Level ABG pH POC ABG pCO2 POC ABG pO2 ABG Hemoglobin ABG Oxyhemoglobin ABG Sodium ABG Potassium ABG Chloride ABG Glucose Carboxyhemoglobin Sodium Potassium Chloride Carbon Dioxide 20 L D BUN 70 H Creatinine 3.2 H D Glucose 108 H POC Glucose 138 H Hemoglobin A1c Calcium Phosphorus 7.70 H D Magnesium 2.60 H Ferritin Total Bilirubin AST 94 H ALT 103 H Alkaline Phosphatase 220 H Lactate Dehydrogenase C-Reactive Protein Total Protein Albumin 2.9 L Arterial Blood Glucose Arterial Blood Ionized Calcium Urine Creatinine Coronavirus (PCR) 01/06/21 01/06/21 01/06/21 17:25 17:41 19:50 WBC RBC Hct MCV MCHC Plt Count Lymph % (Auto) [place] % (Auto) Lymph # (Auto) Seg Neutrophils % Seg Neuts % (Manual) Lymphocytes % (Manual) Nucleated RBC % Seg Neutrophils # Seg Neutrophils # Man Lymphocytes # (Manual) Monocytes # (Manual) D-Dimer Heparin Anti-Xa Level ABG pH 7.079 L POC ABG pCO2 93.7 H POC ABG pO2 79.3 L ABG Hemoglobin ABG Oxyhemoglobin 92.1 L ABG Sodium ABG Potassium 4.8 H ABG Chloride ABG Glucose 196 H Carboxyhemoglobin Sodium Potassium Chloride Carbon Dioxide BUN Creatinine Glucose POC Glucose 165 H 216 H Hemoglobin A1c Calcium Phosphorus Magnesium Ferritin Total Bilirubin AST ALT Alkaline Phosphatase Lactate Dehydrogenase C-Reactive Protein Total Protein Albumin Arterial Blood Glucose 196 H Arterial Blood Ionized Calcium 4.4 L Urine Creatinine Coronavirus (PCR) 01/06/21 01/07/21 01/07/21 23:17 03:32 04:23 WBC RBC Hct MCV MCHC Plt Count Lymph % (Auto) [place] % (Auto) Lymph # (Auto) Seg Neutrophils % Seg Neuts % (Manual) Lymphocytes % (Manual) Nucleated RBC % Seg Neutrophils # Seg Neutrophils # Man Lymphocytes # (Manual) Monocytes # (Manual) D-Dimer Heparin Anti-Xa Level ABG pH 7.298 L POC ABG pCO2 73.2 H POC ABG pO2 75.7 L ABG Hemoglobin ABG Oxyhemoglobin 93.5 L ABG Sodium ABG Potassium ABG Chloride 94.0 L ABG Glucose 404 H Carboxyhemoglobin Sodium Potassium Chloride Carbon Dioxide BUN Creatinine Glucose POC Glucose 326 H 359 H Hemoglobin A1c Calcium Phosphorus Magnesium Ferritin Total Bilirubin AST ALT Alkaline Phosphatase Lactate Dehydrogenase C-Reactive Protein Total Protein Albumin Arterial Blood Glucose 404 H Arterial Blood Ionized Calcium 3.9 L Urine Creatinine Coronavirus (PCR) 01/07/21 01/07/21 01/07/21 07:26 11:10 16:29 WBC RBC Hct MCV MCHC Plt Count Lymph % (Auto) [place] % (Auto) Lymph # (Auto) Seg Neutrophils % Seg Neuts % (Manual) Lymphocytes % (Manual) Nucleated RBC % Seg Neutrophils # Seg Neutrophils # Man Lymphocytes # (Manual) Monocytes # (Manual) D-Dimer Heparin Anti-Xa Level ABG pH POC ABG pCO2 POC ABG pO2 ABG Hemoglobin ABG Oxyhemoglobin ABG Sodium ABG Potassium ABG Chloride ABG Glucose Carboxyhemoglobin Sodium Potassium Chloride Carbon Dioxide BUN Creatinine Glucose POC Glucose 385 H 384 H 250 H Hemoglobin A1c Calcium Phosphorus Magnesium Ferritin Total Bilirubin AST ALT Alkaline Phosphatase Lactate Dehydrogenase C-Reactive Protein Total Protein Albumin Arterial Blood Glucose Arterial Blood Ionized Calcium Urine Creatinine Coronavirus (PCR) 01/07/21 01/07/21 01/07/21 19:45 22:01 22:01 WBC 28.2 H RBC Hct MCV MCHC Plt Count Lymph % (Auto) [place] % (Auto) Lymph # (Auto) Seg Neutrophils % Seg Neuts % (Manual) Lymphocytes % (Manual) Nucleated RBC % Seg Neutrophils # Seg Neutrophils # Man Lymphocytes # (Manual) Monocytes # (Manual) D-Dimer Heparin Anti-Xa Level ABG pH POC ABG pCO2 POC ABG pO2 ABG Hemoglobin ABG Oxyhemoglobin ABG Sodium ABG Potassium ABG Chloride ABG Glucose Carboxyhemoglobin Sodium Potassium Chloride 90.4 L Carbon Dioxide 40 H D BUN 98 H Creatinine 6.2 H D Glucose 187 H POC Glucose 202 H Hemoglobin A1c Calcium 7.3 L Phosphorus Magnesium Ferritin Total Bilirubin AST ALT Alkaline Phosphatase Lactate Dehydrogenase C-Reactive Protein Total Protein Albumin Arterial Blood Glucose Arterial Blood Ionized Calcium Urine Creatinine Coronavirus (PCR) 01/07/21 01/08/21 01/08/21 23:12 03:30 03:31 WBC RBC Hct MCV MCHC Plt Count Lymph % (Auto) [place] % (Auto) Lymph # (Auto) Seg Neutrophils % Seg Neuts % (Manual) Lymphocytes % (Manual) Nucleated RBC % Seg Neutrophils # Seg Neutrophils # Man Lymphocytes # (Manual) Monocytes # (Manual) D-Dimer Heparin Anti-Xa Level ABG pH POC ABG pCO2 63.2 H POC ABG pO2 65.3 L ABG Hemoglobin ABG Oxyhemoglobin 91.8 L ABG Sodium 135.8 L ABG Potassium ABG Chloride 89.0 L ABG Glucose 210 H Carboxyhemoglobin Sodium Potassium Chloride Carbon Dioxide BUN Creatinine Glucose POC Glucose 185 H 195 H Hemoglobin A1c Calcium Phosphorus Magnesium Ferritin Total Bilirubin AST ALT Alkaline Phosphatase Lactate Dehydrogenase C-Reactive Protein Total Protein Albumin Arterial Blood Glucose 210 H Arterial Blood Ionized Calcium Urine Creatinine Coronavirus (PCR) 01/08/21 01/08/21 01/08/21 04:29 04:29 08:07 WBC 34.5 H RBC Hct MCV MCHC Plt Count Lymph % (Auto) [place] % (Auto) Lymph # (Auto) Seg Neutrophils % Seg Neuts % (Manual) 94.0 H Lymphocytes % (Manual) 2.0 L Nucleated RBC % 1.0 H Seg Neutrophils # Seg Neutrophils # Man 32.4 H Lymphocytes # (Manual) 0.7 L Monocytes # (Manual) 1.0 H D-Dimer Heparin Anti-Xa Level ABG pH POC ABG pCO2 POC ABG pO2 ABG Hemoglobin ABG Oxyhemoglobin ABG Sodium ABG Potassium ABG Chloride ABG Glucose Carboxyhemoglobin Sodium Potassium Chloride 89.3 L Carbon Dioxide 39 H BUN 106 H Creatinine 7.0 H Glucose 196 H POC Glucose 171 H Hemoglobin A1c Calcium 7.7 L Phosphorus 6.70 H Magnesium 2.50 H Ferritin Total Bilirubin AST 65 H ALT 88 H Alkaline Phosphatase 188 H Lactate Dehydrogenase C-Reactive Protein Total Protein Albumin 2.9 L Arterial Blood Glucose Arterial Blood Ionized Calcium Urine Creatinine Coronavirus (PCR) 01/08/21 01/08/21 01/08/21 11:38 16:40 18:00 WBC RBC Hct MCV MCHC Plt Count Lymph % (Auto) [place] % (Auto) Lymph # (Auto) Seg Neutrophils % Seg Neuts % (Manual) Lymphocytes % (Manual) Nucleated RBC % Seg Neutrophils # Seg Neutrophils # Man Lymphocytes # (Manual) Monocytes # (Manual) D-Dimer Heparin Anti-Xa Level 1.99 H ABG pH POC ABG pCO2 POC ABG pO2 ABG Hemoglobin ABG Oxyhemoglobin ABG Sodium ABG Potassium ABG Chloride ABG Glucose Carboxyhemoglobin Sodium Potassium Chloride Carbon Dioxide BUN Creatinine Glucose POC Glucose 177 H 174 H Hemoglobin A1c Calcium Phosphorus Magnesium Ferritin Total Bilirubin AST ALT Alkaline Phosphatase Lactate Dehydrogenase C-Reactive Protein Total Protein Albumin Arterial Blood Glucose Arterial Blood Ionized Calcium Urine Creatinine Coronavirus (PCR) 01/08/21 01/09/21 01/09/21 19:46 00:07 02:54 WBC RBC Hct MCV MCHC Plt Count Lymph % (Auto) [place] % (Auto) Lymph # (Auto) Seg Neutrophils % Seg Neuts % (Manual) Lymphocytes % (Manual) Nucleated RBC % Seg Neutrophils # Seg Neutrophils # Man Lymphocytes # (Manual) Monocytes # (Manual) D-Dimer Heparin Anti-Xa Level 2.00 H ABG pH POC ABG pCO2 POC ABG pO2 ABG Hemoglobin ABG Oxyhemoglobin ABG Sodium ABG Potassium ABG Chloride ABG Glucose Carboxyhemoglobin Sodium Potassium Chloride Carbon Dioxide BUN Creatinine Glucose POC Glucose 162 H 141 H Hemoglobin A1c Calcium Phosphorus Magnesium Ferritin Total Bilirubin AST ALT Alkaline Phosphatase Lactate Dehydrogenase C-Reactive Protein Total Protein Albumin Arterial Blood Glucose Arterial Blood Ionized Calcium Urine Creatinine Coronavirus (PCR) 01/09/21 01/09/21 01/09/21 03:31 04:20 08:11 WBC RBC Hct MCV MCHC Plt Count Lymph % (Auto) [place] % (Auto) Lymph # (Auto) Seg Neutrophils % Seg Neuts % (Manual) Lymphocytes % (Manual) Nucleated RBC % Seg Neutrophils # Seg Neutrophils # Man Lymphocytes # (Manual) Monocytes # (Manual) D-Dimer Heparin Anti-Xa Level ABG pH POC ABG pCO2 POC ABG pO2 ABG Hemoglobin ABG Oxyhemoglobin ABG Sodium ABG Potassium ABG Chloride ABG Glucose Carboxyhemoglobin Sodium Potassium Chloride 96.4 L Carbon Dioxide 32 H D BUN 67 H Creatinine 5.8 H Glucose 171 H POC Glucose 159 H 142 H Hemoglobin A1c Calcium 7.9 L Phosphorus Magnesium Ferritin Total Bilirubin 1.70 H AST 94 H ALT 108 H Alkaline Phosphatase 159 H Lactate Dehydrogenase C-Reactive Protein Total Protein 5.3 L Albumin 2.5 L Arterial Blood Glucose Arterial Blood Ionized Calcium Urine Creatinine Coronavirus (PCR) 01/09/21 01/09/21 01/09/21 08:59 11:28 13:10 WBC RBC Hct MCV MCHC Plt Count Lymph % (Auto) [place] % (Auto) Lymph # (Auto) Seg Neutrophils % Seg Neuts % (Manual) Lymphocytes % (Manual) Nucleated RBC % Seg Neutrophils # Seg Neutrophils # Man Lymphocytes # (Manual) Monocytes # (Manual) D-Dimer Heparin Anti-Xa Level 1.54 H ABG pH 7.239 L POC ABG pCO2 67.2 H POC ABG pO2 ABG Hemoglobin 10.5 L ABG Oxyhemoglobin ABG Sodium 134.8 L ABG Potassium ABG Chloride 96.0 L ABG Glucose 154 H Carboxyhemoglobin Sodium Potassium Chloride Carbon Dioxide BUN Creatinine Glucose POC Glucose 135 H Hemoglobin A1c Calcium Phosphorus Magnesium Ferritin Total Bilirubin AST ALT Alkaline Phosphatase Lactate Dehydrogenase C-Reactive Protein Total Protein Albumin Arterial Blood Glucose 154 H Arterial Blood Ionized Calcium Urine Creatinine Coronavirus (PCR) 01/09/21 01/09/21 01/10/21 23:15 23:15 00:58 WBC RBC Hct MCV MCHC Plt Count Lymph % (Auto) [place] % (Auto) Lymph # (Auto) Seg Neutrophils % Seg Neuts % (Manual) Lymphocytes % (Manual) Nucleated RBC % Seg Neutrophils # Seg Neutrophils # Man Lymphocytes # (Manual) Monocytes # (Manual) D-Dimer Heparin Anti-Xa Level 1.05 H ABG pH 7.248 L POC ABG pCO2 58.0 H POC ABG pO2 60.5 L ABG Hemoglobin 9.6 L ABG Oxyhemoglobin 86.9 L ABG Sodium 134.5 L ABG Potassium 4.7 H ABG Chloride 97.0 L ABG Glucose 162 H Carboxyhemoglobin 0.3 L Sodium Potassium Chloride Carbon Dioxide BUN Creatinine Glucose POC Glucose 118 H Hemoglobin A1c Calcium Phosphorus Magnesium Ferritin Total Bilirubin AST ALT Alkaline Phosphatase Lactate Dehydrogenase C-Reactive Protein Total Protein Albumin Arterial Blood Glucose 162 H Arterial Blood Ionized Calcium 3.7 L Urine Creatinine Coronavirus (PCR) 01/10/21 01/10/21 01/10/21 03:29 03:35 04:00 WBC RBC Hct MCV MCHC Plt Count Lymph % (Auto) [place] % (Auto) Lymph # (Auto) Seg Neutrophils % Seg Neuts % (Manual) Lymphocytes % (Manual) Nucleated RBC % Seg Neutrophils # Seg Neutrophils # Man Lymphocytes # (Manual) Monocytes # (Manual) D-Dimer Heparin Anti-Xa Level ABG pH 7.235 L POC ABG pCO2 67.7 H POC ABG pO2 49.1 L ABG Hemoglobin 9.6 L ABG Oxyhemoglobin 78.6 L ABG Sodium 133.5 L ABG Potassium 4.8 H ABG Chloride 96.0 L ABG Glucose 200 H Carboxyhemoglobin 0.3 L Sodium 136 L Potassium Chloride 90.6 L Carbon Dioxide BUN 92 H Creatinine 7.5 H Glucose 196 H POC Glucose 160 H Hemoglobin A1c Calcium 7.0 L Phosphorus Magnesium Ferritin Total Bilirubin 1.30 H AST 107 H ALT 138 H Alkaline Phosphatase 168 H Lactate Dehydrogenase C-Reactive Protein Total Protein 5.3 L Albumin 2.7 L Arterial Blood Glucose 200 H Arterial Blood Ionized Calcium 3.6 L Urine Creatinine Coronavirus (PCR)
[2021-01-10] MEDS: PANTOPRAZOLE 40 MG INJ IV SCH (10:34)
[2021-01-10] MEDS: AYR SALINE NASAL GEL 14.1 GM NS SCH (10:35)
--- NOTE | 2021-01-10 11:08 | Progress Note ---
Assessment and Plan 55 yo F with 1. B/L PTX, pneumomediastinum 2. severe COVID PNA 3. VDRF 4. Interstitial lung disease 5. new onset afib on hepgtt Pt on FIO2 100% and PEEP 18. Pt in critical condition. CXR with b/l chest tubes in place with stable subcuta neous emphysema and no PTX Plan: 1. Vent management per ICU team 2. B/L Chest tube to -[id number] suction 3. Daily CXRs 4. NGT to LIWS 5. PPI BID 6. monitor H/H. Consider holding hepgtt due to bloody NGT and Chest tube output Very guarded to poor prognosis. Discussed with Dr. Silver Thank you for this consultation. Please call with any questions or concerns. Evaluation and treatment of this patient was during the time of the national and state emergency arising from COVID19 coronavirus pandemic. Treatment and procedures performed meet the current and available best practice and guidelines for patient during the COVID pandemic. Subjective Date of service: 01/10/21 Narrative: Pt seen and examined. Episodes of desaturation on vent overnight. Afebrile. Objective Vital Signs - 12hr 01/09/21 01/09/21 01/09/21 23:15 23:30 23:32 Temperature 98.9 F Pulse Rate 75 76 Pulse Rate [ From Monitor] Respiratory 28 H 28 H Rate Blood Pressure 103/50 98/53 O2 Sat by Pulse 94 93 Oximetry 01/09/21 01/09/21 01/09/21 23:45 23:48 23:54 Temperature Pulse Rate 75 75 74 Pulse Rate [ From Monitor] Respiratory 28 H 28 H Rate Blood Pressure 104/53 104/53 108/55 O2 Sat by Pulse 93 95 95 Oximetry 01/10/21 01/10/21 01/10/21 00:00 00:15 00:30 Temperature Pulse Rate 75 78 79 Pulse Rate [ 75 From Monitor] Respiratory 28 H 28 H 28 H Rate Blood Pressure 109/53 107/53 108/54 O2 Sat by Pulse 95 91 89 Oximetry 01/10/21 01/10/21 01/10/21 00:46 01:00 01:15 Temperature Pulse Rate 87 87 82 Pulse Rate [ From Monitor] Respiratory 27 H 28 H 28 H Rate Blood Pressure 185/76 105/61 102/57 O2 Sat by Pulse 78 L 92 94 Oximetry 0501/10/21 01/10/21 01:30 01:45 02:00 Temperature Pulse Rate 80 78 79 Pulse Rate [ From Monitor] Respiratory 28 H 28 H 28 H Rate Blood Pressure 102/57 93/54 96/53 O2 Sat by Pulse 97 97 97 Oximetry 01/10/21 01/10/21 01/10/21 02:15 02:30 02:45 Temperature Pulse Rate 78 76 78 Pulse Rate [ From Monitor] Respiratory 28 H 28 H 28 H Rate Blood Pressure 91/51 101/53 103/55 O2 Sat by Pulse 97 94 91 Oximetry 01/10/21 01/10/21 01/10/21 03:00 03:15 03:30 Temperature Pulse Rate 79 82 87 Pulse Rate [ From Monitor] Respiratory 28 H 28 H 28 H Rate Blood Pressure 96/53 106/61 106/61 O2 Sat by Pulse 89 79 L Oximetry 01/10/21 01/10/21 01/10/21 03:43 03:45 03:55 Temperature 98.9 F Pulse Rate 89 82 Pulse Rate [ From Monitor] Respiratory 28 H Rate Blood Pressure 103/51 115/67 O2 Sat by Pulse 79 L Oximetry 01/10/21 01/10/21 01/10/21 04:00 04:15 04:30 Temperature Pulse Rate 81 79 80 Pulse Rate [ 80 From Monitor] Respiratory 28 H 28 H 28 H Rate Blood Pressure 117/63 105/57 109/60 O2 Sat by Pulse 90 89 89 Oximetry 01/10/21 01/10/21 01/10/21 04:45 05:00 05:15 Temperature Pulse Rate 81 80 80 Pulse Rate [ From Monitor] Respiratory 28 H 28 H 28 H Rate Blood Pressure 111/59 102/61 100/61 O2 Sat by Pulse 87 87 86 Oximetry 01/10/21 01/10/21 01/10/21 05:30 05:45 06:00 Temperature Pulse Rate 80 81 83 Pulse Rate [ From Monitor] Respiratory 28 H 28 H 28 H Rate Blood Pressure 103/61 98/65 108/59 O2 Sat by Pulse 88 85 Oximetry 01/10/21 01/10/21 01/10/21 06:15 06:30 06:45 Temperature Pulse Rate 80 81 81 Pulse Rate [ From Monitor] Respiratory 28 H 28 H 28 H Rate Blood Pressure 107/62 104/61 101/64 O2 Sat by Pulse 87 87 87 Oximetry 01/10/21 01/10/21 01/10/21 07:00 07:15 07:30 Temperature Pulse Rate 81 81 81 Pulse Rate [ From Monitor] Respiratory 28 H 28 H 28 H Rate Blood Pressure 105/58 104/56 97/61 O2 Sat by Pulse 87 88 88 Oximetry 01/10/21 01/10/21 01/10/21 07:45 08:00 08:09 Temperature 98.5 F Pulse Rate 81 82 Pulse Rate [ 82 From Monitor] Respiratory 28 H 28 H Rate Blood Pressure 106/55 O2 Sat by Pulse 88 86 Oximetry 01/10/21 01/10/21 01/10/21 08:15 08:27 08:30 Temperature Pulse Rate 83 86 85 Pulse Rate [ From Monitor] Respiratory 28 H 28 H Rate Blood Pressure 107/54 107/54 114/63 O2 Sat by Pulse 84 86 87 Oximetry 01/10/21 01/10/21 01/10/21 08:45 09:00 09:15 Temperature Pulse Rate 83 81 81 Pulse Rate [ From Monitor] Respiratory 28 H 28 H 28 H Rate Blood Pressure 110/64 104/62 114/54 O2 Sat by Pulse 87 88 Oximetry 01/10/21 01/10/21 01/10/21 09:30 09:45 10:00 Temperature Pulse Rate 81 81 81 Pulse Rate [ From Monitor] Respiratory 28 H 28 H 28 H Rate Blood Pressure 97/59 105/55 105/52 O2 Sat by Pulse 88 89 Oximetry 01/10/21 10:15 Temperature Pulse Rate 79 Pulse Rate [ From Monitor] Respiratory 28 H Rate Blood Pressure 105/52 O2 Sat by Pulse 89 Oximetry - General physical appearance Narrative Exam: Gen.: Intubated, sedated. Does not appear to be in distress. ENT: Trachea midline. ET tube and NG tube in place. NG tube placed to low intermittent wall suction with dark bloody drainage. Significant subcutaneous emphysema involving the face and neck. CV: S1, S2 present. Tachycardia Respiratory: Bilateral chest, diffuse subcutaneous emphysema. B/L chest tubes in place with dark bloody drainage R>L. No air leaks. Tubes are patent. Abdomen: Soft, nondistended, nontender, obese. No rebound, rigidity, guarding Extremities: Generalized edema - Labs 01/08/21 08:26 01/10/21 04:00 Diabetes panel 01/10/21 Range/Units 04:00 Sodium 136 L (137-145) mmol/L Potassium 4.9 (3.6-5.0) mmol/L Chloride 90.6 L (98-107) mmol/L Carbon Dioxide 30 (22-30) mmol/L BUN 92 H (7-17) mg/dL Creatinine 7.5 H (0.6-1.2) mg/dL Glucose 196 H (65-100) mg/dL Calcium 7.0 L (8.4-10.2) mg/dL AST 107 H (5-40) units/L ALT 138 H (7-56) units/L Alkaline Phosphatase 168 H (35-129) units/L Total Protein 5.3 L (6.3-8.2) g/dL Albumin 2.7 L (3.9-5) g/dL Calcium panel 01/10/21 Range/Units 04:00 Calcium 7.0 L (8.4-10.2) mg/dL Albumin 2.7 L (3.9-5) g/dL Pituitary panel 01/10/21 Range/Units 04:00 Sodium 136 L (137-145) mmol/L Potassium 4.9 (3.6-5.0) mmol/L Chloride 90.6 L (98-107) mmol/L Carbon Dioxide 30 (22-30) mmol/L BUN 92 H (7-17) mg/dL Creatinine 7.5 H (0.6-1.2) mg/dL Glucose 196 H (65-100) mg/dL Calcium 7.0 L (8.4-10.2) mg/dL Adrenal panel 01/10/21 Range/Units 04:00 Sodium 136 L (137-145) mmol/L Potassium 4.9 (3.6-5.0) mmol/L Chloride 90.6 L (98-107) mmol/L Carbon Dioxide 30 (22-30) mmol/L BUN 92 H (7-17) mg/dL Creatinine 7.5 H (0.6-1.2) mg/dL Glucose 196 H (65-100) mg/dL Calcium 7.0 L (8.4-10.2) mg/dL Total Bilirubin 1.30 H (0.1-1.2) mg/dL AST 107 H (5-40) units/L ALT 138 H (7-56) units/L Alkaline Phosphatase 168 H (35-129) units/L Total Protein 5.3 L (6.3-8.2) g/dL Albumin 2.7 L (3.9-5) g/dL
--- NOTE | 2021-01-10 11:37 | Progress Note ---
Assessment and Plan Patient remains critically ill with guarded prognosis Echocardiogram was so technically difficult that was essentially uninterpretable. Continue low-dose IV amiodarone. After discussing with surgery and pulmonary, agree with stopping heparin due to bleeding from ET tube and chest tubes. Wean pressors as possible. We will continue to watch closely. - Patient Problems (1) HOMA (acute kidney injury) Current Visit: Yes Status: Acute (2) Diabetes Current Visit: Yes Status: Acute (3) Diabetic neuropathy Current Visit: Yes Status: Acute (4) Elevated liver enzymes Current Visit: Yes Status: Acute (5) Hyperglycemia due to type 2 diabetes mellitus Current Visit: Yes Status: Acute (6) ILD (interstitial lung disease) Current Visit: Yes Status: Acute (7) Pneumonia due to COVID-19 virus Current Visit: Yes Status: Acute (8) SIRS (systemic inflammatory response syndrome) Current Visit: Yes Status: Acute (9) Cellulitis Current Visit: No Status: Acute Qualifiers: Site of cellulitis of trunk: back (10) Morbid obesity Current Visit: No Status: Acute Subjective Principal diagnosis: COVID-19 Interval history: Patient is intubated and sedated Objective Vital Signs Temp Pulse Pulse Resp BP Pulse Ox 01/10/21 10:15 79 28 H 105/52 89 01/10/21 10:00 81 28 H 105/52 89 01/10/21 09:45 81 28 H 105/55 88 01/10/21 09:30 81 28 H 97/59 01/10/21 09:15 81 28 H 114/54 88 01/10/21 09:00 81 28 H 104/62 87 01/10/21 08:45 83 28 H 110/64 01/10/21 08:30 85 28 H 114/63 87 01/10/21 08:27 86 107/54 86 01/10/21 08:15 83 28 H 107/54 84 01/10/21 08:09 82 28 H 86 01/10/21 08:00 98.5 F 82 01/10/21 07:45 81 28 H 106/55 88 01/10/21 07:30 81 28 H 97/61 88 01/10/21 07:15 81 28 H 104/56 88 01/10/21 07:00 81 28 H 105/58 87 01/10/21 06:45 81 28 H 101/64 87 01/10/21 06:30 81 28 H 104/61 87 01/10/21 06:15 80 28 H 107/62 87 01/10/21 06:00 83 28 H 108/59 01/10/21 05:45 81 28 H 98/65 85 01/10/21 05:30 80 28 H 103/61 88 01/10/21 05:15 80 28 H 100/61 86 01/10/21 05:00 80 28 H 102/61 87 01/10/21 04:45 81 28 H 111/59 87 01/10/21 04:30 80 28 H 109/60 89 01/10/21 04:15 79 28 H 105/57 89 01/10/21 04:00 81 80 28 H 117/63 90 01/10/21 03:55 98.9 F 01/10/21 03:45 82 28 H 115/67 01/10/21 03:43 89 103/51 79 L 01/10/21 03:30 87 28 H 106/61 79 L 01/10/21 03:15 82 28 H 106/61 01/10/21 03:00 79 28 H 96/53 89 01/10/21 02:45 78 28 H 103/55 91 01/10/21 02:30 76 28 H 101/53 94 01/10/21 02:15 78 28 H 91/51 97 01/10/21 02:00 79 28 H 96/53 97 01/10/21 01:45 78 28 H 93/54 97 01/10/21 01:30 80 28 H 102/57 97 01/10/21 01:15 82 28 H 102/57 94 01/10/21 01:00 87 28 H 105/61 92 01/10/21 00:46 87 27 H 185/76 78 L 01/10/21 00:30 79 28 H 108/54 89 01/10/21 00:15 78 28 H 107/53 91 01/10/21 00:00 75 75 28 H 109/53 95 01/09/21 23:54 74 28 H 108/55 95 01/09/21 23:48 75 104/53 95 01/09/21 23:45 75 28 H 104/53 93 01/09/21 23:32 98.9 F 01/09/21 23:30 76 28 H 98/53 93 01/09/21 23:15 75 28 H 103/50 94 01/09/21 23:00 74 28 H 109/52 93 01/09/21 22:45 76 28 H 107/53 94 01/09/21 22:30 77 28 H 109/54 95 01/09/21 22:15 75 28 H 112/53 94 01/09/21 22:00 76 28 H 107/54 96 01/09/21 21:45 76 28 H 107/51 94 01/09/21 21:30 77 28 H 110/53 01/09/21 21:15 76 28 H 92/53 01/09/21 21:00 79 28 H 90/43 95 01/09/21 20:45 76 28 H 108/55 95 01/09/21 20:30 77 28 H 108/52 95 01/09/21 20:15 76 28 H 106/51 95 01/09/21 20:00 77 28 H 100/55 01/09/21 19:57 98.8 F 01/09/21 19:45 77 28 H 95/53 95 01/09/21 19:38 77 95/53 97 01/09/21 19:34 77 28 H 97 01/09/21 19:30 78 28 H 95/53 01/09/21 19:15 80 28 H 87/45 94 01/09/21 19:00 78 28 H 103/50 97 01/09/21 18:45 78 28 H 97/49 96 01/09/21 18:30 78 28 H 88/52 95 01/09/21 18:15 78 28 H 89/43 94 01/09/21 18:00 76 28 H 93/43 94 01/09/21 17:45 75 28 H 87/41 01/09/21 17:42 77 124/55 94 01/09/21 17:30 67 28 H 124/55 94 01/09/21 17:22 98.6 F 01/09/21 17:15 76 28 H 102/52 94 01/09/21 17:00 76 28 H 100/50 94 01/09/21 16:45 76 28 H 87/45 93 01/09/21 16:30 75 28 H 86/43 92 01/09/21 16:15 76 28 H 79/39 92 01/09/21 16:00 77 28 H 67/34 92 01/09/21 15:45 77 28 H 67/34 01/09/21 15:30 78 28 H 57/30 90 01/09/21 15:16 80 16 01/09/21 15:00 80 28 H 108/53 93 01/09/21 14:45 80 28 H 108/53 90 01/09/21 14:36 81 104/56 93 01/09/21 14:30 80 28 H 104/56 91 01/09/21 14:15 79 28 H 110/50 92 01/09/21 14:00 81 28 H 100/55 93 01/09/21 13:45 82 28 H 110/57 91 01/09/21 13:30 82 28 H 111/54 94 01/09/21 13:15 81 28 H 107/58 93 01/09/21 13:00 82 28 H 121/62 92 01/09/21 12:45 83 28 H 118/60 95 01/09/21 12:30 84 28 H 120/65 96 01/09/21 12:15 84 28 H 126/66 94 01/09/21 12:00 83 28 H 138/84 97 01/09/21 11:49 99.0 F 01/09/21 11:45 83 28 H 144/81 96 - Labs and Meds Cardiac Enzymes 01/10/21 Range/Units 04:00 AST 107 H (5-40) units/L Comprehensive Metabolic Panel 01/10/21 Range/Units 04:00 Sodium 136 L (137-145) mmol/L Potassium 4.9 (3.6-5.0) mmol/L Chloride 90.6 L (98-107) mmol/L Carbon Dioxide 30 (22-30) mmol/L BUN 92 H (7-17) mg/dL Creatinine 7.5 H (0.6-1.2) mg/dL Glucose 196 H (65-100) mg/dL Calcium 7.0 L (8.4-10.2) mg/dL AST 107 H (5-40) units/L ALT 138 H (7-56) units/L Alkaline Phosphatase 168 H (35-129) units/L Total Protein 5.3 L (6.3-8.2) g/dL Albumin 2.7 L (3.9-5) g/dL
[2021-01-10 12:39] LABS: Hematocrit 28.1 % (30.3-42.9); Hemoglobin 9.5 gm/dl (10.1-14.3); Mean Corpuscular HGB Conc 34 % (30-34); Mean Corpuscular Volume 95 fl (79-97); Platelet Count 127 K/mm3 (140-440); Red Blood Count 2.95 M/mm3 (3.65-5.03); Red Cell Distribution Width 13.4 % (13.2-15.2)
--- NOTE | 2021-01-10 13:34 | Progress Note ---
Assessment and Plan 1. Acute kidney injury: HOMA in the setting of shock and severe Covid infection. Renal US negative. Pt has green catheter. Requested bladder scan. Monitor renal function. Patient remain anuric. Renal prognosis is guarded. Avoid nephrotoxic agents. Meds dosage based on GFR. 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 Due to significant elevation in the creatinine level anuria patient was started on hemodialysis. D/w her son (01/08) over the phone about the indications, benefits, risks and alternatives involved in hemodialysis. He voiced under standing and gave verbal consent. Hemodialysis: 01/08. HD today as planned. 2. FEN: Elevated bicarb level, likely 2/2 hypercapnea. Monitor volume status and lytes. 3. Severe Covid infection: Completed Remdesivir, Received Tocilizumab. Continue IV steroids per pulmonary. Monitor inflammatory markers. Isolation. 4. Acute on chronic hypoxemic respiratory failure, POA: 2/2 COVID infection. CXR b/l opacities. Intubated, on vent. 5. A.fib with rapid ventricular rate, new onset: Patient is on Amiodarone drip. Followed by Cards. 6. Bilateral pneumothorax: S/p bilateral chest tubes. Continue supportive care, surgery and pulmonary following. 7. Diffuse subcutaneous emphysema/small pneumoperitoneum: Supportive care. 8. Shock: Likely 2/2 Covid infection. On Levophed, wean as tolerated. 9. DM type 2: SSI. Monitor bl sugar. 10. Elevated Transaminases: Trend. Subjective: Patient was seen and examined at the bedside. Patient is in ICU. D/w RN. Objective: General appearance: well-developed, appears stated age, morbidly obese, intubated, on vent HEENT: ATNC, pupils equal Neck: trachea midline Respiratory: diminished breath sounds, b/l chest tubes Heart: regular, S1S2, no murmur Gastrointestinal: obese, soft, bowel sounds heard, not tender Integumentary: no obvious rash Ext: trace extremity edema Neurologic: not responding : Green catheter Hemodialysis access: R femoral catheter Subjective Date of service: 01/10/21 Principal diagnosis: COVID-19 Objective - Vital Signs Vital signs: Vital Signs - 12hr 01/10/21 01/10/21 01/10/21 01:45 02:00 02:15 Temperature Pulse Rate 78 79 78 Pulse Rate [ From Monitor] Respiratory 28 H 28 H 28 H Rate Blood Pressure 93/54 96/53 91/51 O2 Sat by Pulse 97 97 97 Oximetry 01/10/21 01/10/21 01/10/21 02:30 02:45 03:00 Temperature Pulse Rate 76 78 79 Pulse Rate [ From Monitor] Respiratory 28 H 28 H 28 H Rate Blood Pressure 101/53 103/55 96/53 O2 Sat by Pulse 94 91 89 Oximetry 01/10/21 01/10/21 01/10/21 03:15 03:30 03:43 Temperature Pulse Rate 82 87 89 Pulse Rate [ From Monitor] Respiratory 28 H 28 H Rate Blood Pressure 106/61 106/61 103/51 O2 Sat by Pulse 79 L 79 L Oximetry 01/10/21 01/10/21 01/10/21 03:45 03:55 04:00 Temperature 98.9 F Pulse Rate 82 81 Pulse Rate [ 80 From Monitor] Respiratory 28 H 28 H Rate Blood Pressure 115/67 117/63 O2 Sat by Pulse 90 Oximetry 01/10/21 01/10/21 01/10/21 04:15 04:30 04:45 Temperature Pulse Rate 79 80 81 Pulse Rate [ From Monitor] Respiratory 28 H 28 H 28 H Rate Blood Pressure 105/57 109/60 111/59 O2 Sat by Pulse 89 89 87 Oximetry 01/10/21 01/10/21 01/10/21 05:00 05:15 05:30 Temperature Pulse Rate 80 80 80 Pulse Rate [ From Monitor] Respiratory 28 H 28 H 28 H Rate Blood Pressure 102/61 100/61 103/61 O2 Sat by Pulse 87 86 88 Oximetry 01/10/21 01/10/21 01/10/21 05:45 06:00 06:15 Temperature Pulse Rate 81 83 80 Pulse Rate [ From Monitor] Respiratory 28 H 28 H 28 H Rate Blood Pressure 98/65 108/59 107/62 O2 Sat by Pulse 85 87 Oximetry 01/10/21 01/10/21 01/10/21 06:30 06:45 07:00 Temperature Pulse Rate 81 81 81 Pulse Rate [ From Monitor] Respiratory 28 H 28 H 28 H Rate Blood Pressure 104/61 101/64 105/58 O2 Sat by Pulse 87 87 87 Oximetry 01/10/21 01/10/21 01/10/21 07:15 07:30 07:45 Temperature Pulse Rate 81 81 81 Pulse Rate [ From Monitor] Respiratory 28 H 28 H 28 H Rate Blood Pressure 104/56 97/61 106/55 O2 Sat by Pulse 88 88 88 Oximetry 01/10/21 01/10/21 01/10/21 08:00 08:09 08:15 Temperature 98.5 F Pulse Rate 82 83 Pulse Rate [ 82 From Monitor] Respiratory 28 H 28 H Rate Blood Pressure 107/54 O2 Sat by Pulse 86 84 Oximetry 01/10/21 01/10/21 01/10/21 08:27 08:30 08:45 Temperature Pulse Rate 86 85 83 Pulse Rate [ From Monitor] Respiratory 28 H 28 H Rate Blood Pressure 107/54 114/63 110/64 O2 Sat by Pulse 86 87 Oximetry 01/10/21 01/10/21 01/10/21 09:00 09:15 09:30 Temperature Pulse Rate 81 81 81 Pulse Rate [ From Monitor] Respiratory 28 H 28 H 28 H Rate Blood Pressure 104/62 114/54 97/59 O2 Sat by Pulse 87 88 Oximetry 01/10/21 01/10/21 01/10/21 09:45 10:00 10:15 Temperature Pulse Rate 81 81 79 Pulse Rate [ From Monitor] Respiratory 28 H 28 H 28 H Rate Blood Pressure 105/55 105/52 105/52 O2 Sat by Pulse 88 89 89 Oximetry 01/10/21 01/10/21 01/10/21 10:30 10:45 11:00 Temperature Pulse Rate 80 80 81 Pulse Rate [ From Monitor] Respiratory 28 H 28 H 28 H Rate Blood Pressure 107/55 103/49 112/58 O2 Sat by Pulse 90 91 90 Oximetry 01/10/21 01/10/21 01/10/21 11:15 11:30 12:00 Temperature 97.5 F L Pulse Rate 81 81 Pulse Rate [ From Monitor] Respiratory 28 H 28 H Rate Blood Pressure 102/50 109/52 O2 Sat by Pulse 91 91 Oximetry 01/10/21 12:12 Temperature Pulse Rate 80 Pulse Rate [ From Monitor] Respiratory Rate Blood Pressure 109/53 O2 Sat by Pulse 92 Oximetry - Lab 01/10/21 12:29 01/10/21 04:00 Most recent lab results ABG pH 7.235 (7.320-7.450) L 01/10/21 03:35 ABG O2 Saturation 79.1 (0-100) 01/10/21 03:35 Calcium 7.0 mg/dL (8.4-10.2) L 01/10/21 04:00 Phosphorus 6.70 mg/dL (2.5-4.5) H 01/08/21 04:29 Magnesium 2.50 mg/dL (1.7-2.3) H 01/08/21 04:29 Urine Creatinine 117.9 mg/dL (0.1-20.0) H 12/22/20 03:00 Urine Sodium 67 mmol/L 12/22/20 03:00 Medications & Allergies - Medications Allergies/Adverse Reactions: Allergies No Known Allergies Allergy (Verified 12/29/14 22:38) Home Medications: Home Medications Medication Instructions Recorded Confirmed Last Taken Type Cyclobenzaprine [Flexeril 10 MG 10 mg PO QHS PRN 12/21/20 12/21/20 Unknown History TAB] Gabapentin [Neurontin] 800 mg PO TID 12/21/20 12/21/20 12/20/20 History metFORMIN [Glucophage] 1,000 mg PO BID 12/21/20 12/21/20 12/20/20 History traMADoL [Ultram 50 MG tab] 50 mg PO BID PRN MDD 100 12/21/20 12/21/20 Unknown History Levothyroxine 137 mcg PO QDAY 12/26/20 12/26/20 12/20/20 08:00 History Active Medications: Generic Name Dose Route Start Last Admin Trade Name Freq PRN Reason Stop Dose Admin Acetaminophen 650 mg 12/20/20 23:15 12/24/20 09:40 Acetaminophen 325 Mg Tab PO 650 mg Q4H PRN Administration Pain MILD(1-3)/Fever >100.5/VARGAS Albuterol 2.5 mg 12/21/20 12:00 Albuterol 2.5 Mg/3 Ml Nebu IH Q4HRT PRN Shortness Of Breath Lipase/Protease/Amylase 1 each 01/05/21 17:30 Lipase 10,500/Protease 25,000/Amylase 43,750 (Units) Dr Giron FEEDTUBE PRN PRN For Clogged Feeding Tube Dextrose 50 ml 12/20/20 23:15 Dextrose 50% In Water (25gm) 50 Ml Syringe IV Q30MIN PRN Hypoglycemia Protocol Fentanyl 50 mcg 01/05/21 14:33 01/08/21 10:17 Fentanyl 100 Mcg/2 Ml Inj IV 50 mcg Q10MIN PRN Administration ANALGESIA Heparin Sodium (Porcine) 3,000 unit 01/08/21 14:12 01/08/21 18:40 Heparin 10,000 Units/10 Ml Vial IV 3,000 unit FRITZ PRN Administration hemodialysis Heparin Sodium (Porcine) 5,000 unit 01/10/21 08:00 Heparin 10,000 Units/10 Ml Vial 40 unit/kg (5400 unit) IV Q6H PRN Anti-Xa Assay < 0.1 units/ml Hydralazine HCl 10 mg 01/05/21 10:28 01/06/21 04:59 Hydralazine 20 Mg/1 Ml Inj IV 10 mg Q6H PRN Administration SBP >/=160; DBP >/=100 Propofol 1,000 mg in 100 mls @ 3.882 mls/hr 01/05/21 15:00 01/08/21 06:12 Diprivan 10 Mg/Ml IV 0 mcg/kg/min TITR TAMEKA 0 mls/hr Titration Protocol 5 MCG/KG/MIN Fentanyl Citrate 2,000 mcg in 100 mls @ 6.47 mls/hr 01/05/21 15:00 01/10/21 09:54 Fentanyl Drip Premix IV 3 mcg/kg/hr TITR TAMEKA 19.41 mls/hr Administration Protocol 1 MCG/KG/HR NORepinephrine/NS 8 MG-250 ML 8 mg in 250 mls @ 3.75 mls/hr 01/07/21 11:00 01/10/21 10:35 Norepinephrine/Ns 8 Mg-250 Ml (Double Conc) IV 18 mcg/min TITRATE TAMEKA 33.75 mls/hr Administration Protocol 2 MCG/MIN Amiodarone HCl 900 mg/ 500 mls @ 33.333 mls/hr 01/08/21 03:00 01/10/21 08:28 Dextrose IV 0.5 mg/min DIRECT TAMEKA 16.667 mls/hr Administration Protocol 1 MG/MIN Heparin Sodium/Sodium Chloride 25,000 unit in 500 mls @ 30 mls/hr 01/08/21 11:00 01/10/21 10:45 Heparin/ 0.45% Nacl-25,000 Unit/500 Ml IV 0 units/hr TITR TAMEKA 0 mls/hr Titration Protocol 1,500 UNITS/HR Vasopressin 20 unit/ Sodium 101 mls @ 9.09 mls/hr 01/08/21 11:00 01/09/21 14:28 Chloride IV 0 units/min TITR TAMEKA 0 mls/hr Titration Protocol 0.03 UNITS/MIN Phenylephrine HCl 100 mg/ 100 mls @ 3 mls/hr 01/08/21 14:00 01/09/21 09:55 Sodium Chloride IV 0 mcg/min TITR TAMEKA 0 mls/hr Titration Protocol 50 MCG/MIN Sodium Chloride 100 mls @ 999 mls/hr 01/08/21 14:12 Nacl 0.9% IV FRITZ PRN Hypotension Insulin Human Isoph/Insulin Regular 20 unit 01/07/21 17:00 01/10/21 08:27 Insulin Nph/Regular 70/30 Inj SUB-Q 20 unit BIDDIAB TAMEKA Administration Insulin Human Lispro 0 unit 01/07/21 00:00 01/10/21 12:20 Insulin Lispro 100 Unit/Ml SUB-Q 3 unit Q4H TAMEKA Administration Protocol Magnesium Hydroxide 30 ml 12/20/20 23:15 Magnesium Hydroxide (Mom) Oral Liqd Udc PO Q4H PRN Constipation Methylprednisolone Sodium Succinate 60 mg 01/07/21 12:00 01/10/21 12:23 Methylprednisolone Sod Succinate 40 Mg/1 Ml Inj IV 60 mg Q6HR TAMEKA Administration Ondansetron HCl 4 mg 12/20/20 23:15 Ondansetron 4 Mg/2 Ml Inj IV Q8H PRN Nausea And Vomiting Pantoprazole Sodium 40 mg 01/08/21 14:00 01/10/21 10:34 Pantoprazole 40 Mg Inj IV 40 mg BID TAMEKA Administration Simple Syrup 15 ml 01/05/21 17:30 Simple Syrup 15 Ml FEEDTUBE PRN PRN Hypoglycemia Simple Syrup 30 ml 01/05/21 17:30 Simple Syrup 15 Ml FEEDTUBE PRN PRN Hypoglycemia Sodium Bicarbonate 325 mg 01/05/21 17:30 Sodium Bicarbonate 325 Mg Tab FEEDTUBE PRN PRN For Clogged Feeding Tube Sodium Chloride 10 ml 12/21/20 10:00 01/10/21 10:34 Sodium Chloride 0.9% 10 Ml Flush Syringe IV 10 ml BID TAMEKA Administration Sodium Chloride 10 ml 12/20/20 23:15 01/09/21 21:01 Sodium Chloride 0.9% 10 Ml Flush Syringe IV 10 ml PRN PRN Administration LINE FLUSH Sodium Chloride 1 applic 12/22/20 12:00 01/10/21 10:35 [place] Saline Nasal Gel 14.1 Gm NS 1 applic BID TAMEKA Administration Sodium Chloride 5 ml 01/07/21 11:22 Sodium Chloride 0.9% 500 Ml Ivpb IV PRN PRN ART-LINE
--- NOTE | 2021-01-10 15:35 | Event Note ---
Date: 01/10/21 Patient's son Mr. Jimmy Mendoza requested DNR status, gave verbal consent to the charge nurse and I confirmed. Signed the necessary papers, DNR status now.
--- NOTE | 2021-01-10 16:02 | Event Note ---
Date: 01/10/21 Patient's son Mr. Sunny Mendoza called and discussed it ICU charge nurse and me and requested withdrawal of care. I have explained in detail the implications and the process of withdrawal of care Cisco Mendoza patient's son verbalized understanding. Gave verbal consent and we signed the necessary papers. Withdrawal of care orders given and informed, patient's nurse, respiratory therapist, farm operations technical director and ICU charge nurse.
[2021-01-10 16:10] VITALS: BP 107/47
--- NOTE | 2021-01-10 18:44 | Death Summary ---
Summary - Providers Date of service: 01/10/21 (Patient ) Consults: 12/20/20 23:15 Consult to Physician [CONS] Routine Comment: Consulting Provider: NURIA GONZALEZ Physician Instructions: Reason For Exam: Pneumonia R/O Covid-19,hypoxia Consult to Physician [CONS] Routine Comment: Consulting Provider: BLANCA JOEL Physician Instructions: Reason For Exam: Pneumonia R/O - COVID 19 12/21/20 06:18 Consult to Physician [CONS] Routine Comment: Consulting Provider: BERNA PIEDRA Physician Instructions: Reason For Exam: Elevated LFT 12/21/20 07:52 Consult to Physician [CONS] Routine Comment: Consulting Provider: AMARILYS ART Physician Instructions: Reason For Exam: HOMA 12/28/20 09:09 Consult to PICC Line RN [CONS] Routine Reason For Exam: midline placement Type Line:: Midline 01/05/21 17:30 Consult to Dietitian/Nutrition [CONS] Routine Physician Instructions: Assess nutrtn needs, initiate, modify, manage TF Reason For Exam: Reason for Consult: Write/Manage Tube Feeding Reason for Consult: Write/Manage Tube Feeding 01/07/21 04:16 Consult to Physician [CONS] Routine Comment: Consulting Provider: JAYDEN RAMÍREZ Physician Instructions: Reason For Exam: Pneumoperitoneum 01/07/21 11:37 Consult to PICC Line RN [CONS] Stat Reason For Exam: haily alert meds access Type Line:: PICC 01/08/21 05:46 Consult to Physician [CONS] Routine Comment: Consulting Provider: SAVTIA MASTERS Physician Instructions: Reason For Exam: new onset afib 01/08/21 07:56 Consult to Physician [CONS] Urgent Comment: Consulting Provider: AMARILYS ART Physician Instructions: Reason For Exam: Acute kidney injury/reconsult 01/08/21 09:54 Consult to Physician [CONS] Urgent Comment: Consulting Provider: JOEL SALCEDO Physician Instructions: Reason For Exam: Emergency hemodialysis/HD cath placement Attending: MAGGIE STEWART - summary Date of admission: 12/20/20 22:29 Date of : 01/10/21 (16:57) Reason for admission: Acute hypoxic respiratory failure/severe COVID-19 pneumonia Significant findings: Morbidly obese 55 y/o -[place] female patient past medical history of ILD on CT scan[per [facility] records] was admitted with worsening shortness of breath noted to have severe COVID-19 pneumonia. Patient was in acute hypoxic respiratory failure, high flow nasal oxygen and BiPAP dependent. Patient went into sudden respiratory failure requiring intubation and ventilatory support, patient also had bilateral pneumothorax and massive subcutaneous emphysema, surgery evaluated had bilateral chest tube placement . Patient went into acute kidney injury, with rapid worsening of renal function with creatinine of 7.0[01/07/2021] consulted nephrology, hemodialysis initiated Patient also had acute atrial fibrillation with rapid ventricular rate, cardiology evaluated and placed on amiodarone, beta-blockers. Heparin drip Patient has very poor prognosis with multiple medical problems, family son Mr. Sunny Scott was jenifer aware. Daily updates with patient's son. Patient had severe sepsis due to COVID-19 pneumonia and was in septic shock requiring 3 pressors, with very poor prognosis. Son was updated, patient continued to deteriorate, today afternoon patient's son called and requested DNR status and withdrawal of care and signed the necessary papers. And patient was extubated per family's request and patient on 01/10/2021 at 1657 hrs. pronounced by covering hospitalist Dr. Poon. Time of :01/10/2021 at 16:57 hrs. Cause of : --Acute hypoxic respiratory failure; intubated on vent Due to severe COVID-19 infection,h/o ILD Obesity hypoventilation syndrome . --Hypotension/septic shock; On multiple pressors, titrate and wean as tolerated --History of interstitial lung disease[ILD]; on CT scan at [facility] Received pulse steroids total 3 dose ,Follow blood sugars --Bilateral pneumothorax; s/p bilateral chest tube placements today per surgery --Subcutaneous emphysema/small pneumoperitoneum,Supportive care --A. fib with rapid ventricular rate; new onset Patient is on amiodarone drip, unable to give beta-blockers due to hypotension On heparin drip, Cardiology following, echocardiogram for LV function and ejection fraction --Acute kidney injury;Rapid worsening renal function Nephrology initiated hemodialysis, HD per schedule --Sepsis due to COVID-19 pneumonia Procalcitonin low, no need for antibiotics --Severe, COVID-19 infection;Guarded prognosis Evaluated managed appropriately per guidelines --Diabetes mellitus type 2; uncontrolled,A1c 10.3 --Elevated D-dimers; due to COVID-19 Negative PE, negative DVT --Hyponatremia; dehydration, poor oral intake --Morbid obesity; BMI 46.2 --OHS/JERMAINE; due to morbid obesity Patient needs outpatient sleep study to rule out JERMAINE CPAP/BiPAP at night and as needed --Elevated LFTs probably Covid related; resolved Patient at 1657 hrs. on 01/10/2021 Total time spent 55 minutes Procedures/treatments rendered: Intubation mechanical ventilation Bilateral chest tube placement Vas-Cath placement Pertinent studies: Multiple chest x-rays Multiple abnormal x-rays Renal ultrasound next CTA chest Lower extremity venous Doppler Disposition: Patient - Final diagnosis (1) Acute respiratory failure with hypoxia Note: Final diagnosis: (2) Sepsis with encephalopathy and septic shock Note: Final diagnosis: (3) Severe acute respiratory syndrome coronavirus 2 (SARS-CoV-2) infection ruled out Note: Final diagnosis: (4) ILD (interstitial lung disease) Note: Final diagnosis: (5) DNR (do not resuscitate) Note: Final diagnosis: (6) Morbid obesity with BMI of 45.0-49.9, adult Note: Final diagnosis: (7) Obstructive sleep apnea of adult Note: Final diagnosis: (8) Need for acute hemodialysis Note: Final diagnosis: (9) HOMA (acute kidney injury) Note: Final diagnosis: (10) Transaminitis Note: Final diagnosis:
--- NOTE | 2021-01-10 20:41 | Death Note ---
Note Date of : 01/10/21 Time of : 16:57 Time Pronounced: 17:00 - Preliminary Cause of (problem) (1) Acute respiratory failure with hypoxia Preliminary cause of
--- NOTE | 2021-01-10 21:32 | Electrocardiograph Report ---
[facility] Test Date: 2021-01-08 Test Time: 02:56:33 Pat Name: BROOKE HAYNES Department: Room: A261 1 Gender: F Practice Lead: OFELIA : 1965 Requested By: JEREMIAH MELCHOR Order Number: [id number] Reading MD: Andreas Burnett Measurements Intervals [place] Rate: 195 P: CO: QRS: 26 QRSD: 64 T: 260 QT: 233 QTc: 418 Interpretive Statements Atrial fibrillation with rapid V-rate Low voltage, precordial leads Repolarization abnormality, prob rate related Compared to ECG 01/06/2021 14:26:12 Atrial fibrillation has replaced sinus rhythm Electronically Signed On 01-10-2021 21:31:53 EDT by Andreas Burnett
== END 2021-01-10 17:00 | DRG 207 ==
LOC: ED 17:06 → 3A 22:29 → IMCU 12-23 18:07 → CC1 01-04 11:36
PROVIDERS: ADMIT Internal Medicine Geriatric Medicine; ATTEND Internal Medicine
PROC: XW033E5 Introduction of Remdesivir Anti-infective into Peripheral Vein, Percutaneous Approach, New Technology Group 5 (ICD-10-PCS; 2020-12-21)
PROC: 5A09557 Assistance with Respiratory Ventilation, Greater than 96 Consecutive Hours, Continuous Positive Airway Pressure (ICD-10-PCS; 2020-12-23)
PROC: XW033H5 Introduction of Tocilizumab into Peripheral Vein, Percutaneous Approach, New Technology Group 5 (ICD-10-PCS; 2020-12-26)
PROC: 4A033R1 Measurement of Arterial Saturation, Peripheral, Percutaneous Approach (ICD-10-PCS; 2020-12-30)
PROC: 0BH17EZ Insertion of Endotracheal Airway into Trachea, Via Natural or Artificial Opening (ICD-10-PCS; principal; 2021-01-05)
PROC: 5A1955Z Respiratory Ventilation, Greater than 96 Consecutive Hours (ICD-10-PCS; 2021-01-05)
PROC: 5A1D70Z Performance of Urinary Filtration, Intermittent, Less than 6 Hours Per Day (ICD-10-PCS; 2021-01-08)
PROC: 06HY33Z Insertion of Infusion Device into Lower Vein, Percutaneous Approach (ICD-10-PCS; 2021-01-08)
PROC: B54BZZA Ultrasonography of Right Lower Extremity Veins, Guidance (ICD-10-PCS; 2021-01-08)
PROC: 5A1D70Z Performance of Urinary Filtration, Intermittent, Less than 6 Hours Per Day (ICD-10-PCS; 2021-01-10)
DX: U07.1 COVID-19 (principal); A41.89 Other specified sepsis; J12.82 Pneumonia due to coronavirus disease 2019; J96.21 Acute and chronic respiratory failure with hypoxia; R65.21 Severe sepsis with septic shock; Z68.42 Body mass index [BMI] 45.0-49.9, adult; N17.9 Acute kidney failure, unspecified; E87.1 Hypo-osmolality and hyponatremia; E66.01 Morbid (severe) obesity due to excess calories; Z71.3 Dietary counseling and surveillance; R74.01 Elevation of levels of liver transaminase levels; E11.8 Type 2 diabetes mellitus with unspecified complications; J45.909 Unspecified asthma, uncomplicated; Z90.710 Acquired absence of both cervix and uterus; E11.40 Type 2 diabetes mellitus with diabetic neuropathy, unspecified; I10 Essential (primary) hypertension; D69.6 Thrombocytopenia, unspecified; J98.2 Interstitial emphysema; I48.91 Unspecified atrial fibrillation; E86.0 Dehydration; Z66 Do not resuscitate
CPT/HCPCS: 36415; 36600; 71045; 71275; 74018; 76705; 76770; 80048; 80053; 80074; 80076; 81001; 82140; 82570; 82728; 82805; 82947; 82962; 83036; 83615; 83735; 84100; 84132; 84145; 84300; 84484; 85007; 85014; 85018; 85025; 85027; 85049; 85379; 85520; 85610; 85730; 86140; 86850; 86900; 86901; 87040; 87070; 87205; 89050; 90686; 93005; 93306; 93970; 94002; 94003; 94640; 94644; 94660; G0378; C9113; J0282; J0330; J0360; J0456; J0696; J1100; J1644; J1650; J1815; J1940; J2060; J2270; J2370; J2704; J2920; J2930; J3010; J3262; J3490; J7030; J7050; J7060; J7070; J7120; Q9967; U0003